=== PATIENT | female | born 1980 | race Two or more races ===

== ENCOUNTER 2018-07-02 20:36 | Inpatient (IN) | payer MEDICAID ==
--- NOTE | 2018-07-02 20:55 | ER Document Report ---
ED General - General Stated Complaint: SHORTNESS OF BREATH Time Seen by Provider: 07/02/18 20:47 Notes: Patient is a 37-year-old female with history of alcohol and IV drug use that presents to the emergency department for chief complaint of leg swelling and shortness of breath. Patient states that she is been having swelling in her legs over the past 3 weeks, but over the past 48 hours she is in having difficulty breathing and had swelling of through her abdomen, and into her breast which she is never had before. She is had pain across her abdomen as well. She states is been harder for her to breathe, she does not wear oxygen at home, she denies history of COPD or heart failure. She thinks this may be related to her liver, but denies history of known liver disease. She states she drinks about 24 beers daily. She also has a history of IV drug use, but denies any of that today. She also reports having a history of anemia, denies sickle cell anemia, is not sure where her numbers usually are, denies having any melena, black or tarry stools. Past Medical History: Anemia, alcoholism, IV drug use Past Surgical History: C-sections Social History: Admits to smoking cigarettes, and drinking 24 beers daily, and history of IV drug use Family History: Reviewed and noncontributory for presenting illness Allergies: Reviewed, see documented allergy list. REVIEW OF SYSTEMS: Other than noted above, the 12 point review of systems was reviewed with the vladimir lewis and were negative, all pertinent findings are included in the HPI. PHYSICAL EXAMINATION: Vital signs reviewed, nursing noted reviewed. GENERAL: Patient is obese, appears significantly older than stated age, increased work of breathing HEAD: Atraumatic, normocephalic. EYES: Eyes appear normal, extraocular movements intact, conjunctiva are normal. Mild scleral icterus noted ENT: nares patent, oropharynx clear without exudates. Moist mucous membranes. NECK: Normal range of motion, supple without lymphadenopathy LUNGS: Diminished lung sounds at the bases, increased work of breathing, shallow breathing. HEART: Regular rate and rhythm without murmurs ABDOMEN: Abdomen is distended, firm, diffuse anasarca, up to the breasts. There is erythema around the lower abdomen, and is tender to palpate over the skin in these areas. EXTREMITIES: 3+ pitting edema to the thighs, bilaterally and equal, no erythema NEUROLOGICAL: No focal neurological deficits. Moves all extremities spon taneously Motor and sensory grossly intact on exam. PSYCH: Flat affect SKIN: Warm, Dry, normal turgor, erythema to the abdomen, stasis changes to the skin of the lower extremities Past Medical History - Social History Smoking Status: Current Every Day Smoker Family History: Reviewed & Not Pertinent Physical Exam - Vital signs Vitals: Temp Pulse Resp BP Pulse Ox 98.2 F 90 28 H 158/109 H 99 07/02/18 20:36 07/02/18 20:36 07/02/18 20:36 07/02/18 20:36 07/02/18 20:36 Course - Re-evaluation Re-evalutation: Patient seen and examined vital signs reviewed. Laboratory data and imaging were ordered as appropriate for the patient's presenting symptoms and complaint, with consideration of any critical or life threatening conditions that may be associated with their obtained history and exam as noted above. Patient was treated with IV Lasix, and was given a dose of IV Ancef, for concern for abdominal wall cellulitis Results were reviewed when available and demonstrated significant anemia, microcytic, likely iron deficiency, given history of heavy menstrual periods, CT imaging of the abdomen and pelvis demonstrated diffuse anasarca, but no abdominal wall abscess or intra-abdominal process, the chest x-ray of this patient demonstrated pulmonary edema, fitting with the patient's clinical setting of fluid overload, blood work that demonstrated a hyperbilirubinemia of 2.2, with slight elevation of AST and alk phos, INR was normal. 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 Blood cultures were ordered as well. Results were discussed with the patient at this point after careful consideration I feel that that patient should be admitted to the hospital. This was discussed with the patient that it is in the best interest for their care to be admitted for further evaluation and management. Patient agreed with this plan of care. A call was placed to the admitted physician, Dr. Finn who graciously accepted the patient onto their service. *Note is created using voice recognition software and may contain spelling, syntax or grammatical errors. Laboratory 07/02/18 07/02/18 07/02/18 20:40 20:40 20:40 WBC 9.6 RBC 3.70 L Hgb 7.1 L Hct 25.0 L MCV 67 L MCH 19.3 L MCHC 28.6 L RDW 23.9 H Plt Count 272 Total Counted 100 Seg Neutrophils % Not Reportable Seg Neuts % (Manual) 66 Band Neutrophils % 1 L Lymphocytes % Not Reportable Lymphocytes % (Manual) 23 Monocytes % Not Reportable Monocytes % (Manual) 6 Eosinophils % Not Reportable Eosinophils % (Manual) 4 Basophils % Not Reportable Basophils % (Manual) 0 Absolute Neutrophils Not Reportable Abs Neuts (Manual) 6.4 Absolute Lymphocytes Not Reportable Abs Lymphs (Manual) 2.2 Absolute Monocytes Not Reportable Abs Monocytes (Manual) 0.6 Absolute Eosinophils Not Reportable Absolute Eos (Manual) 0.4 Absolute Basophils Not Reportable Abs Basophils (Manual) 0.0 Nucleated RBCs 1 Platelet Comment ADEQUATE Polychromasia 1+ Hypochromasia 3+ Poikilocytosis 1+ Anisocytosis 3+ Target Cells 1+ Retic Count (auto) Absolute Retic PT INR APTT Sodium 131.4 L Potassium 3.8 Chloride 92 L Carbon Dioxide 25 Anion Gap 14 BUN 3 L Creatinine 0.78 Est GFR ( Amer) > 60 Est GFR (Non-Af Amer) > 60 Glucose 78 Lactic Acid Calcium 8.6 Total Bilirubin 2.2 H Direct Bilirubin 1.8 H Neonat Total Bilirubin Not Reportable Neonat Direct Bilirubin Not Reportable Neonat Indirect Bili Not Reportable AST 47 H ALT 23 Alkaline Phosphatase 210 H Troponin I < 0.012 NT-Pro-B Natriuret Pep Total Protein 7.7 Albumin 3.2 L Lipase 91.0 TSH Urine Color Urine Appearance Urine pH Ur Specific [place] Urine Protein Urine Glucose (UA) Urine Ketones Urine Blood Urine Nitrite Urine Bilirubin Urine Urobilinogen Ur Leukocyte Esterase Urine WBC (Auto) Squamous Epi Cells Auto Urine Mucus (Auto) Urine Ascorbic Acid Urine Opiates Screen Urine Methadone Screen Ur Barbiturates Screen Ur Phencyclidine Scrn Ur Amphetamines Screen U Benzodiazepines Scrn Urine Cocaine Screen U Marijuana (THC) Screen Blood Type Antibody Screen 07/02/18 07/02/1807/02/19 20:40 20:40 20:40 WBC RBC Hgb Hct MCV MCH MCHC RDW Plt Count Total Counted Seg Neutrophils % Seg Neuts % (Manual) Band Neutrophils % Lymphocytes % Lymphocytes % (Manual) Monocytes % Monocytes % (Manual) Eosinophils % Eosinophils % (Manual) Basophils % Basophils % (Manual) Absolute Neutrophils Abs Neuts (Manual) Absolute Lymphocytes Abs Lymphs (Manual) Absolute Monocytes Abs Monocytes (Manual) Absolute Eosinophils Absolute Eos (Manual) Absolute Basophils Abs Basophils (Manual) Nucleated RBCs Platelet Comment Polychromasia Hypochromasia Poikilocytosis Anisocytosis Target Cells Retic Count (auto) Absolute Retic PT 15.5 H INR 1.17 APTT 31.1 Sodium Potassium Chloride Carbon Dioxide Anion Gap BUN Creatinine Est GFR ( Amer) Est GFR (Non-Af Amer) Glucose Lactic Acid 1.6 Calcium Total Bilirubin Direct Bilirubin Neonat Total Bilirubin Neonat Direct Bilirubin Neonat Indirect Bili AST ALT Alkaline Phosphatase Troponin I NT-Pro-B Natriuret Pep 1710 H Total Protein Albumin Lipase TSH Urine Color Urine Appearance Urine pH Ur Specific [place] Urine Protein Urine Glucose (UA) Urine Ketones Urine Blood Urine Nitrite Urine Bilirubin Urine Urobilinogen Ur Leukocyte Esterase Urine WBC (Auto) Squamous Epi Cells Auto Urine Mucus (Auto) Urine Ascorbic Acid Urine Opiates Screen Urine Methadone Screen Ur Barbiturates Screen Ur Phencyclidine Scrn Ur Amphetamines Screen U Benzodiazepines Scrn Urine Cocaine Screen U Marijuana (THC) Screen Blood Type Antibody Screen 07/02/18 07/02/18 07/02/18 20:40 20:40 22:21 WBC RBC Hgb Hct MCV MCH MCHC RDW Plt Count Total Counted Seg Neutrophils % Seg Neuts % (Manual) Band Neutrophils % Lymphocytes % Lymphocytes % (Manual) Monocytes % Monocytes % (Manual) Eosinophils % Eosinophils % (Manual) Basophils % Basophils % (Manual) Absolute Neutrophils Abs Neuts (Manual) Absolute Lymphocytes Abs Lymphs (Manual) Absolute Monocytes Abs Monocytes (Manual) Absolute Eosinophils Absolute Eos (Manual) Absolute Basophils Abs Basophils (Manual) Nucleated RBCs Platelet Comment Polychromasia Hypochromasia Poikilocytosis Anisocytosis Target Cells Retic Count (auto) 4.65 H Absolute Retic 0.170 H PT INR APTT Sodium Potassium Chloride Carbon Dioxide Anion Gap BUN Creatinine Est GFR ( Amer) Est GFR (Non-Af Amer) Glucose Lactic Acid Calcium Total Bilirubin Direct Bilirubin Neonat Total Bilirubin Neonat Direct Bilirubin Neonat Indirect Bili AST ALT Alkaline Phosphatase Troponin I NT-Pro-B Natriuret Pep Total Protein Albumin Lipase TSH 3.60 Urine Color Urine Appearance Urine pH Ur Specific [place] Urine Protein Urine Glucose (UA) Urine Ketones Urine Blood Urine Nitrite Urine Bilirubin Urine Urobilinogen Ur Leukocyte Esterase Urine WBC (Auto) Squamous Epi Cells Auto Urine Mucus (Auto) Urine Ascorbic Acid Urine Opiates Screen Urine Methadone Screen Ur Barbiturates Screen Ur Phencyclidine Scrn Ur Amphetamines Screen U Benzodiazepines Scrn Urine Cocaine Screen U Marijuana (THC) Screen Blood Type A NEGATIVE Antibody Screen NEGATIVE 07/02/18 07/02/18 22:42 22:42 WBC RBC Hgb Hct MCV MCH MCHC RDW Plt Count Total Counted Seg Neutrophils % Seg Neuts % (Manual) Band Neutrophils % Lymphocytes % Lymphocytes % (Manual) Monocytes % Monocytes % (Manual) Eosinophils % Eosinophils % (Manual) Basophils % Basophils % (Manual) Absolute Neutrophils Abs Neuts (Manual) Absolute Lymphocytes Abs Lymphs (Manual) Absolute Monocytes Abs Monocytes (Manual) Absolute Eosinophils Absolute Eos (Manual) Absolute Basophils Abs Basophils (Manual) Nucleated RBCs Platelet Comment Polychromasia Hypochromasia Poikilocytosis Anisocytosis Target Cells Retic Count (auto) Absolute Retic PT INR APTT Sodium Potassium Chloride Carbon Dioxide Anion Gap BUN Creatinine Est GFR ( Amer) Est GFR (Non-Af Amer) Glucose Lactic Acid Calcium Total Bilirubin Direct Bilirubin Neonat Total Bilirubin Neonat Direct Bilirubin Neonat Indirect Bili AST ALT Alkaline Phosphatase Troponin I NT-Pro-B Natriuret Pep Total Protein Albumin Lipase TSH Urine Color YELLOW Urine Appearance CLEAR Urine pH 6.0 Ur Specific [place] 1.003 Urine Protein NEGATIVE Urine Glucose (UA) NEGATIVE Urine Ketones TRACE H Urine Blood MODERATE H Urine Nitrite NEGATIVE Urine Bilirubin NEGATIVE Urine Urobilinogen NEGATIVE Ur Leukocyte Esterase NEGATIVE Urine WBC (Auto) 0 Squamous Epi Cells Auto <1 Urine Mucus (Auto) RARE Urine Ascorbic Acid NEGATIVE Urine Opiates Screen NEGATIVE Urine Methadone Screen NEGATIVE Ur Barbiturates Screen NEGATIVE Ur Phencyclidine Scrn NEGATIVE Ur Amphetamines Screen NEGATIVE U Benzodiazepines Scrn NEGATIVE Urine Cocaine Screen UNCONFIRMED POSITIVE U Marijuana (THC) Screen NEGATIVE Blood Type Antibody Screen - Vital Signs Vital signs: Temp Pulse Resp BP Pulse Ox 98.2 F 90 28 H 92/64 L 97 07/02/18 20:36 07/02/18 20:36 07/03/18 02:03 07/03/18 02:03 07/03/18 01:46 - Laboratory Result Diagrams: 07/02/18 20:40 07/02/18 20:40 Laboratory results interpreted by me: 07/02/18 07/02/18 07/02/18 20:40 20:40 20:40 RBC 3.70 L Hgb 7.1 L Hct 25.0 L MCV 67 L MCH 19.3 L MCHC 28.6 L RDW 23.9 H Band Neutrophils % 1 L Retic Count (auto) Absolute Retic PT 15.5 H Sodium 131.4 L Chloride 92 L BUN 3 L Total Bilirubin 2.2 H Direct Bilirubin 1.8 H AST 47 H Alkaline Phosphatase 210 H NT-Pro-B Natriuret Pep Albumin 3.2 L Urine Ketones Urine Blood 07/02/18 07/02/18 07/02/18 20:40 20:40 22:42 RBC Hgb Hct MCV MCH MCHC RDW Band Neutrophils % Retic Count (auto) 4.65 H Absolute Retic 0.170 H PT Sodium Chloride BUN Total Bilirubin Direct Bilirubin AST Alkaline Phosphatase NT-Pro-B Natriuret Pep 1710 H Albumin Urine Ketones TRACE H Urine Blood MODERATE H - EKG Interpretation by Me Additional EKG results interpreted by me: EKG demonstrates sinus rhythm with a ventricular rate of 90 bpm, normal axis, QTC 490 ms, no ST elevation noted, no prior for comparison. Discharge - Discharge Clinical Impression: Anasarca, Hyperbilirubinemia, Alcoholism Anemia Qualifiers: Anemia type: unspecified type Qualified Code(s): D64.9 - Anemia, unspecified Pulmonary edema Qualifiers: Chronicity: acute Qualified Code(s): J81.0 - Acute pulmonary edema Condition: Stable Disposition: ADMITTED INPATIENT Admitting Provider: Hospitalist - Dr. Finn Unit Admitted: Telemetry
[2018-07-02 21:16] LABS: MEAN CORPUSCULAR HGB CONC 28.6 g/dL (32.0-36.0)
--- NOTE | 2018-07-02 21:16 | EKG REPORT ---
SEVERITY:- BORDERLINE ECG - SINUS RHYTHM BORDERLINE T ABNORMALITIES, ANTERIOR LEADS BORDERLINE PROLONGED QT INTERVAL : Confirmed by: Jaspal Perez MD 02-Jul-2018 21:15:28
[2018-07-02 21:22] LABS: ALANINE AMINOTRANSFERASE 23 U/L (9-52); ALBUMIN 3.2 g/dL (3.5-5.0); ALKALINE PHOSPHATASE 210 U/L (38-126); ANION GAP 14 (5-19); ASPARTATE AMINO TRANSFERASE 47 U/L (14-36); BILIRUBIN,DIRECT 1.8 mg/dL (0.0-0.4); BILIRUBIN,TOTAL 2.2 mg/dL (0.2-1.3); BLOOD UREA NITROGEN 3 mg/dL (7-20); CALCIUM 8.6 mg/dL (8.4-10.2); CARBON DIOXIDE 25 mmol/L (22-30); CHLORIDE 92 mmol/L (98-107); GLUCOSE 78 mg/dL (75-110); POTASSIUM 3.8 mmol/L (3.6-5.0); SODIUM 131.4 mmol/L (137-145); TOTAL PROTEIN 7.7 g/dL (6.3-8.2)
[2018-07-02 21:25] LABS: MEAN CORPUSCULAR HEMOGLOBIN 19.3 pg (27.0-33.4); MEAN CORPUSCULAR VOLUME 67 fl (80-97); PLATELET COUNT 272 10^3/uL (150-450); RED CELL DISTRIBUTION WIDTH 23.9 % (11.5-14.0); WHITE BLOOD COUNT 9.6 10^3/uL (4.0-10.5)
[2018-07-02 21:32] LABS: HEMOGLOBIN 7.1 g/dL (12.0-15.5); INTERNATIONAL RATION (INR) 1.17; PROTHROMBIN TIME 15.5 SEC (11.4-15.4)
[2018-07-02 21:33] LABS: PARTIAL THROMBOPLASTIN TIME 31.1 SEC (23.5-35.8)
[2018-07-02 21:38] LABS: ABSOLUTE LYMPHOCYTES# (MANUAL) 2.2 10^3/uL (0.5-4.7); ABSOLUTE MONOCYTES # (MANUAL) 0.6 10^3/uL (0.1-1.4); ABSOLUTE NEUTROPHILS# (MANUAL) 6.4 10^3/uL (1.7-8.2); BAND NEUTROPHILS % (MANUAL) 1 % (3-5); BASOPHILS % (MANUAL) 0 % (0-2); EOSINOPHILS % (MANUAL) 4 % (0-6); LYMPHOCYTES % (MANUAL) 23 % (13-45); MONOCYTES % (MANUAL) 6 % (3-13); NUCLEATED RED BLOOD CELLS 1 /100 WBC (0); SEGMENTED NEUTROPHILS % (MAN) 66 % (42-78); TOTAL CELLS COUNTED 100
[2018-07-02 21:44] LABS: POLYCHROMASIA 1+
[2018-07-02 21:45] LABS: ANISOCYTOSIS 3+; HYPOCHROMASIA 3+; PLATELET COMMENT ADEQUATE; POIKILOCYTOSIS 1+; TARGET CELLS 1+
--- NOTE | 2018-07-02 21:46 | RADIOLOGY REPORT (SQ) ---
EXAM DESCRIPTION: XR CHEST 1 VIEW COMPLETED DATE/TME: 07/02/2018 21:05 CLINICAL HISTORY: 37 years, Female, shortness of breath Comparison: None FINDINGS: No focal lung consolidation. Right hemidiaphragm is elevated. No pleural effusion. No pneumothorax. Moderate cardiomegaly. Mild central pulmonary vascular congestion. No acute osseous abnormality. Soft tissues are unremarkable. IMPRESSION: Moderate cardiomegaly and mild central pulmonary vascular congestion.
[2018-07-02] MEDS ORDERED: FUROSEMIDE INJ/PF 40 MG/4 ML SDV IV ONE (21:52)
[2018-07-02] MEDS ORDERED: CEFAZOLIN 2 GM/D5W RTU 2 GM/50 ML RTUPB IV ONE (22:45)
[2018-07-02 23:07] LABS: APPEARANCE,URINE CLEAR; BILIRUBIN,URINE NEGATIVE (NEGATIVE); COLOR,URINE YELLOW; GLUCOSE, URINE NEGATIVE (NEGATIVE); KETONES,URINE TRACE mg/dL (NEGATIVE); LEUKOCYTE ESTERASE,URINE NEGATIVE (NEGATIVE); NITRITE,URINE NEGATIVE (NEGATIVE); PROTEIN,URINE NEGATIVE (NEGATIVE); URINE SPECIFIC GRAVITY 1.003; UROBILINOGEN,URINE NEGATIVE mg/dL (<2.0)
--- NOTE | 2018-07-03 00:52 | RADIOLOGY REPORT (SQ) ---
EXAM DESCRIPTION: CT ABDOMEN PELVIS WITH IV CONTRAST COMPLETED DATE/TME: 07/02/2018 23:19 CLINICAL HISTORY: 37 years, Female, abdominal wall cellulitis, anasarca COMPARISON: None. TECHNIQUE: Axial CT images of the abdomen and pelvis were obtained after demonstration of IV contrast. Sagittal and coronal reformats were performed. [facility] [id number] Images stored on PACS. All CT scanners at this facility use dose modulation, iterative reconstruction, and/or weight based dosing when appropriate to reduce radiation dose to as low as reasonably achievable (ALARA). [facility]: Dose Right [facility]: CareDose [facility]: Dose Right [facility]: Teradose 4D [facility]: Smart Memvu LIMITATIONS: None. FINDINGS: Lung bases are clear. The liver is hypodense with involvement of perihepatic fluid. The gallbladder, pancreas, spleen, and adrenal glands are unremarkable. Both kidneys appear normal with no evidence of hydronephrosis. There is a mild amount of free fluid. There is no intraperitoneal free air. There is no lymphadenopathy. The abdominal aorta is normal caliber. There is diffuse anasarca. There is no focal fluid collection or abscess identified. The stomach and small bowel are unremarkable. The appendix is not uniquely identified. The colon is distended. The uterus is unremarkable. The urinary bladder is decompressed by a Blank catheter. There are no lytic or blastic bone lesions. IMPRESSION: Diffuse anasarca with no focal fluid collection or abscess identified. Fatty liver. TECHNICAL DOCUMENTATION: Quality ID # [id number]: Final reports with documentation of one or more dose reduction techniques (e.g., Automated exposure control, adjustment of the mA and/or kV according to patient size, use of iterative reconstruction technique) copyright 2011 [employer]- All Rights Reserved
[2018-07-03] MEDS: CEFAZOLIN INJ 1 GM VIAL ONE ×2 (00:58→01:00)
[2018-07-03] MEDS ORDERED: MAG HYDROX/AL HYDROX/SIMETH SUSP 30 ML UDCUP PO PRN (01:17)
[2018-07-03] MEDS ORDERED: IRON SUCROSE COMPLEX INJ/PF 100 MG/5 ML SDV IV ONE ×2 (01:17→04:15)
[2018-07-03] MEDS ORDERED: ACETAMINOPHEN 325 MG TABLET PO PRN (01:17)
[2018-07-03 01:40] LABS: RETICULOCYTE COUNT (AUTO) 4.65 % (0.66-2.85)
[2018-07-03 02:03] LABS: IRON(TIBC) 14.7 ug/dL (37-170)
[2018-07-03 02:41] LABS: FERRITIN 9.72 ng/mL (6.2-137.0)
[2018-07-03] MEDS: POTASSIUM CHLORIDE 10 MEQ CAPSULE.ER PO SCH ×2 (02:46→10:12)
[2018-07-03] MEDS: FLUCONAZOLE 100 MG TABLET PO SCH ×2 (02:47→10:28)
[2018-07-03 03:01] LABS: URINE AMPHETAMINES SCREEN NEGATIVE; URINE BARBITURATES SCREEN NEGATIVE; URINE BENZODIAZEPINES SCREEN NEGATIVE; URINE COCAINE SCREEN UNCONFIRMED POSITIVE; URINE MARIJUANA (THC) SCREEN NEGATIVE; URINE METHADONE SCREEN NEGATIVE; URINE PHENCYCLIDINE SCREEN NEGATIVE
[2018-07-03] MEDS ORDERED: CEFTRIAXONE 1 GM/D5W RTU 1 GM/50 ML RTUPB IV ONE (05:00)
[2018-07-03] MEDS ORDERED: DEXAMETHASONE 0.5 MG TABLET PO ONE ×2 (05:31→10:00)
--- NOTE | 2018-07-03 05:48 | PDOC H&P ---
History of Present Illness Admission Date/PCP: 07/03/18 01:33 Patient complains of: Swelling History of Present Illness: ZANDER GIBBS is a 37 year old female with a history of morbid obesity, anemia, depression, tobacco, alcohol dependence and IV drug abuse. She presents with 2 weeks of lower extremity and abdominal swelling now with notable difficulty in breathing. She admits fever, denies localized pain, change in urine or new medications. She has no recent medical evaluation. In the emergency department she is found with tachypnea, use of accessory muscles during breathing, profound anemia with anasarca and a systolic murmur. She receives Ancef and referred to the hospitalist for admission. She is a poor historian but denies history of alcoholic hepatitis or bacterial peritonitis. Past Medical History Cardiac Medical History: Reports: None Pulmonary Medical History: Reports: None, Bronchitis Neurological Medical History: Reports: None Endocrine Medical History: Reports: None, Obesity Renal/ Medical History: Reports: None Malignancy Medical History: Reports: None GI Medical History: Reports: None Musculoskeltal Medical History: Reports: None Skin Medical History: Reports: None Psychiatric Medical History: Reports: Alcohol Dependency, Bipolar Disorder, Depression, General Anxiety Disorder, Tobacco Dependency Hematology: Reports: Anemia Past Surgical History Past Surgical History: Reports: None Social History Information Source: Patient, Emergency Med Personnel Lives with: Friend Smoking Status: Current Every Day Smoker Cigarettes Packs Per Day: 1 Frequency of Alcohol Use: Heavy - 24 beers per day with history of seizure Hx Recreational Drug Use: Yes Drugs: Cocaine Hx Prescription Drug Abuse: Yes - Advance Directive Resuscitation Status: Full Code Family History Family History: Reviewed & Not Pertinent Parental Family History Reviewed: Yes Children Family History Reviewed: Yes Sibling(s) Family History Reviewed.: Yes Review of Systems Constitutional: PRESENT: as per HPI, fatigue, fever(s), weakness, weight gain Eyes: ABSENT: visual disturbances Ears: ABSENT: hearing changes Cardiovascular: PRESENT: dyspnea on exertion, edema, orthropnea. ABSENT: chest pain, palpitations Respiratory: PRESENT: as per HPI, dyspnea. ABSENT: hemoptysis, sputum Gastrointestinal: ABSENT: abdominal pain, constipation, diarrhea, hematemesis, hematochezia, nausea, vomiting Genitourinary: ABSENT: dysuria, hematuria Musculoskeletal: ABSENT: joint swelling Integumentary: ABSENT: rash, wounds Neurological: ABSENT: abnormal gait, abnormal speech, confusion, dizziness, fo noah weakness, syncope Psychiatric: PRESENT: depression Endocrine: ABSENT: polydipsia, polyphagia, polyuria Hematologic/Lymphatic: ABSENT: easy bleeding, easy bruising Physical Exam Vital Signs: Temp Pulse Resp BP Pulse Ox 98.5 F 95 29 H 121/68 98 07/03/18 03:23 07/03/18 03:23 07/03/18 03:02 07/03/18 03:23 07/03/18 03:23 Intake & Output 07/01/18 07/02/18 07/03/18 11:59 11:59 11:59 Intake Total 50 Output Total 2675 Balance -2625 Weight 141 kg General appearance: PRESENT: cooperative, disheveled, mild distress, morbidly obese Head exam: PRESENT: atraumatic, normocephalic Eye exam: PRESENT: conjunctiva pink, EOMI, PERRLA. ABSENT: scleral icterus Ear exam: PRESENT: normal external ear exam Mouth exam: PRESENT: moist, tongue midline Neck exam: ABSENT: carotid bruit, JVD, lymphadenopathy, thyromegaly Respiratory exam: PRESENT: accessory muscle use, crackles, prolonged expiratory phas, retraction, symmetrical, tachypnea. ABSENT: stridor, wheezes Cardiovascular exam: PRESENT: +S1, +S2, systolic murmur, tachycardia Pulses: PRESENT: normal dorsalis pedis pul Vascular exam: PRESENT: normal capillary refill GI/Abdominal exam: PRESENT: diminished bowel sounds, distended, firm, hypoactive bowel sounds. ABSENT: ascites, tenderness Rectal exam: PRESENT: deferred Extremities exam: PRESENT: full ROM, pedal edema, +2 edema. ABSENT: tenderness Musculoskeletal exam: PRESENT: tenderness. ABSENT: full ROM Neurological exam: PRESENT: alert, altered, awake, oriented to person, oriented to place, oriented to situation, CN II-XII grossly intact. ABSENT: motor sensory deficit Psychiatric exam: PRESENT: flat affect, unusual affect Skin exam: PRESENT: dry, intact, warm. ABSENT: cyanosis, rash Results Laboratory Results: 07/02/18 20:40 07/02/18 20:40 07/02/18 07/02/18 07/02/18 20:40 20:40 20:40 WBC 9.6 RBC 3.70 L Hgb 7.1 L Hct 25.0 L MCV 67 L MCH 19.3 L MCHC 28.6 L RDW 23.9 H Plt Count 272 Seg Neutrophils % Not Reportable Lymphocytes % Not Reportable Monocytes % Not Reportable Eosinophils % Not Reportable Basophils % Not Reportable Absolute Neutrophils Not Reportable Absolute Lymphocytes Not Reportable Absolute Monocytes Not Reportable Absolute Eosinophils Not Reportable Absolute Basophils Not Reportable Retic Count (auto) Absolute Retic Sodium 131.4 L Potassium 3.8 Chloride 92 L Carbon Dioxide 25 Anion Gap 14 BUN 3 L Creatinine 0.78 Est GFR ( Amer) > 60 Est GFR (Non-Af Amer) > 60 Glucose 78 Lactic Acid 1.6 Calcium 8.6 Total Bilirubin 2.2 H AST 47 H ALT 23 Alkaline Phosphatase 210 H Total Protein 7.7 Albumin 3.2 L Lipase 91.0 TSH Urine Color Urine Appearance Urine pH Ur Specific [place] Urine Protein Urine Glucose (UA) Urine Ketones Urine Blood Urine Nitrite Ur Leukocyte Esterase Urine WBC (Auto) Blood Type Antibody Screen 07/02/18 07/02/18 07/02/18 20:40 20:40 22:21 WBC RBC Hgb Hct MCV MCH MCHC RDW Plt Count Seg Neutrophils % Lymphocytes % Monocytes % Eosinophils % Basophils % Absolute Neutrophils Absolute Lymphocytes Absolute Monocytes Absolute Eosinophils Absolute Basophils Retic Count (auto) 4.65 H Absolute Retic 0.170 H Sodium Potassium Chloride Carbon Dioxide Anion Gap BUN Creatinine Est GFR ( Amer) Est GFR (Non-Af Amer) Glucose Lactic Acid Calcium Total Bilirubin AST ALT Alkaline Phosphatase Total Protein Albumin Lipase TSH 3.60 Urine Color Urine Appearance Urine pH Ur Specific [place] Urine Protein Urine Glucose (UA) Urine Ketones Urine Blood Urine Nitrite Ur Leukocyte Esterase Urine WBC (Auto) Blood Type A NEGATIVE Antibody Screen NEGATIVE 07/02/18 22:42 WBC RBC Hgb Hct MCV MCH MCHC RDW Plt Count Seg Neutrophils % Lymphocytes % Monocytes % Eosinophils % Basophils % Absolute Neutrophils Absolute Lymphocytes Absolute Monocytes Absolute Eosinophils Absolute Basophils Retic Count (auto) Absolute Retic Sodium Potassium Chloride Carbon Dioxide Anion Gap BUN Creatinine Est GFR ( Amer) Est GFR (Non-Af Amer) Glucose Lactic Acid Calcium Total Bilirubin AST ALT Alkaline Phosphatase Total Protein Albumin Lipase TSH Urine Color YELLOW Urine Appearance CLEAR Urine pH 6.0 Ur Specific [place] 1.003 Urine Protein NEGATIVE Urine Glucose (UA) NEGATIVE Urine Ketones TRACE H Urine Blood MODERATE H Urine Nitrite NEGATIVE Ur Leukocyte Esterase NEGATIVE Urine WBC (Auto) 0 Blood Type Antibody Screen 07/02/18 07/02/18 20:40 20:40 Troponin I < 0.012 NT-Pro-B Natriuret Pep 1710 H Impressions: Chest X-Ray 07/02/18 21:05 IMPRESSION: Moderate cardiomegaly and mild central pulmonary vascular congestion. Abdomen/Pelvis CT 07/02/18 23:19 IMPRESSION: Diffuse anasarca with no focal fluid collection or abscess identified. Fatty liver. 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 Is this a current diagnosis for this admission?: Yes Plan: Follow-up dexamethasone suppression test, ACTH and consider MRI pituitary (3) Alcoholism Is this a current diagnosis for this admission?: Yes Plan: Thiamine, folate, as needed Ativan, anticipate withdrawal given history (4) Anasarca Is this a current diagnosis for this admission?: Yes Plan: 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 - Time Time Spent: 50 to 70 Minutes - Inpatient Certification Medical Necessity: Need Close Monitoring Due to Risk of Patient Decompensation
[2018-07-03] MEDS: HEPARIN SOD (PORCINE) 5,000 UNIT/ML 1 ML SYRINGE SUBCUT SCH ×3 (06:28→21:13)
[2018-07-03 08:03] LABS: FOLATE 4.27 ng/mL (>2.76)
[2018-07-03] MEDS: DOCUSATE SODIUM 100 MG CAPSULE PO SCH ×2 (10:12→17:02)
[2018-07-03] MEDS: KETOCONAZOLE 2% SHAMPOO 120 ML BOTTLE TP SCH (10:14)
[2018-07-03] MEDS: FUROSEMIDE INJ/PF 40 MG/4 ML SDV IV SCH (10:27)
[2018-07-03] MEDS: CEFTRIAXONE 1 GM/D5W RTU 1 GM/50 ML RTUPB IV SCH (10:29)
[2018-07-03] MEDS: LORAZEPAM INJ 2 MG/1 ML VIAL IV PRN ×2 (16:21→21:19)
[2018-07-03] MEDS: ALBUMIN HUMAN 12.5 GM/50 ML RTUINJ IV SCH ×2 (16:59→17:12)
[2018-07-03] MEDS ORDERED: NORMAL SALINE 250 ML IV PRN ×2 (17:05)
[2018-07-03] MEDS: THIAMINE HCL 100 MG TABLET PO SCH (17:29)
[2018-07-03] MEDS ORDERED: NORMAL SALINE 1000 ML 1,000 ML with POTASSIUM CHLORIDE 20 MEQ, MAGNESIUM SULFATE 8 MEQ,... IV SCH ×4 (18:00)
--- NOTE | 2018-07-03 18:46 | PDOC PROGRESS REPORT ---
Subjective Progress Note for:: 07/03/18 Subjective:: 37 year old female with a history of morbid obesity, anemia, depression, tobacco, alcohol dependence and IV drug abuse. She presents with 2 weeks of lower extremity and abdominal swelling now with notable difficulty in breathing. She admits fever, denies localized pain, change in urine or new medications. She has no recent medical evaluation. In the emergency department she is found with tachypnea, use of accessory muscles during breathing, profound anemia with anasarca and a systolic murmur. She receives Ancef and referred to the hospitalist for admission. She is a poor historian but denies history of alcoholic hepatitis or bacterial peritonitis. 07/03/2018-no acute events since the admission. Patient was more from a third floor to room #405. This is because patient was admitted under telemetry. Patient is complaining of anxiety and agitation we started her on IV Ativan. Patient is also history of alcohol use be going to watch for the DTs. Reason For Visit: ANASARCA SOB IV DRUG USE Physical Exam Vital Signs: Temp Pulse Resp BP Pulse Ox 99.4 F 106 H 18 133/74 H 95 07/03/18 11:10 07/03/18 17:40 07/03/18 17:40 07/03/18 11:10 07/03/18 17:40 Intake & Output 07/02/18 07/03/18 07/04/18 06:59 06:59 06:59 Intake Total 50 525 Output Total 2950 1100 Balance -2900 -575 Weight 137.9 kg General appearance: PRESENT: mild distress, morbidly obese Head exam: PRESENT: atraumatic Eye exam: PRESENT: PERRLA Mouth exam: PRESENT: moist, tongue midline Neck exam: ABSENT: carotid bruit, JVD, lymphadenopathy, thyromegaly Respiratory exam: PRESENT: decreased breath sounds Cardiovascular exam: PRESENT: tachycardia GI/Abdominal exam: PRESENT: ascites Extremities exam: PRESENT: full ROM. ABSENT: calf tenderness, clubbing, pedal edema Neurological exam: PRESENT: alert, awake, CN II-XII grossly intact. ABSENT: motor sensory deficit Psychiatric exam: PRESENT: agitated, anxious Results Laboratory Results: 07/02/18 20:40 07/02/18 20:40 07/02/18 07/02/18 07/02/18 20:40 20:40 20:40 WBC 9.6 RBC 3.70 L Hgb 7.1 L Hct 25.0 L MCV 67 L MCH 19.3 L MCHC 28.6 L RDW 23.9 H Plt Count 272 Seg Neutrophils % Not Reportable Lymphocytes % Not Reportable Monocytes % Not Reportable Eosinophils % Not Reportable Basophils % Not Reportable Absolute Neutrophils Not Reportable Absolute Lymphocytes Not Reportable Absolute Monocytes Not Reportable Absolute Eosinophils Not Reportable Absolute Basophils Not Reportable Retic Count (auto) Absolute Retic Sodium 131.4 L Potassium 3.8 Chloride 92 L Carbon Dioxide 25 Anion Gap 14 BUN 3 L Creatinine 0.78 Est GFR ( Amer) > 60 Est GFR (Non-Af Amer) > 60 Glucose 78 Lactic Acid 1.6 Calcium 8.6 Magnesium Iron TIBC % Saturation Ferritin Total Bilirubin 2.2 H AST 47 H ALT 23 Alkaline Phosphatase 210 H Total Protein 7.7 Albumin 3.2 L Lipase 91.0 Vitamin B12 Folate TSH Urine Color Urine Appearance Urine pH Ur Specific [place] Urine Protein Urine Glucose (UA) Urine Ketones Urine Blood Urine Nitrite Ur Leukocyte Esterase Urine WBC (Auto) Blood Type Antibody Screen 07/02/18 07/02/18 07/02/18 20:40 20:40 20:40 WBC RBC Hgb Hct MCV MCH MCHC RDW Plt Count Seg Neutrophils % Lymphocytes % Monocytes % Eosinophils % Basophils % Absolute Neutrophils Absolute Lymphocytes Absolute Monocytes Absolute Eosinophils Absolute Basophils Retic Count (auto) 4.65 H Absolute Retic 0.170 H Sodium Potassium Chloride Carbon Dioxide Anion Gap BUN Creatinine Est GFR ( Amer) Est GFR (Non-Af Amer) Glucose Lactic Acid Calcium Magnesium 1.7 Iron 14.7 L TIBC 385 % Saturation 4 Ferritin 9.72 Total Bilirubin AST ALT Alkaline Phosphatase Total Protein Albumin Lipase Vitamin B12 530.0 Folate 4.27 TSH 3.60 Urine Color Urine Appearance Urine pH Ur Specific [place] Urine Protein Urine Glucose (UA) Urine Ketones Urine Blood Urine Nitrite Ur Leukocyte Esterase Urine WBC (Auto) Blood Type Antibody Screen 07/02/18 07/02/18 22:21 22:42 WBC RBC Hgb Hct MCV MCH MCHC RDW Plt Count Seg Neutrophils % Lymphocytes % Monocytes % Eosinophils % Basophils % Absolute Neutrophils Absolute Lymphocytes Absolute Monocytes Absolute Eosinophils Absolute Basophils Retic Count (auto) Absolute Retic Sodium Potassium Chloride Carbon Dioxide Anion Gap BUN Creatinine Est GFR ( Amer) Est GFR (Non-Af Amer) Glucose Lactic Acid Calcium Magnesium Iron TIBC % Saturation Ferritin Total Bilirubin AST ALT Alkaline Phosphatase Total Protein Albumin Lipase Vitamin B12 Folate TSH Urine Color YELLOW Urine Appearance CLEAR Urine pH 6.0 Ur Specific [place] 1.003 Urine Protein NEGATIVE Urine Glucose (UA) NEGATIVE Urine Ketones TRACE H Urine Blood MODERATE H Urine Nitrite NEGATIVE Ur Leukocyte Esterase NEGATIVE Urine WBC (Auto) 0 Blood Type A NEGATIVE Antibody Screen NEGATIVE 07/02/18 07/02/18 20:40 20:40 Troponin I < 0.012 NT-Pro-B Natriuret Pep 1710 H Impressions: Chest X-Ray 07/02/18 21:05 IMPRESSION: Moderate cardiomegaly and mild central pulmonary vascular congestion. Abdomen/Pelvis CT 07/02/18 23:19 IMPRESSION: Diffuse anasarca with no focal fluid collection or abscess identified. Fatty liver. TECHNICAL DOCUMENTATION: Quality ID # [id number]: Final reports with documentation of one or more dose reduction techniques (e.g., Automated exposure control, adjustment of the mA and/or kV according to patient size, use of iterative reconstruction technique) copyright 2011 [employer]- All Rights Reserved Assessment & Plan - Diagnosis (1) Alcoholism Is this a current diagnosis for this admission?: Yes Plan: 07/03/2018 patient history of heavy alcohol use be placed on Ativan 1 mg IV every 2 as needed for the DTs. (2) Morbid obesity with BMI of 40.0-44.9, adult Is this a current diagnosis for this admission?: No Plan: 07/03/2018 patient BMI is more than 45 diet exercise weight loss lifestyle modifications are discussed with the patient. Dietary consult was requested. (3) Anemia Qualifiers: Anemia type: unspecified type Qualified Code(s): D64.9 - Anemia, unspecified Is this a current diagnosis for this admission?: Yes Plan: 07/03/2018-patient has a history of anemia of chronic disease with a baseline hemoglobin level admission hemoglobin 7.1 to give 1 unit of PRBC and to recheck the labs tomorrow. Chronic anemia may be secondary to liver failure. (4) Hyperbilirubinemia Is this a current diagnosis for this admission?: Yes Plan: 07/03/2018 hyperbilirubinemia may be secondary to liver failure due to alcohol abuse. Be going to do the hepatitis profile. (5) Ananya's disease Is this a current diagnosis for this admission?: No Plan: 07/03/2018-patient has morbid obesity [place]'s syndrome the lab results are pending. Cortisol is 20.5 and a.m. cortisol is 17.5 which is normal. (6) Anasarca Is this a current diagnosis for this admission?: No Plan: 07/03/2018 patient has anasarca with ascites and peripheral/third spacing of the fluids patient is on Lasix patient was given IV albumin 50 g today. Dietary consult was requested. - Time Time Spent with patient: 15-24 minutes Medications reviewed and adjusted accordingly: Yes Anticipated discharge: Home
--- NOTE | 2018-07-03 20:59 | XCELERA REPORT ---
[address] [address] Transthoracic Echocardiogram Report Name: ZANDER GIBBS Age: 37 yrs Gender: Female : 1980 Patient Status: Inpatient Patient Location: [address] [place], [place] [address] Study Date: 07/03/2018 01:23 PM Height: 63 in Weight: 310 lb BSA: 2.3 m2 Procedure: A two-dimensional transthoracic echocardiogram with color flow and Doppler was performed. The study was technically difficult with many images being suboptimal in quality. The study was technically limited with all images being suboptimal in quality. Reason For Study: systolic murmur IV drugs History: systolic murmur IV drugs. Ordering Physician: RAMY VARGHESE Performed By: Kelvin Gibbons Interpretation Summary systolic murmur IV drugs The left ventricle is normal in size. LV EF is 65% The left ventricular ejection fraction is within normal limits. Doppler measurements suggest impaired left ventricular relaxation, which is associated with grade I/IV or mild diastolic dysfunction The left ventricular wall motion is normal. The right ventricle is grossly normal size. The right atrium is normal. The left atrial size is normal. There is no evidence of mitral valve prolapse. There is no mitral valve stenosis. There is no mitral regurgitation noted. There is no aortic valvular vegetation. There is mild aortic stenosis There is a peak gradient of 25 mm of Hg. There is no tricuspid stenosis. There is a mild amount of tricuspid regurgitation There is moderate pulmonary hypertension by echo RVSP is 57 mm of Hg , with RA mean of 10. There is no pericardial effusion. MMode/2D Measurements & Calculations RVDd: 4.2 cm LVIDd: 4.5 cm FS: 35.6 % Ao root diam: 2.8 cm IVSd: 1.0 cm LVIDs: 2.9 cm EDV(Teich): 91.2 ml Ao root area: 6.2 cm2 LVPWd: 1.1 cm ESV(Teich): 31.7 ml LA dimension: 3.7 cm EF(Teich): 65.2 % Doppler Measurements & Calculations MV E max justina: MV P1/2t max justina: Ao V2 max: LV V1 max P.1 cm/sec 131.0 cm/sec 251.0 cm/sec 12.6 mmHg MV A max justina: MV P1/2t: 56.9 msec Ao max PG: LV V1 max: 137.1 cm/sec MVA(P1/2t): 3.9 cm2 25.2 mmHg 177.7 cm/sec MV E/A: 0.92 MV dec slope: 673.8 cm/sec2 MV dec time: 0.24 sec PA V2 max: TR max justina: MV P1/2t-pr_phl: 122.2 cm/sec 339.3 cm/sec 56.9 msec PA max P.0 mmHgTR max P.1 mmHg Left Ventricle The left ventricle is normal in size. There is normal left ventricular wall thickness. LV EF is 65%. The left ventricular ejection fraction is within normal limits. Doppler measurements suggest impaired left ventricular relaxation, which is associated with grade I/IV or mild diastolic dysfunction. The left ventricular wall motion is normal. Right Ventricle The right ventricle is grossly normal size. The right ventricle is not well visualized secondary to technical limitations. Atria The right atrium is normal. The left atrial size is normal. Mitral Valve There is no evidence of mitral valve prolapse. There is no vegetation seen on the mitral valve. There is no mitral valve stenosis. There is no mitral regurgitation noted. Aortic Valve There is no aortic valvular vegetation. There is mild aortic stenosis. There is a peak gradient of 25 mm of Hg. There is no LVOT obstruction. No aortic regurgitation is present. Tricuspid Valve There is no tricuspid stenosis. There is a mild amount of tricuspid regurgitation. There is moderate pulmonary hypertension by echo. RVSP is 57 mm of Hg , with RA mean of 10. Pulmonic Valve The pulmonic valve is not well visualized. There is no pulmonic valvular stenosis. There is no pulmonic valvular regurgitation. Effusions There is no pericardial effusion. : RAMY VARGHESE > Venus Winkler
[2018-07-03] MEDS ORDERED: CHLORPROMAZINE HCL INJ 25 MG/1 ML AMPULE IV PRN (23:30)
[2018-07-03] MEDS ORDERED: CHLORPROMAZINE HCL INJ 25 MG/1 ML AMPULE ONE (23:50)
[2018-07-04] MEDS: HEPARIN SOD (PORCINE) 5,000 UNIT/ML 1 ML SYRINGE SUBCUT SCH ×3 (05:24→22:49)
[2018-07-04 05:53] LABS: HEMATOCRIT 24.9 % (36.0-47.0); MEAN CORPUSCULAR HEMOGLOBIN 20.8 pg (27.0-33.4); PLATELET COUNT 275 10^3/uL (150-450); RED BLOOD COUNT 3.48 10^6/uL (3.72-5.28); RED CELL DISTRIBUTION WIDTH 25.8 % (11.5-14.0); WHITE BLOOD COUNT 8.7 10^3/uL (4.0-10.5)
[2018-07-04 06:07] LABS: ALANINE AMINOTRANSFERASE 21 U/L (9-52); ALBUMIN 3.5 g/dL (3.5-5.0); ALKALINE PHOSPHATASE 177 U/L (38-126); ANION GAP 7 (5-19); ASPARTATE AMINO TRANSFERASE 36 U/L (14-36); BILIRUBIN,DIRECT 1.1 mg/dL (0.0-0.4); BILIRUBIN,TOTAL 1.3 mg/dL (0.2-1.3); BLOOD UREA NITROGEN 5 mg/dL (7-20); CALCIUM 8.7 mg/dL (8.4-10.2); CARBON DIOXIDE 36 mmol/L (22-30); CHLORIDE 94 mmol/L (98-107); GLUCOSE 127 mg/dL (75-110); POTASSIUM 4.5 mmol/L (3.6-5.0); SODIUM 136.9 mmol/L (137-145); TOTAL PROTEIN 7.8 g/dL (6.3-8.2)
[2018-07-04 06:33] LABS: MEAN CORPUSCULAR VOLUME 72 fl (80-97)
[2018-07-04 06:36] LABS: HEMOGLOBIN 7.2 g/dL (12.0-15.5)
[2018-07-04 06:39] LABS: ABSOLUTE LYMPHOCYTES# (MANUAL) 0.7 10^3/uL (0.5-4.7); ABSOLUTE MONOCYTES # (MANUAL) 0.5 10^3/uL (0.1-1.4); ABSOLUTE NEUTROPHILS# (MANUAL) 7.5 10^3/uL (1.7-8.2); BASOPHILS % (MANUAL) 0 % (0-2); EOSINOPHILS % (MANUAL) 0 % (0-6); LYMPHOCYTES % (MANUAL) 8 % (13-45); MONOCYTES % (MANUAL) 6 % (3-13); NUCLEATED RED BLOOD CELLS 4 /100 WBC (0); SEGMENTED NEUTROPHILS % (MAN) 86 % (42-78); TOTAL CELLS COUNTED 100
[2018-07-04 06:41] LABS: ANISOCYTOSIS 3+; TOXIC GRANULATION 1+; TOXIC VACUOLATION PRESENT
[2018-07-04 06:42] LABS: POIKILOCYTOSIS 3+
[2018-07-04 06:43] LABS: OVALOCYTES 1+; PLATELET COMMENT ADEQUATE; TARGET CELLS 3+; TEAR DROP CELLS SLIGHT
[2018-07-04 08:42] LABS: HEPATITIS A AB IGM Negative (Negative); HEPATITIS B CORE AB IGM Negative (Negative); HEPATITS B SURFACE ANTIGEN Negative (Negative)
[2018-07-04] MEDS: IPRATROPIUM/ALBUTEROL 0.5-2.5 MG/3 ML AMPUL NEB PRN (09:33)
[2018-07-04 10:16] LABS: ARTERIAL BLOOD BASE EXCESS 13.9 mmol/L; ARTERIAL BLOOD FIO2 5L; ARTERIAL BLOOD H2CO3 3.47 mmol/L (1.05-1.35); ARTERIAL BLOOD HCO3 44.3 mmol/L (20-24); ARTERIAL BLOOD O2 SATURATION 92.1 % (94-98); ARTERIAL BLOOD PO2 81.3 mmHg (80-100); ARTERIAL BLOOD TOTAL CO2 47.9 mmol/L (21-25)
[2018-07-04 10:19] LABS: ARTERIAL BLOOD PCO2 115.2 mmHg (35-45)
[2018-07-04] MEDS ORDERED: FOLIC ACID INJ 5 MG/1 ML 10 ML VIAL IV SCH (10:45)
[2018-07-04] MEDS: FLUCONAZOLE 100 MG TABLET PO SCH (10:48)
[2018-07-04] MEDS: DOCUSATE SODIUM 100 MG CAPSULE PO SCH ×2 (10:48→17:38)
[2018-07-04] MEDS: KETOCONAZOLE 2% SHAMPOO 120 ML BOTTLE TP SCH (10:49)
[2018-07-04] MEDS: POTASSIUM CHLORIDE 10 MEQ CAPSULE.ER PO SCH (10:49)
[2018-07-04] MEDS: CEFTRIAXONE 1 GM/D5W RTU 1 GM/50 ML RTUPB IV SCH (10:53)
[2018-07-04] MEDS: FUROSEMIDE INJ/PF 40 MG/4 ML SDV IV SCH (10:53)
[2018-07-04 10:55] LABS: HEPATITIS C VIRUS ANTIBODY <0.1 s/co ratio (0.0-0.9)
[2018-07-04] MEDS ORDERED: NORMAL SALINE 250 ML IV PRN ×2 (11:37)
[2018-07-04] MEDS ORDERED: NORMAL SALINE 1000 ML 1,000 ML IV PRN (11:39)
[2018-07-04] MEDS ORDERED: FUROSEMIDE INJ/PF 40 MG/4 ML SDV IV ONE (11:53)
[2018-07-04 14:49] LABS: ARTERIAL BLOOD BASE EXCESS 11.2 mmol/L; ARTERIAL BLOOD H2CO3 2.44 mmol/L (1.05-1.35); ARTERIAL BLOOD HCO3 39.5 mmol/L (20-24); ARTERIAL BLOOD O2 SATURATION 86.7 % (94-98); ARTERIAL BLOOD PH 7.31 (7.35-7.45); ARTERIAL BLOOD PO2 59.4 mmHg (80-100); ARTERIAL BLOOD TOTAL CO2 41.9 mmol/L (21-25)
[2018-07-04 15:17] LABS: ARTERIAL BLOOD FIO2 30%; ARTERIAL BLOOD PCO2 81.1 mmHg (35-45)
[2018-07-04] MEDS: THIAMINE HCL 100 MG TABLET PO SCH (17:38)
[2018-07-04] MEDS: NORMAL SALINE 1000 ML 1,000 ML with POTASSIUM CHLORIDE 20 MEQ, MAGNESIUM SULFATE 8 MEQ,... IV SCH ×5 (17:40)
[2018-07-04] MEDS ORDERED: BEER PO SCH (19:00)
--- NOTE | 2018-07-04 22:02 | PDOC PROGRESS REPORT ---
Subjective Progress Note for:: 07/04/18 Subjective:: 37 year old female with a history of morbid obesity, anemia, depression, tobacco, alcohol dependence and IV drug abuse. She presents with 2 weeks of lower extremity and abdominal swelling now with notable difficulty in breathing. CT abd/pelvis reveals diffuse anasarca, no other significant findings. Patient was severely obtunded this morning, would not open eyes or respond to verbal or tactile stimuli. ABG revealed acute respiratory acidosis. Etiology likely stemming from Ativan and Thorazine given the night before. These medications were discontinued, patient placed on BIPAP. Follow up ABG shows improvement of acidosis. As CO2 decreased from >110 to 80s her mental status improved, the patient was more awake and began talking to medical staff. Patient's Hgb this morning is, again, < 8.0. Plan for 2U PRBC transfusion. Anemia studies reveal iron deficiency anemia. No evidence of GI blood loss. May be the result of chronic ETOH use, possibly may need hematology consult. Reason For Visit: ANASARCA SOB IV DRUG USE Physical Exam Vital Signs: Temp Pulse Resp BP Pulse Ox 97.8 F 86 22 H 105/55 L 97 07/04/18 18:18 07/04/18 18:18 07/04/18 18:18 07/04/18 18:18 07/04/18 19:47 Pulse Oximeter Continuous Start: 07/04/18 10:32 Freq: RTQ4 Status: Active Protocol: Document 07/04/18 19:47 LDA (Rec: 07/04/18 19:47 LDA [id number]) Pulse Oximetry Assessment Oxygen Saturation (92-100) 97 Oxygen Flow Rate (L/min) 5 Oxygen Delivery Method Nasal Cannula Fraction of Inspired Oxygen (FIO2) 40 Equipment Usage Equipment in Use Continuous SpO2 Machine # 11 Intake & Output 07/03/18 07/04/18 07/05/18 06:59 06:59 06:59 Intake Total 50 1378 2075 Output Total 2950 2200 Balance -2900 -822 2075 Weight 137.9 kg 130 kg General appearance: PRESENT: morbidly obese Eye exam: PRESENT: conjunctiva pink, scleral icterus Mouth exam: PRESENT: moist, tongue midline Neck exam: PRESENT: full ROM Respiratory exam: PRESENT: clear to auscultation linda, decreased breath sounds - bilateral lower lobes Cardiovascular exam: PRESENT: RRR Pulses: PRESENT: normal radial pulses, +1 pedal pulses bilateral Vascular exam: PRESENT: pallor GI/Abdominal exam: PRESENT: soft. ABSENT: distended, tenderness Rectal exam: PRESENT: deferred Extremities exam: PRESENT: pedal edema Musculoskeletal exam: ABSENT: deformity Neurological exam: PRESENT: other - INITIAL ASSESSMENT - PATIENT IS OBTUNDED. ABSENT: alert, awake, oriented to person, oriented to place, oriented to time, oriented to situation Skin exam: PRESENT: dry, intact, pallor Results Laboratory Results: 07/04/18 04:28 07/04/18 04:28 07/02/18 07/04/18 07/04/18 22:21 04:28 04:28 WBC 8.7 RBC 3.48 L Hgb 7.2 L Hct 24.9 L MCV 72 L D MCH 20.8 L MCHC 29.0 L RDW 25.8 H Plt Count 275 Seg Neutrophils % Not Reportable Lymphocytes % Not Reportable Monocytes % Not Reportable Eosinophils % Not Reportable Basophils % Not Reportable Absolute Neutrophils Not Reportable Absolute Lymphocytes Not Reportable Absolute Monocytes Not Reportable Absolute Eosinophils Not Reportable Absolute Basophils Not Reportable Carbonic Acid HCO3/H2CO3 Ratio ABG pH ABG pCO2 ABG pO2 ABG HCO3 ABG O2 Saturation ABG Base Excess FiO2 Sodium Potassium Chloride Carbon Dioxide Anion Gap BUN Creatinine Est GFR ( Amer) Est GFR (Non-Af Amer) Glucose Calcium Magnesium 1.8 Total Bilirubin AST ALT Alkaline Phosphatase Total Protein Albumin Blood Type A NEGATIVE Antibody Screen NEGATIVE 07/04/18 07/04/18 07/04/18 04:28 10:00 14:15 WBC RBC Hgb Hct MCV MCH MCHC RDW Plt Count Seg Neutrophils % Lymphocytes % Monocytes % Eosinophils % Basophils % Absolute Neutrophils Absolute Lymphocytes Absolute Monocytes Absolute Eosinophils Absolute Basophils Carbonic Acid 3.47 H 2.44 H HCO3/H2CO3 Ratio 12:1 16:1 ABG pH 7.20 L* 7.31 L ABG pCO2 115.2 H* 81.1 H* ABG pO2 81.3 59.4 L ABG HCO3 44.3 H 39.5 H ABG O2 Saturation 92.1 L 86.7 L ABG Base Excess 13.9 11.2 FiO2 5L 30% Sodium 136.9 L Potassium 4.5 Chloride 94 L Carbon Dioxide 36 H Anion Gap 7 BUN 5 L Creatinine 0.95 Est GFR ( Amer) > 60 Est GFR (Non-Af Amer) > 60 Glucose 127 H Calcium 8.7 Magnesium Total Bilirubin 1.3 AST 36 ALT 21 Alkaline Phosphatase 177 H Total Protein 7.8 Albumin 3.5 Blood Type Antibody Screen 07/02/18 22:42 Blank Catheter Urine Culture - Final NO GROWTH 2 DAYS 07/02/18 07/02/18 07/04/18 20:40 20:40 04:28 Troponin I < 0.012 NT-Pro-B Natriuret Pep 1710 H 1250 H Impressions: Chest X-Ray 07/02/18 21:05 IMPRESSION: Moderate cardiomegaly and mild central pulmonary vascular congestion. Abdomen/Pelvis CT 07/02/18 23:19 IMPRESSION: Diffuse anasarca with no focal fluid collection or abscess identified. Fatty liver. TECHNICAL DOCUMENTATION: Quality ID # [id number]: Final reports with documentation of one or more dose reduction techniques (e.g., Automated exposure control, adjustment of the mA and/or kV according to patient size, use of iterative reconstruction technique) copyright 2011 [employer]- All Rights Reserved Status: Imported from PACS Assessment and Plan - Diagnosis (1) Hypercapnic respiratory failure Qualifiers: Chronicity: acute Qualified Code(s): J96.02 - Acute respiratory failure with hypercapnia Is this a current diagnosis for this admission?: Yes Plan: Secondary to oversedation from ativan and thorazine Ph 7.2 CO2>110 Initiated BIPAP Follow up ABG improved acidosis and hypercapnea d/c'd medications, patient now on beer TID with meals to prevent DTs (2) Anemia Qualifiers: Anemia type: unspecified type Qualified Code(s): D64.9 - Anemia, unspecified Is this a current diagnosis for this admission?: Yes Plan: Possibly secondary to liver failure Hgb only increased from 7.1-->7.6 after 1 U PRBC Plan for 2 U PRBC today no GI blood loss (3) Anasarca Is this a current diagnosis for this admission?: No Plan: Seen on CT Continue IV lasix (4) Ananya's disease Is this a current diagnosis for this admission?: No Plan: History of Ananya's disease Cortisol levels normal ACTH levels pending (5) Alcoholism Is this a current diagnosis for this admission?: Yes Plan: Patient admits to drinking 12-24 beers per day Per nursing staff, patient becomes very drowsy when given ativan Unfortunately, the hospital does not carry librium Patient may have a can of beer with meals (TID) in hopes of avoiding DTs (6) Morbid obesity with BMI of 40.0-44.9, adult Is this a current diagnosis for this admission?: No Plan: Weight management with diet - Time Time Spent with patient: 15-24 minutes Medications reviewed and adjusted accordingly: Yes Anticipated discharge: Home - Inpatient Certification Based on my medical assessment, after consideration of the patient's comorbidities, presenting symptoms, or acuity I expect that the services needed warrant INPATIENT care.: Yes I certify that my determination is in accordance with my understanding of Medicare's requirements for reasonable and necessary INPATIENT services [42 CFR 412.3e].: Yes Medical Necessity: Significant Comorbidiites Make Outpatient Treatment Too Risky
[2018-07-04] MEDS: BEER PO SCH (23:33)
[2018-07-05] MEDS: HEPARIN SOD (PORCINE) 5,000 UNIT/ML 1 ML SYRINGE SUBCUT SCH ×3 (05:09→23:54)
[2018-07-05 06:31] LABS: ALANINE AMINOTRANSFERASE 22 U/L (9-52); ALBUMIN 3.3 g/dL (3.5-5.0); ALKALINE PHOSPHATASE 163 U/L (38-126); ANION GAP 8 (5-19); ASPARTATE AMINO TRANSFERASE 41 U/L (14-36); BILIRUBIN,DIRECT 1.1 mg/dL (0.0-0.4); BILIRUBIN,TOTAL 1.3 mg/dL (0.2-1.3); BLOOD UREA NITROGEN 5 mg/dL (7-20); CALCIUM 9.2 mg/dL (8.4-10.2); CARBON DIOXIDE 38 mmol/L (22-30); CHLORIDE 92 mmol/L (98-107); GLUCOSE 114 mg/dL (75-110); POTASSIUM 4.3 mmol/L (3.6-5.0); SODIUM 138.4 mmol/L (137-145); TOTAL PROTEIN 8.1 g/dL (6.3-8.2)
[2018-07-05 07:15] LABS: HEMATOCRIT 28.5 % (36.0-47.0); HEMOGLOBIN 8.5 g/dL (12.0-15.5); MEAN CORPUSCULAR HEMOGLOBIN 21.7 pg (27.0-33.4); MEAN CORPUSCULAR HGB CONC 29.8 g/dL (32.0-36.0); MEAN CORPUSCULAR VOLUME 73 fl (80-97); PLATELET COUNT 273 10^3/uL (150-450); RED BLOOD COUNT 3.91 10^6/uL (3.72-5.28); WHITE BLOOD COUNT 7.9 10^3/uL (4.0-10.5)
[2018-07-05] MEDS: BEER PO SCH ×4 (08:09→18:41)
[2018-07-05] MEDS: IPRATROPIUM/ALBUTEROL 0.5-2.5 MG/3 ML AMPUL NEB PRN (08:41)
[2018-07-05 09:40] LABS: HEPATITIS A AB IGM Negative (Negative); HEPATITIS B CORE AB IGM Negative (Negative); HEPATITS B SURFACE ANTIGEN Negative (Negative)
[2018-07-05 09:48] LABS: HEPATITIS C VIRUS ANTIBODY <0.1 s/co ratio (0.0-0.9)
[2018-07-05] MEDS ORDERED: LACTULOSE SYRUP 20 GM/30 ML UDCUP PO SCH (10:00)
[2018-07-05] MEDS: FUROSEMIDE INJ/PF 40 MG/4 ML SDV IV SCH (10:14)
[2018-07-05] MEDS: CEFTRIAXONE 1 GM/D5W RTU 1 GM/50 ML RTUPB IV SCH (10:15)
[2018-07-05] MEDS: DOCUSATE SODIUM 100 MG CAPSULE PO SCH (10:16)
[2018-07-05] MEDS: FLUCONAZOLE 100 MG TABLET PO SCH (10:16)
[2018-07-05] MEDS: POTASSIUM CHLORIDE 10 MEQ CAPSULE.ER PO SCH (10:17)
[2018-07-05] MEDS: KETOCONAZOLE 2% SHAMPOO 120 ML BOTTLE TP SCH (10:17)
[2018-07-05] MEDS ORDERED: PHARMACY COMMUNICATION ORDER MC NR (12:00)
[2018-07-05] MEDS ORDERED: MAG HYDROX/AL HYDROX/SIMETH SUSP 30 ML UDCUP NG PRN (12:30)
--- NOTE | 2018-07-05 13:08 | RADIOLOGY REPORT (SQ) ---
EXAM DESCRIPTION: KUB/ABDOMEN (SINGLE VIEW) COMPLETED DATE/TIME: 07/05/2018 12:46 pm REASON FOR STUDY: Check Placement of NG Tube COMPARISON: None. NUMBER OF VIEWS: One view. TECHNIQUE: Supine radiographic image of the abdomen acquired. LIMITATIONS: None. FINDINGS: Nasogastric tube tip overlies the gastric fundus. Visualized bowel gas pattern is normal. IMPRESSION: Nasogastric tube in the stomach. Reading location - IP/workstation name: [email or web address]
[2018-07-05] MEDS: ACETAMINOPHEN SOLN 325 MG/10.15 ML UDCUP NG PRN (14:32)
[2018-07-05] MEDS ORDERED: FUROSEMIDE INJ/PF 40 MG/4 ML SDV IV ONE (15:30)
[2018-07-05] MEDS: NORMAL SALINE 250 ML with FUROSEMIDE 250 MG IV PRN ×2 (15:46)
[2018-07-05] MEDS ORDERED: DOCUSATE SODIUM 100 MG/10 ML UDC NG SCH (18:00)
[2018-07-05] MEDS: NORMAL SALINE 1000 ML 1,000 ML with POTASSIUM CHLORIDE 20 MEQ, MAGNESIUM SULFATE 8 MEQ,... IV SCH ×5 (18:20)
[2018-07-05] MEDS: THIAMINE HCL 100 MG TABLET NG SCH (18:41)
--- NOTE | 2018-07-05 20:37 | PDOC PROGRESS REPORT ---
Subjective Progress Note for:: 07/05/18 Subjective:: 37 year old female with a history of morbid obesity, anemia, depression, tobacco, alcohol dependence and IV drug abuse. She presents with 2 weeks of lower extremity and abdominal swelling now with notable difficulty in breathing. CT abd/pelvis reveals diffuse anasarca, no other significant findings. The patient had removed her BIPAP mask overnight. Nursing staff stated the patient refused it and her medications. She was severely obtunded again this morning, would open eyes only to tactile stimuli. Ammonia is elevated to > 60 this morning. Her liver disease coupled with ETOH withdrawal and possibly hypoactive delirium is likely what's resulting in her AMS. No benzodiazepines or pain medication administered overnight for withdrawal symptoms. These medicati ons make the patient very drowsy and difficult to arouse. Nursing staff instructed to place NGT so patient can start receiving lactulose for elevated ammonia. Additionally, she was placed back on BIPAP. Her abdomen is severely distended and tight. No pain upon palpation. STAT US Abdomen ordered to evaluate for ascites. It is more likely that this clinical presentation is due to anasarca. Will follow up with results of US but also plan to initiate lasix gtt for anasarca treatment. Upgraded to IMCU, patient is currently awaiting transfer to the 3rd floor. Reason For Visit: ANASARCA SOB IV DRUG USE Physical Exam Vital Signs: Temp Pulse Resp BP Pulse Ox 97.6 F 86 25 H 115/61 95 07/05/18 11:44 07/05/18 11:44 07/05/18 11:44 07/05/18 11:44 07/05/18 12:00 Pulse Oximeter Continuous Start: 07/04/18 10:32 Freq: RTQ4 Status: Active Protocol: Document 07/05/18 12:00 [facility] (Rec: 07/05/18 13:30 [facility] [id number]) Pulse Oximetry Assessment Oxygen Saturation (92-100) 95 Oxygen Delivery Method Bi-pap Fraction of Inspired Oxygen (FIO2) 40 Equipment Usage Equipment in Use Continuous SpO2 Machine # 11 Intake & Output 07/04/18 07/05/18 07/06/18 06:59 06:59 06:59 Intake Total 1378 2075 1375.2 Output Total 2200 2700 800 Balance -822 -625 575.2 Weight 130 kg 133.1 kg General appearance: PRESENT: morbidly obese Eye exam: PRESENT: conjunctiva pink, PERRLA, other - exopthalamus Mouth exam: PRESENT: tongue midline Teeth exam: PRESENT: poor dentation Neck exam: PRESENT: full ROM Respiratory exam: PRESENT: clear to auscultation linda, decreased breath sounds - bilateral lower lobes, symmetrical, unlabored - shallow respirations. requiring BIPAP Cardiovascular exam: PRESENT: RRR Pulses: PRESENT: normal radial pulses, normal dorsalis pedis pul Vascular exam: PRESENT: pallor GI/Abdominal exam: PRESENT: distended, firm. ABSENT: tenderness Rectal exam: PRESENT: deferred Gentrourinary exam: PRESENT: indwelling catheter Extremities exam: PRESENT: full ROM, pedal edema Musculoskeletal exam: ABSENT: deformity Neurological exam: PRESENT: altered, oriented to person. ABSENT: alert, awake, oriented to situation Psychiatric exam: ABSENT: appropriate affect Skin exam: PRESENT: dry, pallor, warm Results Laboratory Results: 07/05/18 05:48 07/05/18 05:48 07/04/18 07/05/18 07/05/18 14:15 05:48 05:48 WBC 7.9 RBC 3.91 Hgb 8.5 L Hct 28.5 L MCV 73 L MCH 21.7 L MCHC 29.8 L RDW 26.0 H Plt Count 273 Carbonic Acid 2.44 H HCO3/H2CO3 Ratio 16:1 ABG pH 7.31 L ABG pCO2 81.1 H* ABG pO2 59.4 L ABG HCO3 39.5 H ABG O2 Saturation 86.7 L ABG Base Excess 11.2 FiO2 30% Sodium 138.4 Potassium 4.3 Chloride 92 L Carbon Dioxide 38 H Anion Gap 8 BUN 5 L Creatinine 0.74 Est GFR ( Amer) > 60 Est GFR (Non-Af Amer) > 60 Glucose 114 H Calcium 9.2 Magnesium 1.8 Total Bilirubin 1.3 AST 41 H ALT 22 Alkaline Phosphatase 163 H Ammonia Total Protein 8.1 Albumin 3.3 L 07/05/18 05:48 WBC RBC Hgb Hct MCV MCH MCHC RDW Plt Count Carbonic Acid HCO3/H2CO3 Ratio ABG pH ABG pCO2 ABG pO2 ABG HCO3 ABG O2 Saturation ABG Base Excess FiO2 Sodium Potassium Chloride Carbon Dioxide Anion Gap BUN Creatinine Est GFR ( Amer) Est GFR (Non-Af Amer) Glucose Calcium Magnesium Total Bilirubin AST ALT Alkaline Phosphatase Ammonia 69.4 H Total Protein Albumin 07/02/18 22:42 Blank Catheter Urine Culture - Final NO GROWTH 2 DAYS 07/02/18 07/02/18 07/04/18 20:40 20:40 04:28 Troponin I < 0.012 NT-Pro-B Natriuret Pep 1710 H 1250 H Impressions: Chest X-Ray 07/02/18 21:05 IMPRESSION: Moderate cardiomegaly and mild central pulmonary vascular congestion. Abdomen/Pelvis CT 07/02/18 23:19 IMPRESSION: Diffuse anasarca with no focal fluid collection or abscess identified. Fatty liver. TECHNICAL DOCUMENTATION: Quality ID # [id number]: Final reports with documentation of one or more dose reduction techniques (e.g., Automated exposure control, adjustment of the mA and/or kV according to patient size, use of iterative reconstruction technique) copyright 2011 [employer]- All Rights Reserved KUB X-Ray 07/05/18 11:53 IMPRESSION: Nasogastric tube in the stomach. Status: Imported from PACS Assessment and Plan - Diagnosis (1) Hypercapnic respiratory failure Qualifiers: Chronicity: acute Qualified Code(s): J96.02 - Acute respiratory failure with hypercapnia Is this a current diagnosis for this admission?: Yes Plan: Multifactoral Secondary to AMS, ETOH withdrawal, hypoactive delirium ABG shows hypercapnic respiratory acidosis Restarted BIPAP SPO2 remains above 90% no plan for intubation at this time Avoid benzodiazepines due to profound lethargy, currently treating ETOH withdrawal with Beer TID (2) Anemia Qualifiers: Anemia type: unspecified type Qualified Code(s): D64.9 - Anemia, unspecified Is this a current diagnosis for this admission?: Yes Plan: Improving Likely due to liver disease Hgb increased 7.1-->7.6-->8.2 s/p 3 U PRBC no GI blood loss, does not need EGD/colonoscopy at this time Transfuse for Hgb < 8.0 (3) Anasarca Is this a current diagnosis for this admission?: No Plan: Seen on CT Abdomen very distended and tight, hypoactive bowel sounds STAT US Abdomen to evaluate for ascites Greater likelihood that abdomen is secondary to anasarca Initiate lasix gtt D/c IVF and daily banana bag (4) Ananya's disease Is this a current diagnosis for this admission?: No Plan: History of Ananya's disease Cortisol levels normal ACTH levels WNL (5) Alcoholism Is this a current diagnosis for this admission?: Yes Plan: Patient admits to drinking 12-24 beers per day Per nursing staff, patient becomes very drowsy when given ativan Unfortunately, the hospital does not carry librium Patient may have a can of beer (TID) via NG in hopes of avoiding DTs (6) Morbid obesity with BMI of 40.0-44.9, adult Is this a current diagnosis for this admission?: No Plan: Weight management with diet - Time Time Spent with patient: 25-34 minutes Medications reviewed and adjusted accordingly: Yes - Inpatient Certification Based on my medical assessment, after consideration of the patient's comorbidities, presenting symptoms, or acuity I expect that the services needed warrant INPATIENT care.: Yes I certify that my determination is in accordance with my understanding of Medicare's requirements for reasonable and necessary INPATIENT services [42 CFR 412.3e].: Yes Medical Necessity: Need Close Monitoring Due to Risk of Patient Decompensation, Risk of Complication if Not Cared For in Hospital - Plan Summary Plan Summary: RESUME BIPAP. PLACE NGT. ADMINISTER LACTULOSE. D/C IVF. START LASIX GTT. US ABDOMEN.
[2018-07-05] MEDS ORDERED: GLUCAGON,HUMAN RECOMB 1 MG INJ SUBCUT PRN (20:59)
[2018-07-05] MEDS ORDERED: DEXTROSE 50%-WATER 25 GM/50 ML DISP.SYRIN IV PRN ×2 (20:59)
[2018-07-05] MEDS ORDERED: DEXTROSE 40% GEL 15 GM TUBE PO PRN ×2 (20:59)
[2018-07-05] MEDS: ALBUMIN HUMAN 12.5 GM/50 ML RTUINJ IV SCH ×2 (21:13→23:17)
--- NOTE | 2018-07-05 21:39 | RADIOLOGY REPORT (SQ) ---
EXAM DESCRIPTION: US ABDOMEN LIMITED COMPLETED DATE/TME: 07/05/2018 11:44 CLINICAL HISTORY: 37 years, Female, abdominal distention COMPARISON: None. EXAM DESCRIPTION: CLINICAL HISTORY: abdominal distention COMPARISON: None. FINDINGS: No significant fluid is seen in the four abdominal quadrants or midline at the pelvis. Limited exam is performed. IMPRESSION: No significant fluid is identified on Limited protocol.
[2018-07-05 22:11] LABS: ALANINE AMINOTRANSFERASE 25 U/L (9-52); ALBUMIN 3.5 g/dL (3.5-5.0); ALKALINE PHOSPHATASE 169 U/L (38-126); ASPARTATE AMINO TRANSFERASE 50 U/L (14-36); BILIRUBIN,DIRECT 0.8 mg/dL (0.0-0.4); BILIRUBIN,TOTAL 1.2 mg/dL (0.2-1.3); BLOOD UREA NITROGEN 5 mg/dL (7-20); CALCIUM 9.1 mg/dL (8.4-10.2); CHLORIDE 87 mmol/L (98-107); GLUCOSE 88 mg/dL (75-110); POTASSIUM 3.9 mmol/L (3.6-5.0); SODIUM 137.8 mmol/L (137-145); TOTAL PROTEIN 8.3 g/dL (6.3-8.2)
[2018-07-05 22:23] LABS: ANION GAP 11 (5-19)
[2018-07-05 22:28] LABS: CARBON DIOXIDE 40 mmol/L (22-30)
[2018-07-05] MEDS: LACTULOSE SYRUP 20 GM/30 ML UDCUP NG SCH (23:57)
[2018-07-05] MEDS: DOCUSATE SODIUM 100 MG/10 ML UDC NG SCH (23:58)
[2018-07-06] MEDS: ALBUMIN HUMAN 12.5 GM/50 ML RTUINJ IV SCH ×2 (01:13→02:32)
[2018-07-06 03:23] LABS: BLOOD UREA NITROGEN 6 mg/dL (7-20); CALCIUM 9.4 mg/dL (8.4-10.2); CHLORIDE 84 mmol/L (98-107); GLUCOSE 91 mg/dL (75-110); POTASSIUM 3.7 mmol/L (3.6-5.0); SODIUM 138.3 mmol/L (137-145)
[2018-07-06 03:36] LABS: ANION GAP 13 (5-19)
[2018-07-06 03:40] LABS: CARBON DIOXIDE 41 mmol/L (22-30)
[2018-07-06] MEDS: HEPARIN SOD (PORCINE) 5,000 UNIT/ML 1 ML SYRINGE SUBCUT SCH ×4 (05:50→22:11)
[2018-07-06] MEDS: BEER PO SCH ×3 (08:46→17:18)
[2018-07-06] MEDS: LACTULOSE SYRUP 20 GM/30 ML UDCUP NG SCH ×2 (09:35→22:08)
[2018-07-06] MEDS: DOCUSATE SODIUM 100 MG/10 ML UDC NG SCH ×2 (09:36→17:18)
[2018-07-06] MEDS: FOLIC ACID 1 MG TABLET NG SCH (09:37)
[2018-07-06] MEDS: POTASSIUM CHLORIDE 20 MEQ/15 ML UDCUP NG SCH (09:38)
[2018-07-06] MEDS: KETOCONAZOLE 2% SHAMPOO 120 ML BOTTLE TP SCH (09:41)
[2018-07-06] MEDS ORDERED: FLUCONAZOLE 100 MG TABLET NG SCH (10:00)
[2018-07-06 10:22] LABS: HEMATOCRIT 29.6 % (36.0-47.0); HEMOGLOBIN 9.1 g/dL (12.0-15.5); MEAN CORPUSCULAR HEMOGLOBIN 22.1 pg (27.0-33.4); MEAN CORPUSCULAR HGB CONC 30.6 g/dL (32.0-36.0); MEAN CORPUSCULAR VOLUME 72 fl (80-97); RED BLOOD COUNT 4.11 10^6/uL (3.72-5.28); RED CELL DISTRIBUTION WIDTH 27.7 % (11.5-14.0); WHITE BLOOD COUNT 5.4 10^3/uL (4.0-10.5)
--- NOTE | 2018-07-06 10:24 | PDOC PROGRESS REPORT ---
Subjective Progress Note for:: 07/06/18 Subjective:: 37 year old female with a history of morbid obesity, anemia, depression, tobacco, alcohol dependence and IV drug abuse. She presents with 2 weeks of lower extremity and abdominal swelling now with notable difficulty in breathing. CT abd/pelvis reveals diffuse anasarca, no other significant findings. The patient appears much more awake this morning. She is off BiPAP, on nasal cannula. She is alert and oriented x3. Able to answer all questions appropriately. No evidence of ETOH withdrawal - no tremors, agitation, hallucinations. The patient tells me that she drinks 8-9 "FOUR JOS[employer]IGUEL" alcoholic drinks per day. Remains on lasix gtt at 10mg/hr. Her abdomen is still significantly distended and tight, but has improved slightly when compared to yesterday. No pain upon palpation. US Abdomen done yesterday shows no ascites. Her clinical presentation is due to anasarca. The patient states she is hungry. Will attempt PO diet today. Discussed the importance of taking all of her medications, particularly the lactulose. She agreed. Instructed patient to take all medications and we will remove her NG later today. Reason For Visit: ANASARCA SOB IV DRUG USE Physical Exam Vital Signs: Temp Pulse Resp BP Pulse Ox 98.0 F 88 18 129/86 H 98 07/06/18 07:41 07/06/18 09:15 07/06/18 09:15 07/06/18 07:41 07/06/18 09:15 Pulse Oximeter Continuous Start: 07/04/18 10:32 Freq: RTQ4 Status: Active Protocol: Document 07/06/18 09:15 [facility] (Rec: 07/06/18 09:19 DBE [id number]) Pulse Oximetry Assessment Oxygen Saturation (92-100) 98 Oxygen Flow Rate (L/min) 5 Oxygen Delivery Method Nasal Cannula Fraction of Inspired Oxygen (FIO2) 40 Equipment Usage Equipment in Use Continuous SpO2 Machine # 11 Intake & Output 07/05/18 07/06/18 07/07/18 06:59 06:59 06:59 Intake Total 9935 4355.2 Output Total 4542 7593 Balance -610 -1945.8 Weight 133.1 kg 134 kg General appearance: PRESENT: morbidly obese Head exam: PRESENT: atraumatic Eye exam: PRESENT: PERRLA, scleral icterus, other - exopthalamus Mouth exam: PRESENT: moist, tongue midline Neck exam: PRESENT: full ROM Respiratory exam: PRESENT: clear to auscultation linda, symmetrical, unlabored Cardiovascular exam: PRESENT: RRR Pulses: PRESENT: normal radial pulses, normal dorsalis pedis pul Vascular exam: PRESENT: pallor GI/Abdominal exam: PRESENT: distended, firm, hypoactive bowel sounds. ABSENT: tenderness Rectal exam: PRESENT: deferred Gentrourinary exam: PRESENT: indwelling catheter Extremities exam: PRESENT: pedal edema, +1 edema. ABSENT: calf tenderness Musculoskeletal exam: PRESENT: full ROM, normal inspection Neurological exam: PRESENT: alert, awake, oriented to person, oriented to place, oriented to time, oriented to situation Psychiatric exam: PRESENT: appropriate affect Skin exam: PRESENT: dry, intact, normal color Results Laboratory Results: 07/05/18 07/06/18 21:00 02:52 Sodium 137.8 138.3 Potassium 3.9 3.7 Chloride 87 L 84 L Carbon Dioxide 40 H* 41 H* Anion Gap 11 13 BUN 5 L 6 L Creatinine 0.73 0.70 Est GFR ( Amer) > 60 > 60 Est GFR (Non-Af Amer) > 60 > 60 Glucose 88 91 Calcium 9.1 9.4 Total Bilirubin 1.2 AST 50 H ALT 25 Alkaline Phosphatase 169 H Total Protein 8.3 H Albumin 3.5 07/02/18 07/02/18 07/04/18 20:40 20:40 04:28 Troponin I < 0.012 NT-Pro-B Natriuret Pep 1710 H 1250 H Impressions: Chest X-Ray 07/02/18 21:05 IMPRESSION: Moderate cardiomegaly and mild central pulmonary vascular congestion. Abdomen/Pelvis CT 07/02/18 23:19 IMPRESSION: Diffuse anasarca with no focal fluid collection or abscess identified. Fatty liver. TECHNICAL DOCUMENTATION: Quality ID # [id number]: Final reports with documentation of one or more dose reduction techniques (e.g., Automated exposure control, adjustment of the mA and/or kV according to patient size, use of iterative reconstruction technique) copyright 2011 [employer]- All Rights Reserved Abdomen Ultrasound 07/05/18 11:44 IMPRESSION: No significant fluid is identified on Limited protocol. KUB X-Ray 07/05/18 11:53 IMPRESSION: Nasogastric tube in the stomach. Status: Imported from PACS Assessment and Plan - Diagnosis (1) Hypercapnic respiratory failure Qualifiers: Chronicity: acute Qualified Code(s): J96.02 - Acute respiratory failure with hypercapnia Is this a current diagnosis for this admission?: Yes Plan: Improving Secondary to AMS, ETOH withdrawal, hypoactive delirium Initial ABG shows hypercapnic respiratory acidosis Restarted BIPAP yesterday, now tolerating nasal cannula SPO2 remains above 90% no plan for intubation at this time Avoid benzodiazepines due to profound lethargy, currently treating ETOH withdrawal with Beer TID (2) Anemia Qualifiers: Anemia type: unspecified type Qualified Code(s): D64.9 - Anemia, unspecified Is this a current diagnosis for this admission?: Yes Plan: Improving Likely due to liver disease Hgb increased 7.1-->7.6-->8.2 s/p 3 U PRBC no GI blood loss, does not need EGD/colonoscopy at this time Transfuse for Hgb < 8.0 (3) Anasarca Is this a current diagnosis for this admission?: No Plan: Seen on CT Abdomen very distended and tight, hypoactive bowel sounds US Abdomen negative for ascites Continue lasix gtt 10mg/hr Strict I&O D/c IVF and daily banana bag (4) Ananya's disease Is this a current diagnosis for this admission?: No Plan: History of Marissa's disease Cortisol levels normal ACTH levels WNL (5) Alcoholism Is this a current diagnosis for this admission?: Yes Plan: Patient admits to drinking 8-9 [employer] LOKOs per day (23.5 oz can 12% alcohol) Per nursing staff, patient becomes very drowsy when given ativan Unfortunately, the hospital does not carry librium Patient may have a can of beer (TID) via NG in hopes of avoiding DTs (6) Morbid obesity with BMI of 40.0-44.9, adult Is this a current diagnosis for this admission?: No Plan: Weight management with diet - Time Time Spent with patient: 15-24 minutes Medications reviewed and adjusted accordingly: Yes Anticipated discharge: Home - Inpatient Certification Based on my medical assessment, after consideration of the patient's comorbidities, presenting symptoms, or acuity I expect that the services needed warrant INPATIENT care.: Yes I certify that my determination is in accordance with my understanding of Medicare's requirements for reasonable and necessary INPATIENT services [42 CFR 412.3e].: Yes Medical Necessity: Need Close Monitoring Due to Risk of Patient Decompensation, Risk of Complication if Not Cared For in Hospital
[2018-07-06 10:40] LABS: PLATELET COUNT 246 10^3/uL (150-450)
[2018-07-06 10:46] LABS: BLOOD UREA NITROGEN 6 mg/dL (7-20); CALCIUM 9.3 mg/dL (8.4-10.2); CHLORIDE 81 mmol/L (98-107); GLUCOSE 133 mg/dL (75-110); SODIUM 138.6 mmol/L (137-145)
[2018-07-06] MEDS: ACETAMINOPHEN SOLN 325 MG/10.15 ML UDCUP NG PRN ×2 (10:57→15:04)
[2018-07-06 11:02] LABS: ANION GAP 16 (5-19)
[2018-07-06 11:04] LABS: CARBON DIOXIDE 42 mmol/L (22-30)
[2018-07-06 15:56] LABS: BLOOD UREA NITROGEN 6 mg/dL (7-20); CALCIUM 9.4 mg/dL (8.4-10.2); CHLORIDE 78 mmol/L (98-107); GLUCOSE 108 mg/dL (75-110); POTASSIUM 3.6 mmol/L (3.6-5.0); SODIUM 136.5 mmol/L (137-145)
[2018-07-06 16:17] LABS: ANION GAP 13 (5-19)
[2018-07-06 16:20] LABS: CARBON DIOXIDE 46 mmol/L (22-30)
[2018-07-06] MEDS: NORMAL SALINE 250 ML with FUROSEMIDE 250 MG IV PRN ×2 (17:03)
[2018-07-06] MEDS: THIAMINE HCL 100 MG TABLET NG SCH (17:18)
[2018-07-06 22:01] LABS: APPEARANCE,URINE CLEAR; BILIRUBIN,URINE NEGATIVE (NEGATIVE); COLOR,URINE STRAW; GLUCOSE, URINE NEGATIVE (NEGATIVE); KETONES,URINE NEGATIVE (NEGATIVE); LEUKOCYTE ESTERASE,URINE NEGATIVE (NEGATIVE); NITRITE,URINE NEGATIVE (NEGATIVE); PROTEIN,URINE NEGATIVE (NEGATIVE); URINE SPECIFIC GRAVITY 1.004; UROBILINOGEN,URINE NEGATIVE mg/dL (<2.0)
[2018-07-06 22:13] LABS: BLOOD UREA NITROGEN 7 mg/dL (7-20); CHLORIDE 78 mmol/L (98-107); GLUCOSE 102 mg/dL (75-110); POTASSIUM 3.3 mmol/L (3.6-5.0); SODIUM 137.3 mmol/L (137-145)
[2018-07-06 22:29] LABS: ANION GAP 11 (5-19)
[2018-07-06 22:31] LABS: CARBON DIOXIDE 48 mmol/L (22-30)
[2018-07-06 23:53] LABS: ARTERIAL BLOOD BASE EXCESS 25.2 mmol/L; ARTERIAL BLOOD H2CO3 2.26 mmol/L (1.05-1.35); ARTERIAL BLOOD HCO3 52.8 mmol/L (20-24); ARTERIAL BLOOD O2 SATURATION 94.5 % (94-98); ARTERIAL BLOOD PH 7.47 (7.35-7.45); ARTERIAL BLOOD PO2 72.4 mmHg (80-100); ARTERIAL BLOOD TOTAL CO2 55.1 mmol/L (21-25)
[2018-07-06 23:55] LABS: ARTERIAL BLOOD FIO2 36%
[2018-07-06 23:56] LABS: ARTERIAL BLOOD PCO2 75.1 mmHg (35-45)
[2018-07-07] MEDS ORDERED: POTASSI CL 20 MEQ/50 ML RIDER 20 MEQ/50 ML RTUPB IV ONE ×2 (04:32→09:30)
[2018-07-07 04:53] LABS: BLOOD UREA NITROGEN 7 mg/dL (7-20); CALCIUM 8.9 mg/dL (8.4-10.2); CHLORIDE 77 mmol/L (98-107); GLUCOSE 99 mg/dL (75-110); POTASSIUM 3.1 mmol/L (3.6-5.0); SODIUM 137.5 mmol/L (137-145)
[2018-07-07] MEDS: HEPARIN SOD (PORCINE) 5,000 UNIT/ML 1 ML SYRINGE SUBCUT SCH ×4 (05:12→21:30)
[2018-07-07 05:18] LABS: ANION GAP 11 (5-19)
[2018-07-07 05:21] LABS: CARBON DIOXIDE 50 mmol/L (22-30)
[2018-07-07] MEDS: MAGNESIUM SULFATE 1 GM/D5W 100 ML IV SCH ×2 (05:50→08:23)
[2018-07-07] MEDS ORDERED: POTASSI CL 20 MEQ/50 ML RIDER 0 MEQ/0 ML RTUPB IV ONE (07:33)
[2018-07-07] MEDS: BEER PO SCH ×3 (08:31→17:37)
[2018-07-07] MEDS: FOLIC ACID 1 MG TABLET NG SCH (09:44)
[2018-07-07] MEDS: LACTULOSE SYRUP 20 GM/30 ML UDCUP NG SCH ×2 (09:44→22:03)
[2018-07-07] MEDS: DOCUSATE SODIUM 100 MG/10 ML UDC NG SCH ×2 (09:45→17:31)
[2018-07-07] MEDS: POTASSIUM CHLORIDE 20 MEQ/15 ML UDCUP NG SCH (09:45)
[2018-07-07] MEDS ORDERED: MAGNESIUM SULFATE 4 GM/100 ML RTUPB IV ONE (10:00)
[2018-07-07] MEDS: ACETAMINOPHEN SOLN 325 MG/10.15 ML UDCUP NG PRN (10:44)
[2018-07-07 10:54] LABS: BLOOD UREA NITROGEN 7 mg/dL (7-20); CALCIUM 9.1 mg/dL (8.4-10.2); CHLORIDE 74 mmol/L (98-107); GLUCOSE 161 mg/dL (75-110); POTASSIUM 3.1 mmol/L (3.6-5.0); SODIUM 135.6 mmol/L (137-145)
[2018-07-07 11:06] LABS: ANION GAP 14 (5-19)
[2018-07-07 11:07] LABS: CARBON DIOXIDE 48 mmol/L (22-30)
[2018-07-07] MEDS ORDERED: KETOCONAZOLE 2% SHAMPOO 120 ML BOTTLE TP PRN (11:43)
[2018-07-07] MEDS: KETOCONAZOLE 2% SHAMPOO 120 ML BOTTLE TP SCH (11:44)
[2018-07-07] MEDS ORDERED: POTASSIUM CHLORIDE 20 MEQ/50 ML RTU IV ONE (13:00)
--- NOTE | 2018-07-07 13:16 | PDOC PROGRESS REPORT ---
Subjective Progress Note for:: 07/07/18 Subjective:: 37 year old female with a history of morbid obesity, anemia, depression, tobacco, alcohol dependence and IV drug abuse. She presents with 2 weeks of lower extremity and abdominal swelling now with notable difficulty in breathing. CT abd/pelvis reveals diffuse anasarca, no other significant findings. The patient is alert and oriented x 3. She is off BiPAP, on nasal cannula. Able to answer all questions appropriately. No evidence of ETOH withdrawal - no tremors, agitation, hallucinations. Remains on lasix gtt at 10mg/hr. Her abdomen is still distended and tight, but less so when compared to the last 48hrs. Nursing staff report labia edema as well. No pain upon palpation. US negative for ascites, her presentation is all due to anasarca. The patient is tolerating her full liquid diet, she states she is hungry, will advance diet today. Reason For Visit: ANASARCA SOB IV DRUG USE Physical Exam Vital Signs: Temp Pulse Resp BP Pulse Ox 99.7 F 90 20 121/65 99 07/07/18 11:17 07/07/18 11:17 07/07/18 11:17 07/07/18 11:17 07/07/18 12:55 Pulse Oximeter Continuous Start: 07/04/18 10:32 Freq: RTQ4 Status: Active Protocol: Document 07/07/18 12:55 DBE (Rec: 07/07/18 12:55 DBE [id number]) Pulse Oximetry Assessment Oxygen Saturation (92-100) 99 Oxygen Flow Rate (L/min) 6 Oxygen Delivery Method Nasal Cannula Fraction of Inspired Oxygen (FIO2) 44 Equipment Usage Equipment in Use Continuous SpO2 Machine # 11 Intake & Output 07/06/18 07/07/18 07/08/18 06:59 06:59 06:59 Intake Total 2575.2 1348 505 Output Total 9075 4320 2300 Balance -5374.8 -4252 -1795 Weight 134 kg 126.3 kg General appearance: PRESENT: morbidly obese Head exam: PRESENT: atraumatic Eye exam: PRESENT: conjunctiva pink, PERRLA Mouth exam: PRESENT: moist, tongue midline Neck exam: PRESENT: full ROM Respiratory exam: PRESENT: clear to auscultation linda, decreased breath sounds - Bilateral lower bases. Likely due to body habitus, symmetrical, unlabored Cardiovascular exam: PRESENT: RRR Pulses: PRESENT: normal radial pulses, normal dorsalis pedis pul Vascular exam: PRESENT: pallor GI/Abdominal exam: PRESENT: distended, firm, hypoactive bowel sounds, other - Rotund. Obese. ABSENT: tenderness Rectal exam: PRESENT: deferred Gentrourinary exam: PRESENT: indwelling catheter Extremities exam: PRESENT: full ROM, pedal edema - Trace edema Musculoskeletal exam: PRESENT: ambulatory - Out of bed to recliner and bathroom with assistance, full ROM, normal inspection. ABSENT: deformity Neurological exam: PRESENT: alert, awake, oriented to person, oriented to place, oriented to time, oriented to situation Psychiatric exam: PRESENT: appropriate affect Skin exam: PRESENT: dry, intact, normal color Results Laboratory Results: 07/06/18 10:00 07/07/18 09:58 07/06/18 07/06/18 07/06/18 15:15 21:30 21:48 Carbonic Acid HCO3/H2CO3 Ratio ABG pH ABG pCO2 ABG pO2 ABG HCO3 ABG O2 Saturation ABG Base Excess FiO2 Sodium 136.5 L 137.3 Potassium 3.6 3.3 L Chloride 78 L 78 L Carbon Dioxide 46 H* 48 H* Anion Gap 13 11 BUN 6 L 7 Creatinine 0.79 0.80 Est GFR ( Amer) > 60 > 60 Est GFR (Non-Af Amer) > 60 > 60 Glucose 108 102 Calcium 9.4 9.0 Magnesium Ammonia Urine Color STRAW Urine Appearance CLEAR Urine pH 7.0 Ur Specific [place] 1.004 Urine Protein NEGATIVE Urine Glucose (UA) NEGATIVE Urine Ketones NEGATIVE Urine Blood MODERATE H Urine Nitrite NEGATIVE Ur Leukocyte Esterase NEGATIVE Urine WBC (Auto) 0 Urine RBC (Auto) 2 07/06/18 07/06/18 07/07/18 23:12 23:43 04:26 Carbonic Acid Cancelled 2.26 H HCO3/H2CO3 Ratio Cancelled 23:1 ABG pH Cancelled 7.47 H ABG pCO2 Cancelled 75.1 H* ABG pO2 Cancelled 72.4 L ABG HCO3 Cancelled 52.8 H ABG O2 Saturation Cancelled 94.5 ABG Base Excess Cancelled 25.2 FiO2 Cancelled 36% Sodium Potassium Chloride Carbon Dioxide Anion Gap BUN Creatinine Est GFR ( Amer) Est GFR (Non-Af Amer) Glucose Calcium Magnesium Ammonia 22.6 Urine Color Urine Appearance Urine pH Ur Specific [place] Urine Protein Urine Glucose (UA) Urine Ketones Urine Blood Urine Nitrite Ur Leukocyte Esterase Urine WBC (Auto) Urine RBC (Auto) 07/07/18 07/07/18 04:26 09:58 Carbonic Acid HCO3/H2CO3 Ratio ABG pH ABG pCO2 ABG pO2 ABG HCO3 ABG O2 Saturation ABG Base Excess FiO2 Sodium 137.5 135.6 L Potassium 3.1 L 3.1 L Chloride 77 L 74 L Carbon Dioxide 50 H* 48 H* Anion Gap 11 14 BUN 7 7 Creatinine 0.75 0.82 Est GFR ( Amer) > 60 > 60 Est GFR (Non-Af Amer) > 60 > 60 Glucose 99 161 H Calcium 8.9 9.1 Magnesium 1.2 L* 1.5 L Ammonia Urine Color Urine Appearance Urine pH Ur Specific [place] Urine Protein Urine Glucose (UA) Urine Ketones Urine Blood Urine Nitrite Ur Leukocyte Esterase Urine WBC (Auto) Urine RBC (Auto) 07/02/18 07/02/18 07/04/18 20:40 20:40 04:28 Troponin I < 0.012 NT-Pro-B Natriuret Pep 1710 H 1250 H Impressions: Chest X-Ray 07/02/18 21:05 IMPRESSION: Moderate cardiomegaly and mild central pulmonary vascular congestion. Abdomen/Pelvis CT 07/02/18 23:19 IMPRESSION: Diffuse anasarca with no focal fluid collection or abscess identified. Fatty liver. TECHNICAL DOCUMENTATION: Quality ID # [id number]: Final reports with documentation of one or more dose reduction techniques (e.g., Automated exposure control, adjustment of the mA and/or kV according to patient size, use of iterative reconstruction technique) copyright 2011 [employer] All Rights Reserved Abdomen Ultrasound 07/05/18 11:44 IMPRESSION: No significant fluid is identified on Limited protocol. KUB X-Ray 07/05/18 11:53 IMPRESSION: Nasogastric tube in the stomach. Status: Imported from PACS Assessment and Plan - Diagnosis (1) Hypercapnic respiratory failure Qualifiers: Chronicity: acute Qualified Code(s): J96.02 - Acute respiratory failure with hypercapnia Is this a current diagnosis for this admission?: Yes Plan: Improving Secondary to AMS, ETOH withdrawal, hypoactive delirium Initial ABG shows hypercapnic respiratory acidosis Tolerating nasal cannula, wean as tolerated SPO2 remains above 90% Avoid benzodiazepines due to profound lethargy, currently treating ETOH withdrawal with Beer TID (2) Anemia Qualifiers: Anemia type: unspecified type Qualified Code(s): D64.9 - Anemia, unsp ecified Is this a current diagnosis for this admission?: Yes Plan: Improving Likely due to liver disease Hgb increased 7.1-->7.6-->8.2-->9.1 Patient is s/p 3 U PRBC no GI blood loss, does not need EGD/colonoscopy at this time Transfuse for Hgb < 8.0 (3) Anasarca Is this a current diagnosis for this admission?: No Plan: Seen on CT Abdomen very distended and tight, hypoactive bowel sounds US Abdomen negative for ascites Continue lasix gtt 10mg/hr Strict I&O 1500mL fluid restriction Attempt to limit IV medications (electrolyte replacement), use p.o. alternatives for possible (4) Ananya's disease Is this a current diagnosis for this admission?: No Plan: History of [place]'s disease Cortisol levels normal ACTH levels WNL (5) Alcoholism Is this a current diagnosis for this admission?: Yes Plan: Patient admits to drinking 8-9 FOUR LOKOs per day (23.5 oz can 12% alcohol) Per nursing staff, patient becomes very drowsy when given ativan Unfortunately, the hospital does not carry librium Patient may have a can of beer (TID) via NG in hopes of avoiding DTs P.o. folate and thiamine (6) Morbid obesity with BMI of 40.0-44.9, adult Is this a current diagnosis for this admission?: No Plan: Weight management with diet - Time Time Spent with patient: 15-24 minutes Medications reviewed and adjusted accordingly: Yes Anticipated discharge: Home - Inpatient Certification Based on my medical assessment, after consideration of the patient's comorb idities, presenting symptoms, or acuity I expect that the services needed warrant INPATIENT care.: Yes I certify that my determination is in accordance with my understanding of Medicare's requirements for reasonable and necessary INPATIENT services [42 CFR 412.3e].: Yes Medical Necessity: Risk of Complication if Not Cared For in Hospital
[2018-07-07] MEDS ORDERED: POTASSIUM CHLORIDE 10 MEQ CAPSULE.ER PO ONE (14:00)
[2018-07-07 17:00] LABS: BLOOD UREA NITROGEN 8 mg/dL (7-20); CALCIUM 8.8 mg/dL (8.4-10.2); CHLORIDE 76 mmol/L (98-107); GLUCOSE 99 mg/dL (75-110); POTASSIUM 3.9 mmol/L (3.6-5.0); SODIUM 135.7 mmol/L (137-145)
[2018-07-07 17:07] LABS: ANION GAP 9 (5-19)
[2018-07-07 17:09] LABS: CARBON DIOXIDE 51 mmol/L (22-30)
[2018-07-07] MEDS: THIAMINE HCL 100 MG TABLET NG SCH (17:36)
[2018-07-07] MEDS: NORMAL SALINE 250 ML with FUROSEMIDE 250 MG IV PRN ×2 (17:39)
[2018-07-07 23:20] LABS: BLOOD UREA NITROGEN 11 mg/dL (7-20); CALCIUM 8.9 mg/dL (8.4-10.2); CHLORIDE 74 mmol/L (98-107); GLUCOSE 108 mg/dL (75-110); POTASSIUM 3.6 mmol/L (3.6-5.0); SODIUM 134.9 mmol/L (137-145)
[2018-07-07 23:55] LABS: ANION GAP 10 (5-19)
[2018-07-07 23:56] LABS: CARBON DIOXIDE 51 mmol/L (22-30)
[2018-07-08] MEDS: ACETAMINOPHEN SOLN 325 MG/10.15 ML UDCUP NG PRN ×2 (03:16→08:43)
[2018-07-08] MEDS: HEPARIN SOD (PORCINE) 5,000 UNIT/ML 1 ML SYRINGE SUBCUT SCH ×3 (05:25→21:30)
[2018-07-08 05:45] LABS: HEMATOCRIT 30.6 % (36.0-47.0); HEMOGLOBIN 9.3 g/dL (12.0-15.5); MEAN CORPUSCULAR HEMOGLOBIN 22.3 pg (27.0-33.4); MEAN CORPUSCULAR HGB CONC 30.3 g/dL (32.0-36.0); MEAN CORPUSCULAR VOLUME 74 fl (80-97); PLATELET COUNT 244 10^3/uL (150-450); RED BLOOD COUNT 4.15 10^6/uL (3.72-5.28); RED CELL DISTRIBUTION WIDTH 28.7 % (11.5-14.0); WHITE BLOOD COUNT 4.8 10^3/uL (4.0-10.5)
[2018-07-08 06:05] LABS: BLOOD UREA NITROGEN 12 mg/dL (7-20); CALCIUM 8.8 mg/dL (8.4-10.2); CHLORIDE 75 mmol/L (98-107); GLUCOSE 96 mg/dL (75-110); POTASSIUM 3.6 mmol/L (3.6-5.0); SODIUM 135.1 mmol/L (137-145)
[2018-07-08 06:18] LABS: ANION GAP 11 (5-19)
[2018-07-08 06:19] LABS: CARBON DIOXIDE 49 mmol/L (22-30)
[2018-07-08] MEDS: BEER PO SCH ×3 (08:06→18:22)
[2018-07-08] MEDS: LACTULOSE SYRUP 20 GM/30 ML UDCUP NG SCH ×3 (10:54→21:47)
[2018-07-08] MEDS: POTASSIUM CHLORIDE 20 MEQ/15 ML UDCUP NG SCH (10:54)
[2018-07-08] MEDS: FOLIC ACID 1 MG TABLET NG SCH (10:54)
[2018-07-08] MEDS: DOCUSATE SODIUM 100 MG/10 ML UDC NG SCH ×2 (10:55→18:20)
--- NOTE | 2018-07-08 10:59 | Operative Report ---
Nonrecallable Operative Report DATE OF SURGERY: 07/08/18 PREOPERATIVE DIAGNOSIS: right axilliary abscess POSTOPERATIVE DIAGNOSIS: right axillary abscess OPERATION: incision and drainage of right axillary abscess SURGEON: LIVIER MEDEIROS ANESTHESIA: Local TISSUE REMOVED OR ALTERED: none COMPLICATIONS: none ESTIMATED BLOOD LOSS: 2cc INTRAOPERATIVE FINDINGS: small abscess cavity. packed with iodoform gauze. PROCEDURE: After appropriate timeout the right axilla was prepped and draped in usual sterile fashion. 1% lidocaine plain the small abscess in the right axilla was anesthetized. Using a 15 blade a small incision less than 1 cm was made directly over the abscess after anesthesia took effect. Incision was carried down through the skin and subcutaneous tissue into the subcutaneous fat with the 15 blade. The abscess cavity was spread with a Terri clamp. And a small amount of pus le ss than 1 cc exuded from the wound. Wound was then packed with a iodoform strip gauze. Nurses are to be instructed to change the packing twice a day. Patient tolerated procedure well.
[2018-07-08 11:46] LABS: BLOOD UREA NITROGEN 11 mg/dL (7-20); CHLORIDE 74 mmol/L (98-107); GLUCOSE 101 mg/dL (75-110); POTASSIUM 3.5 mmol/L (3.6-5.0); SODIUM 135.5 mmol/L (137-145)
[2018-07-08 11:58] LABS: ANION GAP 12 (5-19)
[2018-07-08 11:59] LABS: CARBON DIOXIDE 50 mmol/L (22-30)
[2018-07-08] MEDS: DIPHENHYDRAMINE HCL 50 MG/ML VIAL IV PRN ×2 (13:07→21:31)
[2018-07-08 17:19] LABS: BLOOD UREA NITROGEN 15 mg/dL (7-20); CALCIUM 9.1 mg/dL (8.4-10.2); CHLORIDE 75 mmol/L (98-107); GLUCOSE 128 mg/dL (75-110); POTASSIUM 3.5 mmol/L (3.6-5.0); SODIUM 135.7 mmol/L (137-145)
[2018-07-08 17:49] LABS: ANION GAP 14 (5-19)
[2018-07-08 17:50] LABS: CARBON DIOXIDE 47 mmol/L (22-30)
[2018-07-08] MEDS: NORMAL SALINE 250 ML with FUROSEMIDE 250 MG IV PRN ×2 (18:26)
[2018-07-08] MEDS: THIAMINE HCL 100 MG TABLET NG SCH (18:57)
[2018-07-08 19:45] LABS: CHLAM PCR NOT DETECTED (NOT DETECT); GON PCR NOT DETECTED (NOT DETECT)
--- NOTE | 2018-07-08 20:59 | PDOC PROGRESS REPORT ---
Subjective Progress Note for:: 07/08/18 Subjective:: 37 year old female with a history of morbid obesity, anemia, depression, tobacco, alcohol dependence and IV drug abuse. She presents with 2 weeks of lower extremity and abdominal swelling now with notable difficulty in breathing. CT abd/pelvis reveals diffuse anasarca, no other significant findings. The patient is alert and oriented x 3. On nasal cannula. Able to answer all questions appropriately. No evidence of ETOH withdrawal - no tremors, agitation, hallucinations. Remains on lasix gtt at 10mg/hr. Her abdomen is still distended and tight, but less so when compared to the last 72hrs. Likely transition to scheduled lasix in the next 24-48 hours. Patient complains of a painful cyst/abscess in the R axillary region. Additionally, she complains of itching to her perineum/vagina. She states she wants to be tested to STDs. External exam of the vagina does not reveal any abnormalities - no bleeding, discharge, lesions, erythema, etc. Will test her ur ine for gonorrhea and chlamydia. No need to gynecological exam. Reason For Visit: ANASARCA SOB IV DRUG USE Physical Exam Vital Signs: Temp Pulse Resp BP Pulse Ox 98.0 F 85 18 119/62 93 07/08/18 12:19 07/08/18 14:00 07/08/18 12:19 07/08/18 12:19 07/08/18 20:19 Pulse Oximeter Continuous Start: 07/04/18 10:32 Freq: RTQ4 Status: Active Protocol: Document 07/08/18 20:19 CMI (Rec: 07/08/18 20:19 CMI [id number]) Pulse Oximetry Assessment Oxygen Saturation (92-100) 93 Oxygen Flow Rate (L/min) 2 Oxygen Delivery Method Nasal Cannula Fraction of Inspired Oxygen (FIO2) 28 Equipment Usage Equipment in Use Continuous SpO2 Machine # 11 Intake & Output 07/07/18 07/08/18 07/09/18 06:59 06:59 06:59 Intake Total 1656 8432 698 Output Total 8928 3216 1400 Balance -4252 -3549 -702 Weight 126.3 kg 126.3 kg General appearance: PRESENT: morbidly obese, well-developed, well-nourished Eye exam: PRESENT: conjunctiva pink, PERRLA Mouth exam: PRESENT: moist, tongue midline Neck exam: PRESENT: full ROM Respiratory exam: PRESENT: clear to auscultation linda, decreased breath sounds - bilateral lower lobe bases, symmetrical, unlabored Cardiovascular exam: PRESENT: RRR Pulses: PRESENT: normal radial pulses, normal dorsalis pedis pul Vascular exam: PRESENT: normal capillary refill GI/Abdominal exam: PRESENT: soft, other - rotund. obese. ABSENT: tenderness Rectal exam: PRESENT: deferred Gentrourinary exam: PRESENT: indwelling catheter Extremities exam: PRESENT: full ROM Musculoskeletal exam: PRESENT: ambulatory, full ROM, normal inspection Neurological exam: PRESENT: alert, awake, oriented to person, oriented to place, oriented to time, oriented to situation Psychiatric exam: PRESENT: appropriate affect Skin exam: PRESENT: dry, intact, normal color Results Laboratory Results: 07/08/18 04:55 07/08/18 16:50 07/07/18 07/08/18 07/08/18 22:48 04:55 04:55 WBC 4.8 RBC 4.15 Hgb 9.3 L Hct 30.6 L MCV 74 L MCH 22.3 L MCHC 30.3 L RDW 28.7 H Plt Count 244 Sodium 134.9 L 135.1 L Potassium 3.6 3.6 Chloride 74 L 75 L Carbon Dioxide 51 H* 49 H* Anion Gap 10 11 BUN 11 12 Creatinine 0.90 0.84 Est GFR ( Amer) > 60 > 60 Est GFR (Non-Af Amer) > 60 > 60 Glucose 108 96 Calcium 8.9 8.8 Magnesium 2.0 1.9 Albumin 07/08/18 07/08/18 07/08/18 10:58 10:58 16:50 WBC RBC Hgb Hct MCV MCH MCHC RDW Plt Count Sodium 135.5 L 135.7 L Potassium 3.5 L 3.5 L Chloride 74 L 75 L Carbon Dioxide 50 H* 47 H* Anion Gap 12 14 BUN 11 15 Creatinine 0.82 1.06 Est GFR ( Amer) > 60 > 60 Est GFR (Non-Af Amer) > 60 59 L Glucose 101 128 H Calcium 9.0 9.1 Magnesium 1.8 1.7 Albumin 3.4 L 07/02/18 23:29 Blood Blood Culture - Final NO GROWTH IN 5 DAYS 07/02/18 22:21 Blood Blood Culture - Final NO GROWTH IN 5 DAYS 07/02/18 07/02/18 07/04/18 20:40 20:40 04:28 Troponin I < 0.012 NT-Pro-B Natriuret Pep 1710 H 1250 H Impressions: Chest X-Ray 07/02/18 21:05 IMPRESSION: Moderate cardiomegaly and mild central pulmonary vascular congestion. Abdomen/Pelvis CT 07/02/18 23:19 IMPRESSION: Diffuse anasarca with no focal fluid collection or abscess identified. Fatty liver. TECHNICAL DOCUMENTATION: Quality ID # 436: Final reports with documentation of one or more dose reduction techniques (e.g., Automated exposure control, adjustment of the mA and/or kV according to patient size, use of iterative reconstruction technique) copyright 2011 [employer]- All Rights Reserved Abdomen Ultrasound 07/05/18 11:44 IMPRESSION: No significant fluid is identified on Limited protocol. KUB X-Ray 07/05/18 11:53 IMPRESSION: Nasogastric tube in the stomach. Status: Imported from PACS Assessment and Plan - Diagnosis (1) Hypercapnic respiratory failure Qualifiers: Chronicity: acute Qualified Code(s): J96.02 - Acute respiratory failure with hypercapnia Is this a current diagnosis for this admission?: Yes Plan: Resolved. Off BIPAP Secondary to AMS, ETOH withdrawal, hypoactive delirium Initial ABG shows hypercapnic respiratory acidosis Tolerating nasal cannula, wean as tolerated SPO2 remains above 90% Avoid benzodiazepines due to profound lethargy, currently treating ETOH withdrawal with Beer TID (2) Anemia Qualifiers: Anemia type: unspecified type Qualified Code(s): D64.9 - Anemia, unspecified Is this a current diagnosis for this admission?: Yes Plan: Improving Likely due to liver disease Hgb increased 7.1-->7.6-->8.2-->9.1-->9.3 Patient is s/p 3 U PRBC no GI blood loss, does not need EGD/colonoscopy at this time Transfuse for Hgb < 8.0 (3) Anasarca Is this a current diagnosis for this admission?: No Plan: Seen on CT Abdomen very distended and tight, slight improvement today compared to previous 48 hours US Abdomen negative for ascites Continue lasix gtt 10mg/hr Continue Blank catheter Strict I&O 1500mL fluid restriction Attempt to limit IV medications (electrolyte replacement), use p.o. alternatives for possible (4) Ananya's disease Is this a current diagnosis for this admission?: No Plan: History of Ananya's disease Cortisol levels normal ACTH levels WNL (5) Alcoholism Is this a current diagnosis for this admission?: Yes Plan: Patient admits to drinking 8-9 FOUR LOKOs per day (23.5 oz can 12% alcohol) Per nursing staff, patient becomes very drowsy when given ativan Unfortunately, the hospital does not carry librium Patient may have a can of beer (TID) via NG in hopes of avoiding DTs P.o. folate and thiamine (6) Morbid obesity with BMI of 40.0-44.9, adult Is this a current diagnosis for this admission?: No Plan: Weight management with diet - Time Time Spent with patient: 15-24 minutes Medications reviewed and adjusted accordingly: Yes Anticipated discharge: Home - Inpatient Certification Based on my medical assessment, after consideration of the patient's comorbidities, presenting symptoms, or acuity I expect that the services needed warrant INPATIENT care.: Yes I certify that my determination is in accordance with my understanding of Medicare's requirements for reasonable and necessary INPATIENT services [42 CFR 412.3e].: Yes Medical Necessity: Need Close Monitoring Due to Risk of Patient Decompensation, Need For Continuous Telemetry Monitoring, Risk of Complication if Not Cared For in Hospital
[2018-07-08 23:32] LABS: BLOOD UREA NITROGEN 18 mg/dL (7-20); CHLORIDE 76 mmol/L (98-107); GLUCOSE 133 mg/dL (75-110); POTASSIUM 3.3 mmol/L (3.6-5.0); SODIUM 136.1 mmol/L (137-145)
[2018-07-08 23:53] LABS: ANION GAP 12 (5-19)
[2018-07-08 23:55] LABS: CARBON DIOXIDE 48 mmol/L (22-30)
[2018-07-09] MEDS: DIPHENHYDRAMINE HCL 50 MG/ML VIAL IV PRN ×2 (05:27→15:09)
[2018-07-09] MEDS: HEPARIN SOD (PORCINE) 5,000 UNIT/ML 1 ML SYRINGE SUBCUT SCH ×3 (05:27→22:20)
[2018-07-09 07:20] LABS: HEMATOCRIT 31.7 % (36.0-47.0); HEMOGLOBIN 9.8 g/dL (12.0-15.5); MEAN CORPUSCULAR HEMOGLOBIN 22.4 pg (27.0-33.4); MEAN CORPUSCULAR VOLUME 72 fl (80-97); PLATELET COUNT 245 10^3/uL (150-450); RED BLOOD COUNT 4.39 10^6/uL (3.72-5.28); RED CELL DISTRIBUTION WIDTH 29.3 % (11.5-14.0); WHITE BLOOD COUNT 5.9 10^3/uL (4.0-10.5)
[2018-07-09] MEDS: BEER PO SCH ×3 (07:43→17:13)
[2018-07-09] MEDS: DOCUSATE SODIUM 100 MG/10 ML UDC NG SCH ×2 (10:08→17:13)
[2018-07-09] MEDS: LACTULOSE SYRUP 20 GM/30 ML UDCUP NG SCH ×2 (10:11→22:21)
[2018-07-09] MEDS: POTASSIUM CHLORIDE 20 MEQ/15 ML UDCUP NG SCH (10:11)
[2018-07-09] MEDS: ACETAMINOPHEN SOLN 325 MG/10.15 ML UDCUP NG PRN (10:12)
[2018-07-09] MEDS: FOLIC ACID 1 MG TABLET NG SCH (10:12)
[2018-07-09 11:15] LABS: BLOOD UREA NITROGEN 16 mg/dL (7-20); CHLORIDE 77 mmol/L (98-107); GLUCOSE 107 mg/dL (75-110); POTASSIUM 3.1 mmol/L (3.6-5.0); SODIUM 134.9 mmol/L (137-145)
[2018-07-09 11:22] LABS: ANION GAP 12 (5-19)
[2018-07-09 11:26] LABS: CARBON DIOXIDE 46 mmol/L (22-30)
--- NOTE | 2018-07-09 14:25 | PDOC PROGRESS REPORT ---
Subjective Progress Note for:: 07/09/18 Subjective:: 37 year old female with a history of morbid obesity, anemia, depression, tobacco, alcohol dependence and IV drug abuse. She presents with 2 weeks of lower extremity and abdominal swelling now with notable difficulty in breathing. CT abd/pelvis reveals diffuse anasarca, no other significant findings. The patient is alert and oriented x 3. On nasal cannula. Able to answer all questions appropriately. No evidence of ETOH withdrawal - no tremors, agitation, hallucinations. Abdomen is much softer today, no pain with palpation. May discontinue Lasix GTT and transition to scheduled IV Lasix. Will discontinue Blank catheter as well. Plan to downgrade from IMCU to MED/TELE Reason For Visit: ANASARCA SOB IV DRUG USE Physical Exam Vital Signs: Temp Pulse Resp BP Pulse Ox 98.5 F 93 18 134/79 H 99 07/09/18 10:58 07/09/18 10:58 07/09/18 10:58 07/09/18 10:58 07/09/18 12:00 Pulse Oximeter Continuous Start: 07/04/18 10:32 Freq: RTQ4 Status: Active Protocol: Document 07/09/18 12:00 LDA (Rec: 07/09/18 12:03 [id number]) Pulse Oximetry Assessment Oxygen Saturation (92-100) 99 Oxygen Flow Rate (L/min) 2 Oxygen Delivery Method Nasal Cannula Fraction of Inspired Oxygen (FIO2) 28 Equipment Usage Equipment in Use Continuous SpO2 Machine # 11 Intake & Output 07/08/18 07/09/18 07/10/18 06:59 06:59 06:59 Intake Total 2198.575.9739 Output Total 9900 0108 6525 [facility] [place] [phone] Weight 126.3 kg 122.1 kg General appearance: PRESENT: morbidly obese Head exam: PRESENT: atraumatic Eye exam: PRESENT: conjunctiva pink, PERRLA Mouth exam: PRESENT: moist, tongue midline Neck exam: PRESENT: full ROM Respiratory exam: PRESENT: clear to auscultation linda, symmetrical, unlabored Cardiovascular exam: PRESENT: RRR Pulses: PRESENT: normal radial pulses, normal dorsalis pedis pul Vascular exam: PRESENT: normal capillary refill GI/Abdominal exam: PRESENT: distended, hypoactive bowel sounds. ABSENT: tenderness Rectal exam: PRESENT: deferred Extremities exam: PRESENT: full ROM. ABSENT: pedal edema Musculoskeletal exam: PRESENT: ambulatory, full ROM Neurological exam: PRESENT: alert, awake, oriented to person, oriented to place, oriented to time, oriented to situation Psychiatric exam: PRESENT: appropriate affect Skin exam: PRESENT: dry, intact, normal color Results Laboratory Results: 07/09/18 06:40 07/09/18 06:40 07/08/18 07/08/18 07/09/18 16:50 23:03 06:40 WBC RBC Hgb Hct MCV MCH MCHC RDW Plt Count Sodium 135.7 L 136.1 L Potassium 3.5 L 3.3 L Chloride 75 L 76 L Carbon Dioxide 47 H* 48 H* Anion Gap 14 12 BUN 15 18 Creatinine 1.06 1.01 Est GFR ( Amer) > 60 > 60 Est GFR (Non-Af Amer) 59 L > 60 Glucose 128 H 133 H Calcium 9.1 9.0 Magnesium 1.7 1.6 1.5 L Ammonia 07/09/18 07/09/18 07/09/18 06:40 06:40 06:40 WBC 5.9 RBC 4.39 Hgb 9.8 L Hct 31.7 L MCV 72 L MCH 22.4 L MCHC 31.0 L RDW 29.3 H Plt Count 245 Sodium 134.9 L Potassium 3.1 L Chloride 77 L Carbon Dioxide 46 H* Anion Gap 12 BUN 16 Creatinine 0.87 Est GFR ( Amer) > 60 Est GFR (Non-Af Amer) > 60 Glucose 107 Calcium 9.0 Magnesium Ammonia 24.9 07/02/18 07/02/18 07/04/18 20:40 20:40 04:28 Troponin I < 0.012 NT-Pro-B Natriuret Pep 1710 H 1250 H Impressions: Chest X-Ray 07/02/18 21:05 IMPRESSION: Moderate cardiomegaly and mild central pulmonary vascular congestion. Abdomen/Pelvis CT 07/02/18 23:19 IMPRESSION: Diffuse anasarca with no focal fluid collection or abscess identified. Fatty liver. TECHNICAL DOCUMENTATION: Quality ID # 436: Final reports with documentation of one or more dose reduction techniques (e.g., Automated exposure control, adjustment of the mA and/or kV according to patient size, use of iterative reconstruction technique) copyright 2011 [employer]- All Rights Reserved Abdomen Ultrasound 07/05/18 11:44 IMPRESSION: No significant fluid is identified on Limited protocol. KUB X-Ray 07/05/18 11:53 IMPRESSION: Nasogastric tube in the stomach. Status: Imported from PACS Assessment and Plan - Diagnosis (1) Hypercapnic respiratory failure Qualifiers: Chronicity: acute Qualified Code(s): J96.02 - Acute respiratory failure with hypercapnia Is this a current diagnosis for this admission?: Yes Plan: Resolved. Off BIPAP Secondary to AMS, ETOH withdrawal, hypoactive delirium Initial ABG shows hypercapnic respiratory acidosis Tolerating nasal cannula, wean as tolerated SPO2 remains above 90% Avoid benzodiazepines due to profound lethargy, currently treating ETOH withdrawal with Beer TID (2) Anemia Qualifiers: Anemia type: unspecified type Qualified Code(s): D64.9 - Anemia, unspecified Is this a current diagnosis for this admission?: Yes Plan: Improving Likely due to liver disease Hgb increased 7.1-->9.8 Patient is s/p 3 U PRBC this hospitalization no GI blood loss, does not need EGD/colonoscopy at this time Transfuse for Hgb < 8.0 (3) Anasarca Is this a current diagnosis for this admission?: No Plan: Seen on CT Abdomen remains distended, rotund most likely due to patient's super morbid obesity. Tightness has improved with Lasix gtt., abdomen is much softer today. Discontinue Lasix gtt., transition to oral Lasix Discontinue Blank catheter US Abdomen negative for ascites Strict I&O 1500mL fluid restriction Attempt to limit IV medications (electrolyte replacement), use p.o. alternatives for possible (4) [place]'s disease Is this a current diagnosis for this admission?: No Plan: History of Ananya's disease Cortisol levels normal ACTH levels WNL (5) Alcoholism Is this a current diagnosis for this admission?: Yes Plan: Patient admits to drinking 8-9 FOUR LOKOs per day (23.5 oz can 12% alcohol) Per nursing staff, patient becomes very drowsy when given ativan Unfortunately, the hospital does not carry librium Patient may have a can of beer (TID) via NG in hopes of avoiding DTs P.o. folate and thiamine (6) Morbid obesity with BMI of 40.0-44.9, adult Is this a current diagnosis for this admission?: No Plan: Weight management with diet - Time Time Spent with patient: 15-24 minutes Medications reviewed and adjusted accordingly: Yes Anticipated discharge: Home - Inpatient Certification Based on my medical assessment, after consideration of the patient's comorbidities, presenting symptoms, or acuity I expect that the services needed warrant INPATIENT care.: Yes I certify that my determination is in accordance with my understanding of Medicare's requirements for reasonable and necessary INPATIENT services [42 CFR 412.3e].: Yes Medical Necessity: Need For Continuous Telemetry Monitoring, Risk of Complicat ion if Not Cared For in Hospital
[2018-07-09] MEDS: FUROSEMIDE INJ/PF 40 MG/4 ML SDV IV SCH ×2 (14:55→22:21)
[2018-07-09] MEDS: MAGNESIUM SULFATE/D5W 1 GM/100 ML RTUPB IV SCH ×2 (14:56→16:35)
[2018-07-09] MEDS: THIAMINE HCL 100 MG TABLET NG SCH (17:12)
[2018-07-09] MEDS: POTASSI CL 20 MEQ/50 ML RIDER 20 MEQ/50 ML RTUPB IV SCH ×2 (18:25→20:03)
[2018-07-10 02:16] LABS: HEMATOCRIT 31.2 % (36.0-47.0); HEMOGLOBIN 9.5 g/dL (12.0-15.5); MEAN CORPUSCULAR HEMOGLOBIN 22.3 pg (27.0-33.4); MEAN CORPUSCULAR HGB CONC 30.5 g/dL (32.0-36.0); MEAN CORPUSCULAR VOLUME 73 fl (80-97); PLATELET COUNT 216 10^3/uL (150-450); RED BLOOD COUNT 4.27 10^6/uL (3.72-5.28); WHITE BLOOD COUNT 5.9 10^3/uL (4.0-10.5)
[2018-07-10 02:35] LABS: ANION GAP 12 (5-19); BLOOD UREA NITROGEN 15 mg/dL (7-20); CALCIUM 8.8 mg/dL (8.4-10.2); CHLORIDE 80 mmol/L (98-107); POTASSIUM 3.2 mmol/L (3.6-5.0); SODIUM 132.4 mmol/L (137-145)
[2018-07-10 02:37] LABS: GLUCOSE 99 mg/dL (75-110)
[2018-07-10 03:03] LABS: CARBON DIOXIDE 40 mmol/L (22-30)
[2018-07-10] MEDS: FUROSEMIDE INJ/PF 40 MG/4 ML SDV IV SCH ×3 (05:57→21:23)
[2018-07-10] MEDS: HEPARIN SOD (PORCINE) 5,000 UNIT/ML 1 ML SYRINGE SUBCUT SCH ×3 (05:58→21:23)
[2018-07-10] MEDS: DIPHENHYDRAMINE HCL 25 MG CAPSULE PO PRN ×2 (08:24→21:23)
[2018-07-10] MEDS: BEER PO SCH ×3 (08:24→18:10)
[2018-07-10] MEDS: ACETAMINOPHEN SOLN 325 MG/10.15 ML UDCUP NG PRN (11:15)
[2018-07-10] MEDS: FOLIC ACID 1 MG TABLET NG SCH (11:15)
[2018-07-10] MEDS: DOCUSATE SODIUM 100 MG/10 ML UDC NG SCH ×2 (11:17→14:27)
[2018-07-10] MEDS: LACTULOSE SYRUP 20 GM/30 ML UDCUP NG SCH (11:18)
[2018-07-10] MEDS ORDERED: ACETAMINOPHEN SOLN 325 MG/10.15 ML UDCUP PO PRN (12:00)
[2018-07-10] MEDS: POTASSIUM CHLORIDE 20 MEQ/15 ML UDCUP NG SCH (12:00)
[2018-07-10] MEDS ORDERED: MAG HYDROX/AL HYDROX/SIMETH SUSP 30 ML UDCUP PO PRN (12:00)
[2018-07-10] MEDS ORDERED: POTASSIUM CHLORIDE 10 MEQ CAPSULE.ER PO ONE ×2 (12:14→16:00)
[2018-07-10] MEDS: MAGNESIUM SULFATE/D5W 1 GM/100 ML RTUPB IV SCH ×2 (12:55→18:09)
[2018-07-10] MEDS ORDERED: MAGNESIUM SULFATE/D5W 1 GM/100 ML RTUPB IV ONE (17:15)
[2018-07-10] MEDS ORDERED: DOCUSATE SODIUM 100 MG/10 ML UDC PO SCH (18:00)
[2018-07-10] MEDS: THIAMINE HCL 100 MG TABLET PO SCH (18:13)
[2018-07-10] MEDS: DOCUSATE SODIUM 100 MG CAPSULE PO SCH (18:13)
[2018-07-10] MEDS ORDERED: LACTULOSE SYRUP 20 GM/30 ML UDCUP PO SCH (22:00)
[2018-07-11] MEDS: FUROSEMIDE INJ/PF 40 MG/4 ML SDV IV SCH (06:18)
[2018-07-11] MEDS: HEPARIN SOD (PORCINE) 5,000 UNIT/ML 1 ML SYRINGE SUBCUT SCH ×3 (06:19→21:09)
[2018-07-11 06:51] LABS: ALANINE AMINOTRANSFERASE 34 U/L (9-52); ALBUMIN 3.5 g/dL (3.5-5.0); ALKALINE PHOSPHATASE 154 U/L (38-126); ANION GAP 11 (5-19); ASPARTATE AMINO TRANSFERASE 142 U/L (14-36); BILIRUBIN,TOTAL 1.4 mg/dL (0.2-1.3); BLOOD UREA NITROGEN 13 mg/dL (7-20); CALCIUM 9.2 mg/dL (8.4-10.2); CARBON DIOXIDE 36 mmol/L (22-30); CHLORIDE 87 mmol/L (98-107); GLUCOSE 110 mg/dL (75-110); POTASSIUM 3.8 mmol/L (3.6-5.0); SODIUM 133.8 mmol/L (137-145); TOTAL PROTEIN 8.2 g/dL (6.3-8.2)
--- NOTE | 2018-07-11 07:55 | PDOC PROGRESS REPORT ---
Subjective Progress Note for:: 07/10/18 Subjective:: 37 year old female with a history of morbid obesity, anemia, depression, tobacco, alcohol dependence and IV drug abuse. She presents with 2 weeks of lower extremity and abdominal swelling now with notable difficulty in breathing. CT abd/pelvis reveals diffuse anasarca, no other significant findings. The patient is alert and oriented x 3. Able to answer all questions appropriately. No evidence of ETOH withdrawal - no tremors, agitation, hallucinations. Abdomen is much softer today, no pain with palpation. Discontinued Lasix GTT yesterday and transitioned to scheduled IV Lasix. Lengthy conversation with patient today, she is expressing a desire to go home. Her abdomen remains very distended and tight due to anasarca. I voiced my concerns about her ability to comply with outpatient treatment. She has not verbalized any desire to stop drinking (9 FOUR JOSÉ MIGUEL's per day). If she resumes drinking and does not comply with medication, she will likely end up back in the hospital within weeks. The patient agreed to say another day with the promise that discharge would be re-evaluated tomorrow. Reason For Visit: ANASARCA SOB IV DRUG USE Physical Exam Vital Signs: Temp Pulse Resp BP Pulse Ox 97.9 F 94 21 H 128/51 H 100 07/11/18 04:35 07/11/18 04:35 07/11/18 04:35 07/11/18 04:35 07/11/18 04:35 Pulse Oximeter Continuous Start: 07/04/18 10:32 Freq: RTQ4 Status: Active Protocol: Document 07/11/18 03:51 LDA (Rec: 07/11/18 03:51 LDA [id number]) Pulse Oximetry Assessment Equipment Usage Equipment Standby Continuous SpO2 Machine # 11 Intake & Output 07/10/18 07/11/18 07/12/18 06:59 06:59 06:59 Intake Total 3514 2577 Output Total 1733 4280 Balance -0784 -7480 Weight 123.3 kg 119.6 kg General appearance: PRESENT: no acute distress, morbidly obese Eye exam: PRESENT: conjunctiva pink, PERRLA Mouth exam: PRESENT: moist, tongue midline Teeth exam: PRESENT: poor dentation Respiratory exam: PRESENT: clear to auscultation linda, symmetrical, unlabored Cardiovascular exam: PRESENT: RRR Pulses: PRESENT: normal radial pulses, normal dorsalis pedis pul Vascular exam: PRESENT: normal capillary refill GI/Abdominal exam: PRESENT: distended, firm, hypoactive bowel sounds Rectal exam: PRESENT: deferred Extremities exam: PRESENT: full ROM Musculoskeletal exam: PRESENT: ambulatory, full ROM, normal inspection Neurological exam: PRESENT: alert, awake, oriented to person, oriented to place, oriented to time, oriented to situation Psychiatric exam: PRESENT: appropriate affect Skin exam: PRESENT: dry, intact, normal color Results Laboratory Results: 07/10/18 02:08 07/11/18 05:30 07/11/18 05:30 Sodium 133.8 L Potassium 3.8 Chloride 87 L Carbon Dioxide 36 H Anion Gap 11 BUN 13 Creatinine 0.86 Est GFR ( Amer) > 60 Est GFR (Non-Af Amer) > 60 Glucose 110 Calcium 9.2 Magnesium 2.3 Total Bilirubin 1.4 H AST 142 H ALT 34 Alkaline Phosphatase 154 H Total Protein 8.2 Albumin 3.5 07/02/18 07/02/18 07/04/18 20:40 20:40 04:28 Troponin I < 0.012 NT-Pro-B Natriuret Pep 1710 H 1250 H Impressions: Chest X-Ray 07/02/18 21:05 IMPRESSION: Moderate cardiomegaly and mild central pulmonary vascular congestion. Abdomen/Pelvis CT 07/02/18 23:19 IMPRESSION: Diffuse anasarca with no focal fluid collection or abscess identified. Fatty liver. TECHNICAL DOCUMENTATION: Quality ID # [id number]: Final reports with documentation of one or more dose reduction techniques (e.g., Automated exposure control, adjustment of the mA and/or kV according to patient size, use of iterative reconstruction technique) copyright 2011 [employer]- All Rights Reserved Abdomen Ultrasound 07/05/18 11:44 IMPRESSION: No significant fluid is identified on Limited protocol. KUB X-Ray 07/05/18 11:53 IMPRESSION: Nasogastric tube in the stomach. Status: Imported from PACS Assessment and Plan - Diagnosis (1) Hypercapnic respiratory failure Qualifiers: Chronicity: acute Qualified Code(s): J96.02 - Acute respiratory failure with hypercapnia Is this a current diagnosis for this admission?: Yes Plan: Resolved. Off BIPAP, now on room air Secondary to AMS, ETOH withdrawal, hypoactive delirium Initial ABG shows hypercapnic respiratory acidosis Tolerating nasal cannula, wean as tolerated SPO2 remains above 90% Avoid benzodiazepines due to profound lethargy, currently treating ETOH withdrawal with Beer TID (2) Anemia Qualifiers: Anemia type: unspecified type Qualified Code(s): D64.9 - Anemia, unspecified Is this a current diagnosis for this admission?: Yes Plan: Improving Likely due to liver disease Hgb increased 7.1-->9.8 Patient is s/p 3 U PRBC this hospitalization no GI blood loss, does not need EGD/colonoscopy at this time Transfuse for Hgb < 8.0 (3) Anasarca Is this a current diagnosis for this admission?: No Plan: Seen on CT Abdomen remains distended, rotund most likely due to patient's super morbid obesity. Tightness has improved with Lasix, abdomen is much softer than initial presentation but remains very distended and firm Continue scheduled Lasix US Abdomen negative for ascites Strict I&O 1500mL fluid restriction Attempt to limit IV medications (electrolyte replacement), use p.o. alternatives for possible (4) Ananya's disease Is this a current diagnosis for this admission?: No Plan: History of Ananya's disease Cortisol levels normal ACTH levels WNL (5) Alcoholism Is this a current diagnosis for this admission?: Yes Plan: Patient admits to drinking 8-9 FOUR LOKOs per day (23.5 oz can 12% alcohol) Per nursing staff, patient becomes very drowsy when given ativan Unfortunately, the hospital does not carry librium Patient may have a can of beer (TID) with meals in hopes of avoiding DTs P.o. folate and thiamine Ammonia levels have returned to normal, d/c lactulose today (6) Morbid obesity with BMI of 40.0-44.9, adult Is this a current diagnosis for this admission?: No Plan: Weight management with diet - Time Time Spent with patient: 15-24 minutes Medications reviewed and adjusted accordingly: Yes Anticipated discharge: Home Within: within 48 hours - Inpatient Certification Based on my medical assessment, after consideration of the patient's comorbidities, presenting symptoms, or acuity I expect that the services needed warrant INPATIENT care.: Yes I certify that my determination is in accordance with my understanding of [employer] 's requirements for reasonable and necessary INPATIENT services [42 CFR 412.3e].: Yes Medical Necessity: Risk of Complication if Not Cared For in Hospital
[2018-07-11 08:29] LABS: HEMOGLOBIN 10.2 g/dL (12.0-15.5); MEAN CORPUSCULAR HEMOGLOBIN 22.7 pg (27.0-33.4); MEAN CORPUSCULAR HGB CONC 30.8 g/dL (32.0-36.0); MEAN CORPUSCULAR VOLUME 74 fl (80-97); PLATELET COUNT 307 10^3/uL (150-450); RED BLOOD COUNT 4.48 10^6/uL (3.72-5.28); RED CELL DISTRIBUTION WIDTH 28.8 % (11.5-14.0); WHITE BLOOD COUNT 6.7 10^3/uL (4.0-10.5)
[2018-07-11] MEDS: BEER PO SCH ×3 (08:49→18:24)
[2018-07-11] MEDS: ACETAMINOPHEN 325 MG TABLET PO PRN ×2 (08:50→21:11)
[2018-07-11] MEDS ORDERED: POTASSIUM CHLORIDE 20 MEQ/15 ML UDCUP PO SCH (10:00)
[2018-07-11] MEDS ORDERED: POTASSIUM CHLORIDE 10 MEQ CAPSULE.ER PO SCH (10:00)
[2018-07-11] MEDS: FOLIC ACID 1 MG TABLET PO SCH (11:06)
[2018-07-11] MEDS: DIPHENHYDRAMINE HCL 25 MG CAPSULE PO PRN ×3 (11:06→21:11)
[2018-07-11] MEDS: DOCUSATE SODIUM 100 MG CAPSULE PO SCH (11:06)
[2018-07-11] MEDS: SPIRONOLACTONE 25 MG TABLET PO SCH (11:06)
[2018-07-11] MEDS: FUROSEMIDE 40 MG TABLET PO SCH (11:06)
--- NOTE | 2018-07-11 17:53 | PDOC PROGRESS REPORT ---
Subjective Progress Note for:: 07/11/18 Subjective:: 37 year old female with a history of morbid obesity, anemia, depression, tobacco, alcohol dependence and IV drug abuse. She presents with 2 weeks of lower extremity and abdominal swelling now with notable difficulty in breathing. CT abd/pelvis reveals diffuse anasarca, no other significant findings. The patient was seen on morning rounds. She was found sitting upright in bed comfortably on room air. She reports that she is feeling well today; does continue to complain of a distended abdomen, though notes that the edema to her lower extremities has improved dramatically. She also reports that she is no longer having difficulty breathing denies dyspnea with exertion, orthopnea, cough, chest pain, palpitations. She is evasive when with attempts to discuss her alcohol use and declines need to discontinue drinking and further declines mental health evaluations. Overall, she states that she is improved as compared to the time of her admission and is looking forward to her discharge to home. She has no other questions or concerns. No concerns per nursing. Reason For Visit: ANASARCA SOB IV DRUG USE Physical Exam Vital Signs: Temp Pulse Resp BP Pulse Ox 98.8 F 93 18 130/73 H 95 07/11/18 07:35 07/11/18 07:35 07/11/18 07:35 07/11/18 07:35 07/11/18 07:35 Pulse Oximeter Continuous Start: 07/04/18 10:32 Freq: RTQ4 Status: Complete Protocol: Document 07/11/18 03:51 LDA (Rec: 07/11/18 03:51 LDA [id number]) Pulse Oximetry Assessment Equipment Usage Equipment Standby Continuous SpO2 Machine # 11 Intake & Output 07/10/18 07/11/18 07/12/18 06:59 06:59 06:59 Intake Total 2312 2083 Output Total 7875 5984 Balance -2894 -2346 Weight 123.3 kg 119.6 kg General appearance: PRESENT: no acute distress, disheveled, morbidly obese, well-developed. ABSENT: cooperative Head exam: PRESENT: atraumatic, normocephalic Eye exam: PRESENT: conjunctiva pink, EOMI, PERRLA. ABSENT: scleral icterus Mouth exam: PRESENT: moist, tongue midline Teeth exam: PRESENT: poor dentation Neck exam: ABSENT: carotid bruit, JVD, lymphadenopathy, thyromegaly Respiratory exam: PRESENT: clear to auscultation linda, symmetrical, unlabored. ABSENT: rales, rhonchi, wheezes Cardiovascular exam: PRESENT: RRR. ABSENT: diastolic murmur, rubs, systolic murmur Pulses: PRESENT: normal dorsalis pedis pul Vascular exam: PRESENT: normal capillary refill GI/Abdominal exam: PRESENT: distended, normal bowel sounds, soft. ABSENT: guarding, mass, organolmegaly, rebound, tenderness Rectal exam: PRESENT: deferred Extremities exam: PRESENT: full ROM. ABSENT: calf tenderness, clubbing, pedal edema Musculoskeletal exam: PRESENT: ambulatory Neurological exam: PRESENT: alert, awake, oriented to person, oriented to place, oriented to time, oriented to situation, CN II-XII grossly intact. ABSENT: motor sensory deficit Psychiatric exam: PRESENT: appropriate affect. ABSENT: homicidal ideation, suicidal ideation Skin exam: PRESENT: dry, intact, warm. ABSENT: cyanosis, rash Results Laboratory Results: 07/11/18 05:30 07/11/18 05:30 07/11/18 07/11/18 07/11/18 05:30 05:30 10:39 WBC 6.7 RBC 4.48 Hgb 10.2 L Hct 33.0 L MCV 74 L MCH 22.7 L MCHC 30.8 L RDW 28.8 H Plt Count 307 Sodium 133.8 L Potassium 3.8 Chloride 87 L Carbon Dioxide 36 H Anion Gap 11 BUN 13 Creatinine 0.86 Est GFR ( Amer) > 60 Est GFR (Non-Af Amer) > 60 Glucose 110 Calcium 9.2 Magnesium 2.3 Total Bilirubin 1.4 H AST 142 H ALT 34 Alkaline Phosphatase 154 H Ammonia 24.3 Total Protein 8.2 Albumin 3.5 07/08/18 10:54 Axilla - Right Side Abscess Gram Stain - Final 07/02/18 07/02/18 07/04/18 20:40 20:40 04:28 Troponin I < 0.012 NT-Pro-B Natriuret Pep 1710 H 1250 H Impressions: Chest X-Ray 07/02/18 21:05 IMPRESSION: Moderate cardiomegaly and mild central pulmonary vascular congestion. Abdomen/Pelvis CT 07/02/18 23:19 IMPRESSION: Diffuse anasarca with no focal fluid collection or abscess identified. Fatty liver. TECHNICAL DOCUMENTATION: Quality ID # 436: Final reports with documentation of one or more dose reduction techniques (e.g., Automated exposure control, adjustment of the mA and/or kV according to patient size, use of iterative reconstruction technique) copyright 2011 [employer]- All Rights Reserved Abdomen Ultrasound 07/05/18 11:44 IMPRESSION: No significant fluid is identified on Limited protocol. KUB X-Ray 07/05/18 11:53 IMPRESSION: Nasogastric tube in the stomach. Assessment and Plan - Diagnosis (1) Hypercapnic respiratory failure Qualifiers: Chronicity: acute Qualified Code(s): J96.02 - Acute respiratory failure with hypercapnia Is this a current diagnosis for this admission?: Yes Plan: Resolved. Off BIPAP, now maintaining saturations while ambulatory on room air Secondary to AMS, ETOH withdrawal, hypoactive delirium, and substance abuse (positive for cocaine) Initial ABG shows hypercapnic respiratory acidosis; have improved and no longer trending. Avoid benzodiazepines due to profound lethargy, currently treating ETOH withdrawal with Beer TID Patient is counseled to avoid illicit drug use, continue decreasing EtOH intake, and the importance of smoking cessation. She is also counseled regarding dietary discretion and lifestyle modification for continued sustained weight loss. (2) Alcohol dependence Is this a current diagnosis for this admission?: Yes Plan: Patient admits to drinking 8-9 FOUR LOKOs per day (23.5 oz can 12% alcohol) Per nursing staff, patient becomes very drowsy when given ativan Unfortunately, the hospital does not carry librium Patient may have a can of beer (TID) with meals in hopes of avoiding DTs P.o. folate and thiamine Ammonia levels have returned to normal, continue lactulose; titrate to 2-3 soft bm's daily. Mental health consultation offered and declined. (3) Anasarca Is this a current diagnosis for this admission?: No Plan: Significant improvement; patient is down ~[address]; US Abdomen negative for ascites Abdomen remains distended/rotund most likely due to patient's super morbid obesity. Transition to p.o. spironolactone and Lasix Daily weights and strict I&O 1500mL fluid restriction Attempt to limit IV medications (electrolyte replacement), use p.o. alternatives for possible (4) Anemia Qualifiers: Anemia type: iron deficiency Iron deficiency anemia type: inadequate dietary iron intake Qualified Code(s): D50.8 - Other iron deficiency anemias Is this a current diagnosis for this admission?: Yes Plan: Improving Multifactorial secondary to iron deficiency, nutritional deficiencies (EtOH dependence) and subsequent development of liver disease Hgb increased 7.1--> 10.2 Patient is s/p 3 U PRBC this hospitalization no GI blood loss, does not need EGD/colonoscopy at this time Transfuse for Hgb < 8.0 Continue multivitamin, folic acid, thiamine, and ferrous sulfate supplementation. (5) Avon's disease Is this a current diagnosis for this admission?: No Plan: History of Ananya's disease Cortisol levels normal ACTH levels WNL (6) Morbid obesity with BMI of 45.0-49.9, adult Is this a current diagnosis for this admission?: Yes Plan: Dietary discretion is advised. Registered dietitian was consulted. (7) Substance abuse Is this a current diagnosis for this admission?: Yes Plan: UDS positive for cocaine on admission. Patient is counseled on the importance of avoiding illicit substances. Mental health consultation was offered and declined. Discharge planning is consulted. (8) Tobacco dependence Is this a current diagnosis for this admission?: Yes Plan: Smoking cessation encouraged. Nicotine replacement therapies are offered. - Time Time Spent with patient: 35 or more minutes Medications reviewed and adjusted accordingly: Yes Anticipated discharge: Home Within: within 24 hours
[2018-07-11] MEDS: THIAMINE HCL 100 MG TABLET PO SCH (18:24)
[2018-07-11] MEDS: LACTULOSE SYRUP 20 GM/30 ML UDCUP PO SCH (18:24)
[2018-07-12] MEDS: HEPARIN SOD (PORCINE) 5,000 UNIT/ML 1 ML SYRINGE SUBCUT SCH ×2 (05:02→13:32)
[2018-07-12 06:05] LABS: ANION GAP 8 (5-19); BLOOD UREA NITROGEN 14 mg/dL (7-20); CALCIUM 9.4 mg/dL (8.4-10.2); CARBON DIOXIDE 33 mmol/L (22-30); CHLORIDE 91 mmol/L (98-107); GLUCOSE 124 mg/dL (75-110); POTASSIUM 3.6 mmol/L (3.6-5.0); SODIUM 132.2 mmol/L (137-145)
[2018-07-12] MEDS: BEER PO SCH ×2 (08:57→12:33)
[2018-07-12] MEDS: LACTULOSE SYRUP 20 GM/30 ML UDCUP PO SCH (09:11)
[2018-07-12] MEDS: FUROSEMIDE 40 MG TABLET PO SCH (09:11)
[2018-07-12] MEDS: SPIRONOLACTONE 25 MG TABLET PO SCH (09:11)
[2018-07-12] MEDS: FOLIC ACID 1 MG TABLET PO SCH (09:58)
[2018-07-12] MEDS: ACETAMINOPHEN 325 MG TABLET PO PRN (09:58)
[2018-07-12] MEDS: DIPHENHYDRAMINE HCL 25 MG CAPSULE PO PRN (09:58)
[2018-07-12] MEDS ORDERED: FUROSEMIDE 40 MG TABLET PO SCH (10:00)
[2018-07-12] MEDS ORDERED: MULTIVITAMIN TABLET PO SCH (10:00)
[2018-07-12] MEDS ORDERED: FERROUS SULFATE 325 MG TABLET PO SCH (10:00)
[2018-07-12 12:06] VITALS: BP 137/83
--- NOTE | 2018-07-13 22:10 | PDOC DISCHARGE SUMMARY ---
General - Admit/Disc Date/PCP Admission Date/Primary Care Provider: 07/03/18 01:33 Discharge Date: 07/12/18 - Discharge Diagnosis (1) Hypercapnic respiratory failure Is this a current diagnosis for this admission?: Yes Summary: Resolved. Off BIPAP, now maintaining saturations while ambulatory on room air Secondary to AMS, ETOH withdrawal, hypoactive delirium, and substance abuse (positive for cocaine) Initial ABG shows hypercapnic respiratory acidosis; have improved and no longer trending. Patient is counseled to avoid illicit drug use, continue decreasing EtOH intake, and the importance of smoking cessation. She is also counseled regarding dietary discretion and lifestyle modification for continued sustained weight loss. At time of discharge, patient is in stable condition and maintaining saturations while ambulatory on room air. She is discharged to home with self care. She is advised to follow up with her PCP within 1 week. Recommend repeat BMP at follow up visit. She is educated on the importance of lifestyle modifications to include tobacco, drug, and alcohol cessation. She is instructed to titrate her Lactulose to 2-3 soft bm's daily and to take all other medications exactly as prescribed. She is advised to return to the emergency room as needed for concerning symptoms. (2) Alcohol dependence Is this a current diagnosis for this admission?: Yes Summary: Patient admits to drinking 8-9 FOUR LOKOs per day (23.5 oz can 12% alcohol) Despite multiple attempts to discuss sobriety; patient continued to express disinterest in changing her alcohol intake. Therefore, alcohol withdrawal was prevented with One can of beer (TID). She was placed on p.o. multivitamin, ferrous sulfate, folate and thiamine. She initially had an elevated ammonia level of 69; corrected to 24.3 with Lactulose. Recommend continuing lactulose; titrate to 2-3 soft bm's daily, to prevent recurrent hepatic encephalopathy. Mental health consultation offered and declined. (3) Anasarca Is this a current diagnosis for this admission?: No Summary: Significant improvement; patient is down ~[address]; Abdomen u/s negative for ascites Dependent edema has resolved; abdomen remains distended/rotund, though now soft to palpation. Patient was initially placed on a fluid restriction and lasix drip; she has since been transitioned to p.o. lasix with the addition of spironolactone to continue post discharge. Patient was educated on importance of alcohol sobriety, low sodium diet, and fluid restriction >2 L daily. She is advised of the importance of following up with PCP. Recommend repeat BMP at follow up visit. (4) Anemia Is this a current diagnosis for this admission?: Yes Summary: Improved. Multifactorial secondary to iron deficiency, nutritional deficiencies (EtOH dependence) and subsequent development of liver disease Hgb increased 7.1--> 10.2 Patient is s/p 3 units PRBC. no GI blood loss, does not need EGD/colonoscopy at this time Recommend alcohol cessation and continued multivitamin, folic acid, thiamine, and ferrous sulfate supplementation. (5) Ananya's disease Is this a current diagnosis for this admission?: No Summary: History of Scotia's disease Cortisol levels normal ACTH levels WNL (6) Morbid obesity with BMI of 45.0-49.9, adult Is this a current diagnosis for this admission?: Yes Summary: Dietary discretion and lifestyle modifications were encouraged. Patient was provided the opportunity to meet with the Registered dietitian. (7) Substance abuse Is this a current diagnosis for this admission?: Yes Summary: UDS positive for cocaine on admission. Patient is counseled on the importance of avoiding illicit substances. Mental health consultation was offered and declined. (8) Tobacco dependence Is this a current diagnosis for this admission?: Yes Summary: Smoking cessation encouraged. Nicotine replacement therapies were offered. Patient was provided a prescription for Nicoderm patches at discharge. (9) Hepatic encephalopathy Is this a current diagnosis for this admission?: Yes Summary: Resolved. Secondary to EtOH abuse/dependence, alcohol cirrhosis, and elevated ammonia. Patient is advised to STOP drinking any amount of EtOH. She is provided prescriptions for spironolactone, lasix, and Lactulose. Despite clear evidence of liver dysfunction (elevated LFT and ammonia, ascites, fatty liver on CT); the patient's MELD Score is only 9. (10) Hyperammonemia Is this a current diagnosis for this admission?: Yes Summary: Resolved; 69-> 24 with Lactulose. Recommend continued use; titrate to 2-3 soft bm's daily to prevent reoccurrence. - Additional Information Resuscitation Status: Full Code Discharge Diet: Cardiac Discharge Activity: Activity As Tolerated, Balance Activity w/Rest Prescriptions: Famotidine [Pepcid 20 mg Tablet] 20 mg PO DAILY #30 tablet Ferrous Sulfate [Feosol 325 mg Tablet] 325 mg PO DAILY #90 tablet Folic Acid [Folvite 1 mg Tablet] 1 mg PO DAILY #90 tablet Furosemide [Lasix 40 mg Tablet] 40 mg PO DAILY #60 tablet Lactulose [Cephulac Syrup 20 gm/30 ml Udcup] 20 gm PO BID #60 udc Multivitamin [Tab-A-Audie (Multiple Vitamin) Tablet] 1 tab PO DAILY #90 tablet Nicotine [Nicoderm 14 mg/24 Hr Transdermal Patch] 1 patch TD DAILY #30 patch.td24 Spironolactone 100 mg PO DAILY #30 tablet Thiamine HCl [Thiamine 100 mg Tablet] 100 mg PO QPM #90 tablet Home Medications: Acetaminophen [Tylenol 325 mg Tablet] 650 mg PO Q4HP PRN tablet 07/12/18 Famotidine [Pepcid 20 mg Tablet] 20 mg PO DAILY #30 tablet 07/12/18 Ferrous Sulfate [Feosol 325 mg Tablet] 325 mg PO DAILY #90 tablet 07/12/18 Folic Acid [Folvite 1 mg Tablet] 1 mg PO DAILY #90 tablet 07/12/18 Furosemide [Lasix 40 mg Tablet] 40 mg PO DAILY #60 tablet 07/12/18 Lactulose [Cephulac Syrup 20 gm/30 ml Udcup] 20 gm PO BID #60 udc 07/12/18 Mag Hydrox/Al Hydrox/Simeth [Maalox Plus Susp 30 Udcup] 30 ml PO Q6HP PRN udc 07/12/18 Multivitamin [Tab-A-Audie (Multiple Vitamin) Tablet] 1 tab PO DAILY #90 tablet 07/12/18 Nicotine [Nicoderm 14 mg/24 Hr Transdermal Patch] 1 patch TD DAILY #30 patch.td24 07/12/18 Spironolactone 100 mg PO DAILY #30 tablet 07/12/18 Thiamine HCl [Thiamine 100 mg Tablet] 100 mg PO QPM #90 tablet 07/12/18 History of Present Illness History of Present Illness: Per H&P by Dr. Finn: ZANDER GIBBS is a 37 year old female with a history of morbid obesity, anemia, depression, tobacco, alcohol dependence and IV drug abuse. She presents with 2 weeks of lower extremity and abdominal swelling now with notable difficulty in breathing. She admits fever, denies localized pain, change in urine or new medications. She has no recent medical evaluation. In the emergency department she is found with tachypnea, use of accessory muscles during breathing, profound anemia with anasarca and a systolic murmur. She receives Ancef and referred to the hospitalist for admission. She is a poor historian but denies history of alcoholic hepatitis or bacterial peritonitis. Physical Exam Vital Signs: Temp Pulse Resp BP Pulse Ox 98 F 93 20 137/83 H 91 L 07/12/18 12:51 07/12/18 12:51 07/12/18 12:51 07/12/18 12:51 07/12/18 12:51 Pulse Oximeter Continuous Start: 07/04/18 10:32 Freq: RTQ4 Status: Complete Protocol: Document 07/11/18 03:51 LDA (Rec: 07/11/18 03:51 LDA [id number]) Pulse Oximetry Assessment Equipment Usage Equipment Standby Continuous SpO2 Machine # 11 Intake & Output 07/12/18 07/13/18 07/14/18 06:59 06:59 06:59 Intake Total 1649 Output Total 2300 Balance -651 Weight 120.2 kg General appearance: PRESENT: no acute distress, well-developed, well-nourished Head exam: PRESENT: atraumatic, normocephalic Eye exam: PRESENT: conjunctiva pink, EOMI, PERRLA. ABSENT: scleral icterus Ear exam: PRESENT: normal external ear exam Mouth exam: PRESENT: moist, tongue midline Neck exam: ABSENT: carotid bruit, JVD, lymphadenopathy, thyromegaly Respiratory exam: PRESENT: clear to auscultation linda. ABSENT: rales, rhonchi, wheezes Cardiovascular exam: PRESENT: RRR. ABSENT: diastolic murmur, rubs, systolic murmur Pulses: PRESENT: normal dorsalis pedis pul Vascular exam: PRESENT: normal capillary refill GI/Abdominal exam: PRESENT: normal bowel sounds, soft. ABSENT: distended, guarding, mass, organolmegaly, rebound, tenderness Rectal exam: PRESENT: deferred Extremities exam: PRESENT: full ROM. ABSENT: calf tenderness, clubbing, pedal edema Neurological exam: PRESENT: alert, awake, oriented to person, oriented to place, oriented to time, oriented to situation, CN II-XII grossly intact. ABSENT: motor sensory deficit Psychiatric exam: PRESENT: appropriate affect, normal mood. ABSENT: homicidal ideation, suicidal ideation Skin exam: PRESENT: dry, intact, warm. ABSENT: cyanosis, rash Results Laboratory Results: 07/11/18 05:30 07/12/18 05:12 07/02/18 07/02/18 07/04/18 20:40 20:40 04:28 Troponin I < 0.012 NT-Pro-B Natriuret Pep 1710 H 1250 H Impressions: Chest X-Ray 07/02/18 21:05 IMPRESSION: Moderate cardiomegaly and mild central pulmonary vascular congestion. Abdomen/Pelvis CT 07/02/18 23:19 IMPRESSION: Diffuse anasarca with no focal fluid collection or abscess identified. Fatty liver. TECHNICAL DOCUMENTATION: Quality ID # [id number]: Final reports with documentation of one or more dose reduction techniques (e.g., Automated exposure control, adjustment of the mA and/or kV according to patient size, use of iterative reconstruction technique) copyright 2011 [employer]- All Rights Reserved Abdomen Ultrasound 07/05/18 11:44 IMPRESSION: No significant fluid is identified on Limited protocol. KUB X-Ray 07/05/18 11:53 IMPRESSION: Nasogastric tube in the stomach. Qualifiers - * PATIENT BEING DISCHARGED WITH ANY OF THE FOLLOWING DIAGNOSIS: Heart Failure HF Pt being discharged on ACEI for LVEF less than 40%?: No Reason(s) for not prescribing ACEI:: Not indicated HF Pt being discharged on ARBS for LVEF less than 40%?: No Reason(s) for not prescribing ARBS:: Not indicated HF Pt with Afib discharged with Warfarin?: No Reason(s) for not prescribing Warfarin:: Not indicated HF Pt discharged on evidence-based Beta Dane:: No Reason(s) for not prescribing evidence-based Beta Dane:: Not indicated Plan Discharge Plan: Patient is discharged to home with self care. Follow up with primary care provider within 1 week. Recommend establishing with mental health/substance abuse counsellor. Eat a low sodium diet. Reduce total fluid intake to less than 2 L daily. STOP drinking alcohol. STOP smoking. STOP illicit drug use. Return to the emergency department as needed for concerning symptoms. Time Spent: Greater than 30 Minutes
== END 2018-07-12 14:19 | disposition home or self-care (01) | DRG 896 ==
LOC: ER 20:36 → EH 07-03 01:33 → 3S 07-03 03:12 → 4N 07-03 14:18 → 3W 07-05 17:01 → 4W 07-12 06:20 → UNDODISIN 07-12 13:01
PROVIDERS: ADMIT Internal Medicine; ATTEND Internal Medicine
PROC: 0J963ZZ Drainage of Chest Subcutaneous Tissue and Fascia, Percutaneous Approach (ICD-10-PCS; principal; 2018-07-03)
PROC: 30233N1 Transfusion of Nonautologous Red Blood Cells into Peripheral Vein, Percutaneous Approach (ICD-10-PCS; 2018-07-03)
PROC: 30233N1 Transfusion of Nonautologous Red Blood Cells into Peripheral Vein, Percutaneous Approach (ICD-10-PCS; 2018-07-04)
PROC: 5A09357 Assistance with Respiratory Ventilation, Less than 24 Consecutive Hours, Continuous Positive Airway Pressure (ICD-10-PCS; 2018-07-05)
DX: F10.231 Alcohol dependence with withdrawal delirium (principal); J96.02 Acute respiratory failure with hypercapnia; Z68.42 Body mass index [BMI] 45.0-49.9, adult; E24.9 Cushing's syndrome, unspecified; L02.411 Cutaneous abscess of right axilla; E72.4 Disorders of ornithine metabolism; E66.01 Morbid (severe) obesity due to excess calories; F31.9 Bipolar disorder, unspecified; K70.40 Alcoholic hepatic failure without coma; D50.9 Iron deficiency anemia, unspecified; F17.210 Nicotine dependence, cigarettes, uncomplicated; F14.10 Cocaine abuse, uncomplicated; D63.8 Anemia in other chronic diseases classified elsewhere; F19.10 Other psychoactive substance abuse, uncomplicated; R01.1 Cardiac murmur, unspecified; R60.1 Generalized edema; F41.1 Generalized anxiety disorder; E80.6 Other disorders of bilirubin metabolism; T42.4X5A Adverse effect of benzodiazepines, initial encounter; T43.3X5A Adverse effect of phenothiazine antipsychotics and neuroleptics, initial encounter; Y92.239 Unspecified place in hospital as the place of occurrence of the external cause; Z91.14 Patient's other noncompliance with medication regimen; Z71.51 Drug abuse counseling and surveillance of drug abuser
CPT/HCPCS: 36415; 36430; 36600; 51702; 71045; 74018; 74177; 76705; 80048; 80053; 80074; 80307; 81001; 82024; 82040; 82140; 82533; 82607; 82728; 82746; 82803; 82962; 83540; 83550; 83605; 83690; 83735; 83880; 84443; 84484; 85025; 85027; 85045; 85610; 85730; 86850; 86900; 86901; 86920; 87040; 87070; 87075; 87077; 87086; 87186; 87205; 87491; 87591; 93005; 93010; 93306; 94660; 94762; 96365; 96375; 99285; A6266; J0690; J0696; J1200; J1644; J1756; J1940; J2060; J3230; J3475; J3480; J3490; J7030; J7050; J7620; P9016; P9047

== ENCOUNTER 2018-11-25 00:45 | Inpatient (IN) | payer MEDICAID ==
[2018-11-25] MEDS ORDERED: NORMAL SALINE 1000 ML 1,000 ML IV ONE ×2 (01:08→05:50)
[2018-11-25] MEDS ORDERED: VANCOMYCIN HCL INJ 1000 MG VIAL IV ONE (01:08)
[2018-11-25] MEDS ORDERED: PIPERACILLIN/TAZOBACTAM 4.5 GM VIAL IV ONE (01:08)
[2018-11-25] MEDS ORDERED: THIAMINE HCL 100 MG, FOLIC ACID 1 MG in NORMAL SALINE 250 ML IV ONE (01:13)
[2018-11-25] MEDS ORDERED: DIAZEPAM INJ 10 MG/2 ML DISP.SYRIN IV ONE (01:14)
--- NOTE | 2018-11-25 01:17 | ER Document Report ---
ED General - General Chief Complaint: Shortness Of Breath Stated Complaint: SHORTNESS OF BREATH Time Seen by Provider: 11/25/18 01:03 Mode of Arrival: Medic Information source: Patient, Emergency Med Personnel, [facility] Records Notes: 38-year-old female with alcohol dependence, bipolar disorder, tobacco use, anemia, remote history of prescription drug abuse presents via EMS from home with concern for abdominal distention, bilateral lower extremity pain and erythema as well as shortness of breath. Patient states that she noticed her lower extremity redness this morning. She states that her abdomen has progressively worsened and feels very tight. Patient does admit to continuous alcohol use and states her last drink was yesterday. She denies any current drug use. She denies any fever, chills, chest pain, cough. She does smoke 1 pack of cigarettes per day. She does not currently have a primary care physician. Patient did have an admission in June 2018 for similar symptoms. TRAVEL OUTSIDE OF THE [place] IN LAST 30 DAYS: No - HPI Onset: This morning Onset/Duration: Gradual, Persistent, Worse Quality of pain: Burning, Pressure, Throbbing Severity: Moderate Pain Level: 2 Associated symptoms: Leg swelling, Shortness of breath Exacerbated by: Movement Relieved by: Denies Similar symptoms previously: Yes Recently seen / treated by doctor: No - Related Data Allergies/Adverse Reactions: No Known Allergies Allergy (Verified 07/03/18 07:32) Past Medical History - General Information source: Patient, Emergency Med Personnel - Social History Smoking Status: Current Every Day Smoker Cigarette use (# per day): Yes - 15 Smoking Education Provided: Yes - Smoking cessation counseling was provided for 4 minutes at the bedside Frequency of alcohol use: Heavy Drug Abuse: Prescription drugs Lives with: Alone Family History: Reviewed & Not Pertinent Patient has suicidal ideation: No Patient has homicidal ideation: No Pulmonary Medical History: Reports: Hx Bronchitis Renal/ Medical History: Denies: Hx Peritoneal Dialysis Psychiatric Medical History: Reports: Hx Bipolar Disorder, Hx Depression Past Surgical History: Reports: Hx Section Review of Systems - Review of Systems Constitutional: Malaise, Weakness EENT: denies: Throat pain, Difficulty swallowing Cardiovascular: Dyspnea, Edema. denies: Chest pain, Palpitations Respiratory: Cough, Short of breath Gastrointestinal: Abdomen distended, Abdominal pain, Nausea Genitourinary: denies: Dysuria, Flank pain Musculoskeletal: Back pain Skin: Change in color, Rash Neurological/Psychological: denies: Headaches -: Yes All other systems reviewed and negative Physical Exam - Vital signs Vitals: Temp Pulse Resp BP Pulse Ox 98.8 F 95 18 151/94 H 93 11/25/18 00:53 11/25/18 00:53 11/25/18 00:53 11/25/18 00:53 11/25/18 00:53 - Notes Notes: PHYSICAL EXAMINATION: GENERAL: Unkept, no distress HEAD: Atraumatic, normocephalic. EYES: Pupils equal round and reactive to light, extraocular movements intact, conjunctiva are normal. ENT: Nares patent, oropharynx clear without exudates. Moist mucous membranes. NECK: Normal range of motion, supple without lymphadenopathy LUNGS: Diminished breath sounds bilaterally. No increased work of breathing. HEART: Regular rate and rhythm without murmurs ABDOMEN: Significantly distended abdomen with generalized tenderness when palpated. No guarding, no rebound. No masses appreciated. Female : deferred Musculoskeletal: Normal range of motion, no pitting or edema. No cyanosis. NEUROLOGICAL: Cranial nerves grossly intact. Normal speech, normal gait. Normal sensory, motor exams PSYCH: Normal mood, normal affect. SKIN: Significant erythema to the lower extremities bilaterally with extension from the groin down to the feet. This is a blanching, nonvesicular, nonpustular rash. Course - Re-evaluation Re-evalutation: Temp Pulse Resp BP Pulse Ox 98.8 F 95 18 151/94 H 93 11/25/18 00:53 11/25/18 00:53 11/25/18 00:53 11/25/18 00:53 11/25/18 00:53 Laboratory 11/25/18 11/25/18 11/25/18 01:58 01:58 01:58 WBC 6.5 RBC 4.61 Hgb 11.6 L Hct 36.6 MCV 79 L MCH 25.1 L MCHC 31.6 L RDW 22.1 H Plt Count 186 Seg Neutrophils % 72.0 Lymphocytes % 18.5 Monocytes % 8.1 Eosinophils % 0.8 Basophils % 0.6 Absolute Neutrophils 4.7 Absolute Lymphocytes 1.2 Absolute Monocytes 0.5 Absolute Eosinophils 0.1 Absolute Basophils 0.0 PT 16.4 H INR 1.31 VBG pH VBG pCO2 VBG HCO3 VBG Base Excess Sodium 135.5 L Potassium 3.9 Chloride 91 L Carbon Dioxide 35 H Anion Gap 10 BUN 8 Creatinine 0.88 Est GFR ( Amer) > 60 Est GFR (Non-Af Amer) > 60 Glucose 85 Lactic Acid Calcium 8.1 L Total Bilirubin 1.1 Direct Bilirubin 0.6 H Neonat Total Bilirubin Not Reportable Neonat Direct Bilirubin Not Reportable Neonat Indirect Bili Not Reportable AST 32 ALT 13 Alkaline Phosphatase 309 H Ammonia Troponin I Total Protein 7.5 Albumin 3.2 L Serum HCG, Qual Urine Color Urine Appearance Urine pH Ur Specific [place] Urine Protein Urine Glucose (UA) Urine Ketones Urine Blood Urine Nitrite Urine Bilirubin Urine Urobilinogen Ur Leukocyte Esterase Urine WBC (Auto) Urine RBC (Auto) U Hyaline Cast (Auto) Squamous Epi Cells Auto Urine Ascorbic Acid Salicylates < 1.0 L Urine Opiates Screen Urine Methadone Screen Acetaminophen < 10 L Ur Barbiturates Screen Ur Phencyclidine Scrn Ur Amphetamines Screen U Benzodiazepines Scrn Urine Cocaine Screen U Marijuana (THC) Screen Serum Alcohol 11/25/18 11/25/18 11/25/18 01:58 01:58 01:58 WBC RBC Hgb Hct MCV MCH MCHC RDW Plt Count Seg Neutrophils % Lymphocytes % Monocytes % Eosinophils % Basophils % Absolute Neutrophils Absolute Lymphocytes Absolute Monocytes Absolute Eosinophils Absolute Basophils PT INR VBG pH Cancelled VBG pCO2 Cancelled VBG HCO3 Cancelled VBG Base Excess Cancelled Sodium Potassium Chloride Carbon Dioxide Anion Gap BUN Creatinine Est GFR ( Amer) Est GFR (Non-Af Amer) Glucose Lactic Acid 4.2 H Calcium Total Bilirubin Direct Bilirubin Neonat Total Bilirubin Neonat Direct Bilirubin Neonat Indirect Bili AST ALT Alkaline Phosphatase Ammonia Troponin I < 0.012 Total Protein Albumin Serum HCG, Qual Urine Color Urine Appearance Urine pH Ur Specific [place] Urine Protein Urine Glucose (UA) Urine Ketones Urine Blood Urine Nitrite Urine Bilirubin Urine Urobilinogen Ur Leukocyte Esterase Urine WBC (Auto) Urine RBC (Auto) U Hyaline Cast (Auto) Squamous Epi Cells Auto Urine Ascorbic Acid Salicylates Urine Opiates Screen Urine Methadone Screen Acetaminophen Ur Barbiturates Screen Ur Phencyclidine Scrn Ur Amphetamines Screen U Benzodiazepines Scrn Urine Cocaine Screen U Marijuana (THC) Screen Serum Alcohol 11/25/18 11/25/18 11/25/18 01:58 01:58 02:09 WBC RBC Hgb Hct MCV MCH MCHC RDW Plt Count Seg Neutrophils % Lymphocytes % Monocytes % Eosinophils % Basophils % Absolute Neutrophils Absolute Lymphocytes Absolute Monocytes Absolute Eosinophils Absolute Basophils PT INR VBG pH VBG pCO2 VBG HCO3 VBG Base Excess Sodium Potassium Chloride Carbon Dioxide Anion Gap BUN Creatinine Est GFR ( Amer) Est GFR (Non-Af Amer) Glucose Lactic Acid Calcium Total Bilirubin Direct Bilirubin Neonat Total Bilirubin Neonat Direct Bilirubin Neonat Indirect Bili AST ALT Alkaline Phosphatase Ammonia 23.1 Troponin I Total Protein Albumin Serum HCG, Qual NEGATIVE Urine Color YELLOW Urine Appearance CLEAR Urine pH 5.0 Ur Specific [place] 1.006 Urine Protein NEGATIVE Urine Glucose (UA) NEGATIVE Urine Ketones NEGATIVE Urine Blood MODERATE H Urine Nitrite NEGATIVE Urine Bilirubin NEGATIVE Urine Urobilinogen NEGATIVE Ur Leukocyte Esterase SMALL H Urine WBC (Auto) 4 Urine RBC (Auto) 1 U Hyaline Cast (Auto) 1 Squamous Epi Cells Auto 1 Urine Ascorbic Acid NEGATIVE Salicylates Urine Opiates Screen Urine Methadone Screen Acetaminophen Ur Barbiturates Screen Ur Phencyclidine Scrn Ur Amphetamines Screen U Benzodiazepines Scrn Urine Cocaine Screen U Marijuana (THC) Screen Serum Alcohol 11/25/18 11/25/18 02:09 02:18 WBC RBC Hgb Hct MCV MCH MCHC RDW Plt Count Seg Neutrophils % Lymphocytes % Monocytes % Eosinophils % Basophils % Absolute Neutrophils Absolute Lymphocytes Absolute Monocytes Absolute Eosinophils Absolute Basophils PT INR VBG pH 7.41 VBG pCO2 55.7 VBG HCO3 34.6 H VBG Base Excess 8.2 Sodium Potassium Chloride Carbon Dioxide Anion Gap BUN Creatinine Est GFR ( Amer) Est GFR (Non-Af Amer) Glucose Lactic Acid Calcium Total Bilirubin Direct Bilirubin Neonat Total Bilirubin Neonat Direct Bilirubin Neonat Indirect Bili AST ALT Alkaline Phosphatase Ammonia Troponin I Total Protein Albumin Serum HCG, Qual Urine Color Urine Appearance Urine pH Ur Specific [place] Urine Protein Urine Glucose (UA) Urine Ketones Urine Blood Urine Nitrite Urine Bilirubin Urine Urobilinogen Ur Leukocyte Esterase Urine WBC (Auto) Urine RBC (Auto) U Hyaline Cast (Auto) Squamous Epi Cells Auto Urine Ascorbic Acid Salicylates Urine Opiates Screen NEGATIVE Urine Methadone Screen NEGATIVE Acetaminophen Ur Barbiturates Screen NEGATIVE Ur Phencyclidine Scrn NEGATIVE Ur Amphetamines Screen NEGATIVE U Benzodiazepines Scrn NEGATIVE Urine Cocaine Screen UNCONFIRMED POSITIVE U Marijuana (THC) Screen NEGATIVE Serum Alcohol Chest X-Ray 11/25/18 01:09 IMPRESSION: 1. No definite acute intrathoracic disease. 2. Stable elevation of the right hemidiaphragm. 3. Stable enlargement of the cardiac silhouette. Abdomen Ultrasound 11/25/18 01:12 IMPRESSION: No free fluid identified within the upper quadrants. Evaluation of the lower quadrants was limited due to patient positioning as per the technologist. Temp Pulse Resp BP Pulse Ox 98.8 F 95 18 151/94 H 97 11/25/18 00:53 11/25/18 00:53 11/25/18 00:53 11/25/18 00:53 11/25/18 03:31 Laboratory 11/25/18 11/25/18 11/25/18 01:58 01:58 01:58 WBC 6.5 RBC 4.61 Hgb 11.6 L Hct 36.6 MCV 79 L MCH 25.1 L MCHC 31.6 L RDW 22.1 H Plt Count 186 Seg Neutrophils % 72.0 Lymphocytes % 18.5 Monocytes % 8.1 Eosinophils % 0.8 Basophils % 0.6 Absolute Neutrophils 4.7 Absolute Lymphocytes 1.2 Absolute Monocytes 0.5 Absolute Eosinophils 0.1 Absolute Basophils 0.0 PT 16.4 H INR 1.31 VBG pH VBG pCO2 VBG HCO3 VBG Base Excess Sodium 135.5 L Potassium 3.9 Chloride 91 L Carbon Dioxide 35 H Anion Gap 10 BUN 8 Creatinine 0.88 Est GFR ( Amer) > 60 Est GFR (Non-Af Amer) > 60 Glucose 85 Lactic Acid Calcium 8.1 L Total Bilirubin 1.1 Direct Bilirubin 0.6 H Neonat Total Bilirubin Not Reportable Neonat Direct Bilirubin Not Reportable Neonat Indirect Bili Not Reportable AST 32 ALT 13 Alkaline Phosphatase 309 H Ammonia Troponin I Total Protein 7.5 Albumin 3.2 L Serum HCG, Qual Urine Color Urine Appearance Urine pH Ur Specific [place] Urine Protein Urine Glucose (UA) Urine Ketones Urine Blood Urine Nitrite Urine Bilirubin Urine Urobilinogen Ur Leukocyte Esterase Urine WBC (Auto) Urine RBC (Auto) U Hyaline Cast (Auto) Squamous Epi Cells Auto Urine Ascorbic Acid Salicylates < 1.0 L Urine Opiates Screen Urine Methadone Screen Acetaminophen < 10 L Ur Barbiturates Screen Ur Phencyclidine Scrn Ur Amphetamines Screen U Benzodiazepines Scrn Urine Cocaine Screen U Marijuana (THC) Screen Serum Alcohol 13 11/25/18 11/25/18 11/25/18 01:58 01:58 01:58 WBC RBC Hgb Hct MCV MCH MCHC RDW Plt Count Seg Neutrophils % Lymphocytes % Monocytes % Eosinophils % Basophils % Absolute Neutrophils Absolute Lymphocytes Absolute Monocytes Absolute Eosinophils Absolute Basophils PT INR VBG pH Cancelled VBG pCO2 Cancelled VBG HCO3 Cancelled VBG Base Excess Cancelled Sodium Potassium Chloride Carbon Dioxide Anion Gap BUN Creatinine Est GFR ( Amer) Est GFR (Non-Af Amer) Glucose Lactic Acid 4.2 H Calcium Total Bilirubin Direct Bilirubin Neonat Total Bilirubin Neonat Direct Bilirubin Neonat Indirect Bili AST ALT Alkaline Phosphatase Ammonia Troponin I < 0.012 Total Protein Albumin Serum HCG, Qual Urine Color Urine Appearance Urine pH Ur Specific [place] Urine Protein Urine Glucose (UA) Urine Ketones Urine Blood Urine Nitrite Urine Bilirubin Urine Urobilinogen Ur Leukocyte Esterase Urine WBC (Auto) Urine RBC (Auto) U Hyaline Cast (Auto) Squamous Epi Cells Auto Urine Ascorbic Acid Salicylates Urine Opiates Screen Urine Methadone Screen Acetaminophen Ur Barbiturates Screen Ur Phencyclidine Scrn Ur Amphetamines Screen U Benzodiazepines Scrn Urine Cocaine Screen U Marijuana (THC) Screen Serum Alcohol 11/25/18 11/25/18 11/25/18 01:58 01:58 02:09 WBC RBC Hgb Hct MCV MCH MCHC RDW Plt Count Seg Neutrophils % Lymphocytes % Monocytes % Eosinophils % Basophils % Absolute Neutrophils Absolute Lymphocytes Absolute Monocytes Absolute Eosinophils Absolute Basophils PT INR VBG pH VBG pCO2 VBG HCO3 VBG Base Excess Sodium Potassium Chloride Carbon Dioxide Anion Gap BUN Creatinine Est GFR ( Amer) Est GFR (Non-Af Amer) Glucose Lactic Acid Calcium Total Bilirubin Direct Bilirubin Neonat Total Bilirubin Neonat Direct Bilirubin Neonat Indirect Bili AST ALT Alkaline Phosphatase Ammonia 23.1 Troponin I Total Protein Albumin Serum HCG, Qual NEGATIVE Urine Color YELLOW Urine Appearance CLEAR Urine pH 5.0 Ur Specific [place] 1.006 Urine Protein NEGATIVE Urine Glucose (UA) NEGATIVE Urine Ketones NEGATIVE Urine Blood MODERATE H Urine Nitrite NEGATIVE Urine Bilirubin NEGATIVE Urine Urobilinogen NEGATIVE Ur Leukocyte Esterase SMALL H Urine WBC (Auto) 4 Urine RBC (Auto) 1 U Hyaline Cast (Auto) 1 Squamous Epi Cells Auto 1 Urine Ascorbic Acid NEGATIVE Salicylates Urine Opiates Screen Urine Methadone Screen Acetaminophen Ur Barbiturates Screen Ur Phencyclidine Scrn Ur Amphetamines Screen U Benzodiazepines Scrn Urine Cocaine Screen U Marijuana (THC) Screen Serum Alcohol 11/25/18 11/25/18 02:09 02:18 WBC RBC Hgb Hct MCV MCH MCHC RDW Plt Count Seg Neutrophils % Lymphocytes % Monocytes % Eosinophils % Basophils % Absolute Neutrophils Absolute Lymphocytes Absolute Monocytes Absolute Eosinophils Absolute Basophils PT INR VBG pH 7.41 VBG pCO2 55.7 VBG HCO3 34.6 H VBG Base Excess 8.2 Sodium Potassium Chloride Carbon Dioxide Anion Gap BUN Creatinine Est GFR ( Amer) Est GFR (Non-Af Amer) Glucose Lactic Acid Calcium Total Bilirubin Direct Bilirubin Neonat Total Bilirubin Neonat Direct Bilirubin Neonat Indirect Bili AST ALT Alkaline Phosphatase Ammonia Troponin I Total Protein Albumin Serum HCG, Qual Urine Color Urine Appearance Urine pH Ur Specific [place] Urine Protein Urine Glucose (UA) Urine Ketones Urine Blood Urine Nitrite Urine Bilirubin Urine Urobilinogen Ur Leukocyte Esterase Urine WBC (Auto) Urine RBC (Auto) U Hyaline Cast (Auto) Squamous Epi Cells Auto Urine Ascorbic Acid Salicylates Urine Opiates Screen NEGATIVE Urine Methadone Screen NEGATIVE Acetaminophen Ur Barbiturates Screen NEGATIVE Ur Phencyclidine Scrn NEGATIVE Ur Amphetamines Screen NEGATIVE U Benzodiazepines Scrn NEGATIVE Urine Cocaine Screen UNCONFIRMED POSITIVE U Marijuana (THC) Screen NEGATIVE Serum Alcohol Chest X-Ray 11/25/18 01:09 IMPRESSION: 1. No definite acute intrathoracic disease. 2. Stable elevation of the right hemidiaphragm. 3. Stable enlargement of the cardiac silhouette. Abdomen Ultrasound 11/25/18 01:12 IMPRESSION: No free fluid identified within the upper quadrants. Evaluation of the lower quadrants was limited due to patient positioning as per the technologist. Chest CT 11/25/18 03:35 IMPRESSION: 1. Endotracheal tube with tip in the right mainstem bronchus. Recommend repositioning. 2. Bilateral dependent airspace opacities may be related to atelectasis. Developing pneumonic process or pneumonitis could produce the same appearance. 3. Enlarged right axillary lymph nodes as well as a 2.7 cm inferior right breast nodule. These may be reactive however other etiology not excluded. Correlation with right breast/axillary ultrasound and possible mammography recommended. 4. Body wall anasarca. 5. Small amount of ascites. 6. Hepatic steatosis. 7. Cardiomegaly. This exam was performed according to our departmental dose-optimization program, which includes automated exposure control, adjustment of the mA and/or kV according to patient size and/or use of iterative reconstruction technique. Head CT 11/25/18 03:35 IMPRESSION: No acute intracranial findings. Abdomen/Pelvis CT 11/25/18 03:36 IMPRESSION: 1. Endotracheal tube with tip in the right mainstem bronchus. Recommend repositioning. 2. Bilateral dependent airspace opacities may be related to atelectasis. Developing pneumonic process or pneumonitis could produce the same appearance. 3. Enlarged right axillary lymph nodes as well as a 2.7 cm inferior right breast nodule. These may be reactive however other etiology not excluded. Correlation with right breast/axillary ultrasound and possible mammography recommended. 4. Body wall anasarca. 5. Small amount of ascites. 6. Hepatic steatosis. 7. Cardiomegaly. This exam was performed according to our departmental dose-optimization program, which includes automated exposure control, adjustment of the mA and/or kV according to patient size and/or use of iterative reconstruction technique. Temp Pulse Resp BP Pulse Ox 99.1 F 95 12 135/90 H 92 11/25/18 06:56 11/25/18 00:53 11/25/18 06:56 11/25/18 06:56 11/25/18 06:56 38-year-old female with alcohol dependence, bipolar disorder, tobacco use, anemia, remote history of prescription drug abuse presents via EMS from home with concern for abdominal distention, bilateral lower extremity pain and erythema as well as shortness of breath. Patient states that she noticed her lower extremity redness this morning. She states that her abdomen has progressively worsened and feels very tight. EMS reports that the patient was hypoxic upon their arrival. Patient is somnolent, unable to provide history. She is initially awake but quickly becomes more altered. Patient initially was placed on a nonrebreather without improvement of her hypoxia. Patient did receive breathing treatments without improvement. IV fluids, Vanco and Zosyn were administered for her extensive cellulitis. 11/25/18 03:07 Nurse reported that the patient had a desaturation down to 70%. This was with while on nasal cannula. Patient is becoming excessively somnolent. She was placed on BiPAP and blood gas was reviewed and surprisingly within normal limits. Patient is not currently intoxicated and urine drug screen shows cocaine. 11/25/18 03:40 Patient had persistent somnolence and began vomiting so the decision to intubate the patient was made. This was done using a glide scope. 11/25/18 04:02 Previous medical records show that patient had an admission for hypercapnic respiratory failure. 11/25/18 07:05 Patient has been accepted to the ICU by . Chest x-ray does show that the ET tube is at the right bronchus this will be retracted 2 cm. 11/25/18 07:06 11/25/18 07:22 Patient's daughter was contacted at [phone] she was made aware of the patient's critical condition and the fact that she will be admitted to the ICU and is currently on a ventilator. Patient's daughter's name is Sherron Molina - Vital Signs Vital signs: Temp Pulse Resp BP Pulse Ox 98.2 F 91 16 122/88 H 95 11/26/18 03:53 11/26/18 00:35 11/26/18 02:38 11/26/18 02:38 11/26/18 02:38 - Laboratory Result Diagrams: 11/25/18 01:58 11/26/18 00:31 Laboratory results interpreted by me: 11/25/18 11/25/18 11/25/18 01:58 01:58 01:58 Hgb 11.6 L MCV 79 L MCH 25.1 L MCHC 31.6 L RDW 22.1 H PT 16.4 H VBG HCO3 Sodium 135.5 L Chloride 91 L Carbon Dioxide 35 H Lactic Acid Calcium 8.1 L Direct Bilirubin 0.6 H Alkaline Phosphatase 309 H Albumin 3.2 L Urine Blood Ur Leukocyte Esterase Salicylates < 1.0 L Acetaminophen < 10 L 11/25/18 11/25/18 11/25/18 01:58 02:09 02:18 Hgb MCV MCH MCHC RDW PT VBG HCO3 34.6 H Sodium Chloride Carbon Dioxide Lactic Acid 4.2 H Calcium Direct Bilirubin Alkaline Phosphatase Albumin Urine Blood MODERATE H Ur Leukocyte Esterase SMALL H Salicylates Acetaminophen - Diagnostic Test Radiology reviewed: Image reviewed, Reports reviewed - EKG Interpretation by Me EKG shows normal: Sinus rhythm Rate: Normal Rhythm: NSR - Prolonged QTC When compared to previous EKG there are: No significant change Procedures - Intubation Orotracheal Time of Intubation: 03:37 Airway evaluation: Large tongue Mallampati Classification: Class 4 Medications: Etomidate, Ketamine, Pancuronium Intubation method: Orotracheal Blade type: Luis Enrique Blade size: 3 Equipment used: Glidescope ETT size: 7.5 ETT secured at: Lips ETT secured at (cm): 23 Breath Sounds after Intubation: Equal End tidal CO2 confirmed: Yes Critical Care Note - Critical Care Note Total time excluding time spent on procedures (mins): 45 - Minutes of critical care time spent in direct contact evaluating and reevaluating the patient, treating symptoms, reviewing labs and studies and speaking with family and consultants excluding any procedures Discharge - Discharge Clinical Impression: Substance abuse, Alcoholism, Cellulitis of both lower extremities, Cocaine use, Anasarca, Hepatic steatosis, Lactic acidosis, Risk for alcohol withdrawal Respiratory failure Qualifiers: Chronicity: acute Respiratory failure complication: hypoxia Qualified Code(s): J96.01 - Acute respiratory failure with hypoxia Alcohol dependence Qualifiers: Substance use status: unspecified alcohol-induced disorder Qualified Code(s): F10.29 - Alcohol dependence with unspecified alcohol-induced disorder Sepsis Qualifiers: Sepsis type: sepsis due to unspecified organism Sepsis acute organ dysfunction status: unspecified Qualified Code(s): A41.9 - Sepsis, unspecified organism Hematuria Qualifiers: Hematuria type: unspecified type Qualified Code(s): R31.9 - Hematuria, unspecified Condition: Critical Disposition: ADMITTED INPATIENT Admitting Provider: Ruthann (Hospitalist) Unit Admitted: ICU
[2018-11-25] MEDS ORDERED: IPRATROPIUM/ALBUTEROL 0.5-2.5 MG/3 ML AMPUL NEB ONE ×2 (01:58→02:59)
[2018-11-25 02:25] LABS: APPEARANCE,URINE CLEAR; BILIRUBIN,URINE NEGATIVE (NEGATIVE); COLOR,URINE YELLOW; GLUCOSE, URINE NEGATIVE (NEGATIVE); KETONES,URINE NEGATIVE (NEGATIVE); LEUKOCYTE ESTERASE,URINE SMALL (NEGATIVE); NITRITE,URINE NEGATIVE (NEGATIVE); PROTEIN,URINE NEGATIVE (NEGATIVE); URINE SPECIFIC GRAVITY 1.006; UROBILINOGEN,URINE NEGATIVE mg/dL (<2.0)
[2018-11-25 02:27] LABS: ABSOLUTE EOSINOPHILS # (AUTO) 0.1 10^3/uL (0.0-0.6); ABSOLUTE LYMPHOCYTES (AUTO) 1.2 10^3/uL (0.5-4.7); ABSOLUTE MONOCYTES (AUTO) 0.5 10^3/uL (0.1-1.4); ABSOLUTE NEUT (AUTO) 4.7 10^3/uL (1.7-8.2); BASOPHILS % (AUTO) 0.6 % (0-2); EOSINOPHILS % (AUTO) 0.8 % (0-6); HEMATOCRIT 36.6 % (36.0-47.0); HEMOGLOBIN 11.6 g/dL (12.0-15.5); LYMPHOCYTES % (AUTO) 18.5 % (13-45); MEAN CORPUSCULAR HEMOGLOBIN 25.1 pg (27.0-33.4); MEAN CORPUSCULAR HGB CONC 31.6 g/dL (32.0-36.0); MEAN CORPUSCULAR VOLUME 79 fl (80-97); MONOCYTES % (AUTO) 8.1 % (3-13); PLATELET COUNT 186 10^3/uL (150-450); RED BLOOD COUNT 4.61 10^6/uL (3.72-5.28); RED CELL DISTRIBUTION WIDTH 22.1 % (11.5-14.0); TOTAL CELLS COUNTED % (AUTO) 100 %; WHITE BLOOD COUNT 6.5 10^3/uL (4.0-10.5)
[2018-11-25 02:34] LABS: INTERNATIONAL RATION (INR) 1.31; PROTHROMBIN TIME 16.4 SEC (11.4-15.4)
[2018-11-25 02:39] LABS: ALBUMIN 3.2 g/dL (3.5-5.0); ALCOHOL 13 mg/dL (NONE DETECTED); ALKALINE PHOSPHATASE 309 U/L (38-126); ANION GAP 10 (5-19); ASPARTATE AMINO TRANSFERASE 32 U/L (14-36); BILIRUBIN,DIRECT 0.6 mg/dL (0.0-0.4); BILIRUBIN,TOTAL 1.1 mg/dL (0.2-1.3); BLOOD UREA NITROGEN 8 mg/dL (7-20); CALCIUM 8.1 mg/dL (8.4-10.2); CARBON DIOXIDE 35 mmol/L (22-30); CHLORIDE 91 mmol/L (98-107); GLUCOSE 85 mg/dL (75-110); POTASSIUM 3.9 mmol/L (3.6-5.0); TOTAL PROTEIN 7.5 g/dL (6.3-8.2)
[2018-11-25 02:43] LABS: ACETAMINOPHEN < 10 ug/mL (10-30); SALICYLATE < 1.0 mg/dL (2.0-20.0)
--- NOTE | 2018-11-25 02:43 | RADIOLOGY REPORT (SQ) ---
EXAM DESCRIPTION: X-ray single view chest. CLINICAL HISTORY: 38 years Female, sob COMPARISON: 07/02/2018 TECHNIQUE: Single portable x-ray view of the chest performed on 11/25/2018 at 2:25 AM FINDINGS: The lungs are well expanded and are grossly clear. There is elevation of the right hemidiaphragm. There is no evidence of a pneumothorax. The cardiac silhouette appears enlarged and may be accentuated by the portable technique. The mediastinal contours are normal. No acute osseous abnormality is identified. No focal soft tissue abnormalities are seen. Lines and tubes: None. IMPRESSION: 1. No definite acute intrathoracic disease. 2. Stable elevation of the right hemidiaphragm. 3. Stable enlargement of the cardiac silhouette.
[2018-11-25 02:45] LABS: URINE AMPHETAMINES SCREEN NEGATIVE; URINE BENZODIAZEPINES SCREEN NEGATIVE; URINE COCAINE SCREEN UNCONFIRMED POSITIVE; URINE MARIJUANA (THC) SCREEN NEGATIVE; URINE PHENCYCLIDINE SCREEN NEGATIVE
[2018-11-25 02:48] LABS: VENOUS BLOOD BASE EXCESS 8.2 mmol/L; VENOUS BLOOD HCO3 34.6 mmol/L (20-32); VENOUS BLOOD PCO2 55.7 mmHg (35-63); VENOUS BLOOD PH 7.41 (7.30-7.42)
[2018-11-25 02:52] LABS: URINE METHADONE SCREEN NEGATIVE
[2018-11-25 02:56] LABS: URINE BARBITURATES SCREEN NEGATIVE
[2018-11-25] MEDS ORDERED: ETOMIDATE INJ/PF 20 MG/10 ML SDV IV ONE ×2 (03:05→03:18)
[2018-11-25] MEDS ORDERED: KETAMINE HCL INJ 500 MG/10 ML VIAL ONE (03:07)
[2018-11-25] MEDS ORDERED: ONDANSETRON HCL INJ/PF 4 MG/2 ML SDV ONE (03:15)
--- NOTE | 2018-11-25 03:17 | RADIOLOGY REPORT (SQ) ---
EXAM: Ultrasound abdomen limited CLINICAL DATA: 38-year-old female with questionable ascites. TECHNICAL DATA: Limited sonographic imaging of the upper and lower quadrants was performed on 11/25/2018 at 2:46 AM. Comparison: 07/05/2018. FINDINGS: Sonographic imaging of the right upper and left upper quadrant was performed. Evaluation of the lower quadrants was limited due to patient positioning. No free fluid identified within the right upper quadrant or left upper quadrant. No definite mass lesions are seen. IMPRESSION: No free fluid identified within the upper quadrants. Evaluation of the lower quadrants was limited due to patient positioning as per the technologist.
[2018-11-25] MEDS ORDERED: FENTANYL CITRATE INJ/PF 100 MCG/2 ML AMPUL ONE ×2 (03:33→04:23)
[2018-11-25] MEDS ORDERED: MIDAZOLAM 2 MG/2 ML INJ ONE (04:01)
[2018-11-25] MEDS ORDERED: MIDAZOLAM HCL 50 MG/100 ML RTUINJ ONE (04:02)
--- NOTE | 2018-11-25 04:17 | RADIOLOGY REPORT (SQ) ---
EXAM DESCRIPTION: XR CHEST 1 VIEW COMPLETED DATE/TME: 11/25/2018 00:00 CLINICAL HISTORY: INTUBATION COMPARISON: 11/25/2018 FINDINGS: Single frontal view of the chest. Tubes and lines: NG tube with tip below the diaphragm. Endotracheal tube with tip at the level of the kirill. Leads overlie the chest. Cardiomediastinal silhouette: Stable Lungs: No consolidation, pneumothorax, or pleural effusion. Low lung volumes. Bones: Stable. Upper abdomen: Stable. IMPRESSION: 1. Interval placement of endotracheal tube with tip at the level of the kirill. Consider retracting 2 to 3 cm.
[2018-11-25] MEDS: PROPOFOL 1,000 MG/100 ML INFUS..BTL IV ONE ×2 (04:54→07:12)
[2018-11-25] MEDS ORDERED: PROPOFOL 1,000 MG/100 ML INFUS..BTL IV ONE (05:03)
--- NOTE | 2018-11-25 05:53 | RADIOLOGY REPORT (SQ) ---
CLINICAL HISTORY: ams COMPARISON: None. TECHNIQUE: CT HEAD WITHOUT IV CONTRAST on 11/25/2018 3:35 AM CDT This exam was performed according to our departmental dose-optimization program, which includes automated exposure control, adjustment of the mA and/or kV according to patient size and/or use of iterative reconstruction technique. FINDINGS: There is no acute hemorrhage, mass effect or midline shift. Iglesias-white differentiation is preserved. There is no hydrocephalus. There is no significant volume loss for age. The calvarium is intact. Orbits and globes are unremarkable. Right maxillary sinus is opacified. Mastoid air cells are clear. IMPRESSION: No acute intracranial findings.
--- NOTE | 2018-11-25 06:06 | RADIOLOGY REPORT (SQ) ---
EXAM DESCRIPTION: CT ABDOMEN PELVIS WITH IV CONTRAST, CT CHEST WITH IV CONTRAST COMPLETED DATE/TME: 11/25/2018 03:36 (accession [id number]), 11/25/2018 03:35 (accession [id number]) CLINICAL HISTORY: Anasarca COMPARISON: 07/03/2018 TECHNIQUE: CT of the chest, abdomen and pelvis performed following IV administration of 100 mL of Omnipaque 350. DLP: 2863.13 mGycm FINDINGS: Chest: Thyroid:No abnormalities of the visualized thyroid. Great Vessels:Great vessels have normal anatomic configuration. Thoracic Aorta:No abnormalities of the thoracic aorta identified. Pulmonary arteries:The main pulmonary artery is not dilated. Heart:No cardiomegaly, significant pericardial effusion, or coronary artery atherosclerosis Lymph Nodes: No enlarged mediastinal lymph nodes are identified. Enlarged right axillary lymph nodes. Esophagus: NG tube with tip in the stomach. Other: Nodule in the right inferior breast soft tissues measuring 2.7 x 2.1 cm. Diffuse body wall anasarca. Lungs: Bilateral dependent opacities. Pleura:No pleural effusion or pneumothorax. Trachea/Airways: Endotracheal tube with tip in the right mainstem bronchus. Abdomen: Liver: The liver has normal size and decreased density. No intrahepatic mass or biliary dilatation. Gallbladder: No calcified gallstones. Spleen, Pancreas, and Adrenal Glands: The spleen, pancreas, and adrenal glands are unremarkable. Kidneys: The kidneys have normal size and contour without evidence of solid mass or hydronephrosis. Vasculature: The aorta and IVC have normal caliber and position. The portal vein is patent. The proximal visceral and renal arteries are patent. Stomach: The stomach and duodenum have normal course. Other: No free intraperitoneal air. Moderate fat-containing umbilical hernia. Small amount of ascites. Pelvis: Bladder: Blank catheter in the urinary bladder. Bowel: No dilated loops of large or small bowel. Appendix: No definitely identified. Pelvis: Uterus is not enlarged. Bones: No destructive bone lesions identified. IMPRESSION: 1. Endotracheal tube with tip in the right mainstem bronchus. Recommend repositioning. 2. Bilateral dependent airspace opacities may be related to atelectasis. Developing pneumonic process or pneumonitis could produce the same appearance. 3. Enlarged right axillary lymph nodes as well as a 2.7 cm inferior right breast nodule. These may be reactive however other etiology not excluded. Correlation with right breast/axillary ultrasound and possible mammography recommended. 4. Body wall anasarca. 5. Small amount of ascites. 6. Hepatic steatosis. 7. Cardiomegaly. This exam was performed according to our departmental dose-optimization program, which includes automated exposure control, adjustment of the mA and/or kV according to patient size and/or use of iterative reconstruction technique.
[2018-11-25] MEDS ORDERED: ACETAMINOPHEN 650 MG SUPP.RECT PR PRN ×2 (06:23→06:39)
[2018-11-25] MEDS ORDERED: FOLIC ACID INJ 5 MG/1 ML 10 ML VIAL ONE (06:34)
[2018-11-25] MEDS ORDERED: NALBUPHINE HCL INJ 10 MG/1 ML AMPULE IV PRN (06:39)
[2018-11-25] MEDS ORDERED: HYDRALAZINE HCL INJ/PF 20 MG/1 ML SDV IV PRN (06:39)
[2018-11-25] MEDS ORDERED: THIAMINE HCL INJ 200 MG/2 ML VIAL ONE (06:40)
[2018-11-25] MEDS ORDERED: ROCURONIUM BROMIDE INJ 50 MG/5 ML VIAL IV ONE ×2 (07:04→11:08)
[2018-11-25] MEDS ORDERED: FENTANYL CITRATE INJ/PF 100 MCG/2 ML AMPUL IV ONE (07:04)
[2018-11-25] MEDS ORDERED: MIDAZOLAM 2 MG/2 ML INJ IV ONE (07:05)
[2018-11-25] MEDS ORDERED: MIDAZOLAM HCL 50 MG/100 ML RTUINJ IV PRN (07:05)
--- NOTE | 2018-11-25 07:43 | PDOC H&P ---
History of Present Illness Admission Date/PCP: 11/25/2018 06:15 No local PCP Patient complains of: Dyspnea History of Present Illness: ZANDER GIBBS is a 38 year old female who presented to the emergency room via EMS with dyspnea, abdominal distention and bilateral lower extremity pain and swelling with redness. Patient states that her symptoms have progressively worsened since she was discharged in June when she was seen for the same problems. The patient indicated that her lower extremities have been very swollen and she had noticed some redness on some of the areas of her lower extremities earlier in the day. She indicates that her abdominal swelling has also worsened progressively and has become extremely tight. She continues to drink alcohol every day and her last drink was on the night of 11/24/2018. She is not currently using any recreational drugs. She smokes 1 pack of cigarettes per day and continues to smoke despite her dyspnea. Patient became progressively m ore dyspneic shortly after her arrival in the emergency room while she was being given IV fluids and evaluated. Her respiratory status degraded to the point where she required intubation and ventilation via mechanical ventilator. She is going to be admitted to the ICU for further evaluation and treatment. Past Medical History Past Medical History: Past medical history, past surgical history, social history and family history are significantly limited by the patient's being intubated and require reliance on available records. Cardiac Medical History: Reports: Congestive Heart Failure - Anasarca Pulmonary Medical History: Reports: Bronchitis EENT Medical History: Denies: Cataracts, Ears Neurological Medical History: Denies: Multiple Sclerosis, Seizures Endocrine Medical History: Denies: Diabetes Mellitus Type 1, Diabetes Mellitus Type 2 Renal/ Medical History: Denies: Chronic Kidney Disease, Nephrolithiasis Malignancy Medical History: Reports: None GI Medical History: Denies: Cirrhosis, Hepatitis Musculoskeltal Medical History: Denies: Arthritis, Gout Skin Medical History: Denies: Eczema, Psoriasis Psychiatric Medical History: Reports: Alcohol Dependency, Bipolar Disorder, Depression, Substance Abuse, Tobacco Dependency Traumatic Medical History: Reports: None Hematology: Reports: Anemia Denies: Bleeding Tendencies Infectious Medical History: Reports: None Past Surgical History Past Surgical History: Past medical history, past surgical history, social history and family history are significantly limited by the patient's being intubated and require reliance on available records. Past Surgical History: Reports: Section Social History Information Source: [facility] Records Lives with: Alone Smoking Status: Current Every Day Smoker Frequency of Alcohol Use: Heavy - 24 beers per day with history of seizure Last Alcohol Use: 11/24/18 Hx Recreational Drug Use: Yes - No current recreational drug use Drugs: Cocaine Hx Prescription Drug Abuse: Yes Past Social History Note: Past medical history, past surgical history, social history and family history are significantly limited by the patient's being intubated and require reliance on available records. - Advance Directive Resuscitation Status: Full Code Family History Family History: CAD Family History: Past medical history, past surgical history, social history and family history are significantly limited by the patient's being intubated and require reliance on available records. Parental Family History Reviewed: Yes Children Family History Reviewed: No Sibling(s) Family History Reviewed.: Yes Medication/Allergy Home Medications: Acetaminophen [Tylenol 325 mg Tablet] 650 mg PO Q4HP PRN tablet 07/12/18 Famotidine [Pepcid 20 mg Tablet] 20 mg PO DAILY #30 tablet 07/12/18 Ferrous Sulfate [Feosol 325 mg Tablet] 325 mg PO DAILY #90 tablet 07/12/18 Folic Acid [Folvite 1 mg Tablet] 1 mg PO DAILY #90 tablet 07/12/18 Furosemide [Lasix 40 mg Tablet] 40 mg PO DAILY #60 tablet 07/12/18 Lactulose [Cephulac Syrup 20 gm/30 ml Udcup] 20 gm PO BID #60 udc 07/12/18 Mag Hydrox/Al Hydrox/Simeth [Maalox Plus Susp 30 Udcup] 30 ml PO Q6HP PRN udc 07/12/18 Multivitamin [Tab-A-Audie (Multiple Vitamin) Tablet] 1 tab PO DAILY #90 tablet 07/12/18 Nicotine [Nicoderm 14 mg/24 Hr Transdermal Patch] 1 patch TD DAILY #30 patch.td24 07/12/18 Spironolactone 100 mg PO DAILY #30 tablet 07/12/18 Thiamine HCl [Thiamine 100 mg Tablet] 100 mg PO QPM #90 tablet 07/12/18 Allergies/Adverse Reactions: No Known Allergies Allergy (Verified 07/03/18 07:32) Review of Systems ROS unobtainable: Due to endotracheal tube Physical Exam Vital Signs: Temp Pulse Resp BP Pulse Ox 98.8 F 95 18 151/94 H 100 11/25/18 00:53 11/25/18 00:53 11/25/18 00:53 11/25/18 00:53 11/25/18 05:15 Intake & Output 11/23/18 11/24/18 11/25/18 23:59 23:59 23:59 Weight 140 kg General appearance: PRESENT: no acute distress, morbidly obese, other - Sedated and ventilated with endotracheal tube and mechanical ventilation Head exam: PRESENT: atraumatic, normocephalic Eye exam: PRESENT: conjunctiva pink, periorbital swelling. ABSENT: conjunctival injection, scleral icterus Ear exam: PRESENT: normal external ear exam. ABSENT: bleeding, drainage Mouth exam: PRESENT: dry mucosa, neck supple, tongue midline, other - Endotracheal tube in good position Neck exam: PRESENT: JVD - Bilateral. ABSENT: thyromegaly, tracheal deviation Respiratory exam: PRESENT: decreased breath sounds - Markedly decreased breath sounds, rales - at both bases fine rales throughout the chest, symmetrical, other - On mechanical ventilation via endotracheal tube Cardiovascular exam: PRESENT: gallop - S4 gallop rhythm, RRR. ABSENT: clicks, rubs Pulses: PRESENT: normal radial pulses. ABSENT: normal dorsalis pedis pul - Dorsalis pedis pulses are dramatically reduced due to edema of the bilateral lower extremities Vascular exam: PRESENT: normal capillary refill. ABSENT: pallor - No known GI/Abdominal exam: PRESENT: normal bowel sounds, soft, other - Massive edema of abdominal wall noted with significant enhancement of abdominal stria Rectal exam: PRESENT: deferred Extremities exam: PRESENT: pedal edema, other - 4+ pitting edema to the mid back bilateral. ABSENT: joint swelling Musculoskeletal exam: ABSENT: deformity, dislocation Neurological exam: PRESENT: altered - Sedated for endotracheal intubation and ventilation Psychiatric exam: PRESENT: other - Not assessable due to endotracheal intubation Skin exam: PRESENT: dry, intact, rash - Eczematous splotchy areas on both lower extremities with leathery texture to the skin., warm. ABSENT: jaundice, urticaria Results Laboratory Results: 11/25/18 01:58 11/25/18 01:58 11/25/18 11/25/18 11/25/18 01:58 01:58 01:58 WBC 6.5 RBC 4.61 Hgb 11.6 L Hct 36.6 MCV 79 L MCH 25.1 L MCHC 31.6 L RDW 22.1 H Plt Count 186 Seg Neutrophils % 72.0 Lymphocytes % 18.5 Monocytes % 8.1 Eosinophils % 0.8 Basophils % 0.6 Absolute Neutrophils 4.7 Absolute Lymphocytes 1.2 Absolute Monocytes 0.5 Absolute Eosinophils 0.1 Absolute Basophils 0.0 VBG pH VBG pCO2 VBG HCO3 VBG Base Excess Sodium 135.5 L Potassium 3.9 Chloride 91 L Carbon Dioxide 35 H Anion Gap 10 BUN 8 Creatinine 0.88 Est GFR ( Amer) > 60 Est GFR (Non-Af Amer) > 60 Glucose 85 Lactic Acid 4.2 H Calcium 8.1 L Total Bilirubin 1.1 AST 32 Alkaline Phosphatase 309 H Ammonia Total Protein 7.5 Albumin 3.2 L Serum HCG, Qual Urine Color Urine Appearance Urine pH Ur Specific Clark Urine Protein Urine Glucose (UA) Urine Ketones Urine Blood Urine Nitrite Ur Leukocyte Esterase Urine WBC (Auto) Urine RBC (Auto) 11/25/18 11/25/18 11/25/18 01:58 01:58 01:58 WBC RBC Hgb Hct MCV MCH MCHC RDW Plt Count Seg Neutrophils % Lymphocytes % Monocytes % Eosinophils % Basophils % Absolute Neutrophils Absolute Lymphocytes Absolute Monocytes Absolute Eosinophils Absolute Basophils VBG pH Cancelled VBG pCO2 Cancelled VBG HCO3 Cancelled VBG Base Excess Cancelled Sodium Potassium Chloride Carbon Dioxide Anion Gap BUN Creatinine Est GFR ( Amer) Est GFR (Non-Af Amer) Glucose Lactic Acid Calcium Total Bilirubin AST Alkaline Phosphatase Ammonia 23.1 Total Protein Albumin Serum HCG, Qual NEGATIVE Urine Color Urine Appearance Urine pH Ur Specific Clark Urine Protein Urine Glucose (UA) Urine Ketones Urine Blood Urine Nitrite Ur Leukocyte Esterase Urine WBC (Auto) Urine RBC (Auto) 11/25/18 11/25/18 02:09 02:18 WBC RBC Hgb Hct MCV MCH MCHC RDW Plt Count Seg Neutrophils % Lymphocytes % Monocytes % Eosinophils % Basophils % Absolute Neutrophils Absolute Lymphocytes Absolute Monocytes Absolute Eosinophils Absolute Basophils VBG pH 7.41 VBG pCO2 55.7 VBG HCO3 34.6 H VBG Base Excess 8.2 Sodium Potassium Chloride Carbon Dioxide Anion Gap BUN Creatinine Est GFR ( Amer) Est GFR (Non-Af Amer) Glucose Lactic Acid Calcium Total Bilirubin AST Alkaline Phosphatase Ammonia Total Protein Albumin Serum HCG, Qual Urine Color YELLOW Urine Appearance CLEAR Urine pH 5.0 Ur Specific Clark 1.006 Urine Protein NEGATIVE Urine Glucose (UA) NEGATIVE Urine Ketones NEGATIVE Urine Blood MODERATE H Urine Nitrite NEGATIVE Ur Leukocyte Esterase SMALL H Urine WBC (Auto) 4 Urine RBC (Auto) 1 11/25/18 01:58 Troponin I < 0.012 Impressions: Chest X-Ray 11/25/18 01:09 IMPRESSION: 1. No definite acute intrathoracic disease. 2. Stable elevation of the right hemidiaphragm. 3. Stable enlargement of the cardiac silhouette. Abdomen Ultrasound 11/25/18 01:12 IMPRESSION: No free fluid identified within the upper quadrants. Evaluation of the lower quadrants was limited due to patient positioning as per the technologist. Chest CT 11/25/18 03:35 IMPRESSION: 1. Endotracheal tube with tip in the right mainstem bronchus. Recommend repositioning. 2. Bilateral dependent airspace opacities may be related to atelectasis. Developing pneumonic process or pneumonitis could produce the same appearance. 3. Enlarged right axillary lymph nodes as well as a 2.7 cm inferior right breast nodule. These may be reactive however other etiology not excluded. Correlation with right breast/axillary ultrasound and possible mammography recommended. 4. Body wall anasarca. 5. Small amount of ascites. 6. Hepatic steatosis. 7. Cardiomegaly. This exam was performed according to our departmental dose-optimization program, which includes automated exposure control, adjustment of the mA and/or kV according to patient size and/or use of iterative reconstruction technique. Head CT 11/25/18 03:35 IMPRESSION: No acute intracranial findings. Abdomen/Pelvis CT 11/25/18 03:36 IMPRESSION: 1. Endotracheal tube with tip in the right mainstem bronchus. Recommend repositioning. 2. Bilateral dependent airspace opacities may be related to atelectasis. Developing pneumonic process or pneumonitis could produce the same appearance. 3. Enlarged right axillary lymph nodes as well as a 2.7 cm inferior right breast nodule. These may be reactive however other etiology not excluded. Correlation with right breast/axillary ultrasound and possible mammography recommended. 4. Body wall anasarca. 5. Small amount of ascites. 6. Hepatic steatosis. 7. Cardiomegaly. This exam was performed according to our departmental dose-optimization program, which includes automated exposure control, adjustment of the mA and/or kV according to patient size and/or use of iterative reconstruction technique. Assessment and Plan - Diagnosis (1) Anasarca Is this a current diagnosis for this admission?: Yes Plan: Patient be treated with a Lasix infusion to obtain adequate diuresis to alleviate her anasarca. She will be monitored closely in the ICU. Serial CBCs, metabolic profiles and magnesium levels will be obtained. (2) Acute respiratory failure with hypoxia Is this a current diagnosis for this admission?: Yes Plan: Patient will be maintained in the ventilator with a consultation for Dr. Ayers today. Hopefully after diuresis for 24 hours patient can be extubated. She will continue to receive respiratory support to maintain adequate oxygen sat uration level. (3) Anemia Qualifiers: Anemia type: iron deficiency Iron deficiency anemia type: inadequate dietary iron intake Qualified Code(s): D50.8 - Other iron deficiency anemias Is this a current diagnosis for this admission?: Yes Plan: Patient's CBC will be monitored on a regular basis and her anemia will be treated as appropriate. (4) Alcohol dependence Qualifiers: Substance use status: unspecified alcohol-induced disorder Qualified Code(s): F10.29 - Alcohol dependence with unspecified alcohol-induced disorder Is this a current diagnosis for this admission?: Yes Plan: Patient has a history of seizures when she is withdrawing from alcohol. She will be treated with Valium 10 mg IV q. one hour as needed tremors were seizure- like activity. She will additionally have chlorpromazine 25 mg IV every 8 hours as needed for agitation or hallucinations. (5) Substance abuse Is this a current diagnosis for this admission?: Yes Plan: The patient will be monitored for any possible withdrawal effects of other recreational drugs/prescription medications. Urine drug screen is negative with the exception of cocaine. (6) Tobacco dependence Is this a current diagnosis for this admission?: Yes Plan: Patient will have a nicotine patch available for her use. - Time Time Spent with patient: 15-24 minutes Anticipated discharge: Home - Inpatient Certification Based on my medical assessment, after consideration of the patient's comorbidities, presenting symptoms, or acuity I expect that the services needed warrant INPATIENT care.: Yes I certify that my determination is in accordance with my understanding of Medicare's requirements for reasonable and necessary INPATIENT services [42 CFR 412.3e].: Yes Medical Necessity: Need Close Monitoring Due to Risk of Patient Decompensation, Need For Continuous Telemetry Monitoring, Risk of Complication if Not Cared For in Hospital, Other - Patient requires ventilation with an endotracheal tube and mechanical ventilator for support.
[2018-11-25 08:15] LABS: CREATINE KINASE MB 0.53 ng/mL (<4.55); NT PRO BNP 766 pg/mL (<125)
[2018-11-25 08:18] LABS: TROPONIN I < 0.012 ng/mL
[2018-11-25 08:21] LABS: FREE T3 3.43 pg/mL (2.77-5.27); FREE T4 (FREE THYROXINE) 0.9 ng/dL (0.78-2.19)
[2018-11-25] MEDS: LEVALBUTEROL HCL NEB 1.25 MG/3 ML AMPUL NEB SCH ×2 (08:46→16:14)
[2018-11-25] MEDS: IPRATROPIUM BROMIDE 0.02% NEB 0.5 MG/2.5 ML AMPUL NEB SCH ×2 (08:47→16:14)
[2018-11-25] MEDS: BUDESONIDE NEB 0.5 MG/2 ML AMPUL NEB SCH ×2 (08:47→20:34)
--- NOTE | 2018-11-25 08:57 | PDOC PROGRESS REPORT ---
Subjective Progress Note for:: 11/25/18 Subjective:: 38 year old female who presented to the emergency room via EMS with dyspnea, abdominal distention and bilateral lower extremity pain and swelling with redness. Patient states that her symptoms have progressively worsened since she was discharged in June when she was seen for the same problems. The patient indicated that her lower extremities have been very swollen and she had noticed some redness on some of the areas of her lower extremities earlier in the day. She indicates that her abdominal swelling has also worsened progressively and has become extremely tight. She continues to drink alcohol every day and her last drink was on the night of 11/24/2018. She is not currently using any recreational drugs. She smokes 1 pack of cigarettes per day and continues to smoke despite her dyspnea. Patient became progressively more dyspneic shortly after her arrival in the emergency room while she was being given IV fluids and evaluated. Her respiratory status degraded to the point where she required intubation and ventilation via mechanical ventilator. She is going to be admitted to the ICU for further evaluation and treatment. 11/25/[id number]-old female with multiple medical problems including congestive heart failure, chronic alcohol abuse, recreational drug use and urine drug screen is positive for cocaine, tobacco abuser came to the emergency room with increasing shortness of breath and questionable bilateral lower extremity cellulitis and lactic acid was 4.2 she went into respiratory failure in the emergency room status post intubation. Patient is properly sedated. Consultation with Dr. Chang was requested for central line consultation with Dr. Ayers was requested for management of the vent. She is going to continue to receive antibiotics and blood cultures are pending. Started on IV Protonix 40 mg twice a day, banana bag. Soft restraints order was placed. Condition is critical. Patient is going to receive a Lasix drip and to follow strict input output chart. Reason For Visit: ACUTE RESPIRATORY FAILURE WITH HYPOXIA Physical Exam Vital Signs: Temp Pulse Resp BP Pulse Ox 99.0 F 95 12 130/86 H 92 11/25/18 07:36 11/25/18 00:53 11/25/18 07:36 11/25/18 07:36 11/25/18 07:36 Intake & Output 11/24/18 11/25/18 11/26/18 06:59 06:59 06:59 Intake Total 1345.2 Balance 1345.2 Weight 140 kg General appearance: PRESENT: morbidly obese, other - Patient is properly sedated on ventilator. Head exam: PRESENT: atraumatic Eye exam: PRESENT: other - Toes are constricted but reactive. Ear exam: PRESENT: normal external ear exam Mouth exam: PRESENT: dry mucosa Teeth exam: PRESENT: poor dentation Neck exam: PRESENT: JVD Respiratory exam: PRESENT: crackles, decreased breath sounds Cardiovascular exam: PRESENT: RRR. ABSENT: diastolic murmur, rubs, systolic murmur GI/Abdominal exam: PRESENT: ascites, other - Abdomen was obese belly is stiff to Rectal exam: PRESENT: deferred Gentrourinary exam: PRESENT: indwelling catheter Neurological exam: PRESENT: other - Patient is under sedation. Skin exam: PRESENT: other - Bilateral lower extremity pedal edema and chronic stasis picture in both lower extremities. Results Laboratory Results: 11/25/18 01:58 11/25/18 01:58 11/25/18 11/25/18 11/25/18 01:58 01:58 01:58 WBC 6.5 RBC 4.61 Hgb 11.6 L Hct 36.6 MCV 79 L MCH 25.1 L MCHC 31.6 L RDW 22.1 H Plt Count 186 Seg Neutrophils % 72.0 Lymphocytes % 18.5 Monocytes % 8.1 Eosinophils % 0.8 Basophils % 0.6 Absolute Neutrophils 4.7 Absolute Lymphocytes 1.2 Absolute Monocytes 0.5 Absolute Eosinophils 0.1 Absolute Basophils 0.0 VBG pH VBG pCO2 VBG HCO3 VBG Base Excess Sodium 135.5 L Potassium 3.9 Chloride 91 L Carbon Dioxide 35 H Anion Gap 10 BUN 8 Creatinine 0.88 Est GFR ( Amer) > 60 Est GFR (Non-Af Amer) > 60 Glucose 85 Lactic Acid 4.2 H Calcium 8.1 L Total Bilirubin 1.1 AST 32 Alkaline Phosphatase 309 H Ammonia Total Protein 7.5 Albumin 3.2 L Free T4 Free T3 pg/mL Serum HCG, Qual Urine Color Urine Appearance Urine pH Ur Specific [place] Urine Protein Urine Glucose (UA) Urine Ketones Urine Blood Urine Nitrite Ur Leukocyte Esterase Urine WBC (Auto) Urine RBC (Auto) 11/25/18 11/25/18 11/25/18 01:58 01:58 01:58 WBC RBC Hgb Hct MCV MCH MCHC RDW Plt Count Seg Neutrophils % Lymphocytes % Monocytes % Eosinophils % Basophils % Absolute Neutrophils Absolute Lymphocytes Absolute Monocytes Absolute Eosinophils Absolute Basophils VBG pH Cancelled VBG pCO2 Cancelled VBG HCO3 Cancelled VBG Base Excess Cancelled Sodium Potassium Chloride Carbon Dioxide Anion Gap BUN Creatinine Est GFR ( Amer) Est GFR (Non-Af Amer) Glucose Lactic Acid Calcium Total Bilirubin AST Alkaline Phosphatase Ammonia 23.1 Total Protein Albumin Free T4 Free T3 pg/mL Serum HCG, Qual NEGATIVE Urine Color Urine Appearance Urine pH Ur Specific [place] Urine Protein Urine Glucose (UA) Urine Ketones Urine Blood Urine Nitrite Ur Leukocyte Esterase Urine WBC (Auto) Urine RBC (Auto) 11/25/18 11/25/18 11/25/18 02:09 02:18 07:39 WBC RBC Hgb Hct MCV MCH MCHC RDW Plt Count Seg Neutrophils % Lymphocytes % Monocytes % Eosinophils % Basophils % Absolute Neutrophils Absolute Lymphocytes Absolute Monocytes Absolute Eosinophils Absolute Basophils VBG pH 7.41 VBG pCO2 55.7 VBG HCO3 34.6 H VBG Base Excess 8.2 Sodium Potassium Chloride Carbon Dioxide Anion Gap BUN Creatinine Est GFR ( Amer) Est GFR (Non-Af Amer) Glucose Lactic Acid Calcium Total Bilirubin AST Alkaline Phosphatase Ammonia Total Protein Albumin Free T4 0.90 Free T3 pg/mL 3.43 Serum HCG, Qual Urine Color YELLOW Urine Appearance CLEAR Urine pH 5.0 Ur Specific [place] 1.006 Urine Protein NEGATIVE Urine Glucose (UA) NEGATIVE Urine Ketones NEGATIVE Urine Blood MODERATE H Urine Nitrite NEGATIVE Ur Leukocyte Esterase SMALL H Urine WBC (Auto) 4 Urine RBC (Auto) 1 11/25/18 11/25/18 07:39 07:39 WBC RBC Hgb Hct MCV MCH MCHC RDW Plt Count Seg Neutrophils % Lymphocytes % Monocytes % Eosinophils % Basophils % Absolute Neutrophils Absolute Lymphocytes Absolute Monocytes Absolute Eosinophils Absolute Basophils VBG pH VBG pCO2 VBG HCO3 VBG Base Excess Sodium Potassium Chloride Carbon Dioxide Anion Gap BUN Creatinine Est GFR ( Amer) Est GFR (Non-Af Amer) Glucose Lactic Acid Cancelled 2.2 H Calcium Total Bilirubin AST Alkaline Phosphatase Ammonia Total Protein Albumin Free T4 Free T3 pg/mL Serum HCG, Qual Urine Color Urine Appearance Urine pH Ur Specific [place] Urine Protein Urine Glucose (UA) Urine Ketones Urine Blood Urine Nitrite Ur Leukocyte Esterase Urine WBC (Auto) Urine RBC (Auto) 11/25/18 11/25/18 11/25/18 01:58 07:39 07:39 Creatine Kinase 50 CK-MB (CK-2) 0.53 Troponin I < 0.012 < 0.012 NT-Pro-B Natriuret Pep 766 H Impressions: Chest X-Ray 11/25/18 01:09 IMPRESSION: 1. No definite acute intrathoracic disease. 2. Stable elevation of the right hemidiaphragm. 3. Stable enlargement of the cardiac silhouette. Abdomen Ultrasound 11/25/18 01:12 IMPRESSION: No free fluid identified within the upper quadrants. Evaluation of the lower quadrants was limited due to patient positioning as per the technologist. Chest CT 11/25/18 03:35 IMPRESSION: 1. Endotracheal tube with tip in the right mainstem bronchus. Recommend repositioning. 2. Bilateral dependent airspace opacities may be related to atelectasis. Developing pneumonic process or pneumonitis could produce the same appearance. 3. Enlarged right axillary lymph nodes as well as a 2.7 cm inferior right breast nodule. These may be reactive however other etiology not excluded. Correlation with right breast/axillary ultrasound and possible mammography recommended. 4. Body wall anasarca. 5. Small amount of ascites. 6. Hepatic steatosis. 7. Cardiomegaly. This exam was performed according to our departmental dose-optimization program, which includes automated exposure control, adjustment of the mA and/or kV according to patient size and/or use of iterative reconstruction technique. Head CT 11/25/18 03:35 IMPRESSION: No acute intracranial findings. Abdomen/Pelvis CT 11/25/18 03:36 IMPRESSION: 1. Endotracheal tube with tip in the right mainstem bronchus. Recommend repositioning. 2. Bilateral dependent airspace opacities may be related to atelectasis. Developing pneumonic process or pneumonitis could produce the same appearance. 3. Enlarged right axillary lymph nodes as well as a 2.7 cm inferior right breast nodule. These may be reactive however other etiology not excluded. Correlation with right breast/axillary ultrasound and possible mammography recommended. 4. Body wall anasarca. 5. Small amount of ascites. 6. Hepatic steatosis. 7. Cardiomegaly. This exam was performed according to our departmental dose-optimization program, which includes automated exposure control, adjustment of the mA and/or kV according to patient size and/or use of iterative reconstruction technique. Assessment and Plan - Diagnosis (1) Acute respiratory failure with hypoxia Is this a current diagnosis for this admission?: Yes Plan: Patient will be maintained in the ventilator with a consultation for Dr. Ayers today. Hopefully after diuresis for 24 hours patient can be extubated. She will continue to receive respiratory support to maintain adequate oxygen saturation level. 11/25-patient admitted with acute respiratory failure with hypoxia on mechanical ventilation. Patient is going to be on lasix drip. Strict input output will be implemented. NG tube is in place and Blank catheter in place. Presently on IV Zosyn and vancomycin plan is to continue the antibiotic therapy and blood cultures are pending. Consultation with Dr. Ayers was requested. Overall prognosis poor condition is critical. Chest x-ray suggestive of a pneumonia most likely community-acquired pneumonia most likely gram-positive or ganisms responsible. (2) Alcohol dependence Qualifiers: Substance use status: unspecified alcohol-induced disorder Qualified Code(s): F10.29 - Alcohol dependence with unspecified alcohol-induced disorder Is this a current diagnosis for this admission?: Yes Plan: Patient has a history of seizures when she is withdrawing from alcohol. She will be treated with Valium 10 mg IV q. one hour as needed tremors were seizure- like activity. She will additionally have chlorpromazine 25 mg IV every 8 hours as needed for agitation or hallucinations. 11/25/2018-patient has a history of seizures during the alcohol withdrawal process. Patient is presently on Valium 10 mg IV q. hours and also under Thorazine 25 mg IV every 8 hours. Plan is to continue the present management a nd start her on a banana bag. Place her on Ativan 1 mg IV every 4 as needed as a precaution for seizures. (4) Morbid obesity with BMI of 40.0-44.9, adult Is this a current diagnosis for this admission?: No Plan: 11/25/2018-patient is morbidly obese while she is extubated we are going to discuss about her diet exercise weight loss and complex with medications. (5) Cocaine use Is this a current diagnosis for this admission?: Yes Plan: 11/25/2018-urine drug screen is positive for cocaine. (6) Anasarca Is this a current diagnosis for this admission?: Yes Plan: Patient be treated with a Lasix infusion to obtain adequate diuresis to alleviate her anasarca. She will be monitored closely in the ICU. Serial CBCs, metabolic profiles and magnesium levels will be obtained. 11/25/2018-the examination of the body indicates she might have anasarca. Albumin is 3.2. To give albumin 50 g today it may help in diuresis. (7) Tobacco dependence Is this a current diagnosis for this admission?: Yes Plan: Patient will have a nicotine patch available for her use. (8) CHF (congestive heart failure) Is this a current diagnosis for this admission?: No Plan: 11/25/2018-patient has history of congestive heart failure and has bilateral extensive pedal edema and cardiomegaly on the x-ray and ascites. Most likely she has chronic diastolic heart failure. (9) Anemia Qualifiers: Anemia type: iron deficiency Iron deficiency anemia type: inadequate dietary iron intake Qualified Code(s): D50.8 - Other iron deficiency anemias Is this a current diagnosis for this admission?: Yes Plan: Patient's CBC will be monitored on a regular basis and her anemia will be treated as appropriate. - Time Time Spent with patient: 25-34 minutes Medications reviewed and adjusted accordingly: Yes Anticipated discharge: Home
[2018-11-25 09:10] LABS: ARTERIAL BLOOD BASE EXCESS 7.5 mmol/L; ARTERIAL BLOOD H2CO3 1.73 mmol/L (1.05-1.35); ARTERIAL BLOOD HCO3 34.2 mmol/L (20-24); ARTERIAL BLOOD O2 SATURATION 93.8 % (94-98); ARTERIAL BLOOD PCO2 57.6 mmHg (35-45); ARTERIAL BLOOD PH 7.39 (7.35-7.45); ARTERIAL BLOOD PO2 71.1 mmHg (80-100); ARTERIAL BLOOD TOTAL CO2 35.9 mmol/L (21-25)
[2018-11-25 09:12] LABS: ARTERIAL BLOOD FIO2 40%
[2018-11-25] MEDS: MIDAZOLAM HCL 50 MG/100 ML RTUINJ IV PRN (09:30)
[2018-11-25] MEDS: PROPOFOL 1,000 MG/100 ML INFUS..BTL IV PRN ×4 (09:31→20:16)
[2018-11-25] MEDS: NORMAL SALINE 250 ML with FUROSEMIDE 250 MG IV PRN ×4 (09:34→23:00)
[2018-11-25] MEDS: ALBUMIN HUMAN 12.5 GM/50 ML RTUINJ IV SCH ×4 (09:34→13:11)
[2018-11-25] MEDS: NICOTINE 21 MG/24 HR PATCH.TD24 TD PRN (09:35)
[2018-11-25] MEDS: PANTOPRAZOLE SODIUM 40 MG VIAL IV SCH ×2 (09:35→21:24)
--- NOTE | 2018-11-25 09:39 | EKG REPORT ---
SEVERITY:- BORDERLINE ECG - SINUS RHYTHM BORDERLINE T ABNORMALITIES, ANTERIOR LEADS BORDERLINE PROLONGED QT INTERVAL : Confirmed by: Jaspal Perez MD 25-Nov-2018 09:39:03
[2018-11-25] MEDS ORDERED: HYDROCHLOROTHIAZIDE 25 MG TABLET PO SCH (10:00)
[2018-11-25] MEDS ORDERED: CARVEDILOL 12.5 MG TABLET PO SCH (10:00)
[2018-11-25] MEDS ORDERED: FAMOTIDINE INJ/PF 20 MG/2 ML SDV IV SCH (10:00)
[2018-11-25] MEDS ORDERED: MAGNESIUM OXIDE 400 MG TABLET PO SCH (10:00)
[2018-11-25] MEDS ORDERED: POTASSIUM CHLORIDE 10 MEQ CAPSULE.ER PO SCH (10:00)
[2018-11-25] MEDS ORDERED: LISINOPRIL 10 MG TABLET PO SCH (10:00)
--- NOTE | 2018-11-25 10:23 | RADIOLOGY REPORT (SQ) ---
EXAM DESCRIPTION: CHEST SINGLE VIEW COMPLETED DATE/TIME: 11/25/2018 9:42 am REASON FOR STUDY: resp failure/et tube positioning COMPARISON: Earlier exam at the 0340 hours TECHNIQUE: Single frontal radiographic view of the chest acquired. NUMBER OF VIEWS: One view. LIMITATIONS: None. FINDINGS: LUNGS AND PLEURA: No pneumothorax. Increasing left basilar consolidation - pleural effusi on. MEDIASTINUM AND HILAR STRUCTURES: Stable. HEART AND VASCULAR STRUCTURES: Stable. BONES: No acute findings. HARDWARE: Endotracheal tube tip remains at the level of the kirill. NG tube is present. OTHER: No other significant finding. IMPRESSION: Endotracheal tube tip remains at the level of the kirill. Increasing left basilar cons olidation - pleural effusion. TECHNICAL DOCUMENTATION: JOB ID: [id number] [id number] 2010 [employer]- All Rights Reserved Reading location - IP/workstation name: [email or web address]
[2018-11-25] MEDS: PANTOT AC/MIN OIL/PET HY-PHL OINT 50 GM TOP SCH ×2 (11:59→21:24)
[2018-11-25 12:46] LABS: CREATINE KINASE MB 0.37 ng/mL (<4.55)
[2018-11-25 12:48] LABS: TROPONIN I < 0.012 ng/mL
[2018-11-25] MEDS: HEPARIN SOD (PORCINE) 5,000 UNIT/ML 1 ML VIAL SUBCUT SCH ×2 (13:14→21:24)
[2018-11-25 13:56] LABS: ANION GAP 6 (5-19); BLOOD UREA NITROGEN 9 mg/dL (7-20); CALCIUM 7.7 mg/dL (8.4-10.2); CARBON DIOXIDE 35 mmol/L (22-30); CHLORIDE 94 mmol/L (98-107); CREATINE KINASE 37 U/L (30-135); GLUCOSE 74 mg/dL (75-110); POTASSIUM 3.8 mmol/L (3.6-5.0)
[2018-11-25] MEDS: NORMAL SALINE 1000 ML 1,000 ML with POTASSIUM CHLORIDE 20 MEQ, MAGNESIUM SULFATE 8 MEQ,... IV SCH ×5 (17:25)
[2018-11-25] MEDS: PHARMACY COMMUNICATION ORDER MC SCH (17:25)
[2018-11-25] MEDS ORDERED: [UNRECOGNIZED DRUG - OTHER] IV SCH ×5 (18:00)
[2018-11-25] MEDS ORDERED: 1/4 NORMAL SALINE IV SCH ×5 (18:00)
[2018-11-25] MEDS ORDERED: DEXTROSE 5% IV SCH ×5 (18:00)
[2018-11-25] MEDS ORDERED: POTASSIUM CHLORIDE IV SCH ×5 (18:00)
[2018-11-25 18:47] LABS: ANION GAP 6 (5-19); BLOOD UREA NITROGEN 9 mg/dL (7-20); CALCIUM 7.8 mg/dL (8.4-10.2); CARBON DIOXIDE 37 mmol/L (22-30); CHLORIDE 93 mmol/L (98-107); CREATINE KINASE 29 U/L (30-135); GLUCOSE 71 mg/dL (75-110); POTASSIUM 3.7 mmol/L (3.6-5.0)
[2018-11-25 19:03] LABS: CREATINE KINASE MB < 0.22 ng/mL (<4.55); TROPONIN I < 0.012 ng/mL
--- NOTE | 2018-11-25 19:59 | Progress Note ---
Provider Note Provider Note: called to see pt regarding central line insertion. The pt already had 3 working IV's. There was noone available to provide consent for the c-line except her 16 y/o daughter. I placed a left forearm IV, for a total of 4 working IV's. She is not on pressors. I will wait for an adult family member to give informed consent before placing a central venous catheter. There is no urgent or emergent indication at present.
[2018-11-25 21:16] LABS: ARTERIAL BLOOD BASE EXCESS 11.4 mmol/L; ARTERIAL BLOOD FIO2 40%; ARTERIAL BLOOD H2CO3 1.33 mmol/L (1.05-1.35); ARTERIAL BLOOD HCO3 35.4 mmol/L (20-24); ARTERIAL BLOOD O2 SATURATION 92.1 % (94-98); ARTERIAL BLOOD PCO2 44.2 mmHg (35-45); ARTERIAL BLOOD PH 7.52 (7.35-7.45); ARTERIAL BLOOD PO2 56.7 mmHg (80-100); ARTERIAL BLOOD TOTAL CO2 36.8 mmol/L (21-25)
[2018-11-25] MEDS ORDERED: CLONAZEPAM 1 MG TABLET PO SCH (22:00)
[2018-11-25] MEDS ORDERED: TRAZODONE HCL 50 MG TABLET PO SCH (22:00)
[2018-11-25] MEDS ORDERED: SERTRALINE HCL 50 MG TABLET PO SCH (22:00)
[2018-11-25] MEDS ORDERED: FUROSEMIDE INJ/PF 100 MG/10 ML SDV ONE (22:51)
[2018-11-26] MEDS: MIDAZOLAM HCL 50 MG/100 ML RTUINJ IV PRN ×4 (00:28→22:47)
[2018-11-26] MEDS: PROPOFOL 1,000 MG/100 ML INFUS..BTL IV PRN ×8 (00:29→23:45)
[2018-11-26] MEDS: IPRATROPIUM BROMIDE 0.02% NEB 0.5 MG/2.5 ML AMPUL NEB SCH ×3 (00:34→16:09)
[2018-11-26] MEDS: LEVALBUTEROL HCL NEB 1.25 MG/3 ML AMPUL NEB SCH ×3 (00:34→16:09)
[2018-11-26 00:54] LABS: ANION GAP 6 (5-19); BLOOD UREA NITROGEN 10 mg/dL (7-20); CALCIUM 7.6 mg/dL (8.4-10.2); CARBON DIOXIDE 37 mmol/L (22-30); CHLORIDE 94 mmol/L (98-107); GLUCOSE 77 mg/dL (75-110); POTASSIUM 3.6 mmol/L (3.6-5.0)
[2018-11-26 04:06] LABS: ARTERIAL BLOOD BASE EXCESS 14.3 mmol/L; ARTERIAL BLOOD H2CO3 1.34 mmol/L (1.05-1.35); ARTERIAL BLOOD HCO3 38.2 mmol/L (20-24); ARTERIAL BLOOD O2 SATURATION 94.6 % (94-98); ARTERIAL BLOOD PCO2 44.5 mmHg (35-45); ARTERIAL BLOOD PH 7.55 (7.35-7.45); ARTERIAL BLOOD PO2 63.7 mmHg (80-100); ARTERIAL BLOOD TOTAL CO2 39.6 mmol/L (21-25)
[2018-11-26 04:07] LABS: ARTERIAL BLOOD FIO2 50%
[2018-11-26 04:20] LABS: HEMATOCRIT 36.2 % (36.0-47.0); HEMOGLOBIN 11.5 g/dL (12.0-15.5); MEAN CORPUSCULAR HEMOGLOBIN 24.9 pg (27.0-33.4); MEAN CORPUSCULAR HGB CONC 31.7 g/dL (32.0-36.0); MEAN CORPUSCULAR VOLUME 79 fl (80-97); PLATELET COUNT 139 10^3/uL (150-450); RED CELL DISTRIBUTION WIDTH 21.5 % (11.5-14.0); WHITE BLOOD COUNT 5.2 10^3/uL (4.0-10.5)
[2018-11-26 04:29] LABS: ALBUMIN 2.7 g/dL (3.5-5.0); ALKALINE PHOSPHATASE 240 U/L (38-126); ANION GAP 7 (5-19); ASPARTATE AMINO TRANSFERASE 21 U/L (14-36); BILIRUBIN,DIRECT 1.1 mg/dL (0.0-0.4); BILIRUBIN,TOTAL 1.7 mg/dL (0.2-1.3); BLOOD UREA NITROGEN 10 mg/dL (7-20); CALCIUM 7.6 mg/dL (8.4-10.2); CARBON DIOXIDE 36 mmol/L (22-30); CHLORIDE 93 mmol/L (98-107); GLUCOSE 72 mg/dL (75-110); POTASSIUM 3.4 mmol/L (3.6-5.0); TOTAL PROTEIN 6.5 g/dL (6.3-8.2)
[2018-11-26] MEDS ORDERED: MAGNESIUM SULFATE/D5W 1 GM/100 ML RTUPB IV ONE (04:47)
[2018-11-26] MEDS: MAGNESIUM SULFATE/D5W 1 GM/100 ML RTUPB IV SCH ×3 (05:00→07:02)
[2018-11-26] MEDS: POTASSIUM CHLORIDE 20 MEQ/50 ML RTU IV SCH ×4 (05:51→22:44)
[2018-11-26] MEDS: HEPARIN SOD (PORCINE) 5,000 UNIT/ML 1 ML VIAL SUBCUT SCH ×3 (05:52→21:25)
[2018-11-26] MEDS ORDERED: MAGNESIUM SULFATE 4 GM/100 ML RTUPB IV ONE (07:57)
[2018-11-26] MEDS: BUDESONIDE NEB 0.5 MG/2 ML AMPUL NEB SCH ×2 (07:58→19:43)
--- NOTE | 2018-11-26 09:01 | PDOC PROGRESS REPORT ---
Subjective Subjective:: 11/26/201838 year old female who presented to the emergency room via EMS with dyspnea, abdominal distention and bilateral lower extremity pain and swelling with redness. Patient states that her symptoms have progressively worsened since she was discharged in June when she was seen for the same problems. The patient indicated that her lower extremities have been very swollen and she had noticed some redness on some of the areas of her lower extremities earlier in the day. She indicates that her abdominal swelling has also worsened progressively and has become extremely tight. She continues to drink alcohol every day and her last drink was on the night of 11/24/2018. She is not currently using any recreational drugs. She smokes 1 pack of cigarettes per day and continues to smoke despite her dyspnea. Patient became progressively more dyspneic shortly after her arrival in the emergency room while she was being given IV fluids and evaluated. Her respiratory status degraded to the point where she required intubation and ventilation via mechanical ventilator. She is going to be admitted to the ICU for further evaluation and treatment. 11/25/[id number]-plzm-old female with multiple medical problems including congestive heart failure, chronic alcohol abuse, recreational drug use and urine drug screen is positive for cocaine, tobacco abuser came to the emergency room with increasing shortness of breath and questionable bilateral lower extremity cellulitis and lactic acid was 4.2 she went into respiratory failure in the emergency room status post intubation. Patient is properly sedated. Consultation with Dr. Chang was requested for central line consultation with Dr. Ayers was requested for management of the vent. She is going to continue to receive antibiotics and blood cultures are pending. Started on IV Protonix 40 mg twice a day, banana bag. Soft restraints order was placed. Condition is critical. Patient is going to receive a Lasix drip and to follow strict input output chart. 11/26/[id number]-lfov-old female admitted with acute on chronic respiratory failure status post intubation. Chest x-ray this morning indicates is possible right lower lobe pneumonia. Started on IV Zosyn and vancomycin blood cultures are negative so far. Patient is on mechanical ventilation on SIMV with 50% oxygen PEEP of 5 tidal volume of 500 respiratory rate of 16. She is on to prevent on Versed for sedation. CT scan of the chest at the time of admission shows lymph nodes under the right breast. Recommendation from the radiologist is to arrange for mammogram as an outpatient. Patient's potassium and magnesium are low today electrolyte protocol was implemented. Albumin is 2.7 to give IV albumin. Condition is critical prognosis is poor. I spoke to the daughter who is 16-year-old and she told me she does not have any family members in town. once adult family members are available to talk all explained to them the patient's condition. Reason For Visit: ACUTE RESPIRATORY FAILURE WITH HYPOXIA Physical Exam Vital Signs: Temp Pulse Resp BP Pulse Ox 98.4 F 94 16 124/75 92 11/26/18 08:00 11/26/18 08:00 11/26/18 08:00 11/26/18 08:00 11/26/18 08:00 Intake & Output 11/25/18 11/26/18 11/27/18 06:59 06:59 06:59 Intake Total 2565.2 1552 Output Total 5950 700 Balance -3384.8 852 Weight 140 kg 139 kg General appearance: PRESENT: no acute distress, morbidly obese, other - Intubated under sedation. Head exam: PRESENT: atraumatic Eye exam: PRESENT: PERRLA Neck exam: ABSENT: carotid bruit, JVD, lymphadenopathy, thyromegaly Respiratory exam: PRESENT: crackles, decreased breath sounds, wheezes Cardiovascular exam: PRESENT: RRR. ABSENT: diastolic murmur, rubs, systolic mur mur GI/Abdominal exam: PRESENT: ascites, other - Abdomen is obese hard to palpate because of the edema bowel sounds are present. NG tube is in place. Rectal exam: PRESENT: deferred Gentrourinary exam: PRESENT: indwelling catheter Extremities exam: PRESENT: +2 edema, other - Erythema present in both lower extremities. Neurological exam: PRESENT: other - Patient is intubated under sedation unable to do the neuro exam. Results Laboratory Results: 11/26/18 03:32 11/26/18 03:32 11/25/18 11/25/18 11/25/18 08:58 12:03 12:03 WBC RBC Hgb Hct MCV MCH MCHC RDW Plt Count Carbonic Acid 1.73 H HCO3/H2CO3 Ratio 19:1 ABG pH 7.39 ABG pCO2 57.6 H ABG pO2 71.1 L ABG HCO3 34.2 H ABG O2 Saturation 93.8 L ABG Base Excess 7.5 FiO2 40% Sodium 135.2 L Potassium 3.8 Chloride 94 L Carbon Dioxide 35 H Anion Gap 6 BUN 9 Creatinine 1.00 Est GFR ( Amer) > 60 Est GFR (Non-Af Amer) > 60 Glucose 74 L Lactic Acid 1.7 Calcium 7.7 L Magnesium Total Bilirubin AST Alkaline Phosphatase Total Protein Albumin 11/25/18 11/25/18 11/25/18 16:00 18:17 21:02 WBC RBC Hgb Hct MCV MCH MCHC RDW Plt Count Carbonic Acid 1.33 HCO3/H2CO3 Ratio 26:1 ABG pH 7.52 H ABG pCO2 44.2 ABG pO2 56.7 L ABG HCO3 35.4 H ABG O2 Saturation 92.1 L ABG Base Excess 11.4 FiO2 40% Sodium 136.1 L Potassium 3.7 Chloride 93 L Carbon Dioxide 37 H Anion Gap 6 BUN 9 Creatinine 1.07 Est GFR ( Amer) > 60 Est GFR (Non-Af Amer) 58 L Glucose 71 L Lactic Acid 1.6 Calcium 7.8 L Magnesium Total Bilirubin AST Alkaline Phosphatase Total Protein Albumin 11/26/18 11/26/18 11/26/18 00:31 03:32 03:32 WBC 5.2 RBC 4.60 Hgb 11.5 L Hct 36.2 MCV 79 L MCH 24.9 L MCHC 31.7 L RDW 21.5 H Plt Count 139 L Carbonic Acid HCO3/H2CO3 Ratio ABG pH ABG pCO2 ABG pO2 ABG HCO3 ABG O2 Saturation ABG Base Excess FiO2 Sodium 137.1 136.2 L Potassium 3.6 3.4 L Chloride 94 L 93 L Carbon Dioxide 37 H 36 H Anion Gap 6 7 BUN 10 10 Creatinine 1.17 1.19 Est GFR ( Amer) > 60 > 60 Est GFR (Non-Af Amer) 52 L 51 L Glucose 77 72 L Lactic Acid Calcium 7.6 L 7.6 L Magnesium 1.0 L* Total Bilirubin 1.7 H AST 21 Alkaline Phosphatase 240 H Total Protein 6.5 Albumin 2.7 L 11/26/18 03:43 WBC RBC Hgb Hct MCV MCH MCHC RDW Plt Count Carbonic Acid 1.34 HCO3/H2CO3 Ratio 28:1 ABG pH 7.55 H ABG pCO2 44.5 ABG pO2 63.7 L ABG HCO3 38.2 H ABG O2 Saturation 94.6 ABG Base Excess 14.3 FiO2 50% Sodium Potassium Chloride Carbon Dioxide Anion Gap BUN Creatinine Est GFR ( Amer) Est GFR (Non-Af Amer) Glucose Lactic Acid Calcium Magnesium Total Bilirubin AST Alkaline Phosphatase Total Protein Albumin 11/25/18 11/25/18 11/25/18 01:58 07:39 07:39 Creatine Kinase 50 CK-MB (CK-2) 0.53 Troponin I < 0.012 < 0.012 NT-Pro-B Natriuret Pep 766 H 11/25/18 11/25/18 11/25/18 12:03 12:03 18:17 Creatine Kinase 37 29 L CK-MB (CK-2) 0.37 Troponin I < 0.012 NT-Pro-B Natriuret Pep 11/25/18 11/26/18 18:17 03:32 Creatine Kinase CK-MB (CK-2) < 0.22 Troponin I < 0.012 NT-Pro-B Natriuret Pep 490 H Impressions: Abdomen Ultrasound 11/25/18 01:12 IMPRESSION: No free fluid identified within the upper quadrants. Evaluation of the lower quadrants was limited due to patient positioning as per the technologist. Chest CT 11/25/18 03:35 IMPRESSION: 1. Endotracheal tube with tip in the right mainstem bronchus. Recommend repositioning. 2. Bilateral dependent airspace opacities may be related to atelectasis. Developing pneumonic process or pneumonitis could produce the same appearance. 3. Enlarged right axillary lymph nodes as well as a 2.7 cm inferior right breast nodule. These may be reactive however other etiology not excluded. Correlation with right breast/axillary ultrasound and possible mammography recommended. 4. Body wall anasarca. 5. Small amount of ascites. 6. Hepatic steatosis. 7. Cardiomegaly. This exam was performed according to our departmental dose-optimization program, which includes automated exposure control, adjustment of the mA and/or kV according to patient size and/or use of iterative reconstruction technique. Head CT 11/25/18 03:35 IMPRESSION: No acute intracranial findings. Abdomen/Pelvis CT 11/25/18 03:36 IMPRESSION: 1. Endotracheal tube with tip in the right mainstem bronchus. Recommend repositioning. 2. Bilateral dependent airspace opacities may be related to atelectasis. Developing pneumonic process or pneumonitis could produce the same appearance. 3. Enlarged right axillary lymph nodes as well as a 2.7 cm inferior right breast nodule. These may be reactive however other etiology not excluded. Correlation with right breast/axillary ultrasound and possible mammography recommended. 4. Body wall anasarca. 5. Small amount of ascites. 6. Hepatic steatosis. 7. Cardiomegaly. This exam was performed according to our departmental dose-optimization program, which includes automated exposure control, adjustment of the mA and/or kV according to patient size and/or use of iterative reconstruction technique. Assessment and Plan - Diagnosis (1) Acute respiratory failure with hypoxia Is this a current diagnosis for this admission?: Yes Plan: Patient will be maintained in the ventilator with a consultation for Dr. Ayers today. Hopefully after diuresis for 24 hours patient can be extubated. She will continue to receive respiratory support to maintain adequate oxygen saturation level. 11/25-patient admitted with acute respiratory failure with hypoxia on mechanical ventilation. Patient is going to be on lasix drip. Strict input output will be implemented. NG tube is in place and Blank catheter in place. Presently on IV Zosyn and vancomycin plan is to continue the antibiotic therapy and blood cultures are pending. Consultation with Dr. Ayers was requested. Overall prognosis poor condition is critical. Chest x-ray suggestive of a pneumonia most likely community-acquired pneumonia most likely gram-positive organisms responsible. 11/26/[id number]-udxc-old female with history of congestive heart failure, morbid obesity, alcohol user chronic smoker admitted with acute on chronic respiratory failure with hypoxia. At the time of admission patient is in fluid overload she received IV Lasix drip until this morning. Fluid balance is -3.4 L in the last 24 hours. Chest x-ray done this morning indicating right-sided pneumonia most likely aspiration pneumonia. Antibiotics Zosyn and vancomycin restarted blood cultures are pending. Overall prognosis poor condition is critical. (2) Alcohol dependence Qualifiers: Substance use status: unspecified alcohol-induced disorder Qualified Code(s): F10.29 - Alcohol dependence with unspecified alcohol-induced disorder Is this a current diagnosis for this admission?: Yes (4) Morbid obesity with BMI of 40.0-44.9, adult Is this a current diagnosis for this admission?: No (5) Cocaine use Is this a current diagnosis for this admission?: Yes (6) Anasarca Is this a current diagnosis for this admission?: Yes Plan: Patient be treated with a Lasix infusion to obtain adequate diuresis to alleviate her anasarca. She will be monitored closely in the ICU. Serial CBCs, metabolic profiles and magnesium levels will be obtained. 11/25/2018-the examination of the body indicates she might have anasarca. Albumin is 3.2. To give albumin 50 g today it may help in diuresis. 11/26/2018-patient albumin is today's 2.7 to start her on albumin supplementation and to start her on tube feedings today if possible. Patient has morbid obesity with excessive fluid overload most likely secondary to hypoalbuminemia. (7) Tobacco dependence Is this a current diagnosis for this admission?: Yes (8) CHF (congestive heart failure) Is this a current diagnosis for this admission?: No Plan: 11/25/2018-patient has history of congestive heart failure and has bilateral extensive pedal edema and cardiomegaly on the x-ray and ascites. Most likely she has chronic diastolic heart failure. 11/26/2018-patient has history of chronic diastolic heart failure. Admitted for acute exacerbation of the diastolic heart failure. On Lasix drip at this morning fluid balance is -3.4 L. Plan is to change the Lasix to 40 mg IV every 8 hours. Creatinine is stable around 1.2. (9) Anemia Qualifiers: Anemia type: iron deficiency Iron deficiency anemia type: inadequate dietary iron intake Qualified Code(s): D50.8 - Other iron deficiency anemias Is this a current diagnosis for this admission?: Yes Plan: Patient's CBC will be monitored on a regular basis and her anemia will be treated as appropriate. 11/26/2018-patient's hemoglobin is 11.5. Plan is to continue to closely monitor the anemia because of anemia is unknown at this point. (10) Pneumonia Is this a current diagnosis for this admission?: Yes Plan: 11/26/2018-chest x-ray done this morning and shows most likely right lower lobe pneumonia. Most likely aspiration pneumonia. Started on Zosyn and vancomycin blood cultures are pending. To get tracheal aspirate sent for sputum culture. Is to continue mechanical ventilation and sedation and Dr. Ayers is on board. (11) Hypomagnesemia Is this a current diagnosis for this admission?: Yes Plan: 11/26/2018-serum magnesium is 1.0 today patient is on electrode protocol was going to supplement magnesium. (12) Hypokalemia Is this a current diagnosis for this admission?: Yes Plan: 11/26/2018-serum potassium is 3.4 to supplement potassium. - Time Time Spent with patient: 25-34 minutes Medications reviewed and adjusted accordingly: Yes Anticipated discharge: Home
--- NOTE | 2018-11-26 09:02 | RADIOLOGY REPORT (SQ) ---
EXAM DESCRIPTION: CHEST SINGLE VIEW COMPLETED DATE/TIME: 11/26/2018 6:40 am REASON FOR STUDY: resp failure COMPARISON: 11/25/2018 EXAM PARAMETERS: NUMBER OF VIEWS: One view TECHNIQUE: Single frontal radiograph of the chest. RADIATION DOSE: N/A LIMITATIONS: None. FINDINGS: TEMPORARY SUPPORT DEVICES:ETT in expected location. NG tube courses below the sherry-diaphr agm in to the stomach. LUNGS AND PLEURA: Slight improved aeration of the bases. Persistent mild opacities. Bilateral effusi ons increased on left. Fluid in the fissure. No masses. No pneumothorax. MEDIASTINUM AND HILAR STRUCTURES: No masses. Contour normal. HEART AND VASCULAR STRUCTURES: Heart is enlarged. Vascular congestion. Aorta normal for age. BONES: No acute findings. OTHER: No other significant finding. IMPRESSION: Improvement in the opacities but increase in the left pleural effusion. Persistent vasc ular congestion. SUPPORT DEVICE(S) IN EXPECTED LOCATIONS. TECHNICAL DOCUMENTATION: JOB ID: [id number] [employer]- All Rights Reserved Reading location - IP/workstation name: [email or web address]
--- NOTE | 2018-11-26 09:36 | EKG REPORT ---
SEVERITY:- ABNORMAL ECG - SINUS RHYTHM PROLONGED QT INTERVAL NONSPECIFIC ANTERIOR ST-T CHANGES : Confirmed by: Jaspal Perez MD 26-Nov-2018 09:36:29
[2018-11-26] MEDS ORDERED: VANCOMYCIN HCL INJ 1000 MG VIAL IV SCH (10:00)
[2018-11-26] MEDS ORDERED: POTASSI CL 20 MEQ/50 ML RIDER 20 MEQ/50 ML RTUPB IV SCH (10:00)
[2018-11-26] MEDS: PANTOT AC/MIN OIL/PET HY-PHL OINT 50 GM TOP SCH ×2 (10:06→21:18)
[2018-11-26] MEDS: ALBUMIN HUMAN 12.5 GM/50 ML RTUINJ IV SCH ×3 (10:06→13:48)
[2018-11-26] MEDS: PANTOPRAZOLE SODIUM 40 MG VIAL IV SCH ×2 (10:06→21:24)
[2018-11-26] MEDS: PIPERACILLIN SODIUM/TAZOBACTAM 3.375 GM in NORMAL SALINE 100 ML IV SCH ×2 (11:07→17:42)
[2018-11-26 11:26] LABS: ANION GAP 6 (5-19); BLOOD UREA NITROGEN 10 mg/dL (7-20); CALCIUM 7.6 mg/dL (8.4-10.2); CARBON DIOXIDE 37 mmol/L (22-30); CHLORIDE 94 mmol/L (98-107); GLUCOSE 81 mg/dL (75-110); POTASSIUM 3.6 mmol/L (3.6-5.0)
[2018-11-26] MEDS ORDERED: PIPERACILLIN/TAZOBACTAM 3.375 GM VIAL IV SCH (12:00)
[2018-11-26] MEDS ORDERED: VANCOMYCIN HCL 1,250 MG in DEXTROSE 5%-WATER 250 ML IV SCH (13:00)
[2018-11-26] MEDS: FUROSEMIDE INJ/PF 40 MG/4 ML SDV IV SCH ×2 (13:49→21:24)
[2018-11-26] MEDS: VANCOMYCIN HCL 1,250 MG in DEXTROSE 5%-WATER 250 ML IV SCH ×2 (14:36→21:23)
[2018-11-26 16:02] LABS: ARTERIAL BLOOD BASE EXCESS 11.8 mmol/L; ARTERIAL BLOOD H2CO3 1.64 mmol/L (1.05-1.35); ARTERIAL BLOOD HCO3 37.6 mmol/L (20-24); ARTERIAL BLOOD O2 SATURATION 93.2 % (94-98); ARTERIAL BLOOD PCO2 54.4 mmHg (35-45); ARTERIAL BLOOD PH 7.46 (7.35-7.45); ARTERIAL BLOOD PO2 64.4 mmHg (80-100); ARTERIAL BLOOD TOTAL CO2 39.3 mmol/L (21-25)
[2018-11-26 16:03] LABS: ARTERIAL BLOOD FIO2 60%
[2018-11-26] MEDS: PHARMACY COMMUNICATION ORDER MC SCH (17:00)
[2018-11-26] MEDS: NORMAL SALINE 1000 ML 1,000 ML with POTASSIUM CHLORIDE 20 MEQ, MAGNESIUM SULFATE 8 MEQ,... IV SCH ×5 (17:42)
[2018-11-26 18:03] LABS: BLOOD UREA NITROGEN 10 mg/dL (7-20); CALCIUM 7.4 mg/dL (8.4-10.2); CHLORIDE 93 mmol/L (98-107); GLUCOSE 90 mg/dL (75-110); POTASSIUM 3.3 mmol/L (3.6-5.0)
[2018-11-26 18:14] LABS: ANION GAP 6 (5-19)
[2018-11-26 18:16] LABS: CARBON DIOXIDE 39 mmol/L (22-30)
[2018-11-26 23:44] LABS: ANION GAP 8 (5-19); BLOOD UREA NITROGEN 10 mg/dL (7-20); CALCIUM 7.4 mg/dL (8.4-10.2); CARBON DIOXIDE 38 mmol/L (22-30); CHLORIDE 91 mmol/L (98-107); GLUCOSE 103 mg/dL (75-110); POTASSIUM 3.7 mmol/L (3.6-5.0)
[2018-11-27] MEDS: IPRATROPIUM BROMIDE 0.02% NEB 0.5 MG/2.5 ML AMPUL NEB SCH ×3 (00:13→16:02)
[2018-11-27] MEDS: LEVALBUTEROL HCL NEB 1.25 MG/3 ML AMPUL NEB SCH ×3 (00:13→16:02)
[2018-11-27 01:02] LABS: ANION GAP 6 (5-19); BLOOD UREA NITROGEN 10 mg/dL (7-20); CALCIUM 7.6 mg/dL (8.4-10.2); CARBON DIOXIDE 38 mmol/L (22-30); CHLORIDE 93 mmol/L (98-107); GLUCOSE 94 mg/dL (75-110); POTASSIUM 3.9 mmol/L (3.6-5.0)
[2018-11-27] MEDS: PIPERACILLIN SODIUM/TAZOBACTAM 3.375 GM in NORMAL SALINE 100 ML IV SCH ×4 (01:12→19:44)
[2018-11-27] MEDS: PROPOFOL 1,000 MG/100 ML INFUS..BTL IV PRN ×6 (02:43→19:47)
[2018-11-27] MEDS: DIAZEPAM INJ 10 MG/2 ML DISP.SYRIN IV PRN (03:01)
[2018-11-27 03:26] LABS: HEMATOCRIT 37.6 % (36.0-47.0); HEMOGLOBIN 11.8 g/dL (12.0-15.5); MEAN CORPUSCULAR HGB CONC 31.5 g/dL (32.0-36.0); MEAN CORPUSCULAR VOLUME 79 fl (80-97); PLATELET COUNT 139 10^3/uL (150-450); RED BLOOD COUNT 4.74 10^6/uL (3.72-5.28); RED CELL DISTRIBUTION WIDTH 21.5 % (11.5-14.0); WHITE BLOOD COUNT 7.5 10^3/uL (4.0-10.5)
[2018-11-27 03:53] LABS: ALKALINE PHOSPHATASE 235 U/L (38-126); ANION GAP 9 (5-19); ASPARTATE AMINO TRANSFERASE 23 U/L (14-36); BILIRUBIN,TOTAL 2.5 mg/dL (0.2-1.3); BLOOD UREA NITROGEN 10 mg/dL (7-20); CALCIUM 7.6 mg/dL (8.4-10.2); CARBON DIOXIDE 37 mmol/L (22-30); CHLORIDE 93 mmol/L (98-107); GLUCOSE 108 mg/dL (75-110); POTASSIUM 3.7 mmol/L (3.6-5.0)
[2018-11-27] MEDS: MIDAZOLAM HCL 50 MG/100 ML RTUINJ IV PRN ×2 (05:29→17:02)
[2018-11-27] MEDS: FUROSEMIDE INJ/PF 40 MG/4 ML SDV IV SCH ×3 (05:29→22:23)
[2018-11-27] MEDS: HEPARIN SOD (PORCINE) 5,000 UNIT/ML 1 ML VIAL SUBCUT SCH ×3 (05:30→22:23)
[2018-11-27 05:52] LABS: ARTERIAL BLOOD BASE EXCESS 12.9 mmol/L; ARTERIAL BLOOD H2CO3 1.63 mmol/L (1.05-1.35); ARTERIAL BLOOD HCO3 38.7 mmol/L (20-24); ARTERIAL BLOOD O2 SATURATION 91.9 % (94-98); ARTERIAL BLOOD PCO2 54.1 mmHg (35-45); ARTERIAL BLOOD PH 7.47 (7.35-7.45); ARTERIAL BLOOD PO2 59.9 mmHg (80-100); ARTERIAL BLOOD TOTAL CO2 40.3 mmol/L (21-25)
[2018-11-27 05:53] LABS: ARTERIAL BLOOD FIO2 60%
[2018-11-27] MEDS: VANCOMYCIN HCL 1,250 MG in DEXTROSE 5%-WATER 250 ML IV SCH (06:34)
--- NOTE | 2018-11-27 06:44 | EKG REPORT ---
SEVERITY:- ABNORMAL ECG - SINUS RHYTHM PROBABLE LEFT ATRIAL ABNORMALITY BORDERLINE PROLONGED QT INTERVAL DIFFUSE NONSPECIFIC ST-T CHANGES : Confirmed by: Jaspal Perez MD 27-Nov-2018 06:43:40
[2018-11-27] MEDS: BUDESONIDE NEB 0.5 MG/2 ML AMPUL NEB SCH ×2 (08:14→20:27)
--- NOTE | 2018-11-27 08:57 | RADIOLOGY REPORT (SQ) ---
EXAM DESCRIPTION: CHEST SINGLE VIEW COMPLETED DATE/TIME: 11/27/2018 6:34 am REASON FOR STUDY: resp failure COMPARISON: 11/26/2018. EXAM PARAMETERS: NUMBER OF VIEWS: One view. TECHNIQUE: Single frontal radiographic view of the chest acquired. RADIATION DOSE: NA LIMITATIONS: None. FINDINGS: LUNGS AND PLEURA: Diffuse bilateral airspace disease. Pleural effusions. MEDIASTINUM AND HILAR STRUCTURES: No masses. Contour normal. HEART AND VASCULAR STRUCTURES: Cardiomegaly. Vascular congestion appear BONES: No acute findings. HARDWARE: Stable endotracheal tube and nasogastric tube. OTHER: No other significant finding. IMPRESSION: NO CHANGE IN APPEARANCE OF THE CHEST. TECHNICAL DOCUMENTATION: JOB ID: [id number] [employer]- All Rights Reserved Reading location - IP/workstation name: [email or web address]
--- NOTE | 2018-11-27 09:19 | PDOC PROGRESS REPORT ---
Subjective Progress Note for:: 11/27/18 Subjective:: 11/26/2018 38 year old female who presented to the emergency room via EMS with dyspnea, abdominal distention and bilateral lower extremity pain and swelling with redness. Patient states that her symptoms have progressively worsened since she was discharged in June when she was seen for the same problems. The patient indicated that her lower extremities have been very swollen and she had noticed some redness on some of the areas of her lower extremities earlier in the day. She indicates that her abdominal swelling has also worsened progressively and has become extremely tight. She continues to drink alcohol every day and her last drink was on the night of 11/24/2018. She is not currently using any recreational drugs. She smokes 1 pack of cigarettes per day and continues to smoke despite her dyspnea. Patient became progressively more dyspneic shortly after her arrival in the emergency room while she was being given IV fluids and evaluated. Her respiratory status degraded to the point where she required intubation and ventilation via mechanical ventilator. She is going to be admitted to the ICU for further evaluation and treatment. 11/25/[id number]-sote-old female with multiple medical problems including congestive heart failure, chronic alcohol abuse, recreational drug use and urine drug screen is positive for cocaine, tobacco abuser came to the emergency room with increasing shortness of breath and questionable bilateral lower extremity jesika lulitis and lactic acid was 4.2 she went into respiratory failure in the emergency room status post intubation. Patient is properly sedated. Consultation with Dr. Chang was requested for central line consultation with Dr. Ayers was requested for management of the vent. She is going to continue to receive antibiotics and blood cultures are pending. Started on IV Protonix 40 mg twice a day, banana bag. Soft restraints order was placed. Condition is critical. Patient is going to receive a Lasix drip and to follow strict input output chart. 11/26/[id number]-kaca-old female admitted with acute on chronic respiratory failure status post intubation. Chest x-ray this morning indicates is possible right lower lobe pneumonia. Started on IV Zosyn and vancomycin blood cultures are negative so far. Patient is on mechanical ventilation on SIMV with 50% oxygen PEEP of 5 tidal volume of 500 respiratory rate of 16. She is on to prevent on Versed for sedation. CT scan of the chest at the time of admission shows lymph nodes under the right breast. Recommendation from the radiologist is to arrange for mammogram as an outpatient. Patient's potassium and magnesium are low today electrolyte protocol was implemented. Albumin is 2.7 to give IV albumin. Condition is critical prognosis is poor. I spoke to the daughter who is 16-year-old and she told me she does not have any family members in town. once adult family members are available to talk all explained to them the patient's condition. 11/27/[id number]-pwar-old female with a history of morbid obesity, congestive heart failure, cocaine use, chronic alcohol user, heavy smoker admitted with respiratory distress and hypoxia. He she was intubated. She still on intubation and to prevent and Versed. ABG this morning on 60% oxygen pH is 7.47/PCO2 54/PCO2 60 oxygen saturation is 92%. No acute events in the last 24 hours. Fluid balance of +100 cc. Afebrile. Her WBC count is normal. Cultures are negative so far. To discontinue IV vancomycin from today. Still overall prognosis poor condition is critical. Reason For Visit: ACUTE RESPIRATORY FAILURE WITH HYPOXIA Physical Exam Vital Signs: Temp Pulse Resp BP Pulse Ox 97.9 F 90 17 103/67 95 11/27/18 08:00 11/27/18 08:19 11/27/18 08:19 11/27/18 08:00 11/27/18 08:19 Intake & Output 11/26/18 11/27/18 11/28/18 06:59 06:59 06:59 Intake Total 2565.2 4726 Output Total 5950 3405 350 Balance -3384.8 1321 -350 Weight 139 kg 139.6 kg General appearance: PRESENT: morbidly obese Head exam: PRESENT: atraumatic Eye exam: PRESENT: other - Pupils are constricted slightly reactive. Mouth exam: PRESENT: moist, tongue midline Teeth exam: PRESENT: poor dentation Neck exam: ABSENT: carotid bruit, JVD, lymphadenopathy, thyromegaly Respiratory exam: PRESENT: decreased breath sounds Cardiovascular exam: PRESENT: RRR. ABSENT: diastolic murmur, rubs, systolic murmur GI/Abdominal exam: PRESENT: ascites, other - Abdomen is still stiff most likely secondary to fluid in the abdominal wall secondary to ascites. Bowel sounds are sluggish. NG tube is in place. Rectal exam: PRESENT: deferred Gentrourinary exam: PRESENT: indwelling catheter Extremities exam: PRESENT: +2 edema Neurological exam: PRESENT: other - Patient is intubated under sedation. Plan is to decrease the sedation to see patient is responsive or not. Skin exam: PRESENT: dry, intact, warm. ABSENT: cyanosis, rash Results Laboratory Results: 11/27/18 03:05 11/27/18 03:05 11/26/18 11/26/18 11/26/18 11:02 15:54 17:30 WBC RBC Hgb Hct MCV MCH MCHC RDW Plt Count Carbonic Acid 1.64 H HCO3/H2CO3 Ratio 22:1 ABG pH 7.46 H ABG pCO2 54.4 H ABG pO2 64.4 L ABG HCO3 37.6 H ABG O2 Saturation 93.2 L ABG Base Excess 11.8 FiO2 60% Sodium 136.8 L 137.6 Potassium 3.6 3.3 L Chloride 94 L 93 L Carbon Dioxide 37 H 39 H Anion Gap 6 6 BUN 10 10 Creatinine 1.26 H 1.33 H Est GFR ( Amer) 58 L 55 L Est GFR (Non-Af Amer) 48 L 45 L Glucose 81 90 Calcium 7.6 L 7.4 L Magnesium 1.7 Total Bilirubin AST Alkaline Phosphatase Total Protein Albumin 11/26/18 11/27/18 11/27/18 23:20 00:33 03:05 WBC 7.5 RBC 4.74 Hgb 11.8 L Hct 37.6 MCV 79 L MCH 25.0 L MCHC 31.5 L RDW 21.5 H Plt Count 139 L Carbonic Acid HCO3/H2CO3 Ratio ABG pH ABG pCO2 ABG pO2 ABG HCO3 ABG O2 Saturation ABG Base Excess FiO2 Sodium 136.7 L 136.5 L Potassium 3.7 3.9 Chloride 91 L 93 L Carbon Dioxide 38 H 38 H Anion Gap 8 6 BUN 10 10 Creatinine 1.34 H 1.39 H Est GFR ( Amer) 54 L 52 L Est GFR (Non-Af Amer) 45 L 43 L Glucose 103 94 Calcium 7.4 L 7.6 L Magnesium Total Bilirubin AST Alkaline Phosphatase Total Protein Albumin 11/27/18 11/27/18 03:05 05:37 WBC RBC Hgb Hct MCV MCH MCHC RDW Plt Count Carbonic Acid 1.63 H HCO3/H2CO3 Ratio 23:1 ABG pH 7.47 H ABG pCO2 54.1 H ABG pO2 59.9 L ABG HCO3 38.7 H ABG O2 Saturation 91.9 L ABG Base Excess 12.9 FiO2 60% Sodium 138.6 Potassium 3.7 Chloride 93 L Carbon Dioxide 37 H Anion Gap 9 BUN 10 Creatinine 1.38 H Est GFR ( Amer) 52 L Est GFR (Non-Af Amer) 43 L Glucose 108 Calcium 7.6 L Magnesium 1.5 L Total Bilirubin 2.5 H AST 23 Alkaline Phosphatase 235 H Total Protein 7.0 Albumin 3.0 L 11/25/18 11/25/18 11/25/18 01:58 07:39 07:39 Creatine Kinase 50 CK-MB (CK-2) 0.53 Troponin I < 0.012 < 0.012 NT-Pro-B Natriuret Pep 766 H 11/25/18 11/25/18 11/25/18 12:03 12:03 18:17 Creatine Kinase 37 29 L CK-MB (CK-2) 0.37 Troponin I < 0.012 NT-Pro-B Natriuret Pep 11/25/18 11/26/18 18:17 03:32 Creatine Kinase CK-MB (CK-2) < 0.22 Troponin I < 0.012 NT-Pro-B Natriuret Pep 490 H Impressions: Abdomen Ultrasound 11/25/18 01:12 IMPRESSION: No free fluid identified within the upper quadrants. Evaluation of the lower quadrants was limited due to patient positioning as per the technologist. Chest CT 11/25/18 03:35 IMPRESSION: 1. Endotracheal tube with tip in the right mainstem bronchus. Recommend repositioning. 2. Bilateral dependent airspace opacities may be related to atelectasis. Developing pneumonic process or pneumonitis could produce the same appearance. 3. Enlarged right axillary lymph nodes as well as a 2.7 cm inferior right breast nodule. These may be reactive however other etiology not excluded. Correlation with right breast/axillary ultrasound and possible mammography recommended. 4. Body wall anasarca. 5. Small amount of ascites. 6. Hepatic steatosis. 7. Cardiomegaly. This exam was performed according to our departmental dose-optimization program, which includes automated exposure control, adjustment of the mA and/or kV according to patient size and/or use of iterative reconstruction technique. Head CT 11/25/18 03:35 IMPRESSION: No acute intracranial findings. Abdomen/Pelvis CT 11/25/18 03:36 IMPRESSION: 1. Endotracheal tube with tip in the right mainstem bronchus. Recommend repositioning. 2. Bilateral dependent airspace opacities may be related to atelectasis. Developing pneumonic process or pneumonitis could produce the same appearance. 3. Enlarged right axillary lymph nodes as well as a 2.7 cm inferior right breast nodule. These may be reactive however other etiology not excluded. Correlation with right breast/axillary ultrasound and possible mammography recommended. 4. Body wall anasarca. 5. Small amount of ascites. 6. Hepatic steatosis. 7. Cardiomegaly. This exam was performed according to our departmental dose-optimization program, which includes automated exposure control, adjustment of the mA and/or kV according to patient size and/or use of iterative reconstruction technique. Chest X-Ray 11/27/18 06:00 IMPRESSION: NO CHANGE IN APPEARANCE OF THE CHEST. Assessment and Plan - Diagnosis (1) Acute respiratory failure with hypoxia Is this a current diagnosis for this admission?: Yes Plan: Patient will be maintained in the ventilator with a consultation for Dr. Ayers today. Hopefully after diuresis for 24 hours patient can be extubated. She will continue to receive respiratory support to maintain adequate oxygen saturation level. 11/25-patient admitted with acute respiratory failure with hypoxia on mechanical ventilation. Patient is going to be on lasix drip. Strict input output will be implemented. NG tube is in place and Blank catheter in place. Presently on IV Zosyn and vancomycin plan is to continue the antibiotic therapy and blood cultures are pending. Consultation with Dr. Ayers was requested. Overall prognosis poor condition is critical. Chest x-ray suggestive of a pneumonia most likely community-acquired pneumonia most likely gram-positive organisms responsible. 11/26/[id number]-vvzn-old female with history of congestive heart failure, morbid obesity, alcohol user chronic smoker admitted with acute on chronic respiratory failure with hypoxia. At the time of admission patient is in fluid overload she received IV Lasix drip until this morning. Fluid balance is -3.4 L in the last 24 hours. Chest x-ray done this morning indicating right-sided pneumonia most likely aspiration pneumonia. Antibiotics Zosyn and vancomycin restarted blood cultures are pending. Overall prognosis poor condition is critical. 11/27/[id number]-rknd-old female with history of congestive heart failure, morbid obesity admitted with acute on chronic respiratory failure with hypoxia. Patient presently on Lasix 40 mg every 8 hours urine output is 3.4 L. ABG shows PCO2 of 54 PCO2 of 60. This is on 60% oxygen. Pulmonary on board. Chest x-ray shows persistent opacifications. Patient is afebrile with normal WBC count. Plan is to discontinue vancomycin from today. To continue scheduled nebulizations. (2) Alcohol dependence Qualifiers: Substance use status: unspecified alcohol-induced disorder Qualified Code(s): F10.29 - Alcohol dependence with unspecified alcohol-induced disorder Is this a current diagnosis for this admission?: Yes Plan: Patient has a history of seizures when she is withdrawing from alcohol. She will be treated with Valium 10 mg IV q. one hour as needed tremors were seizure- like activity. She will additionally have chlorpromazine 25 mg IV every 8 hours as needed for agitation or hallucinations. 11/25/2018-patient has a history of seizures during the alcohol withdrawal process. Patient is presently on Valium 10 mg IV q. hours and also under Thorazine 25 mg IV every 8 hours. Plan is to continue the present management and start her on a banana bag. Place her on Ativan 1 mg IV every 4 as needed as a precaution for seizures. 11/27/2018-patient has history of seizures secondary to alcohol withdrawal. Patient is on Ativan as needed. Receiving banana bag daily. (3) Alcoholism Is this a current diagnosis for this admission?: Yes Plan: 11/27/2018-patient has history of chronic alcohol abuse when she is extubated counseling will be provided. (4) Morbid obesity with BMI of 40.0-44.9, adult Is this a current diagnosis for this admission?: No (5) Cocaine use Is this a current diagnosis for this admission?: Yes (6) Anasarca Is this a current diagnosis for this admission?: Yes Plan: Patient be treated with a Lasix infusion to obtain adequate diuresis to alleviate her anasarca. She will be monitored closely in the ICU. Serial CBCs, metabolic profiles and magnesium levels will be obtained. 11/25/2018-the examination of the body indicates she might have anasarca. Albumin is 3.2. To give albumin 50 g today it may help in diuresis. 11/26/2018-patient albumin is today's 2.7 to start her on albumin supplementation and to start her on tube feedings today if possible. Patient has morbid obesity with excessive fluid overload most likely secondary to hypoalbuminemia. 11/27/2018-patient has history of anasarca with third spacing of the fluids albumin supplementation was given. Today's albumin is 3.0 to give further albumin supplementation to improve the diuresis. (7) Tobacco dependence Is this a current diagnosis for this admission?: Yes (8) CHF (congestive heart failure) Is this a current diagnosis for this admission?: No Plan: 11/25/2018-patient has history of congestive heart failure and has bilateral extensive pedal edema and cardiomegaly on the x-ray and ascites. Most likely she has chronic diastolic heart failure. 11/26/2018-patient has history of chronic diastolic heart failure. Admitted for acute exacerbation of the diastolic heart failure. On Lasix drip at this morning fluid balance is -3.4 L. Plan is to change the Lasix to 40 mg IV every 8 hours. Creatinine is stable around 1.2. 11/27/2018-patient has history of chronic diastolic heart failure presently on Lasix 40 mg IV 3 times a day to add Bumex 1 mg p.o. twice daily via NG tube. Urine output is 3.4 L yesterday. (9) Anemia Qualifiers: Anemia type: iron deficiency Iron deficiency anemia type: inadequate dietary iron intake Qualified Code(s): D50.8 - Other iron deficiency anemias Is this a current diagnosis for this admission?: Yes Plan: Patient's CBC will be monitored on a regular basis and her anemia will be treat ed as appropriate. 11/26/2018-patient's hemoglobin is 11.5. Plan is to continue to closely monitor the anemia because of anemia is unknown at this point. 11/27/2018-patient's hemoglobin is 11.8 stable. (10) Pneumonia Is this a current diagnosis for this admission?: Yes Plan: 11/26/2018-chest x-ray done this morning and shows most likely right lower lobe pneumonia. Most likely aspiration pneumonia. Started on Zosyn and vancomycin blood cultures are pending. To get tracheal aspirate sent for sputum culture. Is to continue mechanical ventilation and sedation and Dr. Ayers is on board. 11/27/2018-patient's admitted with questionable right-sided pneumonia. WBC count is normal afebrile cultures are negative so far. Presently on IV Zosyn and vancomycin to stop vancomycin at this moment. Plan is to do the daily chest x- rays and ABGs. (11) Hypomagnesemia Is this a current diagnosis for this admission?: Yes Plan: 11/26/2018-serum magnesium is 1.0 today patient is on electrolytee protocol was going to supplement magnesium. 11/27/2018-magnesium level is 1.5 patient is receiving banana bag. (12) Hypokalemia Is this a current diagnosis for this admission?: Yes Plan: 11/26/2018-serum potassium is 3.4 to supplement potassium. 11/27/2018-patient serum potassium is 3.7 to give potassium supplementations. - Time Time Spent with patient: 25-34 minutes Medications reviewed and adjusted accordingly: Yes Anticipated discharge: Home
[2018-11-27] MEDS ORDERED: MAGNESIUM SULFATE/D5W 1 GM/100 ML RTUPB IV ONE (10:00)
[2018-11-27] MEDS: POTASSI CL 20 MEQ/50 ML RIDER 20 MEQ/50 ML RTUPB IV SCH ×2 (10:06→11:53)
[2018-11-27] MEDS: PANTOPRAZOLE SODIUM 40 MG VIAL IV SCH ×2 (10:13→22:23)
[2018-11-27] MEDS: PANTOT AC/MIN OIL/PET HY-PHL OINT 50 GM TOP SCH ×2 (10:13→22:24)
[2018-11-27] MEDS: ALBUMIN HUMAN 12.5 GM/50 ML RTUINJ IV SCH ×4 (10:16→14:28)
[2018-11-27] MEDS: BUMETANIDE 1 MG TABLET PO SCH ×2 (11:06→19:45)
[2018-11-27 11:14] LABS: ANION GAP 8 (5-19); BLOOD UREA NITROGEN 10 mg/dL (7-20); CALCIUM 7.4 mg/dL (8.4-10.2); CARBON DIOXIDE 38 mmol/L (22-30); CHLORIDE 91 mmol/L (98-107); GLUCOSE 102 mg/dL (75-110); POTASSIUM 3.7 mmol/L (3.6-5.0)
[2018-11-27 14:38] LABS: VANCOMYCIN,TROUGH 30.7 ug/mL (5.0-20.0)
[2018-11-27 16:51] LABS: ARTERIAL BLOOD BASE EXCESS 12.4 mmol/L; ARTERIAL BLOOD FIO2 90%; ARTERIAL BLOOD H2CO3 1.49 mmol/L (1.05-1.35); ARTERIAL BLOOD HCO3 37.4 mmol/L (20-24); ARTERIAL BLOOD O2 SATURATION 87.5 % (94-98); ARTERIAL BLOOD PCO2 49.5 mmHg (35-45); ARTERIAL BLOOD PO2 49.5 mmHg (80-100); ARTERIAL BLOOD TOTAL CO2 38.9 mmol/L (21-25)
[2018-11-27] MEDS: NORMAL SALINE 1000 ML 1,000 ML with POTASSIUM CHLORIDE 20 MEQ, MAGNESIUM SULFATE 8 MEQ,... IV SCH ×5 (18:32)
--- NOTE | 2018-11-27 18:34 | RADIOLOGY REPORT (SQ) ---
EXAM DESCRIPTION: CT HEAD WITHOUT COMPLETED DATE/TIME: 11/27/2018 6:22 pm REASON FOR STUDY: altered mental status COMPARISON: 11/25/2018 TECHNIQUE: Axial images acquired through the brain without intravenous contrast. Images reviewed wi th bone, brain and subdural windows. Additional sagittal and coronal reconstructions were generated. Images stored on PACS. All CT scanners at this facility use dose modulation, iterative reconstruction, and/or weight based d osing when appropriate to reduce radiation dose to as low as reasonably achievable (ALARA). [facility]: Dose Right [facility]: CareDose [facility]: Dose Right [facility]: Teradose 4D [facility]: Smart [employer] RADIATION DOSE: CT Rad equipment meets quality standard of care and radiation dose reduction techniq ues were employed. CTDIvol: 53.2 mGy. DLP: 964 mGy-cm. mGy. LIMITATIONS: None. FINDINGS: VENTRICLES: Normal size and contour. CEREBRUM: No masses. No hemorrhage. No midline shift. No evidence for acute infarction. Normal gra y/white matter differentiation. No areas of low density in the white matter. CEREBELLUM: No masses. No hemorrhage. No alteration of density. No evidence for acute infarction. EXTRAAXIAL SPACES: No fluid collections. No masses. ORBITS AND GLOBE: No intra- or extraconal masses. Normal contour of globe without masses. CALVARIUM: No fracture. PARANASAL SINUSES: Mucoperiosteal thickening is seen in the left maxillary sinus and some of the ethm oid air cells. The right maxillary sinus is completely opacified. SOFT TISSUES: No mass or hematoma. OTHER: No other significant finding. IMPRESSION: Sinus disease. No acute intracranial imaging findings. EVIDENCE OF ACUTE STROKE: NO. COMMENT: Quality ID # [id number]: Final reports with documentation of one or more dose reduction techniques (e.g., Automated exposure control, adjustment of the mA and/or kV according to patient size, use of iterative reconstruction technique) TECHNICAL DOCUMENTATION: JOB ID: [id number] [employer]- All Rights Reserved Reading location - IP/workstation name: [email or web address]
--- NOTE | 2018-11-27 18:59 | RADIOLOGY REPORT (SQ) ---
EXAM DESCRIPTION: CT CHEST WITHOUT COMPLETED DATE/TIME: 11/27/2018 6:22 pm REASON FOR STUDY: resp failure/ards COMPARISON: 11/25/2018 TECHNIQUE: CT scan performed of the chest without intravenous contrast. Images reviewed with lung, soft tissue and bone windows. Reconstructed coronal and sagittal MPR images reviewed. All images st ored on PACS. All CT scanners at this facility use dose modulation, iterative reconstruction, and/or weight based d osing when appropriate to reduce radiation dose to as low as reasonably achievable (ALARA). [facility]: Dose Right [facility]: CareDose [facility]: Dose Right [facility]: Teradose 4D [facility]: Smart [employer] RADIATION DOSE: CT Rad equipment meets quality standard of care and radiation dose reduction techniq ues were employed. CTDIvol: 20.4 mGy. DLP: 673 mGy-cm. mGy. LIMITATIONS: No technical limitations. FINDINGS: LUNGS AND PLEURA: Small pleural effusions. Considerable opacification both lower lobes wi th air bronchograms. There is more limited opacification the right middle lobe. HILAR AND MEDIASTINAL STRUCTURES: No identified masses or abnormal nodes. No obvious aneurysm. HEART AND VASCULAR STRUCTURES: Cardiomegaly. No pericardial effusion. UPPER ABDOMEN: Hepatosplenomegaly is suggested. THYROID AND OTHER SOFT TISSUES: No masses. No adenopathy. BONES: No significant finding. HARDWARE: Endotracheal tube is still somewhat low in position. The tip of the tube is 1 cm above the kirill. NG tube. OTHER: No other significant findings. IMPRESSION: The endotracheal tube remains in low position. The tip of the tube is 1 cm above the ca erika. Small pleural effusions. Airspace disease in both lower lobes and in the right middle lobe. Atelect asis versus pneumonia. Cardiomegaly. No adam pulmonary edema. TECHNICAL DOCUMENTATION: JOB ID: [id number] Quality ID # [id number]: Final reports with documentation of one or more dose reduction techniques (e.g., Au tomated exposure control, adjustment of the mA and/or kV according to patient size, use of iterative reconstruction technique) 2010 [employer]- All Rights Reserved Reading location - IP/workstation name: [email or web address]
[2018-11-27] MEDS: PHARMACY COMMUNICATION ORDER MC SCH (19:32)
[2018-11-27 20:36] LABS: HEMATOCRIT 37.8 % (36.0-47.0); MEAN CORPUSCULAR HEMOGLOBIN 25.1 pg (27.0-33.4); MEAN CORPUSCULAR HGB CONC 31.8 g/dL (32.0-36.0); MEAN CORPUSCULAR VOLUME 79 fl (80-97); PLATELET COUNT 128 10^3/uL (150-450); RED BLOOD COUNT 4.79 10^6/uL (3.72-5.28); RED CELL DISTRIBUTION WIDTH 20.7 % (11.5-14.0); WHITE BLOOD COUNT 5.8 10^3/uL (4.0-10.5)
[2018-11-27 20:54] LABS: ABSOLUTE LYMPHOCYTES# (MANUAL) 1.3 10^3/uL (0.5-4.7); ABSOLUTE MONOCYTES # (MANUAL) 0.1 10^3/uL (0.1-1.4); BAND NEUTROPHILS % (MANUAL) 2 % (3-5); BASOPHILS % (MANUAL) 0 % (0-2); EOSINOPHILS % (MANUAL) 2 % (0-6); LYMPHOCYTES % (MANUAL) 23 % (13-45); MONOCYTES % (MANUAL) 2 % (3-13); SEGMENTED NEUTROPHILS % (MAN) 71 % (42-78); TOTAL CELLS COUNTED 100
[2018-11-27 20:58] LABS: ANISOCYTOSIS 3+; HYPOCHROMASIA 1+; TARGET CELLS 2+
[2018-11-27 20:59] LABS: PLATELET COMMENT DECREASED
[2018-11-27 22:54] LABS: ALBUMIN 3.1 g/dL (3.5-5.0); ALKALINE PHOSPHATASE 222 U/L (38-126); ANION GAP 10 (5-19); ASPARTATE AMINO TRANSFERASE 21 U/L (14-36); BILIRUBIN,DIRECT 2.8 mg/dL (0.0-0.4); BILIRUBIN,TOTAL 3.5 mg/dL (0.2-1.3); BLOOD UREA NITROGEN 10 mg/dL (7-20); CALCIUM 7.6 mg/dL (8.4-10.2); CARBON DIOXIDE 36 mmol/L (22-30); CHLORIDE 92 mmol/L (98-107); GLUCOSE 90 mg/dL (75-110); POTASSIUM 3.7 mmol/L (3.6-5.0); TOTAL PROTEIN 6.7 g/dL (6.3-8.2)
[2018-11-28] MEDS: PROPOFOL 1,000 MG/100 ML INFUS..BTL IV PRN ×6 (00:23→20:34)
[2018-11-28] MEDS: PIPERACILLIN SODIUM/TAZOBACTAM 3.375 GM in NORMAL SALINE 100 ML IV SCH ×5 (00:25→23:16)
[2018-11-28] MEDS: IPRATROPIUM BROMIDE 0.02% NEB 0.5 MG/2.5 ML AMPUL NEB SCH ×3 (00:36→16:53)
[2018-11-28] MEDS: LEVALBUTEROL HCL NEB 1.25 MG/3 ML AMPUL NEB SCH ×3 (00:36→16:53)
[2018-11-28 01:45] LABS: ARTERIAL BLOOD BASE EXCESS 13.1 mmol/L; ARTERIAL BLOOD H2CO3 1.42 mmol/L (1.05-1.35); ARTERIAL BLOOD HCO3 37.7 mmol/L (20-24); ARTERIAL BLOOD O2 SATURATION 72.7 % (94-98); ARTERIAL BLOOD PCO2 47.3 mmHg (35-45); ARTERIAL BLOOD PH 7.52 (7.35-7.45); ARTERIAL BLOOD TOTAL CO2 39.1 mmol/L (21-25)
[2018-11-28 01:46] LABS: ARTERIAL BLOOD FIO2 90%
[2018-11-28 04:15] LABS: ARTERIAL BLOOD BASE EXCESS 13.2 mmol/L; ARTERIAL BLOOD HCO3 35.5 mmol/L (20-24); ARTERIAL BLOOD O2 SATURATION 95.1 % (94-98); ARTERIAL BLOOD PCO2 36.7 mmHg (35-45); ARTERIAL BLOOD PO2 62.2 mmHg (80-100); ARTERIAL BLOOD TOTAL CO2 36.7 mmol/L (21-25)
[2018-11-28 04:16] LABS: ARTERIAL BLOOD FIO2 90%
[2018-11-28 04:30] LABS: HEMATOCRIT 35.7 % (36.0-47.0); HEMOGLOBIN 11.3 g/dL (12.0-15.5); MEAN CORPUSCULAR HEMOGLOBIN 24.5 pg (27.0-33.4); MEAN CORPUSCULAR HGB CONC 31.6 g/dL (32.0-36.0); MEAN CORPUSCULAR VOLUME 78 fl (80-97); PLATELET COUNT 130 10^3/uL (150-450); RED BLOOD COUNT 4.61 10^6/uL (3.72-5.28); RED CELL DISTRIBUTION WIDTH 21.1 % (11.5-14.0); WHITE BLOOD COUNT 5.4 10^3/uL (4.0-10.5)
[2018-11-28 04:48] LABS: ALBUMIN 3.1 g/dL (3.5-5.0); ALKALINE PHOSPHATASE 221 U/L (38-126); ANION GAP 10 (5-19); ASPARTATE AMINO TRANSFERASE 22 U/L (14-36); BILIRUBIN,DIRECT 3.3 mg/dL (0.0-0.4); BILIRUBIN,TOTAL 4.1 mg/dL (0.2-1.3); BLOOD UREA NITROGEN 10 mg/dL (7-20); CALCIUM 7.8 mg/dL (8.4-10.2); CARBON DIOXIDE 33 mmol/L (22-30); CHLORIDE 95 mmol/L (98-107); GLUCOSE 97 mg/dL (75-110); POTASSIUM 3.6 mmol/L (3.6-5.0); TOTAL PROTEIN 6.9 g/dL (6.3-8.2)
[2018-11-28] MEDS ORDERED: MIDODRINE HCL 5 MG TABLET PO ONE (05:00)
[2018-11-28] MEDS: FUROSEMIDE INJ/PF 40 MG/4 ML SDV IV SCH ×3 (06:16→21:03)
[2018-11-28] MEDS: HEPARIN SOD (PORCINE) 5,000 UNIT/ML 1 ML VIAL SUBCUT SCH ×3 (06:17→21:02)
[2018-11-28] MEDS: BUDESONIDE NEB 0.5 MG/2 ML AMPUL NEB SCH ×2 (08:12→20:45)
--- NOTE | 2018-11-28 08:25 | RADIOLOGY REPORT (SQ) ---
EXAM DESCRIPTION: CHEST SINGLE VIEW COMPLETED DATE/TIME: 11/28/2018 6:25 am REASON FOR STUDY: resp failure COMPARISON: 11/27/2018 EXAM PARAMETERS: NUMBER OF VIEWS: One view. TECHNIQUE: Single frontal radiographic view of the chest acquired. RADIATION DOSE: NA LIMITATIONS: None. FINDINGS: LUNGS AND PLEURA: Improved aeration with decreased interstitial opacities. Persistent lef t retrocardiac opacity with obscuration of the left hemidiaphragm. Possible small left effusion. No pneumothorax. MEDIASTINUM AND HILAR STRUCTURES: No masses. Contour normal. HEART AND VASCULAR STRUCTURES: Enlarged, stable. BONES: No acute findings. HARDWARE: Endotracheal tube tip overlies midthoracic trachea. Enteric tube tip below diaphragm but e xcluded by collimation. OTHER: No other significant finding. IMPRESSION: Improved aeration with persistent left retrocardiac opacity, possibly atelectasis or inf ection. Endotracheal tube tip overlies midthoracic trachea. TECHNICAL DOCUMENTATION: JOB ID: [id number] [employer]- All Rights Reserved Reading location - IP/workstation name: [email or web address]
--- NOTE | 2018-11-28 08:49 | PDOC PROGRESS REPORT ---
Subjective Progress Note for:: 11/28/18 Subjective:: 11/26/2018 38 year old female who presented to the emergency room via EMS with dyspnea, abdominal distention and bilateral lower extremity pain and swelling with redness. Patient states that her symptoms have progressively worsened since she was discharged in June when she was seen for the same problems. The patient indicated that her lower extremities have been very swollen and she had noticed some redness on some of the areas of her lower extremities earlier in the day. She indicates that her abdominal swelling has also worsened progressively and has become extremely tight. She continues to drink alcohol every day and her last drink was on the night of 11/24/2018. She is not currently using any recreational drugs. She smokes 1 pack of cigarettes per day and continues to smoke despite her dyspnea. Patient became progressively more dyspneic shortly after her arrival in the emergency room while she was being given IV fluids and evaluated. Her respiratory status degraded to the point where she required intubation and ventilation via mechanical ventilator. She is going to be admitted to the ICU for further evaluation and treatment. 11/25/[id number]-ctbm-old female with multiple medical problems including congestive heart failure, chronic alcohol abuse, recreational drug use and urine drug screen is positive for cocaine, tobacco abuser came to the emergency room with increasing shortness of breath and questionable bilateral lower extremity jesika lulitis and lactic acid was 4.2 she went into respiratory failure in the emergency room status post intubation. Patient is properly sedated. Consultation with Dr. Chang was requested for central line consultation with Dr. Ayers was requested for management of the vent. She is going to continue to receive antibiotics and blood cultures are pending. Started on IV Protonix 40 mg twice a day, banana bag. Soft restraints order was placed. Condition is critical. Patient is going to receive a Lasix drip and to follow strict input output chart. 11/26/[id number]-ewcf-old female admitted with acute on chronic respiratory failure status post intubation. Chest x-ray this morning indicates is possible right lower lobe pneumonia. Started on IV Zosyn and vancomycin blood cultures are negative so far. Patient is on mechanical ventilation on SIMV with 50% oxygen PEEP of 5 tidal volume of 500 respiratory rate of 16. She is on to prevent on Versed for sedation. CT scan of the chest at the time of admission shows lymph nodes under the right breast. Recommendation from the radiologist is to arrange for mammogram as an outpatient. Patient's potassium and magnesium are low today electrolyte protocol was implemented. Albumin is 2.7 to give IV albumin. Condition is critical prognosis is poor. I spoke to the daughter who is 16-year-old and she told me she does not have any family members in town. once adult family members are available to talk all explained to them the patient's condition. 11/27/[id number]-ivpc-old female with a history of morbid obesity, congestive heart failure, cocaine use, chronic alcohol user, heavy smoker admitted with respiratory distress and hypoxia. He she was intubated. She still on intubation and on diprivan and Versed. ABG this morning on 60% oxygen pH is 7.47/PCO2 54/PCO2 60 oxygen saturation is 92%. No acute events in the last 24 hours. Fluid balance of +100 cc. Afebrile. Her WBC count is normal. Cultures are negative so far. To discontinue IV vancomycin from today. Still overall prognosis poor condition is critical. 11/28/[id number]-igiw-old female with history of alcohol abuse, cocaine use, history of congestive heart failure morbid obesity heavy smoker admitted with respiratory distress and hypoxia she was intubated and presently on Versed and diprivan. Presently on 90% oxygen with a tidal volume of 550 respiratory rate of 20 pulse ox of 90%. ABG this morning pH is 7.6 PCO2 36 PO2 62 oxygen saturation is 95%. Cultures are negative. We will adjust ventilator settings as per Dr. Ayers's recommendations. Acute events in the last 24 hours chest x-ray looks better today. Reason For Visit: ACUTE RESPIRATORY FAILURE WITH HYPOXIA Physical Exam Vital Signs: Temp Pulse Resp BP Pulse Ox 98.4 F 84 20 111/77 97 11/28/18 07:22 11/28/18 00:37 11/28/18 07:22 11/28/18 07:22 11/28/18 07:22 Intake & Output 11/27/18 11/28/18 11/29/18 06:59 06:59 06:59 Intake Total 4818 2617 1182 Output Total 340 3725 Balance 1421 -1108 1182 Weight 139.6 kg 138.3 kg General appearance: PRESENT: morbidly obese, other - Intubated under sedation. Head exam: PRESENT: atraumatic Eye exam: PRESENT: PERRLA Ear exam: PRESENT: normal external ear exam Mouth exam: PRESENT: neck supple Teeth exam: PRESENT: poor dentation Neck exam: ABSENT: carotid bruit, JVD, lymphadenopathy, thyromegaly Respiratory exam: PRESENT: crackles, decreased breath sounds Cardiovascular exam: PRESENT: RRR. ABSENT: diastolic murmur, rubs, systolic murmur GI/Abdominal exam: PRESENT: other - Chief abdomen bowel sounds are sluggish. CAT scan shows mild ascites. Rectal exam: PRESENT: deferred Gentrourinary exam: PRESENT: indwelling catheter Neurological exam: PRESENT: other - Patient is intubated under sedation. Results Laboratory Results: 11/28/18 04:16 11/28/18 04:16 11/27/18 11/27/18 11/27/18 10:35 16:25 16:46 WBC RBC Hgb Hct MCV MCH MCHC RDW Plt Count Seg Neutrophils % Lymphocytes % Monocytes % Eosinophils % Basophils % Absolute Neutrophils Absolute Lymphocytes Absolute Monocytes Absolute Eosinophils Absolute Basophils Carbonic Acid 1.49 H HCO3/H2CO3 Ratio 25:1 ABG pH 7.50 H ABG pCO2 49.5 H ABG pO2 49.5 L ABG HCO3 37.4 H ABG O2 Saturation 87.5 L ABG Base Excess 12.4 FiO2 90% Sodium 136.8 L Cancelled Potassium 3.7 Cancelled Chloride 91 L Cancelled Carbon Dioxide 38 H Cancelled Anion Gap 8 Cancelled BUN 10 Cancelled Creatinine 1.39 H Cancelled Est GFR ( Amer) 52 L Cancelled Est GFR (Non-Af Amer) 43 L Cancelled Glucose 102 Cancelled Calcium 7.4 L Cancelled Magnesium Total Bilirubin AST Alkaline Phosphatase Total Protein Albumin 11/27/18 11/27/18 11/27/18 20:20 20:20 20:20 WBC 5.8 RBC 4.79 Hgb 12.0 Hct 37.8 MCV 79 L MCH 25.1 L MCHC 31.8 L RDW 20.7 H Plt Count 128 L Seg Neutrophils % Not Reportable Lymphocytes % Not Reportable Monocytes % Not Reportable Eosinophils % Not Reportable Basophils % Not Reportable Absolute Neutrophils Not Reportable Absolute Lymphocytes Not Reportable Absolute Monocytes Not Reportable Absolute Eosinophils Not Reportable Absolute Basophils Not Reportable Carbonic Acid HCO3/H2CO3 Ratio ABG pH ABG pCO2 ABG pO2 ABG HCO3 ABG O2 Saturation ABG Base Excess FiO2 Sodium Cancelled Cancelled Potassium Cancelled Cancelled Chloride Cancelled Cancelled Carbon Dioxide Cancelled Cancelled Anion Gap Cancelled Cancelled BUN Cancelled Cancelled Creatinine Cancelled Cancelled Est GFR ( Amer) Cancelled Cancelled Est GFR (Non-Af Amer) Cancelled Cancelled Glucose Cancelled Cancelled Calcium Cancelled Cancelled Magnesium Cancelled Total Bilirubin Cancelled AST Cancelled Alkaline Phosphatase Cancelled Total Protein Cancelled Albumin Cancelled 11/27/18 11/28/18 11/28/18 22:08 01:32 03:38 WBC RBC Hgb Hct MCV MCH MCHC RDW Plt Count Seg Neutrophils % Lymphocytes % Monocytes % Eosinophils % Basophils % Absolute Neutrophils Absolute Lymphocytes Absolute Monocytes Absolute Eosinophils Absolute Basophils Carbonic Acid 1.42 H 1.10 HCO3/H2CO3 Ratio 26:1 32:1 ABG pH 7.52 H 7.60 H* ABG pCO2 47.3 H 36.7 ABG pO2 35.0 L* 62.2 L ABG HCO3 37.7 H 35.5 H ABG O2 Saturation 72.7 L 95.1 ABG Base Excess 13.1 13.2 FiO2 90% 90% Sodium 138.1 Potassium 3.7 Chloride 92 L Carbon Dioxide 36 H Anion Gap 10 BUN 10 Creatinine 1.47 H Est GFR ( Amer) 49 L Est GFR (Non-Af Amer) 40 L Glucose 90 Calcium 7.6 L Magnesium 1.7 Total Bilirubin 3.5 H AST 21 Alkaline Phosphatase 222 H Total Protein 6.7 Albumin 3.1 L 11/28/18 11/28/18 04:16 04:16 WBC 5.4 RBC 4.61 Hgb 11.3 L Hct 35.7 L MCV 78 L MCH 24.5 L MCHC 31.6 L RDW 21.1 H Plt Count 130 L Seg Neutrophils % Lymphocytes % Monocytes % Eosinophils % Basophils % Absolute Neutrophils Absolute Lymphocytes Absolute Monocytes Absolute Eosinophils Absolute Basophils Carbonic Acid HCO3/H2CO3 Ratio ABG pH ABG pCO2 ABG pO2 ABG HCO3 ABG O2 Saturation ABG Base Excess FiO2 Sodium 137.9 Potassium 3.6 Chloride 95 L Carbon Dioxide 33 H Anion Gap 10 BUN 10 Creatinine 1.55 H Est GFR ( Amer) 46 L Est GFR (Non-Af Amer) 38 L Glucose 97 Calcium 7.8 L Magnesium 1.8 Total Bilirubin 4.1 H AST 22 Alkaline Phosphatase 221 H Total Protein 6.9 Albumin 3.1 L 11/25/18 02:09 Catheterized Urine Urine Culture - Final NO GROWTH 2 DAYS 11/25/18 11/25/18 11/25/18 01:58 07:39 07:39 Creatine Kinase 50 CK-MB (CK-2) 0.53 Troponin I < 0.012 < 0.012 NT-Pro-B Natriuret Pep 766 H 11/25/18 11/25/18 11/25/18 12:03 12:03 18:17 Creatine Kinase 37 29 L CK-MB (CK-2) 0.37 Troponin I < 0.012 NT-Pro-B Natriuret Pep 11/25/18 11/26/18 18:17 03:32 Creatine Kinase CK-MB (CK-2) < 0.22 Troponin I < 0.012 NT-Pro-B Natriuret Pep 490 H Impressions: Abdomen Ultrasound 11/25/18 01:12 IMPRESSION: No free fluid identified within the upper quadrants. Evaluation of the lower quadrants was limited due to patient positioning as per the technologist. Abdomen/Pelvis CT 11/25/18 03:36 IMPRESSION: 1. Endotracheal tube with tip in the right mainstem bronchus. Recommend repositioning. 2. Bilateral dependent airspace opacities may be related to atelectasis. Developing pneumonic process or pneumonitis could produce the same appearance. 3. Enlarged right axillary lymph nodes as well as a 2.7 cm inferior right breast nodule. These may be reactive however other etiology not excluded. Correlation with right breast/axillary ultrasound and possible mammography recommended. 4. Body wall anasarca. 5. Small amount of ascites. 6. Hepatic steatosis. 7. Cardiomegaly. This exam was performed according to our departmental dose-optimization program, which includes automated exposure control, adjustment of the mA and/or kV according to patient size and/or use of iterative reconstruction technique. Chest CT 11/27/18 00:00 IMPRESSION: The endotracheal tube remains in low position. The tip of the tube is 1 cm above the kirill. Small pleural effusions. Airspace disease in both lower lobes and in the right middle lobe. Atelectasis versus pneumonia. Cardiomegaly. No adam pulmonary edema. Head CT 11/27/18 00:00 IMPRESSION: Sinus disease. No acute intracranial imaging findings. EVIDENCE OF ACUTE STROKE: NO. Chest X-Ray 11/28/18 06:00 IMPRESSION: Improved aeration with persistent left retrocardiac opacity, possibly atelectasis or infection. Endotracheal tube tip overlies midthoracic trachea. Assessment and Plan - Diagnosis (1) Acute respiratory failure with hypoxia Is this a current diagnosis for this admission?: Yes Plan: Patient will be maintained in the ventilator with a consultation for Dr. Ayers today. Hopefully after diuresis for 24 hours patient can be extubated. She will continue to receive respiratory support to maintain adequate oxygen saturation level. 11/25-patient admitted with acute respiratory failure with hypoxia on mechanical ventilation. Patient is going to be on lasix drip. Strict input output will be implemented. NG tube is in place and Blank catheter in place. Presently on IV Zosyn and vancomycin plan is to continue the antibiotic therapy and blood cultures are pending. Consultation with Dr. Ayers was requested. Overall prognosis poor condition is critical. Chest x-ray suggestive of a pneumonia most likely community-acquired pneumonia most likely gram-positive organisms responsible. 11/26/[id number]-fxzx-old female with history of congestive heart failure, morbid obesity, alcohol user chronic smoker admitted with acute on chronic respiratory failure with hypoxia. At the time of admission patient is in fluid overload she received IV Lasix drip until this morning. Fluid balance is -3.4 L in the last 24 hours. Chest x-ray done this morning indicating right-sided pneumonia most likely aspiration pneumonia. Antibiotics Zosyn and vancomycin restarted blood cultures are pending. Overall prognosis poor condition is critical. 11/27/[id number]-ismy-old female with history of congestive heart failure, morbid obesity admitted with acute on chronic respiratory failure with hypoxia. Patient presently on Lasix 40 mg every 8 hours urine output is 3.4 L. ABG shows PCO2 of 54 PCO2 of 60. This is on 60% oxygen. Pulmonary on board. Chest x-ray shows persistent opacifications. Patient is afebrile with normal WBC count. Plan is to discontinue vancomycin from today. To continue scheduled nebulizations. 11/28/[id number]-kove-old female with multiple medical problems admitted with acute on chronic respiratory failure with hypoxia still intubated. ABG slightly better compared to yesterday and chest x-ray shows improvement. Presently on 90% oxygen on mechanical ventilation. Afebrile. WBC count is normal. Cultures are negative. Presently on Zosyn. Pulmonary on board. Plan is to continue the present management. (2) Alcohol dependence Qualifiers: Substance use status: unspecified alcohol-induced disorder Qualified Code(s): F10.29 - Alcohol dependence with unspecified alcohol-induced disorder Is this a current diagnosis for this admission?: Yes (3) Alcoholism Is this a current diagnosis for this admission?: Yes (4) Morbid obesity with BMI of 40.0-44.9, adult Is this a current diagnosis for this admission?: No (5) Cocaine use Is this a current diagnosis for this admission?: Yes (6) Anasarca Is this a current diagnosis for this admission?: Yes Plan: Patient be treated with a Lasix infusion to obtain adequate diuresis to alleviate her anasarca. She will be monitored closely in the ICU. Serial CBCs, metabolic profiles and magnesium levels will be obtained. 11/25/2018-the examination of the body indicates she might have anasarca. Albumin is 3.2. To give albumin 50 g today it may help in diuresis. 11/26/2018-patient albumin is today's 2.7 to start her on albumin supplementation and to start her on tube feedings today if possible. Patient has morbid obesity with excessive fluid overload most likely secondary to hypoalbuminemia. 11/27/2018-patient has history of anasarca with third spacing of the fluids albumin supplementation was given. Today's albumin is 3.0 to give further albumin supplementation to improve the diuresis. 11/28/2018-patient serum albumin is 3.1 patient is receiving daily, albumin supplementations. (7) Tobacco dependence Is this a current diagnosis for this admission?: Yes (8) CHF (congestive heart failure) Is this a current diagnosis for this admission?: No Plan: 11/25/2018-patient has history of congestive heart failure and has bilateral extensive pedal edema and cardiomegaly on the x-ray and ascites. Most likely she has chronic diastolic heart failure. 11/26/2018-patient has history of chronic diastolic heart failure. Admitted for acute exacerbation of the diastolic heart failure. On Lasix drip at this morning fluid balance is -3.4 L. Plan is to change the Lasix to 40 mg IV every 8 hours. Creatinine is stable around 1.2. 11/27/2018-patient has history of chronic diastolic heart failure presently on Lasix 40 mg IV 3 times a day to add Bumex 1 mg p.o. twice daily via NG tube. Urine output is 3.4 L yesterday. 11/28/2018-she has a history of chronic diastolic heart failure on Bumex 1 mg p.o. twice a day and Lasix 40 mg IV 3 times a day. Fluid balance is -1.1 L yesterday. Creatinine slightly plugged up to 1.55 today plan is to hold Bumex. And continue Lasix 40 mg IV 3 times daily. Patient does not fluid restriction 1200 cc/day. (9) Anemia Qualifiers: Anemia type: iron deficiency Iron deficiency anemia type: inadequate dietary iron intake Qualified Code(s): D50.8 - Other iron deficiency anemias Is this a current diagnosis for this admission?: Yes Plan: Patient's CBC will be monitored on a regular basis and her anemia will be treated as appropriate. 11/26/2018-patient's hemoglobin is 11.5. Plan is to continue to closely monitor the anemia because of anemia is unknown at this point. 11/27/2018-patient's hemoglobin is 11.8 stable. 11/28/2018-patient hemoglobin is 11.3 stable. Plan is to continue with to closely monitor the hemoglobin. (10) Pneumonia Is this a current diagnosis for this admission?: Yes Plan: 11/26/2018-chest x-ray done this morning and shows most likely right lower lobe pneumonia. Most likely aspiration pneumonia. Started on Zosyn and vancomycin blood cultures are pending. To get tracheal aspirate sent for sputum culture. Is to continue mechanical ventilation and sedation and Dr. Ayers is on board. 11/27/2018-patient's admitted with questionable right-sided pneumonia. WBC count is normal afebrile cultures are negative so far. Presently on IV Zosyn and vancomycin to stop vancomycin at this moment. Plan is to do the daily chest x- rays and ABGs. 11/28/2018-patient is presently on IV Zosyn blood cultures are negative afebrile WBC count is normal. Presently on Zosyn. Chest x-ray shows improvement. (11) Hypomagnesemia Is this a current diagnosis for this admission?: Yes Plan: 11/26/2018-serum magnesium is 1.0 today patient is on electrolytee protocol was going to supplement magnesium. 11/27/2018-magnesium level is 1.5 patient is receiving banana bag. 11/28/2018-serum magnesium level is 1.8 today hypomagnesemia is resolved. (12) Hypokalemia Is this a current diagnosis for this admission?: Yes Plan: 11/26/2018-serum potassium is 3.4 to supplement potassium. 11/27/2018-patient serum potassium is 3.7 to give potassium supplementations. 11/28/2018-serum potassium is 3.6 hypokalemia is resolved. - Time Time Spent with patient: 25-34 minutes Medications reviewed and adjusted accordingly: Yes Anticipated discharge: Home
[2018-11-28] MEDS: PANTOT AC/MIN OIL/PET HY-PHL OINT 50 GM TOP SCH ×2 (09:36→21:07)
[2018-11-28] MEDS: ALBUMIN HUMAN 12.5 GM/50 ML RTUINJ IV SCH ×4 (09:36→14:12)
--- NOTE | 2018-11-28 09:47 | EKG REPORT ---
SEVERITY:- ABNORMAL ECG - SINUS RHYTHM PROBABLE LEFT ATRIAL ABNORMALITY PROLONGED QT INTERVAL : Confirmed by: Jessie Armenta 28-Nov-2018 09:46:15
[2018-11-28 13:20] LABS: ARTERIAL BLOOD BASE EXCESS 12.8 mmol/L; ARTERIAL BLOOD H2CO3 1.26 mmol/L (1.05-1.35); ARTERIAL BLOOD HCO3 36.3 mmol/L (20-24); ARTERIAL BLOOD O2 SATURATION 94.1 % (94-98); ARTERIAL BLOOD PCO2 41.8 mmHg (35-45); ARTERIAL BLOOD PH 7.56 (7.35-7.45); ARTERIAL BLOOD PO2 61.1 mmHg (80-100); ARTERIAL BLOOD TOTAL CO2 37.6 mmol/L (21-25)
[2018-11-28 13:21] LABS: ARTERIAL BLOOD FIO2 60%
--- NOTE | 2018-11-28 14:27 | RADIOLOGY REPORT (SQ) ---
EXAM DESCRIPTION: KUB/ABDOMEN (SINGLE VIEW) COMPLETED DATE/TIME: 11/28/2018 2:05 pm REASON FOR STUDY: OG tube placement COMPARISON: None. NUMBER OF VIEWS: One view. TECHNIQUE: Supine radiographic image of the abdomen acquired. LIMITATIONS: Lower abdomen excluded by collimation. . FINDINGS: BOWEL GAS PATTERN: Normal bowel gas pattern. No dilated loops. CALCIFICATIONS: No suspicious calcifications. SOFT TISSUES: No gross mass or suggestion of organomegaly. HARDWARE: Nasoenteric tube tip side port overlies GE junction. BONES: No acute fracture. No worrisome bone lesions. OTHER: No other significant finding. IMPRESSION: Nasoenteric tube side port overlies GE junction. Consider advancing 5 cm. TECHNICAL DOCUMENTATION: JOB ID: [id number] [employer]- All Rights Reserved Reading location - IP/workstation name: [email or web address]
[2018-11-28] MEDS: NORMAL SALINE 1000 ML 1,000 ML with POTASSIUM CHLORIDE 20 MEQ, MAGNESIUM SULFATE 8 MEQ,... IV SCH ×5 (17:24)
[2018-11-28] MEDS: PHARMACY COMMUNICATION ORDER MC SCH (18:15)
[2018-11-28] MEDS: NICOTINE 21 MG/24 HR PATCH.TD24 TD PRN (23:44)
[2018-11-29] MEDS: IPRATROPIUM BROMIDE 0.02% NEB 0.5 MG/2.5 ML AMPUL NEB SCH ×3 (00:13→16:51)
[2018-11-29] MEDS: LEVALBUTEROL HCL NEB 1.25 MG/3 ML AMPUL NEB SCH ×3 (00:13→16:51)
[2018-11-29] MEDS: PROPOFOL 1,000 MG/100 ML INFUS..BTL IV PRN ×6 (00:51→23:42)
[2018-11-29 03:27] LABS: ARTERIAL BLOOD H2CO3 1.27 mmol/L (1.05-1.35); ARTERIAL BLOOD HCO3 33.8 mmol/L (20-24); ARTERIAL BLOOD PCO2 42.1 mmHg (35-45); ARTERIAL BLOOD PH 7.52 (7.35-7.45); ARTERIAL BLOOD PO2 67.1 mmHg (80-100); ARTERIAL BLOOD TOTAL CO2 35.1 mmol/L (21-25)
[2018-11-29 03:28] LABS: ARTERIAL BLOOD FIO2 70%
[2018-11-29 04:23] LABS: ABSOLUTE EOSINOPHILS # (AUTO) 0.1 10^3/uL (0.0-0.6); ABSOLUTE LYMPHOCYTES (AUTO) 1.5 10^3/uL (0.5-4.7); ABSOLUTE MONOCYTES (AUTO) 0.5 10^3/uL (0.1-1.4); ABSOLUTE NEUT (AUTO) 3.4 10^3/uL (1.7-8.2); BASOPHILS % (AUTO) 0.5 % (0-2); EOSINOPHILS % (AUTO) 1.9 % (0-6); HEMATOCRIT 34.8 % (36.0-47.0); HEMOGLOBIN 11.1 g/dL (12.0-15.5); LYMPHOCYTES % (AUTO) 26.7 % (13-45); MEAN CORPUSCULAR HEMOGLOBIN 24.7 pg (27.0-33.4); MEAN CORPUSCULAR HGB CONC 31.9 g/dL (32.0-36.0); MEAN CORPUSCULAR VOLUME 78 fl (80-97); MONOCYTES % (AUTO) 9.1 % (3-13); PLATELET COUNT 124 10^3/uL (150-450); RED BLOOD COUNT 4.48 10^6/uL (3.72-5.28); RED CELL DISTRIBUTION WIDTH 20.7 % (11.5-14.0); SEGMENTED NEUTROPHILS % (AUTO) 61.8 % (42-78); TOTAL CELLS COUNTED % (AUTO) 100 %; WHITE BLOOD COUNT 5.6 10^3/uL (4.0-10.5)
[2018-11-29 04:32] LABS: ALBUMIN 3.2 g/dL (3.5-5.0); ALKALINE PHOSPHATASE 203 U/L (38-126); ANION GAP 12 (5-19); ASPARTATE AMINO TRANSFERASE 28 U/L (14-36); BILIRUBIN,DIRECT 3.8 mg/dL (0.0-0.4); BILIRUBIN,TOTAL 4.5 mg/dL (0.2-1.3); BLOOD UREA NITROGEN 11 mg/dL (7-20); CARBON DIOXIDE 31 mmol/L (22-30); CHLORIDE 96 mmol/L (98-107); GLUCOSE 86 mg/dL (75-110); POTASSIUM 3.6 mmol/L (3.6-5.0); TOTAL PROTEIN 6.9 g/dL (6.3-8.2)
[2018-11-29] MEDS: HEPARIN SOD (PORCINE) 5,000 UNIT/ML 1 ML VIAL SUBCUT SCH ×3 (05:22→21:52)
[2018-11-29] MEDS: PIPERACILLIN SODIUM/TAZOBACTAM 3.375 GM in NORMAL SALINE 100 ML IV SCH ×4 (05:22→23:12)
--- NOTE | 2018-11-29 08:21 | RADIOLOGY REPORT (SQ) ---
EXAM DESCRIPTION: CHEST SINGLE VIEW COMPLETED DATE/TIME: 11/29/2018 6:33 am REASON FOR STUDY: resp failure COMPARISON: 11/28/2018 EXAM PARAMETERS: NUMBER OF VIEWS: One view. TECHNIQUE: Single frontal radiographic view of the chest acquired. RADIATION DOSE: NA LIMITATIONS: None. FINDINGS: LUNGS AND PLEURA: Low lung volumes with interstitial crowding and patchy bibasilar opaciti es. No large effusion. No pneumothorax. MEDIASTINUM AND HILAR STRUCTURES: No masses. Contour normal. HEART AND VASCULAR STRUCTURES: Enlarged cardiac silhouette, stable. BONES: No acute findings. HARDWARE: Endotracheal tube tip overlies midthoracic trachea. Enteric tube tip below diaphragm but e xcluded by collimation. OTHER: No other significant finding. IMPRESSION: Low lung volumes with stable patchy bibasilar opacities, likely atelectasis. Stable support lines and tubes. TECHNICAL DOCUMENTATION: JOB ID: [id number] [email or web address]- All Rights Reserved Reading location - IP/workstation name: [email or web address]
[2018-11-29] MEDS: FUROSEMIDE INJ/PF 40 MG/4 ML SDV IV SCH (09:07)
[2018-11-29] MEDS: PANTOT AC/MIN OIL/PET HY-PHL OINT 50 GM TOP SCH ×2 (09:08→21:54)
[2018-11-29] MEDS: BUDESONIDE NEB 0.5 MG/2 ML AMPUL NEB SCH ×2 (09:24→20:51)
[2018-11-29] MEDS: PANTOPRAZOLE SODIUM 40 MG VIAL IV SCH ×2 (12:50→21:52)
--- NOTE | 2018-11-29 14:44 | PDOC CONSULTATION ---
Consultation Consult Date: 11/25/18 Attending physician:: CLAUDIO TAYLOR Provider Consulted: SHER TREJO Consult reason:: pna/resp failure History of Present Illness Admission Date/PCP: 11/25/18 06:45 History of Present Illness: ZANDER GIBBS is a 38 year old female presented to the ED via EMS complaining of abdominal distention bilateral lower extremity swelling and erythema she admits to daily alcohol consumption and daily tobacco use. She is currently intubated and sedated intensive care unit Past Medical History Cardiac Medical History: Reports: Congestive Heart Failure - Anasarca Pulmonary Medical History: Reports: Bronchitis EENT Medical History: Denies: Cataracts, Ears Neurological Medical History: Denies: Multiple Sclerosis, Seizures Endocrine Medical History: Denies: Diabetes Mellitus Type 1, Diabetes Mellitus Type 2 Renal/ Medical History: Denies: Chronic Kidney Disease, Nephrolithiasis Malignancy Medical History: Reports: None GI Medical History: Denies: Cirrhosis, Hepatitis Musculoskeltal Medical History: Denies: Arthritis, Gout Skin Medical History: Denies: Eczema, Psoriasis Psychiatric Medical History: Reports: Alcohol Dependency, Bipolar Disorder, Depression, Substance Abuse, Tobacco Dependency Traumatic Medical History: Reports: None Hematology: Reports: Anemia Denies: Bleeding Tendencies Infectious Medical History: Reports: None Past Surgical History Past Surgical History: Reports: Section Social History Information Source: [facility] Records Lives with: Alone Smoking Status: Current Every Day Smoker Passive smoke exposure as: Both Frequency of Alcohol Use: Heavy - 24 beers per day with history of seizure Hx Recreational Drug Use: Yes - No current recreational drug use Drugs: Cocaine Hx Prescription Drug Abuse: Yes - Advance Directive Resuscitation Status: Full Code Family History Family History: CAD Parental Family History Reviewed: No Children Family History Reviewed: No Sibling(s) Family History Reviewed.: No Medication/Allergy Home Medications: Famotidine [Pepcid 20 mg Tablet] 20 mg PO DAILY 11/25/18 Folic Acid [Folvite 1 mg Tablet] 1 mg PO DAILY 11/25/18 Furosemide [Lasix 40 mg Tablet] 40 mg PO DAILY 11/25/18 Lactulose [Constulose 10 gm/15 mL Oral Solution] 30 ml PO BID 11/25/18 Multivitamin [Tab-A-Audie (Multiple Vitamin) Tablet] 1 tab PO DAILY 11/25/18 Nicotine [Nicoderm 14 mg/24 Hr Transdermal Patch] 1 patch TOP DAILY 11/25/18 Spironolactone [Aldactone 100 mg Tablet] 100 mg PO DAILY 11/25/18 Allergies/Adverse Reactions: No Known Allergies Allergy (Verified 07/03/18 07:32) Review of Systems ROS unobtainable: Due to endotracheal tube, Due to mental status Physical Exam Vital Signs: Temp Pulse Resp BP Pulse Ox 99.0 F 98 16 136/94 H 97 11/25/18 09:00 11/25/18 09:00 11/25/18 09:00 11/25/18 09:00 11/25/18 09:00 Intake & Output 11/24/18 11/25/18 11/26/18 06:59 06:59 06:59 Intake Total 1345.2 Balance 1345.2 Weight 140 kg 141 kg General appearance: PRESENT: no acute distress, disheveled, morbidly obese. ABSENT: cooperative Head exam: PRESENT: atraumatic, normocephalic Eye exam: PRESENT: conjunctiva pale. ABSENT: EOMI, nystagmus, periorbital swelling, scleral icterus Mouth exam: PRESENT: dry mucosa, neck supple, tongue midline, other - ET tube in place Neck exam: ABSENT: carotid bruit, full ROM, JVD, lymphadenopathy, meningismus, t enderness, thyromegaly, tracheal deviation, tracheostomy, other Respiratory exam: PRESENT: decreased breath sounds, prolonged expiratory phas, rales, rhonchi, symmetrical, unlabored. ABSENT: retraction, stridor Cardiovascular exam: PRESENT: RRR, +S1, +S2, tachycardia Pulses: PRESENT: normal radial pulses GI/Abdominal exam: PRESENT: distended, firm, soft. ABSENT: mass, tenderness Gentrourinary exam: PRESENT: indwelling catheter Extremities exam: PRESENT: +2 edema. ABSENT: calf tenderness, clubbing, joint swelling Musculoskeletal exam: ABSENT: ambulatory, deformity, dislocation Neurological exam: ABSENT: awake Skin exam: PRESENT: dry, warm Results Laboratory Results: 11/25/18 01:58 11/25/18 01:58 11/25/18 11/25/18 11/25/18 01:58 01:58 01:58 WBC 6.5 RBC 4.61 Hgb 11.6 L Hct 36.6 MCV 79 L MCH 25.1 L MCHC 31.6 L RDW 22.1 H Plt Count 186 Seg Neutrophils % 72.0 Lymphocytes % 18.5 Monocytes % 8.1 Eosinophils % 0.8 Basophils % 0.6 Absolute Neutrophils 4.7 Absolute Lymphocytes 1.2 Absolute Monocytes 0.5 Absolute Eosinophils 0.1 Absolute Basophils 0.0 Carbonic Acid HCO3/H2CO3 Ratio ABG pH ABG pCO2 ABG pO2 ABG HCO3 ABG O2 Saturation ABG Base Excess VBG pH VBG pCO2 VBG HCO3 VBG Base Excess FiO2 Sodium 135.5 L Potassium 3.9 Chloride 91 L Carbon Dioxide 35 H Anion Gap 10 BUN 8 Creatinine 0.88 Est GFR ( Amer) > 60 Est GFR (Non-Af Amer) > 60 Glucose 85 Lactic Acid 4.2 H Calcium 8.1 L Total Bilirubin 1.1 AST 32 Alkaline Phosphatase 309 H Ammonia Total Protein 7.5 Albumin 3.2 L Free T4 Free T3 pg/mL Serum HCG, Qual Urine Color Urine Appearance Urine pH Ur Specific [place] Urine Protein Urine Glucose (UA) Urine Ketones Urine Blood Urine Nitrite Ur Leukocyte Esterase Urine WBC (Auto) Urine RBC (Auto) 11/25/18 11/25/18 11/25/18 01:58 01:58 01:58 WBC RBC Hgb Hct MCV MCH MCHC RDW Plt Count Seg Neutrophils % Lymphocytes % Monocytes % Eosinophils % Basophils % Absolute Neutrophils Absolute Lymphocytes Absolute Monocytes Absolute Eosinophils Absolute Basophils Carbonic Acid HCO3/H2CO3 Ratio ABG pH ABG pCO2 ABG pO2 ABG HCO3 ABG O2 Saturation ABG Base Excess VBG pH Cancelled VBG pCO2 Cancelled VBG HCO3 Cancelled VBG Base Excess Cancelled FiO2 Sodium Potassium Chloride Carbon Dioxide Anion Gap BUN Creatinine Est GFR ( Amer) Est GFR (Non-Af Amer) Glucose Lactic Acid Calcium Total Bilirubin AST Alkaline Phosphatase Ammonia 23.1 Total Protein Albumin Free T4 Free T3 pg/mL Serum HCG, Qual NEGATIVE Urine Color Urine Appearance Urine pH Ur Specific [place] Urine Protein Urine Glucose (UA) Urine Ketones Urine Blood Urine Nitrite Ur Leukocyte Esterase Urine WBC (Auto) Urine RBC (Auto) 11/25/18 11/25/18 11/25/18 02:09 02:18 07:39 WBC RBC Hgb Hct MCV MCH MCHC RDW Plt Count Seg Neutrophils % Lymphocytes % Monocytes % Eosinophils % Basophils % Absolute Neutrophils Absolute Lymphocytes Absolute Monocytes Absolute Eosinophils Absolute Basophils Carbonic Acid HCO3/H2CO3 Ratio ABG pH ABG pCO2 ABG pO2 ABG HCO3 ABG O2 Saturation ABG Base Excess VBG pH 7.41 VBG pCO2 55.7 VBG HCO3 34.6 H VBG Base Excess 8.2 FiO2 Sodium Potassium Chloride Carbon Dioxide Anion Gap BUN Creatinine Est GFR ( Amer) Est GFR (Non-Af Amer) Glucose Lactic Acid Calcium Total Bilirubin AST Alkaline Phosphatase Ammonia Total Protein Albumin Free T4 0.90 Free T3 pg/mL 3.43 Serum HCG, Qual Urine Color YELLOW Urine Appearance CLEAR Urine pH 5.0 Ur Specific [place] 1.006 Urine Protein NEGATIVE Urine Glucose (UA) NEGATIVE Urine Ketones NEGATIVE Urine Blood MODERATE H Urine Nitrite NEGATIVE Ur Leukocyte Esterase SMALL H Urine WBC (Auto) 4 Urine RBC (Auto) 1 11/25/18 11/25/18 11/25/18 07:39 07:39 08:58 WBC RBC Hgb Hct MCV MCH MCHC RDW Plt Count Seg Neutrophils % Lymphocytes % Monocytes % Eosinophils % Basophils % Absolute Neutrophils Absolute Lymphocytes Absolute Monocytes Absolute Eosinophils Absolute Basophils Carbonic Acid 1.73 H HCO3/H2CO3 Ratio 19:1 ABG pH 7.39 ABG pCO2 57.6 H ABG pO2 71.1 L ABG HCO3 34.2 H ABG O2 Saturation 93.8 L ABG Base Excess 7.5 VBG pH VBG pCO2 VBG HCO3 VBG Base Excess FiO2 40% Sodium Potassium Chloride Carbon Dioxide Anion Gap BUN Creatinine Est GFR ( Amer) Est GFR (Non-Af Amer) Glucose Lactic Acid Cancelled 2.2 H Calcium Total Bilirubin AST Alkaline Phosphatase Ammonia Total Protein Albumin Free T4 Free T3 pg/mL Serum HCG, Qual Urine Color Urine Appearance Urine pH Ur Specific [place] Urine Protein Urine Glucose (UA) Urine Ketones Urine Blood Urine Nitrite Ur Leukocyte Esterase Urine WBC (Auto) Urine RBC (Auto) 11/25/18 11/25/18 11/25/18 01:58 07:39 07:39 Creatine Kinase 50 CK-MB (CK-2) 0.53 Troponin I < 0.012 < 0.012 NT-Pro-B Natriuret Pep 766 H Impressions: Chest X-Ray 11/25/18 01:09 IMPRESSION: 1. No definite acute intrathoracic disease. 2. Stable elevation of the right hemidiaphragm. 3. Stable enlargement of the cardiac silhouette. Abdomen Ultrasound 11/25/18 01:12 IMPRESSION: No free fluid identified within the upper quadrants. Evaluation of the lower quadrants was limited due to patient positioning as per the technologist. Chest CT 11/25/18 03:35 IMPRESSION: 1. Endotracheal tube with tip in the right mainstem bronchus. Recommend repositioning. 2. Bilateral dependent airspace opacities may be related to atelectasis. Developing pneumonic process or pneumonitis could produce the same appearance. 3. Enlarged right axillary lymph nodes as well as a 2.7 cm inferior right breast nodule. These may be reactive however other etiology not excluded. Correlation with right breast/axillary ultrasound and possible mammography recommended. 4. Body wall anasarca. 5. Small amount of ascites. 6. Hepatic steatosis. 7. Cardiomegaly. This exam was performed according to our departmental dose-optimization program, which includes automated exposure control, adjustment of the mA and/or kV according to patient size and/or use of iterative reconstruction technique. Head CT 11/25/18 03:35 IMPRESSION: No acute intracranial findings. Abdomen/Pelvis CT 11/25/18 03:36 IMPRESSION: 1. Endotracheal tube with tip in the right mainstem bronchus. Recommend repositioning. 2. Bilateral dependent airspace opacities may be related to atelectasis. Developing pneumonic process or pneumonitis could produce the same appearance. 3. Enlarged right axillary lymph nodes as well as a 2.7 cm inferior right breast nodule. These may be reactive however other etiology not excluded. Correlation with right breast/axillary ultrasound and possible mammography recommended. 4. Body wall anasarca. 5. Small amount of ascites. 6. Hepatic steatosis. 7. Cardiomegaly. This exam was performed according to our departmental dose-optimization program, which includes automated exposure control, adjustment of the mA and/or kV according to patient size and/or use of iterative reconstruction technique. Assessment & Plan - Diagnosis (1) Acute respiratory failure with hypoxia Is this a current diagnosis for this admission?: Yes Plan: Currently elevated FiO2 requirements and elevated minute ventilation to maintain acceptable ABG (2) CHF (congestive heart failure) Is this a current diagnosis for this admission?: Yes Plan: Generalized anasarca (3) Cellulitis of both lower extremities Is this a current diagnosis for this admission?: Yes Plan: Cephalosporin or clindamycin (4) Anasarca Is this a current diagnosis for this admission?: Yes Plan: Lasix drip vs pulse dose (5) Morbid obesity with BMI of 40.0-44.9, adult Is this a current diagnosis for this admission?: Yes Plan: When stable consider nutritional consult (6) Tobacco dependence Is this a current diagnosis for this admission?: Yes Plan: Transdermal nicotine - Time Total Critical Time (Minutes): 65
--- NOTE | 2018-11-29 15:20 | PDOC CONSULTATION ---
Consultation Consult Date: 11/29/18 Provider Consulted: AMBAR JULES Consult reason:: I was asked to see the patient because of worsening kidney function. History of Present Illness Admission Date/PCP: 11/25/18 06:45 History of Present Illness: ZANDER GIBBS is a 38 year old female with history of chronic alcoholism, cocaine use, morbid obesity, bipolar disorder who presented and admitted on November 25, 2018 because of dyspnea, progressively worsening bilateral lower extremity edema and abdominal distention. Records indicate that the patient drinks alcohol every day, smokes a pack of cigarettes a day and also uses cocaine being positive on tox screen. Patient went into respiratory failure and required mechanical ventilation. Patient has an obvious anasarca so she was started to be diuresis with Lasix 40 mg IV every 8 hours initially but then her kidney function starts getting worse so now it is 20 mg IV every 12 hours. Her chest x-ray and CT scan showed bibasilar opacities and cardiomegaly. She had an echocardiogram on July 03, 2018 which showed LVEF of 65% and grade 1/4 diastolic dysfunction. She is currently on IV antibiotics for possible infectious consolidation or pneumonia. She is currently on IV Zosyn. She was initially given IV vancomycin given from November 25- with vancomycin trough level of 30.7 on November 27 so it was discontinued. In terms of the patient's kidney function and admission she had a BUN of 8, creatinine of 0.88 with a EGFR of greater than 60. Her kidney function is slowly deteriorated every day and today she had a BUN of 11, creatinine of 1.73 with EGFR of 40. She is nonoliguric. Her cumulative intake and output is -3 L for the last few days. She had a CT scan of the chest and abdomen with IV contrast on November 25. There was no hydronephrosis on the CT scan. Patient's liver enzymes are so far within acceptable limit except for elevated alkaline phosphatase. Blood pressure is within acceptable limits. Most recent ABG showed a pH of 7.52 with bicarb of 33.8. Her serum bicarb has actually gone down from admission of 35 which peaked at 39 after couple of days of Lasix and now down to 31. Patient's albumin is 3+. She has received IV albumin for the first 3 days of admission. Patient remains to be currently intubated. Past Medical History Past Medical History: All the rest of the history are based on medical records obtained initially prior to intubation. Currently there are nobody else who can provide other histories. Pulmonary Medical History: Reports: Bronchitis Psychiatric Medical History: Reports: Alcohol Dependency, Bipolar Disorder, Depression, Substance Abuse, Tobacco Dependency Past Surgical History Past Surgical History: Reports: Section Social History Information Source: [facility] Records Lives with: Alone Smoking Status: Current Every Day Smoker Cigarettes Packs Per Day: 1 Frequency of Alcohol Use: Heavy - 24 beers per day with history of seizure Hx Recreational Drug Use: Yes - No current recreational drug use Drugs: Cocaine Hx Prescription Drug Abuse: Yes - Advance Directive Resuscitation Status: Full Code Family History Family History: On unable to obtain from patient being intubated and sedated currently. Parental Family History Reviewed: No Children Family History Reviewed: No Sibling(s) Family History Reviewed.: No Medication/Allergy Home Medications: Famotidine [Pepcid 20 mg Tablet] 20 mg PO DAILY 11/25/18 Folic Acid [Folvite 1 mg Tablet] 1 mg PO DAILY 11/25/18 Furosemide [Lasix 40 mg Tablet] 40 mg PO DAILY 11/25/18 Lactulose [Constulose 10 gm/15 mL Oral Solution] 30 ml PO BID 11/25/18 Multivitamin [Tab-A-Audie (Multiple Vitamin) Tablet] 1 tab PO DAILY 11/25/18 Nicotine [Nicoderm 14 mg/24 Hr Transdermal Patch] 1 patch TOP DAILY 11/25/18 Spironolactone [Aldactone 100 mg Tablet] 100 mg PO DAILY 11/25/18 Allergies/Adverse Reactions: No Known Allergies Allergy (Verified 07/03/18 07:32) Review of Systems ROS unobtainable: Due to endotracheal tube, Due to mental status Physical Exam Vital Signs: Temp Pulse Resp BP Pulse Ox 98.1 F 80 16 114/73 94 11/29/18 12:00 11/29/18 14:00 11/29/18 14:00 11/29/18 14:00 11/29/18 14:00 Intake & Output 11/28/18 11/29/18 11/30/18 06:59 06:59 06:59 Intake Total 2583 2678 71 Output Total 2601 7840 445 Balance -1008 -15 -374 Weight 138.3 kg 138.6 kg Exam: General appearance: Intubated and sedated, morbidly obese Head exam: PRESENT: atraumatic, normocephalic Eye exam: PRESENT: Eyes are closed Mouth exam: PRESENT: ET tube in place Neck exam: ABSENT: carotid bruit, JVD, lymphadenopathy, thyromegaly Respiratory exam: PRESENT: Diminished to auscultation bilaterally. ABSENT: rales, rhonchi, stridor, wheezes Cardiovascular exam: PRESENT: RRR, +S1, +S2. ABSENT: systolic murmur Pulses: PRESENT: normal radial pulses, normal dorsalis pedis pulses GI/Abdominal exam: PRESENT: normal bowel sounds, soft. Obese. Significant subcutaneous edema with very tight skin ABSENT: guarding, mass, tenderness Rectal exam: Deferred Extremities exam: PRESENT: Positive anasarca with bilateral upper and lower extremities grade 3 edema ABSENT: calf tenderness Musculoskeletal: PRESENT: full ROM. ABSENT: deformity Neurological exam: PRESENT: Intubated and sedated Psychiatric exam: PRESENT: Cannot be assessed at this time Skin exam: PRESENT: intact, dry, warm. ABSENT: rash Results Laboratory Results: 11/29/18 03:54 11/29/18 03:54 11/29/18 11/29/18 11/29/18 03:13 03:54 03:54 WBC 5.6 RBC 4.48 Hgb 11.1 L Hct 34.8 L MCV 78 L MCH 24.7 L MCHC 31.9 L RDW 20.7 H Plt Count 124 L Seg Neutrophils % 61.8 Lymphocytes % 26.7 Monocytes % 9.1 Eosinophils % 1.9 Basophils % 0.5 Absolute Neutrophils 3.4 Absolute Lymphocytes 1.5 Absolute Monocytes 0.5 Absolute Eosinophils 0.1 Absolute Basophils 0.0 Carbonic Acid 1.27 HCO3/H2CO3 Ratio 26:1 ABG pH 7.52 H ABG pCO2 42.1 ABG pO2 67.1 L ABG HCO3 33.8 H ABG O2 Saturation 95.0 ABG Base Excess 10.0 FiO2 70% Sodium 139.1 Potassium 3.6 Chloride 96 L Carbon Dioxide 31 H Anion Gap 12 BUN 11 Creatinine 1.73 H Est GFR ( Amer) 40 L Est GFR (Non-Af Amer) 33 L Glucose 86 Lactic Acid Calcium 8.0 L Magnesium 1.9 Total Bilirubin 4.5 H AST 28 Alkaline Phosphatase 203 H Total Protein 6.9 Albumin 3.2 L Triglycerides 11/29/18 11/29/18 03:54 10:50 WBC RBC Hgb Hct MCV MCH MCHC RDW Plt Count Seg Neutrophils % Lymphocytes % Monocytes % Eosinophils % Basophils % Absolute Neutrophils Absolute Lymphocytes Absolute Monocytes Absolute Eosinophils Absolute Basophils Carbonic Acid HCO3/H2CO3 Ratio ABG pH ABG pCO2 ABG pO2 ABG HCO3 ABG O2 Saturation ABG Base Excess FiO2 Sodium Potassium Chloride Carbon Dioxide Anion Gap BUN Creatinine Est GFR ( Amer) Est GFR (Non-Af Amer) Glucose Lactic Acid 0.9 Calcium Magnesium Total Bilirubin AST Alkaline Phosphatase Total Protein Albumin Triglycerides 241 H 11/25/18 11/25/18 11/25/18 01:58 07:39 07:39 Creatine Kinase 50 CK-MB (CK-2) 0.53 Troponin I < 0.012 < 0.012 NT-Pro-B Natriuret Pep 766 H 11/25/18 11/25/18 11/25/18 12:03 12:03 18:17 Creatine Kinase 37 29 L CK-MB (CK-2) 0.37 Troponin I < 0.012 NT-Pro-B Natriuret Pep 11/25/18 11/26/18 18:17 03:32 Creatine Kinase CK-MB (CK-2) < 0.22 Troponin I < 0.012 NT-Pro-B Natriuret Pep 490 H Impressions: Abdomen Ultrasound 11/25/18 01:12 IMPRESSION: No free fluid identified within the upper quadrants. Evaluation of the lower quadrants was limited due to patient positioning as per the technologist. Abdomen/Pelvis CT 11/25/18 03:36 IMPRESSION: 1. Endotracheal tube with tip in the right mainstem bronchus. Recommend repositioning. 2. Bilateral dependent airspace opacities may be related to atelectasis. Developing pneumonic process or pneumonitis could produce the same appearance. 3. Enlarged right axillary lymph nodes as well as a 2.7 cm inferior right breast nodule. These may be reactive however other etiology not excluded. Correlation with right breast/axillary ultrasound and possible mammography recommended. 4. Body wall anasarca. 5. Small amount of ascites. 6. Hepatic steatosis. 7. Cardiomegaly. This exam was performed according to our departmental dose-optimization program, which includes automated exposure control, adjustment of the mA and/or kV according to patient size and/or use of iterative reconstruction technique. Chest CT 11/27/18 00:00 IMPRESSION: The endotracheal tube remains in low position. The tip of the tube is 1 cm above the kirill. Small pleural effusions. Airspace disease in both lower lobes and in the right middle lobe. Atelectasis versus pneumonia. Cardiomegaly. No adam pulmonary edema. Head CT 11/27/18 00:00 IMPRESSION: Sinus disease. No acute intracranial imaging findings. EVIDENCE OF ACUTE STROKE: NO. KUB X-Ray 11/28/18 00:00 IMPRESSION: Nasoenteric tube side port overlies GE junction. Consider advancing 5 cm. Chest X-Ray 11/29/18 06:00 IMPRESSION: Low lung volumes with stable patchy bibasilar opacities, likely atelectasis. Stable support lines and tubes. Assessment & Plan - Diagnosis (1) Acute kidney injury Is this a current diagnosis for this admission?: Yes Plan: Patient is currently nonoliguric. This is most likely secondary to prerenal factors including diuresis which on the other hand is necessary for this patient with severe anasarca. In an effort to diurese the patient and reduce anasarca I think we expect the patient's kidney function to worsen as it is currently. Initial urinalysis did not show any proteinuria so I doubt that this is nephrotic syndrome causing the anasarca. Nevertheless I am going to check her urine for protein creatinine and sent for protein electrophoresis as well. Patient does not have any hydronephrosis. At this time the patient does not need any renal replacement therapy. Continue to monitor patient's kidney function and electrolytes. (2) Acute respiratory failure with hypoxia Is this a current diagnosis for this admission?: Yes (3) Anasarca Is this a current diagnosis for this admission?: Yes Plan: Most likely cause of this would be secondary to an underlying developing alcoholic liver disease given the patient's history. Again doubt renal nephrotic syndrome but will check for proteinuria. Patient would need to slow diuresis given her condition. I think we can try a slow Lasix drip for diuresis rather than IV boluses and see if that would be better for patient. I would also continue to give him IV albumin daily to help with fluid shifts with diuresis. (4) Edema due to hypoalbuminemia Is this a current diagnosis for this admission?: Yes Plan: Give intravenous albumin daily. If on tube feedings may give Beneprotein powder on tube feedings. (5) Alcohol dependence Qualifiers: Substance use status: unspecified alcohol-induced disorder Qualified Code(s): F10.29 - Alcohol dependence with unspecified alcohol-induced disorder Is this a current diagnosis for this admission?: Yes (6) Metabolic alkalosis Is this a current diagnosis for this admission?: Yes Plan: Needs to slow down diuresis in a way that we can still effectively decrease her anasarca. (7) Cocaine use Is this a current diagnosis for this admission?: Yes (8) Morbid obesity with BMI of 45.0-49.9, adult Is this a current diagnosis for this admission?: Yes - Notes Notes: Discussed the case with Dr. Woo. Thank you very much for this consultation. We will follow the patient with you. - Time Time Spent: Greater than 70 Minutes
[2018-11-29] MEDS ORDERED: ALBUMIN HUMAN 12.5 GM/50 ML RTUINJ IV SCH (16:00)
[2018-11-29] MEDS: PHARMACY COMMUNICATION ORDER MC SCH (17:01)
--- NOTE | 2018-11-29 17:02 | PDOC PROGRESS REPORT ---
Subjective Progress Note for:: 11/29/18 Subjective:: Seen on rounds this morning in the ICU and ventilator dependent. She is unresponsive, no overnight events reported to me by nursing. Reason For Visit: ACUTE RESPIRATORY FAILURE WITH HYPOXIA Physical Exam Vital Signs: Temp Pulse Resp BP Pulse Ox 98.1 F 80 16 114/73 94 11/29/18 12:00 11/29/18 14:00 11/29/18 14:00 11/29/18 14:00 11/29/18 14:00 Intake & Output 11/28/18 11/29/18 11/30/18 06:59 06:59 06:59 Intake Total 2717 2420 171 Output Total 3728 2435 445 Balance -1008 -15 -274 Weight 304 lb 14.389 oz 305 lb 8.971 oz General appearance: PRESENT: morbidly obese Head exam: PRESENT: atraumatic, normocephalic Ear exam: PRESENT: normal external ear exam Mouth exam: PRESENT: other - ET tube noted Neck exam: ABSENT: tracheal deviation Respiratory exam: PRESENT: decreased breath sounds - ? Body habitus, symmetrical Cardiovascular exam: PRESENT: +S1, +S2 Pulses: PRESENT: +1 pedal pulses bilateral GI/Abdominal exam: PRESENT: distended, firm, hypoactive bowel sounds, other - GI tube noted Obese abdomen Gentrourinary exam: PRESENT: other - Blank noted Extremities exam: PRESENT: other - Anasarca-edema of upper and lower extremity along with her abdomen Neurological exam: PRESENT: other - Sedated and unresponsive Skin exam: PRESENT: dry, warm Results Laboratory Results: 11/29/18 03:54 11/29/18 03:54 11/29/18 11/29/18 11/29/18 03:13 03:54 03:54 WBC 5.6 RBC 4.48 Hgb 11.1 L Hct 34.8 L MCV 78 L MCH 24.7 L MCHC 31.9 L RDW 20.7 H Plt Count 124 L Seg Neutrophils % 61.8 Lymphocytes % 26.7 Monocytes % 9.1 Eosinophils % 1.9 Basophils % 0.5 Absolute Neutrophils 3.4 Absolute Lymphocytes 1.5 Absolute Monocytes 0.5 Absolute Eosinophils 0.1 Absolute Basophils 0.0 Carbonic Acid 1.27 HCO3/H2CO3 Ratio 26:1 ABG pH 7.52 H ABG pCO2 42.1 ABG pO2 67.1 L ABG HCO3 33.8 H ABG O2 Saturation 95.0 ABG Base Excess 10.0 FiO2 70% Sodium 139.1 Potassium 3.6 Chloride 96 L Carbon Dioxide 31 H Anion Gap 12 BUN 11 Creatinine 1.73 H Est GFR ( Amer) 40 L Est GFR (Non-Af Amer) 33 L Glucose 86 Lactic Acid Calcium 8.0 L Magnesium 1.9 Total Bilirubin 4.5 H AST 28 Alkaline Phosphatase 203 H Total Protein 6.9 Albumin 3.2 L Triglycerides 11/29/18 11/29/18 03:54 10:50 WBC RBC Hgb Hct MCV MCH MCHC RDW Plt Count Seg Neutrophils % Lymphocytes % Monocytes % Eosinophils % Basophils % Absolute Neutrophils Absolute Lymphocytes Absolute Monocytes Absolute Eosinophils Absolute Basophils Carbonic Acid HCO3/H2CO3 Ratio ABG pH ABG pCO2 ABG pO2 ABG HCO3 ABG O2 Saturation ABG Base Excess FiO2 Sodium Potassium Chloride Carbon Dioxide Anion Gap BUN Creatinine Est GFR ( Amer) Est GFR (Non-Af Amer) Glucose Lactic Acid 0.9 Calcium Magnesium Total Bilirubin AST Alkaline Phosphatase Total Protein Albumin Triglycerides 241 H 11/25/18 11/25/18 11/25/18 01:58 07:39 07:39 Creatine Kinase 50 CK-MB (CK-2) 0.53 Troponin I < 0.012 < 0.012 NT-Pro-B Natriuret Pep 766 H 11/25/18 11/25/18 11/25/18 12:03 12:03 18:17 Creatine Kinase 37 29 L CK-MB (CK-2) 0.37 Troponin I < 0.012 NT-Pro-B Natriuret Pep 11/25/18 11/26/18 18:17 03:32 Creatine Kinase CK-MB (CK-2) < 0.22 Troponin I < 0.012 NT-Pro-B Natriuret Pep 490 H Impressions: Abdomen Ultrasound 11/25/18 01:12 IMPRESSION: No free fluid identified within the upper quadrants. Evaluation of the lower quadrants was limited due to patient positioning as per the technologist. Abdomen/Pelvis CT 11/25/18 03:36 IMPRESSION: 1. Endotracheal tube with tip in the right mainstem bronchus. Recommend repositioning. 2. Bilateral dependent airspace opacities may be related to atelectasis. Developing pneumonic process or pneumonitis could produce the same appearance. 3. Enlarged right axillary lymph nodes as well as a 2.7 cm inferior right breast nodule. These may be reactive however other etiology not excluded. Correlation with right breast/axillary ultrasound and possible mammography recommended. 4. Body wall anasarca. 5. Small amount of ascites. 6. Hepatic steatosis. 7. Cardiomegaly. This exam was performed according to our departmental dose-optimization program, which includes automated exposure control, adjustment of the mA and/or kV according to patient size and/or use of iterative reconstruction technique. Chest CT 11/27/18 00:00 IMPRESSION: The endotracheal tube remains in low position. The tip of the tube is 1 cm above the kirill. Small pleural effusions. Airspace disease in both lower lobes and in the right middle lobe. Atelectasis versus pneumonia. Cardiomegaly. No adam pulmonary edema. Head CT 11/27/18 00:00 IMPRESSION: Sinus disease. No acute intracranial imaging findings. EVIDENCE OF ACUTE STROKE: NO. KUB X-Ray 11/28/18 00:00 IMPRESSION: Nasoenteric tube side port overlies GE junction. Consider advancing 5 cm. Chest X-Ray 11/29/18 06:00 IMPRESSION: Low lung volumes with stable patchy bibasilar opacities, likely atelectasis. Stable support lines and tubes. Assessment and Plan - Diagnosis (1) Sepsis Qualifiers: Sepsis type: sepsis due to unspecified organism Sepsis acute organ dysfunction status: unspecified Qualified Code(s): A41.9 - Sepsis, unspecified organism Is this a current diagnosis for this admission?: Yes (2) Acute respiratory failure with hypoxia Is this a current diagnosis for this admission?: Yes (3) Alcoholism Is this a current diagnosis for this admission?: Yes (4) Cocaine use Is this a current diagnosis for this admission?: Yes (5) Pneumonia Is this a current diagnosis for this admission?: Yes (6) Anasarca Is this a current diagnosis for this admission?: Yes (7) Anemia Qualifiers: Anemia type: iron deficiency Iron deficiency anemia type: inadequate dietary iron intake Qualified Code(s): D50.8 - Other iron deficiency anemias Is this a current diagnosis for this admission?: Yes (8) Hyperbilirubinemia Is this a current diagnosis for this admission?: Yes (9) Elevated LFTs Is this a current diagnosis for this admission?: Yes (10) Breast mass in female Is this a current diagnosis for this admission?: Yes Plan: Seen on CT abdomen pelvis after admission-we will need to be followed up outpatient with possible mammogram versus ultrasound. - Time Total Critical Time (Minutes): 35 - Inpatient Certification Based on my medical assessment, after consideration of the patient's comorbidities, presenting symptoms, or acuity I expect that the services needed warrant INPATIENT care.: Yes I certify that my determination is in accordance with my understanding of Medicare's requirements for reasonable and necessary INPATIENT services [42 CFR 412.3e].: Yes Medical Necessity: Failure to Improve With Outpatient Therapy, Significant Comorbidiites Make Outpatient Treatment Too Risky, Need Close Monitoring Due to Risk of Patient Decompensation, Need For Continuous Telemetry Monitoring, Risk of Complication if Not Cared For in Hospital - Plan Summary Plan Summary: 38-year-old female 38-year-old female with a past medical history of morbid obesity, congestive heart failure, chronic alcohol use, tobacco dependence and illicit drug use, who was admitted to the ICU for respiratory failure and curre ntly is ventilator dependent. Sepsis-most likely secondary to pneumonia, chest x-ray is still showing low lung volume with stable patchy bibasilar opacities currently she is on IV Zosyn, continue with bronchial hygiene. Blood cultures so far are negative x4 days, urine cultures also negative x2 days. Acute respiratory failure with hypoxia-currently ventilator dependent, continue with ventilatory dependent protocols and avoid further ventilator associated pneumonia-continue with daily sedation vacations and weaning trials, spoke with water pump operator Dr. Ayers at bedside today. Wondering if her respiratory failure secondary purely to pneumonia versus anasarca. Check daily ABGs and repeat labs in the morning. Continue with propofol and Versed drip for now. Cocaine positive-noted SHERRI-creatinine has been trending up-most likely secondary to use of diuretics and sepsis. I have consulted nephrology today-appreciate assistance. She has anasarca and I believe that we need to diurese her but with diuretics this will cause worsening of her kidneys. I agree with nephrology that we need to start her on a diuretic drip-we do not have Bumex available in the hospital so we will start her on Lasix. Monitor I's and O's and daily weights. Elevated bilirubin and LFTs-upon initial arrival she did have CT abdomen pelvis with IV contrast, it did show hepatic steatosis, body wall anasarca, and small ascites. This is most likely secondary to to her history of alcohol abuse. It also showed a right breast mass measuring 2.7 x 2.1 cm which needs to be followed up after discharge. Alcohol abuse-noted DVT/GI prophylaxis-heparin subcu and Protonix IV
[2018-11-29] MEDS: NORMAL SALINE 1000 ML 1,000 ML with POTASSIUM CHLORIDE 20 MEQ, MAGNESIUM SULFATE 8 MEQ,... IV SCH ×5 (17:08)
[2018-11-29] MEDS ORDERED: ALBUMIN HUMAN 12.5 GM/50 ML RTUINJ IV ONE (17:30)
[2018-11-29] MEDS: NORMAL SALINE 250 ML with FUROSEMIDE 250 MG IV PRN ×2 (19:36)
[2018-11-29] MEDS: LEVALBUTEROL HCL NEB 0.63 MG/3 ML AMPUL NEB PRN (20:51)
[2018-11-30] MEDS: IPRATROPIUM BROMIDE 0.02% NEB 0.5 MG/2.5 ML AMPUL NEB SCH ×3 (00:24→16:00)
[2018-11-30] MEDS: LEVALBUTEROL HCL NEB 1.25 MG/3 ML AMPUL NEB SCH ×3 (00:24→16:00)
[2018-11-30] MEDS: PROPOFOL 1,000 MG/100 ML INFUS..BTL IV PRN ×6 (02:29→21:15)
[2018-11-30 04:20] LABS: ABSOLUTE EOSINOPHILS # (AUTO) 0.1 10^3/uL (0.0-0.6); ABSOLUTE LYMPHOCYTES (AUTO) 1.2 10^3/uL (0.5-4.7); ABSOLUTE MONOCYTES (AUTO) 0.5 10^3/uL (0.1-1.4); ABSOLUTE NEUT (AUTO) 3.2 10^3/uL (1.7-8.2); BASOPHILS % (AUTO) 0.6 % (0-2); EOSINOPHILS % (AUTO) 2.3 % (0-6); HEMOGLOBIN 11.3 g/dL (12.0-15.5); LYMPHOCYTES % (AUTO) 24.4 % (13-45); MEAN CORPUSCULAR HEMOGLOBIN 24.6 pg (27.0-33.4); MEAN CORPUSCULAR HGB CONC 31.4 g/dL (32.0-36.0); MEAN CORPUSCULAR VOLUME 78 fl (80-97); MONOCYTES % (AUTO) 9.2 % (3-13); PLATELET COUNT 118 10^3/uL (150-450); RED CELL DISTRIBUTION WIDTH 20.6 % (11.5-14.0); SEGMENTED NEUTROPHILS % (AUTO) 63.5 % (42-78); TOTAL CELLS COUNTED % (AUTO) 100 %
[2018-11-30 04:34] LABS: ARTERIAL BLOOD BASE EXCESS 8.3 mmol/L; ARTERIAL BLOOD H2CO3 1.38 mmol/L (1.05-1.35); ARTERIAL BLOOD O2 SATURATION 94.4 % (94-98); ARTERIAL BLOOD PCO2 45.9 mmHg (35-45); ARTERIAL BLOOD PH 7.47 (7.35-7.45); ARTERIAL BLOOD PO2 67.5 mmHg (80-100); ARTERIAL BLOOD TOTAL CO2 34.4 mmol/L (21-25)
[2018-11-30 04:47] LABS: ANION GAP 11 (5-19); BLOOD UREA NITROGEN 14 mg/dL (7-20); CALCIUM 8.7 mg/dL (8.4-10.2); CARBON DIOXIDE 31 mmol/L (22-30); CHLORIDE 98 mmol/L (98-107); GLUCOSE 73 mg/dL (75-110); PHOSPHORUS 5.6 mg/dL (2.5-4.5); POTASSIUM 3.7 mmol/L (3.6-5.0)
[2018-11-30] MEDS: PIPERACILLIN SODIUM/TAZOBACTAM 3.375 GM in NORMAL SALINE 100 ML IV SCH ×4 (05:15→23:30)
[2018-11-30] MEDS: HEPARIN SOD (PORCINE) 5,000 UNIT/ML 1 ML VIAL SUBCUT SCH ×3 (05:15→21:29)
[2018-11-30 06:13] LABS: UR PRO/CREAT RATIO RESULT 0.7 mg/mg (0.0-0.2); URINE CREATININE 21.4 mg/dL (16-327); URINE PROTEIN 15.6 mg/dL (<12)
[2018-11-30] MEDS: BUDESONIDE NEB 0.5 MG/2 ML AMPUL NEB SCH ×2 (07:51→20:28)
[2018-11-30] MEDS: ALBUMIN HUMAN 12.5 GM/50 ML RTUINJ IV SCH ×2 (09:17→11:31)
[2018-11-30] MEDS: PANTOT AC/MIN OIL/PET HY-PHL OINT 50 GM TOP SCH ×2 (09:18→21:28)
[2018-11-30] MEDS: PANTOPRAZOLE SODIUM 40 MG VIAL IV SCH ×2 (09:19→21:29)
--- NOTE | 2018-11-30 10:51 | RADIOLOGY REPORT (SQ) ---
EXAM DESCRIPTION: CHEST SINGLE VIEW COMPLETED DATE/TIME: 11/30/2018 7:08 am REASON FOR STUDY: pna/ COMPARISON: 11/29/2018. EXAM PARAMETERS: NUMBER OF VIEWS: One view. TECHNIQUE: Single frontal radiographic view of the chest acquired. RADIATION DOSE: NA LIMITATIONS: None. FINDINGS: LUNGS AND PLEURA: Scattered parenchymal opacities. Left lower lobe infiltrate with poor d efinition of the hemidiaphragm. Possible left pleural effusion. MEDIASTINUM AND HILAR STRUCTURES: No masses. Contour normal. HEART AND VASCULAR STRUCTURES: Stable cardiomegaly. BONES: No acute findings. HARDWARE: Stable endotracheal tube and nasogastric tube. OTHER: No other significant finding. IMPRESSION: OVERALL STABLE APPEARANCE OF THE CHEST. CARDIOMEGALY WITH LEFT LOWER LOBE CONSOLIDATION AND POSSIBLE LEFT PLEURAL EFFUSION. SCATTERED AIRSPACE DISEASE IN THE RIGHT LOWER LOBE. TECHNICAL DOCUMENTATION: JOB ID: [id number] [employer]- All Rights Reserved Reading location - IP/workstation name: [email or web address]
--- NOTE | 2018-11-30 15:56 | PDOC PROGRESS REPORT ---
Subjective Progress Note for:: 11/30/18 Subjective:: Patient patient remains to be intubated and sedated. She has good urine output with the Lasix drip. Her anasarca might be slightly better than yesterday but still very significant. Reason For Visit: ACUTE RESPIRATORY FAILURE WITH HYPOXIA Physical Exam Vital Signs: Temp Pulse Resp BP Pulse Ox 98.4 F 81 16 162/66 H 94 11/30/18 14:00 11/30/18 14:00 11/30/18 14:00 11/30/18 14:00 11/30/18 14:00 Intake & Output 11/29/18 11/30/18 12/01/18 06:59 06:59 06:59 Intake Total 2420 1864 1349 Output Total 2435 2130 1725 Balance -15 -266 -376 Weight 138.6 kg 137.6 kg Exam: General appearance: PRESENT: Patient intubated Head exam: PRESENT: atraumatic, normocephalic Eye exam: PRESENT: Eyes closed Neck exam: ABSENT: JVD Respiratory exam: PRESENT: Decreased breath sounds. ABSENT: crackles, rales, rhonchi, unlabored, wheezes Cardiovascular exam: PRESENT: Regular rate rhythm -+S1, +S2. ABSENT: diastolic murmur, systolic murmur GI/Abdominal exam: PRESENT: normal bowel sounds, soft. Abdomen with significant subcutaneous edema. ABSENT: guarding, mass, tenderness Extremities exam: Positive anasarca with grade 2 bilateral upper lower extremity edema which might be slightly better. Neurological exam: PRESENT: Sedated. Skin exam: PRESENT: dry, warm, Results Laboratory Results: 11/30/18 04:10 11/30/18 04:10 11/30/18 11/30/18 11/30/18 04:10 04:10 04:10 WBC 5.0 RBC 4.60 Hgb 11.3 L Hct 36.0 MCV 78 L MCH 24.6 L MCHC 31.4 L RDW 20.6 H Plt Count 118 L Seg Neutrophils % 63.5 Lymphocytes % 24.4 Monocytes % 9.2 Eosinophils % 2.3 Basophils % 0.6 Absolute Neutrophils 3.2 Absolute Lymphocytes 1.2 Absolute Monocytes 0.5 Absolute Eosinophils 0.1 Absolute Basophils 0.0 Carbonic Acid HCO3/H2CO3 Ratio ABG pH ABG pCO2 ABG pO2 ABG HCO3 ABG O2 Saturation ABG Base Excess FiO2 Sodium 140.3 Potassium 3.7 Chloride 98 Carbon Dioxide 31 H Anion Gap 11 BUN 14 Creatinine 1.61 H Est GFR ( Amer) 44 L Est GFR (Non-Af Amer) 36 L Glucose 73 L Calcium 8.7 Phosphorus 5.6 H Magnesium 2.1 Ammonia 37.4 H 11/30/18 04:20 WBC RBC Hgb Hct MCV MCH MCHC RDW Plt Count Seg Neutrophils % Lymphocytes % Monocytes % Eosinophils % Basophils % Absolute Neutrophils Absolute Lymphocytes Absolute Monocytes Absolute Eosinophils Absolute Basophils Carbonic Acid 1.38 H HCO3/H2CO3 Ratio 23:1 ABG pH 7.47 H ABG pCO2 45.9 H ABG pO2 67.5 L ABG HCO3 33.0 H ABG O2 Saturation 94.4 ABG Base Excess 8.3 FiO2 55% Sodium Potassium Chloride Carbon Dioxide Anion Gap BUN Creatinine Est GFR ( Amer) Est GFR (Non-Af Amer) Glucose Calcium Phosphorus Magnesium Ammonia 11/25/18 01:58 Blood Blood Culture - Final NO GROWTH IN 5 DAYS 11/25/18 02:02 Blood Blood Culture - Final NO GROWTH IN 5 DAYS 11/25/18 11/25/18 11/25/18 01:58 07:39 07:39 Creatine Kinase 50 CK-MB (CK-2) 0.53 Troponin I < 0.012 < 0.012 NT-Pro-B Natriuret Pep 766 H 11/25/18 11/25/18 11/25/18 12:03 12:03 18:17 Creatine Kinase 37 29 L CK-MB (CK-2) 0.37 Troponin I < 0.012 NT-Pro-B Natriuret Pep 11/25/18 11/26/18 18:17 03:32 Creatine Kinase CK-MB (CK-2) < 0.22 Troponin I < 0.012 NT-Pro-B Natriuret Pep 490 H Impressions: Abdomen Ultrasound 11/25/18 01:12 IMPRESSION: No free fluid identified within the upper quadrants. Evaluation of the lower quadrants was limited due to patient positioning as per the technologist. Abdomen/Pelvis CT 11/25/18 03:36 IMPRESSION: 1. Endotracheal tube with tip in the right mainstem bronchus. Recommend repositioning. 2. Bilateral dependent airspace opacities may be related to atelectasis. Developing pneumonic process or pneumonitis could produce the same appearance. 3. Enlarged right axillary lymph nodes as well as a 2.7 cm inferior right breast nodule. These may be reactive however other etiology not excluded. Correlation with right breast/axillary ultrasound and possible mammography recommended. 4. Body wall anasarca. 5. Small amount of ascites. 6. Hepatic steatosis. 7. Cardiomegaly. This exam was performed according to our departmental dose-optimization program, which includes automated exposure control, adjustment of the mA and/or kV according to patient size and/or use of iterative reconstruction technique. Chest CT 11/27/18 00:00 IMPRESSION: The endotracheal tube remains in low position. The tip of the tube is 1 cm above the kirill. Small pleural effusions. Airspace disease in both lower lobes and in the right middle lobe. Atelectasis versus pneumonia. Cardiomegaly. No adam pulmonary edema. Head CT 11/27/18 00:00 IMPRESSION: Sinus disease. No acute intracranial imaging findings. EVIDENCE OF ACUTE STROKE: NO. KUB X-Ray 11/28/18 00:00 IMPRESSION: Nasoenteric tube side port overlies GE junction. Consider advancing 5 cm. Chest X-Ray 11/30/18 06:00 IMPRESSION: OVERALL STABLE APPEARANCE OF THE CHEST. CARDIOMEGALY WITH LEFT LOWER LOBE CONSOLIDATION AND POSSIBLE LEFT PLEURAL EFFUSION. SCATTERED AIRSPACE DISEASE IN THE RIGHT LOWER LOBE. Assessment & Plan - Diagnosis (1) Acute kidney injury Is this a current diagnosis for this admission?: Yes Plan: Patient is currently nonoliguric. Positive response to Lasix drip. Creatinine slightly better at 1.6 from 1.7 yesterday. Continue current management. Continue to monitor. (2) Acute respiratory failure with hypoxia Is this a current diagnosis for this admission?: Yes (3) Anasarca Is this a current diagnosis for this admission?: Yes Plan: Likely secondary to developing alcoholic liver disease with hypoalbuminemia. Urine protein to creatinine ratio is only 0.7 which is sub-nephrotic and unlikely to cause that much anasarca that she has currently. Serum protein electrophoresis pending. Continue Lasix drip with albumin. (4) Edema due to hypoalbuminemia Is this a current diagnosis for this admission?: Yes Plan: As above, continue current management. (5) Alcohol dependence Qualifiers: Substance use status: unspecified alcohol-induced disorder Qualified Code(s): F10.29 - Alcohol dependence with unspecified alcohol-induced disorder Is this a current diagnosis for this admission?: Yes (6) Metabolic alkalosis Is this a current diagnosis for this admission?: Yes Plan: Unchanged at this time. (7) Cocaine use Is this a current diagnosis for this admission?: Yes (8) Morbid obesity with BMI of 45.0-49.9, adult Is this a current diagnosis for this admission?: Yes - Time Time with patient: 15-25 minutes
--- NOTE | 2018-11-30 17:01 | PDOC PROGRESS REPORT ---
Subjective Progress Note for:: 11/30/18 - Seen on critical care rounds this morning in the ICU Subjective:: Patient remains intubated and on ventilator support. Spoke with nursing at bedside regarding patient's care and overnight events which were none. She is continued on sedation with propofol. Reason For Visit: ACUTE RESPIRATORY FAILURE WITH HYPOXIA Physical Exam Vital Signs: Temp Pulse Resp BP Pulse Ox 98.4 F 81 16 162/66 H 94 11/30/18 14:00 11/30/18 14:00 11/30/18 14:00 11/30/18 14:00 11/30/18 14:00 Intake & Output 11/29/18 11/30/18 12/01/18 06:59 06:59 06:59 Intake Total 2420 1864 1349 Output Total 2435 2130 1725 Balance -15 -174 -870 Weight 305 lb 8.971 oz 303 lb 5.697 oz General appearance: PRESENT: morbidly obese Head exam: PRESENT: atraumatic, normocephalic Eye exam: ABSENT: scleral icterus Mouth exam: PRESENT: other - ET tube noted Respiratory exam: PRESENT: decreased breath sounds - Decreased breath sounds in all lung fills-?body habitus, symmetrical Cardiovascular exam: PRESENT: +S1, +S2 Pulses: PRESENT: +1 pedal pulses bilateral GI/Abdominal exam: PRESENT: firm - Better than yesterday, hypoactive bowel sounds Extremities exam: PRESENT: other - Diffuse edema of the bilateral lower extremity and abdomen Neurological exam: PRESENT: other - Remains sedated on propofol Skin exam: PRESENT: dry, warm Results Laboratory Results: 11/30/18 04:10 11/30/18 04:10 11/30/18 11/30/18 11/30/18 04:10 04:10 04:10 WBC 5.0 RBC 4.60 Hgb 11.3 L Hct 36.0 MCV 78 L MCH 24.6 L MCHC 31.4 L RDW 20.6 H Plt Count 118 L Seg Neutrophils % 63.5 Lymphocytes % 24.4 Monocytes % 9.2 Eosinophils % 2.3 Basophils % 0.6 Absolute Neutrophils 3.2 Absolute Lymphocytes 1.2 Absolute Monocytes 0.5 Absolute Eosinophils 0.1 Absolute Basophils 0.0 Carbonic Acid HCO3/H2CO3 Ratio ABG pH ABG pCO2 ABG pO2 ABG HCO3 ABG O2 Saturation ABG Base Excess FiO2 Sodium 140.3 Potassium 3.7 Chloride 98 Carbon Dioxide 31 H Anion Gap 11 BUN 14 Creatinine 1.61 H Est GFR ( Amer) 44 L Est GFR (Non-Af Amer) 36 L Glucose 73 L Calcium 8.7 Phosphorus 5.6 H Magnesium 2.1 Ammonia 37.4 H 11/30/18 04:20 WBC RBC Hgb Hct MCV MCH MCHC RDW Plt Count Seg Neutrophils % Lymphocytes % Monocytes % Eosinophils % Basophils % Absolute Neutrophils Absolute Lymphocytes Absolute Monocytes Absolute Eosinophils Absolute Basophils Carbonic Acid 1.38 H HCO3/H2CO3 Ratio 23:1 ABG pH 7.47 H ABG pCO2 45.9 H ABG pO2 67.5 L ABG HCO3 33.0 H ABG O2 Saturation 94.4 ABG Base Excess 8.3 FiO2 55% Sodium Potassium Chloride Carbon Dioxide Anion Gap BUN Creatinine Est GFR ( Amer) Est GFR (Non-Af Amer) Glucose Calcium Phosphorus Magnesium Ammonia 11/25/18 01:58 Blood Blood Culture - Final NO GROWTH IN 5 DAYS 11/25/18 02:02 Blood Blood Culture - Final NO GROWTH IN 5 DAYS 11/25/18 11/25/18 11/25/18 01:58 07:39 07:39 Creatine Kinase 50 CK-MB (CK-2) 0.53 Troponin I < 0.012 < 0.012 NT-Pro-B Natriuret Pep 766 H 11/25/18 11/25/18 11/25/18 12:03 12:03 18:17 Creatine Kinase 37 29 L CK-MB (CK-2) 0.37 Troponin I < 0.012 NT-Pro-B Natriuret Pep 11/25/18 11/26/18 18:17 03:32 Creatine Kinase CK-MB (CK-2) < 0.22 Troponin I < 0.012 NT-Pro-B Natriuret Pep 490 H Impressions: Abdomen Ultrasound 11/25/18 01:12 IMPRESSION: No free fluid identified within the upper quadrants. Evaluation of the lower quadrants was limited due to patient positioning as per the technologist. Abdomen/Pelvis CT 11/25/18 03:36 IMPRESSION: 1. Endotracheal tube with tip in the right mainstem bronchus. Recommend repositioning. 2. Bilateral dependent airspace opacities may be related to atelectasis. Developing pneumonic process or pneumonitis could produce the same appearance. 3. Enlarged right axillary lymph nodes as well as a 2.7 cm inferior right breast nodule. These may be reactive however other etiology not excluded. Correlation with right breast/axillary ultrasound and possible mammography recommended. 4. Body wall anasarca. 5. Small amount of ascites. 6. Hepatic steatosis. 7. Cardiomegaly. This exam was performed according to our departmental dose-optimization program, which includes automated exposure control, adjustment of the mA and/or kV according to patient size and/or use of iterative reconstruction technique. Chest CT 11/27/18 00:00 IMPRESSION: The endotracheal tube remains in low position. The tip of the tube is 1 cm above the kirill. Small pleural effusions. Airspace disease in both lower lobes and in the right middle lobe. Atelectasis versus pneumonia. Cardiomegaly. No adam pulmonary edema. Head CT 11/27/18 00:00 IMPRESSION: Sinus disease. No acute intracranial imaging findings. EVIDENCE OF ACUTE STROKE: NO. KUB X-Ray 11/28/18 00:00 IMPRESSION: Nasoenteric tube side port overlies GE junction. Consider advancing 5 cm. Chest X-Ray 11/30/18 06:00 IMPRESSION: OVERALL STABLE APPEARANCE OF THE CHEST. CARDIOMEGALY WITH LEFT LOWER LOBE CONSOLIDATION AND POSSIBLE LEFT PLEURAL EFFUSION. SCATTERED AIRSPACE DISEASE IN THE RIGHT LOWER LOBE. Assessment and Plan - Diagnosis (1) Sepsis Qualifiers: Sepsis type: sepsis due to unspecified organism Sepsis acute organ dysfunction status: unspecified Qualified Code(s): A41.9 - Sepsis, unspecified organism Is this a current diagnosis for this admission?: Yes (2) Acute respiratory failure with hypoxia Is this a current diagnosis for this admission?: Yes (3) Alcoholism Is this a current diagnosis for this admission?: Yes (4) Cocaine use Is this a current diagnosis for this admission?: Yes (5) Pneumonia Is this a current diagnosis for this admission?: Yes (6) Anasarca Is this a current diagnosis for this admission?: Yes (7) Anemia Qualifiers: Anemia type: iron deficiency Iron deficiency anemia type: inadequate dietary iron intake Qualified Code(s): D50.8 - Other iron deficiency anemias Is this a current diagnosis for this admission?: Yes (8) Hyperbilirubinemia Is this a current diagnosis for this admission?: Yes (9) Elevated LFTs Is this a current diagnosis for this admission?: Yes (10) Breast mass in female Is this a current diagnosis for this admission?: Yes - Time Total Critical Time (Minutes): 35 - Inpatient Certification Based on my medical assessment, after consideration of the patient's comorb idities, presenting symptoms, or acuity I expect that the services needed warrant INPATIENT care.: Yes I certify that my determination is in accordance with my understanding of Medicare's requirements for reasonable and necessary INPATIENT services [42 CFR 412.3e].: Yes Medical Necessity: Failure to Improve With Outpatient Therapy, Significant Comorbidiites Make Outpatient Treatment Too Risky, Need Close Monitoring Due to Risk of Patient Decompensation, Need For Continuous Telemetry Monitoring, Risk of Complication if Not Cared For in Hospital - Plan Summary Plan Summary: 38-year-old female 38-year-old female with a past medical history of morbid obesity, congestive heart failure, chronic alcohol use, tobacco dependence and illicit drug use, who was admitted to the ICU for respiratory failure and currently is ventilator dependent. Sepsis-most likely secondary to pneumonia, repeat chest x-ray today showing possible left lower lobe consolidation and pleural effusion. Most likely this is secondary to her volume overload and anasarca. Please see plan for anasarca. Continue with IV Zosyn, blood cultures so far are negative, urine cultures also negative. Acute respiratory failure with hypoxia-currently ventilator dependent, continue with ventilatory dependent protocols and avoid further ventilator associated pneumonia-continue with daily sedation vacations and weaning trials, spoke with assembler installer general Dr. Ayers today. Wondering if her respiratory failure secondary purely to pneumonia versus anasarca. Check daily ABGs and repeat labs in the morning. Continue with propofol drip-Versed was weaned off. Cocaine positive-noted SHERRI-she was started on Lasix drip for her anasarca and her creatinine has been holding steady and gradually improving even on the Lasix drip. Continue to monitor her renal function. I appreciate help from nephrology. Continue with aggressive diuresis monitor I's and O's and daily weights. Anasarca-see plan above Elevated bilirubin and LFTs-upon initial arrival she did have CT abdomen pelvis with IV contrast, it did show hepatic steatosis, body wall anasarca, and small ascites. This is most likely secondary to to her history of alcohol abuse. It also showed a right breast mass measuring 2.7 x 2.1 cm which needs to be followed up after discharge. Alcohol abuse-noted DVT/GI prophylaxis-heparin subcu and Protonix IV
[2018-11-30] MEDS: NORMAL SALINE 250 ML with FUROSEMIDE 250 MG IV PRN ×2 (18:55)
[2018-11-30] MEDS: PHARMACY COMMUNICATION ORDER MC SCH (18:56)
[2018-11-30] MEDS: NORMAL SALINE 1000 ML 1,000 ML with POTASSIUM CHLORIDE 20 MEQ, MAGNESIUM SULFATE 8 MEQ,... IV SCH ×5 (18:56)
[2018-11-30] MEDS: LEVALBUTEROL HCL NEB 0.63 MG/3 ML AMPUL NEB PRN (20:28)
[2018-12-01] MEDS: LEVALBUTEROL HCL NEB 1.25 MG/3 ML AMPUL NEB SCH ×3 (00:38→16:09)
[2018-12-01] MEDS: IPRATROPIUM BROMIDE 0.02% NEB 0.5 MG/2.5 ML AMPUL NEB SCH ×3 (00:38→16:09)
[2018-12-01] MEDS: PROPOFOL 1,000 MG/100 ML INFUS..BTL IV PRN ×8 (00:42→21:53)
[2018-12-01 03:22] LABS: ARTERIAL BLOOD BASE EXCESS 8.2 mmol/L; ARTERIAL BLOOD H2CO3 1.35 mmol/L (1.05-1.35); ARTERIAL BLOOD HCO3 32.7 mmol/L (20-24); ARTERIAL BLOOD PCO2 44.8 mmHg (35-45); ARTERIAL BLOOD PH 7.48 (7.35-7.45); ARTERIAL BLOOD PO2 65.1 mmHg (80-100); ARTERIAL BLOOD TOTAL CO2 34.1 mmol/L (21-25)
[2018-12-01 03:59] LABS: ABSOLUTE BASOPHILS # (AUTO) 0.1 10^3/uL (0.0-0.2); ABSOLUTE EOSINOPHILS # (AUTO) 0.1 10^3/uL (0.0-0.6); ABSOLUTE LYMPHOCYTES (AUTO) 1.3 10^3/uL (0.5-4.7); ABSOLUTE MONOCYTES (AUTO) 0.5 10^3/uL (0.1-1.4); ABSOLUTE NEUT (AUTO) 3.1 10^3/uL (1.7-8.2); BASOPHILS % (AUTO) 1.1 % (0-2); EOSINOPHILS % (AUTO) 2.8 % (0-6); HEMATOCRIT 36.2 % (36.0-47.0); HEMOGLOBIN 11.3 g/dL (12.0-15.5); LYMPHOCYTES % (AUTO) 25.8 % (13-45); MEAN CORPUSCULAR HEMOGLOBIN 24.9 pg (27.0-33.4); MEAN CORPUSCULAR HGB CONC 31.3 g/dL (32.0-36.0); MEAN CORPUSCULAR VOLUME 79 fl (80-97); MONOCYTES % (AUTO) 10.1 % (3-13); PLATELET COUNT 151 10^3/uL (150-450); RED BLOOD COUNT 4.55 10^6/uL (3.72-5.28); RED CELL DISTRIBUTION WIDTH 20.4 % (11.5-14.0); SEGMENTED NEUTROPHILS % (AUTO) 60.2 % (42-78); TOTAL CELLS COUNTED % (AUTO) 100 %; WHITE BLOOD COUNT 5.2 10^3/uL (4.0-10.5)
[2018-12-01 04:17] LABS: ALBUMIN 3.6 g/dL (3.5-5.0); ANION GAP 13 (5-19); BLOOD UREA NITROGEN 15 mg/dL (7-20); CALCIUM 9.2 mg/dL (8.4-10.2); CARBON DIOXIDE 31 mmol/L (22-30); CHLORIDE 97 mmol/L (98-107); GLUCOSE 74 mg/dL (75-110); PHOSPHORUS 5.8 mg/dL (2.5-4.5); POTASSIUM 3.3 mmol/L (3.6-5.0)
[2018-12-01] MEDS ORDERED: POTASSI CL 20 MEQ/50 ML RIDER 20 MEQ/50 ML RTUPB IV ONE (05:56)
[2018-12-01] MEDS: PIPERACILLIN SODIUM/TAZOBACTAM 3.375 GM in NORMAL SALINE 100 ML IV SCH ×4 (05:59→23:21)
[2018-12-01] MEDS: HEPARIN SOD (PORCINE) 5,000 UNIT/ML 1 ML VIAL SUBCUT SCH ×3 (05:59→21:53)
[2018-12-01] MEDS: POTASSIUM CHLORIDE 20 MEQ/50 ML RTU IV SCH ×2 (06:20→09:09)
[2018-12-01] MEDS: BUDESONIDE NEB 0.5 MG/2 ML AMPUL NEB SCH ×2 (07:58→21:15)
--- NOTE | 2018-12-01 09:46 | RADIOLOGY REPORT (SQ) ---
EXAM DESCRIPTION: KUB/ABDOMEN (SINGLE VIEW) COMPLETED DATE/TIME: 12/01/2018 9:17 am REASON FOR STUDY: decreased bowel sounds- r/o obstruction COMPARISON: 11/28/2018. NUMBER OF VIEWS: One view. TECHNIQUE: Supine radiographic image of the abdomen acquired. LIMITATIONS: None. FINDINGS: BOWEL GAS PATTERN: Normal bowel gas pattern. No dilated loops. CALCIFICATIONS: No suspicious calcifications. SOFT TISSUES: No gross mass or suggestion of organomegaly. HARDWARE: Nasogastric tube with the tip in the stomach. BONES: No acute fracture. No worrisome bone lesions. OTHER: No other significant finding. IMPRESSION: NO RADIOGRAPHIC EVIDENCE FOR ACUTE ABDOMINAL DISEASE. TECHNICAL DOCUMENTATION: JOB ID: [id number] [email or web address]- All Rights Reserved Reading location - IP/workstation name: [email or web address]
--- NOTE | 2018-12-01 09:47 | RADIOLOGY REPORT (SQ) ---
EXAM DESCRIPTION: CHEST SINGLE VIEW COMPLETED DATE/TIME: 12/01/2018 9:17 am REASON FOR STUDY: f/u pleural effusion COMPARISON: 11/30/2018. EXAM PARAMETERS: NUMBER OF VIEWS: One view. TECHNIQUE: Single frontal radiographic view of the chest acquired. RADIATION DOSE: NA LIMITATIONS: None. FINDINGS: LUNGS AND PLEURA: Left lower lobe airspace disease and probable pleural effusion, unchange d. MEDIASTINUM AND HILAR STRUCTURES: No masses. Contour normal. HEART AND VASCULAR STRUCTURES: Stable cardiomegaly. BONES: No acute findings. HARDWARE: Stable endotracheal tube and nasogastric tube. OTHER: No other significant finding. IMPRESSION: NO CHANGE IN APPEARANCE OF THE CHEST. TECHNICAL DOCUMENTATION: JOB ID: [id number] [employer]- All Rights Reserved Reading location - IP/workstation name: [email or web address]
[2018-12-01] MEDS: PANTOT AC/MIN OIL/PET HY-PHL OINT 50 GM TOP SCH ×2 (10:10→21:54)
[2018-12-01] MEDS: POTASSI CL 20 MEQ/50 ML RIDER 20 MEQ/50 ML RTUPB IV SCH ×2 (10:10→21:55)
[2018-12-01] MEDS: PANTOPRAZOLE SODIUM 40 MG VIAL IV SCH ×2 (10:11→21:53)
--- NOTE | 2018-12-01 14:45 | PDOC PROGRESS REPORT ---
Subjective Progress Note for:: 12/01/18 Subjective:: Patient still intubated but is currently being attempted to be weaned off. She seems to be waking up with her eyes open today. She is responding very well to the Lasix drip with a urine output of 6285 mL for the past 24 hours and a -3,957 mL of fluid balance yesterday. Her kidney function is quite stable. Reason For Visit: ACUTE RESPIRATORY FAILURE WITH HYPOXIA Physical Exam Vital Signs: Temp Pulse Resp BP Pulse Ox 98.1 F 77 20 124/89 H 93 12/01/18 12:00 12/01/18 12:00 12/01/18 12:00 12/01/18 12:00 12/01/18 12:00 Intake & Output 11/30/18 12/01/18 12/02/18 06:59 06:59 06:59 Intake Total 1864 2328 1373 Output Total 2130 6285 1900 Balance -266 -3957 -527 Weight 137.6 kg 134.4 kg Exam: General appearance: PRESENT: Still intubated Head exam: PRESENT: atraumatic, normocephalic Eye exam: PRESENT: Eyes are open Neck exam: ABSENT: JVD Respiratory exam: PRESENT: Coarse breath sounds. ABSENT: crackles, rales, rhonchi, unlabored, wheezes Cardiovascular exam: PRESENT: Regular rate rhythm -+S1, +S2. ABSENT: diastolic murmur, systolic murmur GI/Abdominal exam: PRESENT: No bowel sounds, soft. Positive subcutaneous edema ABSENT: guarding, mass, tenderness Extremities exam: Very slowly improving anasarca with mildly decreased edema on both upper and lower extremities Neurological exam: PRESENT: Being weaned off sedation and seems to be mildly awake. Skin exam: PRESENT: dry, warm, Results Laboratory Results: 12/01/18 03:47 12/01/18 03:47 12/01/18 12/01/18 12/01/18 03:13 03:47 03:47 WBC 5.2 RBC 4.55 Hgb 11.3 L Hct 36.2 MCV 79 L MCH 24.9 L MCHC 31.3 L RDW 20.4 H Plt Count 151 Seg Neutrophils % 60.2 Lymphocytes % 25.8 Monocytes % 10.1 Eosinophils % 2.8 Basophils % 1.1 Absolute Neutrophils 3.1 Absolute Lymphocytes 1.3 Absolute Monocytes 0.5 Absolute Eosinophils 0.1 Absolute Basophils 0.1 Carbonic Acid 1.35 HCO3/H2CO3 Ratio 24:1 ABG pH 7.48 H ABG pCO2 44.8 ABG pO2 65.1 L ABG HCO3 32.7 H ABG O2 Saturation 94.0 ABG Base Excess 8.2 FiO2 55% Sodium 141.3 Potassium 3.3 L Chloride 97 L Carbon Dioxide 31 H Anion Gap 13 BUN 15 Creatinine 1.65 H Est GFR ( Amer) 43 L Est GFR (Non-Af Amer) 35 L Glucose 74 L Calcium 9.2 Phosphorus 5.8 H Magnesium 2.0 Albumin 3.6 11/25/18 11/25/18 11/25/18 01:58 07:39 07:39 Creatine Kinase 50 CK-MB (CK-2) 0.53 Troponin I < 0.012 < 0.012 NT-Pro-B Natriuret Pep 766 H 11/25/18 11/25/18 11/25/18 12:03 12:03 18:17 Creatine Kinase 37 29 L CK-MB (CK-2) 0.37 Troponin I < 0.012 NT-Pro-B Natriuret Pep 11/25/18 11/26/18 18:17 03:32 Creatine Kinase CK-MB (CK-2) < 0.22 Troponin I < 0.012 NT-Pro-B Natriuret Pep 490 H Impressions: Abdomen Ultrasound 11/25/18 01:12 IMPRESSION: No free fluid identified within the upper quadrants. Evaluation of the lower quadrants was limited due to patient positioning as per the technologist. Abdomen/Pelvis CT 11/25/18 03:36 IMPRESSION: 1. Endotracheal tube with tip in the right mainstem bronchus. Recommend repositioning. 2. Bilateral dependent airspace opacities may be related to atelectasis. Developing pneumonic process or pneumonitis could produce the same appearance. 3. Enlarged right axillary lymph nodes as well as a 2.7 cm inferior right breast nodule. These may be reactive however other etiology not excluded. Correlation with right breast/axillary ultrasound and possible mammography recommended. 4. Body wall anasarca. 5. Small amount of ascites. 6. Hepatic steatosis. 7. Cardiomegaly. This exam was performed according to our departmental dose-optimization program, which includes automated exposure control, adjustment of the mA and/or kV according to patient size and/or use of iterative reconstruction technique. Chest CT 11/27/18 00:00 IMPRESSION: The endotracheal tube remains in low position. The tip of the tube is 1 cm above the kirill. Small pleural effusions. Airspace disease in both lower lobes and in the right middle lobe. Atelectasis versus pneumonia. Cardiomegaly. No adam pulmonary edema. Head CT 11/27/18 00:00 IMPRESSION: Sinus disease. No acute intracranial imaging findings. EVIDENCE OF ACUTE STROKE: NO. Chest X-Ray 12/01/18 00:00 IMPRESSION: NO CHANGE IN APPEARANCE OF THE CHEST. KUB X-Ray 12/01/18 00:00 IMPRESSION: NO RADIOGRAPHIC EVIDENCE FOR ACUTE ABDOMINAL DISEASE. Assessment & Plan - Diagnosis (1) Acute kidney injury Is this a current diagnosis for this admission?: Yes Plan: Patient is currently nonoliguric. Positive response to Lasix drip. Kidney function stable so far. Continue current management. Continue to monitor. No need of renal replacement therapy at this time yet. (2) Acute respiratory failure with hypoxia Is this a current diagnosis for this admission?: Yes (3) Anasarca Is this a current diagnosis for this admission?: Yes Plan: Likely secondary to developing alcoholic liver disease with hypoalbuminemia. Urine protein to creatinine ratio is only 0.7 which is sub-nephrotic and unlikely to cause that much anasarca that she has currently. Serum protein electrophoresis pending. Continue Lasix drip . (4) Edema due to hypoalbuminemia Is this a current diagnosis for this admission?: Yes Plan: As above, continue current management. Albumin improved today. (5) Alcohol dependence Qualifiers: Substance use status: unspecified alcohol-induced disorder Qualified Code(s): F10.29 - Alcohol dependence with unspecified alcohol-induced disorder Is this a current diagnosis for this admission?: Yes (6) Metabolic alkalosis Is this a current diagnosis for this admission?: Yes Plan: Unchanged at this time. (7) Hypokalemia Is this a current diagnosis for this admission?: Yes Plan: Replace per electrolyte protocol. (8) Cocaine use Is this a current diagnosis for this admission?: Yes (9) Morbid obesity with BMI of 45.0-49.9, adult Is this a current diagnosis for this admission?: Yes - Time Time with patient: 15-25 minutes
[2018-12-01 15:36] LABS: A/G RATIO 0.8 (0.7-1.7); ALPHA-2-GLOBULIN 2 0.7 g/dL (0.4-1.0); BETA GLOBULINS 0.9 g/dL (0.7-1.3); GAMMA GLOBULIN 2.1 g/dL (0.4-1.8); MONOCLONAL SPIKE Not Observed g/dL (Not Observ)
--- NOTE | 2018-12-01 16:15 | PDOC PROGRESS REPORT ---
Subjective Progress Note for:: 12/01/18 - Remains intubated in the ICU Subjective:: Saw patient on rounds this morning-she remains intubated-no overnight events noted to me per nursing. Remains afebrile. Reason For Visit: ACUTE RESPIRATORY FAILURE WITH HYPOXIA Physical Exam Vital Signs: Temp Pulse Resp BP Pulse Ox 98.1 F 82 24 H 126/89 H 94 12/01/18 14:00 12/01/18 14:00 12/01/18 14:00 12/01/18 14:00 12/01/18 14:00 Intake & Output 11/30/18 12/01/18 12/02/18 06:59 06:59 06:59 Intake Total 1864 8458 1373 Output Total 2134 7135 9570 Balance -248 -4031 -1915 Weight 303 lb 5.697 oz 296 lb 4.82 oz General appearance: PRESENT: morbidly obese Head exam: PRESENT: atraumatic, normocephalic Eye exam: ABSENT: scleral icterus Ear exam: PRESENT: normal external ear exam Mouth exam: PRESENT: moist, other - ET tube noted Neck exam: ABSENT: tracheal deviation Respiratory exam: PRESENT: decreased breath sounds - Bilaterally in all lung [place], symmetrical Cardiovascular exam: PRESENT: +S1, +S2 Pulses: PRESENT: +1 pedal pulses bilateral GI/Abdominal exam: PRESENT: diminished bowel sounds, soft Gentrourinary exam: PRESENT: other - Blank noted with good urine output Extremities exam: PRESENT: +2 edema - Bilateral lower extremity [id number]-hljayazn-[id number] wall edema Neurological exam: PRESENT: other - Remains intubated and unresponsive-does retract pain when sedation is turned down Skin exam: PRESENT: dry, warm Results Laboratory Results: 12/01/18 03:47 12/01/18 03:47 12/01/18 12/01/18 12/01/18 03:13 03:47 03:47 WBC 5.2 RBC 4.55 Hgb 11.3 L Hct 36.2 MCV 79 L MCH 24.9 L MCHC 31.3 L RDW 20.4 H Plt Count 151 Seg Neutrophils % 60.2 Lymphocytes % 25.8 Monocytes % 10.1 Eosinophils % 2.8 Basophils % 1.1 Absolute Neutrophils 3.1 Absolute Lymphocytes 1.3 Absolute Monocytes 0.5 Absolute Eosinophils 0.1 Absolute Basophils 0.1 Carbonic Acid 1.35 HCO3/H2CO3 Ratio 24:1 ABG pH 7.48 H ABG pCO2 44.8 ABG pO2 65.1 L ABG HCO3 32.7 H ABG O2 Saturation 94.0 ABG Base Excess 8.2 FiO2 55% Sodium 141.3 Potassium 3.3 L Chloride 97 L Carbon Dioxide 31 H Anion Gap 13 BUN 15 Creatinine 1.65 H Est GFR ( Amer) 43 L Est GFR (Non-Af Amer) 35 L Glucose 74 L Calcium 9.2 Phosphorus 5.8 H Magnesium 2.0 Albumin 3.6 11/25/18 11/25/18 11/25/18 01:58 07:39 07:39 Creatine Kinase 50 CK-MB (CK-2) 0.53 Troponin I < 0.012 < 0.012 NT-Pro-B Natriuret Pep 766 H 11/25/18 11/25/18 11/25/18 12:03 12:03 18:17 Creatine Kinase 37 29 L CK-MB (CK-2) 0.37 Troponin I < 0.012 NT-Pro-B Natriuret Pep 11/25/18 11/26/18 18:17 03:32 Creatine Kinase CK-MB (CK-2) < 0.22 Troponin I < 0.012 NT-Pro-B Natriuret Pep 490 H Impressions: Abdomen Ultrasound 11/25/18 01:12 IMPRESSION: No free fluid identified within the upper quadrants. Evaluation of the lower quadrants was limited due to patient positioning as per the technologist. Abdomen/Pelvis CT 11/25/18 03:36 IMPRESSION: 1. Endotracheal tube with tip in the right mainstem bronchus. Recommend repositioning. 2. Bilateral dependent airspace opacities may be related to atelectasis. Developing pneumonic process or pneumonitis could produce the same appearance. 3. Enlarged right axillary lymph nodes as well as a 2.7 cm inferior right breast nodule. These may be reactive however other etiology not excluded. Correlation with right breast/axillary ultrasound and possible mammography recommended. 4. Body wall anasarca. 5. Small amount of ascites. 6. Hepatic steatosis. 7. Cardiomegaly. This exam was performed according to our departmental dose-optimization program, which includes automated exposure control, adjustment of the mA and/or kV according to patient size and/or use of iterative reconstruction technique. Chest CT 11/27/18 00:00 IMPRESSION: The endotracheal tube remains in low position. The tip of the tube is 1 cm above the kirill. Small pleural effusions. Airspace disease in both lower lobes and in the right middle lobe. Atelectasis versus pneumonia. Cardiomegaly. No adam pulmonary edema. Head CT 11/27/18 00:00 IMPRESSION: Sinus disease. No acute intracranial imaging findings. EVIDENCE OF ACUTE STROKE: NO. Chest X-Ray 12/01/18 00:00 IMPRESSION: NO CHANGE IN APPEARANCE OF THE CHEST. KUB X-Ray 12/01/18 00:00 IMPRESSION: NO RADIOGRAPHIC EVIDENCE FOR ACUTE ABDOMINAL DISEASE. Assessment and Plan - Diagnosis (1) Sepsis Qualifiers: Sepsis type: sepsis due to unspecified organism Sepsis acute organ dysfunction status: unspecified Qualified Code(s): A41.9 - Sepsis, unspecified organism Is this a current diagnosis for this admission?: Yes (2) Acute respiratory failure with hypoxia Is this a current diagnosis for this admission?: Yes (3) Alcoholism Is this a current diagnosis for this admission?: Yes (4) Cocaine use Is this a current diagnosis for this admission?: Yes (5) Pneumonia Is this a current diagnosis for this admission?: Yes (6) Anasarca Is this a current diagnosis for this admission?: Yes (7) Anemia Qualifiers: Anemia type: iron deficiency Iron deficiency anemia type: inadequate dietary iron intake Qualified Code(s): D50.8 - Other iron deficiency anemias Is this a current diagnosis for this admission?: Yes (8) Hyperbilirubinemia Is this a current diagnosis for this admission?: Yes (9) Elevated LFTs Is this a current diagnosis for this admission?: Yes (10) Breast mass in female Is this a current diagnosis for this admission?: Yes - Time Time Spent with patient: 35 or more minutes Anticipated discharge: Acute Rehab - Plan Summary Plan Summary: 38-year-old female 38-year-old female with a past medical history of morbid obesity, congestive heart failure, chronic alcohol use, tobacco dependence and illicit drug use, who was admitted to the ICU for respiratory failure and currently is ventilator dependent. Sepsis-most likely secondary to pneumonia, repeat chest x-ray today showing possible left lower lobe consolidation and pleural effusion. Most likely this is secondary to her volume overload and anasarca. Please see plan for anasarca. Continue with IV Zosyn, blood cultures so far are negative, urine cultures also negative. Acute respiratory failure with hypoxia-currently ventilator dependent, continue with ventilatory dependent protocols and avoid ventilator associated pneumonia- continue with daily sedation vacations and weaning trials, spoke with school traffic guard Dr. Ayers today. Wondering if her respiratory failure secondary purely to pneumonia versus anasarca. Check daily ABGs and repeat labs in the morning. Continue with propofol drip-Versed was weaned off. Cocaine positive-noted SHERRI-continue with Lasix drip-appreciate help from nephrology-I did speak with Dr Johnson today from nephrology regarding patient's care. She is having good urine output-continue with aggressive diuresis and monitor I's and O's and daily weights. Her potassium has been dipping and nursing has protocol for potassium repletion. Anasarca-see plan above-her bowel sounds are diminished today and I was concerned about a obstruction-I did get a KUB and it is showing no signs of obstruction at this time. Her tube feeds have been held and I have decreased her IV fluid volume for now. Elevated bilirubin and LFTs-upon initial arrival she did have CT abdomen pelvis with IV contrast, it did show hepatic steatosis, body wall anasarca, and small ascites. This is most likely secondary to to her history of alcohol abuse. It also showed a right breast mass measuring 2.7 x 2.1 cm which needs to be followed up after discharge. Alcohol abuse-noted DVT/GI prophylaxis-heparin subcu and Protonix IV Disposition-given her condition this will be a difficult weaning. For her-we will continue to work with her but she has already been on the vent for almost 1 week now.
--- NOTE | 2018-12-01 16:38 | Progress Note ---
Provider Note Provider Note: ID Consult Note Asked by Pharmacy to review patient's chart. Pt not seen or examined. Ms. Pimentel is 38 year old woman with PMH including morbid obesity, bipolar disorder, depression, alcohol dependence and cocaine use who presented to the [facility] ED on 11/25/18 with c/o progressive abdominal swelling, SOB, and BLE swelling with redness. She had a similar presentation in June 2018 with lower extremity and abdominal swelling associated with increased SOB and required management at that time for hypercapneic respiratory failure and anasarca but refused behavioral health referrals. In the ED on 11/25 she denied having fever, chills, CP, and cough. She admitted to continued alcohol abuse. On exam, she was afebrile, had an unkept appearance, diminished breath sounds bilaterally, distended abdomen with generalized tenderness upon palpation, 4+ pitting edema to mid-back, and erythematous patches to BLE with a leathery texture to the skin. She became progressively more dyspneic while being given fluids in the ED and evaluated and ultimately required intubation and mechanical ventilation. No sputum could be obtained with endotracheal suctioning and subsequently only small amounts of thick yellow or white secretions have been noted by respiratory therapists or, again, no sputum. Initial labs included normal WBC count, microcytic anemia, normal plt count, low chloride, elevated bicarb, elevated lactic acid. No pyuria on U/A. Initial imaging included US that showed no free abdominal fluid, CXR that showed stable cardiomegaly and no acute intrathoracic disease, chest CT read as showing dependent bilateral airspace opacities potentially related to atelectasis vs developing pneumonitis or other pneumonic process, body wall anasarca, small amount of ascites, cardiomegaly and hepatic steatosis. As an inpatient she has remained intubated and mechanically ventilated. She has continued to have no fever or leukocytosis. Blood cultures have been negative. Repeat chest imaging has included CXR 11/26 - persistent mild opacities, b/l effusions, fluid infissure, vascular congestion Chest CT 11/27 - small b/l effusions, opacification of both lower lowbes with air bronchograms consistent with atelectasis vs pneumonia CXR 11/28 - improved aeration, decreased interstitial opacities, persistent L retrocardiac opacity, possible atelectasis vs infection CXR 8/14 - low lung volumes with patchy bibasilar opacities, likely atelectasis Impression/Recommendations The patient has been receiving IV Zosyn empirically since 11/26. for a diagnosis of pneumonia. Today is day 6. Consider discontinuing Zosyn. - For CAP, typically 5-7 days of antibiotics should be sufficient in absence of pyogenic complications (e.g. lung abscess, empyema). - Also, at least from chart review, in retrospect it is not clear that pneumonia underlies her respiratory failure. She had evidence on exam of fluid overload with body wall edema and bilateral lower extremity pitting edema, as had been the case during her hospitalization in June 2018 with a similar presentation, as well. She does not have a constellation of clinical manifestations suggestive of pneumonia - no subjective fever, complaints of chills, chest pain or cough on presentation, no objective fever throughout hospitalization, no leukocytosis, and only scant or no secretions. Luis Alberto Navarro MD [facility] Infectious Diseases pager [phone]
[2018-12-01] MEDS: PHARMACY COMMUNICATION ORDER MC SCH (17:42)
[2018-12-01] MEDS: DIAZEPAM INJ 10 MG/2 ML DISP.SYRIN IV PRN ×2 (17:55→23:22)
[2018-12-01] MEDS: NORMAL SALINE 1000 ML 1,000 ML with POTASSIUM CHLORIDE 20 MEQ, MAGNESIUM SULFATE 8 MEQ,... IV SCH ×5 (17:55)
[2018-12-01] MEDS: NORMAL SALINE 250 ML with FUROSEMIDE 250 MG IV PRN ×2 (17:55)
[2018-12-02] MEDS: IPRATROPIUM BROMIDE 0.02% NEB 0.5 MG/2.5 ML AMPUL NEB SCH ×3 (00:17→15:37)
[2018-12-02] MEDS: LEVALBUTEROL HCL NEB 1.25 MG/3 ML AMPUL NEB SCH ×3 (00:17→15:35)
[2018-12-02] MEDS: PROPOFOL 1,000 MG/100 ML INFUS..BTL IV PRN ×10 (01:18→23:33)
[2018-12-02 03:49] LABS: ABSOLUTE EOSINOPHILS # (AUTO) 0.1 10^3/uL (0.0-0.6); ABSOLUTE LYMPHOCYTES (AUTO) 1.4 10^3/uL (0.5-4.7); ABSOLUTE MONOCYTES (AUTO) 0.4 10^3/uL (0.1-1.4); BASOPHILS % (AUTO) 0.8 % (0-2); EOSINOPHILS % (AUTO) 2.9 % (0-6); HEMOGLOBIN 11.2 g/dL (12.0-15.5); LYMPHOCYTES % (AUTO) 28.2 % (13-45); MEAN CORPUSCULAR HEMOGLOBIN 24.7 pg (27.0-33.4); MEAN CORPUSCULAR HGB CONC 31.2 g/dL (32.0-36.0); MEAN CORPUSCULAR VOLUME 79 fl (80-97); MONOCYTES % (AUTO) 7.8 % (3-13); PLATELET COUNT 170 10^3/uL (150-450); RED BLOOD COUNT 4.56 10^6/uL (3.72-5.28); RED CELL DISTRIBUTION WIDTH 20.4 % (11.5-14.0); SEGMENTED NEUTROPHILS % (AUTO) 60.3 % (42-78); TOTAL CELLS COUNTED % (AUTO) 100 %; WHITE BLOOD COUNT 4.9 10^3/uL (4.0-10.5)
[2018-12-02 04:07] LABS: ANION GAP 15 (5-19); BLOOD UREA NITROGEN 17 mg/dL (7-20); CALCIUM 9.6 mg/dL (8.4-10.2); CARBON DIOXIDE 30 mmol/L (22-30); CHLORIDE 95 mmol/L (98-107); GLUCOSE 72 mg/dL (75-110); PHOSPHORUS 5.6 mg/dL (2.5-4.5); POTASSIUM 3.3 mmol/L (3.6-5.0)
[2018-12-02] MEDS: DIAZEPAM INJ 10 MG/2 ML DISP.SYRIN IV PRN (04:22)
[2018-12-02] MEDS: HEPARIN SOD (PORCINE) 5,000 UNIT/ML 1 ML VIAL SUBCUT SCH ×3 (05:01→21:07)
[2018-12-02] MEDS: POTASSIUM CHLORIDE 20 MEQ/50 ML RTU IV SCH ×2 (05:01→06:48)
[2018-12-02] MEDS: PIPERACILLIN SODIUM/TAZOBACTAM 3.375 GM in NORMAL SALINE 100 ML IV SCH ×4 (05:01→23:30)
[2018-12-02 05:18] LABS: ARTERIAL BLOOD BASE EXCESS 8.7 mmol/L; ARTERIAL BLOOD H2CO3 1.23 mmol/L (1.05-1.35); ARTERIAL BLOOD HCO3 32.3 mmol/L (20-24); ARTERIAL BLOOD O2 SATURATION 92.8 % (94-98); ARTERIAL BLOOD PCO2 40.8 mmHg (35-45); ARTERIAL BLOOD PH 7.52 (7.35-7.45); ARTERIAL BLOOD PO2 58.8 mmHg (80-100); ARTERIAL BLOOD TOTAL CO2 33.6 mmol/L (21-25)
[2018-12-02] MEDS: BUDESONIDE NEB 0.5 MG/2 ML AMPUL NEB SCH ×2 (08:12→20:49)
[2018-12-02] MEDS: PANTOPRAZOLE SODIUM 40 MG VIAL IV SCH ×2 (09:10→21:07)
[2018-12-02] MEDS: PANTOT AC/MIN OIL/PET HY-PHL OINT 50 GM TOP SCH ×2 (09:10→21:42)
--- NOTE | 2018-12-02 09:33 | PDOC PROGRESS REPORT ---
Subjective Progress Note for:: 12/02/18 - Seen on rounds in the ICU this morning Subjective:: Patient remains on the ventilator this morning. Spoke with nursing staff and ICU team regarding her care. No overnight events reported to me. Her potassium was low this morning and nursing is following potassium protocol. Reason For Visit: ACUTE RESPIRATORY FAILURE WITH HYPOXIA Physical Exam Vital Signs: Temp Pulse Resp BP Pulse Ox 98.4 F 73 16 113/79 92 12/02/18 08:00 12/02/18 08:15 12/02/18 08:15 12/02/18 08:00 12/02/18 08:15 Intake & Output 12/01/18 12/02/18 12/03/18 06:59 06:59 06:59 Intake Total 2328 2535 Output Total 6285 9880 265 Balance -3957 -7345 -265 Weight 296 lb 4.82 oz 278 lb 10.629 oz General appearance: PRESENT: no acute distress Head exam: PRESENT: atraumatic, normocephalic Eye exam: ABSENT: scleral icterus Mouth exam: PRESENT: moist Respiratory exam: PRESENT: decreased breath sounds - Bilaterally at the bases, symmetrical Cardiovascular exam: PRESENT: +S1, +S2 Pulses: PRESENT: +2 pedal pulses bilateral GI/Abdominal exam: PRESENT: firm, hypoactive bowel sounds - Some bowel sounds appreciated on the right side only. ABSENT: tenderness Extremities exam: PRESENT: pedal edema, other - Bilateral lower extremity edema- much improved-abdominal edema much improved Neurological exam: PRESENT: other - Remains on the [id number]-bjmhdor-[id number] to follow commands Skin exam: PRESENT: dry, warm Results Laboratory Results: 12/02/18 03:40 12/02/18 03:40 11/30/18 12/02/18 12/02/18 04:10 03:40 03:40 WBC 4.9 RBC 4.56 Hgb 11.2 L Hct 36.0 MCV 79 L MCH 24.7 L MCHC 31.2 L RDW 20.4 H Plt Count 170 Seg Neutrophils % 60.3 Lymphocytes % 28.2 Monocytes % 7.8 Eosinophils % 2.9 Basophils % 0.8 Absolute Neutrophils 3.0 Absolute Lymphocytes 1.4 Absolute Monocytes 0.4 Absolute Eosinophils 0.1 Absolute Basophils 0.0 Carbonic Acid HCO3/H2CO3 Ratio ABG pH ABG pCO2 ABG pO2 ABG HCO3 ABG O2 Saturation ABG Base Excess FiO2 Sodium 139.7 Potassium 3.3 L Chloride 95 L Carbon Dioxide 30 Anion Gap 15 BUN 17 Creatinine 1.42 H Est GFR ( Amer) 51 L Est GFR (Non-Af Amer) 42 L Glucose 72 L Calcium 9.6 Phosphorus 5.6 H Magnesium 2.1 Total Protein 7.0 Albumin 3.0 12/02/18 04:55 WBC RBC Hgb Hct MCV MCH MCHC RDW Plt Count Seg Neutrophils % Lymphocytes % Monocytes % Eosinophils % Basophils % Absolute Neutrophils Absolute Lymphocytes Absolute Monocytes Absolute Eosinophils Absolute Basophils Carbonic Acid 1.23 HCO3/H2CO3 Ratio 26:1 ABG pH 7.52 H ABG pCO2 40.8 ABG pO2 58.8 L ABG HCO3 32.3 H ABG O2 Saturation 92.8 L ABG Base Excess 8.7 FiO2 55% Sodium Potassium Chloride Carbon Dioxide Anion Gap BUN Creatinine Est GFR ( Amer) Est GFR (Non-Af Amer) Glucose Calcium Phosphorus Magnesium Total Protein Albumin 11/25/18 11/25/18 11/25/18 01:58 07:39 07:39 Creatine Kinase 50 CK-MB (CK-2) 0.53 Troponin I < 0.012 < 0.012 NT-Pro-B Natriuret Pep 766 H 11/25/18 11/25/18 11/25/18 12:03 12:03 18:17 Creatine Kinase 37 29 L CK-MB (CK-2) 0.37 Troponin I < 0.012 NT-Pro-B Natriuret Pep 11/25/18 11/26/18 18:17 03:32 Creatine Kinase CK-MB (CK-2) < 0.22 Troponin I < 0.012 NT-Pro-B Natriuret Pep 490 H Impressions: Abdomen Ultrasound 11/25/18 01:12 IMPRESSION: No free fluid identified within the upper quadrants. Evaluation of the lower quadrants was limited due to patient positioning as per the technologist. Abdomen/Pelvis CT 11/25/18 03:36 IMPRESSION: 1. Endotracheal tube with tip in the right mainstem bronchus. Recommend repositioning. 2. Bilateral dependent airspace opacities may be related to atelectasis. Developing pneumonic process or pneumonitis could produce the same appearance. 3. Enlarged right axillary lymph nodes as well as a 2.7 cm inferior right breast nodule. These may be reactive however other etiology not excluded. Correlation with right breast/axillary ultrasound and possible mammography recommended. 4. Body wall anasarca. 5. Small amount of ascites. 6. Hepatic steatosis. 7. Cardiomegaly. This exam was performed according to our departmental dose-optimization program, which includes automated exposure control, adjustment of the mA and/or kV according to patient size and/or use of iterative reconstruction technique. Chest CT 11/27/18 00:00 IMPRESSION: The endotracheal tube remains in low position. The tip of the tube is 1 cm above the kirill. Small pleural effusions. Airspace disease in both lower lobes and in the right middle lobe. Atelectasis versus pneumonia. Cardiomegaly. No adam pulmonary edema. Head CT 11/27/18 00:00 IMPRESSION: Sinus disease. No acute intracranial imaging findings. EVIDENCE OF ACUTE STROKE: NO. KUB X-Ray 12/01/18 00:00 IMPRESSION: NO RADIOGRAPHIC EVIDENCE FOR ACUTE ABDOMINAL DISEASE. Assessment and Plan - Diagnosis (1) Sepsis Qualifiers: Sepsis type: sepsis due to unspecified organism Sepsis acute organ dysfunction status: unspecified Qualified Code(s): A41.9 - Sepsis, unspecified organism Is this a current diagnosis for this admission?: Yes (2) Acute respiratory failure with hypoxia Is this a current diagnosis for this admission?: Yes (3) Alcoholism Is this a current diagnosis for this admission?: Yes (4) Cocaine use Is this a current diagnosis for this admission?: Yes (5) Pneumonia Is this a current diagnosis for this admission?: Yes (6) Anasarca Is this a current diagnosis for this admission?: Yes (7) Anemia Qualifiers: Anemia type: iron deficiency Iron deficiency anemia type: inadequate dietary iron intake Qualified Code(s): D50.8 - Other iron deficiency anemias Is this a current diagnosis for this admission?: Yes (8) Hyperbilirubinemia Is this a current diagnosis for this admission?: Yes (9) Elevated LFTs Is this a current diagnosis for this admission?: Yes (10) Breast mass in female Is this a current diagnosis for this admission?: Yes - Time Total Critical Time (Minutes): 35 Anticipated discharge: Acute Rehab - Inpatient Certification Based on my medical assessment, after consideration of the patient's comorbidities, presenting symptoms, or acuity I expect that the services needed warrant INPATIENT care.: Yes I certify that my determination is in accordance with my understanding of Medicare's requirements for reasonable and necessary INPATIENT services [42 CFR 412.3e].: Yes Medical Necessity: Failure to Improve With Outpatient Therapy, Significant Comorbidiites Make Outpatient Treatment Too Risky, Need For Continuous Telemetry Monitoring, Risk of Complication if Not Cared For in Hospital - Plan Summary Plan Summary: 38-year-old female with a past medical history of morbid obesity, congestive heart failure, chronic alcohol use, tobacco dependence and illicit drug use, who was admitted to the ICU for respiratory failure and currently is ventilator dependent. Sepsis-most likely secondary to pneumonia, repeat chest x-ray today showing possible left lower lobe consolidation and pleural effusion. Most likely this is secondary to her volume overload and anasarca. Please see plan for anasarca. Given the fact that she remains afebrile and cultures have been negative so far and with no clear indication of pneumonia I think we can stop antibiotics today, Zosyn day #7. Acute respiratory failure with hypoxia-currently ventilator dependent, continue with ventilatory dependent protocols and avoid ventilator associated pneumonia- continue with daily sedation vacations and weaning trials. I think a respiratory failure might have been secondary to alcohol abuse and volume over load with anasarca. Will be taken daily ABGs and this morning she is once again and metabolic alkalosis-we will talk to respiratory therapist about vent management. She continues to be on propofol at 40 mics and per nursing she becomes very agitated when it has been decreased. Given her morbid obesity and volume overload she is a difficult patient to be weaned off the ventilator. I will revisit this with Dr. Ayers, cigarette machines mechanic, about an alternative approach to weaning her off the vent. Her vent settings are tidal volume of 500 PEEP of 6 rate of 16 and a FiO2 of 55%. pH this morning was 7.52 with a PCO2 of 40, bicarb of 32 and oxygen saturation of 92%. Cocaine positive-noted SHERRI-she remains on the Lasix drip at 10 mg an hour-although her creatinine is remaining well and she is having good urine output I think we need to back off on the Lasix slowly as she may develop some contraction alkalosis from overdiuresis. Nephrology is consulted and I appreciate their assistance-I will speak with Dr. Johnson regarding this matter before I make any changes. Continue to monitor strict I's and O's and daily weights. Replete potassium per nursing protocol. Anasarca-see plan above-her bowel sounds are decreased all the way here some on the right side today. We did get a KUB yesterday which does not show any obstructions. I am wondering if it would help to put her on a low continuous wall suction if we even suspect a partial obstruction versus ileus. Yesterday her tube feeds were held due to concern for high residuals. Elevated bilirubin and LFTs-upon initial arrival she did have CT abdomen pelvis with IV contrast, it did show hepatic steatosis, body wall anasarca, and small ascites. This is most likely secondary to to her history of alcohol abuse. It also showed a right breast mass measuring 2.7 x 2.1 cm which needs to be followed up after discharge. Breast mass on the right breast-this needs to be followed up carefully monitored. I do not know if this is acute or chronic. Most likely she will need a mammogram when she improves from her acute state. Alcohol abuse-noted DVT/GI prophylaxis-heparin subcu and Protonix IV Disposition-remain in the ICU for now until we can wean her off the ventilator and she is more stable.
--- NOTE | 2018-12-02 14:16 | RADIOLOGY REPORT (SQ) ---
EXAM DESCRIPTION: CHEST SINGLE VIEW COMPLETED DATE/TIME: 12/02/2018 6:29 am REASON FOR STUDY: pna COMPARISON: 12/01/2018 NUMBER OF VIEWS: One view. TECHNIQUE: Single frontal radiographic image of the chest acquired. LIMITATIONS: None. FINDINGS: ENDOTRACHEAL TUBE: Tip overlies the lower 3rd of the trachea, stable. OTHER SUPPORT DEVICES: NG tube tip is beyond the GE junction. CHANGES IN RADIOGRAPHIC FINDINGS: None. Similar bibasilar airspace opacity-effusion, left greater th an right. HARDWARE: None in the chest. OTHER: No other significant finding. IMPRESSION: STABLE APPEARANCE OF THE CHEST. TECHNICAL DOCUMENTATION: JOB ID: [id number] [place]-72 2010 [employer]- All Rights Reserved Reading location - IP/workstation name: [email or web address]
[2018-12-02] MEDS ORDERED: BISACODYL 10 MG SUPP.RECT PR PRN (14:38)
[2018-12-02] MEDS: NORMAL SALINE 250 ML with FUROSEMIDE 250 MG IV PRN ×2 (18:05)
[2018-12-02] MEDS: NORMAL SALINE 1000 ML 1,000 ML with POTASSIUM CHLORIDE 20 MEQ, MAGNESIUM SULFATE 8 MEQ,... IV SCH ×5 (18:05)
[2018-12-02] MEDS: PHARMACY COMMUNICATION ORDER MC SCH (18:05)
[2018-12-02] MEDS: AMINO AC/PROTEIN HYDR/WHEY PRO 11 GM/45 ML PKT NG SCH (18:06)
[2018-12-02] MEDS ORDERED: CHLORPROMAZINE HCL INJ 25 MG/1 ML AMPULE ONE (20:39)
[2018-12-02] MEDS: CHLORPROMAZINE HCL INJ 25 MG/1 ML AMPULE IV PRN (20:48)
[2018-12-03] MEDS: IPRATROPIUM BROMIDE 0.02% NEB 0.5 MG/2.5 ML AMPUL NEB SCH ×3 (00:22→16:32)
[2018-12-03] MEDS: LEVALBUTEROL HCL NEB 1.25 MG/3 ML AMPUL NEB SCH ×3 (00:23→16:32)
[2018-12-03] MEDS: PROPOFOL 1,000 MG/100 ML INFUS..BTL IV PRN ×9 (02:42→21:40)
[2018-12-03 03:57] LABS: ABSOLUTE BASOPHILS # (AUTO) 0.1 10^3/uL (0.0-0.2); ABSOLUTE LYMPHOCYTES (AUTO) 1.5 10^3/uL (0.5-4.7); ABSOLUTE MONOCYTES (AUTO) 0.5 10^3/uL (0.1-1.4); ABSOLUTE NEUT (AUTO) 3.1 10^3/uL (1.7-8.2); BASOPHILS % (AUTO) 1.5 % (0-2); EOSINOPHILS % (AUTO) 0.6 % (0-6); HEMATOCRIT 36.4 % (36.0-47.0); HEMOGLOBIN 11.7 g/dL (12.0-15.5); LYMPHOCYTES % (AUTO) 28.2 % (13-45); MEAN CORPUSCULAR HEMOGLOBIN 25.1 pg (27.0-33.4); MEAN CORPUSCULAR VOLUME 79 fl (80-97); PLATELET COUNT 203 10^3/uL (150-450); RED BLOOD COUNT 4.64 10^6/uL (3.72-5.28); RED CELL DISTRIBUTION WIDTH 20.6 % (11.5-14.0); SEGMENTED NEUTROPHILS % (AUTO) 59.7 % (42-78); TOTAL CELLS COUNTED % (AUTO) 100 %; WHITE BLOOD COUNT 5.2 10^3/uL (4.0-10.5)
[2018-12-03 04:14] LABS: ANION GAP 16 (5-19); BLOOD UREA NITROGEN 19 mg/dL (7-20); CALCIUM 9.5 mg/dL (8.4-10.2); CARBON DIOXIDE 29 mmol/L (22-30); CHLORIDE 94 mmol/L (98-107); POTASSIUM 3.5 mmol/L (3.6-5.0)
[2018-12-03 04:22] LABS: GLUCOSE 69 mg/dL (75-110)
[2018-12-03 04:28] LABS: ARTERIAL BLOOD BASE EXCESS 7.4 mmol/L; ARTERIAL BLOOD H2CO3 1.14 mmol/L (1.05-1.35); ARTERIAL BLOOD HCO3 30.6 mmol/L (20-24); ARTERIAL BLOOD O2 SATURATION 94.1 % (94-98); ARTERIAL BLOOD PCO2 37.8 mmHg (35-45); ARTERIAL BLOOD PH 7.53 (7.35-7.45); ARTERIAL BLOOD PO2 62.3 mmHg (80-100); ARTERIAL BLOOD TOTAL CO2 31.8 mmol/L (21-25)
[2018-12-03] MEDS: PIPERACILLIN SODIUM/TAZOBACTAM 3.375 GM in NORMAL SALINE 100 ML IV SCH (05:01)
[2018-12-03] MEDS: HEPARIN SOD (PORCINE) 5,000 UNIT/ML 1 ML VIAL SUBCUT SCH ×3 (05:02→21:22)
[2018-12-03] MEDS: BUDESONIDE NEB 0.5 MG/2 ML AMPUL NEB SCH ×2 (07:56→20:18)
--- NOTE | 2018-12-03 08:37 | RADIOLOGY REPORT (SQ) ---
EXAM DESCRIPTION: CHEST SINGLE VIEW COMPLETED DATE/TIME: 12/03/2018 6:29 am REASON FOR STUDY: pmna/resp failure COMPARISON: 12/02/2018 EXAM PARAMETERS: NUMBER OF VIEWS: One view TECHNIQUE: Single frontal radiograph of the chest. RADIATION DOSE: N/A LIMITATIONS: None. FINDINGS: TEMPORARY SUPPORT DEVICES:ETT in expected location. NG tube courses below the sherry-diaphr agm in to the stomach. LUNGS AND PLEURA: Dense bibasilar opacities left greater than right. Air bronchograms. Possible eff usions. No masses. No pneumothorax. MEDIASTINUM AND HILAR STRUCTURES: No masses. Contour normal. HEART AND VASCULAR STRUCTURES: Heart enlarged. Vascular congestion. Aorta normal for age. BONES: No acute findings. OTHER: No other significant finding. IMPRESSION: Dense bilateral lobe pneumonia left greater than right with probable effusions. No impr ovement. Vascular congestion. SUPPORT DEVICE(S) IN EXPECTED LOCATIONS. TECHNICAL DOCUMENTATION: JOB ID: [id number] [employer]- All Rights Reserved Reading location - IP/workstation name: [email or web address]
[2018-12-03] MEDS: PANTOPRAZOLE SODIUM 40 MG VIAL IV SCH ×2 (09:38→21:21)
[2018-12-03] MEDS: AMINO AC/PROTEIN HYDR/WHEY PRO 11 GM/45 ML PKT NG SCH ×2 (09:39→19:26)
[2018-12-03] MEDS: PANTOT AC/MIN OIL/PET HY-PHL OINT 50 GM TOP SCH ×2 (09:39→21:22)
--- NOTE | 2018-12-03 12:58 | RADIOLOGY REPORT (SQ) ---
EXAM DESCRIPTION: KUB/ABDOMEN (SINGLE VIEW) COMPLETED DATE/TIME: 12/03/2018 12:43 pm REASON FOR STUDY: Evaluate for Obstruction COMPARISON: 12/01/2018 NUMBER OF VIEWS: 2 TECHNIQUE: Supine and upright radiographic image of the abdomen acquired. LIMITATIONS: None. FINDINGS: BOWEL GAS PATTERN: Normal bowel gas pattern. No dilated loops. CALCIFICATIONS: No suspicious calcifications. SOFT TISSUES: No gross mass or suggestion of organomegaly. HARDWARE: NG tube tip overlies the pyloric region of the stomach. BONES: No acute fracture. No worrisome bone lesions. OTHER: No other significant finding. IMPRESSION: NO RADIOGRAPHIC EVIDENCE FOR ACUTE ABDOMINAL DISEASE.NG tube tip overlies the pyloric re gion of the stomach. TECHNICAL DOCUMENTATION: JOB ID: [id number] [place]-72 2010 [employer]- All Rights Reserved Reading location - IP/workstation name: [email or web address]
[2018-12-03] MEDS: CHLORPROMAZINE HCL INJ 25 MG/1 ML AMPULE IV PRN (14:31)
--- NOTE | 2018-12-03 16:17 | PDOC CONSULTATION ---
Consultation Consult Date: 12/03/18 Provider Consulted: JEN MENSAH Consult reason:: no bowel function since admission History of Present Illness Admission Date/PCP: 11/25/18 06:45 History of Present Illness: ZANDER GIBBS is a 38 year old female admitted on 11/25/18 for malaise, anasarca, hx of heavy drinking, underwent emergent endotracheal intubation due to respiratory failure secondary to bilateral lower lobe pneumonia. During the hospitalization, she has undergone massive diuresis (about 20 KG) without any improvement of her general conditions. She underwent a CT A/P on admission, followed by several KUB Xrays on , 12/01/18, and today 12/03/18 without evidence of any intraadominal pathology. She has not had any recorded bowel function since admission until today, when a small liquid stool was noted. Past Medical History Cardiac Medical History: Reports: Congestive Heart Failure - Anasarca Pulmonary Medical History: Reports: Bronchitis EENT Medical History: Denies: Cataracts, Ears Neurological Medical History: Denies: Multiple Sclerosis, Seizures Endocrine Medical History: Denies: Diabetes Mellitus Type 1, Diabetes Mellitus Type 2 Renal/ Medical History: Denies: Chronic Kidney Disease, Nephrolithiasis Malignancy Medical History: Reports: None GI Medical History: Denies: Cirrhosis, Hepatitis Musculoskeltal Medical History: Denies: Arthritis, Gout Skin Medical History: Denies: Eczema, Psoriasis Psychiatric Medical History: Reports: Alcohol Dependency, Bipolar Disorder, Depression, Substance Abuse, Tobacco Dependency Traumatic Medical History: Reports: None Hematology: Reports: Anemia Denies: Bleeding Tendencies Infectious Medical History: Reports: None Past Surgical History Past Surgical History: Reports: Section Social History Lives with: Alone Smoking Status: Current Every Day Smoker Cigarettes Packs Per Day: 1 Frequency of Alcohol Use: Heavy - 24 beers per day with history of seizure Hx Recreational Drug Use: Yes - No current recreational drug use Drugs: Cocaine Hx Prescription Drug Abuse: Yes - Advance Directive Resuscitation Status: Full Code Family History Family History: CAD Parental Family History Reviewed: No Children Family History Reviewed: No Sibling(s) Family History Reviewed.: No Medication/Allergy Home Medications: Famotidine [Pepcid 20 mg Tablet] 20 mg PO DAILY 11/25/18 Folic Acid [Folvite 1 mg Tablet] 1 mg PO DAILY 11/25/18 Furosemide [Lasix 40 mg Tablet] 40 mg PO DAILY 11/25/18 Lactulose [Constulose 10 gm/15 mL Oral Solution] 30 ml PO BID 11/25/18 Multivitamin [Tab-A-Audie (Multiple Vitamin) Tablet] 1 tab PO DAILY 11/25/18 Nicotine [Nicoderm 14 mg/24 Hr Transdermal Patch] 1 patch TOP DAILY 11/25/18 Spironolactone [Aldactone 100 mg Tablet] 100 mg PO DAILY 11/25/18 Allergies/Adverse Reactions: No Known Allergies Allergy (Verified 07/03/18 07:32) Physical Exam Vital Signs: Temp Pulse Resp BP Pulse Ox 98.8 F 89 16 114/80 94 12/03/18 14:00 12/03/18 14:00 12/03/18 14:00 12/03/18 14:00 12/03/18 14:00 Intake & Output 12/02/18 12/03/18 12/04/18 06:59 06:59 06:59 Intake Total 2535 5237 500 Output Total 9880 7770 1370 [id number] [id number] Weight 126.4 kg 120.2 kg General appearance: PRESENT: other - sedated, intubated, not responsive Head exam: PRESENT: atraumatic Eye exam: PRESENT: other - no examined Mouth exam: PRESENT: moist, neck supple Respiratory exam: PRESENT: clear to auscultation linda Cardiovascular exam: PRESENT: RRR GI/Abdominal exam: PRESENT: normal bowel sounds, other - adomen taut, not distended Extremities exam: PRESENT: +2 edema - both LE Results Laboratory Results: 12/03/18 03:33 12/03/18 03:33 12/03/18 12/03/18 12/03/18 03:33 03:33 04:16 WBC 5.2 RBC 4.64 Hgb 11.7 L Hct 36.4 MCV 79 L MCH 25.1 L MCHC 32.0 RDW 20.6 H Plt Count 203 Seg Neutrophils % 59.7 Lymphocytes % 28.2 Monocytes % 10.0 Eosinophils % 0.6 Basophils % 1.5 Absolute Neutrophils 3.1 Absolute Lymphocytes 1.5 Absolute Monocytes 0.5 Absolute Eosinophils 0.0 Absolute Basophils 0.1 Carbonic Acid 1.14 HCO3/H2CO3 Ratio 26:1 ABG pH 7.53 H ABG pCO2 37.8 ABG pO2 62.3 L ABG HCO3 30.6 H ABG O2 Saturation 94.1 ABG Base Excess 7.4 FiO2 55% Sodium 138.9 Potassium 3.5 L Chloride 94 L Carbon Dioxide 29 Anion Gap 16 BUN 19 Creatinine 1.37 H Est GFR ( Amer) 53 L Est GFR (Non-Af Amer) 44 L Glucose 69 L Calcium 9.5 Magnesium 2.2 11/25/18 11/25/18 11/25/18 01:58 07:39 07:39 Creatine Kinase 50 CK-MB (CK-2) 0.53 Troponin I < 0.012 < 0.012 NT-Pro-B Natriuret Pep 766 H 11/25/18 11/25/18 11/25/18 12:03 12:03 18:17 Creatine Kinase 37 29 L CK-MB (CK-2) 0.37 Troponin I < 0.012 NT-Pro-B Natriuret Pep 11/25/18 11/26/18 18:17 03:32 Creatine Kinase CK-MB (CK-2) < 0.22 Troponin I < 0.012 NT-Pro-B Natriuret Pep 490 H Impressions: Abdomen Ultrasound 11/25/18 01:12 IMPRESSION: No free fluid identified within the upper quadrants. Evaluation of the lower quadrants was limited due to patient positioning as per the technologist. Abdomen/Pelvis CT 11/25/18 03:36 IMPRESSION: 1. Endotracheal tube with tip in the right mainstem bronchus. Recommend repositioning. 2. Bilateral dependent airspace opacities may be related to atelectasis. Developing pneumonic process or pneumonitis could produce the same appearance. 3. Enlarged right axillary lymph nodes as well as a 2.7 cm inferior right breast nodule. These may be reactive however other etiology not excluded. Correlation with right breast/axillary ultrasound and possible mammography recommended. 4. Body wall anasarca. 5. Small amount of ascites. 6. Hepatic steatosis. 7. Cardiomegaly. This exam was performed according to our departmental dose-optimization program, which includes automated exposure control, adjustment of the mA and/or kV according to patient size and/or use of iterative reconstruction technique. Chest CT 11/27/18 00:00 IMPRESSION: The endotracheal tube remains in low position. The tip of the tube is 1 cm above the kirill. Small pleural effusions. Airspace disease in both lower lobes and in the right middle lobe. Atelectasis versus pneumonia. Cardiomegaly. No adam pulmonary edema. Head CT 11/27/18 00:00 IMPRESSION: Sinus disease. No acute intracranial imaging findings. EVIDENCE OF ACUTE STROKE: NO. Chest X-Ray 12/03/18 06:00 IMPRESSION: Dense bilateral lobe pneumonia left greater than right with probable effusions. No improvement. Vascular congestion. SUPPORT DEVICE(S) IN EXPECTED LOCATIONS. KUB X-Ray 12/03/18 12:02 IMPRESSION: NO RADIOGRAPHIC EVIDENCE FOR ACUTE ABDOMINAL DISEASE.NG tube tip overlies the pyloric region of the stomach. Assessment & Plan - Diagnosis (1) Respiratory failure Qualifiers: Chronicity: acute Respiratory failure complication: hypoxia Qualified Code(s): J96.01 - Acute respiratory failure with hypoxia Is this a current diagnosis for this admission?: Yes (2) Ileus Is this a current diagnosis for this admission?: Yes (3) Edema due to hypoalbuminemia Is this a current diagnosis for this admission?: Yes (4) Pneumonia Qualifiers: Pneumonia type: due to unspecified organism Laterality: bilateral Is this a current diagnosis for this admission?: Yes - Plan Summary Plan Summary: A/ 38 y/o female with hx of heavy drinking, bilateral pneumonia, respiratory failure No bowel function reported since admission (11/25/18) until today, whena a small liquid bowel movement was noted Physical exam of the abdomen is benign despite the taut abdominal wall; no distention and presence of normal bowel sounds are noted on physical exam A CT scan A/P done on admission and multiple KUB done during this hospitalization are nondiagnstic, as aspecific bowel gas pattern and no dilatation of loops if bowel are noted by multiple Radiologist The patient suffers from a reflex ileus which will resolve once her general conditions improve; the small bowel movement today with the presence of positive bowel sounds indicates the partial return of bowel function. P/ There is no true therapy or drugs which will speed up the return of bowel function. I am not in favor of enemas as they can cause a denuded colon mucosa later colonized by aggressive, pathogens either GN or GP bacilli Trickle OG feeding at low rate (up to 20 mL/hr) will promote bowel function, protect the colon mucosa, and enterally nourish the patient. I will review the CT scan A/P done today and communicate any changes of her bowel conditions to the Primary Service. Thanks for the consult.
--- NOTE | 2018-12-03 16:39 | RADIOLOGY REPORT (SQ) ---
EXAM DESCRIPTION: CT CHEST WITHOUT; CT ABD/PELVIS ORAL ONLY COMPLETED DATE/TIME: 12/03/2018 4:14 pm REASON FOR STUDY: pneumonia; absent bowel sounds, obstruction/ileus? CONTRAST TYPE AND DOSE: Oral contrast only RENAL FUNCTION: None required. The patient is less than 50 years old. COMPARISON: 11/27/2018 TECHNIQUE: CT scan of the chest performed using helical scanning technique with dynamic intravenous contrast injection. Images reviewed with lung, soft tissue and bone windows. Reconstructed coronal a nd sagittal MPR images reviewed. All images stored on PACS. All CT scanners at this facility use dose modulation, iterative reconstruction, and/or weight based d osing when appropriate to reduce radiation dose to as low as reasonably achievable (ALARA). [facility]: Dose Right [facility]: CareDose [facility]: Dose Right [facility]: Teradose 4D [facility]: Smart Cista System RADIATION DOSE: . LIMITATIONS: None. FINDINGS: AXILLAE: No bulky adenopathy. CHEST WALL: No masses. No subcutaneous air. LUNGS: Bilateral lower lobe consolidation -atelectasis. No pneumothorax pleural effusion. Endotrach eal tube is present with tip 1.3 cm above the level of the kirill. PLEURA: No effusions. No calcifications. THYROID: No masses or significant asymmetry. HILAR AND MEDIASTINAL STRUCTURES: No bulky nodes. AORTA AND GREAT VESSELS: No aneurysm. No dissection. PULMONARY ARTERIES: No identified pulmonary emboli. Study not optimized for the pulmonary arteries. HEART: No pericardial effusion. HARDWARE AND LIFELINES: None. BONES: No significant finding. OTHER: No other significant finding. IMPRESSION: Bilateral lower lobe consolidation -atelectasis. No pneumothorax pleural effusion. End otracheal tube is present with tip 1.3 cm above the level of the kirill. COMPARISON: None. RADIATION DOSE: CT Rad equipment meets quality standard of care and radiation dose reduction techniq ues were employed. CTDIvol: 20.6 mGy. DLP: 1405 mGy-cm.mGy. TECHNIQUE: CT scan of the abdomen and pelvis performed with oral contrast using helical scanning yvrose hnique with dynamic intravenous contrast injection. Images reviewed with lung, soft tissue and bone windows. Reconstructed coronal and sagittal MPR images reviewed. Delayed images were not acquired. All images stored on PACS. All CT scanners at this facility use dose modulation, iterative reconstruction, and/or weight based d osing when appropriate to reduce radiation dose to as low as reasonably achievable (ALARA). [facility]: Dose Right [facility]: SureCare [facility]: Dose Right [facility]: Teradose 4D [facility]: Events Core FINDINGS: LIVER: Normal size. No masses. No dilated ducts. SPLEEN: Normal size. No focal lesions. PANCREAS: No masses. No significant calcifications. No adjacent inflammation or peripancreatic flui d collections. Pancreatic duct not dilated. GALLBLADDER: No identified stones by CT criteria. No inflammatory changes to suggest cholecystitis. ADRENAL GLANDS: No significant masses or asymmetry. RIGHT KIDNEY AND URETER: No solid masses. No significant calcification. No hydronephrosis or hydroure ter. LEFT KIDNEY AND URETER: No solid masses. No significant calcification. No hydronephrosis or hydrouret er. AORTA AND VESSELS: No aneurysm. No dissection. Renal arteries, SMA, celiac without stenosis. RETROPERITONEUM: Scattered small retroperitoneal nodes. LARGE AND SMALL BOWEL: No dilatation. No masses. No wall thickening. APPENDIX: Normal. ABDOMINAL WALL: Anterior body wall edema. PERITONEAL CAVITY: No free air. No free fluid. No peritoneal implants or masses. PELVIS: Small amount of free fluid. Blank catheter decompresses the bladder. BONES: No acute findings. OTHER: No other significant finding. IMPRESSION: Small amount of pelvic free fluid. No bowel dilatation. TECHNICAL DOCUMENTATION: JOB ID: [id number] [id number] Quality ID # [id number]: Final reports with documentation of one or more dose reduction techniques (e.g., Au tomated exposure control, adjustment of the mA and/or kV according to patient size, use of iterative reconstruction technique) 2010 [employer]- All Rights Reserved Reading location - IP/workstation name: [email or web address]
--- NOTE | 2018-12-03 16:54 | PDOC PROGRESS REPORT ---
Subjective Progress Note for:: 12/03/18 - Seen on rounds in ICU this morning. Subjective:: Patient remains on the ventilator and sedated. No overnight events reported to me by nursing. Her nurse is at bedside with me. Reason For Visit: ACUTE RESPIRATORY FAILURE WITH HYPOXIA Physical Exam Vital Signs: Temp Pulse Resp BP Pulse Ox 97.7 F 68 16 119/80 93 12/03/18 11:00 12/03/18 10:00 12/03/18 11:00 12/03/18 10:56 12/03/18 11:00 Intake & Output 12/02/18 12/03/18 12/04/18 06:59 06:59 06:59 Intake Total 2535 0247 300 Output Total 9880 7770 600 [facility] -[phone] -[phone] -300 Weight 278 lb 10.629 oz 264 lb 15.93 oz General appearance: PRESENT: no acute distress, morbidly obese Head exam: PRESENT: atraumatic, normocephalic Eye exam: ABSENT: scleral icterus Ear exam: PRESENT: normal external ear exam Mouth exam: PRESENT: dry mucosa Neck exam: ABSENT: tracheal deviation Respiratory exam: PRESENT: decreased breath sounds - Bilaterally in all lung [place]-? Due to body habitus, symmetrical Cardiovascular exam: PRESENT: +S1, +S2 Pulses: PRESENT: +2 pedal pulses bilateral GI/Abdominal exam: PRESENT: firm - Softer than yesterday, hypoactive bowel sounds - I did appreciate some bowel sounds on the left side today although it is decreased Extremities exam: PRESENT: pedal edema - 1+, other - Overall anasarca is much improved Neurological exam: PRESENT: other - Sedated and remains on the vent Skin exam: PRESENT: dry, warm Results Laboratory Results: 12/03/18 03:33 12/03/18 03:33 12/02/18 12/03/18 12/03/18 15:01 03:33 03:33 WBC 5.2 RBC 4.64 Hgb 11.7 L Hct 36.4 MCV 79 L MCH 25.1 L MCHC 32.0 RDW 20.6 H Plt Count 203 Seg Neutrophils % 59.7 Lymphocytes % 28.2 Monocytes % 10.0 Eosinophils % 0.6 Basophils % 1.5 Absolute Neutrophils 3.1 Absolute Lymphocytes 1.5 Absolute Monocytes 0.5 Absolute Eosinophils 0.0 Absolute Basophils 0.1 Carbonic Acid HCO3/H2CO3 Ratio ABG pH ABG pCO2 ABG pO2 ABG HCO3 ABG O2 Saturation ABG Base Excess FiO2 Sodium 138.9 Potassium 3.8 3.5 L Chloride 94 L Carbon Dioxide 29 Anion Gap 16 BUN 19 Creatinine 1.37 H Est GFR ( Amer) 53 L Est GFR (Non-Af Amer) 44 L Glucose 69 L Calcium 9.5 Magnesium 2.2 12/03/18 04:16 WBC RBC Hgb Hct MCV MCH MCHC RDW Plt Count Seg Neutrophils % Lymphocytes % Monocytes % Eosinophils % Basophils % Absolute Neutrophils Absolute Lymphocytes Absolute Monocytes Absolute Eosinophils Absolute Basophils Carbonic Acid 1.14 HCO3/H2CO3 Ratio 26:1 ABG pH 7.53 H ABG pCO2 37.8 ABG pO2 62.3 L ABG HCO3 30.6 H ABG O2 Saturation 94.1 ABG Base Excess 7.4 FiO2 55% Sodium Potassium Chloride Carbon Dioxide Anion Gap BUN Creatinine Est GFR ( Amer) Est GFR (Non-Af Amer) Glucose Calcium Magnesium 11/25/18 11/25/18 11/25/18 01:58 07:39 07:39 Creatine Kinase 50 CK-MB (CK-2) 0.53 Troponin I < 0.012 < 0.012 NT-Pro-B Natriuret Pep 766 H 11/25/18 11/25/18 11/25/18 12:03 12:03 18:17 Creatine Kinase 37 29 L CK-MB (CK-2) 0.37 Troponin I < 0.012 NT-Pro-B Natriuret Pep 11/25/18 11/26/18 18:17 03:32 Creatine Kinase CK-MB (CK-2) < 0.22 Troponin I < 0.012 NT-Pro-B Natriuret Pep 490 H Impressions: Abdomen Ultrasound 11/25/18 01:12 IMPRESSION: No free fluid identified within the upper quadrants. Evaluation of the lower quadrants was limited due to patient positioning as per the technologist. Abdomen/Pelvis CT 11/25/18 03:36 IMPRESSION: 1. Endotracheal tube with tip in the right mainstem bronchus. Recommend repositioning. 2. Bilateral dependent airspace opacities may be related to atelectasis. Developing pneumonic process or pneumonitis could produce the same appearance. 3. Enlarged right axillary lymph nodes as well as a 2.7 cm inferior right breast nodule. These may be reactive however other etiology not excluded. Correlation with right breast/axillary ultrasound and possible mammography recommended. 4. Body wall anasarca. 5. Small amount of ascites. 6. Hepatic steatosis. 7. Cardiomegaly. This exam was performed according to our departmental dose-optimization program, which includes automated exposure control, adjustment of the mA and/or kV according to patient size and/or use of iterative reconstruction technique. Chest CT 11/27/18 00:00 IMPRESSION: The endotracheal tube remains in low position. The tip of the tube is 1 cm above the kirill. Small pleural effusions. Airspace disease in both lower lobes and in the right middle lobe. Atelectasis versus pneumonia. Cardiomegaly. No adam pulmonary edema. Head CT 11/27/18 00:00 IMPRESSION: Sinus disease. No acute intracranial imaging findings. EVIDENCE OF ACUTE STROKE: NO. KUB X-Ray 12/01/18 00:00 IMPRESSION: NO RADIOGRAPHIC EVIDENCE FOR ACUTE ABDOMINAL DISEASE. Chest X-Ray 12/03/18 06:00 IMPRESSION: Dense bilateral lobe pneumonia left greater than right with probable effusions. No improvement. Vascular congestion. SUPPORT DEVICE(S) IN EXPECTED LOCATIONS. Assessment and Plan - Diagnosis (1) Sepsis Qualifiers: Sepsis type: sepsis due to unspecified organism Sepsis acute organ dysfunction status: unspecified Qualified Code(s): A41.9 - Sepsis, unspecified organism Is this a current diagnosis for this admission?: Yes (2) Acute respiratory failure with hypoxia Is this a current diagnosis for this admission?: Yes (3) Alcoholism Is this a current diagnosis for this admission?: Yes (4) Cocaine use Is this a current diagnosis for this admission?: Yes (5) Pneumonia Qualifiers: Pneumonia type: due to unspecified organism Laterality: bilateral Is this a current diagnosis for this admission?: Yes (6) Anasarca Is this a current diagnosis for this admission?: Yes (7) Anemia Qualifiers: Anemia type: iron deficiency Iron deficiency anemia type: inadequate dietary iron intake Qualified Code(s): D50.8 - Other iron deficiency anemias Is this a current diagnosis for this admission?: Yes (8) Hyperbilirubinemia Is this a current diagnosis for this admission?: Yes (9) Elevated LFTs Is this a current diagnosis for this admission?: Yes (10) Breast mass in female Is this a current diagnosis for this admission?: Yes - Time Total Critical Time (Minutes): 35 Anticipated discharge: Acute Rehab - Inpatient Certification Based on my medical assessment, after consideration of the patient's comorbidities, presenting symptoms, or acuity I expect that the services needed warrant INPATIENT care.: Yes I certify that my determination is in accordance with my understanding of Medicare's requirements for reasonable and necessary INPATIENT services [42 CFR 412.3e].: Yes Medical Necessity: Failure to Improve With Outpatient Therapy, Significant Comorbidiites Make Outpatient Treatment Too Risky, Need For IV Fluids, Need For Continuous Telemetry Monitoring, Need for IV Antibiotics, Risk of Complication if Not Cared For in Hospital - Plan Summary Plan Summary: 38-year-old female with a past medical history of morbid obesity, congestive heart failure, chronic alcohol use, tobacco dependence and illicit drug use, who was admitted to the ICU for respiratory failure and currently ventilator dependent. Sepsis-most likely secondary to pneumonia, repeat chest x-ray today showing possible left lower lobe consolidation and pleural effusion. Most likely this is secondary to her volume overload and anasarca. Please see plan for anasarca. Given the fact that she remains afebrile and cultures have been negative so far and with no clear indication of pneumonia I think we can stop antibiotics today, Zosyn day #7. Acute respiratory failure with hypoxia-currently ventilator dependent, continue with ventilatory dependent protocols and avoid ventilator associated pneumonia- continue with daily sedation vacations and weaning trials. Unfortunately she has not been doing well on sedation vacation and not tolerating the decreased sedation as she becomes very tachypneic, tachycardic and agitated. Her respiratory failure may be secondary to her alcohol abuse and volume overload with anasarca. Continue with daily ABGs.This morning her ABG unfortunately showing some metabolic acidosis with a pH of 7.53, PCO2 of 37, PO2 of 62, bicarb of 30 and a O2 saturation of 94% at 55% FiO2. Dr. Ayers is consulted for vent management and I appreciate his assistance. I spoken with respiratory therapist this afternoon about possibly adjusting vent settings which includes possible increasing the PEEP pressure. Today she also had a CT of the chest without IV contrast which showed some bilateral lower lobe consolidation and no other acute findings. I spoke with Dr. Ayers regarding this and he may consider doing a bronc in the next 24 to 48 hours after he evaluates the patient again. Cocaine positive-noted SHERRI-she is starting to get some contraction alkalosis and hence I have turned down her Lasix drip to 5 mg an hour-she is having tremendous amount of urine output and her creatinine is holding stable. Dr. Johnson from nephrology is consulted [facility] over the weekend they are not rounding and I am hoping that she will be seen tomorrow, Tuesday. Continue to replete potassium per nursing protocol. Anasarca-see plan above-her bowel sounds have been decreased but today I did hear some on the left side. Due to concern for ileus versus partial obstruction I have gone ahead and consulted surgery-I appreciate help from Dr. Paul and I spoke to myself. He believes that this is most likely an ileus and we should continue with trickle feeds and not worry about continuous suction's. No intervention at this time. She did have a CT abdomen pelvis with oral contrast only which did not show any acute findings. Elevated bilirubin and LFTs-upon initial arrival she did have CT abdomen pelvis with IV contrast, it did show hepatic steatosis, body wall anasarca, and small ascites. This is most likely secondary to to her history of alcohol abuse. It also showed a right breast mass measuring 2.7 x 2.1 cm which needs to be followed up after discharge. Breast mass on the right breast-this needs to be followed up carefully monitored. I do not know if this is acute or chronic. Most likely she will need a mammogram when she improves from her acute state. Alcohol abuse-noted DVT/GI prophylaxis-heparin subcu and Protonix IV Disposition-remain in the ICU for now until we can wean her off the ventilator and she is more stable-she may be a difficult wean-if we cannot wean her off the vent then she may need to be transferred to a high level of care for possible trach and PEG.
[2018-12-03] MEDS: NORMAL SALINE 1000 ML 1,000 ML with POTASSIUM CHLORIDE 20 MEQ, MAGNESIUM SULFATE 8 MEQ,... IV SCH ×5 (18:58)
[2018-12-03] MEDS: NORMAL SALINE 250 ML with FUROSEMIDE 250 MG IV PRN ×2 (19:25)
[2018-12-03] MEDS: PHARMACY COMMUNICATION ORDER MC SCH (19:25)
--- NOTE | 2018-12-03 22:38 | Progress Note ---
Provider Note Provider Note: CT scan A/P done today 12/03/18 shows no evidence of bowel pathology or dilatation. A/ Sympathetic ileus secondary to multiple patient's medical issues. It will most likely resolve once the medical issues will be resolved as well P No treatment recommended except for trickle OG tube feeding as discussed before. I will sign off, please, call me with questions.
[2018-12-03] MEDS ORDERED: CHLORPROMAZINE HCL INJ 25 MG/1 ML AMPULE ONE (23:34)
[2018-12-04] MEDS: CHLORPROMAZINE HCL INJ 25 MG/1 ML AMPULE IV PRN ×3 (00:02→21:43)
[2018-12-04] MEDS: PROPOFOL 1,000 MG/100 ML INFUS..BTL IV PRN ×10 (00:02→22:40)
[2018-12-04] MEDS: LEVALBUTEROL HCL NEB 1.25 MG/3 ML AMPUL NEB SCH ×3 (00:31→15:36)
[2018-12-04] MEDS: IPRATROPIUM BROMIDE 0.02% NEB 0.5 MG/2.5 ML AMPUL NEB SCH ×3 (00:31→15:36)
[2018-12-04 04:04] LABS: ABSOLUTE BASOPHILS # (AUTO) 0.1 10^3/uL (0.0-0.2); ABSOLUTE EOSINOPHILS # (AUTO) 0.1 10^3/uL (0.0-0.6); ABSOLUTE LYMPHOCYTES (AUTO) 2.1 10^3/uL (0.5-4.7); ABSOLUTE MONOCYTES (AUTO) 0.6 10^3/uL (0.1-1.4); ABSOLUTE NEUT (AUTO) 3.9 10^3/uL (1.7-8.2); BASOPHILS % (AUTO) 1.3 % (0-2); EOSINOPHILS % (AUTO) 1.5 % (0-6); HEMOGLOBIN 12.2 g/dL (12.0-15.5); LYMPHOCYTES % (AUTO) 31.2 % (13-45); MEAN CORPUSCULAR HEMOGLOBIN 25.3 pg (27.0-33.4); MEAN CORPUSCULAR HGB CONC 32.2 g/dL (32.0-36.0); MEAN CORPUSCULAR VOLUME 79 fl (80-97); MONOCYTES % (AUTO) 8.1 % (3-13); PLATELET COUNT 254 10^3/uL (150-450); RED BLOOD COUNT 4.83 10^6/uL (3.72-5.28); RED CELL DISTRIBUTION WIDTH 20.9 % (11.5-14.0); SEGMENTED NEUTROPHILS % (AUTO) 57.9 % (42-78); TOTAL CELLS COUNTED % (AUTO) 100 %; WHITE BLOOD COUNT 6.8 10^3/uL (4.0-10.5)
[2018-12-04 04:18] LABS: ANION GAP 17 (5-19); BLOOD UREA NITROGEN 22 mg/dL (7-20); CALCIUM 9.5 mg/dL (8.4-10.2); CARBON DIOXIDE 27 mmol/L (22-30); CHLORIDE 91 mmol/L (98-107); GLUCOSE 73 mg/dL (75-110); POTASSIUM 3.7 mmol/L (3.6-5.0)
[2018-12-04 04:25] LABS: ARTERIAL BLOOD BASE EXCESS 6.5 mmol/L; ARTERIAL BLOOD H2CO3 1.21 mmol/L (1.05-1.35); ARTERIAL BLOOD HCO3 30.3 mmol/L (20-24); ARTERIAL BLOOD O2 SATURATION 94.6 % (94-98); ARTERIAL BLOOD PCO2 40.2 mmHg (35-45); ARTERIAL BLOOD PO2 66.7 mmHg (80-100); ARTERIAL BLOOD TOTAL CO2 31.5 mmol/L (21-25)
[2018-12-04 04:43] LABS: ARTERIAL BLOOD FIO2 40%
[2018-12-04] MEDS: HEPARIN SOD (PORCINE) 5,000 UNIT/ML 1 ML VIAL SUBCUT SCH ×3 (05:42→21:43)
[2018-12-04] MEDS: BUDESONIDE NEB 0.5 MG/2 ML AMPUL NEB SCH ×2 (08:32→19:25)
[2018-12-04] MEDS: AMINO AC/PROTEIN HYDR/WHEY PRO 11 GM/45 ML PKT NG SCH ×2 (09:25→17:41)
[2018-12-04] MEDS: MULTIVITAMIN ORAL LIQUID 60 ML NG SCH (09:25)
[2018-12-04] MEDS: PANTOT AC/MIN OIL/PET HY-PHL OINT 50 GM TOP SCH ×2 (09:25→21:43)
[2018-12-04] MEDS: PANTOPRAZOLE SODIUM 40 MG VIAL IV SCH ×2 (09:25→21:44)
[2018-12-04] MEDS ORDERED: THIAMINE HCL INJ 200 MG/2 ML VIAL IV SCH (10:00)
--- NOTE | 2018-12-04 10:19 | RADIOLOGY REPORT (SQ) ---
EXAM DESCRIPTION: CHEST SINGLE VIEW COMPLETED DATE/TIME: 12/04/2018 6:22 am REASON FOR STUDY: resp failure COMPARISON: 12/03/2018 EXAM PARAMETERS: NUMBER OF VIEWS: One view. TECHNIQUE: Single frontal radiographic view of the chest acquired. RADIATION DOSE: NA LIMITATIONS: None. FINDINGS: LUNGS AND PLEURA: Persistent left basilar opacification with obscuration of the left hemid iaphragm. Likely small bilateral effusions. No pneumothorax. MEDIASTINUM AND HILAR STRUCTURES: No masses. Contour normal. HEART AND VASCULAR STRUCTURES: Heart normal in size. Normal vasculature. BONES: No acute findings. HARDWARE: Endotracheal tube tip overlies midthoracic trachea. Enteric tube tip below diaphragm but e xcluded by collimation. OTHER: No other significant finding. IMPRESSION: Persistent left basilar opacification possibly atelectasis or infection. Small bilatera l effusions, stable. Endotracheal tube tip overlies midthoracic trachea. Remaining lines and tubes as above. TECHNICAL DOCUMENTATION: JOB ID: [id number] [employer]- All Rights Reserved Reading location - IP/workstation name: [email or web address]
[2018-12-04] MEDS: THIAMINE HCL 100 MG in NORMAL SALINE 50 ML IV SCH (10:30)
--- NOTE | 2018-12-04 11:08 | PDOC PROGRESS REPORT ---
Subjective Progress Note for:: 12/04/18 Subjective:: Patient is still intubated but only mildly sedated so she opens her eyes. She has made a very good amount of urine output for the last for 4 days with the Lasix drip. It was decreased to 5mL/hr yesterday. Her urine output is still good. Reason For Visit: ACUTE RESPIRATORY FAILURE WITH HYPOXIA Physical Exam Vital Signs: Temp Pulse Resp BP Pulse Ox 98.8 F 88 16 109/70 92 12/04/18 10:23 12/04/18 10:00 12/04/18 10:23 12/04/18 10:23 12/04/18 10:23 Intake & Output 12/03/18 12/04/18 12/05/18 06:59 06:59 06:59 Intake Total 2397 2250 200 Output Total 7770 3560 600 Balance -5373 -1310 -400 Weight 120.2 kg 120.2 kg Exam: General appearance: PRESENT: Intubated Head exam: PRESENT: atraumatic, normocephalic Eye exam: PRESENT: conjunctiva slightly pale, PERRLA. ABSENT: scleral icterus Neck exam: ABSENT: JVD Respiratory exam: PRESENT: Diminished breath sounds. ABSENT: crackles, rales, rhonchi, unlabored, wheezes Cardiovascular exam: PRESENT: Regular rate rhythm -+S1, +S2. ABSENT: diastolic murmur, systolic murmur GI/Abdominal exam: PRESENT: No bowel sounds, soft. Subcutaneous edema significantly improved ABSENT: guarding, mass, tenderness Extremities exam: Anasarca continues to improve, her skin on her feet has been wrinkled from fluid removal Neurological exam: PRESENT: Mildly sedated. Skin exam: PRESENT: dry, warm, Results Laboratory Results: 12/04/18 03:21 12/04/18 03:21 12/04/18 12/04/18 12/04/18 03:21 03:21 04:01 WBC 6.8 RBC 4.83 Hgb 12.2 Hct 38.0 MCV 79 L MCH 25.3 L MCHC 32.2 RDW 20.9 H Plt Count 254 Seg Neutrophils % 57.9 Lymphocytes % 31.2 Monocytes % 8.1 Eosinophils % 1.5 Basophils % 1.3 Absolute Neutrophils 3.9 Absolute Lymphocytes 2.1 Absolute Monocytes 0.6 Absolute Eosinophils 0.1 Absolute Basophils 0.1 Carbonic Acid 1.21 HCO3/H2CO3 Ratio 25:1 ABG pH 7.50 H ABG pCO2 40.2 ABG pO2 66.7 L ABG HCO3 30.3 H ABG O2 Saturation 94.6 ABG Base Excess 6.5 FiO2 40% Sodium 135.1 L Potassium 3.7 Chloride 91 L Carbon Dioxide 27 Anion Gap 17 BUN 22 H Creatinine 1.25 Est GFR ( Amer) 59 L Est GFR (Non-Af Amer) 48 L Glucose 73 L Calcium 9.5 Magnesium 2.1 11/25/18 11/25/18 11/25/18 01:58 07:39 07:39 Creatine Kinase 50 CK-MB (CK-2) 0.53 Troponin I < 0.012 < 0.012 NT-Pro-B Natriuret Pep 766 H 11/25/18 11/25/18 11/25/18 12:03 12:03 18:17 Creatine Kinase 37 29 L CK-MB (CK-2) 0.37 Troponin I < 0.012 NT-Pro-B Natriuret Pep 11/25/18 11/26/18 18:17 03:32 Creatine Kinase CK-MB (CK-2) < 0.22 Troponin I < 0.012 NT-Pro-B Natriuret Pep 490 H Impressions: Abdomen Ultrasound 11/25/18 01:12 IMPRESSION: No free fluid identified within the upper quadrants. Evaluation of the lower quadrants was limited due to patient positioning as per the technologist. Head CT 11/27/18 00:00 IMPRESSION: Sinus disease. No acute intracranial imaging findings. EVIDENCE OF ACUTE STROKE: NO. Abdomen/Pelvis CT 12/03/18 00:00 IMPRESSION: Bilateral lower lobe consolidation -atelectasis. No pneumothorax pleural effusion. Endotracheal tube is present with tip 1.3 cm above the level of the kirill. IMPRESSION: Small amount of pelvic free fluid. No bowel dilatation. Chest CT 12/03/18 00:00 IMPRESSION: Bilateral lower lobe consolidation -atelectasis. No pneumothorax pleural effusion. Endotracheal tube is present with tip 1.3 cm above the level of the kirill. IMPRESSION: Small amount of pelvic free fluid. No bowel dilatation. KUB X-Ray 12/03/18 12:02 IMPRESSION: NO RADIOGRAPHIC EVIDENCE FOR ACUTE ABDOMINAL DISEASE.NG tube tip overlies the pyloric region of the stomach. Chest X-Ray 12/04/18 06:00 IMPRESSION: Persistent left basilar opacification possibly atelectasis or infection. Small bilateral effusions, stable. Endotracheal tube tip overlies midthoracic trachea. Remaining lines and tubes as above. Assessment & Plan - Diagnosis (1) Acute kidney injury Is this a current diagnosis for this admission?: Yes Plan: Patient is currently nonoliguric. Positive response to Lasix drip. Kidney function improving. Decrease Lasix drip to 2 mL/hour.. No need of renal replacement therapy at this time yet. (2) Acute respiratory failure with hypoxia Is this a current diagnosis for this admission?: Yes (3) Anasarca Is this a current diagnosis for this admission?: Yes Plan: Improving with Lasix drip. (4) Edema due to hypoalbuminemia Is this a current diagnosis for this admission?: Yes Plan: Albumin is improved to almost normal. (5) Alcohol dependence Qualifiers: Substance use status: unspecified alcohol-induced disorder Qualified Code(s): F10.29 - Alcohol dependence with unspecified alcohol-induced disorder Is this a current diagnosis for this admission?: Yes (6) Metabolic alkalosis Is this a current diagnosis for this admission?: Yes Plan: Decrease Lasix drip as above. (7) Hypokalemia Is this a current diagnosis for this admission?: Yes Plan: Replace per electrolyte protocol. (8) Cocaine use Is this a current diagnosis for this admission?: Yes (9) Morbid obesity with BMI of 45.0-49.9, adult Is this a current diagnosis for this admission?: Yes - Notes Notes: Discussed with Dr. De La Garza - Time Time with patient: 15-25 minutes
--- NOTE | 2018-12-04 11:48 | PDOC PROGRESS REPORT ---
Subjective Progress Note for:: 11/26/18 Subjective:: Sedated and intubated Reason For Visit: ACUTE RESPIRATORY FAILURE WITH HYPOXIA Physical Exam Vital Signs: Temp Pulse Resp BP Pulse Ox 97.5 F 89 16 100/70 95 11/27/18 12:00 11/27/18 12:00 11/27/18 12:00 11/27/18 12:00 11/27/18 12:00 Intake & Output 11/26/18 11/27/18 11/28/18 06:59 06:59 06:59 Intake Total 2565.2 4826 462 Output Total 5950 3405 750 Balance -3384.8 1421 -288 Weight 139 kg 139.6 kg General appearance: PRESENT: disheveled, morbidly obese. ABSENT: no acute distress, cooperative Head exam: PRESENT: atraumatic, normocephalic Eye exam: PRESENT: conjunctiva pale. ABSENT: EOMI, nystagmus, periorbital swelling Mouth exam: PRESENT: dry mucosa, neck supple, tongue midline, other - ET tube Neck exam: ABSENT: carotid bruit, JVD, lymphadenopathy, thyromegaly Respiratory exam: PRESENT: decreased breath sounds, prolonged expiratory phas, rales, rhonchi, unlabored. ABSENT: retraction, stridor, tachypnea Cardiovascular exam: PRESENT: RRR, +S1, +S2, tachycardia Pulses: PRESENT: normal radial pulses GI/Abdominal exam: PRESENT: diminished bowel sounds, hernia, rigid. ABSENT: mass Gentrourinary exam: PRESENT: indwelling catheter Extremities exam: PRESENT: +2 edema. ABSENT: calf tenderness, clubbing, joint swelling Musculoskeletal exam: ABSENT: deformity, dislocation Neurological exam: ABSENT: awake Skin exam: PRESENT: dry, warm Results Laboratory Results: 11/27/18 03:05 11/27/18 10:35 11/26/18 11/26/18 11/26/18 15:54 17:30 23:20 WBC RBC Hgb Hct MCV MCH MCHC RDW Plt Count Carbonic Acid 1.64 H HCO3/H2CO3 Ratio 22:1 ABG pH 7.46 H ABG pCO2 54.4 H ABG pO2 64.4 L ABG HCO3 37.6 H ABG O2 Saturation 93.2 L ABG Base Excess 11.8 FiO2 60% Sodium 137.6 136.7 L Potassium 3.3 L 3.7 Chloride 93 L 91 L Carbon Dioxide 39 H 38 H Anion Gap 6 8 BUN 10 10 Creatinine 1.33 H 1.34 H Est GFR ( Amer) 55 L 54 L Est GFR (Non-Af Amer) 45 L 45 L Glucose 90 103 Calcium 7.4 L 7.4 L Magnesium Total Bilirubin AST Alkaline Phosphatase Total Protein Albumin 11/27/18 11/27/18 11/27/18 00:33 03:05 03:05 WBC 7.5 RBC 4.74 Hgb 11.8 L Hct 37.6 MCV 79 L MCH 25.0 L MCHC 31.5 L RDW 21.5 H Plt Count 139 L Carbonic Acid HCO3/H2CO3 Ratio ABG pH ABG pCO2 ABG pO2 ABG HCO3 ABG O2 Saturation ABG Base Excess FiO2 Sodium 136.5 L 138.6 Potassium 3.9 3.7 Chloride 93 L 93 L Carbon Dioxide 38 H 37 H Anion Gap 6 9 BUN 10 10 Creatinine 1.39 H 1.38 H Est GFR ( Amer) 52 L 52 L Est GFR (Non-Af Amer) 43 L 43 L Glucose 94 108 Calcium 7.6 L 7.6 L Magnesium 1.5 L Total Bilirubin 2.5 H AST 23 Alkaline Phosphatase 235 H Total Protein 7.0 Albumin 3.0 L 11/27/18 11/27/18 05:37 10:35 WBC RBC Hgb Hct MCV MCH MCHC RDW Plt Count Carbonic Acid 1.63 H HCO3/H2CO3 Ratio 23:1 ABG pH 7.47 H ABG pCO2 54.1 H ABG pO2 59.9 L ABG HCO3 38.7 H ABG O2 Saturation 91.9 L ABG Base Excess 12.9 FiO2 60% Sodium 136.8 L Potassium 3.7 Chloride 91 L Carbon Dioxide 38 H Anion Gap 8 BUN 10 Creatinine 1.39 H Est GFR ( Amer) 52 L Est GFR (Non-Af Amer) 43 L Glucose 102 Calcium 7.4 L Magnesium Total Bilirubin AST Alkaline Phosphatase Total Protein Albumin 11/25/18 02:09 Catheterized Urine Urine Culture - Final NO GROWTH 2 DAYS 11/25/18 11/25/18 11/25/18 01:58 07:39 07:39 Creatine Kinase 50 CK-MB (CK-2) 0.53 Troponin I < 0.012 < 0.012 NT-Pro-B Natriuret Pep 766 H 11/25/18 11/25/18 11/25/18 12:03 12:03 18:17 Creatine Kinase 37 29 L CK-MB (CK-2) 0.37 Troponin I < 0.012 NT-Pro-B Natriuret Pep 11/25/18 11/26/18 18:17 03:32 Creatine Kinase CK-MB (CK-2) < 0.22 Troponin I < 0.012 NT-Pro-B Natriuret Pep 490 H Impressions: Abdomen Ultrasound 11/25/18 01:12 IMPRESSION: No free fluid identified within the upper quadrants. Evaluation of the lower quadrants was limited due to patient positioning as per the technologist. Chest CT 11/25/18 03:35 IMPRESSION: 1. Endotracheal tube with tip in the right mainstem bronchus. Recommend repositioning. 2. Bilateral dependent airspace opacities may be related to atelectasis. Developing pneumonic process or pneumonitis could produce the same appearance. 3. Enlarged right axillary lymph nodes as well as a 2.7 cm inferior right breast nodule. These may be reactive however other etiology not excluded. Correlation with right breast/axillary ultrasound and possible mammography recommended. 4. Body wall anasarca. 5. Small amount of ascites. 6. Hepatic steatosis. 7. Cardiomegaly. This exam was performed according to our departmental dose-optimization program, which includes automated exposure control, adjustment of the mA and/or kV according to patient size and/or use of iterative reconstruction technique. Head CT 11/25/18 03:35 IMPRESSION: No acute intracranial findings. Abdomen/Pelvis CT 11/25/18 03:36 IMPRESSION: 1. Endotracheal tube with tip in the right mainstem bronchus. Recommend repositioning. 2. Bilateral dependent airspace opacities may be related to atelectasis. Developing pneumonic process or pneumonitis could produce the same appearance. 3. Enlarged right axillary lymph nodes as well as a 2.7 cm inferior right breast nodule. These may be reactive however other etiology not excluded. Correlation with right breast/axillary ultrasound and possible mammography recommended. 4. Body wall anasarca. 5. Small amount of ascites. 6. Hepatic steatosis. 7. Cardiomegaly. This exam was performed according to our departmental dose-optimization program, which includes automated exposure control, adjustment of the mA and/or kV according to patient size and/or use of iterative reconstruction technique. Chest X-Ray 11/27/18 06:00 IMPRESSION: NO CHANGE IN APPEARANCE OF THE CHEST. Assessment & Plan - Diagnosis (1) Acute respiratory failure with hypoxia Is this a current diagnosis for this admission?: Yes Plan: Currently elevated FiO2 requirements and elevated minute ventilation to maintain acceptable ABG (2) Edema due to hypoalbuminemia Is this a current diagnosis for this admission?: Yes (3) Pneumonia Qualifiers: Pneumonia type: due to unspecified organism Laterality: bilateral Is this a current diagnosis for this admission?: Yes Plan: No positive cultures thus far (4) Morbid obesity with BMI of 40.0-44.9, adult Is this a current diagnosis for this admission?: Yes Plan: When stable consider nutritional consult (5) Pulmonary edema Qualifiers: Chronicity: acute Qualified Code(s): J81.0 - Acute pulmonary edema Is this a current diagnosis for this admission?: Yes Plan: Diuresis (6) Tobacco dependence Is this a current diagnosis for this admission?: Yes Plan: Transdermal nicotine (7) CHF (congestive heart failure) Is this a current diagnosis for this admission?: Yes Plan: Generalized anasarca (8) Cellulitis of both lower extremities Is this a current diagnosis for this admission?: Yes Plan: Cephalosporin or clindamycin - Time Total Critical Time (Minutes): 45
--- NOTE | 2018-12-04 11:52 | PDOC PROGRESS REPORT ---
Subjective Progress Note for:: 11/27/18 Subjective:: Sedated and intubated Reason For Visit: ACUTE RESPIRATORY FAILURE WITH HYPOXIA Physical Exam Vital Signs: Temp Pulse Resp BP Pulse Ox 97.5 F 89 16 100/70 95 11/27/18 12:00 11/27/18 12:00 11/27/18 12:00 11/27/18 12:00 11/27/18 12:00 Intake & Output 11/26/18 11/27/18 11/28/18 06:59 06:59 06:59 Intake Total 2565.2 4826 462 Output Total 5950 3405 750 Balance -3384.8 1421 -288 Weight 139 kg 139.6 kg General appearance: PRESENT: no acute distress, disheveled, morbidly obese Head exam: PRESENT: atraumatic, normocephalic Eye exam: PRESENT: conjunctiva pale. ABSENT: nystagmus, periorbital swelling Mouth exam: PRESENT: dry mucosa, neck supple, tongue midline, other - ET tube Neck exam: ABSENT: carotid bruit, full ROM, JVD, lymphadenopathy, meningismus, tenderness, thyromegaly, tracheal deviation, tracheostomy, other Respiratory exam: PRESENT: decreased breath sounds, prolonged expiratory phas, rales, rhonchi, symmetrical, unlabored. ABSENT: retraction, stridor, tachypnea Cardiovascular exam: PRESENT: RRR, +S1, +S2, tachycardia Pulses: PRESENT: normal radial pulses GI/Abdominal exam: PRESENT: firm, hernia, mass Gentrourinary exam: PRESENT: indwelling catheter Extremities exam: PRESENT: +1 edema. ABSENT: calf tenderness, clubbing, joint swelling Musculoskeletal exam: ABSENT: ambulatory, deformity, dislocation Neurological exam: ABSENT: awake Skin exam: PRESENT: dry, warm Results Laboratory Results: 11/27/18 03:05 11/27/18 10:35 11/26/18 11/26/18 11/26/18 15:54 17:30 23:20 WBC RBC Hgb Hct MCV MCH MCHC RDW Plt Count Carbonic Acid 1.64 H HCO3/H2CO3 Ratio 22:1 ABG pH 7.46 H ABG pCO2 54.4 H ABG pO2 64.4 L ABG HCO3 37.6 H ABG O2 Saturation 93.2 L ABG Base Excess 11.8 FiO2 60% Sodium 137.6 136.7 L Potassium 3.3 L 3.7 Chloride 93 L 91 L Carbon Dioxide 39 H 38 H Anion Gap 6 8 BUN 10 10 Creatinine 1.33 H 1.34 H Est GFR ( Amer) 55 L 54 L Est GFR (Non-Af Amer) 45 L 45 L Glucose 90 103 Calcium 7.4 L 7.4 L Magnesium Total Bilirubin AST Alkaline Phosphatase Total Protein Albumin 11/27/18 11/27/18 11/27/18 00:33 03:05 03:05 WBC 7.5 RBC 4.74 Hgb 11.8 L Hct 37.6 MCV 79 L MCH 25.0 L MCHC 31.5 L RDW 21.5 H Plt Count 139 L Carbonic Acid HCO3/H2CO3 Ratio ABG pH ABG pCO2 ABG pO2 ABG HCO3 ABG O2 Saturation ABG Base Excess FiO2 Sodium 136.5 L 138.6 Potassium 3.9 3.7 Chloride 93 L 93 L Carbon Dioxide 38 H 37 H Anion Gap 6 9 BUN 10 10 Creatinine 1.39 H 1.38 H Est GFR ( Amer) 52 L 52 L Est GFR (Non-Af Amer) 43 L 43 L Glucose 94 108 Calcium 7.6 L 7.6 L Magnesium 1.5 L Total Bilirubin 2.5 H AST 23 Alkaline Phosphatase 235 H Total Protein 7.0 Albumin 3.0 L 11/27/18 11/27/18 05:37 10:35 WBC RBC Hgb Hct MCV MCH MCHC RDW Plt Count Carbonic Acid 1.63 H HCO3/H2CO3 Ratio 23:1 ABG pH 7.47 H ABG pCO2 54.1 H ABG pO2 59.9 L ABG HCO3 38.7 H ABG O2 Saturation 91.9 L ABG Base Excess 12.9 FiO2 60% Sodium 136.8 L Potassium 3.7 Chloride 91 L Carbon Dioxide 38 H Anion Gap 8 BUN 10 Creatinine 1.39 H Est GFR ( Amer) 52 L Est GFR (Non-Af Amer) 43 L Glucose 102 Calcium 7.4 L Magnesium Total Bilirubin AST Alkaline Phosphatase Total Protein Albumin 11/25/18 02:09 Catheterized Urine Urine Culture - Final NO GROWTH 2 DAYS 11/25/18 11/25/18 11/25/18 01:58 07:39 07:39 Creatine Kinase 50 CK-MB (CK-2) 0.53 Troponin I < 0.012 < 0.012 NT-Pro-B Natriuret Pep 766 H 11/25/18 11/25/18 11/25/18 12:03 12:03 18:17 Creatine Kinase 37 29 L CK-MB (CK-2) 0.37 Troponin I < 0.012 NT-Pro-B Natriuret Pep 11/25/18 11/26/18 18:17 03:32 Creatine Kinase CK-MB (CK-2) < 0.22 Troponin I < 0.012 NT-Pro-B Natriuret Pep 490 H Impressions: Abdomen Ultrasound 11/25/18 01:12 IMPRESSION: No free fluid identified within the upper quadrants. Evaluation of the lower quadrants was limited due to patient positioning as per the technologist. Chest CT 11/25/18 03:35 IMPRESSION: 1. Endotracheal tube with tip in the right mainstem bronchus. Recommend repositioning. 2. Bilateral dependent airspace opacities may be related to atelectasis. Developing pneumonic process or pneumonitis could produce the same appearance. 3. Enlarged right axillary lymph nodes as well as a 2.7 cm inferior right breast nodule. These may be reactive however other etiology not excluded. Correlation with right breast/axillary ultrasound and possible mammography recommended. 4. Body wall anasarca. 5. Small amount of ascites. 6. Hepatic steatosis. 7. Cardiomegaly. This exam was performed according to our departmental dose-optimization program, which includes automated exposure control, adjustment of the mA and/or kV according to patient size and/or use of iterative reconstruction technique. Head CT 11/25/18 03:35 IMPRESSION: No acute intracranial findings. Abdomen/Pelvis CT 11/25/18 03:36 IMPRESSION: 1. Endotracheal tube with tip in the right mainstem bronchus. Recommend repositioning. 2. Bilateral dependent airspace opacities may be related to atelectasis. Developing pneumonic process or pneumonitis could produce the same appearance. 3. Enlarged right axillary lymph nodes as well as a 2.7 cm inferior right breast nodule. These may be reactive however other etiology not excluded. Correlation with right breast/axillary ultrasound and possible mammography recommended. 4. Body wall anasarca. 5. Small amount of ascites. 6. Hepatic steatosis. 7. Cardiomegaly. This exam was performed according to our departmental dose-optimization program, which includes automated exposure control, adjustment of the mA and/or kV according to patient size and/or use of iterative reconstruction technique. Chest X-Ray 11/27/18 06:00 IMPRESSION: NO CHANGE IN APPEARANCE OF THE CHEST. Assessment & Plan - Diagnosis (1) Acute respiratory failure with hypoxia Is this a current diagnosis for this admission?: Yes Plan: Currently elevated FiO2 requirements and elevated minute ventilation to maintain acceptable ABG (2) CHF (congestive heart failure) Is this a current diagnosis for this admission?: Yes Plan: Generalized anasarca (3) Cellulitis of both lower extremities Is this a current diagnosis for this admission?: Yes Plan: Cephalosporin or clindamycin (4) Pneumonia Qualifiers: Pneumonia type: due to unspecified organism Laterality: bilateral Is this a current diagnosis for this admission?: Yes Plan: No positive cultures thus far (5) Morbid obesity with BMI of 40.0-44.9, adult Is this a current diagnosis for this admission?: Yes Plan: When stable consider nutritional consult (6) Pulmonary edema Qualifiers: Chronicity: acute Qualified Code(s): J81.0 - Acute pulmonary edema Is this a current diagnosis for this admission?: Yes (7) Tobacco dependence Is this a current diagnosis for this admission?: Yes Plan: Transdermal nicotine - Time Total Critical Time (Minutes): 45
--- NOTE | 2018-12-04 11:54 | PDOC PROGRESS REPORT ---
Subjective Progress Note for:: 11/28/18 Subjective:: Sedated and intubated Reason For Visit: ACUTE RESPIRATORY FAILURE WITH HYPOXIA Physical Exam Vital Signs: Temp Pulse Resp BP Pulse Ox 98.4 F 87 20 111/77 93 11/28/18 08:00 11/28/18 08:15 11/28/18 08:15 11/28/18 08:00 11/28/18 08:15 Intake & Output 11/27/18 11/28/18 11/29/18 06:59 06:59 06:59 Intake Total 4899 2617 1182 Output Total 340 3725 500 Balance 1421 -1108 682 Weight 139.6 kg 138.3 kg General appearance: PRESENT: no acute distress, disheveled, morbidly obese. ABSENT: cooperative Head exam: PRESENT: atraumatic, normocephalic Eye exam: PRESENT: conjunctiva pale. ABSENT: nystagmus, periorbital swelling Mouth exam: PRESENT: dry mucosa, neck supple, tongue midline, other - ET tube Neck exam: ABSENT: carotid bruit, full ROM, JVD, lymphadenopathy, meningismus, tenderness, thyromegaly, tracheal deviation, tracheostomy, other Respiratory exam: PRESENT: decreased breath sounds, prolonged expiratory phas, rales, rhonchi, symmetrical, unlabored. ABSENT: retraction, stridor Cardiovascular exam: PRESENT: RRR, +S1, +S2 Pulses: PRESENT: normal radial pulses GI/Abdominal exam: PRESENT: firm, hernia. ABSENT: mass Gentrourinary exam: PRESENT: indwelling catheter Extremities exam: PRESENT: +1 edema. ABSENT: calf tenderness, clubbing, joint s welling Musculoskeletal exam: ABSENT: ambulatory, deformity, dislocation Neurological exam: ABSENT: awake Skin exam: PRESENT: dry, warm Results Laboratory Results: 11/28/18 04:16 11/28/18 04:16 11/27/18 11/27/18 11/27/18 10:35 16:25 16:46 WBC RBC Hgb Hct MCV MCH MCHC RDW Plt Count Seg Neutrophils % Lymphocytes % Monocytes % Eosinophils % Basophils % Absolute Neutrophils Absolute Lymphocytes Absolute Monocytes Absolute Eosinophils Absolute Basophils Carbonic Acid 1.49 H HCO3/H2CO3 Ratio 25:1 ABG pH 7.50 H ABG pCO2 49.5 H ABG pO2 49.5 L ABG HCO3 37.4 H ABG O2 Saturation 87.5 L ABG Base Excess 12.4 FiO2 90% Sodium 136.8 L Cancelled Potassium 3.7 Cancelled Chloride 91 L Cancelled Carbon Dioxide 38 H Cancelled Anion Gap 8 Cancelled BUN 10 Cancelled Creatinine 1.39 H Cancelled Est GFR ( Amer) 52 L Cancelled Est GFR (Non-Af Amer) 43 L Cancelled Glucose 102 Cancelled Calcium 7.4 L Cancelled Magnesium Total Bilirubin AST Alkaline Phosphatase Total Protein Albumin 11/27/18 11/27/18 11/27/18 20:20 20:20 20:20 WBC 5.8 RBC 4.79 Hgb 12.0 Hct 37.8 MCV 79 L MCH 25.1 L MCHC 31.8 L RDW 20.7 H Plt Count 128 L Seg Neutrophils % Not Reportable Lymphocytes % Not Reportable Monocytes % Not Reportable Eosinophils % Not Reportable Basophils % Not Reportable Absolute Neutrophils Not Reportable Absolute Lymphocytes Not Reportable Absolute Monocytes Not Reportable Absolute Eosinophils Not Reportable Absolute Basophils Not Reportable Carbonic Acid HCO3/H2CO3 Ratio ABG pH ABG pCO2 ABG pO2 ABG HCO3 ABG O2 Saturation ABG Base Excess FiO2 Sodium Cancelled Cancelled Potassium Cancelled Cancelled Chloride Cancelled Cancelled Carbon Dioxide Cancelled Cancelled Anion Gap Cancelled Cancelled BUN Cancelled Cancelled Creatinine Cancelled Cancelled Est GFR ( Amer) Cancelled Cancelled Est GFR (Non-Af Amer) Cancelled Cancelled Glucose Cancelled Cancelled Calcium Cancelled Cancelled Magnesium Cancelled Total Bilirubin Cancelled AST Cancelled Alkaline Phosphatase Cancelled Total Protein Cancelled Albumin Cancelled 11/27/18 11/28/18 11/28/18 22:08 01:32 03:38 WBC RBC Hgb Hct MCV MCH MCHC RDW Plt Count Seg Neutrophils % Lymphocytes % Monocytes % Eosinophils % Basophils % Absolute Neutrophils Absolute Lymphocytes Absolute Monocytes Absolute Eosinophils Absolute Basophils Carbonic Acid 1.42 H 1.10 HCO3/H2CO3 Ratio 26:1 32:1 ABG pH 7.52 H 7.60 H* ABG pCO2 47.3 H 36.7 ABG pO2 35.0 L* 62.2 L ABG HCO3 37.7 H 35.5 H ABG O2 Saturation 72.7 L 95.1 ABG Base Excess 13.1 13.2 FiO2 90% 90% Sodium 138.1 Potassium 3.7 Chloride 92 L Carbon Dioxide 36 H Anion Gap 10 BUN 10 Creatinine 1.47 H Est GFR ( Amer) 49 L Est GFR (Non-Af Amer) 40 L Glucose 90 Calcium 7.6 L Magnesium 1.7 Total Bilirubin 3.5 H AST 21 Alkaline Phosphatase 222 H Total Protein 6.7 Albumin 3.1 L 11/28/18 11/28/18 04:16 04:16 WBC 5.4 RBC 4.61 Hgb 11.3 L Hct 35.7 L MCV 78 L MCH 24.5 L MCHC 31.6 L RDW 21.1 H Plt Count 130 L Seg Neutrophils % Lymphocytes % Monocytes % Eosinophils % Basophils % Absolute Neutrophils Absolute Lymphocytes Absolute Monocytes Absolute Eosinophils Absolute Basophils Carbonic Acid HCO3/H2CO3 Ratio ABG pH ABG pCO2 ABG pO2 ABG HCO3 ABG O2 Saturation ABG Base Excess FiO2 Sodium 137.9 Potassium 3.6 Chloride 95 L Carbon Dioxide 33 H Anion Gap 10 BUN 10 Creatinine 1.55 H Est GFR ( Amer) 46 L Est GFR (Non-Af Amer) 38 L Glucose 97 Calcium 7.8 L Magnesium 1.8 Total Bilirubin 4.1 H AST 22 Alkaline Phosphatase 221 H Total Protein 6.9 Albumin 3.1 L 11/25/18 02:09 Catheterized Urine Urine Culture - Final NO GROWTH 2 DAYS 11/25/18 11/25/18 11/25/18 01:58 07:39 07:39 Creatine Kinase 50 CK-MB (CK-2) 0.53 Troponin I < 0.012 < 0.012 NT-Pro-B Natriuret Pep 766 H 11/25/18 11/25/18 11/25/18 12:03 12:03 18:17 Creatine Kinase 37 29 L CK-MB (CK-2) 0.37 Troponin I < 0.012 NT-Pro-B Natriuret Pep 11/25/18 11/26/18 18:17 03:32 Creatine Kinase CK-MB (CK-2) < 0.22 Troponin I < 0.012 NT-Pro-B Natriuret Pep 490 H Impressions: Abdomen Ultrasound 11/25/18 01:12 IMPRESSION: No free fluid identified within the upper quadrants. Evaluation of the lower quadrants was limited due to patient positioning as per the technologist. Abdomen/Pelvis CT 11/25/18 03:36 IMPRESSION: 1. Endotracheal tube with tip in the right mainstem bronchus. Recommend repositioning. 2. Bilateral dependent airspace opacities may be related to atelectasis. Developing pneumonic process or pneumonitis could produce the same appearance. 3. Enlarged right axillary lymph nodes as well as a 2.7 cm inferior right breast nodule. These may be reactive however other etiology not excluded. Correlation with right breast/axillary ultrasound and possible mammography recommended. 4. Body wall anasarca. 5. Small amount of ascites. 6. Hepatic steatosis. 7. Cardiomegaly. This exam was performed according to our departmental dose-optimization program, which includes automated exposure control, adjustment of the mA and/or kV according to patient size and/or use of iterative reconstruction technique. Chest CT 11/27/18 00:00 IMPRESSION: The endotracheal tube remains in low position. The tip of the tube is 1 cm above the kirill. Small pleural effusions. Airspace disease in both lower lobes and in the right middle lobe. Atelectasis versus pneumonia. Cardiomegaly. No adam pulmonary edema. Head CT 11/27/18 00:00 IMPRESSION: Sinus disease. No acute intracranial imaging findings. EVIDENCE OF ACUTE STROKE: NO. Chest X-Ray 11/28/18 06:00 IMPRESSION: Improved aeration with persistent left retrocardiac opacity, possi sheldon atelectasis or infection. Endotracheal tube tip overlies midthoracic trachea. Assessment & Plan - Diagnosis (1) Acute respiratory failure with hypoxia Is this a current diagnosis for this admission?: Yes Plan: Currently elevated FiO2 requirements and elevated minute ventilation to maintain acceptable ABG (2) CHF (congestive heart failure) Is this a current diagnosis for this admission?: Yes Plan: Generalized anasarca (3) Cellulitis of both lower extremities Is this a current diagnosis for this admission?: Yes Plan: Cephalosporin or clindamycin (4) Pneumonia Qualifiers: Pneumonia type: due to unspecified organism Laterality: bilateral Lung location: lower lobe of lung Qualified Code(s): J18.1 - Lobar pneumonia, unspecified organism Is this a current diagnosis for this admission?: Yes Plan: No positive cultures thus far (5) Morbid obesity with BMI of 40.0-44.9, adult Is this a current diagnosis for this admission?: Yes Plan: When stable consider nutritional consult (6) Pulmonary edema Qualifiers: Chronicity: acute Qualified Code(s): J81.0 - Acute pulmonary edema Is this a current diagnosis for this admission?: Yes Plan: Diuresis - Time Total Critical Time (Minutes): 40
--- NOTE | 2018-12-04 11:57 | PDOC PROGRESS REPORT ---
Subjective Progress Note for:: 11/29/18 Subjective:: Sedated and intubated Reason For Visit: ACUTE RESPIRATORY FAILURE WITH HYPOXIA Physical Exam Vital Signs: Temp Pulse Resp BP Pulse Ox 98.6 F 83 16 107/71 94 11/29/18 08:00 11/29/18 08:00 11/29/18 08:00 11/29/18 08:00 11/29/18 08:00 Intake & Output 11/28/18 11/29/18 11/30/18 06:59 06:59 06:59 Intake Total 2717 2320 71 Output Total 3723 5425 35 Balance -1008 -115 36 Weight 138.3 kg 138.6 kg General appearance: PRESENT: no acute distress, disheveled, morbidly obese. ABSENT: cooperative Head exam: PRESENT: atraumatic, normocephalic Eye exam: PRESENT: conjunctiva pale. ABSENT: nystagmus, periorbital swelling Mouth exam: PRESENT: dry mucosa, neck supple, tongue midline, other - ET tube Neck exam: ABSENT: carotid bruit, full ROM, JVD, lymphadenopathy, meningismus, tenderness, thyromegaly, tracheal deviation, tracheostomy, other Respiratory exam: PRESENT: decreased breath sounds, prolonged expiratory phas, rales, rhonchi, symmetrical, unlabored. ABSENT: retraction, stridor, tachypnea Cardiovascular exam: PRESENT: RRR, +S1, +S2 Pulses: PRESENT: normal radial pulses GI/Abdominal exam: PRESENT: firm, hernia. ABSENT: tenderness Gentrourinary exam: PRESENT: indwelling catheter Extremities exam: PRESENT: +1 edema. ABSENT: calf tenderness, clubbing, joint swelling Musculoskeletal exam: ABSENT: ambulatory, deformity, dislocation Neurological exam: ABSENT: awake Skin exam: PRESENT: dry, warm Results Laboratory Results: 11/29/18 03:54 11/29/18 03:54 11/28/18 11/29/18 11/29/18 12:50 03:13 03:54 WBC 5.6 RBC 4.48 Hgb 11.1 L Hct 34.8 L MCV 78 L MCH 24.7 L MCHC 31.9 L RDW 20.7 H Plt Count 124 L Seg Neutrophils % 61.8 Lymphocytes % 26.7 Monocytes % 9.1 Eosinophils % 1.9 Basophils % 0.5 Absolute Neutrophils 3.4 Absolute Lymphocytes 1.5 Absolute Monocytes 0.5 Absolute Eosinophils 0.1 Absolute Basophils 0.0 Carbonic Acid 1.26 1.27 HCO3/H2CO3 Ratio 28:1 26:1 ABG pH 7.56 H 7.52 H ABG pCO2 41.8 42.1 ABG pO2 61.1 L 67.1 L ABG HCO3 36.3 H 33.8 H ABG O2 Saturation 94.1 95.0 ABG Base Excess 12.8 10.0 FiO2 60% 70% Sodium Potassium Chloride Carbon Dioxide Anion Gap BUN Creatinine Est GFR ( Amer) Est GFR (Non-Af Amer) Glucose Calcium Magnesium Total Bilirubin AST Alkaline Phosphatase Total Protein Albumin 11/29/18 03:54 WBC RBC Hgb Hct MCV MCH MCHC RDW Plt Count Seg Neutrophils % Lymphocytes % Monocytes % Eosinophils % Basophils % Absolute Neutrophils Absolute Lymphocytes Absolute Monocytes Absolute Eosinophils Absolute Basophils Carbonic Acid HCO3/H2CO3 Ratio ABG pH ABG pCO2 ABG pO2 ABG HCO3 ABG O2 Saturation ABG Base Excess FiO2 Sodium 139.1 Potassium 3.6 Chloride 96 L Carbon Dioxide 31 H Anion Gap 12 BUN 11 Creatinine 1.73 H Est GFR ( Amer) 40 L Est GFR (Non-Af Amer) 33 L Glucose 86 Calcium 8.0 L Magnesium 1.9 Total Bilirubin 4.5 H AST 28 Alkaline Phosphatase 203 H Total Protein 6.9 Albumin 3.2 L 11/25/18 11/25/18 11/25/18 01:58 07:39 07:39 Creatine Kinase 50 CK-MB (CK-2) 0.53 Troponin I < 0.012 < 0.012 NT-Pro-B Natriuret Pep 766 H 11/25/18 11/25/18 11/25/18 12:03 12:03 18:17 Creatine Kinase 37 29 L CK-MB (CK-2) 0.37 Troponin I < 0.012 NT-Pro-B Natriuret Pep 11/25/18 11/26/18 18:17 03:32 Creatine Kinase CK-MB (CK-2) < 0.22 Troponin I < 0.012 NT-Pro-B Natriuret Pep 490 H Impressions: Abdomen Ultrasound 11/25/18 01:12 IMPRESSION: No free fluid identified within the upper quadrants. Evaluation of the lower quadrants was limited due to patient positioning as per the technologist. Abdomen/Pelvis CT 11/25/18 03:36 IMPRESSION: 1. Endotracheal tube with tip in the right mainstem bronchus. Recommend repositioning. 2. Bilateral dependent airspace opacities may be related to atelectasis. Developing pneumonic process or pneumonitis could produce the same appearance. 3. Enlarged right axillary lymph nodes as well as a 2.7 cm inferior right breast nodule. These may be reactive however other etiology not excluded. Correlation with right breast/axillary ultrasound and possible mammography recommended. 4. Body wall anasarca. 5. Small amount of ascites. 6. Hepatic steatosis. 7. Cardiomegaly. This exam was performed according to our departmental dose-optimization program, which includes automated exposure control, adjustment of the mA and/or kV according to patient size and/or use of iterative reconstruction technique. Chest CT 11/27/18 00:00 IMPRESSION: The endotracheal tube remains in low position. The tip of the tube is 1 cm above the kirill. Small pleural effusions. Airspace disease in both lower lobes and in the right middle lobe. Atelectasis versus pneumonia. Cardiomegaly. No adam pulmonary edema. Head CT 11/27/18 00:00 IMPRESSION: Sinus disease. No acute intracranial imaging findings. EVIDENCE OF ACUTE STROKE: NO. KUB X-Ray 11/28/18 00:00 IMPRESSION: Nasoenteric tube side port overlies GE junction. Consider advan cing 5 cm. Chest X-Ray 11/29/18 06:00 IMPRESSION: Low lung volumes with stable patchy bibasilar opacities, likely atelectasis. Stable support lines and tubes. Assessment & Plan - Diagnosis (1) Acute respiratory failure with hypoxia Is this a current diagnosis for this admission?: Yes Plan: Currently elevated FiO2 requirements and elevated minute ventilation to maintain acceptable ABG (2) CHF (congestive heart failure) Is this a current diagnosis for this admission?: Yes Plan: Generalized anasarca (3) Cellulitis of both lower extremities Is this a current diagnosis for this admission?: Yes Plan: Cephalosporin or clindamycin (4) Pneumonia Qualifiers: Pneumonia type: due to unspecified organism Laterality: bilateral Lung location: lower lobe of lung Qualified Code(s): J18.1 - Lobar pneumonia, unspecified organism Is this a current diagnosis for this admission?: Yes Plan: No positive cultures thus far (5) Morbid obesity with BMI of 40.0-44.9, adult Is this a current diagnosis for this admission?: Yes Plan: When stable consider nutritional consult (6) Pulmonary edema Qualifiers: Chronicity: acute Qualified Code(s): J81.0 - Acute pulmonary edema Is this a current diagnosis for this admission?: Yes Plan: Diuresis (7) Tobacco dependence Is this a current diagnosis for this admission?: Yes Plan: Transdermal nicotine - Time Total Critical Time (Minutes): 40
--- NOTE | 2018-12-04 12:00 | PDOC PROGRESS REPORT ---
Subjective Progress Note for:: 11/30/18 Subjective:: Sedated and intubated Reason For Visit: ACUTE RESPIRATORY FAILURE WITH HYPOXIA Physical Exam Vital Signs: Temp Pulse Resp BP Pulse Ox 98.6 F 81 16 119/84 95 11/30/18 08:00 11/30/18 08:00 11/30/18 08:00 11/30/18 08:00 11/30/18 08:00 Intake & Output 11/29/18 11/30/18 12/01/18 06:59 06:59 06:59 Intake Total 2420 1864 100 Output Total 2435 2130 500 Balance -15 -578 -400 Weight 138.6 kg 137.6 kg General appearance: PRESENT: no acute distress, disheveled, morbidly obese. ABSENT: cooperative Head exam: PRESENT: atraumatic, normocephalic Eye exam: PRESENT: conjunctiva pale. ABSENT: nystagmus, periorbital swelling Mouth exam: PRESENT: dry mucosa, neck supple, tongue midline, other - ET tube Neck exam: ABSENT: carotid bruit, full ROM, JVD, lymphadenopathy, meningismus, tenderness, thyromegaly, tracheal deviation, tracheostomy, other Respiratory exam: PRESENT: decreased breath sounds, prolonged expiratory phas, rales, rhonchi, symmetrical, unlabored. ABSENT: retraction, stridor, tachypnea Cardiovascular exam: PRESENT: RRR, +S1, +S2 Pulses: PRESENT: normal radial pulses GI/Abdominal exam: PRESENT: diminished bowel sounds, firm. ABSENT: mass, tenderness Gentrourinary exam: PRESENT: indwelling catheter Extremities exam: PRESENT: +1 edema. ABSENT: calf tenderness, clubbing, joint swelling, pedal edema, tenderness Musculoskeletal exam: ABSENT: ambulatory, deformity, dislocation Neurological exam: ABSENT: awake Skin exam: PRESENT: dry, warm Results Laboratory Results: 11/30/18 04:10 11/30/18 04:10 11/29/18 11/29/18 11/30/18 03:54 10:50 04:10 WBC RBC Hgb Hct MCV MCH MCHC RDW Plt Count Seg Neutrophils % Lymphocytes % Monocytes % Eosinophils % Basophils % Absolute Neutrophils Absolute Lymphocytes Absolute Monocytes Absolute Eosinophils Absolute Basophils Carbonic Acid HCO3/H2CO3 Ratio ABG pH ABG pCO2 ABG pO2 ABG HCO3 ABG O2 Saturation ABG Base Excess FiO2 Sodium 140.3 Potassium 3.7 Chloride 98 Carbon Dioxide 31 H Anion Gap 11 BUN 14 Creatinine 1.61 H Est GFR ( Amer) 44 L Est GFR (Non-Af Amer) 36 L Glucose 73 L Lactic Acid 0.9 Calcium 8.7 Phosphorus 5.6 H Magnesium 2.1 Ammonia Triglycerides 241 H 11/30/18 11/30/18 11/30/18 04:10 04:10 04:20 WBC 5.0 RBC 4.60 Hgb 11.3 L Hct 36.0 MCV 78 L MCH 24.6 L MCHC 31.4 L RDW 20.6 H Plt Count 118 L Seg Neutrophils % 63.5 Lymphocytes % 24.4 Monocytes % 9.2 Eosinophils % 2.3 Basophils % 0.6 Absolute Neutrophils 3.2 Absolute Lymphocytes 1.2 Absolute Monocytes 0.5 Absolute Eosinophils 0.1 Absolute Basophils 0.0 Carbonic Acid 1.38 H HCO3/H2CO3 Ratio 23:1 ABG pH 7.47 H ABG pCO2 45.9 H ABG pO2 67.5 L ABG HCO3 33.0 H ABG O2 Saturation 94.4 ABG Base Excess 8.3 FiO2 55% Sodium Potassium Chloride Carbon Dioxide Anion Gap BUN Creatinine Est GFR ( Amer) Est GFR (Non-Af Amer) Glucose Lactic Acid Calcium Phosphorus Magnesium Ammonia 37.4 H Triglycerides 11/25/18 01:58 Blood Blood Culture - Final NO GROWTH IN 5 DAYS 11/25/18 02:02 Blood Blood Culture - Final NO GROWTH IN 5 DAYS 11/25/18 11/25/18 11/25/18 01:58 07:39 07:39 Creatine Kinase 50 CK-MB (CK-2) 0.53 Troponin I < 0.012 < 0.012 NT-Pro-B Natriuret Pep 766 H 11/25/18 11/25/18 11/25/18 12:03 12:03 18:17 Creatine Kinase 37 29 L CK-MB (CK-2) 0.37 Troponin I < 0.012 NT-Pro-B Natriuret Pep 11/25/18 11/26/18 18:17 03:32 Creatine Kinase CK-MB (CK-2) < 0.22 Troponin I < 0.012 NT-Pro-B Natriuret Pep 490 H Impressions: Abdomen Ultrasound 11/25/18 01:12 IMPRESSION: No free fluid identified within the upper quadrants. Evaluation of the lower quadrants was limited due to patient positioning as per the technologist. Abdomen/Pelvis CT 11/25/18 03:36 IMPRESSION: 1. Endotracheal tube with tip in the right mainstem bronchus. Recommend repositioning. 2. Bilateral dependent airspace opacities may be related to atelectasis. Developing pneumonic process or pneumonitis could produce the same appearance. 3. Enlarged right axillary lymph nodes as well as a 2.7 cm inferior right breast nodule. These may be reactive however other etiology not excluded. Correlation with right breast/axillary ultrasound and possible mammography recommended. 4. Body wall anasarca. 5. Small amount of ascites. 6. Hepatic steatosis. 7. Cardiomegaly. This exam was performed according to our departmental dose-optimization program, which includes automated exposure control, adjustment of the mA and/or kV according to patient size and/or use of iterative reconstruction technique. Chest CT 11/27/18 00:00 IMPRESSION: The endotracheal tube remains in low position. The tip of the tube is 1 cm above the kirill. Small pleural effusions. Airspace disease in both lower lobes and in the right middle lobe. Atelectasis versus pneumonia. Cardiomegaly. No adam pulmonary edema. Head CT 11/27/18 00:00 IMPRESSION: Sinus disease. No acute intracranial imaging findings. EVIDENCE OF ACUTE STROKE: NO. KUB X-Ray 11/28/18 00:00 IMPRESSION: Nasoenteric tube side port overlies GE junction. Consider advancing 5 cm. Assessment & Plan - Diagnosis (1) Acute respiratory failure with hypoxia Is this a current diagnosis for this admission?: Yes Plan: Currently elevated FiO2 requirements and elevated minute ventilation to maintain acceptable ABG (2) CHF (congestive heart failure) Is this a current diagnosis for this admission?: Yes Plan: Generalized anasarca (3) Cellulitis of both lower extremities Is this a current diagnosis for this admission?: Yes Plan: Cephalosporin or clindamycin (4) Anasarca Is this a current diagnosis for this admission?: Yes Plan: Lasix drip vs pulse dose (5) Morbid obesity with BMI of 40.0-44.9, adult Is this a current diagnosis for this admission?: Yes Plan: When stable consider nutritional consult (6) Tobacco dependence Is this a current diagnosis for this admission?: Yes Plan: Transdermal nicotine - Time Total Critical Time (Minutes): 40
--- NOTE | 2018-12-04 12:03 | PDOC PROGRESS REPORT ---
Subjective Progress Note for:: 12/01/18 Subjective:: Intubated and sedated Reason For Visit: ACUTE RESPIRATORY FAILURE WITH HYPOXIA Physical Exam Vital Signs: Temp Pulse Resp BP Pulse Ox 98.4 F 76 16 125/84 94 12/01/18 07:46 12/01/18 08:00 12/01/18 07:46 12/01/18 07:46 12/01/18 07:46 Intake & Output 11/30/18 12/01/18 12/02/18 06:59 06:59 06:59 Intake Total 1862 3488 1273 Output Total 2137 3057 219 Balance -100 -7030 676 Weight 137.6 kg 134.4 kg General appearance: PRESENT: disheveled, morbidly obese. ABSENT: no acute distress, cooperative Head exam: PRESENT: atraumatic, normocephalic Eye exam: PRESENT: conjunctiva pale. ABSENT: nystagmus, periorbital swelling, scleral icterus Mouth exam: PRESENT: dry mucosa, neck supple, tongue midline, other - ET tube Neck exam: ABSENT: carotid bruit, full ROM, JVD, lymphadenopathy, meningismus, tenderness, thyromegaly, tracheal deviation, tracheostomy, other Respiratory exam: PRESENT: decreased breath sounds, prolonged expiratory phas, rales, rhonchi, symmetrical, unlabored. ABSENT: retraction, stridor, tachypnea Cardiovascular exam: PRESENT: RRR, +S1, +S2 Pulses: PRESENT: normal radial pulses GI/Abdominal exam: PRESENT: diminished bowel sounds, firm, hernia. ABSENT: mass Gentrourinary exam: PRESENT: indwelling catheter Extremities exam: PRESENT: +1 edema. ABSENT: calf tenderness, clubbing, joint swelling Musculoskeletal exam: ABSENT: ambulatory, deformity, dislocation Neurological exam: ABSENT: awake Skin exam: PRESENT: dry, warm Results Laboratory Results: 12/01/18 03:47 12/01/18 03:47 12/01/18 12/01/18 12/01/18 03:13 03:47 03:47 WBC 5.2 RBC 4.55 Hgb 11.3 L Hct 36.2 MCV 79 L MCH 24.9 L MCHC 31.3 L RDW 20.4 H Plt Count 151 Seg Neutrophils % 60.2 Lymphocytes % 25.8 Monocytes % 10.1 Eosinophils % 2.8 Basophils % 1.1 Absolute Neutrophils 3.1 Absolute Lymphocytes 1.3 Absolute Monocytes 0.5 Absolute Eosinophils 0.1 Absolute Basophils 0.1 Carbonic Acid 1.35 HCO3/H2CO3 Ratio 24:1 ABG pH 7.48 H ABG pCO2 44.8 ABG pO2 65.1 L ABG HCO3 32.7 H ABG O2 Saturation 94.0 ABG Base Excess 8.2 FiO2 55% Sodium 141.3 Potassium 3.3 L Chloride 97 L Carbon Dioxide 31 H Anion Gap 13 BUN 15 Creatinine 1.65 H Est GFR ( Amer) 43 L Est GFR (Non-Af Amer) 35 L Glucose 74 L Calcium 9.2 Phosphorus 5.8 H Magnesium 2.0 Albumin 3.6 11/25/18 11/25/18 11/25/18 01:58 07:39 07:39 Creatine Kinase 50 CK-MB (CK-2) 0.53 Troponin I < 0.012 < 0.012 NT-Pro-B Natriuret Pep 766 H 11/25/18 11/25/18 11/25/18 12:03 12:03 18:17 Creatine Kinase 37 29 L CK-MB (CK-2) 0.37 Troponin I < 0.012 NT-Pro-B Natriuret Pep 11/25/18 11/26/18 18:17 03:32 Creatine Kinase CK-MB (CK-2) < 0.22 Troponin I < 0.012 NT-Pro-B Natriuret Pep 490 H Impressions: Abdomen Ultrasound 11/25/18 01:12 IMPRESSION: No free fluid identified within the upper quadrants. Evaluation of the lower quadrants was limited due to patient positioning as per the technologist. Abdomen/Pelvis CT 11/25/18 03:36 IMPRESSION: 1. Endotracheal tube with tip in the right mainstem bronchus. Recommend repositioning. 2. Bilateral dependent airspace opacities may be related to atelectasis. Developing pneumonic process or pneumonitis could produce the same appearance. 3. Enlarged right axillary lymph nodes as well as a 2.7 cm inferior right breast nodule. These may be reactive however other etiology not excluded. Correlation with right breast/axillary ultrasound and possible mammography recommended. 4. Body wall anasarca. 5. Small amount of ascites. 6. Hepatic steatosis. 7. Cardiomegaly. This exam was performed according to our departmental dose-optimization program, which includes automated exposure control, adjustment of the mA and/or kV according to patient size and/or use of iterative reconstruction technique. Chest CT 11/27/18 00:00 IMPRESSION: The endotracheal tube remains in low position. The tip of the tube is 1 cm above the kirill. Small pleural effusions. Airspace disease in both lower lobes and in the right middle lobe. Atelectasis versus pneumonia. Cardiomegaly. No adam pulmonary edema. Head CT 11/27/18 00:00 IMPRESSION: Sinus disease. No acute intracranial imaging findings. EVIDENCE OF ACUTE STROKE: NO. Chest X-Ray 12/01/18 00:00 IMPRESSION: NO CHANGE IN APPEARANCE OF THE CHEST. KUB X-Ray 12/01/18 00:00 IMPRESSION: NO RADIOGRAPHIC EVIDENCE FOR ACUTE ABDOMINAL DISEASE. Assessment & Plan - Diagnosis (1) Acute respiratory failure with hypoxia Is this a current diagnosis for this admission?: Yes Plan: Currently elevated FiO2 requirements and elevated minute ventilation to maintain acceptable ABG (2) CHF (congestive heart failure) Is this a current diagnosis for this admission?: Yes Plan: Lasix drip appears to be working (3) Cellulitis of both lower extremities Is this a current diagnosis for this admission?: Yes Plan: Cephalosporin or clindamycin (4) Anasarca Is this a current diagnosis for this admission?: Yes Plan: Improving (5) Morbid obesity with BMI of 40.0-44.9, adult Is this a current diagnosis for this admission?: Yes Plan: When stable consider nutritional consult (6) Tobacco dependence Is this a current diagnosis for this admission?: Yes Plan: Transdermal nicotine - Time Total Critical Time (Minutes): 40
--- NOTE | 2018-12-04 12:05 | PDOC PROGRESS REPORT ---
Subjective Progress Note for:: 12/02/18 Subjective:: Intubated and sedated Reason For Visit: ACUTE RESPIRATORY FAILURE WITH HYPOXIA Physical Exam Vital Signs: Temp Pulse Resp BP Pulse Ox 98.1 F 68 16 122/81 93 12/03/18 12:00 12/03/18 10:00 12/03/18 12:00 12/03/18 11:56 12/03/18 12:00 Intake & Output 12/02/18 12/03/18 12/04/18 06:59 06:59 06:59 Intake Total 2535 2397 300 Output Total 9880 7770 600 [facility] -7345 -5373 -300 Weight 126.4 kg 120.2 kg General appearance: PRESENT: no acute distress, disheveled, morbidly obese. ABSENT: cooperative Head exam: PRESENT: atraumatic, normocephalic Eye exam: PRESENT: conjunctiva pale. ABSENT: nystagmus, periorbital swelling, scleral icterus Mouth exam: PRESENT: dry mucosa, neck supple, tongue midline, other - ET tube Neck exam: ABSENT: carotid bruit, full ROM, JVD, lymphadenopathy, meningismus, tenderness, thyromegaly, tracheal deviation, tracheostomy, other Respiratory exam: PRESENT: decreased breath sounds, prolonged expiratory phas, rales, rhonchi, symmetrical, unlabored. ABSENT: retraction, stridor, tachypnea Cardiovascular exam: PRESENT: RRR, +S1, +S2 Pulses: PRESENT: normal radial pulses GI/Abdominal exam: PRESENT: diminished bowel sounds, firm, hernia. ABSENT: mass Gentrourinary exam: PRESENT: indwelling catheter Extremities exam: PRESENT: +1 edema. ABSENT: calf tenderness, clubbing, joint swelling Musculoskeletal exam: ABSENT: ambulatory, deformity, dislocation Neurological exam: ABSENT: awake Skin exam: PRESENT: dry, warm Results Laboratory Results: 12/03/18 03:33 12/03/18 03:33 12/02/18 12/03/18 12/03/18 15:01 03:33 03:33 WBC 5.2 RBC 4.64 Hgb 11.7 L Hct 36.4 MCV 79 L MCH 25.1 L MCHC 32.0 RDW 20.6 H Plt Count 203 Seg Neutrophils % 59.7 Lymphocytes % 28.2 Monocytes % 10.0 Eosinophils % 0.6 Basophils % 1.5 Absolute Neutrophils 3.1 Absolute Lymphocytes 1.5 Absolute Monocytes 0.5 Absolute Eosinophils 0.0 Absolute Basophils 0.1 Carbonic Acid HCO3/H2CO3 Ratio ABG pH ABG pCO2 ABG pO2 ABG HCO3 ABG O2 Saturation ABG Base Excess FiO2 Sodium 138.9 Potassium 3.8 3.5 L Chloride 94 L Carbon Dioxide 29 Anion Gap 16 BUN 19 Creatinine 1.37 H Est GFR ( Amer) 53 L Est GFR (Non-Af Amer) 44 L Glucose 69 L Calcium 9.5 Magnesium 2.2 12/03/18 04:16 WBC RBC Hgb Hct MCV MCH MCHC RDW Plt Count Seg Neutrophils % Lymphocytes % Monocytes % Eosinophils % Basophils % Absolute Neutrophils Absolute Lymphocytes Absolute Monocytes Absolute Eosinophils Absolute Basophils Carbonic Acid 1.14 HCO3/H2CO3 Ratio 26:1 ABG pH 7.53 H ABG pCO2 37.8 ABG pO2 62.3 L ABG HCO3 30.6 H ABG O2 Saturation 94.1 ABG Base Excess 7.4 FiO2 55% Sodium Potassium Chloride Carbon Dioxide Anion Gap BUN Creatinine Est GFR ( Amer) Est GFR (Non-Af Amer) Glucose Calcium Magnesium 11/25/18 11/25/18 11/25/18 01:58 07:39 07:39 Creatine Kinase 50 CK-MB (CK-2) 0.53 Troponin I < 0.012 < 0.012 NT-Pro-B Natriuret Pep 766 H 11/25/18 11/25/18 11/25/18 12:03 12:03 18:17 Creatine Kinase 37 29 L CK-MB (CK-2) 0.37 Troponin I < 0.012 NT-Pro-B Natriuret Pep 11/25/18 11/26/18 18:17 03:32 Creatine Kinase CK-MB (CK-2) < 0.22 Troponin I < 0.012 NT-Pro-B Natriuret Pep 490 H Impressions: Abdomen Ultrasound 11/25/18 01:12 IMPRESSION: No free fluid identified within the upper quadrants. Evaluation of the lower quadrants was limited due to patient positioning as per the technologist. Abdomen/Pelvis CT 11/25/18 03:36 IMPRESSION: 1. Endotracheal tube with tip in the right mainstem bronchus. Recommend repositioning. 2. Bilateral dependent airspace opacities may be related to atelectasis. Developing pneumonic process or pneumonitis could produce the same appearance. 3. Enlarged right axillary lymph nodes as well as a 2.7 cm inferior right breast nodule. These may be reactive however other etiology not excluded. Correlation with right breast/axillary ultrasound and possible mammography recommended. 4. Body wall anasarca. 5. Small amount of ascites. 6. Hepatic steatosis. 7. Cardiomegaly. This exam was performed according to our departmental dose-optimization program, which includes automated exposure control, adjustment of the mA and/or kV according to patient size and/or use of iterative reconstruction technique. Chest CT 11/27/18 00:00 IMPRESSION: The endotracheal tube remains in low position. The tip of the tube is 1 cm above the kirill. Small pleural effusions. Airspace disease in both lower lobes and in the right middle lobe. Atelectasis versus pneumonia. Cardiomegaly. No adam pulmonary edema. Head CT 11/27/18 00:00 IMPRESSION: Sinus disease. No acute intracranial imaging findings. EVIDENCE OF ACUTE STROKE: NO. Chest X-Ray 12/03/18 06:00 IMPRESSION: Dense bilateral lobe pneumonia left greater than right with prob able effusions. No improvement. Vascular congestion. SUPPORT DEVICE(S) IN EXPECTED LOCATIONS. Assessment & Plan - Diagnosis (1) Acute respiratory failure with hypoxia Is this a current diagnosis for this admission?: Yes Plan: Currently elevated FiO2 requirements and elevated minute ventilation to maintain acceptable ABG (2) CHF (congestive heart failure) Is this a current diagnosis for this admission?: Yes Plan: Lasix drip appears to be working (3) Cellulitis of both lower extremities Is this a current diagnosis for this admission?: Yes Plan: Cephalosporin or clindamycin (4) Anasarca Is this a current diagnosis for this admission?: Yes Plan: Improving (5) Morbid obesity with BMI of 40.0-44.9, adult Is this a current diagnosis for this admission?: Yes Plan: When stable consider nutritional consult (6) Tobacco dependence Is this a current diagnosis for this admission?: Yes Plan: Transdermal nicotine - Time Total Critical Time (Minutes): 40
[2018-12-04] MEDS: NORMAL SALINE 250 ML with FUROSEMIDE 250 MG IV PRN ×4 (12:33→17:27)
--- NOTE | 2018-12-04 17:19 | PDOC PROGRESS REPORT ---
Subjective Progress Note for:: 12/04/18 - icu Subjective:: Saw patient on ICU this afternoon. She was slightly responsive with the sedation being down but then started to get a little more agitated. She did not for me once but then did not follow command after that. No overnight events reported to me with nursing. Reason For Visit: ACUTE RESPIRATORY FAILURE WITH HYPOXIA Physical Exam Vital Signs: Temp Pulse Resp BP Pulse Ox 99.5 F 93 17 115/78 91 L 12/04/18 14:23 12/04/18 15:41 12/04/18 15:41 12/04/18 14:23 12/04/18 15:41 Intake & Output 12/03/18 12/04/18 12/05/18 06:59 06:59 06:59 Intake Total 2397 2250 523 Output Total 7744 1690 1100 Balance -5373 -1310 -577 Weight 264 lb 15.93 oz 264 lb 15.93 oz Results Laboratory Results: 12/04/18 03:21 12/04/18 03:21 12/04/18 12/04/18 12/04/18 03:21 03:21 04:01 WBC 6.8 RBC 4.83 Hgb 12.2 Hct 38.0 MCV 79 L MCH 25.3 L MCHC 32.2 RDW 20.9 H Plt Count 254 Seg Neutrophils % 57.9 Lymphocytes % 31.2 Monocytes % 8.1 Eosinophils % 1.5 Basophils % 1.3 Absolute Neutrophils 3.9 Absolute Lymphocytes 2.1 Absolute Monocytes 0.6 Absolute Eosinophils 0.1 Absolute Basophils 0.1 Carbonic Acid 1.21 HCO3/H2CO3 Ratio 25:1 ABG pH 7.50 H ABG pCO2 40.2 ABG pO2 66.7 L ABG HCO3 30.3 H ABG O2 Saturation 94.6 ABG Base Excess 6.5 FiO2 40% Sodium 135.1 L Potassium 3.7 Chloride 91 L Carbon Dioxide 27 Anion Gap 17 BUN 22 H Creatinine 1.25 Est GFR ( Amer) 59 L Est GFR (Non-Af Amer) 48 L Glucose 73 L Calcium 9.5 Magnesium 2.1 11/25/18 11/25/18 11/25/18 01:58 07:39 07:39 Creatine Kinase 50 CK-MB (CK-2) 0.53 Troponin I < 0.012 < 0.012 NT-Pro-B Natriuret Pep 766 H 11/25/18 11/25/18 11/25/18 12:03 12:03 18:17 Creatine Kinase 37 29 L CK-MB (CK-2) 0.37 Troponin I < 0.012 NT-Pro-B Natriuret Pep 11/25/18 11/26/18 18:17 03:32 Creatine Kinase CK-MB (CK-2) < 0.22 Troponin I < 0.012 NT-Pro-B Natriuret Pep 490 H Impressions: Abdomen Ultrasound 11/25/18 01:12 IMPRESSION: No free fluid identified within the upper quadrants. Evaluation of the lower quadrants was limited due to patient positioning as per the technologist. Head CT 11/27/18 00:00 IMPRESSION: Sinus disease. No acute intracranial imaging findings. EVIDENCE OF ACUTE STROKE: NO. Abdomen/Pelvis CT 12/03/18 00:00 IMPRESSION: Bilateral lower lobe consolidation -atelectasis. No pneumothorax pleural effusion. Endotracheal tube is present with tip 1.3 cm above the level of the kirill. IMPRESSION: Small amount of pelvic free fluid. No bowel dilatation. Chest CT 12/03/18 00:00 IMPRESSION: Bilateral lower lobe consolidation -atelectasis. No pneumothorax pleural effusion. Endotracheal tube is present with tip 1.3 cm above the level of the kirill. IMPRESSION: Small amount of pelvic free fluid. No bowel dilatation. KUB X-Ray 12/03/18 12:02 IMPRESSION: NO RADIOGRAPHIC EVIDENCE FOR ACUTE ABDOMINAL DISEASE.NG tube tip overlies the pyloric region of the stomach. Chest X-Ray 12/04/18 06:00 IMPRESSION: Persistent left basilar opacification possibly atelectasis or infection. Small bilateral effusions, stable. Endotracheal tube tip overlies midthoracic trachea. Remaining lines and tubes as above. Assessment and Plan - Diagnosis (1) Sepsis Qualifiers: Sepsis type: sepsis due to unspecified organism Sepsis acute organ dysfunction status: unspecified Qualified Code(s): A41.9 - Sepsis, unspecified organism Is this a current diagnosis for this admission?: Yes (2) Acute respiratory failure with hypoxia Is this a current diagnosis for this admission?: Yes (3) Alcoholism Is this a current diagnosis for this admission?: Yes (4) Cocaine use Is this a current diagnosis for this admission?: Yes (5) Pneumonia Qualifiers: Pneumonia type: due to unspecified organism Laterality: bilateral Lung location: lower lobe of lung Qualified Code(s): J18.1 - Lobar pneumonia, unspecified organism Is this a current diagnosis for this admission?: Yes (6) Anasarca Is this a current diagnosis for this admission?: Yes (7) Anemia Qualifiers: Anemia type: iron deficiency Iron deficiency anemia type: inadequate dietary iron intake Qualified Code(s): D50.8 - Other iron deficiency anemias Is this a current diagnosis for this admission?: Yes (8) Hyperbilirubinemia Is this a current diagnosis for this admission?: Yes (9) Elevated LFTs Is this a current diagnosis for this admission?: Yes (10) Breast mass in female Is this a current diagnosis for this admission?: Yes - Time Time Spent with patient: 35 or more minutes Anticipated discharge: Acute Rehab - Inpatient Certification Based on my medical assessment, after consideration of the patient's comorbidities, presenting symptoms, or acuity I expect that the services needed warrant INPATIENT care.: Yes Medical Necessity: Failure to Improve With Outpatient Therapy, Significant Comorbidiites Make Outpatient Treatment Too Risky, Need Close Monitoring Due to Risk of Patient Decompensation, Need For IV Fluids, Need For Continuous Telemetry Monitoring, Risk of Complication if Not Cared For in Hospital - Plan Summary Plan Summary: 38-year-old female with a past medical history of morbid obesity, congestive heart failure, chronic alcohol use, tobacco dependence and illicit drug use, who was admitted to the ICU for respiratory failure and currently ventilator dependent. She has remained on the vent since admission and it has been difficult to wean her. Sepsis-most likely secondary to pneumonia, repeat chest x-ray today showing possible left lower lobe consolidation and pleural effusion. She has completed 7 days of IV Zosyn and has remained afebrile. All her cultures have remained negative so far. Acute respiratory failure with hypoxia-currently ventilator dependent, continue with ventilatory dependent protocols and avoid ventilator associated pneumonia-continue with daily sedation vacations and weaning trials. Unfortunately she has not been doing well on sedation vacation and not tolerating the decreased sedation as she becomes very tachypneic, tachycardic and agitated. Her respiratory failure may be secondary to her alcohol abuse and volume overload with anasarca. Continue with daily ABGs.ABG this morning shows pH of 7.5, PCO2 of 40, PO2 of 67, bicarb of 30 and O2 saturation of 94% on 40% FiO2. Dr. Ayers is consulted for vent management and I appreciate his assistance. She also had a CT of the chest without IV contrast on 12/03/2018 which showed some bilateral lower lobe consolidation and no other acute findings. I spoke with Dr. Ayers regarding this and he may consider doing a bronc in the next 24 to 48 hours. Cocaine positive-noted SHERRI-appreciate assistance from nephrology, Dr. Johnson-she has decreased her Lasix to 2 mg an hour as patient is having good urine output. Concerned about contraction alkalosis and hence Lasix has been decreased. Continue to replete potassium and monitor electrolytes. Anasarca-see plan above-she does have some decreased bowel sounds today-remains very hypoactive-I have consulted surgery for possible obstruction-Per Dr. Paul she most likely has a ileus and he does not recommend any surgical intervention. her bowel sounds have been decreased but today I did hear some on the left side. Due to concern for ileus versus partial obstruction I have gone ahead and consulted surgery-I appreciate help from Dr. Paul and I spoke to myself. He believes that this is most likely an ileus and we should continue with trickle feeds and not worry about continuous suction's. No intervention at this time. She did have a CT abdomen pelvis with oral contrast only which did not show any acute findings except for some small amount of free pelvic fluid. Elevated bilirubin and LFTs-upon initial arrival she did have CT abdomen pelvis with IV contrast, it did show hepatic steatosis, body wall anasarca, and small ascites. This is most likely secondary to to her history of alcohol abuse. It also showed a right breast mass measuring 2.7 x 2.1 cm which needs to be followed up after discharge. Breast mass on the right breast-this needs to be followed up carefully monitored. I do not know if this is acute or chronic. Most likely she will need a mammogram when she improves from her acute state. Alcohol abuse-noted DVT/GI prophylaxis-heparin subcu and Protonix IV Disposition-remain in the ICU for now until we can wean her off the ventilator and she is more stable-she may be a difficult wean-if we cannot wean her off the vent then she may need to be transferred to a high level of care for possible trach and PEG.
[2018-12-04] MEDS: PHARMACY COMMUNICATION ORDER MC SCH (17:41)
[2018-12-05] MEDS: IPRATROPIUM BROMIDE 0.02% NEB 0.5 MG/2.5 ML AMPUL NEB SCH ×3 (00:06→16:06)
[2018-12-05] MEDS: LEVALBUTEROL HCL NEB 1.25 MG/3 ML AMPUL NEB SCH ×3 (00:06→16:06)
[2018-12-05] MEDS: PROPOFOL 1,000 MG/100 ML INFUS..BTL IV PRN ×9 (01:19→23:02)
[2018-12-05 03:23] LABS: ARTERIAL BLOOD BASE EXCESS 5.6 mmol/L; ARTERIAL BLOOD H2CO3 1.13 mmol/L (1.05-1.35); ARTERIAL BLOOD HCO3 28.9 mmol/L (20-24); ARTERIAL BLOOD O2 SATURATION 96.2 % (94-98); ARTERIAL BLOOD PCO2 37.4 mmHg (35-45); ARTERIAL BLOOD PH 7.51 (7.35-7.45); ARTERIAL BLOOD PO2 75.2 mmHg (80-100); ARTERIAL BLOOD TOTAL CO2 30.1 mmol/L (21-25)
[2018-12-05 03:27] LABS: ARTERIAL BLOOD FIO2 50%
[2018-12-05 04:23] LABS: HEMATOCRIT 37.5 % (36.0-47.0); MEAN CORPUSCULAR HEMOGLOBIN 25.2 pg (27.0-33.4); MEAN CORPUSCULAR HGB CONC 31.9 g/dL (32.0-36.0); MEAN CORPUSCULAR VOLUME 79 fl (80-97); PLATELET COUNT 284 10^3/uL (150-450); RED BLOOD COUNT 4.75 10^6/uL (3.72-5.28); WHITE BLOOD COUNT 5.8 10^3/uL (4.0-10.5)
[2018-12-05 04:36] LABS: ANION GAP 17 (5-19); BLOOD UREA NITROGEN 20 mg/dL (7-20); CALCIUM 9.3 mg/dL (8.4-10.2); CARBON DIOXIDE 26 mmol/L (22-30); CHLORIDE 94 mmol/L (98-107); GLUCOSE 72 mg/dL (75-110); PHOSPHORUS 5.8 mg/dL (2.5-4.5); POTASSIUM 3.2 mmol/L (3.6-5.0)
[2018-12-05] MEDS: HEPARIN SOD (PORCINE) 5,000 UNIT/ML 1 ML VIAL SUBCUT SCH ×3 (05:04→21:54)
[2018-12-05 05:16] LABS: ABSOLUTE LYMPHOCYTES# (MANUAL) 1.5 10^3/uL (0.5-4.7); ABSOLUTE MONOCYTES # (MANUAL) 0.3 10^3/uL (0.1-1.4); BASOPHILS % (MANUAL) 1 % (0-2); EOSINOPHILS % (MANUAL) 0 % (0-6); LYMPHOCYTES % (MANUAL) 25 % (13-45); MONOCYTES % (MANUAL) 5 % (3-13); SEGMENTED NEUTROPHILS % (MAN) 68 % (42-78); TOTAL CELLS COUNTED 100
[2018-12-05] MEDS: POTASSIUM CHLORIDE 20 MEQ/50 ML RTU IV SCH ×2 (05:16→06:46)
[2018-12-05 05:18] LABS: ANISOCYTOSIS 3+; HYPOCHROMASIA 1+; OVALOCYTES 1+; POIKILOCYTOSIS 2+; TARGET CELLS SLIGHT; TEAR DROP CELLS 2+; TOXIC GRANULATION 1+; TOXIC VACUOLATION PRESENT
[2018-12-05 05:19] LABS: PLATELET COMMENT ADEQUATE
[2018-12-05] MEDS: CHLORPROMAZINE HCL INJ 25 MG/1 ML AMPULE IV PRN (07:40)
--- NOTE | 2018-12-05 08:30 | RADIOLOGY REPORT (SQ) ---
EXAM DESCRIPTION: CHEST SINGLE VIEW COMPLETED DATE/TIME: 12/05/2018 7:03 am REASON FOR STUDY: respfailure/pna COMPARISON: 12/04/2018 NUMBER OF VIEWS: One view. TECHNIQUE: Single frontal radiographic image of the chest acquired. LIMITATIONS: None. FINDINGS: LUNGS AND PLEURA: Stable appearance. MEDIASTINUM AND HILAR STRUCTURES: Stable heart size and mediastinal structures. HEART AND VASCULAR STRUCTURES: Stable appearance. SUPPORT DEVICES: Appropriate location without change. BONES: No acute findings. OTHER: No other significant finding. IMPRESSION: STABLE APPEARANCE OF THE CHEST. SUPPORT DEVICES UNCHANGED. TECHNICAL DOCUMENTATION: JOB ID: [id number]- All Rights Reserved Reading location - IP/workstation name: [email or web address]
[2018-12-05] MEDS ORDERED: MIDAZOLAM HCL 50 MG/100 ML RTUINJ ONE (08:53)
[2018-12-05] MEDS: BUDESONIDE NEB 0.5 MG/2 ML AMPUL NEB SCH ×2 (08:54→20:03)
--- NOTE | 2018-12-05 09:01 | PDOC PROGRESS REPORT ---
Subjective Progress Note for:: 12/05/18 Subjective:: Patient is still intubated and mildly sedated. This morning her eyes are closed and she does not seem to be is awake as yesterday but it might be depending on the amount of sedation she is getting. She is supposed to have bronchoscopy done today and hopefully will be in of so she can be extubated soon. He continues to pass a good amount of urine output with minimal Lasix drip now. Reason For Visit: ACUTE RESPIRATORY FAILURE WITH HYPOXIA Physical Exam Vital Signs: Temp Pulse Resp BP Pulse Ox 98.6 F 70 16 103/69 93 12/05/18 08:00 12/05/18 08:00 12/05/18 08:00 12/05/18 08:00 12/05/18 08:00 Intake & Output 12/04/18 12/05/18 12/06/18 06:59 06:59 06:59 Intake Total 2250 1169 50 Output Total 3560 2650 200 Balance -1310 -1481 -150 Weight 120.2 kg 117.3 kg Exam: General appearance: PRESENT: On BiPAP, well-developed, well-nourished Head exam: PRESENT: atraumatic, normocephalic Eye exam: PRESENT: Eyes currently close Neck exam: ABSENT: JVD Respiratory exam: PRESENT: Coarse breath sounds. ABSENT: crackles, rales, rhonchi, unlabored, wheezes Cardiovascular exam: PRESENT: Regular rate rhythm -+S1, +S2. ABSENT: diastolic murmur, systolic murmur GI/Abdominal exam: PRESENT: No bowel sounds, soft. Subcutaneous edema significantly decreased in her abdomen is definitely softer and palpation ABSE NT: guarding, mass, tenderness Extremities exam: Positive significantly improve anasarca with improvement of both upper and lower extremity edema Neurological exam: PRESENT: Still sedated Skin exam: PRESENT: dry, warm, Results Laboratory Results: 12/05/18 04:05 12/05/18 04:05 12/05/18 12/05/18 12/05/18 03:13 04:05 04:05 WBC 5.8 RBC 4.75 Hgb 12.0 Hct 37.5 MCV 79 L MCH 25.2 L MCHC 31.9 L RDW 21.0 H Plt Count 284 Seg Neutrophils % Not Reportable Lymphocytes % Not Reportable Monocytes % Not Reportable Eosinophils % Not Reportable Basophils % Not Reportable Absolute Neutrophils Not Reportable Absolute Lymphocytes Not Reportable Absolute Monocytes Not Reportable Absolute Eosinophils Not Reportable Absolute Basophils Not Reportable Carbonic Acid 1.13 HCO3/H2CO3 Ratio 25:1 ABG pH 7.51 H ABG pCO2 37.4 ABG pO2 75.2 L ABG HCO3 28.9 H ABG O2 Saturation 96.2 ABG Base Excess 5.6 FiO2 50% Sodium 136.6 L Potassium 3.2 L Chloride 94 L Carbon Dioxide 26 Anion Gap 17 BUN 20 Creatinine 0.95 Est GFR ( Amer) > 60 Est GFR (Non-Af Amer) > 60 Glucose 72 L Calcium 9.3 Phosphorus 5.8 H Magnesium 2.1 11/25/18 11/25/18 11/25/18 01:58 07:39 07:39 Creatine Kinase 50 CK-MB (CK-2) 0.53 Troponin I < 0.012 < 0.012 NT-Pro-B Natriuret Pep 766 H 11/25/18 11/25/18 11/25/18 12:03 12:03 18:17 Creatine Kinase 37 29 L CK-MB (CK-2) 0.37 Troponin I < 0.012 NT-Pro-B Natriuret Pep 11/25/18 11/26/18 18:17 03:32 Creatine Kinase CK-MB (CK-2) < 0.22 Troponin I < 0.012 NT-Pro-B Natriuret Pep 490 H Impressions: Abdomen Ultrasound 11/25/18 01:12 IMPRESSION: No free fluid identified within the upper quadrants. Evaluation of the lower quadrants was limited due to patient positioning as per the technologist. Head CT 11/27/18 00:00 IMPRESSION: Sinus disease. No acute intracranial imaging findings. EVIDENCE OF ACUTE STROKE: NO. Abdomen/Pelvis CT 12/03/18 00:00 IMPRESSION: Bilateral lower lobe consolidation -atelectasis. No pneumothorax pleural effusion. Endotracheal tube is present with tip 1.3 cm above the level of the kirill. IMPRESSION: Small amount of pelvic free fluid. No bowel dilatation. Chest CT 12/03/18 00:00 IMPRESSION: Bilateral lower lobe consolidation -atelectasis. No pneumothorax pleural effusion. Endotracheal tube is present with tip 1.3 cm above the level of the kirill. IMPRESSION: Small amount of pelvic free fluid. No bowel dilatation. KUB X-Ray 12/03/18 12:02 IMPRESSION: NO RADIOGRAPHIC EVIDENCE FOR ACUTE ABDOMINAL DISEASE.NG tube tip overlies the pyloric region of the stomach. Chest X-Ray 12/05/18 06:00 IMPRESSION: STABLE APPEARANCE OF THE CHEST. SUPPORT DEVICES UNCHANGED. Assessment & Plan - Diagnosis (1) Acute kidney injury Is this a current diagnosis for this admission?: Yes Plan: Patient is currently nonoliguric. Positive response to Lasix drip. Kidney function improving. Decrease Lasix drip to 2 mL/hour. No need of renal replacement therapy at this time yet. I will plan to change her Lasix drip to intermittent Lasix dosing in the next 24 to 48 hours. (2) Acute respiratory failure with hypoxia Is this a current diagnosis for this admission?: Yes Plan: Pulmonary on board. (3) Anasarca Is this a current diagnosis for this admission?: Yes Plan: Improving with Lasix drip. Patient has gone from admission weight of 140 kg to current weight of 117.3 kg. She is clinically improve with improvement of generalized edema. (4) Edema due to hypoalbuminemia Is this a current diagnosis for this admission?: Yes Plan: Albumin is improved to almost normal. (5) Alcohol dependence Qualifiers: Substance use status: unspecified alcohol-induced disorder Qualified Code(s): F10.29 - Alcohol dependence with unspecified alcohol-induced disorder Is this a current diagnosis for this admission?: Yes (6) Metabolic alkalosis Is this a current diagnosis for this admission?: Yes Plan: Continues to improve. (7) Hypokalemia Is this a current diagnosis for this admission?: Yes Plan: Replace per electrolyte protocol. (8) Ileus Is this a current diagnosis for this admission?: Yes (9) Cocaine use Is this a current diagnosis for this admission?: Yes (10) Morbid obesity with BMI of 45.0-49.9, adult Is this a current diagnosis for this admission?: Yes - Time Time with patient: 15-25 minutes
[2018-12-05] MEDS: MIDAZOLAM HCL 50 MG/100 ML RTUINJ IV PRN (09:02)
[2018-12-05] MEDS: MULTIVITAMIN ORAL LIQUID 60 ML NG SCH (10:25)
[2018-12-05] MEDS: THIAMINE HCL 100 MG in NORMAL SALINE 50 ML IV SCH (10:25)
[2018-12-05] MEDS: PANTOT AC/MIN OIL/PET HY-PHL OINT 50 GM TOP SCH ×2 (10:25→21:55)
[2018-12-05] MEDS: PANTOPRAZOLE SODIUM 40 MG VIAL IV SCH ×2 (10:26→21:54)
[2018-12-05] MEDS: AMINO AC/PROTEIN HYDR/WHEY PRO 11 GM/45 ML PKT NG SCH (10:26)
--- NOTE | 2018-12-05 11:40 | PDOC PROGRESS REPORT ---
Subjective Progress Note for:: 12/05/18 Subjective:: Patient remains intubated and sedated. She underwent bronchoscopy earlier today. Reason For Visit: ACUTE RESPIRATORY FAILURE WITH HYPOXIA Physical Exam Vital Signs: Temp Pulse Resp BP Pulse Ox 98.6 F 93 16 90/55 L 91 L 12/05/18 11:00 12/05/18 10:00 12/05/18 11:00 12/05/18 10:43 12/05/18 11:00 Intake & Output 12/04/18 12/05/18 12/06/18 06:59 06:59 06:59 Intake Total 2250 1169 152 Output Total 3560 2650 300 Balance -1310 -1481 -148 Weight 120.2 kg 117.3 kg General appearance: PRESENT: no acute distress, morbidly obese, other - Intubated and sedated. Orogastric tube in place. Head exam: PRESENT: atraumatic, normocephalic Mouth exam: PRESENT: other - Endotracheal tube and orogastric tube in place Respiratory exam: PRESENT: clear to auscultation linda - Anteriorly, symmetrical, unlabored. ABSENT: rales, rhonchi, tachypnea, wheezes Cardiovascular exam: PRESENT: RRR, +S1, +S2, systolic murmur - 1/6 GI/Abdominal exam: PRESENT: diminished bowel sounds, distended - Protuberant abdomen, firm, other - No tympany Rectal exam: PRESENT: deferred Gentrourinary exam: PRESENT: indwelling catheter Extremities exam: PRESENT: other - Pitting edema resolved. ABSENT: pedal edema Musculoskeletal exam: PRESENT: normal inspection Neurological exam: ABSENT: awake Psychiatric exam: ABSENT: agitated Focused psych exam: ABSENT: restlessness Skin exam: PRESENT: dry, normal color, warm. ABSENT: rash Results Laboratory Results: 12/05/18 04:05 12/05/18 12/05/18 12/05/18 03:13 04:05 04:05 WBC 5.8 RBC 4.75 Hgb 12.0 Hct 37.5 MCV 79 L MCH 25.2 L MCHC 31.9 L RDW 21.0 H Plt Count 284 Seg Neutrophils % Not Reportable Lymphocytes % Not Reportable Monocytes % Not Reportable Eosinophils % Not Reportable Basophils % Not Reportable Absolute Neutrophils Not Reportable Absolute Lymphocytes Not Reportable Absolute Monocytes Not Reportable Absolute Eosinophils Not Reportable Absolute Basophils Not Reportable Carbonic Acid 1.13 HCO3/H2CO3 Ratio 25:1 ABG pH 7.51 H ABG pCO2 37.4 ABG pO2 75.2 L ABG HCO3 28.9 H ABG O2 Saturation 96.2 ABG Base Excess 5.6 FiO2 50% Sodium 136.6 L Potassium 3.2 L Chloride 94 L Carbon Dioxide 26 Anion Gap 17 BUN 20 Creatinine 0.95 Est GFR ( Amer) > 60 Est GFR (Non-Af Amer) > 60 Glucose 72 L Calcium 9.3 Phosphorus 5.8 H Magnesium 2.1 11/25/18 11/25/18 11/25/18 01:58 07:39 07:39 Creatine Kinase 50 CK-MB (CK-2) 0.53 Troponin I < 0.012 < 0.012 NT-Pro-B Natriuret Pep 766 H 11/25/18 11/25/18 11/25/18 12:03 12:03 18:17 Creatine Kinase 37 29 L CK-MB (CK-2) 0.37 Troponin I < 0.012 NT-Pro-B Natriuret Pep 11/25/18 11/26/18 18:17 03:32 Creatine Kinase CK-MB (CK-2) < 0.22 Troponin I < 0.012 NT-Pro-B Natriuret Pep 490 H Impressions: Abdomen Ultrasound 11/25/18 01:12 IMPRESSION: No free fluid identified within the upper quadrants. Evaluation of the lower quadrants was limited due to patient positioning as per the technologist. Head CT 11/27/18 00:00 IMPRESSION: Sinus disease. No acute intracranial imaging findings. EVIDENCE OF ACUTE STROKE: NO. Abdomen/Pelvis CT 12/03/18 00:00 IMPRESSION: Bilateral lower lobe consolidation -atelectasis. No pneumothorax pleural effusion. Endotracheal tube is present with tip 1.3 cm above the level of the kirill. IMPRESSION: Small amount of pelvic free fluid. No bowel dilatation. Chest CT 12/03/18 00:00 IMPRESSION: Bilateral lower lobe consolidation -atelectasis. No pneumothorax pleural effusion. Endotracheal tube is present with tip 1.3 cm above the level of the kirill. IMPRESSION: Small amount of pelvic free fluid. No bowel dilatation. KUB X-Ray 12/03/18 12:02 IMPRESSION: NO RADIOGRAPHIC EVIDENCE FOR ACUTE ABDOMINAL DISEASE.NG tube tip overlies the pyloric region of the stomach. Chest X-Ray 12/05/18 06:00 IMPRESSION: STABLE APPEARANCE OF THE CHEST. SUPPORT DEVICES UNCHANGED. Assessment and Plan - Diagnosis (1) Sepsis Qualifiers: Sepsis type: sepsis due to unspecified organism Sepsis acute organ dysfunction status: unspecified Qualified Code(s): A41.9 - Sepsis, unspecified organism Is this a current diagnosis for this admission?: Yes Plan: 12/05/2018-sepsis most likely due to pneumonia. The patient did undergo bronchoscopy today and cultures are pending. She is no longer hypotensive. Antibiotic therapy is completed. Sepsis resolved (2) Acute respiratory failure with hypoxia Is this a current diagnosis for this admission?: Yes Plan: The patient remains intubated and sedated. Currently on SIMV with a tidal volume of 500, PEEP 10, respiratory rate 16 and FiO2 50%. The patient did undergo bronchoscopy today. Bronchial washings were sent for culture. We will continue to attempt weaning daily. (3) Alcoholism Is this a current diagnosis for this admission?: Yes Plan: 12/05/2018-the patient should be passed any window for withdrawal. Will need to encourage alcohol cessation with outpatient treatment if she survives this epis ode. (4) Acute kidney injury Is this a current diagnosis for this admission?: Yes Plan: 12/05/2018-the patient has exhibited a marked loss in weight with significant diuresis. She is net negative almost 10 L. She continues on a furosemide infusion. Dr. Johnson reports that she will likely change from a continuous furosemide infusion to intermittent dosing. Serum creatinine is down to 0.95. (5) Cocaine use Is this a current diagnosis for this admission?: Yes Plan: 12/05/2018-toxicology screen was positive for cocaine on admission. The patient is past the window of any withdrawal. Will need to encourage cessation with outpatient rehab. The patient has exhibited marked noncompliance in the past. (6) Pneumonia Qualifiers: Pneumonia type: due to unspecified organism Laterality: bilateral Lung location: lower lobe of lung Qualified Code(s): J18.1 - Lobar pneumonia, unspecified organism Is this a current diagnosis for this admission?: Yes Plan: 12/05/2018-bilateral airspace disease. The patient completed therapy with Zosyn. White count has normalized. Still trying to wean from ventilator. Bronchoscopy performed today. Bronchial washings sent for culture to assess for any remaining infection. (7) Anasarca Is this a current diagnosis for this admission?: Yes Plan: 12/05/2018-continued improvement with a net negative fluid loss of over 10 L and commensurate weight loss. The patient is currently on infusion of furosemide. Nephrology reports that they will be changing to scheduled dosing and discontinuing the infusion in the next 24 to 48 hours. (8) Anemia Qualifiers: Anemia type: iron deficiency Iron deficiency anemia type: inadequate dietary iron intake Qualified Code(s): D50.8 - Other iron deficiency anemias Is this a current diagnosis for this admission?: Yes Plan: 12/05/2018-hemoglobin today was 12.0. We will continue to monitor. No evidence of blood loss. (9) Hyperbilirubinemia Is this a current diagnosis for this admission?: Yes Plan: 12/05/2018-total bilirubin is down to 1.9. This is improved from a total bilirubin greater than 4.0 last week. Acute liver injury secondary to sepsis. Continue to monitor liver function. (10) Elevated LFTs Is this a current diagnosis for this admission?: Yes Plan: 12/05/2018-as noted above acute hepatic injury due to sepsis. Liver chemistries improving. Continue to monitor. (11) Breast mass in female Is this a current diagnosis for this admission?: Yes Plan: 12/05/2018-breast mass noted during imaging for pneumonia. The patient will need outpatient work-up. (12) CHF (congestive heart failure) Qualifiers: Heart failure type: diastolic Is this a current diagnosis for this admission?: Yes Plan: 11/17/2018-the patient had an echocardiogram earlier this year. Her ejection fraction was 65 and she exhibited 1/4 diastolic dysfunction. We will continue management as outlined above. (13) Morbid obesity with BMI of 40.0-44.9, adult Is this a current diagnosis for this admission?: Yes Plan: 12/05/2018-the patient is morbidly obese. Her BMI is 43. This could be causing morbid obesity hypoventilation making it difficult to wean her from the vent. She will benefit from weight loss. The noncompliance she has exhibited with regard to medications and her health in general makes it unlikely that she will comply with a weight loss diet. - Time Time Spent with patient: 15-24 minutes Medications reviewed and adjusted accordingly: Yes
[2018-12-05 11:48] LABS: ANION GAP 17 (5-19); BLOOD UREA NITROGEN 19 mg/dL (7-20); CALCIUM 9.3 mg/dL (8.4-10.2); CARBON DIOXIDE 25 mmol/L (22-30); CHLORIDE 96 mmol/L (98-107); GLUCOSE 72 mg/dL (75-110)
[2018-12-05 12:21] LABS: FLUID TYPE BRONCHIAL WASH
[2018-12-05 12:22] LABS: FLUID APPEARANCE CLOUDY; FLUID COLOR PINK; FLUID SOURCE LUNG; FLUID VISCOSITY LIQUID
[2018-12-05 12:35] LABS: ALKALINE PHOSPHATASE 183 U/L (38-126); ASPARTATE AMINO TRANSFERASE 64 U/L (14-36); BILIRUBIN,DIRECT 1.7 mg/dL (0.0-0.4); BILIRUBIN,TOTAL 1.9 mg/dL (0.2-1.3); TOTAL PROTEIN 8.8 g/dL (6.3-8.2)
[2018-12-05] MEDS: PHARMACY COMMUNICATION ORDER MC SCH (17:04)
[2018-12-05] MEDS: NORMAL SALINE 250 ML with FUROSEMIDE 250 MG IV PRN ×2 (17:05)
[2018-12-06] MEDS: IPRATROPIUM BROMIDE 0.02% NEB 0.5 MG/2.5 ML AMPUL NEB SCH ×3 (00:21→15:57)
[2018-12-06] MEDS: LEVALBUTEROL HCL NEB 1.25 MG/3 ML AMPUL NEB SCH ×3 (00:21→15:57)
[2018-12-06] MEDS: PROPOFOL 1,000 MG/100 ML INFUS..BTL IV PRN ×8 (02:02→22:13)
[2018-12-06 05:51] LABS: ANION GAP 18 (5-19); BLOOD UREA NITROGEN 15 mg/dL (7-20); CALCIUM 9.4 mg/dL (8.4-10.2); CARBON DIOXIDE 24 mmol/L (22-30); CHLORIDE 98 mmol/L (98-107); GLUCOSE 76 mg/dL (75-110); POTASSIUM 3.4 mmol/L (3.6-5.0)
[2018-12-06 05:53] LABS: ABSOLUTE EOSINOPHILS # (AUTO) 0.1 10^3/uL (0.0-0.6); ABSOLUTE LYMPHOCYTES (AUTO) 1.3 10^3/uL (0.5-4.7); ABSOLUTE MONOCYTES (AUTO) 0.4 10^3/uL (0.1-1.4); ABSOLUTE NEUT (AUTO) 5.1 10^3/uL (1.7-8.2); BASOPHILS % (AUTO) 0.5 % (0-2); EOSINOPHILS % (AUTO) 1.6 % (0-6); HEMATOCRIT 39.3 % (36.0-47.0); HEMOGLOBIN 12.3 g/dL (12.0-15.5); LYMPHOCYTES % (AUTO) 18.8 % (13-45); MEAN CORPUSCULAR HEMOGLOBIN 25.2 pg (27.0-33.4); MEAN CORPUSCULAR HGB CONC 31.4 g/dL (32.0-36.0); MEAN CORPUSCULAR VOLUME 80 fl (80-97); MONOCYTES % (AUTO) 5.9 % (3-13); PLATELET COUNT 336 10^3/uL (150-450); RED CELL DISTRIBUTION WIDTH 20.8 % (11.5-14.0); SEGMENTED NEUTROPHILS % (AUTO) 73.2 % (42-78); TOTAL CELLS COUNTED % (AUTO) 100 %
[2018-12-06] MEDS: HEPARIN SOD (PORCINE) 5,000 UNIT/ML 1 ML VIAL SUBCUT SCH ×3 (06:05→22:16)
[2018-12-06 06:17] LABS: ARTERIAL BLOOD BASE EXCESS 1.1 mmol/L; ARTERIAL BLOOD FIO2 50%; ARTERIAL BLOOD H2CO3 1.13 mmol/L (1.05-1.35); ARTERIAL BLOOD O2 SATURATION 94.9 % (94-98); ARTERIAL BLOOD PCO2 37.7 mmHg (35-45); ARTERIAL BLOOD PH 7.44 (7.35-7.45); ARTERIAL BLOOD TOTAL CO2 26.2 mmol/L (21-25)
[2018-12-06] MEDS: POTASSIUM CHLORIDE 20 MEQ/50 ML RTU IV SCH ×2 (06:52→08:12)
[2018-12-06] MEDS: BUDESONIDE NEB 0.5 MG/2 ML AMPUL NEB SCH ×2 (08:01→19:52)
--- NOTE | 2018-12-06 08:15 | RADIOLOGY REPORT (SQ) ---
EXAM DESCRIPTION: CHEST SINGLE VIEW COMPLETED DATE/TIME: 12/06/2018 6:33 am REASON FOR STUDY: pna/resp failure COMPARISON: 12/05/2018 EXAM PARAMETERS: NUMBER OF VIEWS: One view. TECHNIQUE: Single frontal radiographic view of the chest acquired. RADIATION DOSE: NA LIMITATIONS: None. FINDINGS: LUNGS AND PLEURA: Low lung volumes with patchy right mid lung and left basilar retrocardia c opacities. Small bilateral effusions. . No pneumothorax. MEDIASTINUM AND HILAR STRUCTURES: Stable. HEART AND VASCULAR STRUCTURES: Enlarged, stable. BONES: No acute findings. HARDWARE: Endotracheal tube tip overlies midthoracic trachea. Enteric tube tip overlies gastric body . OTHER: No other significant finding. IMPRESSION: Low lung volumes with persistent right mid lung and left basilar patchy opacities. Smal l stable bilateral effusions. Lines and tubes as above. TECHNICAL DOCUMENTATION: JOB ID: [id number] [employer]- All Rights Reserved Reading location - IP/workstation name: [email or web address]
[2018-12-06] MEDS: THIAMINE HCL 100 MG in NORMAL SALINE 50 ML IV SCH (09:14)
[2018-12-06] MEDS: MULTIVITAMIN ORAL LIQUID 60 ML NG SCH (09:15)
[2018-12-06] MEDS: PANTOT AC/MIN OIL/PET HY-PHL OINT 50 GM TOP SCH ×2 (09:16→22:17)
--- NOTE | 2018-12-06 10:50 | PDOC PROGRESS REPORT ---
Subjective Progress Note for:: 12/06/18 Subjective:: Patient still remains to be intubated but is trying to be went off. He still on sedation. She still makes adequate amount of urine output in her anasarca continues to improve. Reason For Visit: ACUTE RESPIRATORY FAILURE WITH HYPOXIA Physical Exam Vital Signs: Temp Pulse Resp BP Pulse Ox 98.4 F 71 27 H 105/68 92 12/06/18 10:00 12/06/18 08:00 12/06/18 10:00 12/06/18 09:24 12/06/18 10:00 Intake & Output 12/05/18 12/06/18 12/07/18 06:59 06:59 06:59 Intake Total 1169 1116 40 Output Total 2650 1575 100 Balance -1481 -459 -60 Weight 117.3 kg 117.1 kg Exam: General appearance: PRESENT: Still intubated and sedated Head exam: PRESENT: atraumatic, normocephalic Eye exam: PRESENT: Currently eyes are closed Neck exam: ABSENT: JVD Respiratory exam: PRESENT: Diminished breath sounds. ABSENT: crackles, rales, rhonchi, unlabored, wheezes Cardiovascular exam: PRESENT: Regular rate rhythm -+S1, +S2. ABSENT: diastolic murmur, systolic murmur GI/Abdominal exam: PRESENT: Hypoactive bowel sounds, soft. Significantly decreased subcutaneous edema ABSENT: guarding, mass, tenderness Extremities exam: Significantly improved upper and lower extremity edema Neurological exam: PRESENT: Sedated. Skin exam: PRESENT: dry, warm, Results Laboratory Results: 12/06/18 03:46 12/06/18 03:46 12/05/18 12/05/18 12/05/18 10:15 11:12 11:12 WBC RBC Hgb Hct MCV MCH MCHC RDW Plt Count Seg Neutrophils % Lymphocytes % Monocytes % Eosinophils % Basophils % Absolute Neutrophils Absolute Lymphocytes Absolute Monocytes Absolute Eosinophils Absolute Basophils Carbonic Acid HCO3/H2CO3 Ratio ABG pH ABG pCO2 ABG pO2 ABG HCO3 ABG O2 Saturation ABG Base Excess FiO2 Sodium 138.0 Potassium 4.0 Chloride 96 L Carbon Dioxide 25 Anion Gap 17 BUN 19 Creatinine 0.96 Est GFR ( Amer) > 60 Est GFR (Non-Af Amer) > 60 Glucose 72 L Calcium 9.3 Magnesium Total Bilirubin 1.9 H AST 64 H Alkaline Phosphatase 183 H Total Protein 8.8 H Albumin 4.0 Fluid Type BRONCHIAL WASH Fluid Source LUNG Fluid Color PINK Fluid Appearance CLOUDY Fluid Viscosity LIQUID Fluid WBC 204 Fluid RBC 1248 12/06/18 12/06/18 12/06/18 03:46 03:46 04:04 WBC 7.0 RBC 4.90 Hgb 12.3 Hct 39.3 MCV 80 MCH 25.2 L MCHC 31.4 L RDW 20.8 H Plt Count 336 Seg Neutrophils % 73.2 Lymphocytes % 18.8 Monocytes % 5.9 Eosinophils % 1.6 Basophils % 0.5 Absolute Neutrophils 5.1 Absolute Lymphocytes 1.3 Absolute Monocytes 0.4 Absolute Eosinophils 0.1 Absolute Basophils 0.0 Carbonic Acid 1.13 HCO3/H2CO3 Ratio 22:1 ABG pH 7.44 ABG pCO2 37.7 ABG pO2 71.0 L ABG HCO3 25.0 H ABG O2 Saturation 94.9 ABG Base Excess 1.1 FiO2 50% Sodium 139.8 Potassium 3.4 L Chloride 98 Carbon Dioxide 24 Anion Gap 18 BUN 15 Creatinine 0.84 Est GFR ( Amer) > 60 Est GFR (Non-Af Amer) > 60 Glucose 76 Calcium 9.4 Magnesium 2.0 Total Bilirubin AST Alkaline Phosphatase Total Protein Albumin Fluid Type Fluid Source Fluid Color Fluid Appearance Fluid Viscosity Fluid WBC Fluid RBC 11/25/18 11/25/18 11/25/18 01:58 07:39 07:39 Creatine Kinase 50 CK-MB (CK-2) 0.53 Troponin I < 0.012 < 0.012 NT-Pro-B Natriuret Pep 766 H 11/25/18 11/25/18 11/25/18 12:03 12:03 18:17 Creatine Kinase 37 29 L CK-MB (CK-2) 0.37 Troponin I < 0.012 NT-Pro-B Natriuret Pep 11/25/18 11/26/18 18:17 03:32 Creatine Kinase CK-MB (CK-2) < 0.22 Troponin I < 0.012 NT-Pro-B Natriuret Pep 490 H Impressions: Abdomen Ultrasound 11/25/18 01:12 IMPRESSION: No free fluid identified within the upper quadrants. Evaluation of the lower quadrants was limited due to patient positioning as per the technologist. Head CT 11/27/18 00:00 IMPRESSION: Sinus disease. No acute intracranial imaging findings. EVIDENCE OF ACUTE STROKE: NO. Abdomen/Pelvis CT 12/03/18 00:00 IMPRESSION: Bilateral lower lobe consolidation -atelectasis. No pneumothorax pleural effusion. Endotracheal tube is present with tip 1.3 cm above the level of the kirill. IMPRESSION: Small amount of pelvic free fluid. No bowel dilatation. Chest CT 12/03/18 00:00 IMPRESSION: Bilateral lower lobe consolidation -atelectasis. No pneumothorax pleural effusion. Endotracheal tube is present with tip 1.3 cm above the level of the kirill. IMPRESSION: Small amount of pelvic free fluid. No bowel dilatation. KUB X-Ray 12/03/18 12:02 IMPRESSION: NO RADIOGRAPHIC EVIDENCE FOR ACUTE ABDOMINAL DISEASE.NG tube tip overlies the pyloric region of the stomach. Chest X-Ray 12/06/18 06:00 IMPRESSION: Low lung volumes with persistent right mid lung and left basilar patchy opacities. Small stable bilateral effusions. Lines and tubes as above. Assessment & Plan - Diagnosis (1) Acute kidney injury Is this a current diagnosis for this admission?: Yes Plan: Resolved. Discontinue Lasix drip. Change to intermittent Lasix 40 mg IV every 12 hours. (2) Acute respiratory failure with hypoxia Is this a current diagnosis for this admission?: Yes Plan: Pulmonary on board. Still being weaned off mechanical ventilation. (3) Anasarca Is this a current diagnosis for this admission?: Yes Plan: Continues to improve. Patient has gone from admission weight of 140 kg to current weight of 117 kg. (4) Edema due to hypoalbuminemia Is this a current diagnosis for this admission?: Yes Plan: Albumin is improved to almost normal. (5) Metabolic alkalosis Is this a current diagnosis for this admission?: Yes Plan: Resolved. (6) Hypokalemia Is this a current diagnosis for this admission?: Yes Plan: Replace per electrolyte protocol. (7) Ileus Is this a current diagnosis for this admission?: Yes (8) Cocaine use Is this a current diagnosis for this admission?: Yes (9) Morbid obesity with BMI of 45.0-49.9, adult Is this a current diagnosis for this admission?: Yes - Time Time with patient: 15-25 minutes
--- NOTE | 2018-12-06 13:22 | PDOC PROGRESS REPORT ---
Subjective Progress Note for:: 12/06/18 Subjective:: Intubated and sedated Reason For Visit: ACUTE RESPIRATORY FAILURE WITH HYPOXIA Physical Exam Vital Signs: Temp Pulse Resp BP Pulse Ox 98.4 F 79 20 111/68 92 12/06/18 12:00 12/06/18 12:00 12/06/18 12:00 12/06/18 12:00 12/06/18 12:00 Intake & Output 12/05/18 12/06/18 12/07/18 06:59 06:59 06:59 Intake Total 1169 1116 276 Output Total 2650 1575 420 Balance -1481 -459 -144 Weight 117.3 kg 117.1 kg General appearance: PRESENT: no acute distress, morbidly obese, well-developed Head exam: PRESENT: atraumatic, normocephalic Ear exam: PRESENT: normal external ear exam. ABSENT: bleeding, drainage Respiratory exam: PRESENT: clear to auscultation linda - Anteriorly, symmetrical, unlabored. ABSENT: rales, rhonchi, tachypnea, wheezes Cardiovascular exam: PRESENT: RRR, +S1, +S2, systolic murmur - 2/6, other - Distant heart sounds GI/Abdominal exam: PRESENT: diminished bowel sounds, firm. ABSENT: tenderness Rectal exam: PRESENT: deferred Gentrourinary exam: ABSENT: indwelling catheter Extremities exam: ABSENT: joint swelling, pedal edema, tenderness Musculoskeletal exam: PRESENT: normal inspection, other - Significantly decreased edema. Wrinkled skin secondary to volume loss. Neurological exam: ABSENT: awake Psychiatric exam: ABSENT: agitated Focused psych exam: ABSENT: restlessness Skin exam: PRESENT: dry, normal color, warm. ABSENT: rash Results Laboratory Results: 12/06/18 03:46 12/06/18 03:46 12/06/18 12/06/18 12/06/18 03:46 03:46 04:04 WBC 7.0 RBC 4.90 Hgb 12.3 Hct 39.3 MCV 80 MCH 25.2 L MCHC 31.4 L RDW 20.8 H Plt Count 336 Seg Neutrophils % 73.2 Lymphocytes % 18.8 Monocytes % 5.9 Eosinophils % 1.6 Basophils % 0.5 Absolute Neutrophils 5.1 Absolute Lymphocytes 1.3 Absolute Monocytes 0.4 Absolute Eosinophils 0.1 Absolute Basophils 0.0 Carbonic Acid 1.13 HCO3/H2CO3 Ratio 22:1 ABG pH 7.44 ABG pCO2 37.7 ABG pO2 71.0 L ABG HCO3 25.0 H ABG O2 Saturation 94.9 ABG Base Excess 1.1 FiO2 50% Sodium 139.8 Potassium 3.4 L Chloride 98 Carbon Dioxide 24 Anion Gap 18 BUN 15 Creatinine 0.84 Est GFR ( Amer) > 60 Est GFR (Non-Af Amer) > 60 Glucose 76 Calcium 9.4 Magnesium 2.0 11/25/18 11/25/18 11/25/18 01:58 07:39 07:39 Creatine Kinase 50 CK-MB (CK-2) 0.53 Troponin I < 0.012 < 0.012 NT-Pro-B Natriuret Pep 766 H 11/25/18 11/25/18 11/25/18 12:03 12:03 18:17 Creatine Kinase 37 29 L CK-MB (CK-2) 0.37 Troponin I < 0.012 NT-Pro-B Natriuret Pep 11/25/18 11/26/18 18:17 03:32 Creatine Kinase CK-MB (CK-2) < 0.22 Troponin I < 0.012 NT-Pro-B Natriuret Pep 490 H Impressions: Abdomen Ultrasound 11/25/18 01:12 IMPRESSION: No free fluid identified within the upper quadrants. Evaluation of the lower quadrants was limited due to patient positioning as per the technologist. Head CT 11/27/18 00:00 IMPRESSION: Sinus disease. No acute intracranial imaging findings. EVIDENCE OF ACUTE STROKE: NO. Abdomen/Pelvis CT 12/03/18 00:00 IMPRESSION: Bilateral lower lobe consolidation -atelectasis. No pneumothorax pleural effusion. Endotracheal tube is present with tip 1.3 cm above the level of the kirill. IMPRESSION: Small amount of pelvic free fluid. No bowel dilatation. Chest CT 12/03/18 00:00 IMPRESSION: Bilateral lower lobe consolidation -atelectasis. No pneumothorax pleural effusion. Endotracheal tube is present with tip 1.3 cm above the level of the kirill. IMPRESSION: Small amount of pelvic free fluid. No bowel dilatation. KUB X-Ray 12/03/18 12:02 IMPRESSION: NO RADIOGRAPHIC EVIDENCE FOR ACUTE ABDOMINAL DISEASE.NG tube tip overlies the pyloric region of the stomach. Chest X-Ray 12/06/18 06:00 IMPRESSION: Low lung volumes with persistent right mid lung and left basilar patchy opacities. Small stable bilateral effusions. Lines and tubes as above. Assessment and Plan - Diagnosis (1) Sepsis Qualifiers: Sepsis type: sepsis due to unspecified organism Sepsis acute organ dysfunction status: unspecified Qualified Code(s): A41.9 - Sepsis, unspecified organism Is this a current diagnosis for this admission?: Yes Plan: 12/05/2018-sepsis most likely due to pneumonia. The patient did undergo bronchoscopy today and cultures are pending. She is no longer hypotensive. Antibiotic therapy is completed. Sepsis resolved 12/06/2018-resolved (2) Acute respiratory failure with hypoxia Is this a current diagnosis for this admission?: Yes Plan: 12/05/2018-the patient remains intubated and sedated. Currently on SIMV with a tidal volume of 500, PEEP 10, respiratory rate 16 and FiO2 50%. The patient did undergo bronchoscopy today. Bronchial washings were sent for culture. We will continue to attempt weaning daily. 12/06/2018-the patient remains intubated. Weaning trials are ongoing. The patient did undergo bronchoscopy yesterday. Bronchial washings are growing gram-negative bacilli. Her white blood cell count is normal and she is afe brile. It is possible that there is no occult infection inhibiting weaning. We should have a tentative identification tomorrow. I will then discuss with pulmonology a need to treat or not. We will otherwise continue pulmonary treatments. (3) Alcoholism Is this a current diagnosis for this admission?: Yes Plan: 12/05/2018-the patient should be passed any window for withdrawal. Will need to encourage alcohol cessation with outpatient treatment if she survives this episode. 12/06/2018-past the window of withdrawal. Would benefit from cessation and a support group post recovery (4) Acute kidney injury Is this a current diagnosis for this admission?: Yes Plan: 12/05/2018-the patient has exhibited a marked loss in weight with significant diuresis. She is net negative almost 10 L. She continues on a furosemide infusion. Dr. Johnson reports that she will likely change from a continuous furosemide infusion to intermittent dosing. Serum creatinine is down to 0.95. 12/06/2018-acute kidney injury has resolved. (5) Cocaine use Is this a current diagnosis for this admission?: Yes Plan: 12/05/2018-toxicology screen was positive for cocaine on admission. The patient is past the window of any withdrawal. Will need to encourage cessation with outpatient rehab. The patient has exhibited marked noncompliance in the past. 12/06/2018-try to encourage an addiction support program as an outpatient (6) Pneumonia Qualifiers: Pneumonia type: due to unspecified organism Laterality: bilateral Lung location: lower lobe of lung Qualified Code(s): J18.1 - Lobar pneumonia, unspecified organism Is this a current diagnosis for this admission?: Yes Plan: 12/05/2018-bilateral airspace disease. The patient completed therapy with Zosyn. White count has normalized. Still trying to wean from ventilator. Bronch oscopy performed today. Bronchial washings sent for culture to assess for any remaining infection. 12/06/2018-the patient did complete a course of Zosyn. Her white count remains normal however the bronchoscopy washings are growing gram-negative bacilli. I will await more information tomorrow and discuss with pulmonology. This may require antibiotic therapy and certainly could be causing slow weaning. (7) Anasarca Is this a current diagnosis for this admission?: Yes Plan: 12/05/2018-continued improvement with a net negative fluid loss of over 10 L and commensurate weight loss. The patient is currently on infusion of furosemide. Nephrology reports that they will be changing to scheduled dosing and discontinuing the infusion in the next 24 to 48 hours. 12/06/2018-significant improvement from admission. Dr. Johnson has stopped the furosemide infusion and the patient is now on 40 mg IV every 12 hours. We will continue to monitor electrolytes, blood pressure and renal function. We will try and avoid a net positive fluid balance. (8) Anemia Qualifiers: Anemia type: iron deficiency Iron deficiency anemia type: inadequate dietary iron intake Qualified Code(s): D50.8 - Other iron deficiency anemias Is this a current diagnosis for this admission?: Yes Plan: 12/05/2018-hemoglobin today was 12.0. We will continue to monitor. No evidence of blood loss. 12/06/2018-hemoglobin remains stable. Monitor for blood loss. (9) Hyperbilirubinemia Is this a current diagnosis for this admission?: Yes Plan: 12/05/2018-total bilirubin is down to 1.9. This is improved from a total bilirubin greater than 4.0 last week. Acute liver injury secondary to sepsis. Continue to monitor liver function. 12/05/2018-as noted above total bilirubin was down to 1.9. I will recheck liver chemistries in several days. (10) Elevated LFTs Is this a current diagnosis for this admission?: Yes Plan: 12/05/2018-as noted above acute hepatic injury due to sepsis. Liver chemistries improving. Continue to monitor. 12/06/2018-as noted above we will monitor liver chemistries every several days. Blood work continues to improve. (11) Breast mass in female Is this a current diagnosis for this admission?: Yes Plan: 12/05/2018-breast mass noted during imaging for pneumonia. The patient will need outpatient work-up. 12/06/2018-continue work-up as an outpatient (12) CHF (congestive heart failure) Qualifiers: Heart failure type: diastolic Is this a current diagnosis for this admission?: Yes Plan: 12/05/2018-the patient had an echocardiogram earlier this year. Her ejection fraction was 65 and she exhibited 1/4 diastolic dysfunction. We will continue management as outlined above. 12/06/2018-we will continue to monitor. With changes in medication will consider adding an LEONARDA inhibitor, angiotensin receptor tess and or Aldactone. Currently congestive heart failure is present but stable. We will begin to modify therapy as the patient recovers. (13) Morbid obesity with BMI of 40.0-44.9, adult Is this a current diagnosis for this admission?: Yes Plan: 12/05/2018-the patient is morbidly obese. Her BMI is 43. This could be causing morbid obesity hypoventilation making it difficult to wean her from the vent. She will benefit from weight loss. The noncompliance she has exhibited with regard to medications and her health in general makes it unlikely that she will comply with a weight loss diet. 12/06/2018-as above - Time Time Spent with patient: 15-24 minutes Medications reviewed and adjusted accordingly: Yes
[2018-12-06] MEDS: PHARMACY COMMUNICATION ORDER MC SCH (17:24)
[2018-12-06] MEDS: CHLORPROMAZINE HCL INJ 25 MG/1 ML AMPULE IV PRN (22:13)
[2018-12-06] MEDS: FUROSEMIDE INJ/PF 40 MG/4 ML SDV IV SCH (22:16)
[2018-12-07] MEDS: PROPOFOL 1,000 MG/100 ML INFUS..BTL IV PRN ×8 (00:16→21:19)
[2018-12-07] MEDS: LEVALBUTEROL HCL NEB 1.25 MG/3 ML AMPUL NEB SCH ×4 (00:21→23:59)
[2018-12-07] MEDS: IPRATROPIUM BROMIDE 0.02% NEB 0.5 MG/2.5 ML AMPUL NEB SCH ×4 (00:21→23:59)
[2018-12-07 03:30] LABS: ARTERIAL BLOOD BASE EXCESS 3.7 mmol/L; ARTERIAL BLOOD FIO2 45%; ARTERIAL BLOOD H2CO3 1.13 mmol/L (1.05-1.35); ARTERIAL BLOOD HCO3 27.3 mmol/L (20-24); ARTERIAL BLOOD O2 SATURATION 91.8 % (94-98); ARTERIAL BLOOD PCO2 37.7 mmHg (35-45); ARTERIAL BLOOD PH 7.48 (7.35-7.45); ARTERIAL BLOOD PO2 57.5 mmHg (80-100); ARTERIAL BLOOD TOTAL CO2 28.4 mmol/L (21-25)
[2018-12-07 04:24] LABS: ABSOLUTE BASOPHILS # (AUTO) 0.1 10^3/uL (0.0-0.2); ABSOLUTE EOSINOPHILS # (AUTO) 0.2 10^3/uL (0.0-0.6); ABSOLUTE LYMPHOCYTES (AUTO) 1.4 10^3/uL (0.5-4.7); ABSOLUTE MONOCYTES (AUTO) 0.4 10^3/uL (0.1-1.4); ABSOLUTE NEUT (AUTO) 4.8 10^3/uL (1.7-8.2); BASOPHILS % (AUTO) 0.9 % (0-2); EOSINOPHILS % (AUTO) 2.4 % (0-6); HEMATOCRIT 40.4 % (36.0-47.0); HEMOGLOBIN 12.6 g/dL (12.0-15.5); LYMPHOCYTES % (AUTO) 20.8 % (13-45); MEAN CORPUSCULAR HEMOGLOBIN 24.9 pg (27.0-33.4); MEAN CORPUSCULAR HGB CONC 31.2 g/dL (32.0-36.0); MEAN CORPUSCULAR VOLUME 80 fl (80-97); MONOCYTES % (AUTO) 6.1 % (3-13); PLATELET COUNT 393 10^3/uL (150-450); RED BLOOD COUNT 5.06 10^6/uL (3.72-5.28); SEGMENTED NEUTROPHILS % (AUTO) 69.8 % (42-78); TOTAL CELLS COUNTED % (AUTO) 100 %; WHITE BLOOD COUNT 6.8 10^3/uL (4.0-10.5)
[2018-12-07 04:45] LABS: ANION GAP 13 (5-19); BLOOD UREA NITROGEN 14 mg/dL (7-20); CALCIUM 9.6 mg/dL (8.4-10.2); CARBON DIOXIDE 28 mmol/L (22-30); CHLORIDE 99 mmol/L (98-107); GLUCOSE 82 mg/dL (75-110); PHOSPHORUS 4.8 mg/dL (2.5-4.5); POTASSIUM 3.2 mmol/L (3.6-5.0)
[2018-12-07] MEDS ORDERED: POTASSIUM CHLORIDE 20 MEQ PACKET NG ONE (05:30)
[2018-12-07] MEDS: HEPARIN SOD (PORCINE) 5,000 UNIT/ML 1 ML VIAL SUBCUT SCH ×3 (05:46→21:23)
--- NOTE | 2018-12-07 08:21 | RADIOLOGY REPORT (SQ) ---
EXAM DESCRIPTION: CHEST SINGLE VIEW COMPLETED DATE/TIME: 12/07/2018 6:26 am REASON FOR STUDY: pna/resp failure COMPARISON: 12/06/2018 EXAM PARAMETERS: NUMBER OF VIEWS: One view TECHNIQUE: Single frontal radiograph of the chest. RADIATION DOSE: N/A LIMITATIONS: None. FINDINGS: TEMPORARY SUPPORT DEVICES:ETT in expected location. NG tube courses below the sherry-diaphr agm in to the stomach. LUNGS AND PLEURA: Basilar opacities particular retrocardiac. Small effusions. No masses. No pneumotho rax. MEDIASTINUM AND HILAR STRUCTURES: No masses. Contour normal. HEART AND VASCULAR STRUCTURES: Heart enlarged. Vascular congestion. Aorta normal for age. BONES: No acute findings. OTHER: No other significant finding. IMPRESSION: Persistent vascular congestion. Persistent basilar opacities without improvement. SUPPORT DEVICE(S) IN EXPECTED LOCATIONS. TECHNICAL DOCUMENTATION: JOB ID: [id number] [employer]- All Rights Reserved Reading location - IP/workstation name: [email or web address]
[2018-12-07] MEDS: BUDESONIDE NEB 0.5 MG/2 ML AMPUL NEB SCH ×2 (08:42→20:13)
[2018-12-07] MEDS: MIDAZOLAM HCL 50 MG/100 ML RTUINJ IV PRN ×2 (09:22→17:05)
[2018-12-07] MEDS: PANTOT AC/MIN OIL/PET HY-PHL OINT 50 GM TOP SCH ×2 (09:23→21:22)
[2018-12-07] MEDS: THIAMINE HCL 100 MG in NORMAL SALINE 50 ML IV SCH (09:32)
[2018-12-07] MEDS: FUROSEMIDE INJ/PF 40 MG/4 ML SDV IV SCH ×2 (09:33→21:23)
[2018-12-07] MEDS: MULTIVITAMIN ORAL LIQUID 60 ML NG SCH (09:35)
--- NOTE | 2018-12-07 10:01 | PDOC PROGRESS REPORT ---
Subjective Progress Note for:: 12/07/18 Subjective:: Patient is still intubated but mildly sedated. She is actually awake today. She is being attempted to be weaned off for the last several days. She continues to have adequate amount of urine output with intermittent Lasix dosing. Reason For Visit: ACUTE RESPIRATORY FAILURE WITH HYPOXIA Physical Exam Vital Signs: Temp Pulse Resp BP Pulse Ox 98.6 F 86 24 H 125/86 H 93 12/07/18 08:00 12/07/18 08:42 12/07/18 08:42 12/07/18 08:00 12/07/18 08:42 Intake & Output 12/06/18 12/07/18 12/08/18 06:59 06:59 06:59 Intake Total 1116 971 167 Output Total 1575 1900 100 Balance -459 -929 67 Weight 117.1 kg 117.1 kg Exam: General appearance: PRESENT: Intubated but awake, seems slightly agitated this morning. Head exam: PRESENT: atraumatic, normocephalic Eye exam: PRESENT: Eyes opens intermittently Neck exam: ABSENT: JVD Respiratory exam: PRESENT: Coarse breath sounds. ABSENT: crackles, rales, rhonchi, unlabored, wheezes Cardiovascular exam: PRESENT: Regular rate rhythm -+S1, +S2. ABSENT: diastolic murmur, systolic murmur GI/Abdominal exam: PRESENT: No bowel sounds, soft. Positive subcutaneous edema ABSENT: guarding, mass, tenderness Extremities exam: Improve anasarca with minimal upper and lower extremity edema Neurological exam: PRESENT: Mildly sedated but awake today. Skin exam: PRESENT: dry, warm, Results Laboratory Results: 12/07/18 03:47 12/07/18 08:23 12/06/18 12/07/18 12/07/18 14:24 03:23 03:47 WBC RBC Hgb Hct MCV MCH MCHC RDW Plt Count Seg Neutrophils % Carbonic Acid 1.13 HCO3/H2CO3 Ratio 24:1 ABG pH 7.48 H ABG pCO2 37.7 ABG pO2 57.5 L ABG HCO3 27.3 H ABG O2 Saturation 91.8 L ABG Base Excess 3.7 FiO2 45% Sodium 139.9 Potassium 3.5 L 3.2 L Chloride 99 Carbon Dioxide 28 Anion Gap 13 BUN 14 Creatinine 0.69 Est GFR ( Amer) > 60 Glucose 82 Calcium 9.6 Phosphorus 4.8 H Magnesium 1.9 12/07/18 12/07/18 03:47 08:23 WBC 6.8 RBC 5.06 Hgb 12.6 Hct 40.4 MCV 80 MCH 24.9 L MCHC 31.2 L RDW 21.0 H Plt Count 393 Seg Neutrophils % 69.8 Carbonic Acid HCO3/H2CO3 Ratio ABG pH ABG pCO2 ABG pO2 ABG HCO3 ABG O2 Saturation ABG Base Excess FiO2 Sodium Potassium 3.6 Chloride Carbon Dioxide Anion Gap BUN Creatinine Est GFR ( Amer) Glucose Calcium Phosphorus Magnesium 12/05/18 10:15 Bronchial Washings Gram Stain - Final 12/05/18 10:15 Bronchial Washings Bronchial Washings Culture - Final Klebsiella(Enterobac)Aerogenes Normal Chikis Absent 11/25/18 11/25/18 11/25/18 01:58 07:39 07:39 Creatine Kinase 50 CK-MB (CK-2) 0.53 Troponin I < 0.012 < 0.012 NT-Pro-B Natriuret Pep 766 H 11/25/18 11/25/18 11/25/18 12:03 12:03 18:17 Creatine Kinase 37 29 L CK-MB (CK-2) 0.37 Troponin I < 0.012 NT-Pro-B Natriuret Pep 11/25/18 11/26/18 18:17 03:32 Creatine Kinase CK-MB (CK-2) < 0.22 Troponin I < 0.012 NT-Pro-B Natriuret Pep 490 H Impressions: Abdomen Ultrasound 11/25/18 01:12 IMPRESSION: No free fluid identified within the upper quadrants. Evaluation of the lower quadrants was limited due to patient positioning as per the technologist. Head CT 11/27/18 00:00 IMPRESSION: Sinus disease. No acute intracranial imaging findings. EVIDENCE OF ACUTE STROKE: NO. Abdomen/Pelvis CT 12/03/18 00:00 IMPRESSION: Bilateral lower lobe consolidation -atelectasis. No pneumothorax pleural effusion. Endotracheal tube is present with tip 1.3 cm above the level of the kirill. IMPRESSION: Small amount of pelvic free fluid. No bowel dilatation. Chest CT 12/03/18 00:00 IMPRESSION: Bilateral lower lobe consolidation -atelectasis. No pneumothorax pleural effusion. Endotracheal tube is present with tip 1.3 cm above the level of the kirill. IMPRESSION: Small amount of pelvic free fluid. No bowel dilatation. KUB X-Ray 12/03/18 12:02 IMPRESSION: NO RADIOGRAPHIC EVIDENCE FOR ACUTE ABDOMINAL DISEASE.NG tube tip overlies the pyloric region of the stomach. Chest X-Ray 12/07/18 06:00 IMPRESSION: Persistent vascular congestion. Persistent basilar opacities without improvement. SUPPORT DEVICE(S) IN EXPECTED LOCATIONS. Assessment & Plan - Diagnosis (1) Acute kidney injury Is this a current diagnosis for this admission?: Yes Plan: Resolved. Discontinue Lasix drip. Change to intermittent Lasix 40 mg IV every 12 hours. Lasix dose might even be needed to be decreased to daily dosing depending on response for the next 24 hours. (2) Acute respiratory failure with hypoxia Is this a current diagnosis for this admission?: Yes Plan: Pulmonary on board. Still being weaned off mechanical ventilation. (3) Anasarca Is this a current diagnosis for this admission?: Yes Plan: Continues to improve. Patient has gone from admission weight of 140 kg to current weight of 117 kg. (4) Edema due to hypoalbuminemia Is this a current diagnosis for this admission?: Yes Plan: Albumin is improved to almost normal. (5) Metabolic alkalosis Is this a current diagnosis for this admission?: Yes Plan: Resolved. (6) Hypokalemia Is this a current diagnosis for this admission?: Yes Plan: Replace per electrolyte protocol. (7) Ileus Is this a current diagnosis for this admission?: Yes (8) Cocaine use Is this a current diagnosis for this admission?: Yes (9) Morbid obesity with BMI of 45.0-49.9, adult Is this a current diagnosis for this admission?: Yes - Notes Notes: No further recommendations from nephrology standpoint. Discussed the case with Dr. Beavers. Will sign off at this time. Please call me if I can be of further help. - Time Time with patient: 15-25 minutes
--- NOTE | 2018-12-07 10:32 | PDOC PROGRESS REPORT ---
Subjective Progress Note for:: 12/07/18 Subjective:: The patient is back on sedation. She became somewhat agitated during her weaning trial. She became tachypneic and was unable to tolerate ongoing weaning. Reason For Visit: ACUTE RESPIRATORY FAILURE WITH HYPOXIA Physical Exam Vital Signs: Temp Pulse Resp BP Pulse Ox 98.4 F 86 13 107/84 92 12/07/18 10:00 12/07/18 08:42 12/07/18 10:00 12/07/18 09:49 12/07/18 10:00 Intake & Output 12/06/18 12/07/18 12/08/18 06:59 06:59 06:59 Intake Total 1116 971 189 Output Total 1575 1900 100 Balance -459 -929 89 Weight 117.1 kg 117.1 kg General appearance: PRESENT: no acute distress, morbidly obese, well-developed Head exam: PRESENT: atraumatic, normocephalic Ear exam: PRESENT: normal external ear exam. ABSENT: bleeding, drainage Mouth exam: PRESENT: other - Endotracheal tube and orogastric tube in place Respiratory exam: PRESENT: clear to auscultation linda - Anteriorly, decreased breath sounds - Bilateral bases, symmetrical, unlabored - With sedation. ABSENT: rales - Difficult to assess due to ventilator driven breaths., rhonchi, wheezes Cardiovascular exam: PRESENT: RRR, +S1, +S2 GI/Abdominal exam: PRESENT: diminished bowel sounds, firm. ABSENT: rigid, tenderness Rectal exam: PRESENT: deferred Gentrourinary exam: PRESENT: indwelling catheter Extremities exam: ABSENT: joint swelling, pedal edema - No pitting edema, tenderness Musculoskeletal exam: PRESENT: normal inspection Neurological exam: ABSENT: awake Psychiatric exam: ABSENT: agitated Focused psych exam: ABSENT: restlessness - With sedation restlessness has resolved Skin exam: PRESENT: dry, normal color, warm. ABSENT: rash Results Laboratory Results: 12/07/18 03:47 12/07/18 08:23 12/06/18 12/07/18 12/07/18 14:24 03:23 03:47 WBC RBC Hgb Hct MCV MCH MCHC RDW Plt Count Seg Neutrophils % Carbonic Acid 1.13 HCO3/H2CO3 Ratio 24:1 ABG pH 7.48 H ABG pCO2 37.7 ABG pO2 57.5 L ABG HCO3 27.3 H ABG O2 Saturation 91.8 L ABG Base Excess 3.7 FiO2 45% Sodium 139.9 Potassium 3.5 L 3.2 L Chloride 99 Carbon Dioxide 28 Anion Gap 13 BUN 14 Creatinine 0.69 Est GFR ( Amer) > 60 Glucose 82 Calcium 9.6 Phosphorus 4.8 H Magnesium 1.9 12/07/18 12/07/18 03:47 08:23 WBC 6.8 RBC 5.06 Hgb 12.6 Hct 40.4 MCV 80 MCH 24.9 L MCHC 31.2 L RDW 21.0 H Plt Count 393 Seg Neutrophils % 69.8 Carbonic Acid HCO3/H2CO3 Ratio ABG pH ABG pCO2 ABG pO2 ABG HCO3 ABG O2 Saturation ABG Base Excess FiO2 Sodium Potassium 3.6 Chloride Carbon Dioxide Anion Gap BUN Creatinine Est GFR ( Amer) Glucose Calcium Phosphorus Magnesium 12/05/18 10:15 Bronchial Washings Gram Stain - Final 12/05/18 10:15 Bronchial Washings Bronchial Washings Culture - Final Klebsiella(Enterobac)Aerogenes Normal Chikis Absent 11/25/18 11/25/18 11/25/18 01:58 07:39 07:39 Creatine Kinase 50 CK-MB (CK-2) 0.53 Troponin I < 0.012 < 0.012 NT-Pro-B Natriuret Pep 766 H 11/25/18 11/25/18 11/25/18 12:03 12:03 18:17 Creatine Kinase 37 29 L CK-MB (CK-2) 0.37 Troponin I < 0.012 NT-Pro-B Natriuret Pep 11/25/18 11/26/18 18:17 03:32 Creatine Kinase CK-MB (CK-2) < 0.22 Troponin I < 0.012 NT-Pro-B Natriuret Pep 490 H Impressions: Abdomen Ultrasound 11/25/18 01:12 IMPRESSION: No free fluid identified within the upper quadrants. Evaluation of the lower quadrants was limited due to patient positioning as per the technologist. Head CT 11/27/18 00:00 IMPRESSION: Sinus disease. No acute intracranial imaging findings. EVIDENCE OF ACUTE STROKE: NO. Abdomen/Pelvis CT 12/03/18 00:00 IMPRESSION: Bilateral lower lobe consolidation -atelectasis. No pneumothorax pleural effusion. Endotracheal tube is present with tip 1.3 cm above the level of the kirill. IMPRESSION: Small amount of pelvic free fluid. No bowel dilatation. Chest CT 12/03/18 00:00 IMPRESSION: Bilateral lower lobe consolidation -atelectasis. No pneumothorax pleural effusion. Endotracheal tube is present with tip 1.3 cm above the level of the kirill. IMPRESSION: Small amount of pelvic free fluid. No bowel dilatation. KUB X-Ray 12/03/18 12:02 IMPRESSION: NO RADIOGRAPHIC EVIDENCE FOR ACUTE ABDOMINAL DISEASE.NG tube tip overlies the pyloric region of the stomach. Chest X-Ray 12/07/18 06:00 IMPRESSION: Persistent vascular congestion. Persistent basilar opacities without improvement. SUPPORT DEVICE(S) IN EXPECTED LOCATIONS. Assessment and Plan - Diagnosis (1) Sepsis Qualifiers: Sepsis type: sepsis due to unspecified organism Sepsis acute organ dysfunction status: unspecified Qualified Code(s): A41.9 - Sepsis, unspecified organism Is this a current diagnosis for this admission?: Yes Plan: 12/05/2018-sepsis most likely due to pneumonia. The patient did undergo bronch oscopy today and cultures are pending. She is no longer hypotensive. Antibiotic therapy is completed. Sepsis resolved 12/06/2018-resolved (2) Acute respiratory failure with hypoxia Is this a current diagnosis for this admission?: Yes Plan: 12/05/2018-the patient remains intubated and sedated. Currently on SIMV with a tidal volume of 500, PEEP 10, respiratory rate 16 and FiO2 50%. The patient did undergo bronchoscopy today. Bronchial washings were sent for culture. We will continue to attempt weaning daily. 12/06/2018-the patient remains intubated. Weaning trials are ongoing. The patient did undergo bronchoscopy yesterday. Bronchial washings are growing gram-negative bacilli. Her white blood cell count is normal and she is afebrile. It is possible that there is no occult infection inhibiting weaning. We should have a tentative identification tomorrow. I will then discuss with pulmonology a need to treat or not. We will otherwise continue pulmonary treatments. 12/07/2018-the patient still has high peak pressures and has failed weaning trials. She gets tachypneic and somewhat agitated. As it is unlikely she will be able to be extubated I am going to discuss with her aunt the next step which would be PEG tube, tracheostomy and placement. Finding a facility for long-term vent weaning will likely lead to searching out of state. The bronchial washings did culture positive for Klebsiella. She has been started on Rocephin. (3) Alcoholism Is this a current diagnosis for this admission?: Yes Plan: 12/05/2018-the patient should be passed any window for withdrawal. Will need to encourage alcohol cessation with outpatient treatment if she survives this episode. 12/06/2018-past the window of withdrawal. Would benefit from cessation and a support group post recovery 12/07/2018-certainly a contributing factor to her poor health. Encourage patient support group if the patient survives. (4) Acute kidney injury Is this a current diagnosis for this admission?: Yes Plan: 12/05/2018-the patient has exhibited a marked loss in weight with significant diuresis. She is net negative almost 10 L. She continues on a furosemide infusion. Dr. Johnson reports that she will likely change from a continuous furosemide infusion to intermittent dosing. Serum creatinine is down to 0.95. 12/06/2018-acute kidney injury has resolved. 12/07/2018-initial injury has resolved. Continue to monitor renal function. (5) Cocaine use Is this a current diagnosis for this admission?: Yes Plan: 12/05/2018-toxicology screen was positive for cocaine on admission. The patient is past the window of any withdrawal. Will need to encourage cessation with outpatient rehab. The patient has exhibited marked noncompliance in the past. 12/06/2018-try to encourage an addiction support program as an outpatient 12/07/2018-May contributing factor to her recurrent illness he is and poor ability to recover. If the patient survives hopefully she will participate in a drug abuse treatment program. (6) Pneumonia Qualifiers: Pneumonia type: due to unspecified organism Laterality: bilateral Lung location: lower lobe of lung Qualified Code(s): J18.1 - Lobar pneumonia, unspecified organism Is this a current diagnosis for this admission?: Yes Plan: 12/05/2018-bilateral airspace disease. The patient completed therapy with Zosyn. White count has normalized. Still trying to wean from ventilator. Bronchoscopy performed today. Bronchial washings sent for culture to assess for any remaining infection. 12/06/2018-the patient did complete a course of Zosyn. Her white count remains normal however the bronchoscopy washings are growing gram-negative bacilli. I will await more information tomorrow and discuss with pulmonology. This may re quire antibiotic therapy and certainly could be causing slow weaning. 12/07/2018-the patient did undergo initial treatment with Zosyn for pneumonia. Bronchoscopy 48 hours ago supplied washings for culture. Klebsiella was isolated. It is sensitive to Rocephin and so the patient is on ceftriaxone. (7) Anasarca Is this a current diagnosis for this admission?: Yes Plan: 12/05/2018-continued improvement with a net negative fluid loss of over 10 L and commensurate weight loss. The patient is currently on infusion of furosemide. Nephrology reports that they will be changing to scheduled dosing and discontinuing the infusion in the next 24 to 48 hours. 12/06/2018-significant improvement from admission. Dr. Johnson has stopped the furosemide infusion and the patient is now on 40 mg IV every 12 hours. We will continue to monitor electrolytes, blood pressure and renal function. We will try and avoid a net positive fluid balance. 12/07/2018-resolved. The patient is currently on 40 mg of furosemide twice daily. We will monitor her intake and output and consider 20 mg twice daily and try to maintain normovolemia (8) Anemia Qualifiers: Anemia type: iron deficiency Iron deficiency anemia type: inadequate dietary iron intake Qualified Code(s): D50.8 - Other iron deficiency anemias Is this a current diagnosis for this admission?: Yes Plan: 12/05/2018-hemoglobin today was 12.0. We will continue to monitor. No evidence of blood loss. 12/06/2018-hemoglobin remains stable. Monitor for blood loss. 12/07/2018-it appears that her critical illness anemia is recovering. (9) Hyperbilirubinemia Is this a current diagnosis for this admission?: Yes Plan: 12/05/2018-total bilirubin is down to 1.9. This is improved from a total bilirubin greater than 4.0 last week. Acute liver injury secondary to sepsis. Continue to monitor liver function. 12/06/2018-as noted above total bilirubin was down to 1.9. I will recheck liver chemistries in several days. 12/07/2018-we will recheck bilirubin tomorrow. (10) Elevated LFTs Is this a current diagnosis for this admission?: Yes Plan: 12/05/2018-as noted above acute hepatic injury due to sepsis. Liver chemistries improving. Continue to monitor. 12/06/2018-as noted above we will monitor liver chemistries every several days. Blood work continues to improve. 12/07/2018-we will recheck liver chemistries tomorrow. (11) Breast mass in female Is this a current diagnosis for this admission?: Yes Plan: 12/05/2018-breast mass noted during imaging for pneumonia. The patient will need outpatient work-up. 12/06/2018-continue work-up as an outpatient 12/07/2018-consideration should be given of the possibility of malignancy. This could contribute to decision-making with regard to ongoing aggressive treatment. (12) CHF (congestive heart failure) Qualifiers: Heart failure type: diastolic Is this a current diagnosis for this admission?: Yes Plan: 12/05/2018-the patient had an echocardiogram earlier this year. Her ejection fraction was 65 and she exhibited 1/4 diastolic dysfunction. We will continue management as outlined above. 12/06/2018-we will continue to monitor. With changes in medication will consider adding an LEONARDA inhibitor, angiotensin receptor tess and or Aldactone. Currently congestive heart failure is present but stable. We will begin to modify therapy as the patient recovers. 12/07/2018-does not appear that heart failure is a clinical concern at this time. Infection and dependent atelectasis as well as her morbid obesity appear to be the primary drivers for inability to extubate the patient. (13) Morbid obesity with BMI of 40.0-44.9, adult Is this a current diagnosis for this admission?: Yes Plan: 12/05/2018-the patient is morbidly obese. Her BMI is 43. This could be causing morbid obesity hypoventilation making it difficult to wean her from the vent. She will benefit from weight loss. The noncompliance she has exhibited with regard to medications and her health in general makes it unlikely that she will comply with a weight loss diet. 12/06/2018-as above 12/07/2018-I believe the morbid obesity is clearly contributing to the difficulty in weaning. - Time Time Spent with patient: 25-34 minutes - Plan Summary Plan Summary: I did place a call to the patient's aunt, Kisha Ansari. She was unavailable this morning. I will try again later today or tomorrow. At this point, decisions have to be made regarding tracheostomy, PEG tube placement and patient disposition.
[2018-12-07] MEDS: CEFTRIAXONE 1 GM/D5W RTU 1 GM/50 ML RTUPB IV SCH (11:55)
[2018-12-07] MEDS: PANTOPRAZOLE SODIUM 40 MG VIAL IV SCH (11:55)
[2018-12-07] MEDS: METOCLOPRAMIDE HCL INJ/PF 10 MG/2 ML SDV IV SCH ×2 (11:55→17:01)
[2018-12-07] MEDS ORDERED: PHENTOLAMINE MESYLATE INJ 5 MG VIAL IV SCH (12:00)
--- NOTE | 2018-12-07 12:34 | PDOC PROGRESS REPORT ---
Subjective Progress Note for:: 12/07/18 Subjective:: Intubated and sedated Reason For Visit: ACUTE RESPIRATORY FAILURE WITH HYPOXIA Physical Exam Vital Signs: Temp Pulse Resp BP Pulse Ox 98.8 F 77 16 113/75 93 12/07/18 06:00 12/07/18 08:00 12/07/18 06:00 12/07/18 05:49 12/07/18 06:00 Intake & Output 12/06/18 12/07/18 12/08/18 06:59 06:59 06:59 Intake Total 1116 971 100 Output Total 1575 1900 Balance -459 -929 100 Weight 117.1 kg 117.1 kg General appearance: PRESENT: no acute distress, disheveled, morbidly obese. ABSENT: cooperative Head exam: PRESENT: atraumatic, normocephalic Eye exam: PRESENT: conjunctiva pale. ABSENT: nystagmus, periorbital swelling, scleral icterus Mouth exam: PRESENT: dry mucosa, neck supple, tongue midline, other - ET tube Neck exam: ABSENT: carotid bruit, full ROM, JVD, lymphadenopathy, meningismus, tenderness, thyromegaly, tracheal deviation, tracheostomy, other Respiratory exam: PRESENT: decreased breath sounds, prolonged expiratory phas, rales, rhonchi, symmetrical, unlabored. ABSENT: retraction, stridor, tachypnea Cardiovascular exam: PRESENT: RRR, +S1, +S2 Pulses: PRESENT: normal radial pulses GI/Abdominal exam: PRESENT: hypoactive bowel sounds, soft. ABSENT: mass Gentrourinary exam: PRESENT: indwelling catheter Extremities exam: PRESENT: +1 edema. ABSENT: calf tenderness, clubbing, joint swelling Musculoskeletal exam: ABSENT: ambulatory, deformity, dislocation Neurological exam: PRESENT: altered Skin exam: PRESENT: dry, warm Results Laboratory Results: 12/07/18 03:47 12/06/18 12/07/18 12/07/18 14:24 03:23 03:47 WBC RBC Hgb Hct MCV MCH MCHC RDW Plt Count Seg Neutrophils % Carbonic Acid 1.13 HCO3/H2CO3 Ratio 24:1 ABG pH 7.48 H ABG pCO2 37.7 ABG pO2 57.5 L ABG HCO3 27.3 H ABG O2 Saturation 91.8 L ABG Base Excess 3.7 FiO2 45% Sodium 139.9 Potassium 3.5 L 3.2 L Chloride 99 Carbon Dioxide 28 Anion Gap 13 BUN 14 Creatinine 0.69 Est GFR ( Amer) > 60 Glucose 82 Calcium 9.6 Phosphorus 4.8 H Magnesium 1.9 12/07/18 03:47 WBC 6.8 RBC 5.06 Hgb 12.6 Hct 40.4 MCV 80 MCH 24.9 L MCHC 31.2 L RDW 21.0 H Plt Count 393 Seg Neutrophils % 69.8 Carbonic Acid HCO3/H2CO3 Ratio ABG pH ABG pCO2 ABG pO2 ABG HCO3 ABG O2 Saturation ABG Base Excess FiO2 Sodium Potassium Chloride Carbon Dioxide Anion Gap BUN Creatinine Est GFR ( Amer) Glucose Calcium Phosphorus Magnesium 11/25/18 11/25/18 11/25/18 01:58 07:39 07:39 Creatine Kinase 50 CK-MB (CK-2) 0.53 Troponin I < 0.012 < 0.012 NT-Pro-B Natriuret Pep 766 H 11/25/18 11/25/18 11/25/18 12:03 12:03 18:17 Creatine Kinase 37 29 L CK-MB (CK-2) 0.37 Troponin I < 0.012 NT-Pro-B Natriuret Pep 11/25/18 11/26/18 18:17 03:32 Creatine Kinase CK-MB (CK-2) < 0.22 Troponin I < 0.012 NT-Pro-B Natriuret Pep 490 H Impressions: Abdomen Ultrasound 11/25/18 01:12 IMPRESSION: No free fluid identified within the upper quadrants. Evaluation of the lower quadrants was limited due to patient positioning as per the technologist. Head CT 11/27/18 00:00 IMPRESSION: Sinus disease. No acute intracranial imaging findings. EVIDENCE OF ACUTE STROKE: NO. Abdomen/Pelvis CT 12/03/18 00:00 IMPRESSION: Bilateral lower lobe consolidation -atelectasis. No pneumothorax pleural effusion. Endotracheal tube is present with tip 1.3 cm above the level of the kirill. IMPRESSION: Small amount of pelvic free fluid. No bowel dilatation. Chest CT 12/03/18 00:00 IMPRESSION: Bilateral lower lobe consolidation -atelectasis. No pneumothorax pleural effusion. Endotracheal tube is present with tip 1.3 cm above the level of the kirill. IMPRESSION: Small amount of pelvic free fluid. No bowel dilatation. KUB X-Ray 12/03/18 12:02 IMPRESSION: NO RADIOGRAPHIC EVIDENCE FOR ACUTE ABDOMINAL DISEASE.NG tube tip overlies the pyloric region of the stomach. Chest X-Ray 12/07/18 06:00 IMPRESSION: Persistent vascular congestion. Persistent basilar opacities without improvement. SUPPORT DEVICE(S) IN EXPECTED LOCATIONS. Assessment & Plan - Diagnosis (1) Acute respiratory failure with hypoxia Is this a current diagnosis for this admission?: Yes Plan: That is post bronchoalveolar lavage positive for Klebsiella (2) CHF (congestive heart failure) Qualifiers: Heart failure type: diastolic Is this a current diagnosis for this admission?: Yes Plan: Lasix drip appears to be working (3) Cellulitis of both lower extremities Is this a current diagnosis for this admission?: Yes Plan: Cephalosporin or clindamycin (4) Anasarca Is this a current diagnosis for this admission?: Yes Plan: Improving (5) Morbid obesity with BMI of 40.0-44.9, adult Is this a current diagnosis for this admission?: Yes Plan: When stable consider nutritional consult (6) Tobacco dependence Is this a current diagnosis for this admission?: Yes Plan: Transdermal nicotine - Time Total Critical Time (Minutes): 40
--- NOTE | 2018-12-07 12:37 | Operative Report ---
Operative Report DATE OF SURGERY: 12/06/18 Operative Report: Patient intubated and sedated requiring elevated PEEP and FiO2's CT scan shows bibasilar posterior consolidation. Yueh centesis bronchoscope her tracheal bronchial tree was explored there were no abnormalities of the distant trachea there is no splaying of the kirill of the right mainstem bronchus with shows some mucus but it was not purulent as did the right upper lobe right bronchus intermedius right middle lobe and right lower lobe. Left mainstem bronchus also showed some mucus again not purulent as did the left upper lobe lingula and left lower lobe lavage was taken of the posterior segment of the right lower lobe as well as lavage taken of the posterior segment of the left lower lobe patient tolerated procedure well a postprocedure SaO2 was 93%. Lavage fluid will be sent for appropriate cultures and studies PREOPERATIVE DIAGNOSIS: Bibasilar atelectasis POSTOPERATIVE DIAGNOSIS: Same OPERATION: Fiberoptic bronchoscopy with bronchoalveolar lavage SURGEON: SHER TREJO ANESTHESIA: GA COMPLICATIONS: none ESTIMATED BLOOD LOSS: n/a
--- NOTE | 2018-12-07 12:41 | PDOC PROGRESS REPORT ---
Subjective Progress Note for:: 12/06/18 Subjective:: Intubated and sedated Reason For Visit: ACUTE RESPIRATORY FAILURE WITH HYPOXIA Physical Exam Vital Signs: Temp Pulse Resp BP Pulse Ox 98.6 F 79 16 104/65 95 12/06/18 06:00 12/06/18 08:00 12/06/18 06:00 12/06/18 05:24 12/06/18 06:00 Intake & Output 12/05/18 12/06/18 12/07/18 06:59 06:59 06:59 Intake Total 1169 1116 35 Output Total 2650 1575 Balance -1481 -579 35 Weight 117.3 kg 117.1 kg General appearance: PRESENT: no acute distress, disheveled, morbidly obese. ABSENT: cooperative Head exam: PRESENT: atraumatic, normocephalic Eye exam: PRESENT: conjunctiva pale. ABSENT: nystagmus, periorbital swelling, scleral icterus Mouth exam: PRESENT: dry mucosa, neck supple, tongue midline, other - ET tube Neck exam: ABSENT: carotid bruit, full ROM, JVD, lymphadenopathy, meningismus, tenderness, thyromegaly, tracheal deviation, tracheostomy, other Respiratory exam: PRESENT: decreased breath sounds, prolonged expiratory phas, rales, rhonchi, symmetrical, unlabored. ABSENT: retraction, stridor Cardiovascular exam: PRESENT: RRR, +S1, +S2, tachycardia Pulses: PRESENT: normal radial pulses GI/Abdominal exam: PRESENT: soft. ABSENT: mass, tenderness Gentrourinary exam: PRESENT: indwelling catheter Extremities exam: PRESENT: +1 edema. ABSENT: calf tenderness, clubbing, joint swelling Musculoskeletal exam: ABSENT: ambulatory, deformity, dislocation Neurological exam: ABSENT: altered, awake Skin exam: PRESENT: dry, warm Results Laboratory Results: 12/06/18 03:46 12/06/18 03:46 12/05/18 12/05/18 12/05/18 10:15 11:12 11:12 WBC RBC Hgb Hct MCV MCH MCHC RDW Plt Count Seg Neutrophils % Lymphocytes % Monocytes % Eosinophils % Basophils % Absolute Neutrophils Absolute Lymphocytes Absolute Monocytes Absolute Eosinophils Absolute Basophils Carbonic Acid HCO3/H2CO3 Ratio ABG pH ABG pCO2 ABG pO2 ABG HCO3 ABG O2 Saturation ABG Base Excess FiO2 Sodium 138.0 Potassium 4.0 Chloride 96 L Carbon Dioxide 25 Anion Gap 17 BUN 19 Creatinine 0.96 Est GFR ( Amer) > 60 Est GFR (Non-Af Amer) > 60 Glucose 72 L Calcium 9.3 Magnesium Total Bilirubin 1.9 H AST 64 H Alkaline Phosphatase 183 H Total Protein 8.8 H Albumin 4.0 Fluid Type BRONCHIAL WASH Fluid Source LUNG Fluid Color PINK Fluid Appearance CLOUDY Fluid Viscosity LIQUID Fluid WBC 204 Fluid RBC 1248 12/06/18 12/06/18 12/06/18 03:46 03:46 04:04 WBC 7.0 RBC 4.90 Hgb 12.3 Hct 39.3 MCV 80 MCH 25.2 L MCHC 31.4 L RDW 20.8 H Plt Count 336 Seg Neutrophils % 73.2 Lymphocytes % 18.8 Monocytes % 5.9 Eosinophils % 1.6 Basophils % 0.5 Absolute Neutrophils 5.1 Absolute Lymphocytes 1.3 Absolute Monocytes 0.4 Absolute Eosinophils 0.1 Absolute Basophils 0.0 Carbonic Acid 1.13 HCO3/H2CO3 Ratio 22:1 ABG pH 7.44 ABG pCO2 37.7 ABG pO2 71.0 L ABG HCO3 25.0 H ABG O2 Saturation 94.9 ABG Base Excess 1.1 FiO2 50% Sodium 139.8 Potassium 3.4 L Chloride 98 Carbon Dioxide 24 Anion Gap 18 BUN 15 Creatinine 0.84 Est GFR ( Amer) > 60 Est GFR (Non-Af Amer) > 60 Glucose 76 Calcium 9.4 Magnesium 2.0 Total Bilirubin AST Alkaline Phosphatase Total Protein Albumin Fluid Type Fluid Source Fluid Color Fluid Appearance Fluid Viscosity Fluid WBC Fluid RBC 11/25/18 11/25/18 11/25/18 01:58 07:39 07:39 Creatine Kinase 50 CK-MB (CK-2) 0.53 Troponin I < 0.012 < 0.012 NT-Pro-B Natriuret Pep 766 H 11/25/18 11/25/18 11/25/18 12:03 12:03 18:17 Creatine Kinase 37 29 L CK-MB (CK-2) 0.37 Troponin I < 0.012 NT-Pro-B Natriuret Pep 11/25/18 11/26/18 18:17 03:32 Creatine Kinase CK-MB (CK-2) < 0.22 Troponin I < 0.012 NT-Pro-B Natriuret Pep 490 H Impressions: Abdomen Ultrasound 11/25/18 01:12 IMPRESSION: No free fluid identified within the upper quadrants. Evaluation of the lower quadrants was limited due to patient positioning as per the technologist. Head CT 11/27/18 00:00 IMPRESSION: Sinus disease. No acute intracranial imaging findings. EVIDENCE OF ACUTE STROKE: NO. Abdomen/Pelvis CT 12/03/18 00:00 IMPRESSION: Bilateral lower lobe consolidation -atelectasis. No pneumothorax pleural effusion. Endotracheal tube is present with tip 1.3 cm above the level of the kirill. IMPRESSION: Small amount of pelvic free fluid. No bowel dilatation. Chest CT 12/03/18 00:00 IMPRESSION: Bilateral lower lobe consolidation -atelectasis. No pneumothorax pleural effusion. Endotracheal tube is present with tip 1.3 cm above the level of the kirill. IMPRESSION: Small amount of pelvic free fluid. No bowel dilatation. KUB X-Ray 12/03/18 12:02 IMPRESSION: NO RADIOGRAPHIC EVIDENCE FOR ACUTE ABDOMINAL DISEASE.NG tube tip overlies the pyloric region of the stomach. Chest X-Ray 12/06/18 06:00 IMPRESSION: Low lung volumes with persistent right mid lung and left basilar patchy opacities. Small stable bilateral effusions. Lines and tubes as above. Assessment & Plan - Diagnosis (1) Acute respiratory failure with hypoxia Is this a current diagnosis for this admission?: Yes Plan: She is still requiring elevated PEEP and FiO2 to maintain minimal acceptable Sa O2 71/.5 = 142 (2) CHF (congestive heart failure) Qualifiers: Heart failure type: diastolic Is this a current diagnosis for this admission?: Yes Plan: Improving (3) Cellulitis of both lower extremities Is this a current diagnosis for this admission?: Yes Plan: Cephalosporin or clindamycin (4) Anasarca Is this a current diagnosis for this admission?: Yes Plan: Improving (5) Morbid obesity with BMI of 40.0-44.9, adult Is this a current diagnosis for this admission?: Yes Plan: When stable consider nutritional consult (6) Tobacco dependence Is this a current diagnosis for this admission?: Yes Plan: Transdermal nicotine - Time Total Critical Time (Minutes): 40
--- NOTE | 2018-12-07 12:43 | PDOC PROGRESS REPORT ---
Subjective Progress Note for:: 12/05/18 Subjective:: Intubated and sedated Reason For Visit: ACUTE RESPIRATORY FAILURE WITH HYPOXIA Physical Exam Vital Signs: Temp Pulse Resp BP Pulse Ox 98.6 F 91 15 103/69 93 12/05/18 08:00 12/05/18 08:54 12/05/18 08:54 12/05/18 08:00 12/05/18 08:54 Intake & Output 12/04/18 12/05/18 12/06/18 06:59 06:59 06:59 Intake Total 2250 1169 142 Output Total 3560 2650 200 Balance -1310 -1481 -58 Weight 120.2 kg 117.3 kg General appearance: PRESENT: no acute distress, disheveled, morbidly obese Head exam: PRESENT: atraumatic, normocephalic Eye exam: PRESENT: conjunctiva pale. ABSENT: nystagmus, periorbital swelling, scleral icterus Mouth exam: PRESENT: dry mucosa, neck supple, tongue midline, other - ET tube Neck exam: ABSENT: carotid bruit, full ROM, JVD, lymphadenopathy, meningismus, tenderness, thyromegaly, tracheal deviation, tracheostomy, other Respiratory exam: PRESENT: decreased breath sounds, prolonged expiratory phas, rales, rhonchi, unlabored. ABSENT: retraction, stridor Cardiovascular exam: PRESENT: RRR, +S1, +S2, tachycardia Pulses: PRESENT: normal radial pulses GI/Abdominal exam: PRESENT: soft. ABSENT: mass, tenderness Gentrourinary exam: PRESENT: indwelling catheter Extremities exam: PRESENT: +1 edema. ABSENT: calf tenderness, clubbing, joint swelling, tenderness Musculoskeletal exam: ABSENT: ambulatory, deformity, dislocation Neurological exam: ABSENT: awake Skin exam: PRESENT: dry, warm Results Laboratory Results: 12/05/18 04:05 12/05/18 04:05 12/05/18 12/05/18 12/05/18 03:13 04:05 04:05 WBC 5.8 RBC 4.75 Hgb 12.0 Hct 37.5 MCV 79 L MCH 25.2 L MCHC 31.9 L RDW 21.0 H Plt Count 284 Seg Neutrophils % Not Reportable Lymphocytes % Not Reportable Monocytes % Not Reportable Eosinophils % Not Reportable Basophils % Not Reportable Absolute Neutrophils Not Reportable Absolute Lymphocytes Not Reportable Absolute Monocytes Not Reportable Absolute Eosinophils Not Reportable Absolute Basophils Not Reportable Carbonic Acid 1.13 HCO3/H2CO3 Ratio 25:1 ABG pH 7.51 H ABG pCO2 37.4 ABG pO2 75.2 L ABG HCO3 28.9 H ABG O2 Saturation 96.2 ABG Base Excess 5.6 FiO2 50% Sodium 136.6 L Potassium 3.2 L Chloride 94 L Carbon Dioxide 26 Anion Gap 17 BUN 20 Creatinine 0.95 Est GFR ( Amer) > 60 Est GFR (Non-Af Amer) > 60 Glucose 72 L Calcium 9.3 Phosphorus 5.8 H Magnesium 2.1 11/25/18 11/25/18 11/25/18 01:58 07:39 07:39 Creatine Kinase 50 CK-MB (CK-2) 0.53 Troponin I < 0.012 < 0.012 NT-Pro-B Natriuret Pep 766 H 11/25/18 11/25/18 11/25/18 12:03 12:03 18:17 Creatine Kinase 37 29 L CK-MB (CK-2) 0.37 Troponin I < 0.012 NT-Pro-B Natriuret Pep 11/25/18 11/26/18 18:17 03:32 Creatine Kinase CK-MB (CK-2) < 0.22 Troponin I < 0.012 NT-Pro-B Natriuret Pep 490 H Impressions: Abdomen Ultrasound 11/25/18 01:12 IMPRESSION: No free fluid identified within the upper quadrants. Evaluation of the lower quadrants was limited due to patient positioning as per the technologist. Head CT 11/27/18 00:00 IMPRESSION: Sinus disease. No acute intracranial imaging findings. EVIDENCE OF ACUTE STROKE: NO. Abdomen/Pelvis CT 12/03/18 00:00 IMPRESSION: Bilateral lower lobe consolidation -atelectasis. No pneumothorax pleural effusion. Endotracheal tube is present with tip 1.3 cm above the level of the kirill. IMPRESSION: Small amount of pelvic free fluid. No bowel dilatation. Chest CT 12/03/18 00:00 IMPRESSION: Bilateral lower lobe consolidation -atelectasis. No pneumothorax pleural effusion. Endotracheal tube is present with tip 1.3 cm above the level of the kirill. IMPRESSION: Small amount of pelvic free fluid. No bowel dilatation. KUB X-Ray 12/03/18 12:02 IMPRESSION: NO RADIOGRAPHIC EVIDENCE FOR ACUTE ABDOMINAL DISEASE.NG tube tip overlies the pyloric region of the stomach. Chest X-Ray 12/05/18 06:00 IMPRESSION: STABLE APPEARANCE OF THE CHEST. SUPPORT DEVICES UNCHANGED. Assessment & Plan - Diagnosis (1) Acute respiratory failure with hypoxia Is this a current diagnosis for this admission?: Yes Plan: She is still requiring elevated PEEP and FiO2 to maintain minimal acceptable SaO2 (2) CHF (congestive heart failure) Qualifiers: Heart failure type: diastolic Is this a current diagnosis for this admission?: Yes Plan: Improving (3) Cellulitis of both lower extremities Is this a current diagnosis for this admission?: Yes Plan: Cephalosporin or clindamycin (4) Anasarca Is this a current diagnosis for this admission?: Yes Plan: Improving (5) Morbid obesity with BMI of 40.0-44.9, adult Is this a current diagnosis for this admission?: Yes Plan: When stable consider nutritional consult (6) Tobacco dependence Is this a current diagnosis for this admission?: Yes Plan: Transdermal nicotine - Time Total Critical Time (Minutes): 40
--- NOTE | 2018-12-07 12:47 | PDOC PROGRESS REPORT ---
Subjective Progress Note for:: 12/04/18 Subjective:: Intubated and sedated Reason For Visit: ACUTE RESPIRATORY FAILURE WITH HYPOXIA Physical Exam Vital Signs: Temp Pulse Resp BP Pulse Ox 98.2 F 81 16 108/68 93 12/04/18 08:00 12/04/18 08:32 12/04/18 08:32 12/04/18 08:00 12/04/18 08:32 Intake & Output 12/03/18 12/04/18 12/05/18 06:59 06:59 06:59 Intake Total 2397 2250 100 Output Total 7770 3560 400 Balance -5373 -1310 -300 Weight 120.2 kg 120.2 kg General appearance: PRESENT: no acute distress, disheveled, morbidly obese. ABSENT: cooperative Head exam: PRESENT: atraumatic, normocephalic Eye exam: PRESENT: conjunctiva pale. ABSENT: nystagmus, periorbital swelling, scleral icterus Mouth exam: PRESENT: dry mucosa, neck supple, tongue midline, other - ET tube Neck exam: ABSENT: carotid bruit, full ROM, JVD, lymphadenopathy, meningismus, tenderness, thyromegaly, tracheal deviation, tracheostomy, other Respiratory exam: PRESENT: decreased breath sounds, prolonged expiratory phas, rales, rhonchi, symmetrical, unlabored. ABSENT: retraction, stridor Cardiovascular exam: PRESENT: RRR, +S1, +S2, tachycardia Pulses: PRESENT: normal radial pulses GI/Abdominal exam: PRESENT: hypoactive bowel sounds, soft. ABSENT: mass, tenderness Gentrourinary exam: PRESENT: indwelling catheter Extremities exam: ABSENT: calf tenderness, clubbing, joint swelling, tenderness Musculoskeletal exam: ABSENT: ambulatory, deformity, dislocation Neurological exam: ABSENT: awake Skin exam: PRESENT: dry, warm Results Laboratory Results: 12/04/18 03:21 12/04/18 03:21 12/04/18 12/04/18 12/04/18 03:21 03:21 04:01 WBC 6.8 RBC 4.83 Hgb 12.2 Hct 38.0 MCV 79 L MCH 25.3 L MCHC 32.2 RDW 20.9 H Plt Count 254 Seg Neutrophils % 57.9 Lymphocytes % 31.2 Monocytes % 8.1 Eosinophils % 1.5 Basophils % 1.3 Absolute Neutrophils 3.9 Absolute Lymphocytes 2.1 Absolute Monocytes 0.6 Absolute Eosinophils 0.1 Absolute Basophils 0.1 Carbonic Acid 1.21 HCO3/H2CO3 Ratio 25:1 ABG pH 7.50 H ABG pCO2 40.2 ABG pO2 66.7 L ABG HCO3 30.3 H ABG O2 Saturation 94.6 ABG Base Excess 6.5 FiO2 40% Sodium 135.1 L Potassium 3.7 Chloride 91 L Carbon Dioxide 27 Anion Gap 17 BUN 22 H Creatinine 1.25 Est GFR ( Amer) 59 L Est GFR (Non-Af Amer) 48 L Glucose 73 L Calcium 9.5 Magnesium 2.1 11/25/18 11/25/18 11/25/18 01:58 07:39 07:39 Creatine Kinase 50 CK-MB (CK-2) 0.53 Troponin I < 0.012 < 0.012 NT-Pro-B Natriuret Pep 766 H 11/25/18 11/25/18 11/25/18 12:03 12:03 18:17 Creatine Kinase 37 29 L CK-MB (CK-2) 0.37 Troponin I < 0.012 NT-Pro-B Natriuret Pep 11/25/18 11/26/18 18:17 03:32 Creatine Kinase CK-MB (CK-2) < 0.22 Troponin I < 0.012 NT-Pro-B Natriuret Pep 490 H Impressions: Abdomen Ultrasound 11/25/18 01:12 IMPRESSION: No free fluid identified within the upper quadrants. Evaluation of the lower quadrants was limited due to patient positioning as per the technologist. Head CT 11/27/18 00:00 IMPRESSION: Sinus disease. No acute intracranial imaging findings. EVIDENCE OF ACUTE STROKE: NO. Abdomen/Pelvis CT 12/03/18 00:00 IMPRESSION: Bilateral lower lobe consolidation -atelectasis. No pneumothorax pleural effusion. Endotracheal tube is present with tip 1.3 cm above the level of the kirill. IMPRESSION: Small amount of pelvic free fluid. No bowel dilatation. Chest CT 12/03/18 00:00 IMPRESSION: Bilateral lower lobe consolidation -atelectasis. No pneumothorax pleural effusion. Endotracheal tube is present with tip 1.3 cm above the level of the kirill. IMPRESSION: Small amount of pelvic free fluid. No bowel dilatation. KUB X-Ray 12/03/18 12:02 IMPRESSION: NO RADIOGRAPHIC EVIDENCE FOR ACUTE ABDOMINAL DISEASE.NG tube tip overlies the pyloric region of the stomach. Assessment & Plan - Diagnosis (1) Acute respiratory failure with hypoxia Is this a current diagnosis for this admission?: Yes Plan: She is still requiring elevated PEEP and FiO2 to maintain minimal acceptable SaO2 67/0.4 = 167.5 (2) CHF (congestive heart failure) Qualifiers: Heart failure type: diastolic Is this a current diagnosis for this admission?: Yes Plan: Improving (3) Cellulitis of both lower extremities Is this a current diagnosis for this admission?: Yes Plan: Cephalosporin or clindamycin (4) Anasarca Is this a current diagnosis for this admission?: Yes Plan: Improving (5) Morbid obesity with BMI of 40.0-44.9, adult Is this a current diagnosis for this admission?: Yes Plan: When stable consider nutritional consult (6) Tobacco dependence Is this a current diagnosis for this admission?: Yes Plan: Transdermal nicotine - Time Total Critical Time (Minutes): 45
--- NOTE | 2018-12-07 12:50 | PDOC PROGRESS REPORT ---
Subjective Progress Note for:: 12/03/18 Subjective:: Intubated and sedated Reason For Visit: ACUTE RESPIRATORY FAILURE WITH HYPOXIA Physical Exam Vital Signs: Temp Pulse Resp BP Pulse Ox 98.1 F 68 16 122/81 93 12/03/18 12:00 12/03/18 10:00 12/03/18 12:00 12/03/18 11:56 12/03/18 12:00 Intake & Output 12/02/18 12/03/18 12/04/18 06:59 06:59 06:59 Intake Total 2535 2397 300 Output Total 9880 7770 600 [facility] -7345 -5373 -300 Weight 126.4 kg 120.2 kg General appearance: PRESENT: no acute distress, disheveled, morbidly obese. ABSENT: cooperative Head exam: PRESENT: atraumatic, normocephalic Eye exam: PRESENT: conjunctiva pale. ABSENT: nystagmus, periorbital swelling Mouth exam: PRESENT: dry mucosa, neck supple, tongue midline, other - ET tube Neck exam: ABSENT: carotid bruit, full ROM, JVD, lymphadenopathy, meningismus, tenderness, thyromegaly, tracheal deviation, tracheostomy, other Respiratory exam: PRESENT: decreased breath sounds, prolonged expiratory phas, rales, rhonchi, symmetrical, unlabored. ABSENT: retraction, stridor Cardiovascular exam: PRESENT: RRR, +S1, +S2, tachycardia Pulses: PRESENT: normal radial pulses GI/Abdominal exam: PRESENT: hypoactive bowel sounds, soft. ABSENT: guarding, tenderness Extremities exam: PRESENT: +1 edema. ABSENT: calf tenderness, clubbing, joint swelling, tenderness Musculoskeletal exam: ABSENT: ambulatory, deformity, dislocation Neurological exam: ABSENT: awake Skin exam: PRESENT: dry, warm Results Laboratory Results: 12/03/18 03:33 12/03/18 03:33 12/02/18 12/03/18 12/03/18 15:01 03:33 03:33 WBC 5.2 RBC 4.64 Hgb 11.7 L Hct 36.4 MCV 79 L MCH 25.1 L MCHC 32.0 RDW 20.6 H Plt Count 203 Seg Neutrophils % 59.7 Lymphocytes % 28.2 Monocytes % 10.0 Eosinophils % 0.6 Basophils % 1.5 Absolute Neutrophils 3.1 Absolute Lymphocytes 1.5 Absolute Monocytes 0.5 Absolute Eosinophils 0.0 Absolute Basophils 0.1 Carbonic Acid HCO3/H2CO3 Ratio ABG pH ABG pCO2 ABG pO2 ABG HCO3 ABG O2 Saturation ABG Base Excess FiO2 Sodium 138.9 Potassium 3.8 3.5 L Chloride 94 L Carbon Dioxide 29 Anion Gap 16 BUN 19 Creatinine 1.37 H Est GFR ( Amer) 53 L Est GFR (Non-Af Amer) 44 L Glucose 69 L Calcium 9.5 Magnesium 2.2 12/03/18 04:16 WBC RBC Hgb Hct MCV MCH MCHC RDW Plt Count Seg Neutrophils % Lymphocytes % Monocytes % Eosinophils % Basophils % Absolute Neutrophils Absolute Lymphocytes Absolute Monocytes Absolute Eosinophils Absolute Basophils Carbonic Acid 1.14 HCO3/H2CO3 Ratio 26:1 ABG pH 7.53 H ABG pCO2 37.8 ABG pO2 62.3 L ABG HCO3 30.6 H ABG O2 Saturation 94.1 ABG Base Excess 7.4 FiO2 55% Sodium Potassium Chloride Carbon Dioxide Anion Gap BUN Creatinine Est GFR ( Amer) Est GFR (Non-Af Amer) Glucose Calcium Magnesium 11/25/18 11/25/18 11/25/18 01:58 07:39 07:39 Creatine Kinase 50 CK-MB (CK-2) 0.53 Troponin I < 0.012 < 0.012 NT-Pro-B Natriuret Pep 766 H 11/25/18 11/25/18 11/25/18 12:03 12:03 18:17 Creatine Kinase 37 29 L CK-MB (CK-2) 0.37 Troponin I < 0.012 NT-Pro-B Natriuret Pep 11/25/18 11/26/18 18:17 03:32 Creatine Kinase CK-MB (CK-2) < 0.22 Troponin I < 0.012 NT-Pro-B Natriuret Pep 490 H Impressions: Abdomen Ultrasound 11/25/18 01:12 IMPRESSION: No free fluid identified within the upper quadrants. Evaluation of the lower quadrants was limited due to patient positioning as per the technologist. Abdomen/Pelvis CT 11/25/18 03:36 IMPRESSION: 1. Endotracheal tube with tip in the right mainstem bronchus. Recommend repositioning. 2. Bilateral dependent airspace opacities may be related to atelectasis. Developing pneumonic process or pneumonitis could produce the same appearance. 3. Enlarged right axillary lymph nodes as well as a 2.7 cm inferior right breast nodule. These may be reactive however other etiology not excluded. Correlation with right breast/axillary ultrasound and possible mammography recommended. 4. Body wall anasarca. 5. Small amount of ascites. 6. Hepatic steatosis. 7. Cardiomegaly. This exam was performed according to our departmental dose-optimization program, which includes automated exposure control, adjustment of the mA and/or kV according to patient size and/or use of iterative reconstruction technique. Chest CT 11/27/18 00:00 IMPRESSION: The endotracheal tube remains in low position. The tip of the tube is 1 cm above the kirill. Small pleural effusions. Airspace disease in both lower lobes and in the right middle lobe. Atelectasis versus pneumonia. Cardiomegaly. No adam pulmonary edema. Head CT 11/27/18 00:00 IMPRESSION: Sinus disease. No acute intracranial imaging findings. EVIDENCE OF ACUTE STROKE: NO. KUB X-Ray 12/01/18 00:00 IMPRESSION: NO RADIOGRAPHIC EVIDENCE FOR ACUTE ABDOMINAL DISEASE. Chest X-Ray 12/03/18 06:00 IMPRESSION: Dense bilateral lobe pneumonia left greater than right with probable effusions. No improvement. Vascular congestion. SUPPORT DEVICE(S) IN EXPECTED LOCATIONS. Assessment & Plan - Diagnosis (1) Acute respiratory failure with hypoxia Is this a current diagnosis for this admission?: Yes Plan: She is still requiring elevated PEEP and FiO2 to maintain minimal acceptable SaO2 62.3/.55 = 113.3 (2) CHF (congestive heart failure) Qualifiers: Heart failure type: diastolic Is this a current diagnosis for this admission?: Yes Plan: Improving (3) Cellulitis of both lower extremities Is this a current diagnosis for this admission?: Yes Plan: Cephalosporin or clindamycin (4) Anasarca Is this a current diagnosis for this admission?: Yes Plan: Improving (5) Morbid obesity with BMI of 40.0-44.9, adult Is this a current diagnosis for this admission?: Yes Plan: When stable consider nutritional consult (6) Tobacco dependence Is this a current diagnosis for this admission?: Yes Plan: Transdermal nicotine - Time Total Critical Time (Minutes): 45
[2018-12-07] MEDS: PHARMACY COMMUNICATION ORDER MC SCH (17:01)
[2018-12-07] MEDS: LEVALBUTEROL HCL NEB 0.63 MG/3 ML AMPUL NEB PRN (20:13)
[2018-12-07] MEDS: NICOTINE 21 MG/24 HR PATCH.TD24 TD PRN (21:20)
[2018-12-08] MEDS: PROPOFOL 1,000 MG/100 ML INFUS..BTL IV PRN ×8 (00:13→21:57)
[2018-12-08] MEDS: METOCLOPRAMIDE HCL INJ/PF 10 MG/2 ML SDV IV SCH (00:14)
[2018-12-08 05:04] LABS: ARTERIAL BLOOD BASE EXCESS 1.7 mmol/L; ARTERIAL BLOOD FIO2 45%; ARTERIAL BLOOD H2CO3 1.23 mmol/L (1.05-1.35); ARTERIAL BLOOD HCO3 26.2 mmol/L (20-24); ARTERIAL BLOOD O2 SATURATION 93.9 % (94-98); ARTERIAL BLOOD PCO2 40.7 mmHg (35-45); ARTERIAL BLOOD PH 7.43 (7.35-7.45); ARTERIAL BLOOD PO2 67.7 mmHg (80-100); ARTERIAL BLOOD TOTAL CO2 27.4 mmol/L (21-25)
[2018-12-08 05:36] LABS: ABSOLUTE BASOPHILS # (AUTO) 0.1 10^3/uL (0.0-0.2); ABSOLUTE EOSINOPHILS # (AUTO) 0.2 10^3/uL (0.0-0.6); ABSOLUTE LYMPHOCYTES (AUTO) 1.6 10^3/uL (0.5-4.7); ABSOLUTE MONOCYTES (AUTO) 0.4 10^3/uL (0.1-1.4); ABSOLUTE NEUT (AUTO) 4.5 10^3/uL (1.7-8.2); BASOPHILS % (AUTO) 0.9 % (0-2); EOSINOPHILS % (AUTO) 3.1 % (0-6); HEMATOCRIT 38.2 % (36.0-47.0); HEMOGLOBIN 12.1 g/dL (12.0-15.5); LYMPHOCYTES % (AUTO) 24.2 % (13-45); MEAN CORPUSCULAR HEMOGLOBIN 25.4 pg (27.0-33.4); MEAN CORPUSCULAR HGB CONC 31.7 g/dL (32.0-36.0); MEAN CORPUSCULAR VOLUME 80 fl (80-97); PLATELET COUNT 484 10^3/uL (150-450); RED BLOOD COUNT 4.76 10^6/uL (3.72-5.28); RED CELL DISTRIBUTION WIDTH 20.8 % (11.5-14.0); SEGMENTED NEUTROPHILS % (AUTO) 65.8 % (42-78); TOTAL CELLS COUNTED % (AUTO) 100 %; WHITE BLOOD COUNT 6.8 10^3/uL (4.0-10.5)
[2018-12-08] MEDS: HEPARIN SOD (PORCINE) 5,000 UNIT/ML 1 ML VIAL SUBCUT SCH ×3 (05:45→21:37)
[2018-12-08 05:55] LABS: ALBUMIN 3.9 g/dL (3.5-5.0); ALKALINE PHOSPHATASE 230 U/L (38-126); ANION GAP 17 (5-19); ASPARTATE AMINO TRANSFERASE 55 U/L (14-36); BILIRUBIN,DIRECT 1.6 mg/dL (0.0-0.4); BLOOD UREA NITROGEN 15 mg/dL (7-20); CALCIUM 9.7 mg/dL (8.4-10.2); CARBON DIOXIDE 24 mmol/L (22-30); CHLORIDE 100 mmol/L (98-107); GLUCOSE 87 mg/dL (75-110); POTASSIUM 3.4 mmol/L (3.6-5.0); TOTAL PROTEIN 8.6 g/dL (6.3-8.2)
[2018-12-08] MEDS ORDERED: POTASSI CL 20 MEQ/50 ML RIDER 40 MEQ/100 ML RTUPB IV ONE ×2 (06:22→23:03)
[2018-12-08] MEDS: POTASSIUM CHLORIDE 20 MEQ/50 ML RTU IV SCH ×3 (06:29→23:11)
--- NOTE | 2018-12-08 08:09 | RADIOLOGY REPORT (SQ) ---
EXAM DESCRIPTION: CHEST SINGLE VIEW COMPLETED DATE/TIME: 12/08/2018 7:08 am REASON FOR STUDY: pna/resp failure COMPARISON: 12/07/2018 NUMBER OF VIEWS: One view. TECHNIQUE: Single frontal radiographic image of the chest acquired. LIMITATIONS: None. FINDINGS: LUNGS AND PLEURA: Lung [place] are grossly stable in appearance. There is a subtle lucency now noted in the right lung apex possibly artifact from something overlying the patient. Small righ t apical pneumothorax cannot entirely be excluded. MEDIASTINUM AND HILAR STRUCTURES: Stable heart size and mediastinal structures. HEART AND VASCULAR STRUCTURES: Stable appearance. SUPPORT DEVICES: Appropriate location without change. BONES: No acute findings. OTHER: No other significant finding. IMPRESSION: Subtle lucency is now noted in the right apex as described. Possibly artifact from some thing overlying the right apex. Small right apical pneumothorax cannot entirely be excluded. TECHNICAL DOCUMENTATION: JOB ID: [id number] [employer]- All Rights Reserved Reading location - IP/workstation name: [email or web address]
[2018-12-08] MEDS: LEVALBUTEROL HCL NEB 1.25 MG/3 ML AMPUL NEB SCH ×3 (08:29→23:39)
[2018-12-08] MEDS: BUDESONIDE NEB 0.5 MG/2 ML AMPUL NEB SCH ×2 (08:29→20:24)
[2018-12-08] MEDS: IPRATROPIUM BROMIDE 0.02% NEB 0.5 MG/2.5 ML AMPUL NEB SCH ×3 (08:29→23:39)
[2018-12-08] MEDS: MIDAZOLAM HCL 50 MG/100 ML RTUINJ IV PRN ×3 (08:31→23:47)
[2018-12-08] MEDS: PANTOT AC/MIN OIL/PET HY-PHL OINT 50 GM TOP SCH ×2 (10:18→21:37)
[2018-12-08] MEDS: THIAMINE HCL 100 MG in NORMAL SALINE 50 ML IV SCH (10:18)
[2018-12-08] MEDS: FUROSEMIDE INJ/PF 40 MG/4 ML SDV IV SCH ×2 (10:18→21:37)
[2018-12-08] MEDS: PANTOPRAZOLE SODIUM 40 MG VIAL IV SCH (10:18)
[2018-12-08] MEDS: MULTIVITAMIN ORAL LIQUID 60 ML NG SCH (10:19)
--- NOTE | 2018-12-08 12:27 | EKG REPORT ---
SEVERITY:- ABNORMAL ECG - SINUS RHYTHM INCOMPLETE RIGHT BUNDLE BRANCH BLOCK NONSPECIFIC T ABNORMALITIES, LATERAL LEADS BORDERLINE PROLONGED QT INTERVAL : Confirmed by: Venus Winkler MD 08-Dec-2018 12:26:20
[2018-12-08] MEDS: CEFTRIAXONE 1 GM/D5W RTU 1 GM/50 ML RTUPB IV SCH (12:40)
--- NOTE | 2018-12-08 16:22 | PDOC PROGRESS REPORT ---
Subjective Progress Note for:: 12/08/18 Subjective:: The patient is currently weaning on pressure support but requires almost full sedation to tolerate it. No other issues reported. Reason For Visit: ACUTE RESPIRATORY FAILURE WITH HYPOXIA Physical Exam Vital Signs: Temp Pulse Resp BP Pulse Ox 99.9 F 89 15 107/63 94 12/08/18 15:00 12/08/18 15:42 12/08/18 15:42 12/08/18 14:50 12/08/18 15:42 Intake & Output 12/07/18 12/08/18 12/09/18 06:59 06:59 06:59 Intake Total 971 1414 384 Output Total 1900 1540 815 Balance -920 -404 -496 Weight 117.1 kg 115.6 kg General appearance: PRESENT: no acute distress, morbidly obese, well-developed, well-nourished. ABSENT: cooperative - Intubated and sedated Head exam: PRESENT: atraumatic, normocephalic Ear exam: PRESENT: normal external ear exam. ABSENT: bleeding, drainage Mouth exam: PRESENT: other - Endotracheal and orogastric tubes in place Neck exam: PRESENT: other - Very large neck Respiratory exam: PRESENT: decreased breath sounds - Both bases, rales - Faint rales at bases, symmetrical, unlabored. ABSENT: rhonchi, tachypnea, wheezes Cardiovascular exam: PRESENT: RRR, +S1, +S2, other - Distant heart sounds due to body habitus GI/Abdominal exam: PRESENT: diminished bowel sounds, soft, other - Protuberant abdomen. ABSENT: tenderness Rectal exam: PRESENT: deferred Gentrourinary exam: PRESENT: indwelling catheter Musculoskeletal exam: ABSENT: ambulatory Neurological exam: ABSENT: awake Psychiatric exam: ABSENT: agitated Focused psych exam: ABSENT: restlessness Results Laboratory Results: 12/08/18 05:02 12/08/18 05:02 12/08/18 12/08/18 12/08/18 04:50 05:02 05:02 WBC 6.8 RBC 4.76 Hgb 12.1 Hct 38.2 MCV 80 MCH 25.4 L MCHC 31.7 L RDW 20.8 H Plt Count 484 H Seg Neutrophils % 65.8 Carbonic Acid 1.23 HCO3/H2CO3 Ratio 21:1 ABG pH 7.43 ABG pCO2 40.7 ABG pO2 67.7 L ABG HCO3 26.2 H ABG O2 Saturation 93.9 L ABG Base Excess 1.7 FiO2 45% Sodium 141.3 Potassium 3.4 L Chloride 100 Carbon Dioxide 24 Anion Gap 17 BUN 15 Creatinine 0.78 Est GFR ( Amer) > 60 Glucose 87 Calcium 9.7 Magnesium 1.8 Total Bilirubin 2.0 H AST 55 H Alkaline Phosphatase 230 H Total Protein 8.6 H Albumin 3.9 12/05/18 10:15 Bronchial Washings AFB Smear Concentration - Final 12/05/18 10:15 Bronchial Washings Acid Fast Bacilli Smear - Final 11/25/18 11/25/18 11/25/18 01:58 07:39 07:39 Creatine Kinase 50 CK-MB (CK-2) 0.53 Troponin I < 0.012 < 0.012 NT-Pro-B Natriuret Pep 766 H 11/25/18 11/25/18 11/25/18 12:03 12:03 18:17 Creatine Kinase 37 29 L CK-MB (CK-2) 0.37 Troponin I < 0.012 NT-Pro-B Natriuret Pep 11/25/18 11/26/18 18:17 03:32 Creatine Kinase CK-MB (CK-2) < 0.22 Troponin I < 0.012 NT-Pro-B Natriuret Pep 490 H Impressions: Abdomen Ultrasound 11/25/18 01:12 IMPRESSION: No free fluid identified within the upper quadrants. Evaluation of the lower quadrants was limited due to patient positioning as per the technologist. Head CT 11/27/18 00:00 IMPRESSION: Sinus disease. No acute intracranial imaging findings. EVIDENCE OF ACUTE STROKE: NO. Abdomen/Pelvis CT 12/03/18 00:00 IMPRESSION: Bilateral lower lobe consolidation -atelectasis. No pneumothorax pleural effusion. Endotracheal tube is present with tip 1.3 cm above the level of the kirill. IMPRESSION: Small amount of pelvic free fluid. No bowel dilatation. Chest CT 12/03/18 00:00 IMPRESSION: Bilateral lower lobe consolidation -atelectasis. No pneumothorax pleural effusion. Endotracheal tube is present with tip 1.3 cm above the level of the kirill. IMPRESSION: Small amount of pelvic free fluid. No bowel dilatation. KUB X-Ray 12/03/18 12:02 IMPRESSION: NO RADIOGRAPHIC EVIDENCE FOR ACUTE ABDOMINAL DISEASE.NG tube tip ov erlies the pyloric region of the stomach. Chest X-Ray 12/08/18 06:00 IMPRESSION: Subtle lucency is now noted in the right apex as described. Possibly artifact from something overlying the right apex. Small right apical pneumothorax cannot entirely be excluded. Assessment and Plan - Diagnosis (1) Sepsis Qualifiers: Sepsis type: sepsis due to unspecified organism Sepsis acute organ dysfunction status: unspecified Qualified Code(s): A41.9 - Sepsis, unspecified organism Is this a current diagnosis for this admission?: Yes Plan: 12/05/2018-sepsis most likely due to pneumonia. The patient did undergo bronchoscopy today and cultures are pending. She is no longer hypotensive. Antibiotic therapy is completed. Sepsis resolved 12/06/2018-resolved 12/09/2018-continues to improve. Patient did show Klebsiella in her bronchial washings. She is on Rocephin at this time. We will continue to follow (2) Acute respiratory failure with hypoxia Is this a current diagnosis for this admission?: Yes Plan: 12/05/2018-the patient remains intubated and sedated. Currently on SIMV with a tidal volume of 500, PEEP 10, respiratory rate 16 and FiO2 50%. The patient did undergo bronchoscopy today. Bronchial washings were sent for culture. We will continue to attempt weaning daily. 12/06/2018-the patient remains intubated. Weaning trials are ongoing. The patient did undergo bronchoscopy yesterday. Bronchial washings are growing gram-negative bacilli. Her white blood cell count is normal and she is afebrile. It is possible that there is no occult infection inhibiting weaning. We should have a tentative identification tomorrow. I will then discuss with pulmonology a need to treat or not. We will otherwise continue pulmonary treatments. 12/07/2018-the patient still has high peak pressures and has failed weaning trials. She gets tachypneic and somewhat agitated. As it is unlikely she will be able to be extubated I am going to discuss with her aunt the next step which would be PEG tube, tracheostomy and placement. Finding a facility for long-term vent weaning will likely lead to searching out of state. The bronchial washings did culture positive for Klebsiella. She has been started on Rocephin. 12/08/2018-she still exhibits high peak pressures today. She is actually weaning nicely but this requires sedation. She is at the point where a decision needs to be made regarding tracheostomy. I will discuss this with her aunt today. 12/09/2018-patient remains on ventilator. Peak pressures have went to normal. She still gets tachypneic and agitated when sedation is removed. It is unlikely patient will be extubated at which point patient will most likely receive a trach and PEG. At that point we will start looking for a long-term vent weaning facility. Bronchial washings were positive for Klebsiella and she is on Rocephin. (3) Alcoholism Is this a current diagnosis for this admission?: Yes Plan: 12/05/2018-the patient should be passed any window for withdrawal. Will need to encourage alcohol cessation with outpatient treatment if she survives this episode. 12/06/2018-past the window of withdrawal. Would benefit from cessation and a support group post recovery 12/07/2018-certainly a contributing factor to her poor health. Encourage patient support group if the patient survives. 12/08/2018-as above. No change in plan. 12/09/2018-most likely contributed to her poor health. Encourage support group if patient survives this event. (4) Acute kidney injury Is this a current diagnosis for this admission?: Yes Plan: 12/05/2018-the patient has exhibited a marked loss in weight with significant diuresis. She is net negative almost 10 L. She continues on a furosemide infusion. Dr. Johnson reports that she will likely change from a continuous furosemide infusion to intermittent dosing. Serum creatinine is down to 0.95. 12/06/2018-acute kidney injury has resolved. 12/07/2018-initial injury has resolved. Continue to monitor renal function. 12/08/2018-resolved. Continue to monitor with daily blood work 12/09/2018-has resolved so far. Continue to follow renal function. (5) Cocaine use Is this a current diagnosis for this admission?: Yes Plan: 12/05/2018-toxicology screen was positive for cocaine on admission. The patient is past the window of any withdrawal. Will need to encourage cessation with outpatient rehab. The patient has exhibited marked noncompliance in the past. 12/06/2018-try to encourage an addiction support program as an outpatient 12/07/2018-May contributing factor to her recurrent illness he is and poor ability to recover. If the patient survives hopefully she will participate in a drug abuse treatment program. 12/08/2018-as above 12/09/2018-if patient provides event drug abuse treatment program would be beneficial (6) Pneumonia Qualifiers: Pneumonia type: due to unspecified organism Laterality: bilateral Lung location: lower lobe of lung Qualified Code(s): J18.1 - Lobar pneumonia, unspecified organism Is this a current diagnosis for this admission?: Yes Plan: 12/05/2018-bilateral airspace disease. The patient completed therapy with Zosyn. White count has normalized. Still trying to wean from ventilator. Bronchoscopy performed today. Bronchial washings sent for culture to assess for any remaining infection. 12/06/2018-the patient did complete a course of Zosyn. Her white count remains normal however the bronchoscopy washings are growing gram-negative bacilli. I will await more information tomorrow and discuss with pulmonology. This may require antibiotic therapy and certainly could be causing slow weaning. 12/07/2018-the patient did undergo initial treatment with Zosyn for pneumonia. Bronchoscopy 48 hours ago supplied washings for culture. Klebsiella was isolated. It is sensitive to Rocephin and so the patient is on ceftriaxone. 12/08/2018-complete ceftriaxone as ordered 12/09/2018-bronchoscopy washings showed Klebsiella patient is on Rocephin. (7) Anasarca Is this a current diagnosis for this admission?: Yes Plan: 12/05/2018-continued improvement with a net negative fluid loss of over 10 L and commensurate weight loss. The patient is currently on infusion of furosemide. Nephrology reports that they will be changing to scheduled dosing and discontinuing the infusion in the next 24 to 48 hours. 12/06/2018-significant improvement from admission. Dr. Johnson has stopped the furosemide infusion and the patient is now on 40 mg IV every 12 hours. We will continue to monitor electrolytes, blood pressure and renal function. We will try and avoid a net positive fluid balance. 12/07/2018-resolved. The patient is currently on 40 mg of furosemide twice daily. We will monitor her intake and output and consider 20 mg twice daily and try to maintain normovolemia 12/08/2018-no change in treatment plan today 12/09/2018-improved. Patient remains on 40 mg IV Lasix twice daily. Will follow urine output and weight. (8) Anemia Qualifiers: Anemia type: iron deficiency Iron deficiency anemia type: inadequate dietary iron intake Qualified Code(s): D50.8 - Other iron deficiency anemias Is this a current diagnosis for this admission?: Yes Plan: 12/05/2018-hemoglobin today was 12.0. We will continue to monitor. No evidence of blood loss. 12/06/2018-hemoglobin remains stable. Monitor for blood loss. 12/07/2018-it appears that her critical illness anemia is recovering. 12/08/2018-currently with normal stable hemoglobin. Continue to monitor. 12/09/2018-resolved. Continue to follow daily CBCs (9) Hyperbilirubinemia Is this a current diagnosis for this admission?: Yes Plan: 12/05/2018-total bilirubin is down to 1.9. This is improved from a total bilirubin greater than 4.0 last week. Acute liver injury secondary to sepsis. Continue to monitor liver function. 12/06/2018-as noted above total bilirubin was down to 1.9. I will recheck liver chemistries in several days. 12/07/2018-we will recheck bilirubin tomorrow. 12/08/2018-bilirubin remains elevated today. It is down to 2.0. Continue to monitor. 12/09/2018-total bili remains 2.0 today we will repeat LFTs in the a.m. (10) Elevated LFTs Is this a current diagnosis for this admission?: Yes Plan: 12/05/2018-as noted above acute hepatic injury due to sepsis. Liver chemistries improving. Continue to monitor. 12/06/2018-as noted above we will monitor liver chemistries every several days. Blood work continues to improve. 12/07/2018-we will recheck liver chemistries tomorrow. 12/08/2018-bilirubin and alkaline phosphatase still remain elevated. Continue to monitor. I expect that these will recover over time. 12/09/2018-recheck liver chemistries tomorrow. (11) Breast mass in female Is this a current diagnosis for this admission?: Yes Plan: 12/05/2018-breast mass noted during imaging for pneumonia. The patient will need outpatient work-up. 12/06/2018-continue work-up as an outpatient 12/07/2018-consideration should be given of the possibility of malignancy. This could contribute to decision-making with regard to ongoing aggressive treatment. 12/08/2018-no acute intervention at this time 12/09/2018-will follow. Consideration of possible malignancy. (12) CHF (congestive heart failure) Qualifiers: Heart failure type: diastolic Is this a current diagnosis for this admission?: Yes Plan: 12/05/2018-the patient had an echocardiogram earlier this year. Her ejection fraction was 65 and she exhibited 1/4 diastolic dysfunction. We will continue management as outlined above. 12/06/2018-we will continue to monitor. With changes in medication will consider adding an LEONARDA inhibitor, angiotensin receptor tess and or Aldactone. Currently congestive heart failure is present but stable. We will begin to modify therapy as the patient recovers. 12/07/2018-does not appear that heart failure is a clinical concern at this time. Infection and dependent atelectasis as well as her morbid obesity appear to be the primary drivers for inability to extubate the patient. 12/08/2018-continue the same regimen at this time. 12/09/2018-improved stable. Patient continues on Lasix 40 mg IV twice daily. Patient continues to be ventilated with ET tube. Most likely dependent atelectasis, infection and immobility along with her morbid obesity are primary cause for inability to extubate. Most likely will receive trach and PEG. (13) Morbid obesity with BMI of 40.0-44.9, adult Is this a current diagnosis for this admission?: Yes Plan: 12/05/2018-the patient is morbidly obese. Her BMI is 43. This could be causing morbid obesity hypoventilation making it difficult to wean her from the vent. She will benefit from weight loss. The noncompliance she has exhibited with regard to medications and her health in general makes it unlikely that she will comply with a weight loss diet. 12/06/2018-as above 12/07/2018-I believe the morbid obesity is clearly contributing to the difficulty in weaning. 12/08/2018-as above 12/09/2018-morbid obesity is contributing factor for difficulty in weaning patient continue to follow - Time Time Spent with patient: 15-24 minutes Medications reviewed and adjusted accordingly: Yes Anticipated discharge: Other - With a tracheostomy and PEG tube the patient will need to transfer to a long-term acute hospital.
[2018-12-08] MEDS: PHARMACY COMMUNICATION ORDER MC SCH (17:24)
[2018-12-08] MEDS: CHLORPROMAZINE HCL INJ 25 MG/1 ML AMPULE IV PRN (19:40)
[2018-12-08 22:52] LABS: POTASSIUM 3.3 mmol/L (3.6-5.0)
[2018-12-09] MEDS: PROPOFOL 1,000 MG/100 ML INFUS..BTL IV PRN ×8 (00:40→23:15)
[2018-12-09] MEDS: POTASSIUM CHLORIDE 20 MEQ/50 ML RTU IV SCH (01:15)
[2018-12-09 03:52] LABS: ABSOLUTE BASOPHILS # (AUTO) 0.1 10^3/uL (0.0-0.2); ABSOLUTE EOSINOPHILS # (AUTO) 0.2 10^3/uL (0.0-0.6); ABSOLUTE LYMPHOCYTES (AUTO) 1.5 10^3/uL (0.5-4.7); ABSOLUTE MONOCYTES (AUTO) 0.5 10^3/uL (0.1-1.4); ABSOLUTE NEUT (AUTO) 3.6 10^3/uL (1.7-8.2); BASOPHILS % (AUTO) 1.5 % (0-2); EOSINOPHILS % (AUTO) 3.4 % (0-6); HEMATOCRIT 38.6 % (36.0-47.0); HEMOGLOBIN 12.1 g/dL (12.0-15.5); LYMPHOCYTES % (AUTO) 25.8 % (13-45); MEAN CORPUSCULAR HEMOGLOBIN 25.3 pg (27.0-33.4); MEAN CORPUSCULAR HGB CONC 31.4 g/dL (32.0-36.0); MEAN CORPUSCULAR VOLUME 81 fl (80-97); PLATELET COUNT 559 10^3/uL (150-450); RED BLOOD COUNT 4.78 10^6/uL (3.72-5.28); RED CELL DISTRIBUTION WIDTH 21.1 % (11.5-14.0); SEGMENTED NEUTROPHILS % (AUTO) 61.3 % (42-78); TOTAL CELLS COUNTED % (AUTO) 100 %; WHITE BLOOD COUNT 5.9 10^3/uL (4.0-10.5)
[2018-12-09 04:08] LABS: ANION GAP 16 (5-19); BLOOD UREA NITROGEN 15 mg/dL (7-20); CALCIUM 9.7 mg/dL (8.4-10.2); CARBON DIOXIDE 21 mmol/L (22-30); CHLORIDE 105 mmol/L (98-107); GLUCOSE 114 mg/dL (75-110); POTASSIUM 3.8 mmol/L (3.6-5.0)
[2018-12-09] MEDS: HEPARIN SOD (PORCINE) 5,000 UNIT/ML 1 ML VIAL SUBCUT SCH ×3 (06:41→22:10)
[2018-12-09 06:56] LABS: ARTERIAL BLOOD BASE EXCESS -1.3 mmol/L; ARTERIAL BLOOD HCO3 22.2 mmol/L (20-24); ARTERIAL BLOOD PCO2 33.3 mmHg (35-45); ARTERIAL BLOOD PH 7.44 (7.35-7.45); ARTERIAL BLOOD PO2 77.6 mmHg (80-100); ARTERIAL BLOOD TOTAL CO2 23.2 mmol/L (21-25)
[2018-12-09 06:57] LABS: ARTERIAL BLOOD FIO2 40%
[2018-12-09] MEDS: IPRATROPIUM BROMIDE 0.02% NEB 0.5 MG/2.5 ML AMPUL NEB SCH ×2 (08:17→15:42)
[2018-12-09] MEDS: LEVALBUTEROL HCL NEB 1.25 MG/3 ML AMPUL NEB SCH ×2 (08:17→15:42)
[2018-12-09] MEDS: BUDESONIDE NEB 0.5 MG/2 ML AMPUL NEB SCH ×2 (08:17→19:42)
--- NOTE | 2018-12-09 09:26 | RADIOLOGY REPORT (SQ) ---
EXAM DESCRIPTION: CHEST SINGLE VIEW COMPLETED DATE/TIME: 12/09/2018 6:06 am REASON FOR STUDY: pna/resp failure COMPARISON: 12/08/2018 NUMBER OF VIEWS: One view. TECHNIQUE: Single frontal radiographic image of the chest acquired. LIMITATIONS: None. FINDINGS: LUNGS AND PLEURA: Improved aeration in the left base. No pneumothorax. MEDIASTINUM AND HILAR STRUCTURES: Stable heart size and mediastinal structures. HEART AND VASCULAR STRUCTURES: Stable appearance. SUPPORT DEVICES: Appropriate location without change. BONES: No acute findings. OTHER: No other significant finding. IMPRESSION: Slight improvement. No pneumothorax. TECHNICAL DOCUMENTATION: JOB ID: [id number] [employer]- All Rights Reserved Reading location - IP/workstation name: [email or web address]
[2018-12-09] MEDS: THIAMINE HCL 100 MG in NORMAL SALINE 50 ML IV SCH (10:22)
[2018-12-09] MEDS: PANTOPRAZOLE SODIUM 40 MG VIAL IV SCH (10:22)
[2018-12-09] MEDS: PANTOT AC/MIN OIL/PET HY-PHL OINT 50 GM TOP SCH ×2 (10:22→22:10)
[2018-12-09] MEDS: MULTIVITAMIN ORAL LIQUID 60 ML NG SCH (10:22)
[2018-12-09] MEDS: FUROSEMIDE INJ/PF 40 MG/4 ML SDV IV SCH ×2 (10:22→22:11)
[2018-12-09] MEDS: MIDAZOLAM HCL 50 MG/100 ML RTUINJ IV PRN (10:24)
--- NOTE | 2018-12-09 10:47 | PDOC PROGRESS REPORT ---
Subjective Progress Note for:: 12/09/18 Subjective:: 12/09/2018-intubated and sedated Reason For Visit: ACUTE RESPIRATORY FAILURE WITH HYPOXIA Physical Exam Vital Signs: Temp Pulse Resp BP Pulse Ox 97.5 F 77 14 108/80 97 12/09/18 08:00 12/09/18 08:23 12/09/18 08:23 12/09/18 08:00 12/09/18 08:23 Intake & Output 12/08/18 12/09/18 12/10/18 06:59 06:59 06:59 Intake Total 1414 1323 200 Output Total 1540 1915 50 Balance -126 -592 150 Weight 115.6 kg 115.3 kg General appearance: PRESENT: no acute distress, well-developed, well-nourished Neck exam: ABSENT: carotid bruit, JVD, lymphadenopathy, thyromegaly Respiratory exam: PRESENT: rhonchi, symmetrical, unlabored, wheezes, other - Ventilated Cardiovascular exam: PRESENT: RRR. ABSENT: diastolic murmur, rubs, systolic murmur Pulses: PRESENT: normal dorsalis pedis pul Vascular exam: PRESENT: normal capillary refill GI/Abdominal exam: PRESENT: normal bowel sounds, soft. ABSENT: distended, guarding, mass, organolmegaly, rebound, tenderness Extremities exam: PRESENT: full ROM. ABSENT: calf tenderness, clubbing, pedal edema Neurological exam: PRESENT: other - Intubated and sedated Psychiatric exam: PRESENT: other - Intubated and sedated Skin exam: PRESENT: dry, intact, warm. ABSENT: cyanosis, rash Adult Front & Back Image: 1 - ET tube and NG tube 2 - Blank Results Laboratory Results: 12/09/18 03:34 12/09/18 03:34 12/08/18 12/09/18 12/09/18 22:22 03:34 03:34 WBC 5.9 RBC 4.78 Hgb 12.1 Hct 38.6 MCV 81 MCH 25.3 L MCHC 31.4 L RDW 21.1 H Plt Count 559 H Seg Neutrophils % 61.3 Carbonic Acid HCO3/H2CO3 Ratio ABG pH ABG pCO2 ABG pO2 ABG HCO3 ABG O2 Saturation ABG Base Excess FiO2 Sodium 142.0 Potassium 3.3 L 3.8 Chloride 105 Carbon Dioxide 21 L Anion Gap 16 BUN 15 Creatinine 0.76 Est GFR ( Amer) > 60 Glucose 114 H Calcium 9.7 Magnesium 1.7 1.7 12/09/18 06:30 WBC RBC Hgb Hct MCV MCH MCHC RDW Plt Count Seg Neutrophils % Carbonic Acid 1.00 L HCO3/H2CO3 Ratio 22:1 ABG pH 7.44 ABG pCO2 33.3 L ABG pO2 77.6 L ABG HCO3 22.2 ABG O2 Saturation 96.0 ABG Base Excess -1.3 FiO2 40% Sodium Potassium Chloride Carbon Dioxide Anion Gap BUN Creatinine Est GFR ( Amer) Glucose Calcium Magnesium 11/25/18 11/25/18 11/25/18 01:58 07:39 07:39 Creatine Kinase 50 CK-MB (CK-2) 0.53 Troponin I < 0.012 < 0.012 NT-Pro-B Natriuret Pep 766 H 11/25/18 11/25/18 11/25/18 12:03 12:03 18:17 Creatine Kinase 37 29 L CK-MB (CK-2) 0.37 Troponin I < 0.012 NT-Pro-B Natriuret Pep 11/25/18 11/26/18 18:17 03:32 Creatine Kinase CK-MB (CK-2) < 0.22 Troponin I < 0.012 NT-Pro-B Natriuret Pep 490 H Impressions: Abdomen Ultrasound 11/25/18 01:12 IMPRESSION: No free fluid identified within the upper quadrants. Evaluation of the lower quadrants was limited due to patient positioning as per the technologist. Head CT 11/27/18 00:00 IMPRESSION: Sinus disease. No acute intracranial imaging findings. EVIDENCE OF ACUTE STROKE: NO. Abdomen/Pelvis CT 12/03/18 00:00 IMPRESSION: Bilateral lower lobe consolidation -atelectasis. No pneumothorax pleural effusion. Endotracheal tube is present with tip 1.3 cm above the level of the kirill. IMPRESSION: Small amount of pelvic free fluid. No bowel dilatation. Chest CT 12/03/18 00:00 IMPRESSION: Bilateral lower lobe consolidation -atelectasis. No pneumothorax pleural effusion. Endotracheal tube is present with tip 1.3 cm above the level of the kirill. IMPRESSION: Small amount of pelvic free fluid. No bowel dilatation. KUB X-Ray 12/03/18 12:02 IMPRESSION: NO RADIOGRAPHIC EVIDENCE FOR ACUTE ABDOMINAL DISEASE.NG tube tip overlies the pyloric region of the stomach. Chest X-Ray 12/09/18 06:00 IMPRESSION: Slight improvement. No pneumothorax. Assessment and Plan - Diagnosis (1) Sepsis Qualifiers: Sepsis type: sepsis due to unspecified organism Sepsis acute organ dysfunction status: unspecified Qualified Code(s): A41.9 - Sepsis, unspecified organism Is this a current diagnosis for this admission?: Yes Plan: 12/05/2018-sepsis most likely due to pneumonia. The patient did undergo bronchoscopy today and cultures are pending. She is no longer hypotensive. Antibiotic therapy is completed. Sepsis resolved 12/06/2018-resolved 12/09/2018-continues to improve. Patient did show Klebsiella in her bronchial washings. She is on Rocephin at this time. We will continue to follow (2) Acute respiratory failure with hypoxia Is this a current diagnosis for this admission?: Yes Plan: 12/05/2018-the patient remains intubated and sedated. Currently on SIMV with a tidal volume of 500, PEEP 10, respiratory rate 16 and FiO2 50%. The patient did undergo bronchoscopy today. Bronchial washings were sent for culture. We will continue to attempt weaning daily. 12/06/2018-the patient remains intubated. Weaning trials are ongoing. The patient did undergo bronchoscopy yesterday. Bronchial washings are growing gr am-negative bacilli. Her white blood cell count is normal and she is afebrile. It is possible that there is no occult infection inhibiting weaning. We should have a tentative identification tomorrow. I will then discuss with pulmonology a need to treat or not. We will otherwise continue pulmonary treatments. 12/07/2018-the patient still has high peak pressures and has failed weaning trials. She gets tachypneic and somewhat agitated. As it is unlikely she will be able to be extubated I am going to discuss with her aunt the next step which would be PEG tube, tracheostomy and placement. Finding a facility for long-term vent weaning will likely lead to searching out of state. The bronchial washings did culture positive for Klebsiella. She has been started on Rocephin. 12/09/2018-patient remains on ventilator. Peak pressures have went to normal. She still gets tachypneic and agitated when sedation is removed. It is unlikely patient will be extubated at which point patient will most likely receive a trach and PEG. At that point we will start looking for a long-term vent weaning facility. Bronchial washings were positive for Klebsiella and she is on Rocephin. (3) Alcoholism Is this a current diagnosis for this admission?: Yes Plan: 12/05/2018-the patient should be passed any window for withdrawal. Will need to encourage alcohol cessation with outpatient treatment if she survives this episode. 12/06/2018-past the window of withdrawal. Would benefit from cessation and a support group post recovery 12/07/2018-certainly a contributing factor to her poor health. Encourage patient support group if the patient survives. 12/09/2018-most likely contributed to her poor health. Encourage support group if patient survives this event. (4) Acute kidney injury Is this a current diagnosis for this admission?: Yes Plan: 12/05/2018-the patient has exhibited a marked loss in weight with significant diuresis. She is net negative almost 10 L. She continues on a furosemide infusion. Dr. Johnson reports that she will likely change from a continuous furosemide infusion to intermittent dosing. Serum creatinine is down to 0.95. 12/06/2018-acute kidney injury has resolved. 12/07/2018-initial injury has resolved. Continue to monitor renal function. 12/09/2018-has resolved so far. Continue to follow renal function. (5) Cocaine use Is this a current diagnosis for this admission?: Yes Plan: 12/05/2018-toxicology screen was positive for cocaine on admission. The patient is past the window of any withdrawal. Will need to encourage cessation with outpatient rehab. The patient has exhibited marked noncompliance in the past. 12/06/2018-try to encourage an addiction support program as an outpatient 12/07/2018-May contributing factor to her recurrent illness he is and poor ability to recover. If the patient survives hopefully she will participate in a drug abuse treatment program. 12/09/2018-if patient provides event drug abuse treatment program would be beneficial (6) Pneumonia Qualifiers: Pneumonia type: due to unspecified organism Laterality: bilateral Lung location: lower lobe of lung Qualified Code(s): J18.1 - Lobar pneumonia, uns pecified organism Is this a current diagnosis for this admission?: Yes Plan: 12/05/2018-bilateral airspace disease. The patient completed therapy with Zosyn. White count has normalized. Still trying to wean from ventilator. Bronchoscopy performed today. Bronchial washings sent for culture to assess for any remaining infection. 12/06/2018-the patient did complete a course of Zosyn. Her white count remains normal however the bronchoscopy washings are growing gram-negative bacilli. I will await more information tomorrow and discuss with pulmonology. This may require antibiotic therapy and certainly could be causing slow weaning. 12/07/2018-the patient did undergo initial treatment with Zosyn for pneumonia. Bronchoscopy 48 hours ago supplied washings for culture. Klebsiella was isolated. It is sensitive to Rocephin and so the patient is on ceftriaxone. 12/09/2018-bronchoscopy washings showed Klebsiella patient is on Rocephin. (7) Anasarca Is this a current diagnosis for this admission?: Yes Plan: 12/05/2018-continued improvement with a net negative fluid loss of over 10 L and commensurate weight loss. The patient is currently on infusion of furosemide. Nephrology reports that they will be changing to scheduled dosing and discontinuing the infusion in the next 24 to 48 hours. 12/06/2018-significant improvement from admission. Dr. Johnson has stopped the furosemide infusion and the patient is now on 40 mg IV every 12 hours. We will continue to monitor electrolytes, blood pressure and renal function. We will try and avoid a net positive fluid balance. 12/07/2018-resolved. The patient is currently on 40 mg of furosemide twice daily. We will monitor her intake and output and consider 20 mg twice daily and try to maintain normovolemia 12/09/2018-improved. Patient remains on 40 mg IV Lasix twice daily. Will follow urine output and weight. (8) Anemia Qualifiers: Anemia type: iron deficiency Iron deficiency anemia type: inadequate dietary iron intake Qualified Code(s): D50.8 - Other iron deficiency anemias Is this a current diagnosis for this admission?: Yes Plan: 12/05/2018-hemoglobin today was 12.0. We will continue to monitor. No evidence of blood loss. 12/06/2018-hemoglobin remains stable. Monitor for blood loss. 12/07/2018-it appears that her critical illness anemia is recovering. 12/09/2018-resolved. Continue to follow daily CBCs (9) Hyperbilirubinemia Is this a current diagnosis for this admission?: Yes Plan: 12/05/2018-total bilirubin is down to 1.9. This is improved from a total bilirubin greater than 4.0 last week. Acute liver injury secondary to sepsis. Continue to monitor liver function. 12/06/2018-as noted above total bilirubin was down to 1.9. I will recheck liver chemistries in several days. 12/07/2018-we will recheck bilirubin tomorrow. 12/09/2018-total bili remains 2.0 today we will repeat LFTs in the a.m. (10) Elevated LFTs Is this a current diagnosis for this admission?: Yes Plan: 12/05/2018-as noted above acute hepatic injury due to sepsis. Liver chemistries improving. Continue to monitor. 12/06/2018-as noted above we will monitor liver chemistries every several days. Blood work continues to improve. 12/07/2018-we will recheck liver chemistries tomorrow. 12/09/2018-recheck liver chemistries tomorrow. (11) Breast mass in female Is this a current diagnosis for this admission?: Yes Plan: 12/05/2018-breast mass noted during imaging for pneumonia. The patient will need outpatient work-up. 12/06/2018-continue work-up as an outpatient 12/07/2018-consideration should be given of the possibility of malignancy. This could contribute to decision-making with regard to ongoing aggressive treatment. 12/09/2018-will follow. Consideration of possible malignancy. (12) CHF (congestive heart failure) Qualifiers: Heart failure type: diastolic Is this a current diagnosis for this admission?: Yes Plan: 12/05/2018-the patient had an echocardiogram earlier this year. Her ejection fraction was 65 and she exhibited 1/4 diastolic dysfunction. We will continue management as outlined above. 12/06/2018-we will continue to monitor. With changes in medication will consider adding an LEONARDA inhibitor, angiotensin receptor tess and or Aldactone. Currently congestive heart failure is present but stable. We will begin to modify therapy as the patient recovers. 12/07/2018-does not appear that heart failure is a clinical concern at this time. Infection and dependent atelectasis as well as her morbid obesity appear to be the primary drivers for inability to extubate the patient. 12/09/2018-improved stable. Patient continues on Lasix 40 mg IV twice daily. Patient continues to be ventilated with ET tube. Most likely dependent atelectasis, infection and immobility along with her morbid obesity are primary cause for inability to extubate. Most likely will receive trach and PEG. (13) Morbid obesity with BMI of 40.0-44.9, adult Is this a current diagnosis for this admission?: Yes Plan: 12/05/2018-the patient is morbidly obese. Her BMI is 43. This could be causing morbid obesity hypoventilation making it difficult to wean her from the vent. She will benefit from weight loss. The noncompliance she has exhibited with regard to medications and her health in general makes it unlikely that she will comply with a weight loss diet. 12/06/2018-as above 12/07/2018-I believe the morbid obesity is clearly contributing to the difficulty in weaning. 12/09/2018-morbid obesity is contributing factor for difficulty in weaning patient continue to follow - Time Time Spent with patient: 25-34 minutes - Inpatient Certification Based on my medical assessment, after consideration of the patient's comorbidit ies, presenting symptoms, or acuity I expect that the services needed warrant INPATIENT care.: Yes I certify that my determination is in accordance with my understanding of Me [employer]ful's requirements for reasonable and necessary INPATIENT services [42 CFR 412.3e].: Yes Medical Necessity: Other - Intubated, ventilator, IV antibiotics, sedation
--- NOTE | 2018-12-09 11:24 | ADVANCED CARE ---
- Diagnosis (1) Sepsis Diagnosis Current: Yes (2) Acute respiratory failure with hypoxia Diagnosis Current: Yes (3) Alcoholism Diagnosis Current: Yes (4) Acute kidney injury Diagnosis Current: Yes (5) Cocaine use Diagnosis Current: Yes (6) Pneumonia Diagnosis Current: Yes (7) Anasarca Diagnosis Current: Yes (8) Anemia Diagnosis Current: Yes (9) Hyperbilirubinemia Diagnosis Current: Yes (10) Elevated LFTs Diagnosis Current: Yes (11) Breast mass in female Diagnosis Current: Yes (12) CHF (congestive heart failure) Diagnosis Current: Yes (13) Morbid obesity with BMI of 40.0-44.9, adult Diagnosis Current: Yes Attendance: As the patient is intubated and sedated my conversation was with the patient's aunt Kisha Ansari over the phone. Resuscitation Status: Full Code Discussion: The patient's aunt, Kisha Ansari, is the decision maker for the patient. The patient's mother . Her 3 children are minors. Mrs. Ansari and I discussed multiple issues. She did inform me that the patient was basically raised by her. She considers the patient her daughter. As she has 3 sons this is her only "daughter". The patient's mother was intubated and successfully extubated (but subsequently of AIDS 1 year later) sometime ago. The patient has 3 young children and Mrs. Ansari herself is dealing with illness. We discussed the patient's lifestyle choices that have led directly to her poor recovery. We reviewed in detail the tracheostomy and PEG tube and the fact that they do not influence survivability. They do, however, allow the patient ongoing ventilatory support with weaning as the endotracheal tube has reached its time limits. We discussed the fact that after 2 weeks the patient has tolerated minimal weaning. We reviewed the patient's pneumonia and current antibiotic therapy and how this is only a portion of the comorbidities contributing to poor weaning. In addition, I informed her that there are limited facilities for long-term vent weaning in the [facility]. The patient may very well need to transfer to a facility in [facility]. If the bed is not available then we would look at out of state facilities. This would certainly make visiting the patient somewhat difficult. We talked about the fact that tracheostomy and PEG tube placement are significant surgical interventions. Considering all of the social and medical issues, Mrs. Ansari has decided to go ahead with tracheostomy and PEG tube placement. I did inform case management as well as nursing. I will inform the physician taking over the patient's care about this decision. I did asked the patient to be at the hospital around lunchtime so that she can discuss this with surgery as well as signing the required consent forms. I did state that in my opinion, she may be having this same discussion regarding potential terminal extubation in approximately 3 to 4 weeks from now if the patient does not make significant progress. The patient acknowledged that she understands and wishes to continue with tracheostomy and PEG tube placement. Care Planning Goals: The goal of today's discussion was to decide on extubation versus PEG tube placement and tracheostomy. Mrs. Ansari wishes to maintain full CODE STATUS. Document(s) Completed: As this was a phone conference no documents were completed. Time Spent: 35 minutes
[2018-12-09] MEDS: CEFTRIAXONE 1 GM/D5W RTU 1 GM/50 ML RTUPB IV SCH (11:52)
[2018-12-09] MEDS: LEVALBUTEROL HCL NEB 0.63 MG/3 ML AMPUL NEB PRN (19:42)
[2018-12-10] MEDS: IPRATROPIUM BROMIDE 0.02% NEB 0.5 MG/2.5 ML AMPUL NEB SCH ×4 (00:31→23:05)
[2018-12-10] MEDS: LEVALBUTEROL HCL NEB 1.25 MG/3 ML AMPUL NEB SCH ×4 (00:31→23:05)
[2018-12-10] MEDS: PROPOFOL 1,000 MG/100 ML INFUS..BTL IV PRN ×7 (02:46→23:27)
[2018-12-10 03:42] LABS: HEMATOCRIT 40.7 % (36.0-47.0); HEMOGLOBIN 12.9 g/dL (12.0-15.5); MEAN CORPUSCULAR HEMOGLOBIN 25.5 pg (27.0-33.4); MEAN CORPUSCULAR HGB CONC 31.8 g/dL (32.0-36.0); MEAN CORPUSCULAR VOLUME 80 fl (80-97); PLATELET COUNT 637 10^3/uL (150-450); RED BLOOD COUNT 5.08 10^6/uL (3.72-5.28); RED CELL DISTRIBUTION WIDTH 20.6 % (11.5-14.0); WHITE BLOOD COUNT 6.3 10^3/uL (4.0-10.5)
[2018-12-10 04:10] LABS: ALKALINE PHOSPHATASE 206 U/L (38-126); ANION GAP 17 (5-19); ASPARTATE AMINO TRANSFERASE 47 U/L (14-36); BILIRUBIN,DIRECT 1.8 mg/dL (0.0-0.4); BILIRUBIN,TOTAL 2.1 mg/dL (0.2-1.3); BLOOD UREA NITROGEN 14 mg/dL (7-20); CALCIUM 10.2 mg/dL (8.4-10.2); CARBON DIOXIDE 24 mmol/L (22-30); CHLORIDE 102 mmol/L (98-107); GLUCOSE 92 mg/dL (75-110); PHOSPHORUS 5.4 mg/dL (2.5-4.5); POTASSIUM 3.4 mmol/L (3.6-5.0); TOTAL PROTEIN 9.4 g/dL (6.3-8.2)
[2018-12-10] MEDS: MIDAZOLAM HCL 50 MG/100 ML RTUINJ IV PRN ×2 (05:59→15:44)
[2018-12-10] MEDS: HEPARIN SOD (PORCINE) 5,000 UNIT/ML 1 ML VIAL SUBCUT SCH ×3 (06:00→22:33)
[2018-12-10] MEDS: POTASSIUM CHLORIDE 20 MEQ/50 ML RTU IV SCH ×2 (06:01→07:41)
[2018-12-10 06:41] LABS: ARTERIAL BLOOD BASE EXCESS 0.9 mmol/L; ARTERIAL BLOOD FIO2 40%; ARTERIAL BLOOD H2CO3 1.09 mmol/L (1.05-1.35); ARTERIAL BLOOD HCO3 24.5 mmol/L (20-24); ARTERIAL BLOOD O2 SATURATION 93.2 % (94-98); ARTERIAL BLOOD PCO2 36.3 mmHg (35-45); ARTERIAL BLOOD PH 7.45 (7.35-7.45); ARTERIAL BLOOD PO2 63.1 mmHg (80-100); ARTERIAL BLOOD TOTAL CO2 25.7 mmol/L (21-25)
[2018-12-10] MEDS: BUDESONIDE NEB 0.5 MG/2 ML AMPUL NEB SCH ×2 (08:27→20:41)
--- NOTE | 2018-12-10 09:05 | PDOC PROGRESS REPORT ---
Subjective Progress Note for:: 12/10/18 Subjective:: 12/09/2018-intubated and sedated 12/10/2018-intubated and sedated Reason For Visit: ACUTE RESPIRATORY FAILURE WITH HYPOXIA Physical Exam Vital Signs: Temp Pulse Resp BP Pulse Ox 99.1 F 86 21 H 125/89 H 97 12/10/18 08:00 12/10/18 08:25 12/10/18 08:25 12/10/18 08:00 12/10/18 08:25 Intake & Output 12/09/18 12/10/18 12/11/18 06:59 06:59 06:59 Intake Total 1323 1001 42 Output Total 2369 5 65 Balance -592 -1049 -23 Weight 115.3 kg 115.4 kg General appearance: PRESENT: no acute distress, well-developed, well-nourished Head exam: PRESENT: atraumatic, normocephalic Eye exam: PRESENT: conjunctiva pink, EOMI, PERRLA. ABSENT: scleral icterus Ear exam: PRESENT: normal external ear exam Mouth exam: PRESENT: moist, tongue midline Neck exam: ABSENT: carotid bruit, JVD, lymphadenopathy, thyromegaly Respiratory exam: PRESENT: rhonchi, symmetrical, unlabored. ABSENT: rales, wheezes Cardiovascular exam: PRESENT: RRR. ABSENT: diastolic murmur, rubs, systolic murmur Pulses: PRESENT: +1 pedal pulses bilateral Vascular exam: PRESENT: normal capillary refill GI/Abdominal exam: PRESENT: normal bowel sounds, soft. ABSENT: distended, guarding, mass, organolmegaly, rebound, tenderness Rectal exam: PRESENT: deferred Extremities exam: PRESENT: calf tenderness, full ROM. ABSENT: clubbing, pedal edema Neurological exam: PRESENT: other - Intubated and sedated Psychiatric exam: PRESENT: other - Intubated and sedated Skin exam: PRESENT: dry, intact, warm. ABSENT: cyanosis, rash Results Laboratory Results: 12/10/18 03:17 12/10/18 03:17 12/10/18 12/10/18 12/10/18 03:17 03:17 06:00 WBC 6.3 RBC 5.08 Hgb 12.9 Hct 40.7 MCV 80 MCH 25.5 L MCHC 31.8 L RDW 20.6 H Plt Count 637 H Carbonic Acid 1.09 HCO3/H2CO3 Ratio 22:1 ABG pH 7.45 ABG pCO2 36.3 ABG pO2 63.1 L ABG HCO3 24.5 H ABG O2 Saturation 93.2 L ABG Base Excess 0.9 FiO2 40% Sodium 142.8 Potassium 3.4 L Chloride 102 Carbon Dioxide 24 Anion Gap 17 BUN 14 Creatinine 0.73 Est GFR ( Amer) > 60 Glucose 92 Calcium 10.2 Phosphorus 5.4 H Total Bilirubin 2.1 H AST 47 H Alkaline Phosphatase 206 H Total Protein 9.4 H Albumin 4.0 11/25/18 11/25/18 11/25/18 01:58 07:39 07:39 Creatine Kinase 50 CK-MB (CK-2) 0.53 Troponin I < 0.012 < 0.012 NT-Pro-B Natriuret Pep 766 H 11/25/18 11/25/18 11/25/18 12:03 12:03 18:17 Creatine Kinase 37 29 L CK-MB (CK-2) 0.37 Troponin I < 0.012 NT-Pro-B Natriuret Pep 11/25/18 11/26/18 18:17 03:32 Creatine Kinase CK-MB (CK-2) < 0.22 Troponin I < 0.012 NT-Pro-B Natriuret Pep 490 H Impressions: Abdomen Ultrasound 11/25/18 01:12 IMPRESSION: No free fluid identified within the upper quadrants. Evaluation of the lower quadrants was limited due to patient positioning as per the technologist. Head CT 11/27/18 00:00 IMPRESSION: Sinus disease. No acute intracranial imaging findings. EVIDENCE OF ACUTE STROKE: NO. Abdomen/Pelvis CT 12/03/18 00:00 IMPRESSION: Bilateral lower lobe consolidation -atelectasis. No pneumothorax pleural effusion. Endotracheal tube is present with tip 1.3 cm above the level of the kirill. IMPRESSION: Small amount of pelvic free fluid. No bowel dilatation. Chest CT 12/03/18 00:00 IMPRESSION: Bilateral lower lobe consolidation -atelectasis. No pneumothorax pleural effusion. Endotracheal tube is present with tip 1.3 cm above the level of the kirill. IMPRESSION: Small amount of pelvic free fluid. No bowel dilatation. KUB X-Ray 12/03/18 12:02 IMPRESSION: NO RADIOGRAPHIC EVIDENCE FOR ACUTE ABDOMINAL DISEASE.NG tube tip overlies the pyloric region of the stomach. Assessment and Plan - Diagnosis (1) Sepsis Qualifiers: Sepsis type: sepsis due to unspecified organism Sepsis acute organ dysfunction status: unspecified Qualified Code(s): A41.9 - Sepsis, unspecified organism Is this a current diagnosis for this admission?: Yes Plan: 12/05/2018-sepsis most likely due to pneumonia. The patient did undergo bronchoscopy today and cultures are pending. She is no longer hypotensive. Antibiotic therapy is completed. Sepsis resolved 12/06/2018-resolved 12/09/2018-continues to improve. Patient did show Klebsiella in her bronchial wa shings. She is on Rocephin at this time. We will continue to follow 12/10/2018-continues to improve. Patient weaned down to 6 of PEEP this morning. She does have Klebsiella in her bronchial washings which is susceptible to Rocephin which she is on at this time. Continue to follow (2) Acute respiratory failure with hypoxia Is this a current diagnosis for this admission?: Yes Plan: 12/05/2018-the patient remains intubated and sedated. Currently on SIMV with a tidal volume of 500, PEEP 10, respiratory rate 16 and FiO2 50%. The patient did undergo bronchoscopy today. Bronchial washings were sent for culture. We will continue to attempt weaning daily. 12/06/2018-the patient remains intubated. Weaning trials are ongoing. The patient did undergo bronchoscopy yesterday. Bronchial washings are growing gram-negative bacilli. Her white blood cell count is normal and she is afebrile. It is possible that there is no occult infection inhibiting weaning. We should have a tentative identification tomorrow. I will then discuss with pulmonology a need to treat or not. We will otherwise continue pulmonary treatments. 12/07/2018-the patient still has high peak pressures and has failed weaning trials. She gets tachypneic and somewhat agitated. As it is unlikely she will be able to be extubated I am going to discuss with her aunt the next step which would be PEG tube, tracheostomy and placement. Finding a facility for long-term vent weaning will likely lead to searching out of state. The bronchial washings did culture positive for Klebsiella. She has been started on Rocephin. 12/08/2018-she still exhibits high peak pressures today. She is actually weaning nicely but this requires sedation. She is at the point where a decision needs to be made regarding tracheostomy. I will discuss this with her aunt today. 12/09/2018-patient remains on ventilator. Peak pressures have went to normal. She still gets tachypneic and agitated when sedation is removed. It is unlikely patient will be extubated at which point patient will most likely receive a trach and PEG. At that point we will start looking for a long-term vent weaning facility. Bronchial washings were positive for Klebsiella and she is on Roce phin. 12/10/2018-patient remains on ventilator. Peak pressures continue to be normal. Patient most likely with trach and PEG this week after found that it makes a decision on Tuesday. Was able to wean PEEP down to 6 this morning we will continue to follow with respiratory therapy (3) Alcoholism Is this a current diagnosis for this admission?: Yes Plan: 12/05/2018-the patient should be passed any window for withdrawal. Will need to encourage alcohol cessation with outpatient treatment if she survives this episode. 12/06/2018-past the window of withdrawal. Would benefit from cessation and a support group post recovery 12/07/2018-certainly a contributing factor to her poor health. Encourage patient support group if the patient survives. 12/08/2018-as above. No change in plan. 12/09/2018-most likely contributed to her poor health. Encourage support group if patient survives this event. 12/10/2018-await patient to be moved from vent make plans and encourage sobriety (4) Acute kidney injury Is this a current diagnosis for this admission?: Yes Plan: 12/05/2018-the patient has exhibited a marked loss in weight with significant diuresis. She is net negative almost 10 L. She continues on a furosemide infusion. Dr. Johnson reports that she will likely change from a continuous furosemide infusion to intermittent dosing. Serum creatinine is down to 0.95. 12/06/2018-acute kidney injury has resolved. 12/07/2018-initial injury has resolved. Continue to monitor renal function. 12/08/2018-resolved. Continue to monitor with daily blood work 12/09/2018-has resolved so far. Continue to follow renal function. 12/10/2018-continue resolution. Continue to follow renal function. (5) Cocaine use Is this a current diagnosis for this admission?: Yes Plan: 12/05/2018-toxicology screen was positive for cocaine on admission. The patient is past the window of any withdrawal. Will need to encourage cessation with outpatient rehab. The patient has exhibited marked noncompliance in the past. 12/06/2018-try to encourage an addiction support program as an outpatient 12/07/2018-May contributing factor to her recurrent illness he is and poor ability to recover. If the patient survives hopefully she will participate in a drug abuse treatment program. 12/08/2018-as above 12/09/2018-if patient provides event drug abuse treatment program would be beneficial 12/10/2018-continue to follow. Once patient is extubated offer drug abuse treatment programs (6) Pneumonia Qualifiers: Pneumonia type: due to unspecified organism Laterality: bilateral Lung location: lower lobe of lung Qualified Code(s): J18.1 - Lobar pneumonia, unspecified organism Is this a current diagnosis for this admission?: Yes Plan: 12/05/2018-bilateral airspace disease. The patient completed therapy with Zosyn. White count has normalized. Still trying to wean from ventilator. Bronchoscopy performed today. Bronchial washings sent for culture to assess for any remaining infection. 12/06/2018-the patient did complete a course of Zosyn. Her white count remains normal however the bronchoscopy washings are growing gram-negative bacilli. I will await more information tomorrow and discuss with pulmonology. This may require antibiotic therapy and certainly could be causing slow weaning. 12/07/2018-the patient did undergo initial treatment with Zosyn for pneumonia. Bronchoscopy 48 hours ago supplied washings for culture. Klebsiella was isolated. It is sensitive to Rocephin and so the patient is on ceftriaxone. 12/08/2018-complete ceftriaxone as ordered 12/09/2018-bronchoscopy washings showed Klebsiella patient is on Rocephin. 12/10/2018-bronchial washing show Klebsiella continue on Rocephin (7) Anasarca Is this a current diagnosis for this admission?: Yes Plan: 12/05/2018-continued improvement with a net negative fluid loss of over 10 L and commensurate weight loss. The patient is currently on infusion of furosemide. Nephrology reports that they will be changing to scheduled dosing and discontinuing the infusion in the next 24 to 48 hours. 12/06/2018-significant improvement from admission. Dr. Johnson has stopped the furosemide infusion and the patient is now on 40 mg IV every 12 hours. We will continue to monitor electrolytes, blood pressure and renal function. We will try and avoid a net positive fluid balance. 12/07/2018-resolved. The patient is currently on 40 mg of furosemide twice daily. We will monitor her intake and output and consider 20 mg twice daily and try to maintain normovolemia 12/08/2018-no change in treatment plan today 12/09/2018-improved. Patient remains on 40 mg IV Lasix twice daily. Will follow urine output and weight. 12/10/2018-improved continue Lasix (8) Anemia Qualifiers: Anemia type: iron deficiency Iron deficiency anemia type: inadequate dietary iron intake Qualified Code(s): D50.8 - Other iron deficiency anemias Is this a current diagnosis for this admission?: Yes Plan: 12/05/2018-hemoglobin today was 12.0. We will continue to monitor. No evidence of blood loss. 12/06/2018-hemoglobin remains stable. Monitor for blood loss. 12/07/2018-it appears that her critical illness anemia is recovering. 12/08/2018-currently with normal stable hemoglobin. Continue to monitor. 12/09/2018-resolved. Continue to follow daily CBCs 12/10/2018-resolved. Continue to follow daily CBCs (9) Hyperbilirubinemia Is this a current diagnosis for this admission?: Yes Plan: 12/05/2018-total bilirubin is down to 1.9. This is improved from a total bilirubin greater than 4.0 last week. Acute liver injury secondary to sepsis. Continue to monitor liver function. 12/06/2018-as noted above total bilirubin was down to 1.9. I will recheck liver chemistries in several days. 12/07/2018-we will recheck bilirubin tomorrow. 12/08/2018-bilirubin remains elevated today. It is down to 2.0. Continue to monitor. 12/09/2018-total bili remains 2.0 today we will repeat LFTs in the a.m. 12/10/2018 LFTs with mild elevation of AST to 47. Bilirubin remains elevated most likely shock liver secondary to sepsis. (10) Elevated LFTs Is this a current diagnosis for this admission?: Yes Plan: 12/05/2018-as noted above acute hepatic injury due to sepsis. Liver chemistries improving. Continue to monitor. 12/06/2018-as noted above we will monitor liver chemistries every several days. Blood work continues to improve. 12/07/2018-we will recheck liver chemistries tomorrow. 12/08/2018-bilirubin and alkaline phosphatase still remain elevated. Continue to monitor. I expect that these will recover over time. 12/09/2018-recheck liver chemistries tomorrow. 12/10/2018-mild elevation of AST of 47. Continue to follow (11) Breast mass in female Is this a current diagnosis for this admission?: Yes Plan: 12/05/2018-breast mass noted during imaging for pneumonia. The patient will need outpatient work-up. 12/06/2018-continue work-up as an outpatient 12/07/2018-consideration should be given of the possibility of malignancy. This could contribute to decision-making with regard to ongoing aggressive treatment. 12/08/2018-no acute intervention at this time 12/09/2018-will follow. Consideration of possible malignancy. 12/10/2018-continue to follow. No intervention at this time. (12) CHF (congestive heart failure) Qualifiers: Heart failure type: diastolic Is this a current diagnosis for this admission?: Yes Plan: 12/05/2018-the patient had an echocardiogram earlier this year. Her ejection fraction was 65 and she exhibited 1/4 diastolic dysfunction. We will continue management as outlined above. 12/06/2018-we will continue to monitor. With changes in medication will consider adding an LEONARDA inhibitor, angiotensin receptor tess and or Aldactone. Currently congestive heart failure is present but stable. We will begin to modify therapy as the patient recovers. 12/07/2018-does not appear that heart failure is a clinical concern at this time. Infection and dependent atelectasis as well as her morbid obesity appear to be the primary drivers for inability to extubate the patient. 12/08/2018-continue the same regimen at this time. 12/09/2018-improved stable. Patient continues on Lasix 40 mg IV twice daily. Patient continues to be ventilated with ET tube. Most likely dependent atelectasis, infection and immobility along with her morbid obesity are primary cause for inability to extubate. Most likely will receive trach and PEG. 12/10/2018-patient continues on Lasix 40 mg IV twice daily. Patient continues on ventilator. Continue to follow (13) Morbid obesity with BMI of 40.0-44.9, adult Is this a current diagnosis for this admission?: Yes - Time Time Spent with patient: 25-34 minutes - Inpatient Certification Based on my medical assessment, after consideration of the patient's comorbidities, presenting symptoms, or acuity I expect that the services needed warrant INPATIENT care.: Yes I certify that my determination is in accordance with my understanding of Medicare's requirements for reasonable and necessary INPATIENT services [42 CFR 412.3e].: Yes Medical Necessity: Other - IV fluids, enteral nutrition, ventilator
--- NOTE | 2018-12-10 09:25 | RADIOLOGY REPORT (SQ) ---
EXAM DESCRIPTION: CHEST SINGLE VIEW COMPLETED DATE/TIME: 12/10/2018 6:07 am REASON FOR STUDY: respiratory failure/intubation COMPARISON: 12/09/2018 NUMBER OF VIEWS: One view. TECHNIQUE: Single frontal radiographic image of the chest acquired. LIMITATIONS: Overlying support apparatus. FINDINGS: LUNGS AND PLEURA: Improved aeration in the lung bases. No pneumothorax. MEDIASTINUM AND HEART: Stable heart size and mediastinal structures. SUPPORT DEVICES: Appropriate location without change. BONY STRUCTURES: No acute findings. HARDWARE: None. OTHER: No other significant finding. IMPRESSION: Interval improvement. No pneumothorax. Reading location - IP/workstation name: [email or web address]
[2018-12-10] MEDS: PANTOPRAZOLE SODIUM 40 MG VIAL IV SCH (09:37)
[2018-12-10] MEDS: THIAMINE HCL 100 MG in NORMAL SALINE 50 ML IV SCH (09:37)
[2018-12-10] MEDS: FUROSEMIDE INJ/PF 40 MG/4 ML SDV IV SCH ×2 (09:37→22:34)
[2018-12-10] MEDS: MULTIVITAMIN ORAL LIQUID 60 ML NG SCH (09:37)
[2018-12-10] MEDS: PANTOT AC/MIN OIL/PET HY-PHL OINT 50 GM TOP SCH ×2 (09:38→22:33)
[2018-12-10] MEDS: CEFTRIAXONE 1 GM/D5W RTU 1 GM/50 ML RTUPB IV SCH (12:09)
[2018-12-10] MEDS: LEVALBUTEROL HCL NEB 0.63 MG/3 ML AMPUL NEB PRN (20:42)
[2018-12-10 22:23] LABS: POTASSIUM 3.3 mmol/L (3.6-5.0)
[2018-12-10] MEDS ORDERED: POTASSIUM CHLORIDE 20 MEQ PACKET GT ONE (23:00)
[2018-12-10] MEDS ORDERED: MAGNESIUM SULFATE/D5W 1 GM/100 ML RTUPB IV ONE (23:00)
[2018-12-11] MEDS: PROPOFOL 1,000 MG/100 ML INFUS..BTL IV PRN ×2 (02:55→07:01)
[2018-12-11] MEDS: MIDAZOLAM HCL 50 MG/100 ML RTUINJ IV PRN (04:16)
[2018-12-11 04:17] LABS: ABSOLUTE BASOPHILS # (AUTO) 0.1 10^3/uL (0.0-0.2); ABSOLUTE EOSINOPHILS # (AUTO) 0.3 10^3/uL (0.0-0.6); ABSOLUTE LYMPHOCYTES (AUTO) 1.8 10^3/uL (0.5-4.7); ABSOLUTE MONOCYTES (AUTO) 0.5 10^3/uL (0.1-1.4); ABSOLUTE NEUT (AUTO) 2.7 10^3/uL (1.7-8.2); BASOPHILS % (AUTO) 1.9 % (0-2); EOSINOPHILS % (AUTO) 4.7 % (0-6); HEMATOCRIT 40.7 % (36.0-47.0); HEMOGLOBIN 13.1 g/dL (12.0-15.5); LYMPHOCYTES % (AUTO) 33.8 % (13-45); MEAN CORPUSCULAR HEMOGLOBIN 25.8 pg (27.0-33.4); MEAN CORPUSCULAR HGB CONC 32.1 g/dL (32.0-36.0); MEAN CORPUSCULAR VOLUME 80 fl (80-97); MONOCYTES % (AUTO) 9.5 % (3-13); PLATELET COUNT 638 10^3/uL (150-450); RED BLOOD COUNT 5.07 10^6/uL (3.72-5.28); RED CELL DISTRIBUTION WIDTH 20.9 % (11.5-14.0); SEGMENTED NEUTROPHILS % (AUTO) 50.1 % (42-78); TOTAL CELLS COUNTED % (AUTO) 100 %; WHITE BLOOD COUNT 5.4 10^3/uL (4.0-10.5)
[2018-12-11 04:20] LABS: ARTERIAL BLOOD BASE EXCESS 1.7 mmol/L; ARTERIAL BLOOD H2CO3 1.02 mmol/L (1.05-1.35); ARTERIAL BLOOD HCO3 24.7 mmol/L (20-24); ARTERIAL BLOOD PCO2 33.8 mmHg (35-45); ARTERIAL BLOOD PH 7.48 (7.35-7.45); ARTERIAL BLOOD PO2 60.3 mmHg (80-100); ARTERIAL BLOOD TOTAL CO2 25.7 mmol/L (21-25)
[2018-12-11 04:24] LABS: ANION GAP 17 (5-19); BLOOD UREA NITROGEN 14 mg/dL (7-20); CALCIUM 10.2 mg/dL (8.4-10.2); CARBON DIOXIDE 20 mmol/L (22-30); CHLORIDE 105 mmol/L (98-107); GLUCOSE 96 mg/dL (75-110); POTASSIUM 3.9 mmol/L (3.6-5.0)
[2018-12-11 04:25] LABS: ARTERIAL BLOOD FIO2 25%
[2018-12-11] MEDS: HEPARIN SOD (PORCINE) 5,000 UNIT/ML 1 ML VIAL SUBCUT SCH ×3 (05:46→22:15)
--- NOTE | 2018-12-11 06:25 | RADIOLOGY REPORT (SQ) ---
CLINICAL HISTORY: respiratory failure/intubation COMPARISON: December 10, 2018. TECHNIQUE: XR CHEST 1 VIEW 12/11/2018 6:00 AM CDT FINDINGS: The heart is mildly enlarged. Lungs are clear without consolidation, atelectasis, mass or edema. There is no pleural effusion. There is no pneumothorax. There are no acute osseous findings. Endotracheal and nasogastric tubes are unchanged. IMPRESSION: No change.
[2018-12-11] MEDS: LEVALBUTEROL HCL NEB 1.25 MG/3 ML AMPUL NEB SCH ×2 (08:33→16:05)
[2018-12-11] MEDS: BUDESONIDE NEB 0.5 MG/2 ML AMPUL NEB SCH ×2 (08:33→20:16)
[2018-12-11] MEDS: IPRATROPIUM BROMIDE 0.02% NEB 0.5 MG/2.5 ML AMPUL NEB SCH ×2 (08:33→16:05)
[2018-12-11] MEDS ORDERED: DEXAMETHASONE SOD PHOSPHATE INJ 4 MG/1 ML VIAL IV ONE (08:49)
[2018-12-11] MEDS: DEXAMETHASONE SOD PHOSPHATE INJ 4 MG/1 ML VIAL ONE ×2 (08:57→09:08)
--- NOTE | 2018-12-11 08:57 | PDOC PROGRESS REPORT ---
Subjective Progress Note for:: 12/11/18 Subjective:: Intubated and sedated but arousable Reason For Visit: ACUTE RESPIRATORY FAILURE WITH HYPOXIA Physical Exam Vital Signs: Temp Pulse Resp BP Pulse Ox 98.6 F 81 20 126/87 H 94 12/11/18 08:00 12/11/18 08:35 12/11/18 08:35 12/11/18 08:00 12/11/18 08:35 Intake & Output 12/10/18 12/11/18 12/12/18 06:59 06:59 06:59 Intake Total 1001 1201 54 Output Total 2049 2089 60 Balance -1049 -889 -6 Weight 115.4 kg 112.2 kg General appearance: PRESENT: no acute distress, disheveled, morbidly obese Head exam: PRESENT: atraumatic, normocephalic Eye exam: PRESENT: conjunctiva pale, EOMI. ABSENT: nystagmus, periorbital swelling, scleral icterus Mouth exam: PRESENT: dry mucosa, neck supple, tongue midline, other - ET tube Neck exam: ABSENT: carotid bruit, full ROM, JVD, lymphadenopathy, meningismus, tenderness, thyromegaly, tracheal deviation, tracheostomy, other Respiratory exam: PRESENT: decreased breath sounds, prolonged expiratory phas, rhonchi, symmetrical, unlabored. ABSENT: retraction, stridor, tachypnea Cardiovascular exam: PRESENT: RRR, +S1. ABSENT: tachycardia Pulses: PRESENT: normal radial pulses GI/Abdominal exam: PRESENT: hypoactive bowel sounds, soft. ABSENT: tenderness Gentrourinary exam: PRESENT: indwelling catheter Extremities exam: ABSENT: calf tenderness, clubbing, joint swelling, tenderness Musculoskeletal exam: ABSENT: ambulatory, deformity, dislocation Neurological exam: PRESENT: altered, awake Psychiatric exam: PRESENT: flat affect Skin exam: PRESENT: dry, warm Results Laboratory Results: 12/11/18 03:25 12/11/18 03:25 12/10/18 12/11/18 12/11/18 21:55 03:25 03:25 WBC 5.4 RBC 5.07 Hgb 13.1 Hct 40.7 MCV 80 MCH 25.8 L MCHC 32.1 RDW 20.9 H Plt Count 638 H Seg Neutrophils % 50.1 Carbonic Acid HCO3/H2CO3 Ratio ABG pH ABG pCO2 ABG pO2 ABG HCO3 ABG O2 Saturation ABG Base Excess FiO2 Sodium 142.2 Potassium 3.3 L 3.9 Chloride 105 Carbon Dioxide 20 L Anion Gap 17 BUN 14 Creatinine 0.68 Est GFR ( Amer) > 60 Glucose 96 Calcium 10.2 Magnesium 1.6 1.8 12/11/18 04:05 WBC RBC Hgb Hct MCV MCH MCHC RDW Plt Count Seg Neutrophils % Carbonic Acid 1.02 L HCO3/H2CO3 Ratio 24:1 ABG pH 7.48 H ABG pCO2 33.8 L ABG pO2 60.3 L ABG HCO3 24.7 H ABG O2 Saturation 93.0 L ABG Base Excess 1.7 FiO2 25% Sodium Potassium Chloride Carbon Dioxide Anion Gap BUN Creatinine Est GFR ( Amer) Glucose Calcium Magnesium 11/25/18 11/25/18 11/25/18 01:58 07:39 07:39 Creatine Kinase 50 CK-MB (CK-2) 0.53 Troponin I < 0.012 < 0.012 NT-Pro-B Natriuret Pep 766 H 11/25/18 11/25/18 11/25/18 12:03 12:03 18:17 Creatine Kinase 37 29 L CK-MB (CK-2) 0.37 Troponin I < 0.012 NT-Pro-B Natriuret Pep 11/25/18 11/26/18 18:17 03:32 Creatine Kinase CK-MB (CK-2) < 0.22 Troponin I < 0.012 NT-Pro-B Natriuret Pep 490 H Impressions: Abdomen Ultrasound 11/25/18 01:12 IMPRESSION: No free fluid identified within the upper quadrants. Evaluation of the lower quadrants was limited due to patient positioning as per the technologist. Head CT 11/27/18 00:00 IMPRESSION: Sinus disease. No acute intracranial imaging findings. EVIDENCE OF ACUTE STROKE: NO. Abdomen/Pelvis CT 12/03/18 00:00 IMPRESSION: Bilateral lower lobe consolidation -atelectasis. No pneumothorax pleural effusion. Endotracheal tube is present with tip 1.3 cm above the level of the kirill. IMPRESSION: Small amount of pelvic free fluid. No bowel dilatation. Chest CT 12/03/18 00:00 IMPRESSION: Bilateral lower lobe consolidation -atelectasis. No pneumothorax pleural effusion. Endotracheal tube is present with tip 1.3 cm above the level of the kirill. IMPRESSION: Small amount of pelvic free fluid. No bowel dilatation. KUB X-Ray 12/03/18 12:02 IMPRESSION: NO RADIOGRAPHIC EVIDENCE FOR ACUTE ABDOMINAL DISEASE.NG tube tip overlies the pyloric region of the stomach. Chest X-Ray 12/11/18 06:00 IMPRESSION: No change. Assessment & Plan - Diagnosis (1) Acute respiratory failure with hypoxia Is this a current diagnosis for this admission?: Yes Plan: rr-min [id number]-sacks pressure all suggest sucessful extubation (2) CHF (congestive heart failure) Qualifiers: Heart failure type: diastolic Is this a current diagnosis for this admission?: Yes Plan: Improving (3) Cellulitis of both lower extremities Is this a current diagnosis for this admission?: Yes Plan: d/c abx (4) Anasarca Is this a current diagnosis for this admission?: Yes Plan: resolved (5) Morbid obesity with BMI of 40.0-44.9, adult Is this a current diagnosis for this admission?: Yes Plan: When stable consider nutritional consult (6) Tobacco dependence Is this a current diagnosis for this admission?: Yes Plan: Transdermal nicotine - Time Total Critical Time (Minutes): 55
[2018-12-11] MEDS ORDERED: DEXAMETHASONE SOD PHOS INJ 10 MG/1 ML VIAL IV ONE (09:00)
[2018-12-11 09:30] LABS: PATH REVIEW PATHOLOGIST REVIEWED
[2018-12-11] MEDS: PANTOPRAZOLE SODIUM 40 MG VIAL IV SCH (10:00)
[2018-12-11] MEDS: MIDAZOLAM 2 MG/2 ML INJ IV PRN ×2 (10:00→16:37)
[2018-12-11] MEDS: FUROSEMIDE INJ/PF 40 MG/4 ML SDV IV SCH ×2 (10:00→22:14)
[2018-12-11] MEDS: THIAMINE HCL 100 MG in NORMAL SALINE 50 ML IV SCH (10:02)
[2018-12-11] MEDS: PANTOT AC/MIN OIL/PET HY-PHL OINT 50 GM TOP SCH ×2 (10:05→22:15)
[2018-12-11] MEDS: MULTIVITAMIN ORAL LIQUID 60 ML NG SCH (10:05)
--- NOTE | 2018-12-11 10:06 | PDOC PROGRESS REPORT ---
Subjective Progress Note for:: 12/11/18 Subjective:: 12/09/2018-intubated and sedated 12/10/2018-intubated and sedated 12/11/2018-on BiPAP status post extubation Reason For Visit: ACUTE RESPIRATORY FAILURE WITH HYPOXIA Physical Exam Vital Signs: Temp Pulse Resp BP Pulse Ox 98.6 F 97 27 H 133/74 H 98 12/11/18 08:00 12/11/18 09:14 12/11/18 09:14 12/11/18 09:14 12/11/18 09:14 Intake & Output 12/10/18 12/11/18 12/12/18 06:59 06:59 06:59 Intake Total 1001 1201 66 Output Total 2049 2089 60 Balance -1049 -889 6 Weight 115.4 kg 112.2 kg General appearance: PRESENT: no acute distress, well-developed, well-nourished Neck exam: ABSENT: carotid bruit, JVD, lymphadenopathy, thyromegaly Respiratory exam: PRESENT: decreased breath sounds, symmetrical, tachypnea. ABSENT: rales, rhonchi, wheezes Cardiovascular exam: PRESENT: tachycardia Pulses: PRESENT: +2 pedal pulses bilateral GI/Abdominal exam: PRESENT: normal bowel sounds, soft. ABSENT: distended, guarding, mass, organolmegaly, rebound, tenderness Extremities exam: PRESENT: full ROM. ABSENT: clubbing, pedal edema Neurological exam: PRESENT: alert, awake Psychiatric exam: PRESENT: agitated, anxious Skin exam: PRESENT: dry, intact, warm. ABSENT: cyanosis, rash Results Laboratory Results: 12/11/18 03:25 12/11/18 03:25 12/10/18 12/11/18 12/11/18 21:55 03:25 03:25 WBC 5.4 RBC 5.07 Hgb 13.1 Hct 40.7 MCV 80 MCH 25.8 L MCHC 32.1 RDW 20.9 H Plt Count 638 H Seg Neutrophils % 50.1 Carbonic Acid HCO3/H2CO3 Ratio ABG pH ABG pCO2 ABG pO2 ABG HCO3 ABG O2 Saturation ABG Base Excess FiO2 Sodium 142.2 Potassium 3.3 L 3.9 Chloride 105 Carbon Dioxide 20 L Anion Gap 17 BUN 14 Creatinine 0.68 Est GFR ( Amer) > 60 Glucose 96 Calcium 10.2 Magnesium 1.6 1.8 12/11/18 04:05 WBC RBC Hgb Hct MCV MCH MCHC RDW Plt Count Seg Neutrophils % Carbonic Acid 1.02 L HCO3/H2CO3 Ratio 24:1 ABG pH 7.48 H ABG pCO2 33.8 L ABG pO2 60.3 L ABG HCO3 24.7 H ABG O2 Saturation 93.0 L ABG Base Excess 1.7 FiO2 25% Sodium Potassium Chloride Carbon Dioxide Anion Gap BUN Creatinine Est GFR ( Amer) Glucose Calcium Magnesium 11/25/18 11/25/18 11/25/18 01:58 07:39 07:39 Creatine Kinase 50 CK-MB (CK-2) 0.53 Troponin I < 0.012 < 0.012 NT-Pro-B Natriuret Pep 766 H 11/25/18 11/25/18 11/25/18 12:03 12:03 18:17 Creatine Kinase 37 29 L CK-MB (CK-2) 0.37 Troponin I < 0.012 NT-Pro-B Natriuret Pep 11/25/18 11/26/18 18:17 03:32 Creatine Kinase CK-MB (CK-2) < 0.22 Troponin I < 0.012 NT-Pro-B Natriuret Pep 490 H Impressions: Abdomen Ultrasound 11/25/18 01:12 IMPRESSION: No free fluid identified within the upper quadrants. Evaluation of the lower quadrants was limited due to patient positioning as per the technologist. Head CT 11/27/18 00:00 IMPRESSION: Sinus disease. No acute intracranial imaging findings. EVIDENCE OF ACUTE STROKE: NO. Abdomen/Pelvis CT 12/03/18 00:00 IMPRESSION: Bilateral lower lobe consolidation -atelectasis. No pneumothorax pleural effusion. Endotracheal tube is present with tip 1.3 cm above the level of the kirill. IMPRESSION: Small amount of pelvic free fluid. No bowel dilatation. Chest CT 12/03/18 00:00 IMPRESSION: Bilateral lower lobe consolidation -atelectasis. No pneumothorax pleural effusion. Endotracheal tube is present with tip 1.3 cm above the level of the kirill. IMPRESSION: Small amount of pelvic free fluid. No bowel dilatation. KUB X-Ray 12/03/18 12:02 IMPRESSION: NO RADIOGRAPHIC EVIDENCE FOR ACUTE ABDOMINAL DISEASE.NG tube tip overlies the pyloric region of the stomach. Chest X-Ray 12/11/18 06:00 IMPRESSION: No change. Assessment and Plan - Diagnosis (1) Sepsis Qualifiers: Sepsis type: sepsis due to unspecified organism Sepsis acute organ dys function status: unspecified Qualified Code(s): A41.9 - Sepsis, unspecified organism Is this a current diagnosis for this admission?: Yes Plan: 12/05/2018-sepsis most likely due to pneumonia. The patient did undergo bronchoscopy today and cultures are pending. She is no longer hypotensive. Antibiotic therapy is completed. Sepsis resolved 12/06/2018-resolved 12/09/2018-continues to improve. Patient did show Klebsiella in her bronchial washings. She is on Rocephin at this time. We will continue to follow 12/10/2018-continues to improve. Patient weaned down to 6 of PEEP this morning. She does have Klebsiella in her bronchial washings which is susceptible to Rocephin which she is on at this time. Continue to follow 12/11/2018-patient extubated at this time. Klebsiella in her bronchial washings continue Rocephin. May require reintubation will follow. Blood pressure stable (2) Acute respiratory failure with hypoxia Is this a current diagnosis for this admission?: Yes Plan: 12/05/2018-the patient remains intubated and sedated. Currently on SIMV with a tidal volume of 500, PEEP 10, respiratory rate 16 and FiO2 50%. The patient did undergo bronchoscopy today. Bronchial washings were sent for culture. We will continue to attempt weaning daily. 12/06/2018-the patient remains intubated. Weaning trials are ongoing. The patient did undergo bronchoscopy yesterday. Bronchial washings are growing gram-negative bacilli. Her white blood cell count is normal and she is afebrile. It is possible that there is no occult infection inhibiting weaning. We should have a tentative identification tomorrow. I will then discuss with pulmonology a need to treat or not. We will otherwise continue pulmonary treatments. 12/07/2018-the patient still has high peak pressures and has failed weaning trials. She gets tachypneic and somewhat agitated. As it is unlikely she will be able to be extubated I am going to discuss with her aunt the next step which would be PEG tube, tracheostomy and placement. Finding a facility for long-term vent weaning will likely lead to searching out of state. The bronchial washings did culture positive for Klebsiella. She has been started on Rocephin. 12/08/2018-she still exhibits high peak pressures today. She is actually weaning nicely but this requires sedation. She is at the point where a decision needs to be made regarding tracheostomy. I will discuss this with her aunt today. 12/09/2018-patient remains on ventilator. Peak pressures have went to normal. She still gets tachypneic and agitated when sedation is removed. It is unlikely patient will be extubated at which point patient will most likely receive a trach and PEG. At that point we will start looking for a long-term vent weaning facility. Bronchial washings were positive for Klebsiella and she is on Ro cephin. 12/10/2018-patient remains on ventilator. Peak pressures continue to be normal. Patient most likely with trach and PEG this week after found that it makes a decision on Tuesday. Was able to wean PEEP down to 6 this morning we will continue to follow with respiratory therapy 12/11/2018-extubated this a.m. On BiPAP at this time. Tachypneic tachycardic. PRN Versed. We will continue to follow patient may require reintubation. (3) Alcoholism Is this a current diagnosis for this admission?: Yes Plan: 12/05/2018-the patient should be passed any window for withdrawal. Will need to encourage alcohol cessation with outpatient treatment if she survives this episode. 12/06/2018-past the window of withdrawal. Would benefit from cessation and a support group post recovery 12/07/2018-certainly a contributing factor to her poor health. Encourage patient support group if the patient survives. 12/08/2018-as above. No change in plan. 12/09/2018-most likely contributed to her poor health. Encourage support group if patient survives this event. 12/10/2018-await patient to be moved from vent make plans and encourage sobriety 12/11/2018-no signs of withdrawal. Encourage sobriety (4) Acute kidney injury Is this a current diagnosis for this admission?: Yes Plan: 12/05/2018-the patient has exhibited a marked loss in weight with significant diuresis. She is net negative almost 10 L. She continues on a furosemide infusion. Dr. Johnson reports that she will likely change from a continuous furosemide infusion to intermittent dosing. Serum creatinine is down to 0.95. 12/06/2018-acute kidney injury has resolved. 12/07/2018-initial injury has resolved. Continue to monitor renal function. 12/08/2018-resolved. Continue to monitor with daily blood work 12/09/2018-has resolved so far. Continue to follow renal function. 12/10/2018-continue resolution. Continue to follow renal function. 12/11/2018-resolved. Daily BMPs (5) Cocaine use Is this a current diagnosis for this admission?: Yes Plan: 12/05/2018-toxicology screen was positive for cocaine on admission. The patient is past the window of any withdrawal. Will need to encourage cessation with outpatient rehab. The patient has exhibited marked noncompliance in the past. 12/06/2018-try to encourage an addiction support program as an outpatient 12/07/2018-May contributing factor to her recurrent illness he is and poor ab ility to recover. If the patient survives hopefully she will participate in a drug abuse treatment program. 12/08/2018-as above 12/09/2018-if patient provides event drug abuse treatment program would be beneficial 12/10/2018-continue to follow. Once patient is extubated offer drug abuse treatment programs 12/11/2018-encourage sobriety (6) Pneumonia Qualifiers: Pneumonia type: due to unspecified organism Laterality: bilateral Lung location: lower lobe of lung Qualified Code(s): J18.1 - Lobar pneumonia, unspecified organism Is this a current diagnosis for this admission?: Yes Plan: 12/05/2018-bilateral airspace disease. The patient completed therapy with Zosyn. White count has normalized. Still trying to wean from ventilator. Bronchoscopy performed today. Bronchial washings sent for culture to assess for any remaining infection. 12/06/2018-the patient did complete a course of Zosyn. Her white count remains normal however the bronchoscopy washings are growing gram-negative bacilli. I will await more information tomorrow and discuss with pulmonology. This may require antibiotic therapy and certainly could be causing slow weaning. 12/07/2018-the patient did undergo initial treatment with Zosyn for pneumonia. Bronchoscopy 48 hours ago supplied washings for culture. Klebsiella was isolated. It is sensitive to Rocephin and so the patient is on ceftriaxone. 12/08/2018-complete ceftriaxone as ordered 12/09/2018-bronchoscopy washings showed Klebsiella patient is on Rocephin. 12/10/2018-bronchial washing show Klebsiella continue on Rocephin 12/11/2018-bronchial washing with Klebsiella. Rocephin 1 g IV daily (7) Anasarca Is this a current diagnosis for this admission?: Yes Plan: 12/05/2018-continued improvement with a net negative fluid loss of over 10 L and commensurate weight loss. The patient is currently on infusion of furosemide. Nephrology reports that they will be changing to scheduled dosing and discontinuing the infusion in the next 24 to 48 hours. 12/06/2018-significant improvement from admission. Dr. Johnson has stopped the furosemide infusion and the patient is now on 40 mg IV every 12 hours. We will continue to monitor electrolytes, blood pressure and renal function. We will try and avoid a net positive fluid balance. 12/07/2018-resolved. The patient is currently on 40 mg of furosemide twice daily. We will monitor her intake and output and consider 20 mg twice daily and try to maintain normovolemia 12/08/2018-no change in treatment plan today 12/09/2018-improved. Patient remains on 40 mg IV Lasix twice daily. Will follow urine output and weight. 12/10/2018-improved continue Lasix 12/11/2018-improved continue Lasix. Creatinine normal at this time. (8) Anemia Qualifiers: Anemia type: iron deficiency Iron deficiency anemia type: inadequate dietary iron intake Qualified Code(s): D50.8 - Other iron deficiency anemias Is this a current diagnosis for this admission?: Yes Plan: 12/05/2018-hemoglobin today was 12.0. We will continue to monitor. No evidence of blood loss. 12/06/2018-hemoglobin remains stable. Monitor for blood loss. 12/07/2018-it appears that her critical illness anemia is recovering. 12/08/2018-currently with normal stable hemoglobin. Continue to monitor. 12/09/2018-resolved. Continue to follow daily CBCs 12/10/2018-resolved. Continue to follow daily CBCs 12/11/2018-resolved. Continue daily CBCs (9) Hyperbilirubinemia Is this a current diagnosis for this admission?: Yes Plan: 12/05/2018-total bilirubin is down to 1.9. This is improved from a total bilirubin greater than 4.0 last week. Acute liver injury secondary to sepsis. Continue to monitor liver function. 12/06/2018-as noted above total bilirubin was down to 1.9. I will recheck liver chemistries in several days. 12/07/2018-we will recheck bilirubin tomorrow. 12/08/2018-bilirubin remains elevated today. It is down to 2.0. Continue to monitor. 12/09/2018-total bili remains 2.0 today we will repeat LFTs in the a.m. 12/10/2018 LFTs with mild elevation of AST to 47. Bilirubin remains elevated most likely shock liver secondary to sepsis. 12/11/2018-repeat CMP in a.m. (10) Elevated LFTs Is this a current diagnosis for this admission?: Yes Plan: 12/05/2018-as noted above acute hepatic injury due to sepsis. Liver chemistries improving. Continue to monitor. 12/06/2018-as noted above we will monitor liver chemistries every several days. Blood work continues to improve. 12/07/2018-we will recheck liver chemistries tomorrow. 12/08/2018-bilirubin and alkaline phosphatase still remain elevated. Continue to monitor. I expect that these will recover over time. 12/09/2018-recheck liver chemistries tomorrow. 12/10/2018-mild elevation of AST of 47. Continue to follow 12/11/2018-patient had mild elevation of AST on 12/10. Repeat CMP in a.m. (11) Breast mass in female Is this a current diagnosis for this admission?: Yes (12) CHF (congestive heart failure) Qualifiers: Heart failure type: diastolic Is this a current diagnosis for this admission?: Yes Plan: 12/05/2018-the patient had an echocardiogram earlier this year. Her ejection fraction was 65 and she exhibited 1/4 diastolic dysfunction. We will continue management as outlined above. 12/06/2018-we will continue to monitor. With changes in medication will consider adding an LEONARDA inhibitor, angiotensin receptor tess and or Aldactone. Currently congestive heart failure is present but stable. We will begin to modify therapy as the patient recovers. 12/07/2018-does not appear that heart failure is a clinical concern at this time. Infection and dependent atelectasis as well as her morbid obesity appear to be the primary drivers for inability to extubate the patient. 12/08/2018-continue the same regimen at this time. 12/09/2018-improved stable. Patient continues on Lasix 40 mg IV twice daily. Patient continues to be ventilated with ET tube. Most likely dependent atelectasis, infection and immobility along with her morbid obesity are primary cause for inability to extubate. Most likely will receive trach and PEG. 12/10/2018-patient continues on Lasix 40 mg IV twice daily. Patient continues on ventilator. Continue to follow 12/11/2018-patient extubated at this time. Lasix 40 mill grams IV twice daily. Lungs are diminished throughout but I hear no rales at this time. Continue to follow (13) Morbid obesity with BMI of 40.0-44.9, adult Is this a current diagnosis for this admission?: Yes Plan: 12/05/2018-the patient is morbidly obese. Her BMI is 43. This could be causing morbid obesity hypoventilation making it difficult to wean her from the vent. She will benefit from weight loss. The noncompliance she has exhibited with regard to medications and her health in general makes it unlikely that she will comply with a weight loss diet. 12/06/2018-as above 12/07/2018-I believe the morbid obesity is clearly contributing to the difficulty in weaning. 12/08/2018-as above 12/09/2018-morbid obesity is contributing factor for difficulty in weaning patient continue to follow 12/11/2018-extubated. May require reintubation. Will educate about weight loss when patient is able to follow instructions - Time Time Spent with patient: 25-34 minutes - Inpatient Certification Based on my medical assessment, after consideration of the patient's comorbidi ties, presenting symptoms, or acuity I expect that the services needed warrant INPATIENT care.: Yes I certify that my determination is in accordance with my understanding of [facility]'s requirements for reasonable and necessary INPATIENT services [42 CFR 412.3e].: Yes Medical Necessity: Other - IV fluids, support ventilation
[2018-12-11 13:57] LABS: ARTERIAL BLOOD BASE EXCESS -1.3 mmol/L; ARTERIAL BLOOD FIO2 30%; ARTERIAL BLOOD H2CO3 1.28 mmol/L (1.05-1.35); ARTERIAL BLOOD O2 SATURATION 92.9 % (94-98); ARTERIAL BLOOD PCO2 42.4 mmHg (35-45); ARTERIAL BLOOD PH 7.37 (7.35-7.45); ARTERIAL BLOOD PO2 67.4 mmHg (80-100); ARTERIAL BLOOD TOTAL CO2 25.3 mmol/L (21-25)
[2018-12-11] MEDS: CEFTRIAXONE 1 GM/D5W RTU 1 GM/50 ML RTUPB IV SCH (14:03)
[2018-12-11] MEDS: ZIPRASIDONE MESYLATE INJ/PF 20 MG SDV IM PRN (22:15)
[2018-12-12] MEDS: LEVALBUTEROL HCL NEB 1.25 MG/3 ML AMPUL NEB SCH ×3 (00:23→16:02)
[2018-12-12] MEDS: IPRATROPIUM BROMIDE 0.02% NEB 0.5 MG/2.5 ML AMPUL NEB SCH ×3 (00:23→16:02)
[2018-12-12 04:05] LABS: ABSOLUTE BASOPHILS # (AUTO) 0.1 10^3/uL (0.0-0.2); ABSOLUTE LYMPHOCYTES (AUTO) 1.1 10^3/uL (0.5-4.7); ABSOLUTE MONOCYTES (AUTO) 0.4 10^3/uL (0.1-1.4); HEMATOCRIT 42.2 % (36.0-47.0); HEMOGLOBIN 13.4 g/dL (12.0-15.5); LYMPHOCYTES % (AUTO) 17.1 % (13-45); MEAN CORPUSCULAR HEMOGLOBIN 25.6 pg (27.0-33.4); MEAN CORPUSCULAR HGB CONC 31.8 g/dL (32.0-36.0); MEAN CORPUSCULAR VOLUME 81 fl (80-97); MONOCYTES % (AUTO) 5.5 % (3-13); PLATELET COUNT 703 10^3/uL (150-450); RED BLOOD COUNT 5.24 10^6/uL (3.72-5.28); RED CELL DISTRIBUTION WIDTH 20.9 % (11.5-14.0); SEGMENTED NEUTROPHILS % (AUTO) 76.4 % (42-78); TOTAL CELLS COUNTED % (AUTO) 100 %; WHITE BLOOD COUNT 6.5 10^3/uL (4.0-10.5)
[2018-12-12 04:25] LABS: ALBUMIN 4.5 g/dL (3.5-5.0); ALKALINE PHOSPHATASE 179 U/L (38-126); ANION GAP 18 (5-19); ASPARTATE AMINO TRANSFERASE 35 U/L (14-36); BILIRUBIN,DIRECT 1.9 mg/dL (0.0-0.4); BILIRUBIN,TOTAL 2.4 mg/dL (0.2-1.3); BLOOD UREA NITROGEN 17 mg/dL (7-20); CARBON DIOXIDE 23 mmol/L (22-30); CHLORIDE 104 mmol/L (98-107); GLUCOSE 125 mg/dL (75-110); PHOSPHORUS 5.9 mg/dL (2.5-4.5); POTASSIUM 3.9 mmol/L (3.6-5.0); TOTAL PROTEIN 9.9 g/dL (6.3-8.2)
[2018-12-12] MEDS: MIDAZOLAM 2 MG/2 ML INJ IV PRN (04:45)
[2018-12-12 06:17] LABS: ARTERIAL BLOOD BASE EXCESS 0.7 mmol/L; ARTERIAL BLOOD FIO2 30%; ARTERIAL BLOOD HCO3 25.9 mmol/L (20-24); ARTERIAL BLOOD O2 SATURATION 92.9 % (94-98); ARTERIAL BLOOD PCO2 43.3 mmHg (35-45); ARTERIAL BLOOD PH 7.39 (7.35-7.45); ARTERIAL BLOOD PO2 66.1 mmHg (80-100); ARTERIAL BLOOD TOTAL CO2 27.2 mmol/L (21-25)
[2018-12-12] MEDS: HEPARIN SOD (PORCINE) 5,000 UNIT/ML 1 ML VIAL SUBCUT SCH ×3 (06:23→21:43)
[2018-12-12] MEDS: ZIPRASIDONE MESYLATE INJ/PF 20 MG SDV IM PRN (06:46)
--- NOTE | 2018-12-12 08:22 | RADIOLOGY REPORT (SQ) ---
EXAM DESCRIPTION: CHEST SINGLE VIEW COMPLETED DATE/TIME: 12/12/2018 6:21 am REASON FOR STUDY: respiratory failure/intubation COMPARISON: None. EXAM PARAMETERS: NUMBER OF VIEWS: One view. TECHNIQUE: Single frontal radiographic view of the chest acquired. RADIATION DOSE: NA LIMITATIONS: None. FINDINGS: LUNGS AND PLEURA: Low lung volumes with persistent left retrocardiac opacities. No large effusion. No pneumothorax. MEDIASTINUM AND HILAR STRUCTURES: No masses. HEART AND VASCULAR STRUCTURES: Enlarged cardiac silhouette, stable since. Central vascular congestio n. BONES: No acute findings. HARDWARE: None in the chest. OTHER: No other significant finding. IMPRESSION: Low lung volumes with left retrocardiac opacity possibly atelectasis or infection. Stable enlarged cardiac silhouette and central vascular congestion. TECHNICAL DOCUMENTATION: JOB ID: [id number] [employer]- All Rights Reserved Reading location - IP/workstation name: [email or web address]
[2018-12-12] MEDS: BUDESONIDE NEB 0.5 MG/2 ML AMPUL NEB SCH ×2 (08:25→20:14)
[2018-12-12] MEDS: THIAMINE HCL 100 MG in NORMAL SALINE 50 ML IV SCH (10:10)
[2018-12-12] MEDS: PANTOPRAZOLE SODIUM 40 MG VIAL IV SCH (10:11)
[2018-12-12] MEDS: FUROSEMIDE INJ/PF 40 MG/4 ML SDV IV SCH ×2 (10:11→21:43)
[2018-12-12] MEDS: PANTOT AC/MIN OIL/PET HY-PHL OINT 50 GM TOP SCH ×2 (10:11→21:44)
[2018-12-12] MEDS: MULTIVITAMIN TABLET PO SCH (10:32)
--- NOTE | 2018-12-12 11:24 | PDOC PROGRESS REPORT ---
Subjective Progress Note for:: 12/12/18 Subjective:: 24 hours status post extubation stable Reason For Visit: ACUTE RESPIRATORY FAILURE WITH HYPOXIA Physical Exam Vital Signs: Temp Pulse Resp BP Pulse Ox 98.4 F 80 28 H 155/101 H 100 12/12/18 08:00 12/12/18 08:25 12/12/18 08:25 12/12/18 08:00 12/12/18 08:25 Intake & Output 12/11/18 12/12/18 12/13/18 06:59 06:59 06:59 Intake Total 1201 167 Output Total 2090 1794 354 Balance -889 -1628 -354 Weight 112.2 kg 110.1 kg General appearance: PRESENT: no acute distress, cooperative, disheveled, morbidly obese Head exam: PRESENT: atraumatic, normocephalic Eye exam: PRESENT: conjunctiva pale, EOMI. ABSENT: nystagmus Mouth exam: PRESENT: dry mucosa, neck supple, tongue midline Neck exam: ABSENT: carotid bruit, full ROM, JVD, lymphadenopathy, meningismus, tenderness, thyromegaly, tracheal deviation, tracheostomy, other Respiratory exam: PRESENT: decreased breath sounds, prolonged expiratory phas, rhonchi, symmetrical, unlabored. ABSENT: retraction, stridor Cardiovascular exam: PRESENT: RRR, +S1, +S2 Pulses: PRESENT: normal radial pulses GI/Abdominal exam: PRESENT: soft. ABSENT: distended, guarding, mass, tenderness Gentrourinary exam: PRESENT: indwelling catheter Extremities exam: ABSENT: calf tenderness, clubbing, joint swelling, tenderness Musculoskeletal exam: ABSENT: deformity, dislocation Neurological exam: PRESENT: altered, awake Psychiatric exam: PRESENT: flat affect Focused psych exam: PRESENT: internal stimuli Skin exam: PRESENT: dry, warm Results Laboratory Results: 12/12/18 03:49 12/12/18 03:49 12/11/18 12/12/18 12/12/18 13:34 03:49 03:49 WBC 6.5 RBC 5.24 Hgb 13.4 Hct 42.2 MCV 81 MCH 25.6 L MCHC 31.8 L RDW 20.9 H Plt Count 703 H Seg Neutrophils % 76.4 Carbonic Acid 1.28 HCO3/H2CO3 Ratio 18:1 ABG pH 7.37 ABG pCO2 42.4 ABG pO2 67.4 L ABG HCO3 24.0 ABG O2 Saturation 92.9 L ABG Base Excess -1.3 FiO2 30% Sodium 145.2 H Potassium 3.9 Chloride 104 Carbon Dioxide 23 Anion Gap 18 BUN 17 Creatinine 0.66 Est GFR ( Amer) > 60 Glucose 125 H Calcium 11.0 H Phosphorus 5.9 H Magnesium 1.7 Total Bilirubin 2.4 H AST 35 Alkaline Phosphatase 179 H Total Protein 9.9 H Albumin 4.5 12/12/18 05:50 WBC RBC Hgb Hct MCV MCH MCHC RDW Plt Count Seg Neutrophils % Carbonic Acid 1.30 HCO3/H2CO3 Ratio 19:1 ABG pH 7.39 ABG pCO2 43.3 ABG pO2 66.1 L ABG HCO3 25.9 H ABG O2 Saturation 92.9 L ABG Base Excess 0.7 FiO2 30% Sodium Potassium Chloride Carbon Dioxide Anion Gap BUN Creatinine Est GFR ( Amer) Glucose Calcium Phosphorus Magnesium Total Bilirubin AST Alkaline Phosphatase Total Protein Albumin 11/25/18 11/25/18 11/25/18 01:58 07:39 07:39 Creatine Kinase 50 CK-MB (CK-2) 0.53 Troponin I < 0.012 < 0.012 NT-Pro-B Natriuret Pep 766 H 11/25/18 11/25/18 11/25/18 12:03 12:03 18:17 Creatine Kinase 37 29 L CK-MB (CK-2) 0.37 Troponin I < 0.012 NT-Pro-B Natriuret Pep 11/25/18 11/26/18 18:17 03:32 Creatine Kinase CK-MB (CK-2) < 0.22 Troponin I < 0.012 NT-Pro-B Natriuret Pep 490 H Impressions: Abdomen Ultrasound 11/25/18 01:12 IMPRESSION: No free fluid identified within the upper quadrants. Evaluation of the lower quadrants was limited due to patient positioning as per the technologist. Head CT 11/27/18 00:00 IMPRESSION: Sinus disease. No acute intracranial imaging findings. EVIDENCE OF ACUTE STROKE: NO. Abdomen/Pelvis CT 12/03/18 00:00 IMPRESSION: Bilateral lower lobe consolidation -atelectasis. No pneumothorax pleural effusion. Endotracheal tube is present with tip 1.3 cm above the level of the kirill. IMPRESSION: Small amount of pelvic free fluid. No bowel dilatation. Chest CT 12/03/18 00:00 IMPRESSION: Bilateral lower lobe consolidation -atelectasis. No pneumothorax pleural effusion. Endotracheal tube is present with tip 1.3 cm above the level of the kirill. IMPRESSION: Small amount of pelvic free fluid. No bowel dilatation. KUB X-Ray 12/03/18 12:02 IMPRESSION: NO RADIOGRAPHIC EVIDENCE FOR ACUTE ABDOMINAL DISEASE.NG tube tip overlies the pyloric region of the stomach. Chest X-Ray 12/12/18 06:00 IMPRESSION: Low lung volumes with left retrocardiac opacity possibly atelectasis or infection. Stable enlarged cardiac silhouette and central vascular congestion. Assessment & Plan - Diagnosis (1) Acute respiratory failure with hypoxia Is this a current diagnosis for this admission?: Yes Plan: 4 hours status post extubation on BiPAP we will try high flow (2) CHF (congestive heart failure) Qualifiers: Heart failure type: diastolic Is this a current diagnosis for this admission?: Yes Plan: Improving (3) Cellulitis of both lower extremities Is this a current diagnosis for this admission?: No (4) Anasarca Is this a current diagnosis for this admission?: No (5) Morbid obesity with BMI of 40.0-44.9, adult Is this a current diagnosis for this admission?: Yes Plan: When stable consider nutritional consult (6) Tobacco dependence Is this a current diagnosis for this admission?: Yes Plan: Transdermal nicotine - Time Total Critical Time (Minutes): 40
--- NOTE | 2018-12-12 11:26 | PDOC PROGRESS REPORT ---
Subjective Progress Note for:: 12/08/18 Subjective:: Intubated and sedated Reason For Visit: ACUTE RESPIRATORY FAILURE WITH HYPOXIA Physical Exam Vital Signs: Temp Pulse Resp BP Pulse Ox 98.8 F 81 16 112/82 94 12/08/18 06:00 12/08/18 00:00 12/08/18 06:00 12/08/18 05:50 12/08/18 06:00 Intake & Output 12/07/18 12/08/18 12/09/18 06:59 06:59 06:59 Intake Total 971 1414 189 Output Total 1900 1540 Balance -929 -126 189 Weight 117.1 kg 115.6 kg General appearance: PRESENT: no acute distress, disheveled, morbidly obese. ABSENT: cooperative Head exam: PRESENT: atraumatic, normocephalic Eye exam: PRESENT: conjunctiva pale. ABSENT: nystagmus, periorbital swelling, scleral icterus Mouth exam: PRESENT: dry mucosa, neck supple, tongue midline, other - ET tube Neck exam: ABSENT: carotid bruit, full ROM, JVD, lymphadenopathy, meningismus, tenderness, thyromegaly, tracheal deviation, tracheostomy, other Respiratory exam: PRESENT: decreased breath sounds, prolonged expiratory phas, rales, rhonchi, symmetrical, unlabored. ABSENT: retraction, stridor Cardiovascular exam: PRESENT: RRR, +S1, +S2 Pulses: PRESENT: normal radial pulses GI/Abdominal exam: PRESENT: diminished bowel sounds, soft. ABSENT: distended, guarding, mass, rebound, tenderness Gentrourinary exam: PRESENT: indwelling catheter Extremities exam: PRESENT: pedal edema. ABSENT: calf tenderness, clubbing, joint swelling Musculoskeletal exam: ABSENT: ambulatory, deformity Neurological exam: ABSENT: awake Skin exam: PRESENT: dry, warm Results Laboratory Results: 12/08/18 05:02 12/08/18 05:02 12/07/18 12/08/18 12/08/18 08:23 04:50 05:02 WBC RBC Hgb Hct MCV MCH MCHC RDW Plt Count Seg Neutrophils % Carbonic Acid 1.23 HCO3/H2CO3 Ratio 21:1 ABG pH 7.43 ABG pCO2 40.7 ABG pO2 67.7 L ABG HCO3 26.2 H ABG O2 Saturation 93.9 L ABG Base Excess 1.7 FiO2 45% Sodium 141.3 Potassium 3.6 3.4 L Chloride 100 Carbon Dioxide 24 Anion Gap 17 BUN 15 Creatinine 0.78 Est GFR ( Amer) > 60 Glucose 87 Calcium 9.7 Magnesium 1.8 Total Bilirubin 2.0 H AST 55 H Alkaline Phosphatase 230 H Total Protein 8.6 H Albumin 3.9 12/08/18 05:02 WBC 6.8 RBC 4.76 Hgb 12.1 Hct 38.2 MCV 80 MCH 25.4 L MCHC 31.7 L RDW 20.8 H Plt Count 484 H Seg Neutrophils % 65.8 Carbonic Acid HCO3/H2CO3 Ratio ABG pH ABG pCO2 ABG pO2 ABG HCO3 ABG O2 Saturation ABG Base Excess FiO2 Sodium Potassium Chloride Carbon Dioxide Anion Gap BUN Creatinine Est GFR ( Amer) Glucose Calcium Magnesium Total Bilirubin AST Alkaline Phosphatase Total Protein Albumin 12/05/18 10:15 Bronchial Washings AFB Smear Concentration - Final 12/05/18 10:15 Bronchial Washings Acid Fast Bacilli Smear - Final 12/05/18 10:15 Bronchial Washings Gram Stain - Final 12/05/18 10:15 Bronchial Washings Bronchial Washings Culture - Final Klebsiella(Enterobac)Aerogenes Normal Chikis Absent 11/25/18 11/25/18 11/25/18 01:58 07:39 07:39 Creatine Kinase 50 CK-MB (CK-2) 0.53 Troponin I < 0.012 < 0.012 NT-Pro-B Natriuret Pep 766 H 11/25/18 11/25/18 11/25/18 12:03 12:03 18:17 Creatine Kinase 37 29 L CK-MB (CK-2) 0.37 Troponin I < 0.012 NT-Pro-B Natriuret Pep 11/25/18 11/26/18 18:17 03:32 Creatine Kinase CK-MB (CK-2) < 0.22 Troponin I < 0.012 NT-Pro-B Natriuret Pep 490 H Impressions: Abdomen Ultrasound 11/25/18 01:12 IMPRESSION: No free fluid identified within the upper quadrants. Evaluation of the lower quadrants was limited due to patient positioning as per the technologist. Head CT 11/27/18 00:00 IMPRESSION: Sinus disease. No acute intracranial imaging findings. EVIDENCE OF ACUTE STROKE: NO. Abdomen/Pelvis CT 12/03/18 00:00 IMPRESSION: Bilateral lower lobe consolidation -atelectasis. No pneumothorax pleural effusion. Endotracheal tube is present with tip 1.3 cm above the level of the kirill. IMPRESSION: Small amount of pelvic free fluid. No bowel dilatation. Chest CT 12/03/18 00:00 IMPRESSION: Bilateral lower lobe consolidation -atelectasis. No pneumothorax pleural effusion. Endotracheal tube is present with tip 1.3 cm above the level of the kirill. IMPRESSION: Small amount of pelvic free fluid. No bowel dilatation. KUB X-Ray 12/03/18 12:02 IMPRESSION: NO RADIOGRAPHIC EVIDENCE FOR ACUTE ABDOMINAL DISEASE.NG tube tip overlies the pyloric region of the stomach. Chest X-Ray 12/08/18 06:00 IMPRESSION: Subtle lucency is now noted in the right apex as described. Possibly artifact from something overlying the right apex. Small right apical pneumothorax cannot entirely be excluded. Assessment & Plan - Diagnosis (1) Acute respiratory failure with hypoxia Is this a current diagnosis for this admission?: Yes Plan: Current ventilator settings unfortunately not yet able to decrease FiO2 (2) CHF (congestive heart failure) Qualifiers: Heart failure type: diastolic Is this a current diagnosis for this admission?: Yes Plan: Improving (3) Cellulitis of both lower extremities Is this a current diagnosis for this admission?: Yes (4) Anasarca Is this a current diagnosis for this admission?: No (5) Morbid obesity with BMI of 40.0-44.9, adult Is this a current diagnosis for this admission?: Yes Plan: When stable consider nutritional consult (6) Tobacco dependence Is this a current diagnosis for this admission?: Yes Plan: Transdermal nicotine - Time Total Critical Time (Minutes): 45
[2018-12-12] MEDS: CEFTRIAXONE 1 GM/D5W RTU 1 GM/50 ML RTUPB IV SCH (12:10)
[2018-12-12 12:20] LABS: ARTERIAL BLOOD BASE EXCESS 0.4 mmol/L; ARTERIAL BLOOD HCO3 23.4 mmol/L (20-24); ARTERIAL BLOOD O2 SATURATION 96.6 % (94-98); ARTERIAL BLOOD PCO2 33.1 mmHg (35-45); ARTERIAL BLOOD PH 7.47 (7.35-7.45); ARTERIAL BLOOD PO2 80.4 mmHg (80-100); ARTERIAL BLOOD TOTAL CO2 24.5 mmol/L (21-25)
[2018-12-12 13:13] LABS: ARTERIAL BLOOD FIO2 2L
--- NOTE | 2018-12-12 14:04 | PDOC PROGRESS REPORT ---
Subjective Progress Note for:: 12/12/18 Subjective:: This is a 38-year-old female who presented with increasing shortness of breath, abdominal distention and increased bipedal edema. Patient was noted to be fluid overloaded upon presentation and was noted to have anasarca. She went into acute respiratory failure and required intubation. She was also found to have acute renal failure and positive cocaine in her UDS. She also was treated for alcohol withdrawal during this course. Her ICU course was prolonged due to difficulty weaning. She was eventually extubated yesterday 12/01 and was transitioned to BiPAP. Acute event overnight. Upon encounter, she is saturating and appears comfortable on BiPAP. She is oriented to person, place and time. She denies chest pain or shortness of breath. Reason For Visit: ACUTE RESPIRATORY FAILURE WITH HYPOXIA Physical Exam Vital Signs: Temp Pulse Resp BP Pulse Ox 98.4 F 81 27 H 105/73 99 12/12/18 08:00 12/12/18 10:00 12/12/18 10:00 12/12/18 10:00 12/12/18 10:00 Intake & Output 12/11/18 12/12/18 12/13/18 06:59 06:59 06:59 Intake Total 1201 167 Output Total 2090 1795 389 Balance -889 -1628 -389 Weight 247 lb 5.738 oz 242 lb 11.663 oz General appearance: PRESENT: no acute distress, obese Head exam: PRESENT: atraumatic, normocephalic Eye exam: PRESENT: conjunctiva pink, EOMI, PERRLA. ABSENT: scleral icterus Ear exam: PRESENT: normal external ear exam Mouth exam: PRESENT: moist, tongue midline Neck exam: ABSENT: carotid bruit, JVD, lymphadenopathy, thyromegaly Respiratory exam: PRESENT: rhonchi. ABSENT: rales, wheezes Cardiovascular exam: PRESENT: RRR. ABSENT: diastolic murmur, rubs, systolic murmur Pulses: PRESENT: normal dorsalis pedis pul GI/Abdominal exam: PRESENT: normal bowel sounds, soft. ABSENT: distended, guarding, mass, organolmegaly, rebound, tenderness Rectal exam: PRESENT: deferred Extremities exam: PRESENT: +2 edema Neurological exam: PRESENT: alert, awake, oriented to person, oriented to place, oriented to time, CN II-XII grossly intact. ABSENT: motor sensory deficit Results Laboratory Results: 12/12/18 03:49 12/12/18 03:49 12/11/18 12/12/18 12/12/18 13:34 03:49 03:49 WBC 6.5 RBC 5.24 Hgb 13.4 Hct 42.2 MCV 81 MCH 25.6 L MCHC 31.8 L RDW 20.9 H Plt Count 703 H Seg Neutrophils % 76.4 Carbonic Acid 1.28 HCO3/H2CO3 Ratio 18:1 ABG pH 7.37 ABG pCO2 42.4 ABG pO2 67.4 L ABG HCO3 24.0 ABG O2 Saturation 92.9 L ABG Base Excess -1.3 FiO2 30% Sodium 145.2 H Potassium 3.9 Chloride 104 Carbon Dioxide 23 Anion Gap 18 BUN 17 Creatinine 0.66 Est GFR ( Amer) > 60 Glucose 125 H Calcium 11.0 H Phosphorus 5.9 H Magnesium 1.7 Total Bilirubin 2.4 H AST 35 Alkaline Phosphatase 179 H Total Protein 9.9 H Albumin 4.5 12/12/18 05:50 WBC RBC Hgb Hct MCV MCH MCHC RDW Plt Count Seg Neutrophils % Carbonic Acid 1.30 HCO3/H2CO3 Ratio 19:1 ABG pH 7.39 ABG pCO2 43.3 ABG pO2 66.1 L ABG HCO3 25.9 H ABG O2 Saturation 92.9 L ABG Base Excess 0.7 FiO2 30% Sodium Potassium Chloride Carbon Dioxide Anion Gap BUN Creatinine Est GFR ( Amer) Glucose Calcium Phosphorus Magnesium Total Bilirubin AST Alkaline Phosphatase Total Protein Albumin 11/25/18 11/25/18 11/25/18 01:58 07:39 07:39 Creatine Kinase 50 CK-MB (CK-2) 0.53 Troponin I < 0.012 < 0.012 NT-Pro-B Natriuret Pep 766 H 11/25/18 11/25/18 11/25/18 12:03 12:03 18:17 Creatine Kinase 37 29 L CK-MB (CK-2) 0.37 Troponin I < 0.012 NT-Pro-B Natriuret Pep 11/25/18 11/26/18 18:17 03:32 Creatine Kinase CK-MB (CK-2) < 0.22 Troponin I < 0.012 NT-Pro-B Natriuret Pep 490 H Impressions: Abdomen Ultrasound 11/25/18 01:12 IMPRESSION: No free fluid identified within the upper quadrants. Evaluation of the lower quadrants was limited due to patient positioning as per the technologist. Head CT 11/27/18 00:00 IMPRESSION: Sinus disease. No acute intracranial imaging findings. EVIDENCE OF ACUTE STROKE: NO. Abdomen/Pelvis CT 12/03/18 00:00 IMPRESSION: Bilateral lower lobe consolidation -atelectasis. No pneumothorax pleural effusion. Endotracheal tube is present with tip 1.3 cm above the level of the kirill. IMPRESSION: Small amount of pelvic free fluid. No bowel dilatation. Chest CT 12/03/18 00:00 IMPRESSION: Bilateral lower lobe consolidation -atelectasis. No pneumothorax pleural effusion. Endotracheal tube is present with tip 1.3 cm above the level of the kirill. IMPRESSION: Small amount of pelvic free fluid. No bowel dilatation. KUB X-Ray 12/03/18 12:02 IMPRESSION: NO RADIOGRAPHIC EVIDENCE FOR ACUTE ABDOMINAL DISEASE.NG tube tip overlies the pyloric region of the stomach. Chest X-Ray 12/12/18 06:00 IMPRESSION: Low lung volumes with left retrocardiac opacity possibly at electasis or infection. Stable enlarged cardiac silhouette and central vascular congestion. Assessment and Plan - Diagnosis (1) Acute respiratory failure with hypoxia Is this a current diagnosis for this admission?: Yes Plan: Multifactorial from volume overload and pneumonia. S/P extubation on 12/01/18. Currently doing well on BIPAP. Will attempt to wean off BIPAP today. Pulmonolgy following. (2) Pneumonia Is this a current diagnosis for this admission?: Yes Plan: Chest CT did show lower lobe consolidation. She had a bronchoscopy and washings grew Klebsiella. Currently getting Rocephin. (3) Acute kidney injury Is this a current diagnosis for this admission?: Yes Plan: Resolved. (4) Cocaine use Is this a current diagnosis for this admission?: Yes Plan: Counseled on cessation. (5) Edema due to hypoalbuminemia Is this a current diagnosis for this admission?: Yes Plan: Improved. (6) Morbid obesity with BMI of 40.0-44.9, adult Is this a current diagnosis for this admission?: Yes Plan: Counseled on weight loss. - Time Time Spent with patient: 25-34 minutes
[2018-12-12] MEDS: MULTIVITAMIN ORAL LIQUID 60 ML NG SCH (18:46)
[2018-12-13] MEDS: LEVALBUTEROL HCL NEB 1.25 MG/3 ML AMPUL NEB SCH ×3 (01:29→16:42)
[2018-12-13] MEDS: IPRATROPIUM BROMIDE 0.02% NEB 0.5 MG/2.5 ML AMPUL NEB SCH ×3 (01:29→16:42)
[2018-12-13 03:11] LABS: ABSOLUTE BASOPHILS # (AUTO) 0.1 10^3/uL (0.0-0.2); ABSOLUTE EOSINOPHILS # (AUTO) 0.1 10^3/uL (0.0-0.6); ABSOLUTE LYMPHOCYTES (AUTO) 2.9 10^3/uL (0.5-4.7); ABSOLUTE MONOCYTES (AUTO) 0.7 10^3/uL (0.1-1.4); ABSOLUTE NEUT (AUTO) 4.9 10^3/uL (1.7-8.2); HEMATOCRIT 43.9 % (36.0-47.0); LYMPHOCYTES % (AUTO) 33.2 % (13-45); MEAN CORPUSCULAR HGB CONC 31.9 g/dL (32.0-36.0); MEAN CORPUSCULAR VOLUME 81 fl (80-97); MONOCYTES % (AUTO) 8.6 % (3-13); PLATELET COUNT 674 10^3/uL (150-450); RED CELL DISTRIBUTION WIDTH 20.6 % (11.5-14.0); SEGMENTED NEUTROPHILS % (AUTO) 56.2 % (42-78); TOTAL CELLS COUNTED % (AUTO) 100 %; WHITE BLOOD COUNT 8.7 10^3/uL (4.0-10.5)
[2018-12-13 03:38] LABS: ALBUMIN 4.4 g/dL (3.5-5.0); ALKALINE PHOSPHATASE 161 U/L (38-126); ANION GAP 17 (5-19); ASPARTATE AMINO TRANSFERASE 45 U/L (14-36); BILIRUBIN,DIRECT 1.9 mg/dL (0.0-0.4); BILIRUBIN,TOTAL 2.4 mg/dL (0.2-1.3); BLOOD UREA NITROGEN 18 mg/dL (7-20); CALCIUM 10.8 mg/dL (8.4-10.2); CARBON DIOXIDE 27 mmol/L (22-30); CHLORIDE 103 mmol/L (98-107); GLUCOSE 114 mg/dL (75-110); POTASSIUM 3.3 mmol/L (3.6-5.0); TOTAL PROTEIN 10.3 g/dL (6.3-8.2)
[2018-12-13 03:47] LABS: ARTERIAL BLOOD BASE EXCESS 7.2 mmol/L; ARTERIAL BLOOD FIO2 2L; ARTERIAL BLOOD H2CO3 1.31 mmol/L (1.05-1.35); ARTERIAL BLOOD HCO3 31.5 mmol/L (20-24); ARTERIAL BLOOD O2 SATURATION 92.7 % (94-98); ARTERIAL BLOOD PCO2 43.4 mmHg (35-45); ARTERIAL BLOOD PH 7.48 (7.35-7.45); ARTERIAL BLOOD PO2 60.5 mmHg (80-100); ARTERIAL BLOOD TOTAL CO2 32.9 mmol/L (21-25)
[2018-12-13] MEDS: HEPARIN SOD (PORCINE) 5,000 UNIT/ML 1 ML VIAL SUBCUT SCH ×3 (05:11→21:22)
--- NOTE | 2018-12-13 08:09 | RADIOLOGY REPORT (SQ) ---
EXAM DESCRIPTION: CHEST SINGLE VIEW COMPLETED DATE/TIME: 12/13/2018 6:41 am REASON FOR STUDY: pna COMPARISON: 12/12/2018 NUMBER OF VIEWS: One view. TECHNIQUE: Single frontal radiographic image of the chest acquired. LIMITATIONS: None. FINDINGS: LUNGS AND PLEURA: Stable appearance. MEDIASTINUM AND HILAR STRUCTURES: Stable heart size and mediastinal structures. HEART AND VASCULAR STRUCTURES: Stable appearance. BONES: No acute findings. HARDWARE: None in the chest. OTHER: No other significant finding. IMPRESSION: STABLE APPEARANCE OF THE CHEST. TECHNICAL DOCUMENTATION: JOB ID: [id number] [email or web address]- All Rights Reserved Reading location - IP/workstation name: [email or web address]
[2018-12-13] MEDS: BUDESONIDE NEB 0.5 MG/2 ML AMPUL NEB SCH ×2 (08:22→19:31)
[2018-12-13] MEDS: PANTOT AC/MIN OIL/PET HY-PHL OINT 50 GM TOP SCH ×2 (10:02→21:21)
[2018-12-13] MEDS: THIAMINE HCL 100 MG in NORMAL SALINE 50 ML IV SCH (10:02)
[2018-12-13] MEDS: PANTOPRAZOLE SODIUM 40 MG VIAL IV SCH (10:02)
[2018-12-13] MEDS: MULTIVITAMIN TABLET PO SCH (10:02)
[2018-12-13] MEDS: FUROSEMIDE INJ/PF 40 MG/4 ML SDV IV SCH (10:02)
--- NOTE | 2018-12-13 11:20 | PDOC PROGRESS REPORT ---
Subjective Progress Note for:: 12/13/18 Subjective:: Awake confused interacting Reason For Visit: ACUTE RESPIRATORY FAILURE WITH HYPOXIA Physical Exam Vital Signs: Temp Pulse Resp BP Pulse Ox 99.5 F 87 20 107/89 H 100 12/13/18 08:00 12/13/18 08:24 12/13/18 08:24 12/13/18 08:00 12/13/18 08:24 Intake & Output 12/12/18 12/13/18 12/14/18 06:59 06:59 06:59 Intake Total 167 101 Output Total 1795 2659 0 Balance -1628 -2558 0 Weight 110.1 kg 111.6 kg General appearance: PRESENT: no acute distress, cooperative, disheveled, morbidly obese Head exam: PRESENT: atraumatic, normocephalic Eye exam: PRESENT: conjunctiva pale, EOMI. ABSENT: nystagmus Mouth exam: PRESENT: dry mucosa, neck supple, tongue midline Neck exam: ABSENT: carotid bruit, full ROM, JVD, lymphadenopathy, meningismus, tenderness, thyromegaly, tracheal deviation, tracheostomy, other Respiratory exam: PRESENT: decreased breath sounds, prolonged expiratory phas, rales, rhonchi, unlabored. ABSENT: retraction Cardiovascular exam: PRESENT: RRR, +S1, +S2 Pulses: PRESENT: normal radial pulses GI/Abdominal exam: PRESENT: soft. ABSENT: distended, guarding, mass, tenderness Extremities exam: ABSENT: calf tenderness, clubbing, joint swelling, tenderness Musculoskeletal exam: ABSENT: ambulatory, deformity, dislocation Neurological exam: PRESENT: altered, awake Focused psych exam: PRESENT: delusional, flight of ideas, internal stimuli Skin exam: PRESENT: dry, warm Results Laboratory Results: 12/13/18 02:50 12/13/18 02:50 12/12/18 12/13/18 12/13/18 11:50 02:50 02:50 WBC 8.7 RBC 5.40 H Hgb 14.0 Hct 43.9 MCV 81 MCH 26.0 L MCHC 31.9 L RDW 20.6 H Plt Count 674 H Seg Neutrophils % 56.2 Carbonic Acid 1.00 L HCO3/H2CO3 Ratio 23:1 ABG pH 7.47 H ABG pCO2 33.1 L ABG pO2 80.4 ABG HCO3 23.4 ABG O2 Saturation 96.6 ABG Base Excess 0.4 FiO2 2L Sodium 146.9 H Potassium 3.3 L Chloride 103 Carbon Dioxide 27 Anion Gap 17 BUN 18 Creatinine 0.74 Est GFR ( Amer) > 60 Glucose 114 H Calcium 10.8 H Magnesium 1.7 Total Bilirubin 2.4 H AST 45 H Alkaline Phosphatase 161 H Total Protein 10.3 H Albumin 4.4 12/13/18 03:33 WBC RBC Hgb Hct MCV MCH MCHC RDW Plt Count Seg Neutrophils % Carbonic Acid 1.31 HCO3/H2CO3 Ratio 24:1 ABG pH 7.48 H ABG pCO2 43.4 ABG pO2 60.5 L ABG HCO3 31.5 H ABG O2 Saturation 92.7 L ABG Base Excess 7.2 FiO2 2L Sodium Potassium Chloride Carbon Dioxide Anion Gap BUN Creatinine Est GFR ( Amer) Glucose Calcium Magnesium Total Bilirubin AST Alkaline Phosphatase Total Protein Albumin 11/25/18 11/25/18 11/25/18 01:58 07:39 07:39 Creatine Kinase 50 CK-MB (CK-2) 0.53 Troponin I < 0.012 < 0.012 NT-Pro-B Natriuret Pep 766 H 11/25/18 11/25/18 11/25/18 12:03 12:03 18:17 Creatine Kinase 37 29 L CK-MB (CK-2) 0.37 Troponin I < 0.012 NT-Pro-B Natriuret Pep 11/25/18 11/26/18 18:17 03:32 Creatine Kinase CK-MB (CK-2) < 0.22 Troponin I < 0.012 NT-Pro-B Natriuret Pep 490 H Impressions: Abdomen Ultrasound 11/25/18 01:12 IMPRESSION: No free fluid identified within the upper quadrants. Evaluation of the lower quadrants was limited due to patient positioning as per the technologist. Head CT 11/27/18 00:00 IMPRESSION: Sinus disease. No acute intracranial imaging findings. EVIDENCE OF ACUTE STROKE: NO. Abdomen/Pelvis CT 12/03/18 00:00 IMPRESSION: Bilateral lower lobe consolidation -atelectasis. No pneumothorax pleural effusion. Endotracheal tube is present with tip 1.3 cm above the level of the kirill. IMPRESSION: Small amount of pelvic free fluid. No bowel dilatation. Chest CT 12/03/18 00:00 IMPRESSION: Bilateral lower lobe consolidation -atelectasis. No pneumothorax pleural effusion. Endotracheal tube is present with tip 1.3 cm above the level of the kirill. IMPRESSION: Small amount of pelvic free fluid. No bowel dilatation. KUB X-Ray 12/03/18 12:02 IMPRESSION: NO RADIOGRAPHIC EVIDENCE FOR ACUTE ABDOMINAL DISEASE.NG tube tip overlies the pyloric region of the stomach. Chest X-Ray 12/13/18 06:00 IMPRESSION: STABLE APPEARANCE OF THE CHEST. Assessment & Plan - Diagnosis (1) Acute respiratory failure with hypoxia Is this a current diagnosis for this admission?: Yes Plan: Nasal cannula is doing well 2 (2) CHF (congestive heart failure) Qualifiers: Heart failure type: diastolic Is this a current diagnosis for this admission?: Yes Plan: Improving (3) Morbid obesity with BMI of 40.0-44.9, adult Is this a current diagnosis for this admission?: Yes Plan: When stable consider nutritional consult (4) Tobacco dependence Is this a current diagnosis for this admission?: Yes Plan: Transdermal nicotine - Time Total Critical Time (Minutes): 40
[2018-12-13] MEDS: CEFTRIAXONE 1 GM/D5W RTU 1 GM/50 ML RTUPB IV SCH (11:23)
--- NOTE | 2018-12-13 15:41 | PDOC PROGRESS REPORT ---
Subjective Progress Note for:: 12/13/18 Subjective:: This is a 38-year-old female who presented with increasing shortness of breath, abdominal distention and increased bipedal edema. Patient was noted to be fluid overloaded upon presentation and was noted to have anasarca. She went into acute respiratory failure and required intubation. She was also found to have acute renal failure and positive cocaine in her UDS. She also was treated for alcohol withdrawal during this course. Her ICU course was prolonged due to difficulty weaning. She was eventually extubated yesterday 12/01 and was transitioned to BiPAP. 12/12: No acute event overnight. Upon encounter, she is saturating and appears comfortable on BiPAP. She is oriented to person, place and time. She denies chest pain or shortness of breath. 12/13: No acute issues. She continues to do well. She was weaned off the BiPAP and has been saturating well and comfortable on nasal cannula. He is also more coherent today and is well oriented x3. Reason For Visit: ACUTE RESPIRATORY FAILURE WITH HYPOXIA Physical Exam Vital Signs: Temp Pulse Resp BP Pulse Ox 99.7 F 110 H 36 H 130/85 H 100 12/13/18 14:00 12/13/18 14:00 12/13/18 14:00 12/13/18 14:00 12/13/18 14:00 Intake & Output 12/12/18 12/13/18 12/14/18 06:59 06:59 06:59 Intake Total 167 101 101 Output Total 1795 2659 770 Balance -1628 -2558 -669 Weight 242 lb 11.663 oz 246 lb 0.574 oz General appearance: PRESENT: no acute distress, morbidly obese Head exam: PRESENT: atraumatic, normocephalic Eye exam: PRESENT: conjunctiva pink, EOMI, PERRLA. ABSENT: scleral icterus Ear exam: PRESENT: normal external ear exam Mouth exam: PRESENT: moist, tongue midline Neck exam: ABSENT: carotid bruit, JVD, lymphadenopathy, thyromegaly Respiratory exam: PRESENT: rhonchi. ABSENT: rales, wheezes Cardiovascular exam: PRESENT: RRR. ABSENT: diastolic murmur, rubs, systolic murmur Pulses: PRESENT: normal dorsalis pedis pul GI/Abdominal exam: PRESENT: normal bowel sounds, soft. ABSENT: distended, guarding, mass, organolmegaly, rebound, tenderness Rectal exam: PRESENT: deferred Extremities exam: PRESENT: full ROM, +1 edema. ABSENT: calf tenderness, clubbing, pedal edema Neurological exam: PRESENT: alert, awake, oriented to person, oriented to place, oriented to time, oriented to situation, CN II-XII grossly intact. ABSENT: motor sensory deficit Results Laboratory Results: 12/13/18 02:50 12/13/18 02:50 12/13/18 12/13/18 12/13/18 02:50 02:50 03:33 WBC 8.7 RBC 5.40 H Hgb 14.0 Hct 43.9 MCV 81 MCH 26.0 L MCHC 31.9 L RDW 20.6 H Plt Count 674 H Seg Neutrophils % 56.2 Carbonic Acid 1.31 HCO3/H2CO3 Ratio 24:1 ABG pH 7.48 H ABG pCO2 43.4 ABG pO2 60.5 L ABG HCO3 31.5 H ABG O2 Saturation 92.7 L ABG Base Excess 7.2 FiO2 2L Sodium 146.9 H Potassium 3.3 L Chloride 103 Carbon Dioxide 27 Anion Gap 17 BUN 18 Creatinine 0.74 Est GFR ( Amer) > 60 Glucose 114 H Calcium 10.8 H Magnesium 1.7 Total Bilirubin 2.4 H AST 45 H Alkaline Phosphatase 161 H Total Protein 10.3 H Albumin 4.4 11/25/18 11/25/18 11/25/18 01:58 07:39 07:39 Creatine Kinase 50 CK-MB (CK-2) 0.53 Troponin I < 0.012 < 0.012 NT-Pro-B Natriuret Pep 766 H 11/25/18 11/25/18 11/25/18 12:03 12:03 18:17 Creatine Kinase 37 29 L CK-MB (CK-2) 0.37 Troponin I < 0.012 NT-Pro-B Natriuret Pep 11/25/18 11/26/18 18:17 03:32 Creatine Kinase CK-MB (CK-2) < 0.22 Troponin I < 0.012 NT-Pro-B Natriuret Pep 490 H Impressions: Abdomen Ultrasound 11/25/18 01:12 IMPRESSION: No free fluid identified within the upper quadrants. Evaluation of the lower quadrants was limited due to patient positioning as per the technologist. Head CT 11/27/18 00:00 IMPRESSION: Sinus disease. No acute intracranial imaging findings. EVIDENCE OF ACUTE STROKE: NO. Abdomen/Pelvis CT 12/03/18 00:00 IMPRESSION: Bilateral lower lobe consolidation -atelectasis. No pneumothorax pleural effusion. Endotracheal tube is present with tip 1.3 cm above the level of the kirill. IMPRESSION: Small amount of pelvic free fluid. No bowel dilatation. Chest CT 12/03/18 00:00 IMPRESSION: Bilateral lower lobe consolidation -atelectasis. No pneumothorax pleural effusion. Endotracheal tube is present with tip 1.3 cm above the level of the kirill. IMPRESSION: Small amount of pelvic free fluid. No bowel dilatation. KUB X-Ray 12/03/18 12:02 IMPRESSION: NO RADIOGRAPHIC EVIDENCE FOR ACUTE ABDOMINAL DISEASE.NG tube tip overlies the pyloric region of the stomach. Chest X-Ray 12/13/18 06:00 IMPRESSION: STABLE APPEARANCE OF THE CHEST. Assessment and Plan - Diagnosis (1) Acute respiratory failure with hypoxia Is this a current diagnosis for this admission?: Yes Plan: Multifactorial from volume overload, cocaine use, alcohol withdrawal and pneumonia. S/P extubation on 12/01/18. Currently doing well on BIPAP. Will attempt to wean off BIPAP today. Pulmonolgy following. 12/13: Resolved. Weaned off BIPAP. On nasal cannula. (2) Pneumonia Is this a current diagnosis for this admission?: Yes Plan: Chest CT did show lower lobe consolidation. She had a bronchoscopy and washings grew Klebsiella. Currently getting Rocephin. 12/13: Discontinue antibiotics. (3) Acute kidney injury Is this a current diagnosis for this admission?: Yes Plan: Resolved. (4) Cocaine use Is this a current diagnosis for this admission?: Yes Plan: Counseled on cessation. (5) Edema due to hypoalbuminemia Is this a current diagnosis for this admission?: Yes Plan: Improved. (6) Morbid obesity with BMI of 40.0-44.9, adult Is this a current diagnosis for this admission?: Yes Plan: Counseled on weight loss. - Time Time Spent with patient: 25-34 minutes
[2018-12-13] MEDS: LACTULOSE SYRUP 20 GM/30 ML UDCUP PO SCH (17:50)
[2018-12-13] MEDS ORDERED: (PENDING PHARMACY ID) (Lactulose [Constulose 10 Gm/15 Ml Oral Solution] 30 ML) PO SCH (18:00)
[2018-12-14] MEDS: CHLORPROMAZINE HCL INJ 25 MG/1 ML AMPULE IV PRN ×2 (00:05→18:27)
[2018-12-14] MEDS: IPRATROPIUM BROMIDE 0.02% NEB 0.5 MG/2.5 ML AMPUL NEB SCH ×3 (00:43→15:40)
[2018-12-14] MEDS: LEVALBUTEROL HCL NEB 1.25 MG/3 ML AMPUL NEB SCH ×3 (00:43→15:40)
[2018-12-14 04:24] LABS: ABSOLUTE BASOPHILS # (AUTO) 0.1 10^3/uL (0.0-0.2); ABSOLUTE EOSINOPHILS # (AUTO) 0.1 10^3/uL (0.0-0.6); ABSOLUTE LYMPHOCYTES (AUTO) 2.4 10^3/uL (0.5-4.7); ABSOLUTE MONOCYTES (AUTO) 0.9 10^3/uL (0.1-1.4); ABSOLUTE NEUT (AUTO) 4.7 10^3/uL (1.7-8.2); BASOPHILS % (AUTO) 1.5 % (0-2); EOSINOPHILS % (AUTO) 1.7 % (0-6); HEMATOCRIT 42.8 % (36.0-47.0); HEMOGLOBIN 13.7 g/dL (12.0-15.5); LYMPHOCYTES % (AUTO) 29.4 % (13-45); MEAN CORPUSCULAR VOLUME 81 fl (80-97); MONOCYTES % (AUTO) 10.8 % (3-13); PLATELET COUNT 628 10^3/uL (150-450); RED BLOOD COUNT 5.28 10^6/uL (3.72-5.28); RED CELL DISTRIBUTION WIDTH 20.8 % (11.5-14.0); SEGMENTED NEUTROPHILS % (AUTO) 56.6 % (42-78); TOTAL CELLS COUNTED % (AUTO) 100 %; WHITE BLOOD COUNT 8.3 10^3/uL (4.0-10.5)
[2018-12-14 04:47] LABS: ANION GAP 16 (5-19); BLOOD UREA NITROGEN 19 mg/dL (7-20); CALCIUM 10.8 mg/dL (8.4-10.2); CARBON DIOXIDE 29 mmol/L (22-30); CHLORIDE 100 mmol/L (98-107); GLUCOSE 120 mg/dL (75-110)
[2018-12-14] MEDS: HEPARIN SOD (PORCINE) 5,000 UNIT/ML 1 ML VIAL SUBCUT SCH ×3 (07:51→22:24)
[2018-12-14] MEDS: POTASSIUM CHLORIDE 20 MEQ/50 ML RTU IV SCH ×2 (07:52→10:07)
[2018-12-14] MEDS: MAGNESIUM SULFATE 1 GM/D5W 100 ML IV SCH ×2 (07:52→10:08)
[2018-12-14] MEDS: PANTOPRAZOLE SODIUM 40 MG TABLET.DR PO SCH (07:53)
[2018-12-14] MEDS: BUDESONIDE NEB 0.5 MG/2 ML AMPUL NEB SCH ×2 (08:58→20:24)
[2018-12-14] MEDS ORDERED: NICOTINE 14 MG/24 HR PATCH.TD24 TOP SCH (10:00)
[2018-12-14] MEDS ORDERED: MAGNESIUM SULFATE/D5W 1 GM/100 ML RTUPB IV ONE (10:03)
[2018-12-14] MEDS: FUROSEMIDE 40 MG TABLET PO SCH (10:05)
[2018-12-14] MEDS: MULTIVITAMIN TABLET PO SCH (10:05)
[2018-12-14] MEDS: THIAMINE HCL 100 MG TABLET PO SCH (10:06)
[2018-12-14] MEDS: LACTULOSE SYRUP 20 GM/30 ML UDCUP PO SCH ×2 (10:06→17:16)
[2018-12-14] MEDS: PANTOT AC/MIN OIL/PET HY-PHL OINT 50 GM TOP SCH ×2 (10:21→22:25)
--- NOTE | 2018-12-14 10:49 | RADIOLOGY REPORT (SQ) ---
EXAM DESCRIPTION: CHEST SINGLE VIEW COMPLETED DATE/TIME: 12/14/2018 8:42 am REASON FOR STUDY: pna COMPARISON: Chest film 12/02/2018 CT chest 12/03/2018 Chest films 12/11/2018, 12/12/2018, 12/13/2018 EXAM PARAMETERS: NUMBER OF VIEWS: One view. TECHNIQUE: Single frontal radiographic view of the chest acquired. RADIATION DOSE: NA LIMITATIONS: [employer] portable film FINDINGS: LUNGS AND PLEURA: Mild bibasilar atelectasis. No fluffy alveolar infiltrates worrisome for pulmonary edema. No pleural effusion. No pneumothorax. MEDIASTINUM AND HILAR STRUCTURES: No masses. Contour normal. HEART AND VASCULAR STRUCTURES: Stable cardiomegaly BONES: No acute findings. HARDWARE: None in the chest. OTHER: No other significant finding. IMPRESSION: Cardiomegaly, bibasilar atelectasis TECHNICAL DOCUMENTATION: JOB ID: [id number] [employer]- All Rights Reserved Reading location - IP/workstation name: [email or web address]
--- NOTE | 2018-12-14 11:20 | PDOC PROGRESS REPORT ---
Subjective Progress Note for:: 12/14/18 Subjective:: Awake confused interacting essentially unchanged Reason For Visit: ACUTE RESPIRATORY FAILURE WITH HYPOXIA Physical Exam Vital Signs: Temp Pulse Resp BP Pulse Ox 99.5 F 103 H 27 H 109/54 L 89 L 12/14/18 07:32 12/14/18 07:32 12/14/18 07:32 12/14/18 07:32 12/14/18 07:32 Intake & Output 12/13/18 12/14/18 12/15/18 06:59 06:59 06:59 Intake Total 101 221 Output Total 2659 1140 Balance -7764 -919 Weight 111.6 kg 110.5 kg General appearance: PRESENT: no acute distress, cooperative, disheveled, morbidly obese Head exam: PRESENT: atraumatic, normocephalic Eye exam: PRESENT: conjunctiva pale, EOMI. ABSENT: nystagmus, periorbital swelling, scleral icterus Mouth exam: PRESENT: moist, neck supple, tongue midline Neck exam: ABSENT: carotid bruit, full ROM, JVD, lymphadenopathy, meningismus, tenderness, thyromegaly, tracheal deviation, tracheostomy, other Respiratory exam: PRESENT: decreased breath sounds, prolonged expiratory phas, rales, rhonchi, unlabored. ABSENT: retraction, stridor, tachypnea Cardiovascular exam: PRESENT: RRR, +S1, +S2. ABSENT: tachycardia Pulses: PRESENT: normal radial pulses GI/Abdominal exam: PRESENT: normal bowel sounds, soft. ABSENT: distended, guarding, mass, rebound, tenderness Extremities exam: PRESENT: pedal edema. ABSENT: calf tenderness, clubbing, full ROM, joint swelling, tenderness Musculoskeletal exam: ABSENT: ambulatory, deformity, dislocation Neurological exam: PRESENT: altered, awake Psychiatric exam: PRESENT: unusual affect Focused psych exam: PRESENT: delusional, flight of ideas, internal stimuli Skin exam: PRESENT: dry, warm Results Laboratory Results: 12/14/18 04:00 12/14/18 04:00 12/14/18 12/14/18 04:00 04:00 WBC 8.3 RBC 5.28 Hgb 13.7 Hct 42.8 MCV 81 MCH 26.0 L MCHC 32.0 RDW 20.8 H Plt Count 628 H Seg Neutrophils % 56.6 Sodium 144.5 Potassium 3.0 L* Chloride 100 Carbon Dioxide 29 Anion Gap 16 BUN 19 Creatinine 0.82 Est GFR ( Amer) > 60 Glucose 120 H Calcium 10.8 H Magnesium 1.4 L 11/25/18 11/25/18 11/25/18 01:58 07:39 07:39 Creatine Kinase 50 CK-MB (CK-2) 0.53 Troponin I < 0.012 < 0.012 NT-Pro-B Natriuret Pep 766 H 11/25/18 11/25/18 11/25/18 12:03 12:03 18:17 Creatine Kinase 37 29 L CK-MB (CK-2) 0.37 Troponin I < 0.012 NT-Pro-B Natriuret Pep 11/25/18 11/26/18 18:17 03:32 Creatine Kinase CK-MB (CK-2) < 0.22 Troponin I < 0.012 NT-Pro-B Natriuret Pep 490 H Impressions: Abdomen Ultrasound 11/25/18 01:12 IMPRESSION: No free fluid identified within the upper quadrants. Evaluation of the lower quadrants was limited due to patient positioning as per the technologist. Head CT 11/27/18 00:00 IMPRESSION: Sinus disease. No acute intracranial imaging findings. EVIDENCE OF ACUTE STROKE: NO. Abdomen/Pelvis CT 12/03/18 00:00 IMPRESSION: Bilateral lower lobe consolidation -atelectasis. No pneumothorax pleural effusion. Endotracheal tube is present with tip 1.3 cm above the level of the kirill. IMPRESSION: Small amount of pelvic free fluid. No bowel dilatation. Chest CT 12/03/18 00:00 IMPRESSION: Bilateral lower lobe consolidation -atelectasis. No pneumothorax pleural effusion. Endotracheal tube is present with tip 1.3 cm above the level of the kirill. IMPRESSION: Small amount of pelvic free fluid. No bowel dilatation. KUB X-Ray 12/03/18 12:02 IMPRESSION: NO RADIOGRAPHIC EVIDENCE FOR ACUTE ABDOMINAL DISEASE.NG tube tip overlies the pyloric region of the stomach. Assessment & Plan - Diagnosis (1) Acute respiratory failure with hypoxia Is this a current diagnosis for this admission?: Yes Plan: Nasal cannula 2 L (2) CHF (congestive heart failure) Qualifiers: Heart failure type: diastolic Is this a current diagnosis for this admission?: Yes Plan: Improving (3) Morbid obesity with BMI of 40.0-44.9, adult Is this a current diagnosis for this admission?: Yes Plan: When stable consider nutritional consult (4) Tobacco dependence Is this a current diagnosis for this admission?: Yes Plan: Transdermal nicotine - Time Total Critical Time (Minutes): 40
[2018-12-14] MEDS ORDERED: HALOPERIDOL LACTATE INJ 5 MG/1 ML VIAL IV PRN (13:28)
--- NOTE | 2018-12-14 13:50 | PDOC PROGRESS REPORT ---
Subjective Progress Note for:: 12/14/18 Subjective:: This is a 38-year-old female who presented with increasing shortness of breath, abdominal distention and increased bipedal edema. Patient was noted to be fluid overloaded upon presentation and was noted to have anasarca. She went into acute respiratory failure and required intubation. She was also found to have acute renal failure and positive cocaine in her UDS. She also was treated for alcohol withdrawal during this course. Her ICU course was prolonged due to difficulty weaning. She was eventually extubated yesterday 12/01 and was transitioned to BiPAP. 12/12: No acute event overnight. Upon encounter, she is saturating and appears comfortable on BiPAP. She is oriented to person, place and time. She denies chest pain or shortness of breath. 12/13: She continues to do well. She was weaned off the BiPAP and has been saturating well and comfortable on nasal cannula. He is also more coherent today and is well oriented x3. 12/14: No acute issues. She was restless this morning and asked staff if she could smoke. She continues to do well off the BIPAP. Deenis chest pain or SOB. She was evaluated by PT yesterday and was noted to be weak and deconditioned. Reason For Visit: ACUTE RESPIRATORY FAILURE WITH HYPOXIA Physical Exam Vital Signs: Temp Pulse Resp BP Pulse Ox 99.5 F 105 H 21 H 119/83 96 12/14/18 12:00 12/14/18 12:00 12/14/18 12:00 12/14/18 12:00 12/14/18 12:00 Intake & Output 12/13/18 12/14/18 12/15/18 06:59 06:59 06:59 Intake Total 101 221 150 Output Total 2659 1140 Balance -7428 -919 150 Weight 246 lb 0.574 oz 243 lb 9.773 oz General appearance: PRESENT: no acute distress, morbidly obese Head exam: PRESENT: atraumatic, normocephalic Eye exam: PRESENT: conjunctiva pink, EOMI, PERRLA. ABSENT: scleral icterus Ear exam: PRESENT: normal external ear exam Mouth exam: PRESENT: moist, tongue midline Neck exam: ABSENT: carotid bruit, JVD, lymphadenopathy, thyromegaly Respiratory exam: PRESENT: clear to auscultation linda. ABSENT: rales, rhonchi, wheezes Cardiovascular exam: PRESENT: RRR. ABSENT: diastolic murmur, rubs, systolic murmur Pulses: PRESENT: normal dorsalis pedis pul GI/Abdominal exam: PRESENT: normal bowel sounds, soft. ABSENT: distended, guarding, mass, organolmegaly, rebound, tenderness Rectal exam: PRESENT: deferred Neurological exam: PRESENT: alert, awake, oriented to person, oriented to place, CN II-XII grossly intact. ABSENT: motor sensory deficit Results Laboratory Results: 12/14/18 04:00 12/14/18 04:00 12/14/18 12/14/18 04:00 04:00 WBC 8.3 RBC 5.28 Hgb 13.7 Hct 42.8 MCV 81 MCH 26.0 L MCHC 32.0 RDW 20.8 H Plt Count 628 H Seg Neutrophils % 56.6 Sodium 144.5 Potassium 3.0 L* Chloride 100 Carbon Dioxide 29 Anion Gap 16 BUN 19 Creatinine 0.82 Est GFR ( Amer) > 60 Glucose 120 H Calcium 10.8 H Magnesium 1.4 L 12/05/18 10:15 Bronchial Washings Fungal Smear - Final 12/05/18 10:15 Bronchial Washings Fungal Smear - Final 11/25/18 11/25/18 11/25/18 01:58 07:39 07:39 Creatine Kinase 50 CK-MB (CK-2) 0.53 Troponin I < 0.012 < 0.012 NT-Pro-B Natriuret Pep 766 H 11/25/18 11/25/18 11/25/18 12:03 12:03 18:17 Creatine Kinase 37 29 L CK-MB (CK-2) 0.37 Troponin I < 0.012 NT-Pro-B Natriuret Pep 11/25/18 11/26/18 18:17 03:32 Creatine Kinase CK-MB (CK-2) < 0.22 Troponin I < 0.012 NT-Pro-B Natriuret Pep 490 H Impressions: Abdomen Ultrasound 11/25/18 01:12 IMPRESSION: No free fluid identified within the upper quadrants. Evaluation of the lower quadrants was limited due to patient positioning as per the technologist. Head CT 11/27/18 00:00 IMPRESSION: Sinus disease. No acute intracranial imaging findings. EVIDENCE OF ACUTE STROKE: NO. Abdomen/Pelvis CT 12/03/18 00:00 IMPRESSION: Bilateral lower lobe consolidation -atelectasis. No pneumothorax pleural effusion. Endotracheal tube is present with tip 1.3 cm above the level of the kirill. IMPRESSION: Small amount of pelvic free fluid. No bowel dilatation. Chest CT 12/03/18 00:00 IMPRESSION: Bilateral lower lobe consolidation -atelectasis. No pneumothorax pleural effusion. Endotracheal tube is present with tip 1.3 cm above the level of the kirill. IMPRESSION: Small amount of pelvic free fluid. No bowel dilatation. KUB X-Ray 12/03/18 12:02 IMPRESSION: NO RADIOGRAPHIC EVIDENCE FOR ACUTE ABDOMINAL DISEASE.NG tube tip overlies the pyloric region of the stomach. Chest X-Ray 12/14/18 06:00 IMPRESSION: Cardiomegaly, bibasilar atelectasis Assessment and Plan - Diagnosis (1) Acute respiratory failure with hypoxia Is this a current diagnosis for this admission?: Yes Plan: Multifactorial from volume overload, cocaine use, alcohol withdrawal and pneumonia. S/P extubation on 12/01/18. Currently doing well on BIPAP. Will attempt to wean off BIPAP today. Pulmonolgy following. 12/13: Resolved. Weaned off BIPAP. On nasal cannula. (2) Pneumonia Is this a current diagnosis for this admission?: Yes Plan: Chest CT did show lower lobe consolidation. She had a bronchoscopy and washings grew Klebsiella. Currently getting Rocephin. 12/13: Discontinue antibiotics. (3) Acute kidney injury Is this a current diagnosis for this admission?: Yes Plan: Resolved. (4) Cocaine use Is this a current diagnosis for this admission?: Yes Plan: Counseled on cessation. (5) Edema due to hypoalbuminemia Is this a current diagnosis for this admission?: Yes Plan: Improved. (6) Morbid obesity with BMI of 40.0-44.9, adult Is this a current diagnosis for this admission?: Yes Plan: Counseled on weight loss. - Time Time Spent with patient: 25-34 minutes
[2018-12-14] MEDS: NICOTINE 21 MG/24 HR PATCH.TD24 TD SCH (17:15)
[2018-12-15] MEDS: IPRATROPIUM BROMIDE 0.02% NEB 0.5 MG/2.5 ML AMPUL NEB SCH ×4 (00:42→23:49)
[2018-12-15] MEDS: LEVALBUTEROL HCL NEB 1.25 MG/3 ML AMPUL NEB SCH ×4 (00:42→23:49)
[2018-12-15 04:04] LABS: ABSOLUTE BASOPHILS # (AUTO) 0.1 10^3/uL (0.0-0.2); ABSOLUTE EOSINOPHILS # (AUTO) 0.3 10^3/uL (0.0-0.6); ABSOLUTE LYMPHOCYTES (AUTO) 2.2 10^3/uL (0.5-4.7); ABSOLUTE MONOCYTES (AUTO) 0.8 10^3/uL (0.1-1.4); ABSOLUTE NEUT (AUTO) 5.5 10^3/uL (1.7-8.2); BASOPHILS % (AUTO) 1.4 % (0-2); EOSINOPHILS % (AUTO) 3.2 % (0-6); HEMATOCRIT 40.4 % (36.0-47.0); LYMPHOCYTES % (AUTO) 24.9 % (13-45); MEAN CORPUSCULAR HEMOGLOBIN 26.3 pg (27.0-33.4); MEAN CORPUSCULAR HGB CONC 32.1 g/dL (32.0-36.0); MEAN CORPUSCULAR VOLUME 82 fl (80-97); MONOCYTES % (AUTO) 8.6 % (3-13); PLATELET COUNT 529 10^3/uL (150-450); RED BLOOD COUNT 4.93 10^6/uL (3.72-5.28); RED CELL DISTRIBUTION WIDTH 20.4 % (11.5-14.0); SEGMENTED NEUTROPHILS % (AUTO) 61.9 % (42-78); TOTAL CELLS COUNTED % (AUTO) 100 %; WHITE BLOOD COUNT 8.9 10^3/uL (4.0-10.5)
[2018-12-15 04:37] LABS: ANION GAP 13 (5-19); BLOOD UREA NITROGEN 24 mg/dL (7-20); CALCIUM 10.8 mg/dL (8.4-10.2); CARBON DIOXIDE 30 mmol/L (22-30); CHLORIDE 100 mmol/L (98-107); GLUCOSE 123 mg/dL (75-110); PHOSPHORUS 8.2 mg/dL (2.5-4.5)
[2018-12-15] MEDS: HEPARIN SOD (PORCINE) 5,000 UNIT/ML 1 ML VIAL SUBCUT SCH ×3 (06:12→23:10)
[2018-12-15] MEDS: POTASSIUM CHLORIDE 10 MEQ CAPSULE.ER PO SCH ×2 (06:13→17:53)
[2018-12-15] MEDS: PANTOPRAZOLE SODIUM 40 MG TABLET.DR PO SCH (06:13)
--- NOTE | 2018-12-15 08:14 | RADIOLOGY REPORT (SQ) ---
EXAM DESCRIPTION: CHEST SINGLE VIEW COMPLETED DATE/TIME: 12/15/2018 6:41 am REASON FOR STUDY: pna COMPARISON: 12/14/2018 NUMBER OF VIEWS: One view. TECHNIQUE: Single frontal radiographic image of the chest acquired. LIMITATIONS: None. FINDINGS: LUNGS AND PLEURA: Stable appearance. MEDIASTINUM AND HILAR STRUCTURES: Stable heart size and mediastinal structures. HEART AND VASCULAR STRUCTURES: Stable appearance. BONES: No acute findings. HARDWARE: None in the chest. OTHER: No other significant finding. IMPRESSION: STABLE APPEARANCE OF THE CHEST. TECHNICAL DOCUMENTATION: JOB ID: [id number] [employer]- All Rights Reserved Reading location - IP/workstation name: [email or web address]
[2018-12-15] MEDS: BUDESONIDE NEB 0.5 MG/2 ML AMPUL NEB SCH ×2 (08:18→19:34)
[2018-12-15] MEDS: LACTULOSE SYRUP 20 GM/30 ML UDCUP PO SCH ×2 (09:24→17:53)
[2018-12-15] MEDS: THIAMINE HCL 100 MG TABLET PO SCH (09:29)
[2018-12-15] MEDS: FUROSEMIDE 40 MG TABLET PO SCH (09:29)
[2018-12-15] MEDS: PANTOT AC/MIN OIL/PET HY-PHL OINT 50 GM TOP SCH ×2 (09:31→23:10)
[2018-12-15] MEDS: NICOTINE 21 MG/24 HR PATCH.TD24 TD SCH (09:31)
[2018-12-15] MEDS: MULTIVITAMIN TABLET PO SCH (09:32)
[2018-12-15] MEDS ORDERED: POTASSIUM CHLORIDE 10 MEQ CAPSULE.ER PO SCH (10:00)
--- NOTE | 2018-12-15 10:01 | PDOC PROGRESS REPORT ---
Subjective Progress Note for:: 12/15/18 Subjective:: Awake confused essentially unchanged Reason For Visit: ACUTE RESPIRATORY FAILURE WITH HYPOXIA Physical Exam Vital Signs: Temp Pulse Resp BP Pulse Ox 98.6 F 95 22 H 117/87 H 94 12/15/18 08:00 12/15/18 08:20 12/15/18 08:20 12/15/18 08:00 12/15/18 08:20 Intake & Output 12/14/18 12/15/18 12/16/18 06:59 06:59 06:59 Intake Total 221 150 Output Total 1140 365 Balance -919 -215 Weight 110.5 kg 106.8 kg General appearance: PRESENT: no acute distress, disheveled, morbidly obese Head exam: PRESENT: atraumatic, normocephalic Eye exam: PRESENT: conjunctiva pale, EOMI. ABSENT: nystagmus, periorbital swelling Mouth exam: PRESENT: moist, neck supple, tongue midline Neck exam: ABSENT: carotid bruit, full ROM, JVD, lymphadenopathy, meningismus, tenderness, thyromegaly, tracheal deviation, tracheostomy, other Respiratory exam: PRESENT: rales, rhonchi, symmetrical, unlabored. ABSENT: retraction, stridor, tachypnea Cardiovascular exam: PRESENT: RRR, +S1, +S2 Pulses: PRESENT: normal radial pulses GI/Abdominal exam: PRESENT: normal bowel sounds, soft. ABSENT: distended, guarding, mass, rebound, tenderness Extremities exam: ABSENT: calf tenderness, clubbing, joint swelling, tenderness Musculoskeletal exam: ABSENT: ambulatory, deformity, dislocation Neurological exam: PRESENT: altered Psychiatric exam: PRESENT: flat affect Skin exam: PRESENT: dry, warm Results Laboratory Results: 12/15/18 03:42 12/15/18 03:42 12/15/18 12/15/18 03:42 03:42 WBC 8.9 RBC 4.93 Hgb 13.0 Hct 40.4 MCV 82 MCH 26.3 L MCHC 32.1 RDW 20.4 H Plt Count 529 H Seg Neutrophils % 61.9 Sodium 142.9 Potassium 3.0 L* Chloride 100 Carbon Dioxide 30 Anion Gap 13 BUN 24 H Creatinine 0.89 Est GFR ( Amer) > 60 Glucose 123 H Calcium 10.8 H Phosphorus 8.2 H Magnesium 1.8 12/05/18 10:15 Bronchial Washings Fungal Smear - Final 12/05/18 10:15 Bronchial Washings Fungal Smear - Final 11/25/18 11/25/18 11/25/18 01:58 07:39 07:39 Creatine Kinase 50 CK-MB (CK-2) 0.53 Troponin I < 0.012 < 0.012 NT-Pro-B Natriuret Pep 766 H 11/25/18 11/25/18 11/25/18 12:03 12:03 18:17 Creatine Kinase 37 29 L CK-MB (CK-2) 0.37 Troponin I < 0.012 NT-Pro-B Natriuret Pep 11/25/18 11/26/18 18:17 03:32 Creatine Kinase CK-MB (CK-2) < 0.22 Troponin I < 0.012 NT-Pro-B Natriuret Pep 490 H Impressions: Abdomen Ultrasound 11/25/18 01:12 IMPRESSION: No free fluid identified within the upper quadrants. Evaluation of the lower quadrants was limited due to patient positioning as per the technologist. Head CT 11/27/18 00:00 IMPRESSION: Sinus disease. No acute intracranial imaging findings. EVIDENCE OF ACUTE STROKE: NO. Abdomen/Pelvis CT 12/03/18 00:00 IMPRESSION: Bilateral lower lobe consolidation -atelectasis. No pneumothorax pleural effusion. Endotracheal tube is present with tip 1.3 cm above the level of the kirill. IMPRESSION: Small amount of pelvic free fluid. No bowel dilatation. Chest CT 12/03/18 00:00 IMPRESSION: Bilateral lower lobe consolidation -atelectasis. No pneumothorax pleural effusion. Endotracheal tube is present with tip 1.3 cm above the level of the kirill. IMPRESSION: Small amount of pelvic free fluid. No bowel dilatation. KUB X-Ray 12/03/18 12:02 IMPRESSION: NO RADIOGRAPHIC EVIDENCE FOR ACUTE ABDOMINAL DISEASE.NG tube tip overlies the pyloric region of the stomach. Chest X-Ray 12/15/18 06:00 IMPRESSION: STABLE APPEARANCE OF THE CHEST. Assessment & Plan - Diagnosis (1) Acute respiratory failure with hypoxia Is this a current diagnosis for this admission?: Yes Plan: Resolved (2) CHF (congestive heart failure) Qualifiers: Heart failure type: diastolic Is this a current diagnosis for this admission?: Yes Plan: Improving suspect she is near her baseline (3) Morbid obesity with BMI of 40.0-44.9, adult Is this a current diagnosis for this admission?: Yes Plan: When stable consider nutritional consult (4) Tobacco dependence Is this a current diagnosis for this admission?: Yes Plan: Transdermal nicotine - Time Total Critical Time (Minutes): 40
[2018-12-15 10:37] LABS: ALBUMIN URINE 64.5 % (.); ALPHA-2-GLOBULIN UR 3.7 % (.); GAMMA GLOBULIN UR 16.6 % (.); M-SPIKE % URINE Not Observed % (Not Observ); PROTEIN TOTAL URINE 21.9 mg/dL (Not Estab.)
[2018-12-15] MEDS: ZIPRASIDONE MESYLATE INJ/PF 20 MG SDV IM PRN (15:14)
--- NOTE | 2018-12-15 16:34 | PDOC PROGRESS REPORT ---
Subjective Progress Note for:: 12/15/18 Subjective:: This is a 38-year-old female who presented with increasing shortness of breath, abdominal distention and increased bipedal edema. Patient was noted to be fluid overloaded upon presentation and was noted to have anasarca. She went into acute respiratory failure and required intubation. She was also found to have acute renal failure and positive cocaine in her UDS. She also was treated for alcohol withdrawal during this course. Her ICU course was prolonged due to difficulty weaning. She was eventually extubated yesterday 12/01 and was transitioned to BiPAP. 12/12: No acute event overnight. Upon encounter, she is saturating and appears comfortable on BiPAP. She is oriented to person, place and time. She denies chest pain or shortness of breath. 12/13: She continues to do well. She was weaned off the BiPAP and has been saturating well and comfortable on nasal cannula. He is also more coherent today and is well oriented x3. 12/14: She was restless this morning and asked staff if she could smoke. She continues to do well off the BIPAP. Denies chest pain or SOB. She was evaluated by PT yesterday and was noted to be weak and deconditioned. 12/15: No acute event overnight. She is slowly regaining her strength. She denies acute complaints. We will have PT reevaluate her today. Reason For Visit: ACUTE RESPIRATORY FAILURE WITH HYPOXIA Physical Exam Vital Signs: Temp Pulse Resp BP Pulse Ox 97.4 F 97 17 109/70 95 12/15/18 11:04 12/15/18 11:04 12/15/18 11:04 12/15/18 11:04 12/15/18 11:04 Intake & Output 12/14/18 12/15/18 12/16/18 06:59 06:59 06:59 Intake Total 221 150 240 Output Total 1140 365 100 Balance -919 -215 140 Weight 243 lb 9.773 oz 235 lb 7.259 oz 237 lb 14.06 oz General appearance: PRESENT: no acute distress, morbidly obese Head exam: PRESENT: atraumatic, normocephalic Eye exam: PRESENT: conjunctiva pink, EOMI, PERRLA. ABSENT: scleral icterus Ear exam: PRESENT: normal external ear exam Mouth exam: PRESENT: moist, tongue midline Neck exam: ABSENT: carotid bruit, JVD, lymphadenopathy, thyromegaly Respiratory exam: PRESENT: clear to auscultation linda. ABSENT: rales, rhonchi, wheezes Cardiovascular exam: PRESENT: RRR. ABSENT: diastolic murmur, rubs, systolic murmur Pulses: PRESENT: normal dorsalis pedis pul GI/Abdominal exam: PRESENT: normal bowel sounds, soft. ABSENT: distended, guarding, mass, organolmegaly, rebound, tenderness Rectal exam: PRESENT: deferred Extremities exam: PRESENT: full ROM, +1 edema. ABSENT: calf tenderness, clubbing Neurological exam: PRESENT: alert, awake, oriented to person, oriented to place, oriented to time, oriented to situation, CN II-XII grossly intact. ABSENT: motor sensory deficit Results Laboratory Results: 12/15/18 03:42 12/15/18 03:42 12/15/18 12/15/18 03:42 03:42 WBC 8.9 RBC 4.93 Hgb 13.0 Hct 40.4 MCV 82 MCH 26.3 L MCHC 32.1 RDW 20.4 H Plt Count 529 H Seg Neutrophils % 61.9 Sodium 142.9 Potassium 3.0 L* Chloride 100 Carbon Dioxide 30 Anion Gap 13 BUN 24 H Creatinine 0.89 Est GFR ( Amer) > 60 Glucose 123 H Calcium 10.8 H Phosphorus 8.2 H Magnesium 1.8 11/25/18 11/25/18 11/25/18 01:58 07:39 07:39 Creatine Kinase 50 CK-MB (CK-2) 0.53 Troponin I < 0.012 < 0.012 NT-Pro-B Natriuret Pep 766 H 11/25/18 11/25/18 11/25/18 12:03 12:03 18:17 Creatine Kinase 37 29 L CK-MB (CK-2) 0.37 Troponin I < 0.012 NT-Pro-B Natriuret Pep 11/25/18 11/26/18 18:17 03:32 Creatine Kinase CK-MB (CK-2) < 0.22 Troponin I < 0.012 NT-Pro-B Natriuret Pep 490 H Impressions: Abdomen Ultrasound 11/25/18 01:12 IMPRESSION: No free fluid identified within the upper quadrants. Evaluation of the lower quadrants was limited due to patient positioning as per the technologist. Head CT 11/27/18 00:00 IMPRESSION: Sinus disease. No acute intracranial imaging findings. EVIDENCE OF ACUTE STROKE: NO. Abdomen/Pelvis CT 12/03/18 00:00 IMPRESSION: Bilateral lower lobe consolidation -atelectasis. No pneumothorax pleural effusion. Endotracheal tube is present with tip 1.3 cm above the level of the kirill. IMPRESSION: Small amount of pelvic free fluid. No bowel dilatation. Chest CT 12/03/18 00:00 IMPRESSION: Bilateral lower lobe consolidation -atelectasis. No pneumothorax pleural effusion. Endotracheal tube is present with tip 1.3 cm above the level of the kirill. IMPRESSION: Small amount of pelvic free fluid. No bowel dilatation. KUB X-Ray 12/03/18 12:02 IMPRESSION: NO RADIOGRAPHIC EVIDENCE FOR ACUTE ABDOMINAL DISEASE.NG tube tip overlies the pyloric region of the stomach. Chest X-Ray 12/15/18 06:00 IMPRESSION: STABLE APPEARANCE OF THE CHEST. Assessment and Plan - Diagnosis (1) Acute respiratory failure with hypoxia Is this a current diagnosis for this admission?: Yes Plan: Multifactorial from volume overload, cocaine use, alcohol withdrawal and pneumonia. S/P extubation on 12/01/18. Currently doing well on BIPAP. Will attempt to wean off BIPAP today. Pulmonolgy following. 12/13: Resolved. Weaned off BIPAP. On nasal cannula. (2) Pneumonia Is this a current diagnosis for this admission?: Yes Plan: Chest CT did show lower lobe consolidation. She had a bronchoscopy and washings grew Klebsiella. Currently getting Rocephin. 12/13: Discontinue antibiotics. (3) Acute kidney injury Is this a current diagnosis for this admission?: Yes Plan: Resolved. (4) Cocaine use Is this a current diagnosis for this admission?: Yes Plan: Counseled on cessation. (5) Edema due to hypoalbuminemia Is this a current diagnosis for this admission?: Yes Plan: Improved. (6) Morbid obesity with BMI of 40.0-44.9, adult Is this a current diagnosis for this admission?: Yes Plan: Counseled on weight loss. (7) Hypokalemia Is this a current diagnosis for this admission?: Yes Plan: Getting PO KCl. Repeat K level. - Time Time Spent with patient: 15-24 minutes
[2018-12-16] MEDS: POTASSIUM CHLORIDE 10 MEQ CAPSULE.ER PO SCH ×2 (05:25→17:28)
[2018-12-16] MEDS: HEPARIN SOD (PORCINE) 5,000 UNIT/ML 1 ML VIAL SUBCUT SCH ×3 (05:25→22:29)
[2018-12-16] MEDS: PANTOPRAZOLE SODIUM 40 MG TABLET.DR PO SCH (05:26)
[2018-12-16] MEDS: BUDESONIDE NEB 0.5 MG/2 ML AMPUL NEB SCH ×2 (08:32→20:05)
[2018-12-16] MEDS: IPRATROPIUM BROMIDE 0.02% NEB 0.5 MG/2.5 ML AMPUL NEB SCH ×2 (08:32→16:22)
[2018-12-16] MEDS: LEVALBUTEROL HCL NEB 1.25 MG/3 ML AMPUL NEB SCH ×2 (08:32→16:22)
[2018-12-16] MEDS: LACTULOSE SYRUP 20 GM/30 ML UDCUP PO SCH ×2 (10:31→17:27)
[2018-12-16] MEDS: THIAMINE HCL 100 MG TABLET PO SCH (10:32)
[2018-12-16] MEDS: FUROSEMIDE 20 MG TABLET PO SCH (10:32)
[2018-12-16] MEDS: MULTIVITAMIN TABLET PO SCH (10:32)
[2018-12-16] MEDS: PANTOT AC/MIN OIL/PET HY-PHL OINT 50 GM TOP SCH ×2 (10:32→22:44)
[2018-12-16] MEDS: NICOTINE 21 MG/24 HR PATCH.TD24 TD SCH (10:33)
[2018-12-16 11:06] LABS: ANION GAP 15 (5-19); BLOOD UREA NITROGEN 23 mg/dL (7-20); CARBON DIOXIDE 24 mmol/L (22-30); CHLORIDE 100 mmol/L (98-107); GLUCOSE 115 mg/dL (75-110)
[2018-12-16 11:10] LABS: POTASSIUM 4.3 mmol/L (3.6-5.0)
--- NOTE | 2018-12-16 16:39 | PDOC PROGRESS REPORT ---
Subjective Progress Note for:: 12/16/18 Subjective:: This is a 38-year-old female who presented with increasing shortness of breath, abdominal distention and increased bipedal edema. Patient was noted to be fluid overloaded upon presentation and was noted to have anasarca. She went into acute respiratory failure and required intubation. She was also found to have acute renal failure and positive cocaine in her UDS. She also was treated for alcohol withdrawal during this course. Her ICU course was prolonged due to difficulty weaning. She was eventually extubated yesterday 12/01 and was transitioned to BiPAP. 12/12: No acute event overnight. Upon encounter, she is saturating and appears comfortable on BiPAP. She is oriented to person, place and time. She denies chest pain or shortness of breath. 12/13: She continues to do well. She was weaned off the BiPAP and has been saturating well and comfortable on nasal cannula. He is also more coherent today and is well oriented x3. 12/14: She was restless this morning and asked staff if she could smoke. She continues to do well off the BIPAP. Denies chest pain or SOB. She was evaluated by PT yesterday and was noted to be weak and deconditioned. 12/15: She is slowly regaining her strength. She denies acute complaints. We will have PT reevaluate her today. 12/16: No acute event overnight. She ambulated well using a walker without any issue. She saturating well on room air at rest however she did desaturate on ambulation to 87%. Reason For Visit: ACUTE RESPIRATORY FAILURE WITH HYPOXIA Physical Exam Vital Signs: Temp Pulse Resp BP Pulse Ox 97.8 F 102 H 18 121/83 98 12/16/18 11:29 12/16/18 14:00 12/16/18 11:29 12/16/18 11:29 12/16/18 11:29 Intake & Output 12/15/18 12/16/18 12/17/18 06:59 06:59 06:59 Intake Total 150 600 180 Output Total 365 1200 150 Balance -215 -600 30 Weight 235 lb 7.259 oz 238 lb 15.697 oz General appearance: PRESENT: no acute distress, morbidly obese Head exam: PRESENT: atraumatic, normocephalic Eye exam: PRESENT: conjunctiva pink, EOMI, PERRLA. ABSENT: scleral icterus Ear exam: PRESENT: normal external ear exam Mouth exam: PRESENT: moist, tongue midline Neck exam: ABSENT: carotid bruit, JVD, lymphadenopathy, thyromegaly Respiratory exam: PRESENT: clear to auscultation linda. ABSENT: rales, rhonchi, wheezes Cardiovascular exam: PRESENT: RRR. ABSENT: diastolic murmur, rubs, systolic murmur Pulses: PRESENT: normal dorsalis pedis pul GI/Abdominal exam: PRESENT: normal bowel sounds, soft. ABSENT: distended, guarding, mass, organolmegaly, rebound, tenderness Rectal exam: PRESENT: deferred Neurological exam: PRESENT: alert, awake, oriented to person, oriented to place, CN II-XII grossly intact. ABSENT: motor sensory deficit Results Laboratory Results: 12/15/18 03:42 12/16/18 10:25 12/15/18 12/16/18 17:09 10:25 Sodium 138.7 Potassium 3.3 L 4.3 D Chloride 100 Carbon Dioxide 24 Anion Gap 15 BUN 23 H Creatinine 0.86 Est GFR ( Amer) > 60 Glucose 115 H Calcium 11.0 H 11/25/18 11/25/18 11/25/18 01:58 07:39 07:39 Creatine Kinase 50 CK-MB (CK-2) 0.53 Troponin I < 0.012 < 0.012 NT-Pro-B Natriuret Pep 766 H 11/25/18 11/25/18 11/25/18 12:03 12:03 18:17 Creatine Kinase 37 29 L CK-MB (CK-2) 0.37 Troponin I < 0.012 NT-Pro-B Natriuret Pep 11/25/18 11/26/18 18:17 03:32 Creatine Kinase CK-MB (CK-2) < 0.22 Troponin I < 0.012 NT-Pro-B Natriuret Pep 490 H Impressions: Abdomen Ultrasound 11/25/18 01:12 IMPRESSION: No free fluid identified within the upper quadrants. Evaluation of the lower quadrants was limited due to patient positioning as per the technologist. Head CT 11/27/18 00:00 IMPRESSION: Sinus disease. No acute intracranial imaging findings. EVIDENCE OF ACUTE STROKE: NO. Abdomen/Pelvis CT 12/03/18 00:00 IMPRESSION: Bilateral lower lobe consolidation -atelectasis. No pneumothorax pleural effusion. Endotracheal tube is present with tip 1.3 cm above the level of the kirill. IMPRESSION: Small amount of pelvic free fluid. No bowel dilatation. Chest CT 12/03/18 00:00 IMPRESSION: Bilateral lower lobe consolidation -atelectasis. No pneumothorax pleural effusion. Endotracheal tube is present with tip 1.3 cm above the level of the kirill. IMPRESSION: Small amount of pelvic free fluid. No bowel dilatation. KUB X-Ray 12/03/18 12:02 IMPRESSION: NO RADIOGRAPHIC EVIDENCE FOR ACUTE ABDOMINAL DISEASE.NG tube tip overlies the pyloric region of the stomach. Chest X-Ray 12/15/18 06:00 IMPRESSION: STABLE APPEARANCE OF THE CHEST. Assessment and Plan - Diagnosis (1) Acute respiratory failure with hypoxia Is this a current diagnosis for this admission?: Yes Plan: Multifactorial from volume overload, cocaine use, alcohol withdrawal and pneumonia. S/P extubation on 12/01/18. Currently doing well on BIPAP. Will attempt to wean off BIPAP today. Pulmonolgy following. 12/13: Resolved. Weaned off BIPAP. On nasal cannula. 12/16: Will do formal home O2 testing. (2) Pneumonia Is this a current diagnosis for this admission?: Yes Plan: Completed antibiotics. (3) Acute kidney injury Is this a current diagnosis for this admission?: Yes Plan: Resolved. (4) Cocaine use Is this a current diagnosis for this admission?: Yes Plan: Counseled on cessation. Her on is at the bedside and they have discussed moving to drug rehab in length. Patient expressed she is not interested at this time to pursue rehab. (5) Edema due to hypoalbuminemia Is this a current diagnosis for this admission?: Yes Plan: Improved. (6) Morbid obesity with BMI of 40.0-44.9, adult Is this a current diagnosis for this admission?: Yes Plan: Counseled on weight loss. (7) Hypokalemia Is this a current diagnosis for this admission?: Yes Plan: Repleted.
[2018-12-17] MEDS: PANTOPRAZOLE SODIUM 40 MG TABLET.DR PO SCH (06:01)
[2018-12-17] MEDS: HEPARIN SOD (PORCINE) 5,000 UNIT/ML 1 ML VIAL SUBCUT SCH ×3 (06:01→21:58)
[2018-12-17] MEDS: BUDESONIDE NEB 0.5 MG/2 ML AMPUL NEB SCH ×2 (08:27→20:29)
[2018-12-17] MEDS: IPRATROPIUM BROMIDE 0.02% NEB 0.5 MG/2.5 ML AMPUL NEB SCH ×3 (08:27→15:48)
[2018-12-17] MEDS: LEVALBUTEROL HCL NEB 1.25 MG/3 ML AMPUL NEB SCH ×3 (08:27→15:48)
[2018-12-17] MEDS: THIAMINE HCL 100 MG TABLET PO SCH (09:59)
[2018-12-17] MEDS: FUROSEMIDE 20 MG TABLET PO SCH (09:59)
[2018-12-17] MEDS: NICOTINE 21 MG/24 HR PATCH.TD24 TD SCH ×2 (09:59→14:52)
[2018-12-17] MEDS: LACTULOSE SYRUP 20 GM/30 ML UDCUP PO SCH ×2 (09:59→17:07)
[2018-12-17] MEDS: MULTIVITAMIN TABLET PO SCH (09:59)
[2018-12-17] MEDS: PANTOT AC/MIN OIL/PET HY-PHL OINT 50 GM TOP SCH ×2 (10:00→21:59)
--- NOTE | 2018-12-17 12:00 | PDOC PROGRESS REPORT ---
Subjective Progress Note for:: 12/17/18 Subjective:: This is a 38-year-old female who presented with increasing shortness of breath, abdominal distention and increased bipedal edema. Patient was noted to be fluid overloaded upon presentation and was noted to have anasarca. She went into acute respiratory failure and required intubation. She was also found to have acute renal failure and positive cocaine in her UDS. She also was treated for alcohol withdrawal during this course. Her ICU course was prolonged due to difficulty weaning. She was eventually extubated yesterday 12/01 and was transitioned to BiPAP. 12/12: No acute event overnight. Upon encounter, she is saturating and appears comfortable on BiPAP. She is oriented to person, place and time. She denies chest pain or shortness of breath. 12/13: She continues to do well. She was weaned off the BiPAP and has been saturating well and comfortable on nasal cannula. He is also more coherent today and is well oriented x3. 12/14: She was restless this morning and asked staff if she could smoke. She continues to do well off the BIPAP. Denies chest pain or SOB. She was evaluated by PT yesterday and was noted to be weak and deconditioned. 12/15: She is slowly regaining her strength. She denies acute complaints. We will have PT reevaluate her today. 12/16: She ambulated well using a walker without any issue. She saturating well on room air at rest however she did desaturate on ambulation to 87%. 12/17: No acute event overnight. She continues to gradually regain her strength and has been ambulating with a walker. She does need home O2. Denies acute complaints. Awaiting for acquisition of home oxygen. Reason For Visit: ACUTE RESPIRATORY FAILURE WITH HYPOXIA Physical Exam Vital Signs: Temp Pulse Resp BP Pulse Ox 98.4 F 86 18 113/66 94 12/17/18 03:16 12/17/18 08:30 12/17/18 08:30 12/17/18 03:16 12/17/18 08:30 Intake & Output 12/16/18 12/17/18 12/18/18 06:59 06:59 06:59 Intake Total 600 1060 Output Total 1200 700 Balance -600 360 Weight 238 lb 15.697 oz 239 lb 13.807 oz General appearance: PRESENT: morbidly obese Head exam: PRESENT: atraumatic, normocephalic Eye exam: PRESENT: conjunctiva pink, EOMI, PERRLA. ABSENT: scleral icterus Ear exam: PRESENT: normal external ear exam Mouth exam: PRESENT: moist, tongue midline Neck exam: ABSENT: carotid bruit, JVD, lymphadenopathy, thyromegaly Respiratory exam: PRESENT: clear to auscultation linda. ABSENT: rales, rhonchi, wheezes Cardiovascular exam: PRESENT: RRR. ABSENT: diastolic murmur, rubs, systolic murmur Pulses: PRESENT: normal dorsalis pedis pul GI/Abdominal exam: PRESENT: normal bowel sounds, soft. ABSENT: distended, guarding, mass, organolmegaly, rebound, tenderness Rectal exam: PRESENT: deferred Extremities exam: PRESENT: full ROM. ABSENT: calf tenderness, clubbing, pedal edema Neurological exam: PRESENT: alert, awake, oriented to person, oriented to place, oriented to time, oriented to situation, CN II-XII grossly intact. ABSENT: motor sensory deficit Results Laboratory Results: 12/15/18 03:42 12/16/18 10:25 11/25/18 11/25/18 11/25/18 01:58 07:39 07:39 Creatine Kinase 50 CK-MB (CK-2) 0.53 Troponin I < 0.012 < 0.012 NT-Pro-B Natriuret Pep 766 H 11/25/18 11/25/18 11/25/18 12:03 12:03 18:17 Creatine Kinase 37 29 L CK-MB (CK-2) 0.37 Troponin I < 0.012 NT-Pro-B Natriuret Pep 11/25/18 11/26/18 18:17 03:32 Creatine Kinase CK-MB (CK-2) < 0.22 Troponin I < 0.012 NT-Pro-B Natriuret Pep 490 H Impressions: Abdomen Ultrasound 11/25/18 01:12 IMPRESSION: No free fluid identified within the upper quadrants. Evaluation of the lower quadrants was limited due to patient positioning as per the technologist. Head CT 11/27/18 00:00 IMPRESSION: Sinus disease. No acute intracranial imaging findings. EVIDENCE OF ACUTE STROKE: NO. Abdomen/Pelvis CT 12/03/18 00:00 IMPRESSION: Bilateral lower lobe consolidation -atelectasis. No pneumothorax pleural effusion. Endotracheal tube is present with tip 1.3 cm above the level of the kirill. IMPRESSION: Small amount of pelvic free fluid. No bowel dilatation. Chest CT 12/03/18 00:00 IMPRESSION: Bilateral lower lobe consolidation -atelectasis. No pneumothorax pleural effusion. Endotracheal tube is present with tip 1.3 cm above the level of the kirill. IMPRESSION: Small amount of pelvic free fluid. No bowel dilatation. KUB X-Ray 12/03/18 12:02 IMPRESSION: NO RADIOGRAPHIC EVIDENCE FOR ACUTE ABDOMINAL DISEASE.NG tube tip overlies the pyloric region of the stomach. Chest X-Ray 12/15/18 06:00 IMPRESSION: STABLE APPEARANCE OF THE CHEST. Assessment and Plan - Diagnosis (1) Acute respiratory failure with hypoxia Is this a current diagnosis for this admission?: Yes Plan: Multifactorial from volume overload, cocaine use, alcohol withdrawal and pneumonia. S/P extubation on 12/01/18. Currently doing well on BIPAP. Will attempt to wean off BIPAP today. Pulmonolgy following. 12/13: Resolved. Weaned off BIPAP. On nasal cannula. 12/17: She qualified for home O2. She is saturating well on room air at rest but went down to 87% on ambulation. (2) Pneumonia Is this a current diagnosis for this admission?: Yes Plan: Completed antibiotics. (3) Acute kidney injury Is this a current diagnosis for this admission?: Yes Plan: Resolved. (4) Cocaine use Is this a current diagnosis for this admission?: Yes Plan: Counseled on cessation. Her aunt on is at the bedside and they have discussed going to drug rehab in length. Patient expressed she is not interested at this time to pursue rehab. (5) Edema due to hypoalbuminemia Is this a current diagnosis for this admission?: Yes Plan: Improved. (6) Morbid obesity with BMI of 40.0-44.9, adult Is this a current diagnosis for this admission?: Yes Plan: Counseled on weight loss. (7) Hypokalemia Is this a current diagnosis for this admission?: Yes Plan: Repleted. - Time Time Spent with patient: 15-24 minutes
[2018-12-17] MEDS: ACETAMINOPHEN 325 MG TABLET PO PRN ×2 (14:16→18:54)
[2018-12-18] MEDS: LEVALBUTEROL HCL NEB 1.25 MG/3 ML AMPUL NEB SCH ×3 (00:22→16:08)
[2018-12-18] MEDS: IPRATROPIUM BROMIDE 0.02% NEB 0.5 MG/2.5 ML AMPUL NEB SCH ×3 (00:22→16:08)
[2018-12-18] MEDS: HEPARIN SOD (PORCINE) 5,000 UNIT/ML 1 ML VIAL SUBCUT SCH ×3 (05:14→21:33)
[2018-12-18] MEDS: PANTOPRAZOLE SODIUM 40 MG TABLET.DR PO SCH (05:14)
[2018-12-18] MEDS: BUDESONIDE NEB 0.5 MG/2 ML AMPUL NEB SCH ×2 (08:13→20:23)
[2018-12-18] MEDS: THIAMINE HCL 100 MG TABLET PO SCH (09:49)
[2018-12-18] MEDS: FUROSEMIDE 20 MG TABLET PO SCH (09:49)
[2018-12-18] MEDS: MULTIVITAMIN TABLET PO SCH (09:50)
[2018-12-18] MEDS: LACTULOSE SYRUP 20 GM/30 ML UDCUP PO SCH ×2 (09:50→17:09)
[2018-12-18] MEDS: NICOTINE 21 MG/24 HR PATCH.TD24 TD SCH (09:50)
[2018-12-18] MEDS: PANTOT AC/MIN OIL/PET HY-PHL OINT 50 GM TOP SCH ×2 (14:30→21:34)
--- NOTE | 2018-12-18 15:46 | PDOC PROGRESS REPORT ---
Subjective Progress Note for:: 12/18/18 Subjective:: This is a 38-year-old female who presented with increasing shortness of breath, abdominal distention and increased bipedal edema. Patient was noted to be fluid overloaded upon presentation and was noted to have anasarca. She went into acute respiratory failure and required intubation. She was also found to have acute renal failure and positive cocaine in her UDS. She also was treated for alcohol withdrawal during this course. Her ICU course was prolonged due to difficulty weaning. She was eventually extubated yesterday 12/01 and was transitioned to BiPAP. 12/12: No acute event overnight. Upon encounter, she is saturating and appears comfortable on BiPAP. She is oriented to person, place and time. She denies chest pain or shortness of breath. 12/13: She continues to do well. She was weaned off the BiPAP and has been saturating well and comfortable on nasal cannula. He is also more coherent today and is well oriented x3. 12/14: She was restless this morning and asked staff if she could smoke. She continues to do well off the BIPAP. Denies chest pain or SOB. She was evaluated by PT yesterday and was noted to be weak and deconditioned. 12/15: She is slowly regaining her strength. She denies acute complaints. We will have PT reevaluate her today. 12/16: She ambulated well using a walker without any issue. She saturating well on room air at rest however she did desaturate on ambulation to 87%. 12/18: No acute event overnight. No acute issues. She does need home O2. Denies acute complaints. Awaiting for acquisition/approval of home oxygen. Reason For Visit: ACUTE RESPIRATORY FAILURE WITH HYPOXIA Physical Exam Vital Signs: Temp Pulse Resp BP Pulse Ox 98.1 F 97 17 120/88 H 94 12/18/18 07:55 12/18/18 08:13 12/18/18 08:13 12/18/18 07:55 12/18/18 08:13 Intake & Output 12/17/18 12/18/18 12/19/18 06:59 06:59 06:59 Intake Total 1060 720 Output Total 700 Balance 360 720 Weight 239 lb 13.807 oz 234 lb 9.149 oz General appearance: PRESENT: obese Head exam: PRESENT: atraumatic, normocephalic Eye exam: PRESENT: conjunctiva pink, EOMI, PERRLA. ABSENT: scleral icterus Ear exam: PRESENT: normal external ear exam Mouth exam: PRESENT: moist, tongue midline Neck exam: ABSENT: carotid bruit, JVD, lymphadenopathy, thyromegaly Respiratory exam: PRESENT: clear to auscultation linda. ABSENT: rales, rhonchi, wheezes Cardiovascular exam: PRESENT: RRR. ABSENT: diastolic murmur, rubs, systolic murmur Pulses: PRESENT: normal dorsalis pedis pul GI/Abdominal exam: PRESENT: normal bowel sounds, soft. ABSENT: distended, guarding, mass, organolmegaly, rebound, tenderness Rectal exam: PRESENT: deferred Neurological exam: PRESENT: alert, awake, oriented to person, oriented to place, oriented to time, oriented to situation, CN II-XII grossly intact. ABSENT: motor sensory deficit Results Laboratory Results: 12/15/18 03:42 12/16/18 10:25 11/25/18 11/25/18 11/25/18 01:58 07:39 07:39 Creatine Kinase 50 CK-MB (CK-2) 0.53 Troponin I < 0.012 < 0.012 NT-Pro-B Natriuret Pep 766 H 11/25/18 11/25/18 11/25/18 12:03 12:03 18:17 Creatine Kinase 37 29 L CK-MB (CK-2) 0.37 Troponin I < 0.012 NT-Pro-B Natriuret Pep 11/25/18 11/26/18 18:17 03:32 Creatine Kinase CK-MB (CK-2) < 0.22 Troponin I < 0.012 NT-Pro-B Natriuret Pep 490 H Impressions: Abdomen Ultrasound 11/25/18 01:12 IMPRESSION: No free fluid identified within the upper quadrants. Evaluation of the lower quadrants was limited due to patient positioning as per the technologist. Head CT 11/27/18 00:00 IMPRESSION: Sinus disease. No acute intracranial imaging findings. EVIDENCE OF ACUTE STROKE: NO. Abdomen/Pelvis CT 12/03/18 00:00 IMPRESSION: Bilateral lower lobe consolidation -atelectasis. No pneumothorax pleural effusion. Endotracheal tube is present with tip 1.3 cm above the level of the kirill. IMPRESSION: Small amount of pelvic free fluid. No bowel dilatation. Chest CT 12/03/18 00:00 IMPRESSION: Bilateral lower lobe consolidation -atelectasis. No pneumothorax pleural effusion. Endotracheal tube is present with tip 1.3 cm above the level of the kirill. IMPRESSION: Small amount of pelvic free fluid. No bowel dilatation. KUB X-Ray 12/03/18 12:02 IMPRESSION: NO RADIOGRAPHIC EVIDENCE FOR ACUTE ABDOMINAL DISEASE.NG tube tip overlies the pyloric region of the stomach. Chest X-Ray 12/15/18 06:00 IMPRESSION: STABLE APPEARANCE OF THE CHEST. Assessment and Plan - Diagnosis (1) Acute respiratory failure with hypoxia Is this a current diagnosis for this admission?: Yes Plan: Multifactorial from volume overload, cocaine use, alcohol withdrawal and pneumonia. S/P extubation on 12/01/18. Currently doing well on BIPAP. Will attempt to wean off BIPAP today. Pulmonolgy following. 12/13: Resolved. Weaned off BIPAP. On nasal cannula. 12/16: Will do formal home O2 testing. 12/18: Awaiting home O2 device. (2) Pneumonia Is this a current diagnosis for this admission?: Yes Plan: Completed antibiotics. (3) Acute kidney injury Is this a current diagnosis for this admission?: Yes Plan: Resolved. (4) Cocaine use Is this a current diagnosis for this admission?: Yes Plan: Counseled on cessation. Her aunt was on bedside and they have discussed moving to drug rehab in length. Patient expressed she is not interested at this time to pursue rehab. (5) Edema due to hypoalbuminemia Is this a current diagnosis for this admission?: Yes Plan: Improved. (6) Morbid obesity with BMI of 40.0-44.9, adult Is this a current diagnosis for this admission?: Yes Plan: Counseled on weight loss. (7) Hypokalemia Is this a current diagnosis for this admission?: Yes Plan: Repleted. - Time Time Spent with patient: 15-24 minutes
[2018-12-18] MEDS: ACETAMINOPHEN 325 MG TABLET PO PRN ×2 (15:49→22:53)
[2018-12-19] MEDS: LEVALBUTEROL HCL NEB 1.25 MG/3 ML AMPUL NEB SCH ×2 (00:12→08:33)
[2018-12-19] MEDS: IPRATROPIUM BROMIDE 0.02% NEB 0.5 MG/2.5 ML AMPUL NEB SCH ×2 (00:12→08:33)
[2018-12-19] MEDS: PANTOPRAZOLE SODIUM 40 MG TABLET.DR PO SCH (05:06)
[2018-12-19] MEDS: HEPARIN SOD (PORCINE) 5,000 UNIT/ML 1 ML VIAL SUBCUT SCH (05:06)
[2018-12-19 06:12] LABS: ABSOLUTE BASOPHILS # (AUTO) 0.1 10^3/uL (0.0-0.2); ABSOLUTE EOSINOPHILS # (AUTO) 0.3 10^3/uL (0.0-0.6); ABSOLUTE LYMPHOCYTES (AUTO) 2.1 10^3/uL (0.5-4.7); ABSOLUTE MONOCYTES (AUTO) 0.5 10^3/uL (0.1-1.4); ABSOLUTE NEUT (AUTO) 3.6 10^3/uL (1.7-8.2); BASOPHILS % (AUTO) 1.1 % (0-2); EOSINOPHILS % (AUTO) 4.7 % (0-6); HEMATOCRIT 40.8 % (36.0-47.0); HEMOGLOBIN 13.2 g/dL (12.0-15.5); LYMPHOCYTES % (AUTO) 31.6 % (13-45); MEAN CORPUSCULAR HEMOGLOBIN 26.7 pg (27.0-33.4); MEAN CORPUSCULAR HGB CONC 32.4 g/dL (32.0-36.0); MEAN CORPUSCULAR VOLUME 82 fl (80-97); MONOCYTES % (AUTO) 8.3 % (3-13); PLATELET COUNT 357 10^3/uL (150-450); RED BLOOD COUNT 4.95 10^6/uL (3.72-5.28); RED CELL DISTRIBUTION WIDTH 20.8 % (11.5-14.0); SEGMENTED NEUTROPHILS % (AUTO) 54.3 % (42-78); TOTAL CELLS COUNTED % (AUTO) 100 %; WHITE BLOOD COUNT 6.6 10^3/uL (4.0-10.5)
[2018-12-19 06:27] LABS: ANION GAP 14 (5-19); BLOOD UREA NITROGEN 15 mg/dL (7-20); CALCIUM 10.7 mg/dL (8.4-10.2); CARBON DIOXIDE 25 mmol/L (22-30); CHLORIDE 99 mmol/L (98-107); GLUCOSE 147 mg/dL (75-110); POTASSIUM 3.4 mmol/L (3.6-5.0)
[2018-12-19] MEDS: BUDESONIDE NEB 0.5 MG/2 ML AMPUL NEB SCH (08:33)
[2018-12-19] MEDS: FUROSEMIDE 20 MG TABLET PO SCH (09:29)
[2018-12-19] MEDS: NICOTINE 21 MG/24 HR PATCH.TD24 TD SCH (09:29)
[2018-12-19] MEDS: THIAMINE HCL 100 MG TABLET PO SCH (09:29)
[2018-12-19] MEDS: MULTIVITAMIN TABLET PO SCH (09:29)
[2018-12-19] MEDS: LACTULOSE SYRUP 20 GM/30 ML UDCUP PO SCH (09:33)
--- NOTE | 2018-12-19 09:52 | PDOC PROGRESS REPORT ---
Subjective Subjective:: 11/26/2018 38 year old female who presented to the emergency room via EMS with dyspnea, abdominal distention and bilateral lower extremity pain and swelling with redness. Patient states that her symptoms have progressively worsened since she was discharged in June when she was seen for the same problems. The patient indicated that her lower extremities have been very swollen and she had noticed some redness on some of the areas of her lower extremities earlier in the day. She indicates that her abdominal swelling has also worsened progressively and has become extremely tight. She continues to drink alcohol every day and her last drink was on the night of 11/24/2018. She is not currently using any recreational drugs. She smokes 1 pack of cigarettes per day and continues to smoke despite her dyspnea. Patient became progressively more dyspneic shortly after her arrival in the emergency room while she was being given IV fluids and evaluated. Her respiratory status degraded to the point where she required intubation and ventilation via mechanical ventilator. She is going to be admitted to the ICU for further evaluation and treatment. 11/25/[id number]-xree-old female with multiple medical problems including congestive heart failure, chronic alcohol abuse, recreational drug use and urine drug screen is positive for cocaine, tobacco abuser came to the emergency room with increasing shortness of breath and questionable bilateral lower extremity cellulitis and lactic acid was 4.2 she went into respiratory failure in the emergency room status post intubation. Patient is properly sedated. Consultation with Dr. Chang was requested for central line consultation with Dr. Ayers was requested for management of the vent. She is going to continue to receive antibiotics and blood cultures are pending. Started on IV Protonix 40 mg twice a day, banana bag. Soft restraints order was placed. Condition is critical. Patient is going to receive a Lasix drip and to follow strict input output chart. 11/26/[id number]-hqep-old female admitted with acute on chronic respiratory failure status post intubation. Chest x-ray this morning indicates is possible right lower lobe pneumonia. Started on IV Zosyn and vancomycin blood cultures are negative so far. Patient is on mechanical ventilation on SIMV with 50% oxygen PEEP of 5 tidal volume of 500 respiratory rate of 16. She is on to prevent on Versed for sedation. CT scan of the chest at the time of admission shows lymph nodes under the right breast. Recommendation from the radiologist is to arrange for mammogram as an outpatient. Patient's potassium and magnesium are low today electrolyte protocol was implemented. Albumin is 2.7 to give IV albumin. Condition is critical prognosis is poor. I spoke to the daughter who is 16-year-old and she told me she does not have any family members in town. once adult family members are available to talk all explained to them the patient's condition. 11/27/[id number]-ooch-old female with a history of morbid obesity, congestive heart failure, cocaine use, chronic alcohol user, heavy smoker admitted with respiratory distress and hypoxia. He she was intubated. She still on intubation and on diprivan and Versed. ABG this morning on 60% oxygen pH is 7.47/PCO2 54/PCO2 60 oxygen saturation is 92%. No acute events in the last 24 hours. Fluid balance of +100 cc. Afebrile. Her WBC count is normal. Cultures are negative so far. To discontinue IV vancomycin from today. Still overall prognosis poor condition is critical. 11/28/[id number]-tyih-old female with history of alcohol abuse, cocaine use, history of congestive heart failure morbid obesity heavy smoker admitted with respiratory distress and hypoxia she was intubated and presently on Versed and diprivan. Presently on 90% oxygen with a tidal volume of 550 respiratory rate of 20 pulse ox of 90%. ABG this morning pH is 7.6 PCO2 36 PO2 62 oxygen saturation is 95%. Cultures are negative. We will adjust ventilator settings as per Dr. Ayers's recommendations. Acute events in the last 24 hours chest x-ray looks better today. 12/19/[id number]-ywte-old female with history of alcohol abuse, cocaine use, history of congestive heart failure, morbid obesity, heavy smoker admitted with respiratory distress with hypoxia she was intubated and successfully extubated. No acute events in the last 24 hours. Pulse ox 95% on room air. Serum calcium is 10.7 is persistently elevated for the last for 5 days. Nephrology input was requested and requested to for PTH and PTH related peptide. Reason For Visit: ACUTE RESPIRATORY FAILURE WITH HYPOXIA Physical Exam Vital Signs: Temp Pulse Resp BP Pulse Ox 97.5 F 93 16 110/60 85 L 12/19/18 03:10 12/19/18 08:33 12/19/18 08:33 12/19/18 03:10 12/19/18 08:33 Intake & Output 12/18/18 12/19/18 12/20/18 06:59 06:59 06:59 Intake Total 720 240 Balance 720 240 Weight 106.4 kg 107.7 kg General appearance: PRESENT: no acute distress, morbidly obese Head exam: PRESENT: atraumatic Eye exam: PRESENT: PERRLA Mouth exam: PRESENT: moist, tongue midline Teeth exam: PRESENT: poor dentation Neck exam: ABSENT: carotid bruit, JVD, lymphadenopathy, thyromegaly Respiratory exam: PRESENT: decreased breath sounds Cardiovascular exam: PRESENT: RRR. ABSENT: diastolic murmur, rubs, systolic murmur GI/Abdominal exam: PRESENT: normal bowel sounds, soft. ABSENT: distended, guarding, mass, organolmegaly, rebound, tenderness Rectal exam: PRESENT: deferred Neurological exam: PRESENT: alert, awake, oriented to person, oriented to place, oriented to time, oriented to situation, CN II-XII grossly intact. ABSENT: motor sensory deficit Psychiatric exam: PRESENT: appropriate affect, normal mood. ABSENT: homicidal ideation, suicidal ideation Results Laboratory Results: 12/19/18 05:48 12/19/18 05:48 12/19/18 12/19/18 05:48 05:48 WBC 6.6 RBC 4.95 Hgb 13.2 Hct 40.8 MCV 82 MCH 26.7 L MCHC 32.4 RDW 20.8 H Plt Count 357 Seg Neutrophils % 54.3 Sodium 138.1 Potassium 3.4 L Chloride 99 Carbon Dioxide 25 Anion Gap 14 BUN 15 Creatinine 0.96 Est GFR ( Amer) > 60 Glucose 147 H Calcium 10.7 H 11/25/18 11/25/18 11/25/18 01:58 07:39 07:39 Creatine Kinase 50 CK-MB (CK-2) 0.53 Troponin I < 0.012 < 0.012 NT-Pro-B Natriuret Pep 766 H 11/25/18 11/25/18 11/25/18 12:03 12:03 18:17 Creatine Kinase 37 29 L CK-MB (CK-2) 0.37 Troponin I < 0.012 NT-Pro-B Natriuret Pep 11/25/18 11/26/18 18:17 03:32 Creatine Kinase CK-MB (CK-2) < 0.22 Troponin I < 0.012 NT-Pro-B Natriuret Pep 490 H Impressions: Abdomen Ultrasound 11/25/18 01:12 IMPRESSION: No free fluid identified within the upper quadrants. Evaluation of the lower quadrants was limited due to patient positioning as per the technologist. Head CT 11/27/18 00:00 IMPRESSION: Sinus disease. No acute intracranial imaging findings. EVIDENCE OF ACUTE STROKE: NO. Abdomen/Pelvis CT 12/03/18 00:00 IMPRESSION: Bilateral lower lobe consolidation -atelectasis. No pneumothorax pleural effusion. Endotracheal tube is present with tip 1.3 cm above the level of the kirill. IMPRESSION: Small amount of pelvic free fluid. No bowel dilatation. Chest CT 12/03/18 00:00 IMPRESSION: Bilateral lower lobe consolidation -atelectasis. No pneumothorax pleural effusion. Endotracheal tube is present with tip 1.3 cm above the level of the kirill. IMPRESSION: Small amount of pelvic free fluid. No bowel dilatation. KUB X-Ray 12/03/18 12:02 IMPRESSION: NO RADIOGRAPHIC EVIDENCE FOR ACUTE ABDOMINAL DISEASE.NG tube tip overlies the pyloric region of the stomach. Chest X-Ray 12/15/18 06:00 IMPRESSION: STABLE APPEARANCE OF THE CHEST. Assessment and Plan - Diagnosis (1) Acute respiratory failure with hypoxia Is this a current diagnosis for this admission?: Yes Plan: Multifactorial from volume overload, cocaine use, alcohol withdrawal and pneumonia. S/P extubation on 12/01/18. Currently doing well on BIPAP. Will attempt to wean off BIPAP today. Pulmonolgy following. 12/13: Resolved. Weaned off BIPAP. On nasal cannula. 12/16: Will do formal home O2 testing. 12/18: Awaiting home O2 device. 12/19/[id number]-owxk-old female admitted with acute on chronic respiratory failure status post intubation and extubation. After extubation she was initially on BiPAP now she is on oxygen via nasal cannula. Waiting for arrangements for home oxygen. (2) Alcohol dependence Qualifiers: Substance use status: unspecified alcohol-induced disorder Qualified Code(s): F10.29 - Alcohol dependence with unspecified alcohol-induced disorder Is this a current diagnosis for this admission?: Yes Plan: Patient has a history of seizures when she is withdrawing from alcohol. She will be treated with Valium 10 mg IV q. one hour as needed tremors were seizure- like activity. She will additionally have chlorpromazine 25 mg IV every 8 hours as needed for agitation or hallucinations. 11/25/2018-patient has a history of seizures during the alcohol withdrawal process. Patient is presently on Valium 10 mg IV q. hours and also under Thorazine 25 mg IV every 8 hours. Plan is to continue the present management and start her on a banana bag. Place her on Ativan 1 mg IV every 4 as needed as a precaution for seizures. 11/27/2018-patient has history of seizures secondary to alcohol withdrawal. Patient is on Ativan as needed. Receiving banana bag daily. 12/19/2018-history of heavy alcohol use. No DTs noticed during this hospital stay. Patient was counseled about cutting down alcohol intake. (3) Alcoholism Is this a current diagnosis for this admission?: Yes Plan: 12/05/2018-the patient should be passed any window for withdrawal. Will need to encourage alcohol cessation with outpatient treatment if she survives this episode. 12/06/2018-past the window of withdrawal. Would benefit from cessation and a support group post recovery 12/07/2018-certainly a contributing factor to her poor health. Encourage patient support group if the patient survives. 12/08/2018-as above. No change in plan. 12/09/2018-most likely contributed to her poor health. Encourage support group if patient survives this event. 12/10/2018-await patient to be moved from [facility] make plans and encourage sobriety 12/11/2018-no signs of withdrawal. Encourage sobriety (4) Morbid obesity with BMI of 40.0-44.9, adult Is this a current diagnosis for this admission?: Yes Plan: Counseled on weight loss. (5) Cocaine use Is this a current diagnosis for this admission?: Yes Plan: Counseled on cessation. Her aunt was on bedside and they have discussed moving to drug rehab in length. Patient expressed she is not interested at this time to pursue rehab. (6) Anasarca Is this a current diagnosis for this admission?: No Plan: 12/05/2018-continued improvement with a net negative fluid loss of over 10 L and commensurate weight loss. The patient is currently on infusion of furosemide. Nephrology reports that they will be changing to scheduled dosing and discontinuing the infusion in the next 24 to 48 hours. 12/06/2018-significant improvement from admission. Dr. Johnson has stopped the furosemide infusion and the patient is now on 40 mg IV every 12 hours. We will continue to monitor electrolytes, blood pressure and renal function. We will try and avoid a net positive fluid balance. 12/07/2018-resolved. The patient is currently on 40 mg of furosemide twice daily. We will monitor her intake and output and consider 20 mg twice daily and try to maintain normovolemia 12/08/2018-no change in treatment plan today 12/09/2018-improved. Patient remains on 40 mg IV Lasix twice daily. Will follow urine output and weight. 12/10/2018-improved continue Lasix 12/11/2018-improved continue Lasix. Creatinine normal at this time. (7) Tobacco dependence Is this a current diagnosis for this admission?: Yes Plan: Patient will have a nicotine patch available for her use. (8) CHF (congestive heart failure) Qualifiers: Heart failure type: diastolic Is this a current diagnosis for this admission?: Yes Plan: 12/05/2018-the patient had an echocardiogram earlier this year. Her ejection fraction was 65 and she exhibited 1/4 diastolic dysfunction. We will continue management as outlined above. 12/06/2018-we will continue to monitor. With changes in medication will consider adding an LEONARDA inhibitor, angiotensin receptor tess and or Aldactone. Curr ently congestive heart failure is present but stable. We will begin to modify therapy as the patient recovers. 12/07/2018-does not appear that heart failure is a clinical concern at this time. Infection and dependent atelectasis as well as her morbid obesity appear to be the primary drivers for inability to extubate the patient. 12/08/2018-continue the same regimen at this time. 12/09/2018-improved stable. Patient continues on Lasix 40 mg IV twice daily. Patient continues to be ventilated with ET tube. Most likely dependent atelectasis, infection and immobility along with her morbid obesity are primary cause for inability to extubate. Most likely will receive trach and PEG. 12/10/2018-patient continues on Lasix 40 mg IV twice daily. Patient continues on ventilator. Continue to follow 12/11/2018-patient extubated at this time. Lasix 40 mill grams IV twice daily. Lungs are diminished throughout but I hear no rales at this time. Continue to follow 12/19/2018-echocardiogram done June this year shows EF of 65% associated with mild to moderate diastolic dysfunction. She is not in fluid overload today. Presently on Lasix 20 mg p.o. twice daily. Plan is to continue the present m anagement. On examination chest bilateral entry was good no wheezing no crepitations. (9) Anemia Qualifiers: Anemia type: iron deficiency Iron deficiency anemia type: inadequate dietary iron intake Qualified Code(s): D50.8 - Other iron deficiency anemias Is this a current diagnosis for this admission?: Yes Plan: 12/05/2018-hemoglobin today was 12.0. We will continue to monitor. No evidence of blood loss. 12/06/2018-hemoglobin remains stable. Monitor for blood loss. 12/07/2018-it appears that her critical illness anemia is recovering. 12/08/2018-currently with normal stable hemoglobin. Continue to monitor. 12/09/2018-resolved. Continue to follow daily CBCs 12/10/2018-resolved. Continue to follow daily CBCs 12/11/2018-resolved. Continue daily CBCs 12/19/2018-patient hemoglobin today is 13.2 stable. (10) Pneumonia Qualifiers: Pneumonia type: due to unspecified organism Laterality: bilateral Lung location: lower lobe of lung Qualified Code(s): J18.1 - Lobar pneumonia, unspecified organism Is this a current diagnosis for this admission?: Yes Plan: 12/05/2018-bilateral airspace disease. The patient completed therapy with Zosyn. White count has normalized. Still trying to wean from ventilator. Bronchoscopy performed today. Bronchial washings sent for culture to assess for any remaining infection. 12/06/2018-the patient did complete a course of Zosyn. Her white count remains normal however the bronchoscopy washings are growing gram-negative bacilli. I will await more information tomorrow and discuss with pulmonology. This may require antibiotic therapy and certainly could be causing slow weaning. 12/07/2018-the patient did undergo initial treatment with Zosyn for pneumonia. Bronchoscopy 48 hours ago supplied washings for culture. Klebsiella was isolated. It is sensitive to Rocephin and so the patient is on ceftriaxone. 12/08/2018-complete ceftriaxone as ordered 12/09/2018-bronchoscopy washings showed Klebsiella patient is on Rocephin. 12/10/2018-bronchial washing show Klebsiella continue on Rocephin 12/11/2018-bronchial washing with Klebsiella. Rocephin 1 g IV daily 12/19/2018-patient admitted with a bilateral airspace disease at the time of admission initially she was on Zosyn status post bronchoscopy was done it shows gram-negative bacilli and finally cultures came back positive for Klebsiella. She was treated with IV Rocephin. Afebrile. Pulse ox is improved. Pneumonia most likely resolved. Most likely patient has community-acquired pneumonia. (11) Hypomagnesemia Is this a current diagnosis for this admission?: Yes Plan: 11/26/2018-serum magnesium is 1.0 today patient is on electrolytee protocol was going to supplement magnesium. 11/27/2018-magnesium level is 1.5 patient is receiving banana bag. 11/28/2018-serum magnesium level is 1.8 today hypomagnesemia is resolved. 12/19/2018-serum magnesium level today is 1.8 hypomagnesemia is resolved. (12) Hypokalemia Is this a current diagnosis for this admission?: Yes Plan: 11/26/2018-serum potassium is 3.4 to supplement potassium. 11/27/2018-patient serum potassium is 3.7 to give potassium supplementations. 11/28/2018-serum potassium is 3.6 hypokalemia is resolved. 12/19/2018-potassium today is 3.4 patient is on potassium supplementations. (13) Hypercalcemia Is this a current diagnosis for this admission?: Yes Plan: 12/19/2018-patient serum calcium is 10.7 persistently elevated for the last 5 to 6 days. PTH and parathyroid related peptide labs are requested. Consultation with Dr. Johnson was requested. - Time Time Spent with patient: 15-24 minutes Medications reviewed and adjusted accordingly: Yes Anticipated discharge: Home
[2018-12-19 09:55] VITALS: BP 122/89
[2018-12-19] MEDS ORDERED: POTASSIUM CHLORIDE 10 MEQ CAPSULE.ER PO SCH (10:00)
--- NOTE | 2018-12-19 10:21 | PDOC PROGRESS REPORT ---
Subjective Progress Note for:: 12/19/18 Subjective:: Patient is a 38-year-old lady who I have seen while she was in the ICU during her first couple weeks of this admission. At that time I followed her out for acute kidney injury associated with anasarca, hypoalbuminemia and hypokalemia. She got better from all of those. Now Arpita Dominguez has reconsulted me because of hypercalcemia. Patient's calcium level was either low to normal during the first couple of weeks of her admission. Her calcium started to go up on December 12 at around 11 and is been lingering around 10.7-11 until today with a calcium of 10.7. Her albumin was initially low and has improved to within normal limits after albumin infusions and protein supplements in the ICU. Patient has also been on diuretics including Bumex and mostly Lasix initially being given intravenously and now has been switched to oral with decreasing dose. Her phosphorus which was last checked on December 16 was elevated at 8.2 with normal magnesium of 1.8. On November 30 she has serum protein electrophoresis which was negative for monoclonal spike. Patient said that she is fine and in fact wanted to go home today. She denies any symptoms. She claims that she is eating and drinking fluids. Reason For Visit: ACUTE RESPIRATORY FAILURE WITH HYPOXIA Physical Exam Vital Signs: Temp Pulse Resp BP Pulse Ox 98.1 F 93 16 122/89 H 85 L 12/19/18 08:19 12/19/18 08:33 12/19/18 08:33 12/19/18 08:19 12/19/18 08:33 Intake & Output 12/18/18 12/19/18 12/20/18 06:59 06:59 06:59 Intake Total 720 240 Balance 720 240 Weight 106.4 kg 107.7 kg Exam: General appearance: PRESENT: no acute distress, cooperative, well-developed, well-nourished Head exam: PRESENT: atraumatic, normocephalic Eye exam: PRESENT: conjunctiva slightly pale, PERRLA. ABSENT: scleral icterus Neck exam: ABSENT: JVD Respiratory exam: PRESENT: Normal breath sounds. ABSENT: crackles, rales, rhonchi, unlabored, wheezes Cardiovascular exam: PRESENT: Regular rate rhythm -+S1, +S2. ABSENT: diastolic murmur, systolic murmur GI/Abdominal exam: PRESENT: normal bowel sounds, soft. ABSENT: guarding, mass, tenderness Extremities exam: Very minimal trace bilateral lower extremity edema Neurological exam: PRESENT: alert, awake, oriented to person, place and time. Skin exam: PRESENT: dry, warm, Results Laboratory Results: 12/19/18 05:48 12/19/18 05:48 12/19/18 12/19/18 05:48 05:48 WBC 6.6 RBC 4.95 Hgb 13.2 Hct 40.8 MCV 82 MCH 26.7 L MCHC 32.4 RDW 20.8 H Plt Count 357 Seg Neutrophils % 54.3 Sodium 138.1 Potassium 3.4 L Chloride 99 Carbon Dioxide 25 Anion Gap 14 BUN 15 Creatinine 0.96 Est GFR ( Amer) > 60 Glucose 147 H Calcium 10.7 H 11/25/18 11/25/18 11/25/18 01:58 07:39 07:39 Creatine Kinase 50 CK-MB (CK-2) 0.53 Troponin I < 0.012 < 0.012 NT-Pro-B Natriuret Pep 766 H 11/25/18 11/25/18 11/25/18 12:03 12:03 18:17 Creatine Kinase 37 29 L CK-MB (CK-2) 0.37 Troponin I < 0.012 NT-Pro-B Natriuret Pep 11/25/18 11/26/18 18:17 03:32 Creatine Kinase CK-MB (CK-2) < 0.22 Troponin I < 0.012 NT-Pro-B Natriuret Pep 490 H Impressions: Abdomen Ultrasound 11/25/18 01:12 IMPRESSION: No free fluid identified within the upper quadrants. Evaluation of the lower quadrants was limited due to patient positioning as per the technologist. Head CT 11/27/18 00:00 IMPRESSION: Sinus disease. No acute intracranial imaging findings. EVIDENCE OF ACUTE STROKE: NO. Abdomen/Pelvis CT 12/03/18 00:00 IMPRESSION: Bilateral lower lobe consolidation -atelectasis. No pneumothorax pleural effusion. Endotracheal tube is present with tip 1.3 cm above the level of the kirill. IMPRESSION: Small amount of pelvic free fluid. No bowel dilatation. Chest CT 12/03/18 00:00 IMPRESSION: Bilateral lower lobe consolidation -atelectasis. No pneumothorax pleural effusion. Endotracheal tube is present with tip 1.3 cm above the level of the kirill. IMPRESSION: Small amount of pelvic free fluid. No bowel dilatation. KUB X-Ray 12/03/18 12:02 IMPRESSION: NO RADIOGRAPHIC EVIDENCE FOR ACUTE ABDOMINAL DISEASE.NG tube tip overlies the pyloric region of the stomach. Chest X-Ray 12/15/18 06:00 IMPRESSION: STABLE APPEARANCE OF THE CHEST. Assessment & Plan - Diagnosis (1) Hypercalcemia Is this a current diagnosis for this admission?: Yes Plan: I think this is iatrogenic likely secondary to mild dehydration or volume deplet ion with diuresis all throughout this hospitalization. Her phosphorus was elevated on December 16 and her serum protein electrophoresis was negative. This makes the diagnosis of primary hyperparathyroidism and paraproteinemia unlikely. I will repeat the patient's serum phosphorus level, magnesium and albumin level to be added on the morning blood drawn today. I recommend that the patient be given IV fluids with 0.9 normal saline at 150 mL an hour x2 L today. Patient was not happy with this and express her resistance while I was in the room. I explained to her that this is a simple treatment to normalize her calcium levels so that she can go home safer. I will order the fluids and patient can decide if she would allow us to give it. Discussed this with her nurse Anai today. (2) Hypokalemia Is this a current diagnosis for this admission?: Yes Plan: Replace per electrolyte protocol. (3) Cocaine use Is this a current diagnosis for this admission?: Yes (4) Morbid obesity with BMI of 45.0-49.9, adult Is this a current diagnosis for this admission?: Yes (5) Alcoholism Is this a current diagnosis for this admission?: Yes - Time Time with patient: 15-25 minutes
--- NOTE | 2018-12-19 10:59 | Left Against Medical Advice ---
Against Medical Advice Admission Date/Time: 11/25/18 06:45 Primary Care Provider: - Diagnosis: (1) Acute respiratory failure with hypoxia Is this a current diagnosis for this admission?: Yes (2) Alcohol dependence Is this a current diagnosis for this admission?: Yes (3) Alcoholism Is this a current diagnosis for this admission?: Yes (4) Morbid obesity with BMI of 40.0-44.9, adult Is this a current diagnosis for this admission?: Yes (5) Cocaine use Is this a current diagnosis for this admission?: Yes (6) Anasarca Is this a current diagnosis for this admission?: No (7) Tobacco dependence Is this a current diagnosis for this admission?: Yes (8) CHF (congestive heart failure) Is this a current diagnosis for this admission?: Yes (9) Anemia Is this a current diagnosis for this admission?: Yes (10) Pneumonia Is this a current diagnosis for this admission?: Yes (11) Hypomagnesemia Is this a current diagnosis for this admission?: Yes (12) Hypokalemia Is this a current diagnosis for this admission?: Yes (13) Hypercalcemia Is this a current diagnosis for this admission?: Yes - Summary: Summary: Please see Admission and Progress Notes as well. ZANDER GIBBS is a 38 F, who LEFT AGAINST MEDICAL ADVICE. The Patient was admitted on 11/25/18 06:45.
[2018-12-19] MEDS ORDERED: NORMAL SALINE 1000 ML 1,000 ML IV SCH (11:00)
[2018-12-19 11:04] LABS: ALBUMIN 4.3 g/dL (3.5-5.0); PHOSPHORUS 7.3 mg/dL (2.5-4.5)
--- NOTE | 2018-12-19 11:04 | PDOC PROGRESS REPORT ---
Subjective Progress Note for:: 12/19/18 Subjective:: Patient appears improved under impression she is leaving the hospital today Reason For Visit: ACUTE RESPIRATORY FAILURE WITH HYPOXIA Physical Exam Vital Signs: Temp Pulse Resp BP Pulse Ox 97.5 F 93 16 110/60 85 L 12/19/18 03:10 12/19/18 08:33 12/19/18 08:33 12/19/18 03:10 12/19/18 08:33 Intake & Output 12/18/18 12/19/18 12/20/18 06:59 06:59 06:59 Intake Total 720 240 Balance 720 240 Weight 106.4 kg 107.7 kg General appearance: PRESENT: no acute distress, cooperative, disheveled, morbidly obese, well-developed, well-nourished Head exam: PRESENT: atraumatic, normocephalic Eye exam: PRESENT: conjunctiva pale, EOMI. ABSENT: nystagmus Mouth exam: PRESENT: moist, neck supple, tongue midline Neck exam: ABSENT: carotid bruit, full ROM, JVD, lymphadenopathy, meningismus, tenderness, thyromegaly, tracheal deviation, tracheostomy, other Respiratory exam: PRESENT: decreased breath sounds, prolonged expiratory phas, rhonchi, symmetrical, unlabored. ABSENT: rales, retraction, stridor Cardiovascular exam: PRESENT: RRR, +S1, +S2. ABSENT: tachycardia Pulses: PRESENT: normal radial pulses GI/Abdominal exam: PRESENT: soft. ABSENT: mass, tenderness Extremities exam: ABSENT: calf tenderness, clubbing, joint swelling, tenderness Musculoskeletal exam: ABSENT: deformity, dislocation Neurological exam: PRESENT: awake Psychiatric exam: PRESENT: flat affect Skin exam: PRESENT: dry, warm Results Laboratory Results: 12/19/18 05:48 12/19/18 05:48 12/19/18 12/19/18 05:48 05:48 WBC 6.6 RBC 4.95 Hgb 13.2 Hct 40.8 MCV 82 MCH 26.7 L MCHC 32.4 RDW 20.8 H Plt Count 357 Seg Neutrophils % 54.3 Sodium 138.1 Potassium 3.4 L Chloride 99 Carbon Dioxide 25 Anion Gap 14 BUN 15 Creatinine 0.96 Est GFR ( Amer) > 60 Glucose 147 H Calcium 10.7 H 11/25/18 11/25/18 11/25/18 01:58 07:39 07:39 Creatine Kinase 50 CK-MB (CK-2) 0.53 Troponin I < 0.012 < 0.012 NT-Pro-B Natriuret Pep 766 H 11/25/18 11/25/18 11/25/18 12:03 12:03 18:17 Creatine Kinase 37 29 L CK-MB (CK-2) 0.37 Troponin I < 0.012 NT-Pro-B Natriuret Pep 11/25/18 11/26/18 18:17 03:32 Creatine Kinase CK-MB (CK-2) < 0.22 Troponin I < 0.012 NT-Pro-B Natriuret Pep 490 H Impressions: Abdomen Ultrasound 11/25/18 01:12 IMPRESSION: No free fluid identified within the upper quadrants. Evaluation of the lower quadrants was limited due to patient positioning as per the technologist. Head CT 11/27/18 00:00 IMPRESSION: Sinus disease. No acute intracranial imaging findings. EVIDENCE OF ACUTE STROKE: NO. Abdomen/Pelvis CT 12/03/18 00:00 IMPRESSION: Bilateral lower lobe consolidation -atelectasis. No pneumothorax pleural effusion. Endotracheal tube is present with tip 1.3 cm above the level of the kirill. IMPRESSION: Small amount of pelvic free fluid. No bowel dilatation. Chest CT 12/03/18 00:00 IMPRESSION: Bilateral lower lobe consolidation -atelectasis. No pneumothorax pleural effusion. Endotracheal tube is present with tip 1.3 cm above the level of the kirill. IMPRESSION: Small amount of pelvic free fluid. No bowel dilatation. KUB X-Ray 12/03/18 12:02 IMPRESSION: NO RADIOGRAPHIC EVIDENCE FOR ACUTE ABDOMINAL DISEASE.NG tube tip overlies the pyloric region of the stomach. Chest X-Ray 12/15/18 06:00 IMPRESSION: STABLE APPEARANCE OF THE CHEST. Assessment & Plan - Diagnosis (1) Acute respiratory failure with hypoxia Is this a current diagnosis for this admission?: No (2) CHF (congestive heart failure) Qualifiers: Heart failure type: diastolic Is this a current diagnosis for this admission?: No (3) Morbid obesity with BMI of 40.0-44.9, adult Is this a current diagnosis for this admission?: Yes Plan: When stable consider nutritional consult (4) Tobacco dependence Is this a current diagnosis for this admission?: Yes Plan: Transdermal nicotine
== END 2018-12-19 11:00 | disposition left against medical advice (07) | DRG 853 ==
LOC: ER 00:45 → EH 06:45 → ICU 08:21 → 3S 12-15 11:04
PROVIDERS: ADMIT Emergency Medicine; ATTEND Emergency Medicine
PROC: 0BH17EZ Insertion of Endotracheal Airway into Trachea, Via Natural or Artificial Opening (ICD-10-PCS; 2018-11-25)
PROC: 5A1955Z Respiratory Ventilation, Greater than 96 Consecutive Hours (ICD-10-PCS; 2018-11-25)
PROC: 0B9M8ZX Drainage of Bilateral Lungs, Via Natural or Artificial Opening Endoscopic, Diagnostic (ICD-10-PCS; principal; 2018-12-06)
DX: A41.9 Sepsis, unspecified organism (principal); J96.22 Acute and chronic respiratory failure with hypercapnia; J15.0 Pneumonia due to Klebsiella pneumoniae; J96.21 Acute and chronic respiratory failure with hypoxia; L03.116 Cellulitis of left lower limb; L03.115 Cellulitis of right lower limb; I50.32 Chronic diastolic (congestive) heart failure; F10.29 Alcohol dependence with unspecified alcohol-induced disorder; N17.9 Acute kidney failure, unspecified; E87.3 Alkalosis; K56.7 Ileus, unspecified; Z68.41 Body mass index [BMI] 40.0-44.9, adult; R31.9 Hematuria, unspecified; D50.8 Other iron deficiency anemias; E87.6 Hypokalemia; E83.42 Hypomagnesemia; K76.0 Fatty (change of) liver, not elsewhere classified; K70.9 Alcoholic liver disease, unspecified; N63.10 Unspecified lump in the right breast, unspecified quadrant; R60.1 Generalized edema; E88.09 Other disorders of plasma-protein metabolism, not elsewhere classified; F31.9 Bipolar disorder, unspecified; E66.01 Morbid (severe) obesity due to excess calories; F17.210 Nicotine dependence, cigarettes, uncomplicated; Y90.0 Blood alcohol level of less than 20 mg/100 ml
CPT/HCPCS: 36415; 70450; 71045; 71250; 71260; 74018; 74176; 74177; 76705; 80048; 80053; 80076; 80202; 80307; 81001; 82040; 82140; 82271; 82550; 82553; 82570; 82803; 82962; 83605; 83735; 83880; 84100; 84132; 84156; 84165; 84166; 84439; 84478; 84481; 84484; 84703; 85025; 85027; 85610; 86335; 87015; 87040; 87070; 87077; 87086; 87101; 87116; 87186; 87205; 87206; 89050; 93005; 93010; 94002; 94003; 94640; 94660; 94667; 94668; 94799; 96361; 96365; 96375; 99291; 99406; A4649; B4155; J0696; J1100; J1630; J1644; J1940; J2250; J2543; J2704; J2765; J3010; J3230; J3360; J3370; J3411; J3475; J3480; J3486; J3490; J7030; J7050; J7060; J7614; J7620; L3650; P9047; S0028; S0164